=== PATIENT | male | born 1940 | race Caucasian/White ===

== ENCOUNTER → 2017-08-14 13:15 | Outpatient (CLI) | payer MEDICARE, SELFPAY ==
--- NOTE | 2017-08-14 13:19 | XR_ITS ---
XR knee RT 4V HISTORY: ITS.REASON: Pain ORDERING PHYSICIAN: Deng Neri MD PATIENT AGE: 77 years COMPARISON: November 18, 2016 FINDINGS: No fracture or dislocation. No lytic or blastic change. Normal mineralization. Minimal osteophytes at the medial compartment and patellofemoral joint Vascular calcification. IMPRESSION: Minimal osteoarthritic change. No change with no acute finding
--- NOTE | 2017-08-14 15:33 | XR_ITS ---
XR hip RT 2-3V w/pelvis HISTORY: ITS.REASON: Right hip pain ORDERING PHYSICIAN: Deng Neri MD PATIENT AGE: 77 years COMPARISON: 10/26/2015 FINDINGS: Mild osteoarthritic changes of the right hip are once again noted. Mild osteoarthritis also noted at the left hip. There is however now evidence of cortical irregularity of the femoral head seen on the abduction view with faint subcortical lucency suspicious for avascular necrosis with some cortical collapse. Consider MRI for confirmation. There remains some flattening of the lateral aspect of the femoral head on the right similar to the previous exam which may be seen with femoral acetabular impingement Surgical clips are present at the symphysis pubis. IMPRESSION: 1. 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 Consider confirmation with MRI. 2. Mild osteoarthritis of the both hips
== END ==
PROVIDERS: PCP Family Medicine; Visit Provider Orthopaedic Surgery
DX: M25.561 Pain in right knee (principal); M25.551 Pain in right hip
CPT/HCPCS: 73502; 73564

== ENCOUNTER → 2017-11-15 10:13 | Outpatient (POV) | payer MEDICARE, SELFPAY | PROVIDERS: Family Provider Family Medicine; PCP Family Medicine; Visit Provider Podiatrist | DX: Z00.00 Encounter for general adult medical examination without abnormal findings (principal) ==

== ENCOUNTER → 2017-11-20 08:14 | Outpatient (CLI) | payer MEDICARE, SELFPAY ==
[2017-11-20 10:54] LABS: Albumin Level 3.5 gm/dL (3.4-5.0); Anion Gap 9.5 mEq/L (5-15); Blood Urea Nitrogen 16 mg/dL (7-18); Calcium 8.8 mg/dL (8.5-10.1); Carbon Dioxide 30 mmol/L (21.0-32.0); Chloride 108 mmol/L (98-107); Creatinine,Serum 1.22 mg/dL (0.70-1.30); Estimated Glomerular Filt Rate 58 ml/min (>60); GFR (African American) 70 ML/MIN (>60); Glucose 124 mg/dL (74-106); Phosphorous 3.5 mg/dL (2.4-4.9); Potassium 4.5 mmoL/L (3.5-5.1); Sodium 143 mmol/L (136-145)
== END ==
PROVIDERS: Visit Provider Internal Medicine
DX: N18.3 Chronic kidney disease, stage 3 (moderate) (principal)
CPT/HCPCS: 36415; 80069

== ENCOUNTER → 2017-12-20 13:53 | Outpatient (POV) | payer MEDICARE, SELFPAY | PROVIDERS: Family Provider Family Medicine; PCP Family Medicine; Visit Provider Podiatrist | DX: Z00.00 Encounter for general adult medical examination without abnormal findings (principal) ==

== ENCOUNTER → 2018-06-23 08:25 | Outpatient (CLI) | payer MEDICARE, SELFPAY ==
[2018-06-23 09:50] LABS: Blood Urea Nitrogen 22 mg/dL (7-18); Creatinine,Serum 1.24 mg/dL (0.70-1.30); Estimated Glomerular Filt Rate 57 ml/min (>60); GFR (African American) 69 ML/MIN (>60)
== END ==
PROVIDERS: Visit Provider Family Medicine
DX: G45.9 Transient cerebral ischemic attack, unspecified (principal)
CPT/HCPCS: 36415; 82565; 84520

== ENCOUNTER → 2018-06-25 08:57 | Outpatient (CLI) | payer MEDICARE, SELFPAY ==
--- NOTE | 2018-06-25 | CI_ITS ---
Cerebrovascular Exam Indications: 433.10 Occlusion/stenosis of carotid artery without cerebral infarction. 435.9 Unspecified transient cerebral ischemia. IMPRESSIONS 1. The bilateral vertebral arteries are patent with normal antegrade flow. 2. Study suggests 50-69% stenosis involving the right internal carotid artery. 3. Study suggests 50-69%(upper end of scale)stenosis involving the left internal carotid artery. History: Risk factors: Hypertension. Diabetes mellitus. Carotid duplex study. Complete study and Doppler flow study including spectral analysis, color and anderson scale imaging. Height: Height: 180.3cm. Height: 71in. Weight: Weight: 65.8kg. Weight: 144.7lb. Body mass index: BMI: 20.2kg/m^2. Body surface area: BSA: 1.81m^2. Location: Vascular laboratory. Patient status: Outpatient. Tables: Arterial flow: + +--------+--------+ Location V sys V ed + +--------+--------+ Right CCA - proximal 112cm/s 23.6cm/s + +--------+--------+ Right CCA - distal 130cm/s 25.9cm/s + +--------+--------+ Right ECA 88.7cm/s -------- + +--------+--------+ Right ICA - proximal 144cm/s 40.9cm/s + +--------+--------+ Right ICA - mid 172cm/s 35.8cm/s + +--------+--------+ Right ICA - distal 157cm/s 38.3cm/s + +--------+--------+ Right vertebral 53.3cm/s -------- + +--------+--------+ Left CCA - proximal 94.3cm/s 19.6cm/s + +--------+--------+ Left CCA - distal 92.9cm/s 21.6cm/s + +--------+--------+ Left ECA 119cm/s -------- + +--------+--------+ Left ICA - proximal 216cm/s 68.5cm/s + +--------+--------+ Left ICA - mid 249cm/s 51.5cm/s + +--------+--------+ Left ICA - distal 141cm/s 27.1cm/s + +--------+--------+ Left vertebral 78.6cm/s -------- + +--------+--------+ Velocity ratios: + + + + + + Right, V sys Right, V ed Left, V sys Left, V ed + + + + + + Max ICA/dist CCA 1.32 1.58 2.68 3.17 + + + + + + (Report amended ) Electronically signed by: Juan Trent [id number]
--- NOTE | 2018-06-25 09:33 | CT_ITS ---
CT head/brain wo/w con HISTORY: Left-sided weakness, visual loss ITS.REASON: TIA ORDERING PHYSICIAN: Jared Ramos MD PATIENT AGE: 78 years COMPARISON: 06/17/2018 TECHNIQUE: Axial images obtained without and with contrast enhancement. 100 mL Isovue 300 given IV. Brain and bone windows reviewed. All CT scans at the facility use one or more dose reduction, viz: automated exposure control, ma/kV adjustment per patient size (including targeted exams where dose is matched to indication, i.e. head), or iterative reconstruction technique. FINDINGS: No midline shift, mass effect, intracranial hemorrhage, hydrocephalus, or extra-axial fluid collection is evident. There are mild periventricular ischemic gliotic changes. No enhancing lesions are evident. No of evolving infarctions. No mass effect. No acute intracranial hemorrhage. There is a well-circumscribed lucency in the right parietal bone which has a benign appearance and is similar to an older exam of 08/07/2013. There is severe bilateral ethmoid opacification and moderate to severe mucosal thickening of left maxillary sinus as well as moderate mucosal thickening left frontal sinus. A retention cyst is present in the right sphenoid sinus and there is mucosal thickening of the right maxillary sinus. IMPRESSION: 1. No acute intracranial findings with no significant change. 2. Sinusitis
--- NOTE | 2018-06-25 10:22 | HMH.ITSHM ---
Current Home Medications as stated by this patient Nader Briggs or customer development representative. []AMARYL,OMEPRAZOLE,LEVOTHRYOXINE,SIMVASTATIN,CLOPIDOGREL,B-12,B COMLEX,COQ10,VIT D3,LININOPRIL,ASPIRIN,
== END ==
PROVIDERS: PCP Family Medicine; Visit Provider Family Medicine
DX: G45.8 Other transient cerebral ischemic attacks and related syndromes
CPT/HCPCS: 70470; 93880; Q9967

== ENCOUNTER → 2018-07-21 15:00 | Outpatient (CLI) | payer MEDICARE, SELFPAY ==
--- NOTE | 2018-07-21 15:03 | CT_ITS ---
CT knee RT wo con INDICATION: Right knee pain ITS.REASON: RT KNEE PAIN ORDERING PHYSICIAN: Jared Ramos MD PATIENT AGE: 78 years COMPARISON: 08/14/2017 TECHNIQUE: Axial images are obtained without contrast. Sagittal and coronal reformatted images are reviewed as well. All CT scans at the facility use one or more dose reduction, viz: automated exposure control, ma/kV adjustment per patient size (including targeted exams where dose is matched to indication, i.e. head), or iterative reconstruction technique. FINDINGS: There are mild osteoarthritic changes involving all 3 compartments with slight decrease in the joint space medially and minimal osteophyte formation along the femoral condyles in the medial and lateral aspect of the tibia as well as the tibial spines. Mild osteophyte formation is also present at the posterior superior patella. No fracture or dislocation. No bony destructive process. There is diffuse atherosclerotic vascular calcification. There is a Harkins's cyst present extending into the superior aspect of the gastrocnemius. This cyst measures 4 cm longitudinal 1.2 cm AP and 1.4 cm transverse. This extends along the medial aspect of the calf. IMPRESSION: 1. Mild osteoarthritic changes involving all 3 compartments. 2. 4 cm Harkins cyst. 3. Atherosclerotic disease
== END ==
PROVIDERS: PCP Family Medicine; Visit Provider Family Medicine
DX: M25.561 Pain in right knee (principal)
CPT/HCPCS: 73700

== ENCOUNTER → 2018-08-27 07:43 | Outpatient (CLI) | payer MEDICARE, SELFPAY ==
--- NOTE | 2018-08-27 07:47 | MR_ITS ---
MR knee RT wo con Ordering Physician: Deepthi Martinez Patient Age: 78 years: Male HISTORY: ITS.REASON: RT KNEE PAIN Entire right knee pain 6 days 8 months TECHNIQUE: Multiplanar multisequence imaging performed on 1.5 [facility] COMPARISON :CT right knee June 2017 FINDINGS Medial compartment. Medial Meniscal Tear clearly evident involving the posterior horn extending to the body. Horizontal oblique tear extending to the inferior surface of the meniscus at posterior horn-body junction. Cartilage at the medial meniscus is fairly well maintained with only some mild diffuse thinning most evident at the tibial aspect Lateral compartment Lateral meniscus intact. Cartilage at the lateral compartment appear well maintained. Ligamentous/tendon: .. ACL and PCL are intact. . medial collateral ligament and lateral collateral ligament intact. Patellar tendon intact quadriceps tendon with slight signal variations just superior patella.-Most likely intact but cannot exclude minor edema here Patellofemoral joint. There may be some subtle chondral scuffing at the posterior collagen patella with very minimal.. Scant increased joint most evident at suprapatellar bursa Scant spurring about the margins of patella and patellofemoral joint. . Osseous structures. No bone contusion. There is a fluid-filled structure along the margin medial head gastrocnemius. This measures 6 cm length times up to 12 mm diameter. Suspect may be a Harkins's cyst as it seems to track towards the medial compartment./Posterior joint Dilated vein or other structure also considered but less likely IMPRESSION--------- 1. Medial Meniscal Tear-involving posterior horn & posterior body of medial meniscus . This extends through inferior surface meniscus at body-posterior horn junction 2. Elongated fluid-filled structure overlying the medial head gastrocnemius. Favor Harkins's cyst-like process. (Less likely, & doubt slow flow distended vein.) 3. Minor degenerative changes otherwise. ..Suspect subtle chondral scuffing patellofemoral joint
== END ==
PROVIDERS: PCP Family Medicine; Visit Provider Orthopaedic Surgery
DX: M25.561 Pain in right knee (principal)
CPT/HCPCS: 73721

== ENCOUNTER → 2018-10-13 13:51 | Outpatient (CLI) | payer MEDICARE, SELFPAY ==
[2018-10-13 14:04] LABS: Microscopic, Urine URINE MICROSCOPIC (MICROSCOPIC)
[2018-10-13 14:49] LABS: Basophils % 0.3 % (0.1-2.0); Eosinophils # 0.2 K/mm3 (0.0-0.4); Eosinophils % 2.6 % (0.1-12.0); Hematocrit 35.5 % (42.0-52.0); Hemoglobin 11.7 g/dL (14.1-18.0); Lymphocytes # 1.4 K/mm3 (0.7-4.5); Lymphocytes % 21.5 % (10-50); Mean Corpuscular HGB Conc 33.1 g/dL (31.8-35.4); Mean Corpuscular Hemoglobin 30.9 pg (27.0-31.2); Mean Corpuscular Volume 93.3 fl (80-94); Mean Platelet Volume 7.6 fl (7.4-10.4); Monocytes # 0.6 K/mm3 (0.1-1.0); Monocytes % 9.1 % (1.7-9.3); Neutrophils # 4.4 K/mm3 (1.8-7.8); Neutrophils % 66.6 % (37.0-80.0); Platelet Count 216 K/mm3 (142-424); Red Cell Distribution Width 13.4 % (11.5-17.5); White Blood Count 6.6 K/mm3 (4.8-10.8)
[2018-10-13 15:09] LABS: Appearance,Urine CLEAR (Clear); Bilirubin,Urine Negative (Negative); Blood, Urine Negative (Negative); Color,Urine YELLOW (Yellow); Glucose,Urine (UA) Negative (Negative); Ketones,Urine Negative (Negative); Leukocyte Esterase,Urine Negative (Negative); Nitrate,Urine Negative (Negative); Protein,Urine Negative (Negative); Specific Gravity, Urine <= 1.005 (1.005-1.030); Urobilinogen,Urine 0.2 EU/dl (0.2)
[2018-10-13 15:22] LABS: Bacteria,Urine Trace /lpf; Mucus,Urine 1+ /lpf; Squamous Epithelial Cell,Urine Occasional #/hpf (0-5); WBC,Urine Occasional #/hpf (0-3)
[2018-10-13 15:24] LABS: Creatinine,Urine Random 36 mg/dL (20-320); Total Protein,Urine Random 18.5 mg/dL (0.0-11.9)
[2018-10-13 17:34] LABS: Albumin Level 3.7 gm/dL (3.4-5.0); Anion Gap 14.8 mEq/L (5-15); Blood Urea Nitrogen 23 mg/dL (7-18); Calcium 8.5 mg/dL (8.5-10.1); Carbon Dioxide 27 mmol/L (21.0-32.0); Chloride 107 mmol/L (98-107); Creatinine,Serum 1.32 mg/dL (0.70-1.30); Estimated Glomerular Filt Rate 53 ml/min (>60); GFR (African American) 64 ML/MIN (>60); Glucose 64 mg/dL (74-106); Phosphorous 3.1 mg/dL (2.4-4.9); Potassium 4.8 mmoL/L (3.5-5.1); Sodium 144 mmol/L (136-145)
== END ==
PROVIDERS: Visit Provider Internal Medicine
DX: N18.3 Chronic kidney disease, stage 3 (moderate) (principal)
CPT/HCPCS: 36415; 80069; 81001; 82570; 82776; 84155; 85025

== ENCOUNTER → 2019-04-13 08:29 | Outpatient (CLI) | payer MEDICARE, SELFPAY ==
[2019-04-13 08:37] LABS: Microscopic, Urine URINE MICROSCOPIC (MICROSCOPIC)
[2019-04-13 09:09] LABS: Basophils % 0.4 % (0.1-2.0); Eosinophils # 0.2 K/mm3 (0.0-0.4); Eosinophils % 2.7 % (0.1-12.0); Hemoglobin 11.6 g/dL (14.1-18.0); Lymphocytes # 1.8 K/mm3 (0.7-4.5); Lymphocytes % 23.4 % (10-50); Mean Corpuscular HGB Conc 31.2 g/dL (31.8-35.4); Mean Corpuscular Hemoglobin 28.9 pg (27.0-31.2); Mean Corpuscular Volume 92.8 fl (80-94); Mean Platelet Volume 8.2 fl (7.4-10.4); Monocytes # 0.5 K/mm3 (0.1-1.0); Monocytes % 6.9 % (1.7-9.3); Neutrophils # 5.1 K/mm3 (1.8-7.8); Neutrophils % 66.5 % (37.0-80.0); Platelet Count 215 K/mm3 (142-424); Red Blood Count 3.99 M/mm3 (4.60-6.20); Red Cell Distribution Width 14.5 % (11.5-17.5); White Blood Count 7.7 K/mm3 (4.8-10.8)
[2019-04-13 10:09] LABS: Albumin Level 3.4 gm/dL (3.4-5.0); Blood Urea Nitrogen 16 mg/dL (7-18); Calcium 8.7 mg/dL (8.5-10.1); Carbon Dioxide 29 mmol/L (21.0-32.0); Chloride 111 mmol/L (98-107); Creatinine,Serum 1.16 mg/dL (0.70-1.30); Estimated Glomerular Filt Rate 61 ml/min (>60); GFR (African American) 74 ML/MIN (>60); Glucose 120 mg/dL (74-106); Phosphorous 2.7 mg/dL (2.4-4.9); Sodium 147 mmol/L (136-145)
[2019-04-13 11:46] LABS: Appearance,Urine CLEAR (Clear); Blood, Urine Negative (Negative); Color,Urine YELLOW (Yellow); Glucose,Urine (UA) Negative (Negative); Ketones,Urine Negative (Negative); Leukocyte Esterase,Urine Negative (Negative); Nitrate,Urine Negative (Negative); Protein,Urine 2+ (Negative); Specific Gravity, Urine >= 1.030 (1.005-1.030); Urobilinogen,Urine 0.2 EU/dl (0.2)
[2019-04-13 11:59] LABS: Bacteria,Urine Trace /lpf; Hyaline Casts,Urine Occasional #/lpf (0); Mucus,Urine 1+ /lpf
[2019-04-13 19:49] LABS: Creatinine,Urine Random 299 mg/dL (20-320); Total Protein,Urine Random 175.5 mg/dL (0.0-11.9)
[2019-04-13 21:21] LABS: PH,Urine 5.5 (5.0-8.5)
[2019-04-13 21:33] LABS: Bilirubin,Urine Negative (Negative)
[2019-04-14 15:01] LABS: Vitamin D 25 Hydroxy 47.3 ng/mL (30.0-100.0)
[2019-04-14 15:19] LABS: Calcium, Ionized 5.3 mg/dL (4.5-5.6)
[2019-04-15 10:20] LABS: Parathyroid Hormone Intact 27 pg/mL (15-65)
== END ==
PROVIDERS: Visit Provider Internal Medicine
DX: N18.3 Chronic kidney disease, stage 3 (moderate) (principal)
CPT/HCPCS: 36415; 80069; 81001; 82330; 82570; 82652; 83970; 84155; 85025

== ENCOUNTER 2019-04-29 15:51 | Observation (INO) ==
[2019-04-29 17:11] LABS: Basophils % 0.4 % (0.1-2.0); Eosinophils # 0.1 K/mm3 (0.0-0.4); Eosinophils % 1.8 % (0.1-12.0); Hematocrit 39.5 % (42.0-52.0); Lymphocytes # 1.3 K/mm3 (0.7-4.5); Lymphocytes % 19.1 % (10-50); Mean Corpuscular HGB Conc 30.4 g/dL (31.8-35.4); Mean Corpuscular Volume 93.3 fl (80-94); Mean Platelet Volume 7.9 fl (7.4-10.4); Monocytes # 0.5 K/mm3 (0.1-1.0); Monocytes % 6.9 % (1.7-9.3); Neutrophils # 4.8 K/mm3 (1.8-7.8); Neutrophils % 71.9 % (37.0-80.0); Platelet Count 197 K/mm3 (142-424); Red Blood Count 4.23 M/mm3 (4.60-6.20); Red Cell Distribution Width 14.6 % (11.5-17.5); White Blood Count 6.7 K/mm3 (4.8-10.8)
[2019-04-29 17:24] LABS: Alanine Aminotransferase 26 U/L (12-78); Albumin Level 3.7 gm/dL (3.4-5.0); Alkaline Phosphatase 93 U/L (46-116); Anion Gap 12.9 mEq/L (5-15); Aspartate Amino Transferase 31 U/L (15-37); Bilirubin,Total 0.4 mg/dL (0.2-1.0); Blood Urea Nitrogen 24 mg/dL (7-18); Calcium 8.6 mg/dL (8.5-10.1); Carbon Dioxide 29 mmol/L (21.0-32.0); Chloride 105 mmol/L (98-107); Globulin 3.8 gm/dl (1.3-3.2); Glucose 96 mg/dL (74-106); Sodium 143 mmol/L (136-145); Total Protein,Serum 7.5 gm/dL (6.4-8.2)
--- NOTE | 2019-04-29 17:25 | Emergency Department Note ---
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, Occlusion of common femoral artery Altered mental status Qualifiers: Altered mental status type: unspecified Qualified Code(s): R41.82 - Altered mental status, unspecified Hypertension Qualifiers: Hypertension type: essential hypertension Qualified Code(s): I10 - Essential (primary) hypertension Disposition: Admitted As Inpatient Condition on Discharge: Fair - Critical Care Critical Care Time: Yes (30) Attestation: On 04/29/19, the high probability of a clinically significant, sudden or life threatening deterioration of the following system(s) required my full and direct attention, intervention and personal management. The time I documented below is in addition to time spent performing reported procedures but includes the following listed in this critical care notation. Total Critical Care Time: 30 Vital system(s) involved:: Circulatory Failure, Central Nervous System, Metabolic Failure My critical care processes included: Assessment & monitoring of V/S, Initial and Re-exams, Data Review/Interpretation, Coordinating Care, Medication Orders and management, Documentation Medical Decision Making - Jovani Inquiry Pt receiving controlled substance: No Vital Signs: 04/29/19 16:07 04/29/19 17:26 04/29/19 19:38 Temperature 98.4 F Temperature Source Oral Pulse Rate Pulse Rate [Right Radial] 74 77 70 Respiratory Rate 18 16 Blood Pressure Blood Pressure [Right Arm] 215/117 H 204/83 H 158/84 H Blood Pressure Mean [Right Arm] 149 123 108 Blood Pressure Source Blood Pressure Source [Right Arm] Automatic Cuff Manual Cuff/ Doppler Blood Pressure Position Blood Pressure Position [Right Arm] Sitting Sitting 02 Sat by Pulse Oximetry 97 97 95 Oxygen Delivery Method Room Air Room Air Room Air 04/29/19 21:49 Temperature 98.0 F Temperature Source Temporal Artery Scan Pulse Rate 65 Pulse Rate [Right Radial] Respiratory Rate 19 Blood Pressure 154/70 H Blood Pressure [Right Arm] Blood Pressure Mean [Right Arm] Blood Pressure Source Automatic Cuff Blood Pressure Source [Right Arm] Blood Pressure Position Sitting Blood Pressure Position [Right Arm] 02 Sat by Pulse Oximetry Oxygen Delivery Method Room Air - Lab Data Lab results reviewed: Yes: I reviewed the patient's lab results. Lab Results 04/29/19 16:35: POC Glucose 92 04/29/19 16:50: WBC 6.7, RBC 4.23 L, Hgb 12.0 L, Hct 39.5 L, MCV 93.3, MCH 28.4, MCHC 30.4 L, RDW 14.6, Plt Count 197, MPV 7.9, Neut % (Auto) 71.9, Lymph % (Auto) 19.1, Craig % (Auto) 6.9, Eos % (Auto) 1.8, Baso % (Auto) 0.4, Neut # (Auto) 4.8, Lymph # (Auto) 1.3, Craig # (Auto) 0.5, Eos # (Auto) 0.1, Baso # (Auto) 0.0 04/29/19 16:50: Sodium 143, Potassium 3.9, Chloride 105, Carbon Dioxide 29, Anion Gap 12.9, BUN 24 H, Creatinine 1.55 H, Estimated Creat Clear 39, Estimated GFR 44 L, Est GFR ( Amer) 53 L, Glucose 96 D, Calcium 8.6, Total Bilirubin 0.4, AST 31 D, ALT 26, Alkaline Phosphatase 93, Troponin I < 0.02, Total Protein 7.5, Albumin 3.7, Globulin 3.8 H, Albumin/Globulin Ratio 1.0 L 04/29/19 16:50: Lactate 1.2 04/29/19 19:23: Troponin I < 0.02 Result diagrams: 04/29/19 16:50 04/29/19 16:50 Orders (Tests/Meds): ED MEDICATIONS Generic Name Dose Route Start Last Admin Trade Name Freq PRN Reason Stop Dose Admin Acetaminophen 650 mg 04/29/19 21:21 Acetaminophen 325mg Tab PO 05/29/19 21:20 Q4HP PRN As Needed for Fever or Pain Aspirin 81 mg 04/29/19 21:21 04/29/19 22:59 Aspirin 81mg Enteric Coated Tablet PO 05/29/19 21:20 Not Given DAILY BINA Atorvastatin Calcium 20 mg 04/29/19 21:21 04/29/19 22:48 Lipitor 20mg Tablet PO 05/29/19 21:20 20 mg DAILY BINA Administration Clopidogrel Bisulfate 75 mg 04/29/19 21:21 04/29/19 22:47 Plavix 75mg Tablet PO 05/29/19 21:20 75 mg ONCE BINA Administration Clopidogrel Bisulfate 75 mg 04/29/19 23:00 04/29/19 22:59 Plavix 75mg Tablet PO 05/29/19 22:59 75 mg HS BINA Administration Glimepiride 2 mg 04/30/19 09:00 Amaryl 2mg Tablet PO 05/30/19 08:59 DAILY BINA Lisinopril 20 mg 04/29/19 21:21 04/29/19 22:47 Zestril 5mg Tablet PO 05/29/19 21:20 20 mg BID BINA Administration Metoprolol Tartrate 25 mg 04/29/19 21:21 04/29/19 22:48 Lopressor 25mg Tablet PO 05/29/19 21:20 25 mg BID BINA Administration Non-Formulary Medication 2,000 unit 04/29/19 21:21 Cholecalciferol (Vitamin D3) [Vitamin D3] PO 05/29/19 21:20 ONCE BINA Non-Formulary Medication 1 mg 04/29/19 21:21 04/29/19 22:59 Krill Oil PO 05/29/19 21:20 Not Given DAILY BINA Non-Formulary Medication 88 mcg 04/29/19 21:21 Levothyroxine Sodium [Tirosint] PO 05/29/19 21:20 ONCE BINA Non-Formulary Medication 40 mg 04/29/19 21:21 Omeprazole [Omeprazole 40mg Capsule] PO 05/29/19 21:20 ONCE BINA Non-Formulary Medication 200 mg 04/29/19 21:21 Ubidecarenone [Co Q-10] PO 05/29/19 21:20 ONCE BINA Non-Formulary Medication 0 mcg 04/29/19 21:00 04/29/19 22:59 Mecobalamin [B-12] SL 05/29/19 20:59 Not Given HS BINA Ondansetron HCl 4 mg 04/29/19 21:21 Zofran 4mg/2ml Vial IV 05/29/19 21:20 Q8HP PRN Nausea Discontinued Medications Generic Name Dose Route Start Last Admin Trade Name Freq PRN Reason Stop Dose Admin Acetaminophen 1,000 mg 04/29/19 17:57 04/29/19 17:59 Tylenol 500mg Tablet PO 04/29/19 17:58 1,000 mg ONCE ONE Administration Clonidine HCl 0.1 mg 04/29/19 17:27 04/29/19 17:59 Clonidine 0.1mg Tablet PO 04/29/19 17:28 0.1 mg ONCE ONE Administration Ioversol 75 ml 04/29/19 18:32 04/29/19 18:33 Rad-Optiray 350 100ml Vial IV 04/29/19 18:33 75 ml ONCE ONE Administration Protocol Sodium Chloride 10 ml 04/29/19 18:32 04/29/19 18:33 Rad-Saline Flush 10ml Syringe IV 04/29/19 18:33 10 ml ONCE ONE Administration ORDERS Category Date Time Status CT abdomen pelvis w con Stat Cat Scan 04/29/19 17:25 Taken Basic Metabolic Panel AMLAB Lab 04/30/19 06:00 Ordered Complete Blood Count Auto Diff AMLAB Lab 04/30/19 06:00 Ordered Troponin I Q6H Lab 04/30/19 05:51 Ordered Blood Culture Stat Micro 04/29/19 17:42 Received - CT Data CT Scan: Head Time Received: 17:[address] Reviewed: Yes: I have reviewed the patient's CT results, I have viewed the radiologist's interpretation Findings Narrative: FINDINGS: No midline shift, mass effect, intracranial hemorrhage, hydrocephalus, or extra-axial fluid collection is evident. There is generalized atrophy with hypoattenuation of the periventricular white matter consistent with microangiopathic changes. The calvarium has an unremarkable appearance. No mastoid effusion. Retention cyst is present in the right aspect of the sphenoid sinus. No sinus air-fluid level. IMPRESSION: No acute intracranial finding Dictated by: Juan Trent MD 04/29/2019 16:55 Electronically signed by Juan Trent MD in [place] 04/29/2019 16:55 CT of the abdomen pelvis reports CT of the abdomen pelvis reports extensive narrowing/occlusion due to atherosclerotic changes of bilateral common femoral artery. - Physician Consults Physician Consulted: Dr. Louis Time: 20:00 Reason -: Admission Comment/Response: Discussed with Dr. Louis regarding the patient and plan to get the patient admitted to the floor. Additional Consult: Dr. Sam Time: 20:15 Reason -: Pt condition Comment/Response: Discussed with Dr. Sam, the reduction plant supervisor, regarding the patient CT scan finding of the bilateral common femoral artery occlusion and he was agreeable to get the pt admited to the hospitalist service so that he can consult and follow-up on the patient. - Reevaluation(s) Time: 19:30 Reevaluation #1: Patient was improving in the emergency department. His blood pressure was gradually getting better. He still seems to be slightly confused but he was more listening and less restless. I discussed the CT scan finding and the lab findings with the patient and the daughter. Plan to do a CT of the abdomen pelvis to review any other causes of hypertension. Altered Mental Status HPI - General Chief Complaint: Altered Mental Status Stated Complaint: BP,MIJARES,Confussed Time Seen by Provider: 04/29/19 17:00 Mode of Arrival: Ambulatory Source of Information: Relative Limitations: No Limitations Description of Symptoms (Recalled from ER Triage Doc. by RN): PT BROUGHT IN BY DAUGHTER WITH C/O MIJARES, ELEVATED BP AND INCREASED CONFUSION SINCE THEIR ED VISIT LAST NIGHT. - History of Present Illness HPI narrative: 78-year-old male was brought in by the daughter for having altered mental status with confusion and elevated blood pressure at home. According to the daughter the patient has not been acting right for the last 2 to 3 days. His blood pressure has also been significantly high for the same. Of time. He was brought to the emergency department yesterday evening for the high blood pressure and he was discharged home after being managed for the same. He was feeling better after the blood pressure was back to normal. He continued his medications and went to his primary care provider this morning, but since the evening at about 3 PM he started being confused again and his blood pressure was being elevated. The daughter states the patient has been taking his medications regularly. When she called her primary care provider about the elevated blood pressure and the confusion she was informed to bring the patient back to the emergency department so that he could be evaluated further. Patient does not give much history. He denies having any chest pain or shortness of breath. Denies having any nausea or vomiting. Patient seems to be confused and acting erratic at times. MD complaint: altered mental status, confusion Onset (ago): hour(s) Severity: moderate Consistency of symptoms: constant - Related Data Home Medications Medication Instructions Recorded Confirmed clopidogrel 75 mg tablet 75 mg PO DAILY 08/14/17 04/29/19 glimepiride 2 mg tablet 4 mg PO QAM 08/14/17 04/29/19 krill oil 500 mg capsule 1 mg PO DAILY 08/14/17 04/29/19 levothyroxine 88 mcg capsule 88 mcg PO ONCE 08/14/17 04/29/19 mecobalamin (vitamin B12) 1,000 2,000 mcg SUBLINGUAL DAILY 08/14/17 04/29/19 mcg disintegrating tablet,sublingual omeprazole 40 mg capsule,delayed 40 mg PO ONCE 08/14/17 04/29/19 release cholecalciferol (vitamin D3) 50 4,000 unit PO ONCE 10/31/17 04/29/19 mcg (2,000 unit) capsule coenzyme Q10 75 mg capsule 100 mg PO DAILY cap 10/31/17 04/29/19 lisinopril 5 mg tablet 20 mg PO BID 90 Days #90 01/09/18 04/29/19 aspirin 81 mg tablet,delayed 81 mg PO DAILY 07/29/18 04/29/19 release atorvastatin 20 mg tablet 20 mg PO DAILY 12/09/18 04/29/19 lancets 30 gauge See Dose Instructions .ROUTE 02/10/19 04/29/19 .MEDSUPPLY #100 each metoprolol tartrate 25 mg tablet 25 mg PO BID #180 tab 02/10/19 04/29/19 Vitamin B Complex [B Complete] 1 each PO DAILY 04/29/19 04/29/19 Allergies Allergy/AdvReac Type Severity Reaction Status Date / Time NSAIDS (Non-Steroidal Allergy Unknown Kidneys Verified 04/28/19 09:21 Anti-Inflamma [facility] History - Hepatitis A Screen Drug use history?: No High risk sexual behaviors?: No History of sexually transmitted infection?: No Currently employed?: No Childcare worker?: No Do you have indoor plumbing?: Yes Do you have electricity?: Yes Attestation statement:: This patient has been screened for Hepatitis A risk factors. 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 Varicose veins right and left leg, - Social History Smoking Status: Never smoker Alcohol Intake: never Alcohol Intake Frequency:: other Substance Use Type: denies use Occupational Status: retired Housing: house Household Members: family Family Hx:: Hypertension, Cancer ROS Obtained: Yes All systems reviewed & no additional complaints Physical Exam - General General appearance: alert, in no apparent distress, other (Patient looks confused and does not answer questions appropriately. He seems to be acting erratic at times.) - Head Head exam: atraumatic, normocephalic, normal inspection - Eye Eye exam: Present: normal appearance, PERRL, EOMI - ENT ENT exam: Present: normal exam, normal oropharynx, mucous membranes moist, TM's normal bilaterally, normal external ear exam - Neck Neck exam: Present: normal inspection, full ROM, trachea midline - Chest Chest inspection: Present: normal inspection, symmetric chest wall rise. Absent: tenderness - Respiratory Respiratory exam: Present: normal lung sounds bilaterally. Absent: respiratory distress - Cardiovascular Cardiovascular exam: Present: regular rate, normal rhythm, other (Patient's b lood pressure is consistently high in the emergency department.). Absent: JVD - Abdominal Exam Abdominal exam: Present: soft, normal bowel sounds. Absent: distention, tenderness, guarding - Extremities Exam Extremities exam: Present: normal inspection, full ROM, normal capillary refill. Absent: calf tenderness - Back Exam Back exam: Present: normal inspection. Absent: tenderness - Neurological Exam Neurological exam: Present: alert, CN II-XII intact, reflexes normal, other (Patient seems to be confused. Does not answer questions appropriately. He is able to recall past memories but does not recall present short-term memories.) - Psychiatric Psychiatric exam: Present: normal affect, normal mood - Skin Skin exam: Present: warm, dry, intact, normal color
[2019-04-30 06:48] LABS: Basophils % 0.3 % (0.1-2.0); Eosinophils # 0.1 K/mm3 (0.0-0.4); Hematocrit 32.5 % (42.0-52.0); Lymphocytes # 1.2 K/mm3 (0.7-4.5); Monocytes # 0.4 K/mm3 (0.1-1.0); Neutrophils # 2.9 K/mm3 (1.8-7.8); Red Cell Distribution Width 14.6 % (11.5-17.5); White Blood Count 4.6 K/mm3 (4.8-10.8)
[2019-04-30 07:26] LABS: Eosinophils % 2.4 % (0.1-12.0); Lymphocytes % 26.3 % (10-50); Mean Corpuscular HGB Conc 30.9 g/dL (31.8-35.4); Mean Corpuscular Volume 91.7 fl (80-94); Mean Platelet Volume 8.3 fl (7.4-10.4); Monocytes % 8.2 % (1.7-9.3); Neutrophils % 62.9 % (37.0-80.0); Platelet Count 175 K/mm3 (142-424); Red Blood Count 3.54 M/mm3 (4.60-6.20)
[2019-04-30 07:39] LABS: Anion Gap 11.9 mEq/L (5-15); Calcium 8.2 mg/dL (8.5-10.1)
--- NOTE | 2019-04-30 08:19 | History & Physical Report ---
*Admission Date: 04/29/19 *Chief complaint: Confusion and headache *History of present illness: 78-year-old male with history of hypertension, vascular disease with prior carotid artery stenting, diabetes, chronic kidney disease presented to the emergency department with his daughter over rising blood pressure with associated confusion and headache. The patient had been to the ER the previous day (April 28) for elevated blood pressure. He had followed up in the office on April 29 and was given a PRN clonidine as his blood pressure during an office evaluation was relatively normal with a systolic of 140. As the day progressed patient's blood pressure lo and he developed a headache. His daughter then noticed he seemed confused and could not answer questions appropriately. My office was contacted and instructed the daughter to bring the patient back to the emergency department. Patient systolics were as high as 220. Work-up was performed and there was no evidence of acute stroke. Patient's blood pressure was treated and he was admitted for further evaluation and observation. Patient underwent a CT of the abdomen and pelvis which is shown questionable ostial occlusion of 1 of the renal arteries. Daughter is unaware of any prior renal angiogram. His current antihypertensive regimen is metoprolol tartrate 25 mg twice daily and lisinopril 20 mg twice daily. 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 [facility] History I have reviewed the patient's past medical history: Yes Medical History: Reports:: Cancer, Diabetes Mellitus Type 2, Gastroesophageal Reflux Disease(GERD), Hyperlipidemia, Hypertension, Kidney Stones, Transient Ischemic Attacks (TIA) *Have you ever received a pneumonia vaccine?: Yes *Have you received a flu vaccine this season?: Yes Other Medical History: Reports: Arthritis, Hypothyroidism Laterality Cases: Left: Arthroscopy Knee, Arthroscopy Shoulder, Right: Total Hip Replacement Other Surgeries: Yes: Cholecystectomy, Colonoscopy, EGD, Other Amputation: No Fractures: No - *Social History Educational Level: Completed High School Smoking Status: Never smoker Alcohol Intake: never Alcohol Intake Frequency:: other Substance Use Type: denies use *Occupational Status:: retired Housing: house Household Members: family *Travel in the last 8 weeks: None Family Hx:: Hypertension, Cancer Review of Systems - Constitutional Denies anorexia, Denies body ache(s), Denies chills - *Cardiovascular Denies chest pain, Denies chest pain at rest, Denies chest pain with activity - *Respiratory Denies change in phlegm color, Denies chest congestion, Denies cough - *Gastrointestinal Denies abdominal pain - *Neurologic Reports behavioral changes, Reports confusion, Reports unsteadiness Meds Home Medications Medication Instructions Recorded Confirmed Type clopidogrel 75 mg tablet 75 mg PO DAILY 08/14/17 04/29/19 History glimepiride 2 mg tablet 4 mg PO QAM 08/14/17 04/29/19 History krill oil 500 mg capsule 1 mg PO DAILY 08/14/17 04/29/19 History levothyroxine 88 mcg capsule 88 mcg PO ONCE 08/14/17 04/29/19 History mecobalamin (vitamin B12) 1,000 2,000 mcg SUBLINGUAL DAILY 08/14/17 04/29/19 History mcg disintegrating tablet,sublingual omeprazole 40 mg capsule,delayed 40 mg PO ONCE 08/14/17 04/29/19 History release cholecalciferol (vitamin D3) 50 4,000 unit PO ONCE 10/31/17 04/29/19 History mcg (2,000 unit) capsule coenzyme Q10 75 mg capsule 100 mg PO DAILY cap 10/31/17 04/29/19 History lisinopril 5 mg tablet 20 mg PO BID 90 Days #90 01/09/18 04/29/19 History aspirin 81 mg tablet,delayed 81 mg PO DAILY 07/29/18 04/29/19 History release atorvastatin 20 mg tablet 20 mg PO DAILY 12/09/18 04/29/19 History lancets 30 gauge See Dose Instructions .ROUTE 02/10/19 04/29/19 History .MEDSUPPLY #100 each metoprolol tartrate 25 mg tablet 25 mg PO BID #180 tab 02/10/19 04/29/19 History Vitamin B Complex [B Complete] 1 each PO DAILY 04/29/19 04/29/19 History Allergies Allergy/AdvReac Type Severity Reaction Status Date / Time NSAIDS (Non-Steroidal Allergy Unknown Kidneys Verified 04/28/19 09:21 Anti-Inflamma Exam Vital signs and Labs for Last 24 Hours: Temp Pulse Resp BP Pulse Ox 97.5 F L 54 L 18 117/56 L 98 04/30/19 08:00 04/30/19 08:00 04/30/19 08:00 04/30/19 08:00 04/30/19 08:00 Laboratory Results - last 24 hr 04/29/19 16:35: POC Glucose 92 04/29/19 16:50: WBC 6.7, RBC 4.23 L, Hgb 12.0 L, Hct 39.5 L, MCV 93.3, MCH 28.4, MCHC 30.4 L, RDW 14.6, Plt Count 197, MPV 7.9, Neut % (Auto) 71.9, Lymph % (Auto) 19.1, [place] % (Auto) 6.9, Eos % (Auto) 1.8, Baso % (Auto) 0.4, Neut # (Auto) 4.8, Lymph # (Auto) 1.3, [place] # (Auto) 0.5, Eos # (Auto) 0.1, Baso # (Auto) 0.0 04/29/19 16:50: Sodium 143, Potassium 3.9, Chloride 105, Carbon Dioxide 29, Anion Gap 12.9, BUN 24 H, Creatinine 1.55 H, Estimated Creat Clear 39, Estimated GFR 44 L, Est GFR ( Amer) 53 L, Glucose 96 D, Calcium 8.6, Total Bilirubin 0.4, AST 31 D, ALT 26, Alkaline Phosphatase 93, Troponin I < 0.02, Total Protein 7.5, Albumin 3.7, Globulin 3.8 H, Albumin/Globulin Ratio 1.0 L 04/29/19 16:50: Lactate 1.2 04/29/19 19:23: Troponin I < 0.02 04/29/19 22:24: Troponin I < 0.02 04/29/19 23:26: Troponin I < 0.02 04/30/19 03:39: POC Glucose 92 04/30/19 06:20: Troponin I < 0.02 04/30/19 06:20: Sodium 144, Potassium 3.9, Chloride 109 H, Carbon Dioxide 27, Anion Gap 11.9, BUN 22 H, Creatinine 1.21 D, Estimated Creat Clear 50, Estimated GFR 58 L, Est GFR ( Amer) 71 D, Glucose 94, Calcium 8.2 L 04/30/19 06:32: WBC 4.6 L D, RBC 3.54 L, Hct 32.5 L, MCV 91.7, MCH 28.3, MCHC 30.9 L, RDW 14.6, Plt Count 175, MPV 8.3, Neut % (Auto) 62.9, Lymph % (Auto) 26.3, [place] % (Auto) 8.2, Eos % (Auto) 2.4, Baso % (Auto) 0.3, Neut # (Auto) 2.9, Lymph # (Auto) 1.2, [place] # (Auto) 0.4, Eos # (Auto) 0.1, Baso # (Auto) 0.0 I & O for Last 24 hours: Intake & Output 04/27/19 04/28/19 04/29/19 04/30/19 11:59 11:59 11:59 11:59 Intake Total 1000 / 1000 Balance 1000 / 1000 Weight 148 lb 15.991 oz Narrative: Patient is awake and alert. There is no neurologic deficit. Oropharynx is moist. Neck has a right carotid bruit. Lungs are clear. Heart has a regular rate and rhythm. Abdomen is soft and nontender. Extremities are warm to the touch and he has no pedal edema. Motor and sensory function are intact. Patient is oriented to person place and time Assessment and Plan (1) Hypertensive emergency Current visit: Yes Status: Acute Category: Medical Code(s): I16.1 - Hypertensive emergency (2) Chronic kidney disease Current visit: Yes Status: Acute Category: Medical Code(s): N18.9 - Chronic kidney disease, unspecified (3) Hypertensive encephalopathy Current visit: Yes Status: Acute Category: Medical Code(s): I67.4 - Hypertensive encephalopathy - Assessment and plan all Dx Assessment and Plan for all problems:: This morning patient's blood pressure is well controlled. He will be given his home medications. A CT angiogram of the abdomen to evaluate the renal arteries has been ordered rule out renal artery stenosis
--- NOTE | 2019-04-30 09:57 | Pharmacy Consult Notes ---
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 (Acute) Occlusion of common femoral artery (Acute) Hypertensive emergency (Acute) Chronic kidney disease (Acute) - VTE Risk Labs: VTE Related Lab Results Hgb 10.0 g/dL (14.1-18.0) L D 04/30/19 06:32 Hct 32.5 % (42.0-52.0) L 04/30/19 06:32 Plt Count 175 K/mm3 (142-424) 04/30/19 06:32 BUN 22 mg/dL (7-18) H 04/30/19 06:20 Creatinine 1.21 mg/dL (0.70-1.30) D 04/30/19 06:20 Estimated Creat Clear 50 mL/min (50-200) 04/30/19 06:20 Was VTE Risk Assessment Performed: Yes VTE Score: 3 VTE Risk Level: Low Risk - Prophylaxis VTE Prophylaxis Ordered?: Yes Types of VTE Prophylaxis: TEDS Knee High Location of Applied Device: Bilateral Lower Extremeties - VTE Diagnosis Confirmed Treatment or plan recommended: Continue Current Treatment
--- NOTE | 2019-04-30 15:09 | Consult Report ---
History of Present Illness Consult date: 04/30/19 Requesting physician: Waldo Weiner Chief complaint: headache and high BP Additional Medical History:: 1. HTN 2. Carotid artery stenosis status post left carotid endarterectomy 3. Hyperlipidemia 4. Diabetes 5. History of thyroid cancer status post radiation 6. TIA History of present illness: This is a 78-year-old white gentleman who presented to the emergency department with complaints of hypertension and headache. The patient states that his blood pressure has been high for a few days. He initially presented to the emergency department here at [facility] on April 28. He was having some confusion, headache and elevated blood pressures. He was treated in the emergency department and his blood pressure did improve. He was sent home and the next day he went to his primary care provider's office and was treated with as needed clonidine for his high blood pressure at that time. His blood pressure did improve to 140 systolic and the patient was sent home. As the day progressed his blood pressure began to rise again and his headache got worse. The patient was getting confused because of his headache and could not answer questions appropriately so his daughter contacted his primary care providers office and she was instructed to bring him back to the emergency department. The patient's blood pressure has been as high as 220 systolic. He did have a CAT scan of his brain which showed no evidence of a stroke. The patient denies any chest pain or pressure. He denies any shortness of breath or edema. He denies any fever, chills, nausea, vomiting, diarrhea, PND or orthopnea. During my evaluation he is alert and oriented x3 and he is able to answer all of my questions appropriately. He denies any history of KS or coronary artery disease. He does report a history of carotid artery stenosis and he is status post left carotid endarterectomy. 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 During my examination the patient is headache free and his blood pressure is on the high side, but improved. The patient denies any leg pain or claudication. [facility] History I have reviewed the patient's past medical history: Yes Medical History: Reports:: Cancer, Diabetes Mellitus Type 2, Gastroesophageal Reflux Disease(GERD), Hyperlipidemia, Hypertension, Kidney Stones, Transient Ischemic Attacks (TIA) *Have you ever received a pneumonia vaccine?: Yes *Have you received a flu vaccine this season?: Yes Other Medical History: Reports: Arthritis, Hypothyroidism Laterality Cases: Left: Arthroscopy Knee, Arthroscopy Shoulder, Right: Total Hip Replacement Other Surgeries: Yes: Cholecystectomy, Colonoscopy, EGD, Other Amputation: No Fractures: No - *Social History Educational Level: Completed High School Smoking Status: Never smoker Alcohol Intake: never Alcohol Intake Frequency:: other Substance Use Type: denies use *Occupational Status:: retired Housing: house Household Members: family *Travel in the last 8 weeks: None Family Hx:: Hypertension, Cancer Meds Home Medications Medication Instructions Recorded Confirmed Type clopidogrel 75 mg tablet 75 mg PO HS 08/14/17 04/30/19 History glimepiride 2 mg tablet 4 mg PO DAILY 08/14/17 04/30/19 History krill oil 500 mg capsule 1 cap PO DAILY 08/14/17 04/30/19 History levothyroxine 88 mcg capsule 88 mcg PO DAILY 08/14/17 04/30/19 History mecobalamin (vitamin B12) 1,000 1,000 mcg SUBLINGUAL DAILY 08/14/17 04/30/19 History mcg disintegrating tablet,sublingual omeprazole 40 mg capsule,delayed 40 mg PO HS 08/14/17 04/30/19 History release cholecalciferol (vitamin D3) 50 4,000 unit PO DAILY 10/31/17 04/30/19 History mcg (2,000 unit) capsule lisinopril 5 mg tablet 20 mg PO BID 90 Days #90 01/09/18 04/29/19 History aspirin 81 mg tablet,delayed 81 mg PO DAILY 07/29/18 04/29/19 History release atorvastatin 20 mg tablet 20 mg PO HS 12/09/18 04/30/19 History metoprolol tartrate 25 mg tablet 25 mg PO BID #180 tab 02/10/19 04/29/19 History Vitamin B Complex [B Complete] 1 each PO DAILY 04/29/19 04/29/19 History Fexofenadine HCl 180 mg PO DAILYP PRN 04/30/19 04/30/19 History cloNIDine HCL [cloNIDine 0.1mg 0.1 mg PO DAILY 04/30/19 04/30/19 History Tablet] Allergies Allergy/AdvReac Type Severity Reaction Status Date / Time NSAIDS (Non-Steroidal Allergy Unknown Kidneys Verified 04/28/19 09:21 Anti-Inflamma Review of Systems - Review of Systems Review of systems:: pertinent systems reviewed and negative unless documented below - *Neurologic Reports behavioral changes, Reports confusion, Reports unsteadiness, Reports headache(s) Exam Vital signs and Labs for Last 24 Hours: Temp Pulse Resp BP Pulse Ox 97.9 F 51 L 18 168/80 H 99 04/30/19 11:18 04/30/19 11:18 04/30/19 11:18 04/30/19 11:18 04/30/19 11:18 Laboratory Results - last 24 hr 04/29/19 16:35: POC Glucose 92 04/29/19 16:50: WBC 6.7, RBC 4.23 L, Hgb 12.0 L, Hct 39.5 L, MCV 93.3, MCH 28.4, MCHC 30.4 L, RDW 14.6, Plt Count 197, MPV 7.9, Neut % (Auto) 71.9, Lymph % (Auto) 19.1, [place] % (Auto) 6.9, Eos % (Auto) 1.8, Baso % (Auto) 0.4, Neut # (Auto) 4.8, Lymph # (Auto) 1.3, [place] # (Auto) 0.5, Eos # (Auto) 0.1, Baso # (Auto) 0.0 04/29/19 16:50: Sodium 143, Potassium 3.9, Chloride 105, Carbon Dioxide 29, Anion Gap 12.9, BUN 24 H, Creatinine 1.55 H, Estimated Creat Clear 39, Estimated GFR 44 L, Est GFR ( Amer) 53 L, Glucose 96 D, Calcium 8.6, Total Bilirubin 0.4, AST 31 D, ALT 26, Alkaline Phosphatase 93, Troponin I < 0.02, Total Protein 7.5, Albumin 3.7, Globulin 3.8 H, Albumin/Globulin Ratio 1.0 L 04/29/19 16:50: Lactate 1.2 04/29/19 19:23: Troponin I < 0.02 04/29/19 22:24: Troponin I < 0.02 04/29/19 23:26: Troponin I < 0.02 04/30/19 03:39: POC Glucose 92 04/30/19 06:20: Troponin I < 0.02 04/30/19 06:20: Sodium 144, Potassium 3.9, Chloride 109 H, Carbon Dioxide 27, Anion Gap 11.9, BUN 22 H, Creatinine 1.21 D, Estimated Creat Clear 50, Estimate d GFR 58 L, Est GFR ( Amer) 71 D, Glucose 94, Calcium 8.2 L 04/30/19 06:32: WBC 4.6 L D, RBC 3.54 L, Hgb 10.0 L D, Hct 32.5 L, MCV 91.7, MCH 28.3, MCHC 30.9 L, RDW 14.6, Plt Count 175, MPV 8.3, Neut % (Auto) 62.9, Lymph % (Auto) 26.3, [place] % (Auto) 8.2, Eos % (Auto) 2.4, Baso % (Auto) 0.3, Neut # (Auto) 2.9, Lymph # (Auto) 1.2, [place] # (Auto) 0.4, Eos # (Auto) 0.1, Baso # (Auto) 0.0 I & O for Last 24 hours: Intake & Output 04/27/19 04/28/19 04/29/19 04/30/19 23:59 23:59 23:59 23:59 Intake Total 1000 / 1000 0 / 0 Balance 1000 / 1000 0 / 0 Weight 149 lb 148 lb 15.991 oz Narrative: Telemetry strip is sinus rhythm with a rate of 68. - Constitutional no acute distress, average body habitus - *Routine HEENT Exam Head: Present: normocephalic, atraumatic Eye: Present: EOMI, PERRL ENT: Present: mucous membranes moist - *Routine Neck Exam Present: supple, full ROM, normal carotid upstroke. Absent: JVD, carotid bruit, lymphadenopathy - *Routine Respiratory Exam Present: CTA bilaterally - *Routine Cardiovascular Exam Present: RRR, Normal S1, Normal S2. Absent: murmur, gallop - *Routine Abdominal Exam Present: soft, normoactive bowel sounds. Absent: tenderness, distended - *Routine Extremities Exam Present: full ROM, pulses intact, normal capillary refill. Absent: cyanosis, clubbing, edema - *Routine Skin Exam Present: intact, warm. Absent: erythema, rash - *Routine Neurological Exam Present: alert, oriented X3, CN II-XII intact. Absent: sensory deficit, motor deficit - Routine Psychiatric Exam Present: normal affect, normal thought process - Detailed Eye Exam Eyelids: Left normal inspection Assessment and Plan (1) Right renal artery stenosis Current visit: Yes Status: Acute Category: Medical Code(s): I70.1 - Atherosclerosis of renal artery (2) Iliac artery stenosis, right Current visit: Yes Status: Acute Category: Medical Code(s): I77.1 - Stricture of artery (3) Hypertensive emergency Current visit: Yes Status: Acute Category: Medical Code(s): I16.1 - Hypertensive emergency (4) Chronic kidney disease Current visit: Yes Status: Acute Category: Medical Code(s): N18.9 - Chronic kidney disease, unspecified (5) Hypertensive encephalopathy Current visit: Yes Status: Acute Category: Medical Code(s): I67.4 - Hypertensive encephalopathy (6) Carotid artery stenosis Current visit: Yes Status: Chronic Category: Medical Code(s): I65.29 - Occlusion and stenosis of unspecified carotid artery (7) Head ache Current visit: No Status: Acute Qualifiers: Headache type: unspecified Headache chronicity pattern: acute headache Intractability: not intractable Qualified Code(s): R51 - Headache Category: Medical Code(s): R51 - Headache (8) Altered mental status Current visit: Yes Status: Resolved Qualifiers: Altered mental status type: unspecified Qualified Code(s): R41.82 - Altered mental status, unspecified Category: Medical Code(s): R41.82 - Altered mental status, unspecified - Assessment and plan all Dx Assessment and Plan for all problems:: Plan: 1. The patient was admitted to the hospital secondary to hypertensive encephalopathy, hypertensive emergency and right renal artery stenosis. The patient has been having high blood pressure and a headache since around April 28. The patient states that when his blood pressure is elevated he gets a severe headache. His daughter reports that during these episodes he does have confusion and is unable to answer any questions. His systolic blood pressure has been as high as 220 mmHg. His blood pressure is better but still on the high side. He had a CAT scan of his abdomen that shows a right renal artery occlusion. We will set the patient up for a renal angiogram in the morning due to the right renal artery stenosis. 2. The patient has been educated on the risks and benefits of proceeding with renal angiogram. The patient is verbalized understanding and is agreeable in proceeding with the procedure. 3. The patient will be n.p.o. after midnight in preparation for the renal angiogram. 4. The patient will get IV fluids and premedications prior to the renal angiogram. 5. His blood pressure is on the high side but improved. Will make further medication changes once his renal angiogram is completed. 6. His LDL goal is less than 100. 7. Patient does have a history of carotid artery stenosis and is status post left carotid endarterectomy. He sees a doctor at [place] for this but he does not recall the doctor's name. 8. The patient denies any chest pain or pressure. He denies any shortness of breath. He has ruled out for an [place]. 9. Further recommendations will be made pending the patient's response to treatment and the results of his renal angiogram tomorrow. Thank you for the opportunity to help participate in the care of this patient.
[2019-05-01 06:56] LABS: Calcium 7.9 mg/dL (8.5-10.1)
--- NOTE | 2019-05-01 07:24 | Progress Note ---
Internal Medicine - PN: Subj *Date: 05/01/19 *Time: 07:23 Interval history: Patient has no problems this morning. He denies significant headache. Review of his vitals show systolics in the 160s and 170s since yesterday afternoon. Patient is scheduled for cath based renal angiogram with possible stenting today for bilateral renal artery stenosis seen on CT angiogram Exam Vital signs and Labs for Last 24 Hours: Temp Pulse Resp BP Pulse Ox 98.0 F 54 L 18 175/68 H 96 05/01/19 04:00 05/01/19 04:00 05/01/19 04:00 05/01/19 04:00 05/01/19 04:00 Laboratory Results - last 24 hr 04/30/19 06:20: Sodium 144, Potassium 3.9, Chloride 109 H, Carbon Dioxide 27, Anion Gap 11.9, BUN 22 H, Creatinine 1.21 D, Estimated Creat Clear 50, Estimated GFR 58 L, Est GFR ( Amer) 71 D, Glucose 94, Calcium 8.2 L 04/30/19 06:32: WBC 4.6 L D, RBC 3.54 L, Hgb 10.0 L D, Hct 32.5 L, MCV 91.7, MCH 28.3, MCHC 30.9 L, RDW 14.6, Plt Count 175, MPV 8.3, Neut % (Auto) 62.9, Lymph % (Auto) 26.3, [place] % (Auto) 8.2, Eos % (Auto) 2.4, Baso % (Auto) 0.3, Neut # (Auto) 2.9, Lymph # (Auto) 1.2, [place] # (Auto) 0.4, Eos # (Auto) 0.1, Baso # (Auto) 0.0 04/30/19 16:06: POC Glucose 114 H 04/30/19 20:04: POC Glucose 102 05/01/19 03:41: POC Glucose 152 H 05/01/19 06:25: Sodium 143, Potassium 4.0, Chloride 110 H, Carbon Dioxide 27, Anion Gap 10.0, BUN 19 H, Creatinine 1.12, Estimated Creat Clear 54, Estimated GFR 64, Est GFR ( Amer) 77, Glucose 123 H, Calcium 7.9 L I & O for Last 24 hours: Intake & Output 04/28/19 04/29/19 04/30/19 05/01/19 11:59 11:59 11:59 11:59 Intake Total 999 / 999 2325 / 2325 Balance 1000 / 999 2325 / 2325 Weight 148 lb 15.991 oz 148 lb 15.991 oz Narrative: Patient is up and walking about the room. He is just finished taking a shower. Lungs are clear. Heart has a regular rate and rhythm. Extremities have no edema Assessment and Plan (1) Bilateral renal artery stenosis Current visit: Yes Status: Acute Category: Medical Code(s): I70.1 - Athero sclerosis of renal artery (2) Iliac artery stenosis, right Current visit: Yes Status: Acute Category: Medical Code(s): I77.1 - Stricture of artery (3) Hypertensive emergency Current visit: Yes Status: Acute Category: Medical Code(s): I16.1 - Hypertensive emergency (4) Chronic kidney disease Current visit: Yes Status: Acute Category: Medical Code(s): N18.9 - Chronic kidney disease, unspecified (5) Hypertensive encephalopathy Current visit: Yes Status: Acute Category: Medical Code(s): I67.4 - Hypertensive encephalopathy (6) Carotid artery stenosis Current visit: Yes Status: Chronic Category: Medical Code(s): I65.29 - Occlusion and stenosis of unspecified carotid artery (7) Head ache Current visit: No Status: Acute Qualifiers: Headache type: unspecified Headache chronicity pattern: acute headache Intractability: not intractable Qualified Code(s): R51 - Headache Category: Medical Code(s): R51 - Headache (8) Altered mental status Current visit: Yes Status: Resolved Qualifiers: Altered mental status type: unspecified Qualified Code(s): R41.82 - Altered mental status, unspecified Category: Medical Code(s): R41.82 - Altered mental status, unspecified - Assessment and plan all Dx Assessment and Plan for all problems:: Patient will undergo renal angiogram in the [facility] with possible stenting. Further medical decision making to occur after procedure
--- NOTE | 2019-05-01 09:03 | Progress Note ---
Subjective Date: 05/01/19 Time: 09:00 Principal diagnosis: HTN encephalopathy Interval history: 78-year-old white male ambulating in room in no acute distress. Denies any chest pain, pressure or tightness. Daughter is in the room and relates no further episodes of confusion overnight. Questions regarding the procedure answered. Patient is agreeable to proceed. Exam Vital signs and Labs for Last 24 Hours: Temp Pulse Resp BP Pulse Ox 97.9 F 59 L 19 150/59 H 98 05/01/19 08:00 05/01/19 08:00 05/01/19 08:00 05/01/19 08:21 05/01/19 08:00 Laboratory Results - last 24 hr 04/30/19 16:06: POC Glucose 114 H 04/30/19 20:04: POC Glucose 102 05/01/19 03:41: POC Glucose 152 H 05/01/19 06:25: Sodium 143, Potassium 4.0, Chloride 110 H, Carbon Dioxide 27, Anion Gap 10.0, BUN 19 H, Creatinine 1.12, Estimated Creat Clear 54, Estimated GFR 64, Est GFR ( Amer) 77, Glucose 123 H, Calcium 7.9 L I & O for Last 24 hours: Intake & Output 04/28/19 04/29/19 04/30/19 05/01/19 11:59 11:59 11:59 11:59 Intake Total 1000 / 1000 2325 / 2325 Balance 1000 / 1000 2325 / 2325 Weight 148 lb 15.991 oz 148 lb 15.991 oz - *Routine Respiratory Exam Present: CTA bilaterally. Absent: accessory muscle use, rales, rhonchi, wheezes - *Routine Cardiovascular Exam Present: RRR. Absent: murmur, gallop, rubs - *Routine Abdominal Exam Present: soft. Absent: tenderness, distended, guarding - *Routine Extremities Exam Absent: edema, calf tenderness - *Routine Neurological Exam Present: alert, oriented X3, moving all extremities Progress Note: A&P (1) Bilateral renal artery stenosis Status: Acute Current Visit: Yes (2) Iliac artery stenosis, right Status: Acute Current Visit: Yes (3) Hypertensive emergency Status: Acute Current Visit: Yes (4) Chronic kidney disease Status: Acute Current Visit: Yes (5) Hypertensive encephalopathy Status: Acute Current Visit: Yes (6) Carotid artery stenosis Status: Chronic Current Visit: Yes (7) Head ache Status: Acute Current Visit: No (8) Altered mental status Status: Resolved Current Visit: Yes Assessment and Plan for All Diagnoses:: 1. Hypertensive emergency with encephalopathy. Improved with with medical therapy. 2. Bilateral renal artery stenosis with plans for renal angiogram with or without stenting today. 3. Recent history of left carotid stenting 4. Further recommendations pending above results. 5. Consider observing patient overnight due to history of significant blood pressure swings after interventional procedures in the past.
--- OUTSIDE RECORDS SUMMARY | 2019-05-01 10:51 | External Medical Summary | Continuity of Care Document ---
:1940 Author Organization [facility] Address [address] [place] [address] Phone Care Team Providers Name Role Phone Ahsan Attending Provider Kushal Ramos Primary Care Provider Kassandra Attending Provider Husam Attending Provider Rashid Louis Attending Provider Allergies, Adverse Reactions, Alerts Allergen Type Severity Reaction Last Updated Verified Status NSAIDS Allergy Unknown Kidneys Yes Active (Non-Steroida l Anti-Inflamma Medications Medication Status Dose Units Route Sig Qty Days Start End Instruct ions Date Date Atorvastatin Active 20 MG Oral At November bedtime , nightly 2018 8:04am Metoprolol Active 25 MG Oral Twice a 180 January 8:12am Glimepiride Active 4 MG Oral Daily August 14, 2017 3:52pm Omeprazole Active 40 MG Oral At July bedtime ly 2017 3:52pm Levothyroxine Active 88 MCG Oral Daily July 3:52pm Clopidogrel Active 75 MG Oral At July Bisulf bedtime ly 2017 3:53pm Krill Oil Active 1 CAP Oral Daily August 14, 2017 3:53pm Mecobalamin Active 1000 MCG Sublingua Daily July 3:54pm Cholecalciferol Active 4000 UNIT Oral Daily October 31 (Vitamin D3) 2017 8:26am Lisinopril Active 20 MG Oral Twice a December 8:08am Aspirin Active 81 MG Oral Daily July 29, 2018 8:49am Vitamin B Active 1 EACH Oral Daily April 10:13pm Clonidine Hcl Active 0.1 MG Oral Daily April 30, 2019 12:04pm Fexofenadine Active 180 MG Oral Daily April needed 12:04pm Problems Active Problems Medical Problem Onset Date Status Nail dystrophy Active Carotid artery stenosis Active Hypertensive emergency Active Bilateral renal artery stenosis Active TIA (transient ischemic attack) Active Hypertensive encephalopathy Active Head ache Active Keratosis Active Chronic kidney disease Active Onychocryptosis Active Right renal artery stenosis Active 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, right Active Hypertension Active Inactive/Resolved Problems Medical Problem Onset Date Status Altered mental status Resolved Procedures Procedure Date Performed Status CT head/brain wo con April 29, 2019 completed XR chest 2V April 29, 2019 completed ECG initial Besson April 29, [address] abdomen pelvis w con April 29, [address] angio abdomen April 30, 2019 completed Blood Culture April 29, 2019 active Cardiac Cath (Not Applicable) May 01, 2019 10:45am act dirk CT head/brain wo con April 28, [address] sinus wo con April 28, 2019 completed XR hip RT 2-3V w/pelvis April 28, 2019 completed Relevant Diagnostic Tests and/or Laboratory Data Laboratory Results Test Date/Time Result Interpretation Reference Result Comment Performing Range Site White Blood March 7.7 K/mm3 4.8-10.8 [facility], [address] [place] [address] E Count 2018 Rickie [place] [address] 8:34am White Blood Lionel 7.6 K/mm3 4.8-10.8 [facility], [address] [place] [address] 36 E Count 2018 Rick[place] 06098 9:14pm White Blood Lionel 4.6 K/mm3 4.8-10.8 Delta: 6.7 on [facility], [address] [place] [address] 36 E Count [id number]/29/[id number] Maureen GAS[place] 54242 6:32am Red Blood November 3.99 M/mm3 4.60-6.20 [facility], [address] [place] [address] 36 E Count 2018 Rick[place] 90148 8:34am Red Blood Lionel 4.08 M/mm3 4.60-6.20 [facility], [address] [place] [address] E Count 2018 Rick[place] 94371 9:14pm Red Blood Lionel 3.54 M/mm3 4.60-6.20 [facility], [address] [place] [address] 36 E Count 2018 Rick[place] 88124 6:32am Hemoglobin March 11.6 g/dL 14.1-18.0 [facility], [address] [place] [address] 36 E 2018 Rick[place] 82414 8:34am Hemoglobin April 11.5 g/dL 14.1-18.0 [facility], [address] [place] [address] 36 E 2018 [place] 49649 9:14pm Hemoglobin Lionel 10.0 g/dL 14.1-18.0 Delta: 12.0 on [facility], [address] [place] [address] 36 E [id number]/29/19-1649 Maureen GASCA 80777 6:32am Hematocrit March 37.0 % 42.0-52.0 [facility], [address] [place] [address] 36 E 2018 Rickie G[place] 14532 8:34am Hematocrit April 36.8 % 42.0-52.0 [facility], [address] [place] [address] 36 E 2018 Rickie [place] 86931 9:14pm Hematocrit Lionel 32.5 % 42.0-52.0 [facility], [address] [place] [address] 36 E 2018 Rick[place] 10486 6:32am Mean November 92.8 fl 80-94 [facility], [address] [place] [address] E Corpuscular 2018 Thu GAS[place] 45938 Volume 8:34am Mean April 90.2 fl 80-94 [facility], [address] [place] [address] E Corpuscular 2018 Dustin GAS[place] 69613 Volume 9:14pm Mean April 91.7 fl 80- [facility], [address] [place] [address] E Corpuscular 2018 Dustin GAS[place] 32799 Volume 6:32am Mean March 28.9 pg 27.0-31.2 [facility], [address] [place] [address] E Corpuscular 2018 Thu GASCA 07237 Hemoglobin 8:34am Mean April 28.3 pg 27.0-31.2 [facility], [address] [place] [address] E Corpuscular 2018 Dustin GAS[place] 98033 Hemoglobin 9:14pm Mean April 28.3 pg 27.0-31.2 [facility], [address] [place] [address] E Corpuscular 2018 Dustin GAS[place] 46082 Hemoglobin 6:32am Mean March 31.2 g/dL 31.8-35.4 [facility], [address] [place] [address] E Corpuscular 2018 Thu GAS[place] 51653 Hemoglobin 8:34am Concent Mean April 31.4 g/dL 31.8-35.4 [facility], [address] [place] [address] E Corpuscular 2018 Dustin GAS[place] 21784 Hemoglobin 9:14pm Concent Mean April 30.9 g/dL 31.8-35.4 [facility], [address] [place] [address] E Corpuscular 2018 Dustin GAS[place] 40151 Hemoglobin 6:32am Concent Red Cell March 14.5 % 11.5-17.5 [facility], [address] [place] [address] E Distribution 2018 Maureen GASCA 50781 Width 8:34am Red Cell April 14.6 % 11.5-17.5 [facility], [address] [place] [address] E Distribution 2018 Thu GASCA 03240 Width 9:14pm Red Cell Lionel 14.6 % 11.5-17.5 [facility], [address] [place] [address] 36 E Distribution 2018 Thu Burroughs31 Width 6:32am Platelet November 215 K/mm3 142-424 [facility], [address] [place] [address] 36 E Count 2018 Rickie Burroughs31 8:34am Platelet Lionel 194 K/mm3 142-424 [facility], [address] [place] [address] 36 E Count 2018 Rickie Burroughs31 9:14pm Platelet Lionel 175 K/mm3 142-424 [facility], [address] [place] [address] 36 E Count 2018 Rickie Burroughs31 6:32am Mean Platelet March 8.2 fl 7.4-10.4 [facility], [address] [place] [address] E Volume 2018 Rickie Burroughs31 8:34am Mean Platelet Lionel 8.4 fl 7.4-10.4 [facility], [address] [place] [address] E Volume 2018 Rickie Burroughs31 9:14pm Mean Platelet Lionel 8.3 fl 7.4-10.4 [facility], [address] [place] [address] 36 E Volume 2018 Rickie Burroughs31 6:32am Neutrophils November 66.5 % 37.0-80.0 [place] [address] E (%) (Auto) 2018 Dustin Burroughs31 8:34am Neutrophils Lionel 78.0 % 37.0-80.[address] 36 E (%) (Auto) 2018 Rickie Burroughs31 9:14pm Neutrophils Lionel 62.9 % 37.0-80.[address] 36 E (%) (Auto) 2018 Rickie Burroughs31 6:32am Lymphocytes November 23.4 % 10-50 [place] [address] E (%) (Auto) 2018 Dustin Burroughs31 8:34am Lymphocytes Lionel 14.4 % [address] [place] [address] E (%) (Auto) 2018 Rickie GAS[place] 61503 9:14pm Lymphocytes Lionel 26.3 % 10-50 [facility], [address] [place] [address] 36 E (%) (Auto) 2018 Rickie [place] 54060 6:32am Monocytes (%) March 6.9 % 1.7-9.3 [facility], [address] [place] [address] E (Auto) 2018 Rickie GAS[place] 31200 8:34am Monocytes (%) April 6.6 % 1.7-9.3 [facility], [address] [place] [address] E (Auto) 2018 Rickie Burroughs31 9:14pm Monocytes (%) April 8.2 % 1.7-9.3 [facility], [address] [place] [address] E (Auto) 2018 Rickie Burroughs31 6:32am Eosinophils November 2.7 % 0.1-12.0 [place] [address] E (%) (Auto) 2018 Dustin Burroughs31 8:34am Eosinophils Lionel 0.7 % 0.1-12.0 [place] [address] E (%) (Auto) 2018 Rickie GAS[place] 06574 9:14pm Eosinophils Lionel 2.4 % 0.1-12.0 [place] [address] E (%) (Auto) 2018 Rickie Burroughs31 6:32am Basophils (%) March 0.4 % 0.1-2.0 [place] [address] E (Auto) 2018 Rickie Burroughs31 8:34am Basophils (%) Lionel 0.2 % 0.1-2.0 [place] [address] E (Auto) 2018 Rickie Burroughs31 9:14pm Basophils (%) Lionel 0.3 % 0.1-2.0 [facility], [address] [place] [address] E (Auto) 2018 Rickie G[place] 90070 6:32am Neutrophils # March 5.1 K/mm3 1.8-7.8 [place] [address] E (Auto) 2018 Rickie GAS[place] 17022 8:34am Neutrophils # April 5.9 K/mm3 1.8-7.8 [place] on [facility], [address] [place] [address] 36 E (Auto) 2018 [place] [address] 9:14pm Neutrophils # Lionel 2.9 K/mm3 1.8-7.8 [place] on [facility], [address] [place] [address] 36 E (Auto) 2018 [place] [address] 6:32am Lymphocytes # November 1.8 K/mm3 0.7-4.5 [place] on [facility], [address] [place] [address] 36 E (Auto) 2018 [place] [address] 8:34am Lymphocytes # Lionel 1.1 K/mm3 0.7-4.5 [place] on [facility], [address] [place] [address] 36 E (Auto) 2018 [place] [address] 9:14pm Lymphocytes # Lionel 1.2 K/mm3 0.7-4.5 [place] on [facility], [address] [place] [address] E (Auto) 2018 [place] [address] 6:32am Monocytes # November 0.5 K/mm3 0.1-1.0 [facility], [address] [place] [address] 36 E (Auto) 2018 [place] [address] 8:34am Monocytes # Lionel 0.5 K/mm3 0.1-1.0 [facility], [address] [place] [address] 36 E (Auto) 2018 [place] [address] 9:14pm Monocytes # Lionel 0.4 K/mm3 0.1-1.0 [facility], [address] [place] [address] 36 E (Auto) 2018 Rickie [place] 74242 6:32am Eosinophils # November 0.2 K/mm3 0.0-0.4 [place] on [facility], [address] [place] [address] 36 E (Auto) 2018 [place] [address] 8:34am Eosinophils # Lionel 0.1 K/mm3 0.0-0.4 [place] on [facility], [address] [place] [address] 36 E (Auto) 2018 [place] [address] 9:14pm Eosinophils # Lionel 0.1 K/mm3 0.0-0.4 [facility], [address] [place] [address] 36 E (Auto) 2018 Rickie GAS[place] 17564 6:32am Basophils # November 0.0 K/mm3 0-0.2 [facility], [address] [place] [address] 36 E (Auto) 2018 Rickie [place] 56909 8:34am Basophils # Lionel 0.0 K/mm3 0-0.2 [facility], [address] [place] [address] 36 E (Auto) 2018 Rickie [place] 76464 9:14pm Basophils # Lionel 0.0 K/mm3 0-0.2 [facility], [address] [place] [address] 36 E (Auto) 2018 Rickie G[place] 41093 6:32am Erythrocyte Lionel 43 mm/hr 0-20 [facility], [address] [place] [address] 36 E Sedimentation 2018 Maureen GAS[place] 94580 Rate 9:14pm Urine Color November Yellow Yellow [facility], [address] [place] [address] 36 E 2018 Rickie [place] 38296 8:34am Urine Color Lionel Yellow Yellow [facility], [address] [place] [address] 36 E 2018 Rickie [place] 71566 10:47pm Urine November Clear Clear [facility], [address] [place] [address] 36 E Appearance 2018 Dustin GAS[place] 05437 8:34am Urine Lionel Clear Clear [facility], [address] [place] [address] 36 E Appearance 2018 Rickie GAS[place] 19965 10:47pm Urine pH November 5.5 5.0-8.5 [facility], [address] [place] [address] 36 E 2018 Rickie [place] 95454 8:34am Urine pH Lionel 6.0 5.0-8.5 [facility], [address] [place] [address] 36 E 2018 Rickie [place] 26989 10:47pm Urine November >= 1.030 1.005-1.03 [facility], [address] [place] [address] 36 E Specific 2018 0 Rickie G[place] 92809 [place] 8:34am Urine Lionel >= 1.030 1.005-1.03 [facility], [address] [place] [address] 36 E Specific 2018 0 Rickie G[place] 22564 [place] 10:47pm Urine Protein November 2+ Negative [facility], [address] [place] [address] 36 E 2018 Rickie [place] 40088 8:34am Urine Protein Lionel 3+ Negative [facility], [address] [place] [address] 36 E 2018 Rickie [place] 53891 10:47pm Urine Glucose November Negative Negative [facility], [address] [place] [address] 36 E (UA) 2018 Rickie [place] 06103 8:34am Urine Glucose Lionel Negative Negative [facility], [address] [place] [address] 36 E (UA) 2018 Rickie G[place] 30006 10:47pm Urine Ketones November Negative Negative [facility], [address] [place] [address] 36 E 2018 Rickie G[place] 71009 8:34am Urine Ketones Lionel Negative Negative [facility], [address] [place] [address] 36 E 2018 Rickie [place] 65211 10:47pm Urine Blood November Negative Negative [facility], [address] [place] [address] 36 E 2018 Rickie [place] 12173 8:34am Urine Blood Lionel Trace-i Negative [facility], [address] [place] [address] 36 E 2018 Rickie Burroughs31 10:47pm Urine Nitrate November Negative Negative [facility], [address] [place] [address] 36 E 2018 Rickie [place] 28218 8:34am Urine Nitrate Lionel Negative Negative [facility], [address] [place] [address] 36 E 2018 Rickie Burroughs31 10:47pm Urine November Negative Negative CONFIRM [facility], [address] [place] [address] 36 E Bilirubin 2018 BILIRUBIN Rickie GAS[place] 96298 8:34am RESULT WITH ICTOTEST:NEG Urine Lionel Negative Negative [facility], [address] [place] [address] 36 E Bilirubin 2018 Rickie [place] 44829 10:47pm Urine November 0.2 EU/dl [facility], [address] [place] [address] 36 E Urobilinogen 2018 Maureen GAS[place] 15932 8:34am Urine Lionel 0.2 EU/dl [facility], [address] [place] [address] 36 E Urobilinogen 2018 Thu GASCA 05465 10:47pm Urine November Negative Negative [facility], [address] [place] [address] 36 E Leukocyte 2018 Rickie GAS[place] 37667 Esterase 8:34am Urine Lionel Negative Negative [facility], [address] [place] [address] 36 E Leukocyte 2018 Rickie G[place] 48575 Esterase 10:47pm Urine RBC November 5-10 #/hpf [facility], [address] [place] [address] 36 E 2018 [place] [address] 8:34am Urine WBC March 3-5 #/hpf [facility], [address] [place] [address] 36 E 2018 [place] [address] 8:34am Urine WBC Lionel Occasional [facility], [address] [place] [address] 36 E 2018 #/[place] [address] 10:47pm Urine November 3-5 #/hpf [facility], [address] [place] [address] 36 E Squamous 2018 [place] [address] Epithelial 8:34am Cells Urine Lionel Occasional [facility], [address] [place] [address] E Squamous 2018 #/[place] [address] Epithelial 10:47pm Cells Urine November Trace /lpf NONE [facility], [address] [place] [address] E Bacteria 2018 [place] [address] 8:34am Urine Lionel Trace /lpf NONE [facility], [address] [place] [address] E Bacteria 2018 [place] [address] 10:47pm Urine Hyaline November Occasional [facility], [address] [place] [address] E Casts 2018 #/[place] [address] 8:34am Urine Hyaline Lionel Occasional [facility], [address] [place] [address] E Casts 2018 #/[place] [address] 10:47pm Urine Mucus November 1+ /lpf None [facility], [address] [place] [address] 36 E 2018 [place] [address] 8:34am Urine November 299 mg/dL 20-320 [facility], [address] [place] [address] 36 E Creatinine 2018 Dustin GAS[place] 56774 8:34am Urine Total November 175.5 mg/dL 0.0-11.9 [facility], [address] [place] [address] 36 E Protein 2018 [place] [address] 8:34am Troponin I April < 0.02 0.00-0.06 *ALERT* High [facility], [address] [place] [address] 36 E 2018 ng/ml levels of Rickie GASCA 85186 6:20am Biotin can falsely depress Troponin results.Many dietary supplements promoted for hair,skin, and nail benefits contain biotin levels up to 650 times the recommended daily intake of biotin. In additon to dietary supplements, Biotin is occasionally prescribed for medical conditions. Sodium Level March 147 mmol/L 136-145 [facility], [address] [place] [address] E 2018 Rickie GAS[place] 12411 8:34am Sodium Level Lionel 141 mmol/L 136-145 [facility], [address] [place] [address] E 2018 Rickie GAS[place] 99625 9:14pm Sodium Level Lionel 143 mmol/L 136-145 [facility], [address] [place] [address] E 2018 [place] [address] 6:25am Potassium March 4.0 mmoL/L 3.5-5.1 [facility], [address] [place] [address] E Level 2018 [place] [address] 8:34am Potassium Lionel 3.7 mmoL/L 3.5-5.1 [facility], [address] [place] [address] E Level 2018 [place] [address] 9:14pm Potassium Lionel 4.0 mmoL/L 3.5-5.1 [facility], [address] [place] [address] E Level 2018 [place] [address] 6:25am Chloride March 111 mmol/L 98-107 [facility], [address] [place] [address] E Level 2018 [place] 08268 8:34am Chloride April 104 mmol/L 98-107 [facility], [address] [place] [address] E Level 2018 [place] [address] 9:14pm Chloride April 110 mmol/L 98-[address] [place] [address], [address] [place] [address] E Level 2018 [place] 29104 6:25am Carbon March 29 mmol/L 21.0-32.0 [facility], [address] [place] [address] E Dioxide Level 2018 Elanaglen russellna [place] [address] 8:34am Carbon Lionel 27 mmol/L 21.0-32.0 [facility], [address] [place] [address] E Dioxide Level 2018 Elanajanette GASCA 93679 9:14pm Carbon Lionel 27 mmol/L 21.0-32.0 [facility], [address] [place] [address] E Dioxide Level 2018 Maureen perez [place] [address] 6:25am Anion Gap March 11.0 mEq/L 10-08 [facility], [address] [place] [address] 36 E 2018 [place] [address] 8:34am Anion Gap April 13.7 mEq/L 10-08 [facility], [address] [place] [address] 36 E 2018 [place] [address] 9:14pm Anion Gap April 10.0 mEq/L 10-08 [facility], [address] [place] [address] 36 E 2018 [place] [address] 6:25am Blood Urea March 16 mg/dL 12-11 [facility], [address] [place] [address] 36 E Nitrogen 2018 [place] [address] 8:34am Blood Urea April 23 mg/dL 12-11 [facility], [address] [place] [address] 36 E Nitrogen 2018 [place] [address] 9:14pm Blood Urea April 19 mg/dL 12-11 [facility], [address] [place] [address] 36 E Nitrogen 2018 [place] [address] 6:25am Creatinine March 1.16 mg/dL 0.70-1.30 [facility], [address] [place] [address] 36 E 2018 [place] [address] 8:34am Creatinine April 1.63 mg/dL 0.70-1.30 [facility], [address] [place] [address] 36 E 2018 [place] [address] 9:14pm Creatinine April 1.12 mg/dL 0.70-1.30 [facility], [address] [place] [address] 36 E 2018 [place] [address] 6:25am Estimated April 36 mL/min 0-300 [facility], [address] [place] [address] 36 E Creatinine 2018 [place] [address] Clearance 9:14pm Estimated Lionel 54 mL/min 0-300 [facility], [address] [place] [address] 36 E Creatinine 2018 [place] [address] Clearance 6:25am Estimated GFR March 74 ML/MIN >59 [facility], [address] [place] [address] 36 E ( 2018 [place] [address] Macanese) 8:34am Estimated GFR April 50 ML/MIN >59 [facility], [address] [place] [address] 36 E ( 2018 [place] [address] Macanese) 9:14pm Estimated GFR April 77 ML/MIN >59 [facility], [address] E ( 2018 [place] [address] Macanese) 6:25am Estimat March 61 ml/min >59 [facility], [address] [place] [address] 36 E Glomerular 2018 Dustin GAS[place] 82714 Filtration 8:34am Rate Estimat April 41 ml/min >59 [facility], [address] [place] [address] 36 E Glomerular 2018 Rickie GAS[place] 30923 Filtration 9:14pm Rate Estimat April 64 ml/min >59 [facility], [address] [place] [address] 36 E Glomerular 2018 Rickie G[place] 50464 Filtration 6:25am Rate Glucose Level March 120 mg/dL 74-106 [facility], [address] [place] [address] 36 E 2018 Rickie [place] 97688 8:34am Glucose Level Lionel 212 mg/dL 74-106 [facility], [address] [place] [address] 36 E 2018 Rickie [place] 59249 9:14pm Glucose Level Lionel 123 mg/dL 74-106 [facility], [address] [place] [address] 36 E 2018 Rick[place] 66006 6:25am Bedside Lionel 152 70-110 Point-of-C a Glucose 2018 re (RALS) 3:41am Lactate April 1.2 mmol/L 0.4-2.0 [facility], [address] [place] [address] 36 E 2018 Rick[place] 58468 4:50pm Calcium Level March 8.7 mg/dL 8.5-10.1 [facility], [address] [place] [address] 36 E 2018 Rickie G[place] 30238 8:34am Calcium Level Lionel 8.5 mg/dL 8.5-10.1 [facility], [address] [place] [address] 36 E 2018 Rickie [place] 10930 9:14pm Calcium Level Lionel 7.9 mg/dL 8.5-10.1 [facility], [address] [place] [address] 36 E 2018 Rickie [place] 16572 6:25am Phosphorus November 2.7 mg/dL 2.4-4.9 [facility], [address] [place] [address] 36 E Level 2018 Rickie GAS[place] 16458 8:34am Total Lionel 0.3 mg/dL 0.2-1.0 [facility], [address] [place] [address] 36 E Bilirubin 2018 Rickie G[place] 07919 9:14pm Total Lionel 0.4 mg/dL 0.2-1.0 [facility], [address] [place] [address] 36 E Bilirubin 2018 [place] [address] 4:50pm Aspartate April 23 U/L [facility], [address] [place] [address] 36 E Amino Transf 2018 [place] [address]697 (AST/SGOT) 9:14pm Aspartate April 31 U/L Delta: 23 on [facility], [address] [place] [address] E Amino Transf [id number]/28/19-2113 Elana stanley GAS[place] 68528 (AST/SGOT) 4:50pm Alanine April 24 U/L [facility], [address] [place] [address] E Aminotransfer 2018 Elanajanette chris [place] [address] ase 9:14pm (ALT/SGPT) Alanine April 26 U/L [facility], [address] [place] [address] E Aminotransfer 2018 Elanajanette GASCA 15708 ase 4:50pm (ALT/SGPT) C-Reactive Lionel 0.3 mg/dL 0.0-0.9 [facility], [address] [place] [address] 36 E Protein 2018 [place] [address] 9:14pm Total Protein Lionel 6.9 gm/dL 6.4-8.2 [facility], [address] [place] [address] 36 E 2018 [place] [address] 9:14pm Total Protein Lionel 7.5 gm/dL 6.4-8.2 [facility], [address] [place] [address] 36 E 2018 [place] [address] 4:50pm Albumin November 3.4 gm/dL 3.4-5.0 [facility], [address] [place] [address] 36 E 2018 [place] [address] 8:34am Albumin Lionel 3.4 gm/dL 3.4-5.0 [facility], [address] [place] [address] 36 E 2018 [place] [address] 9:14pm Albumin Lionel 3.7 gm/dL 3.4-5.0 [facility], [address] [place] [address] 36 E 2018 Rickie Sinha 4:50pm Globulin Lionel 3.5 gm/dl 1.3-3.2 [facility], [address] [place] [address] 36 E 2018 Rickie Sinha 9:14pm Globulin Lionel 3.8 gm/dl 1.3-3.2 [facility], [address] [place] [address] 36 E 2018 Rickie Sinha 4:50pm Albumin/Globu Lionel 1.0 1.1-1.8 [facility], [address] [place] [address] 36 E tacho Ratio 2018 Rickie Sinha 9:14pm Albumin/Globu Lionel 1.0 1.1-1.8 [facility], [address] [place] [address] 36 E tacho Ratio 2018 Rickie Sinha 4:50pm Alkaline Lionel 89 U/L 46-116 [facility], [address] [place] [address] 36 E Phosphatase 2018 Dustin Sinha 9:14pm Alkaline Lionel 93 U/L 46-116 [facility], [address] [place] [address] 36 E Phosphatase 2018 Dustin Sinha 4:50pm Ionized November 5.3 mg/dL [facility] Calcium 2018 Acct# 8:34am [id number] Parathyroid March 27 pg/mL Performed at: [facility] orp Hormone 2018 CB - [facility] Acct# (Intact) 8:34am [id number] [place], [place] [id number] Director: Sreedhar Cortez PhD, Phone: [phone] 25-Hydroxy November 47.3 ng/mL Vitamin D [facility] Vitamin D 2018 deficiency has Acct # Total 8:34am been defined by [id number] the [facility] and an Endocrine Society practice guideline as alevel of serum 25-OH vitamin D less than 20 ng/mL (1,2).The Endocrine Society went on to further define vitamin Dinsufficiency as a level between 21 and 29 ng/mL (2).1. IOM (Gladys of Medicine). 2010. Dietary reference intakes for calcium and D. [place]: The National Academies Press.2. Vini MF, Hipolito PERRY, Alma anderson MIJARES, et al. Evaluation, treatment, and prevention of vitamin D deficiency: an Endocrine Society clinical practice guideline. JCEM. 2010; 96(7):1911-30.P erformed at: [facility] [place] [id number] [place], [place] [id number] Director: Sreedhar Cortze PhD, Phone: [phone] Diagnostic Imaging Reports Report Dictated Date/Time Dictated By Status Radiology Report April 28, 2019 Juan Trent MD completed 9:47pm [place] [address] [address] XRay R eport Sig alba Patient: Nader Briggs MR#: [id number] : 1940 Acct:[id number] Age/Sex: 78 / M ADM Date: 9 Loc: ER Attending Dr: Ordering Physician: Wilfred Louis MD Date of Service: 04/28/19 Procedure(s): XR hip RT 2-3V w/pelvis Accession Number(s): [id number] cc: Juan Trent MD; Jared Ramos MD~ PROCEDURE: XR HIP RT 2-3V W/PELVIS CLINICAL INDICATION: Pain after fall COMPARISON: HIPCMRT XR hip RT 2-3V w/p jo-ann from 08/14/2017 FINDINGS: There has been a prior total right hip prosthesis. There is good alignment of the prosthesis. No acute fracture or dislocation is evident. Osteoarthritic changes are pr esent of the left hip and there are surgical clips at the symphys is pubis region. There is vascular calcification. IMPRESSION: Prior total hip prosthesis on the right with no acute finding Dictated by: Juan Trent MD 04/29/2019 04:55 Electronically signed by Juan Trent in [place] 04/29/2019 04:55 Radiology Report April 28, 2019 Juan Trent MD completed 9:32pm [address] [place] [address] [address] Scan Report Sig alba Patient: Nader Briggs MR#: [id number] : 1940 Acct:[id number] Age/Sex: 78 / M ADM Date: 9 Loc: ER Attending Dr: Ordering Physician: Wilfred Louis MD Date of Service: 04/28/19 Procedure(s): CT sinus wo con Accession Number(s): [id number] cc: Juan Trent MD; Wilfred Louis MD; Jared Ramos MD~ PROCEDURE: CT SINUS WO CON CLINICAL HISTORY: Frontal H/A Posttraumatic pain and pressure in fron destin area COMPARISON: No exams were available fo r comparison TECHNIQUE: Axial images obtained with sagittal and coronal reformats. All CT scans at the facility use one or more d ose reduction, viz: automated exposure control, ma/kV adjustment per patient size (including targeted exams where dose is matched to indication, i.e. head), or iterative reconstruction technique. FINDINGS: Motion artifact degrades fine detail an d could obscure a nondisplaced fracture. No displaced fractures are e vident. No sinus air-fluid level. Lobular soft tissue density not ed in the right sphenoid sinus anteriorly consistent with a retention cyst at 12 mm. Mild mucosal thickening of the ethmoid sinuses. The re is a small faint opacity lateral to the lateral orbital wall wit h an additional small subcutaneous opacity in the frontal sca lp area. These could be due to areas of calcification or foreign palmira dy. Mild soft tissue swelling is present in the right supraorbital re gion. Streak artifact is present from dental hardware. Osteoart hritic changes are present in the TMJs right greater than left. Dege nerative changes also noted in the cervical spine. IMPRESSION: 1. Motion artifact degrades fine detail and could obscure nondisplaced fracture. 2. No displaced fractures apparent. 3. Other nonacute findings as described above Dictated by: Juan Trent MD 04/29/2019 05:39 Electronically signed by Juan Trent in [place] 04/29/2019 05:39 Radiology Report April 28, 2019 Juan Trent MD completed 9:28pm [facility] [address] [place] [facility] [address] [place] [address] [place] Scan Report Sig alba Patient: Nader Briggs MR#: [id number] : 1940 Acct:[id number] Age/Sex: 78 / M ADM Date: 9 Loc: ER Attending Dr: Ordering Physician: Wilfred Louis MD Date of Service: 04/28/19 Procedure(s): CT head/brain wo con Accession Number(s): [id number] cc: Juan Trent MD; Wilfred Louis MD; Jared Ramos MD~ PROCEDURE: CT HEAD/BRAIN WO CON CLINICAL INDICATION: Frontal H/A Posttraumatic pain and swelling, blunt trauma with contusion or hematoma the COMPARISON: HEADWW CT head/brain wo/w con from 06/25/2018 TECHNIQUE: Axial images obtained. All CT scans at the facility use one or more dose reduction, viz: automa kp exposure control, ma/kV adjustment per patient size (including targeted exams where dose is matched to indication, i.e. head), or i terative reconstruction technique. FINDINGS: No midline shift, mass effect, intracra nial hemorrhage, hydrocephalus, or extra-axial fluid col lection is evident. There is generalized atrophy with hypoattenuatio n of the periventricular white matter consistent with microangiopathic changes. The calvarium has an unremarkable appearance. No mastoid eff usion. Lobular soft tissue density is present in the right sphenoi d sinus consistent with retention cyst at 13 mm. Scalp soft ti ssue swelling is present in the right supraorbital area. IMPRESSION: No acute intracranial finding Dictated by: Juan Trent MD 04/29/2019 05:42 Electronically signed by Juan Trent in [place] 04/29/2019 05:42 Radiology Report April 29, 2019 Juan Trent MD completed 4:13pm [facility] [address] [place] [facility] [address] [place] [address] [address] Scan Report Sig alba Patient: Nader Briggs MR#: [id number] : 1940 Acct:[id number] Age/Sex: 78 / M ADM Date: 9 Loc: ER Attending Dr: Ordering Physician: Tai Garrison MD Date of Service: 04/29/19 Procedure(s): CT head/brain wo con Accession Number(s): [id number] cc: Juan Trent MD; Tai Garrison MD; Jared Lacey MD~ PROCEDURE: CT HEAD/BRAIN WO CON CLINICAL INDICATION: R/O STROKE Frontal headache, fall with injury and pain COMPARISON: CT HEAD/BRAIN WO CON from 04/28/2019 TECHNIQUE: Axial images obtained. All CT scans at the facility use one or more dose reduction, viz: automa kp exposure control, ma/kV adjustment per patient size (including targeted exams where dose is matched to indication, i.e. head), or i terative reconstruction technique. FINDINGS: No midline shift, mass effect, intracra nial hemorrhage, hydrocephalus, or extra-axial fluid col lection is evident. There is generalized atrophy with hypoattenuatio n of the periventricular white matter consistent with microangiopathic changes. The calvarium has an unremarkable appearance. No mastoid eff usion. Retention cyst is present in the right aspect of the sphe noid sinus. No sinus air-fluid level. IMPRESSION: No acute intracranial finding Dictated by: Juan Trent MD 04/29/2019 16:55 Electronically signed by Juan Trent in [place] 04/29/2019 16:55 Radiology Report April 29, 2019 Juan Trent MD completed 4:28pm [place] [id number] [facility] [address] [place] [address] XRay R eport Sig alba Patient: Nader Briggs MR#: [id number] : 1940 Acct:[id number] Age/Sex: 78 / M ADM Date: 9 Loc: ER Attending Dr: Ordering Physician: Tai Garrison MD Date of Service: 04/29/19 Procedure(s): XR chest 2V Accession Number(s): [id number] cc: Juan Trent MD; Jared Ramos MD~ PROCEDURE: XR CHEST 2V CLINICAL HISTORY: R/O STROKE Posttraumatic pain with headache, confu pedrito COMPARISON: CXR CHEST(2 VIEWS-NOT PORT ABLE) from 08/08/2013 CXR CHEST(2 VIEWS-NOT PORTABLE) from 09/12/2015 CXR1VP XR chest portable from 9 FINDINGS: The cardiomediastinal silhouette and pu lmonary vascularity are within normal limits. Chronic changes are present. Nodular d ensity is noted in both lower lung zones and may be due to nipple sha dows. There is minimal fibrotic change in the left lung base. No lobar consolidation or collapse. There are degenerative penaloza es of the thoracic spine. No acute bony abnormalities. IMPRESSION: No acute findings. Dictated by: Juan Trent MD 04/29/2019 17:10 Electronically signed by Juan Trent in [place] 04/29/2019 17:10 Radiology Report April 29, 2019 Juan Trent MD completed 6:27pm [facility] [address] [place] [facility] [address] [place] [address] [place] Scan Report Sig alba Patient: Nader Briggs MR#: [id number] : 1940 Acct:[id number] Age/Sex: 78 / M ADM Date: 9 Loc: 2ND 218SD-[address]: Waldo Weiner MD Ordering Physician: Tai Garrison MD Date of Service: 04/29/19 Procedure(s): CT abdomen pelvis w con Accession Number(s): [id number] cc: Juan Trent MD; Tai Garrison MD; Jared Lacey MD~ PROCEDURE: CT ABDOMEN PELVIS W CON CLINICAL INDICATION: hypertension unco ntrolled Abdominal pain, generalized, COMPARISON: No exams were available fo r comparison TECHNIQUE: IV Contrast: 75ML OPTIRAY 3 50 Oral Contrast Axial images obtained with sagittal and coronal reformats. All CT scans at the facility use one or more d ose reduction, viz: automated exposure control, ma/kV adjustment per patient size (including targeted exams where dose is matched to indication, i.e. head), or iterative reconstruction technique. FINDINGS: LOWER THORAX: Calcified granulomas pres ent in the right lung base. There are mild atelectatic changes or f ibrosis in the lung bases. ABDOMEN & PELVIS: Coronary artery calci fications are noted. There is mild thickening of the pericardium sugg esting small pericardial effusion measuring up to 13 mm. Post cholecystectomy. There is mild di stention of the stomach with fluid. The spleen, adrenal glands, and pancreas have an unremarkable appearance. Atheromatous changes with calcification noted involving the aortoiliac vessels with severe calc ific plaque at the femoral arteries. There is calcific plaque at the ostium of the renal arteries. CT angiogram may provide fur ther evaluation in this patient with hypertension. No renal ma ss. No renal stones or perinephric fluid collection. No urete ral calculi. The no intestinal obstruction or free a ir. There is a reservoir or/balloon in the lower anterior pelvis with tube leading to the urethral area and right hemiscrotum. Prior total hip prosthesis on the right . Mild osteoarthritic changes of the left hip. Severe degenerative d isc disease L5-S1. There is some sclerosis of the left femoral head . Cannot exclude the possibility of avascular necrosis of th e left hip. MRI may be of further value. There is some minimal f lattening of the left femoral head. IMPRESSION: 1. No acute finding. 2. Small pericardial effusion. 3. Possible developing avascular necros is of left femoral head 4. Other nonacute findings as described above Dictated by: Juan Trent MD 04/30/2019 05:50 Electronically signed by Juan Trent in [place] 04/30/2019 05:50 Radiology Report April 30, 2019 Juan Trent MD completed 9:47am [facility] [address] [place] [facility] [address] [address] [address] Scan Report Sig alba Patient: Nader Briggs MR#: [id number] : 1940 Acct:[id number] Age/Sex: 78 / M ADM Date: 9 Loc: 2ND 218SD-[address]: Waldo Weiner MD Ordering Physician: Waldo Weiner MD Date of Service: 04/30/19 Procedure(s): CT angio abdomen Accession Number(s): [id number] cc: Juan Trent MD; Waldo Weiner MD; Jared Landrum MD~ Procedure: CT ANGIO ABDOMEN CLINICAL HISTORY: r/o renal artery antionette nosis, hypertensive emergency COMPARISON: No exams were available fo r comparison TECHNIQUE: IV Contrast: 100ml Optiray 350 Axial images obtained with sagittal and coronal reformats. All CT scans at the facility use one or more d ose reduction, viz: automated exposure control, ma/kV adjustment per patient size (including targeted exams where dose is matched to indication, i.e. head), or iterative reconstruction technique. FINDINGS: Angiographic findings: Atheromatous tita nges are present involving the aorta its branches iliac vessels and fe moral arteries. There is mild ectasia of the lower abdominal aorta at 2 cm. No stenosis evident. Mild stenosis of the ostium of the deanna ac artery of 25 percent. Superior mesenteric artery is widely pa tent with some minimal plaque calcific plaque at its ostium There is a single artery to the right k idney with mild calcific plaque at the ostium but no significant stenosis. There is mild soft and calcific plaque at the ostium of the left renal artery. This is causing approxim ately 60 percent stenosis of the main left renal artery. There is a small flap at this area contributing to the stenosis. The dist al aspect of the renal arteries have an unremarkable appearanc e. No renal artery aneurysm is evident. Moderate amount of calcific plaque invo lves the iliac arteries. There is the 60 percent stenosis involv ing the ostium of the right iliac artery from calcific plaque. There are coronary artery calcification s. IMPRESSION: 1. Moderate atheromatous changes involv e the aorta, iliac arteries, and aortic branches. 2. Soft and calcified plaque at the ost ium of the left renal artery with a small flap resulting in what is felt to be at least a 60 percent stenosis of the proximal aspect of the left renal artery. 3. 60 percent stenosis of the ostium of the right common iliac artery with segmental areas of narrowing invol ving the common and external iliac artery diffusely. Dictated by: Juan Trent MD 04/30/2019 10:11 Electronically signed by Juan Trent in [place] 04/30/2019 10:11 Advance Directives Advance Directive Response Recorded Date/Time Living Will Yes April 29, 2019 1 0:25pm Does the patient have an No February 10, 2019 2:13pm advanced directive on file? 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 renal artery stenosis Carotid artery stenosis Altered mental status Encounters Encounter Location(s) Arrival/Admit Date Discharge/Depart Date Provider(s) Departed [facility] Physician February 10, February 10, 2019 Mars Foreman Physician/[facility] 2018 7:57am 9:32am D[facility] Visit Registered [facility] Physician April 13, [facility] 2018 8:29am Departed [facility] Physician April 28, 2019 April 28, 2019 Cary Foreman , Physician/[facility] 9:09am 10:18am D[facility] Visit Departed [facility] Physician April 28, 2019 April 28, 2019 nu ll Emergency Group-Emergency 7:47pm 11:46pm Room Admitted [facility] Physician April 29, 2019 Waldo Weiner , Inpatient Group-Second 10:03pm MD Floor Registered [facility] Physician May 01, 2019 Wilfred Mike Inpatient Group- 10:35am MD Heriberto Recent Diagnosis Onset Date 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 Bilateral renal artery stenosis Chronic kidney disease Hypertension Hypertensive emergency Hypertensive encephalopathy Iliac artery stenosis, right Occlusion of common femoral artery Right renal artery stenosis Carotid artery stenosis Altered mental status Assessments See care plan goals Functional Status Observation Response Date Recorded Oral Care Ability Independent April 29, 2019 1 1:28pm Bathing Ability Independent April 29, 2019 1 1:28pm Eating (Feeding) Ability Independent April 29 019 11:28pm Toileting Ability Independent April 29, 2019 1 1:28pm Ambulation Ability Independent April 29, 2019 1 1:28pm Functional status ambulatory May 01, 2019 1 0:26am Functional status ambulatory February 10, 2019 2:13pm Oral Care Ability Independent February 10, 2019 2:13pm Bathing Ability Independent February 10, 2019 2:13pm Eating (Feeding) Ability Independent February 10, 2019 2:13pm Toileting Ability Independent February 10, 2019 2:13pm Ambulation Ability Independent February 10, 2019 2:13pm Goals Acute Goals Nursing Diagnosis: Knowledge Deficit D isease/Condition Goal(s): Education of di sease process Instruction(s): Follow provider p jennifer/instructions (See attached discharge education) Follow/up with primary care provider as instructed in discharge packet Ambulatory Goals Patient verbalizes understanding of dise ase process. Patient to follow plan of care. Education provided. Immunizations Immunization Event Date Not Given Dose Stogie Packer Lot Vac cine Reason Number Number Informatio n Statement (VIS) Deta il Fluzone January High-Dose 65YR+ 2015 Mental Status Observation Response Date Recorded Comprehension Ability No Impairment April 30, 2019 5:09pm Able to Read Yes April 29, 2019 1 1:28pm Able to Write Yes April 29, 2019 1 1:28pm Oral Expression Ability No Impairment April 29 11:28pm Medical Equipment No Medical Equipment Information available Insurance Providers Guarantor Nader Briggs Address [address] [facility] [address] Contact Info. Home Phone: Payer Policy Id Coverage Id Subscriber's Subscriber Effective Expi ration Name Id Date Date CRISTOPHER [id number] Nader [id number] Healthcare [employer] Options Medicare [id number] Nader [id number] April Briggs 2004 Self Pay Self N/A Plan of Treatment Follow up as ordered by primary care provider The patient was encouraged to apply lotion frequently to the affected areas. Patient states that he has had this for years and this does not itch or cause any acute pain. DM EDUCATION: A comprehensive diabetic foot examination was performed today. We discussed the systemic risks of diabetes and the importance of proper glucose control. We discussed the dangers of neuropathy or excessive pain. Patient was given a risk stratification of 2 and is recommend to follow up every 3 months. We discussed areas of high pressure on the patients foot as well as the risks and offloading solutions. We reviewed the proper foot care instructions such as: checking feet on a daily basis, keeping good hygiene, drying well between all toes, using lotion on dry skin, and wearing some form of foot protection at all times. We also discussed what to look for in areas of inflammation, ``hot spots, and ulcer formation. We did review patients current medications and discussed the importance of taking all medications as prescribed. We also discussed use of appropriate therapeutic footwear, inserts, and orthotics. Diabetic shoes are necessary in order to prevent rubbing and irritation on the deformities. This in return will help prevent ulceration formation, amputation, and infection. The patient currently is wearing diabetic shoes as well as powerstep orthotics inserts. Plan 1. Nails were debrided xs 10 utilizing manual debridement with a nail nipper. 2. A Dremel was then used to take down the thickness of all toenails. 3. Patient tolerated the procedure well. 4. Recommend the use of gunjan board to file nails down and keep thinner. 5. Follow up in 3 months or as needed. 6. Patient should call me sooner if any questions or concerns arise. Future Tests Future scheduled test information is unavailable Pending Tests Pending diagnostic test information is unavailable Future Visits Future appointment information is unavailable Referrals to Other Providers Reason for Referral Start Provider Provider Contact Provider Address Referral Date Information Admission to [facility] May [address] [place] [address] Future Procedures Future procedure information is unavailable Future Medications Future medication information is unavailable Patient Instructions How to Take Care of Your Feet If You Hav e Diabetes Oral Leukoplakia Seborrheic Keratosis Actinic Keratosis How to Take Care of Your Feet If You Hav e Diabetes Transient Ischemic Attack Delirium Essential Hypertension DI for Transient Ischemic Attack DI for High Blood Pressure Social History Assigned Sex Male Vital Signs Vital Reading Result Reference Range Collection Date/ Time Height 180.34 cm February 10, 2019 8:11am Weight 65.43 kg February 10, 2019 8:11am Heart Rate 75 /min 60-90 February 10, 2019 8:11am Respiratory rate 16 /min -February 10, 2019 8:11am Oxygen saturation by 99 % 95-100 January 252018 Pulse oximetry 8:11am BP Systolic 152 mm[Hg] 110-140 February 10, 2019 8:11am BP Diastolic 78 mm[Hg] 60-90 February 10, 2019 8:11am BMI (Body Mass Index) 20.1 kg/m2 February 10, 2019 8:11am Height 180.34 cm April 28 9:20am Weight 65.77 kg April 28 9:20am BP Systolic 203 mm[Hg] 110-140 April 28 9:20am BP Diastolic 92 mm[Hg] 60-April 28 9:20am BMI (Body Mass Index) 20.2 kg/m2 April 282018 9:20am Height 180.34 cm April 28 8:54pm Weight 65.77 kg April 28 8:54pm Body Temperature 98.4 [degF] 97.6-99.6 April 28, 2 019 11:45pm Heart Rate 70 /min -April 28 11:45pm Respiratory rate 20 /min 05-19April 28, 2 019 11:45pm Oxygen saturation by 97 % 95-100 April Pulse oximetry 8:54pm BP Systolic 155 mm[Hg] 110-140 April 28 11:45pm BP Diastolic 86 mm[Hg] 60-90 April 28 11:45pm BMI (Body Mass Index) 20.2 kg/m2 April 282018 8:54pm Height 180.34 cm May 01, 5:00am Weight 67.58 kg May 01, 5:00am Body Temperature 97.9 [degF] 97.6-99.6 May 01, 2 019 8:00am Heart Rate 50 /min 60-90 May 01, 8:00am Respiratory rate 19 /min 12-May 01, 2 019 8:00am Oxygen saturation by 98 % 95-100 April Pulse oximetry 8:00am BP Systolic 150 mm[Hg] 110-140 May 01, 8:21am BP Diastolic 59 mm[Hg] 60-90 May 01, 8:21am BMI (Body Mass Index) 20.7 kg/m2 May 012018 5:00am
--- NOTE | 2019-05-01 16:39 | Electrocardiograph Report ---
APPROVED REPORT Exam: Resting ECG HR:75 bpm ECG Measurements Heart Rate 75 AXES AL P 81 QRSd 74 QRS 50 QT 374 T69 QTc 417 <Conclusion> Atrial flutter Abnormal ECG Electronically signed by : Waldo Ramirez, 05/01/2019 16:39:27
--- NOTE | 2019-05-02 08:19 | Progress Note ---
Internal Medicine - PN: Subj *Date: 05/02/19 *Time: 08:17 Interval history: Patient reports no problems overnight. Nursing staff reports patient became more lucid. I still have to remind him today that there were no "blockages" found in his renal arteries during his procedure yesterday. Blood pressures have been variable with systolics as low as 120 but as high as 180. He denies any further episodes of headache. Exam Vital signs and Labs for Last 24 Hours: Temp Pulse Resp BP Pulse Ox 97.5 F L 65 16 181/73 H 97 05/02/19 04:00 05/02/19 04:00 05/02/19 04:00 05/02/19 04:00 05/02/19 04:00 Laboratory Results - last 24 hr 05/01/19 16:35: POC Glucose 97 05/02/19 07:07: POC Glucose 125 H I & O for Last 24 hours: Intake & Output 04/29/19 04/30/19 05/01/19 05/02/19 11:59 11:59 11:59 11:59 Intake Total 1000 / 1000 2325 / 2325 2583 / 2583 Balance 1000 / 1000 2325 / 2325 2583 / 2583 Weight 148 lb 15.991 oz 148 lb 15.991 oz 146 lb 6 oz Microbiology Reports for the Last 24 Hours: Microbiology 04/29/19 17:42 Blood Blood Culture - Preliminary NO GROWTH AFTER 48 HOURS 04/29/19 17:42 Blood Blood Culture - Preliminary NO GROWTH AFTER 48 HOURS Narrative: Patient is awake and alert. Lungs are clear. Heart has a regular rate and rhythm. Assessment and Plan (1) Bilateral renal artery stenosis Current visit: Yes Status: Ruled-out Category: Medical Code(s): I70.1 - Atherosclerosis of renal artery (2) Iliac artery stenosis, right Current visit: Yes Status: Acute Category: Medical Code(s): I77.1 - S tricture of artery (3) Hypertensive emergency Current visit: Yes Status: Acute Category: Medical Code(s): I16.1 - Hypertensive emergency (4) Chronic kidney disease Current visit: Yes Status: Acute Category: Medical Code(s): N18.9 - Chronic kidney disease, unspecified (5) Hypertensive encephalopathy Current visit: Yes Status: Acute Category: Medical Code(s): I67.4 - Hypertensive encephalopathy (6) Carotid artery stenosis Current visit: Yes Status: Chronic Category: Medical Code(s): I65.29 - Occlusion and stenosis of unspecified carotid artery (7) Head ache Current visit: No Status: Acute Qualifiers: Headache type: unspecified Headache chronicity pattern: acute headache Intractability: not intractable Qualified Code(s): R51 - Headache Category: Medical Code(s): R51 - Headache (8) Altered mental status Current visit: Yes Status: Resolved Qualifiers: Altered mental status type: unspecified Qualified Code(s): R41.82 - Altered mental status, unspecified Category: Medical Code(s): R41.82 - Altered mental status, unspecified - Assessment and plan all Dx Assessment and Plan for all problems:: Patient will will ambulate this morning and we will monitor his blood pressure after he receives his morning meds. He is possible discharge this afternoon
--- NOTE | 2019-05-02 08:23 | Discharge Summary ---
General - General Admission date:: 04/29/19 Discharge date: 05/02/19 HPI HPI: 78-year-old male with history of hypertension, vascular disease with prior carotid artery stenting, diabetes, chronic kidney disease presented to the emergency department with his daughter over rising blood pressure with associated confusion and headache. The patient had been to the ER the previous day (April 28) for elevated blood pressure. He had followed up in the office on April 29 and was given a PRN clonidine as his blood pressure during an office evaluation was relatively normal with a systolic of 140. As the day progressed patient's blood pressure lo and he developed a headache. His daughter then noticed he seemed confused and could not answer questions appropriately. My office was contacted and instructed the daughter to bring the patient back to the emergency department. Patient systolics were as high as 220. Work-up was performed and there was no evidence of acute stroke. Patient's blood pressure was treated and he was admitted for further evaluation and observation. Patient underwent a CT of the abdomen and pelvis which is shown questionable ostial occlusion of 1 of the renal arteries. Daughter is unaware of any prior renal angiogram. His current antihypertensive regimen is metoprolol tartrate 25 mg twice daily and lisinopril 20 mg twice daily. 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 Cardiology service was consulted for renal angiogram. On May 01 patient underwent renal angiogram which revealed less significant stenosis than originally believed. Patient did not require any renal artery stents. Adjustments were made to antihypertensive including the addition of hydrochlorothiazide 25 mg daily and switching metoprolol to carvedilol. Patient was monitored overnight. After the procedure he did exhibit some confusion but this improved and was not felt to be attributed to hypertension. On the morning of May 02 patient was ambulating without difficulty. There were no signs of mental status changes. Blood pressure continued to be above goal. As patient was asymptomatic he was discharged home. He will follow-up in my office on May 05 at 9 AM Objective Vital signs: Temp Pulse Resp BP Pulse Ox 97.5 F L 65 16 181/73 H 97 05/02/19 04:00 05/02/19 04:00 05/02/19 04:00 05/02/19 04:00 05/02/19 04:00 Results Labs on day of discharge: Labs from last 24 hours 05/02/19 05/01/19 07:07 16:35 POC Glucose 125 H 97 Preliminary micro results at discharge 04/29/19 17:42 Blood Culture - Preliminary Blood NO GROWTH AFTER 48 HOURS 04/29/19 17:42 Blood Culture - Preliminary Blood NO GROWTH AFTER 48 HOURS DS: Diagnosis - Discharge Diagnosis (1) Hypertensive emergency Status: Acute (2) Bilateral renal artery stenosis Status: Ruled-out (3) Iliac artery stenosis, right Status: Acute (4) Chronic kidney disease Status: Acute (5) Hypertensive encephalopathy Status: Acute (6) Carotid artery stenosis Status: Chronic (7) Head ache Status: Acute (8) Altered mental status Status: Resolved Discharge Plan - Patient Discharge Instructions ACTIVITY: Continue current activity DIET: continue same diet Patient Instructions: Transient Ischemic Attack, Delirium, Essential Hypertension, DI for Transient Ischemic Attack, DI for High Blood Pressure - Follow up Plan Follow up with: Waldo Weiner MD [Staff Physician] - 05/05/19 9:00 am Disposition: Home, Self-Assisted Medications: Home Medications Medication Instructions Recorded Confirmed Type clopidogrel 75 mg tablet 75 mg PO HS 08/14/17 04/30/19 History glimepiride 2 mg tablet 4 mg PO DAILY 08/14/17 04/30/19 History krill oil 500 mg capsule 1 cap PO DAILY 08/14/17 04/30/19 History levothyroxine 88 mcg capsule 88 mcg PO DAILY 08/14/17 04/30/19 History mecobalamin (vitamin B12) 1,000 1,000 mcg SUBLINGUAL DAILY 08/14/17 04/30/19 History mcg disintegrating tablet,sublingual omeprazole 40 mg capsule,delayed 40 mg PO HS 08/14/17 04/30/19 History release cholecalciferol (vitamin D3) 50 4,000 unit PO DAILY 10/31/17 04/30/19 History mcg (2,000 unit) capsule lisinopril 5 mg tablet 20 mg PO BID 90 Days #90 01/09/18 04/29/19 History aspirin 81 mg tablet,delayed 81 mg PO DAILY 07/29/18 04/29/19 History release atorvastatin 20 mg tablet 20 mg PO HS 12/09/18 04/30/19 History metoprolol tartrate 25 mg tablet 25 mg PO BID #180 tab 02/10/19 04/29/19 History Vitamin B Complex [B Complete] 1 each PO DAILY 04/29/19 04/29/19 History Fexofenadine HCl 180 mg PO DAILYP PRN 04/30/19 04/30/19 History cloNIDine HCL [cloNIDine 0.1mg 0.1 mg PO DAILY 04/30/19 04/30/19 History Tablet] carvediloL [Coreg 25mg Tablet] 25 mg PO BID #60 tab 05/02/19 Rx hydroCHLOROthiazide [HCTZ 25mg 25 mg PO DAILY #30 tab 05/02/19 Rx tab] Prescriptions/Medication Reconciliation: New hydroCHLOROthiazide [HCTZ 25mg tab] 25 mg PO DAILY #30 tab carvediloL [Coreg 25mg Tablet] 25 mg PO BID #60 tab Continued glimepiride 2 mg tablet 4 mg PO DAILY omeprazole 40 mg capsule,delayed release 40 mg PO HS levothyroxine 88 mcg capsule 88 mcg PO DAILY clopidogrel 75 mg tablet 75 mg PO HS mecobalamin (vitamin B12) 1,000 mcg disintegrating tablet,sublingual 1,000 mc g SUBLINGUAL DAILY cholecalciferol (vitamin D3) 50 mcg (2,000 unit) capsule 4,000 unit PO DAILY aspirin 81 mg tablet,delayed release 81 mg PO DAILY krill oil 500 mg capsule 1 cap PO DAILY lisinopril 5 mg tablet 20 mg PO BID 90 Days #90 atorvastatin 20 mg tablet 20 mg PO HS Vitamin B Complex [B Complete] 1 each PO DAILY Fexofenadine HCl 180 mg PO DAILYP PRN PRN Reason: ALLERGIES Discontinued metoprolol tartrate 25 mg tablet 25 mg PO BID #180 tab cloNIDine HCL [cloNIDine 0.1mg Tablet] 0.1 mg PO DAILY - Problem Reconciliation Problems Reviewed?: Yes
== END 2019-05-02 12:40 | disposition home or self-care (01) ==
LOC: ER 15:51 → 2ND 20:57 → INTOOBSV 22:03
PROVIDERS: ADMIT Emergency Medicine; ATTEND Family Medicine
CPT/HCPCS: 36252; 36415; 70450; 70486; 71020; 71046; 73502; 74175; 74177; 80048; 80053; 81001; 82962; 83605; 84484; 85025; 85651; 86140; 87040; 93005; 96365; 96375; 99152; 99284; C1725; C1769; G0378; J2405; Q9967

== ENCOUNTER → 2019-05-11 11:22 | Outpatient (CLI) | payer MEDICARE, SELFPAY ==
[2019-05-11 12:53] LABS: Anion Gap 14.6 mEq/L (5-15); Blood Urea Nitrogen 25 mg/dL (7-18); Calcium 8.7 mg/dL (8.5-10.1); Carbon Dioxide 27 mmol/L (21.0-32.0); Chloride 108 mmol/L (98-107); Creatinine,Serum 1.42 mg/dL (0.70-1.30); Estimated Glomerular Filt Rate 48 ml/min (>60); GFR (African American) 58 ML/MIN (>60); Glucose 79 mg/dL (74-106); Potassium 4.6 mmoL/L (3.5-5.1); Sodium 145 mmol/L (136-145)
== END ==
PROVIDERS: Visit Provider Physician Assistant
DX: I10 Essential (primary) hypertension (principal)
CPT/HCPCS: 36415; 80048

== ENCOUNTER → 2019-06-10 08:52 | Outpatient (CLI) | payer MEDICARE, SELFPAY ==
--- NOTE | 2019-06-10 08:57 | US_ITS ---
APPROVED REPORT Exam Type: Ankle to Brachial Index Technology Solutions Architect: RT Donovan(R) Indications Claudication: Bilaterally Risk Factors Hyperlipidemia TIA/CVA History Diabetes Pressures/Indices Right Indices Left Indices Brachial 174.00 mmHg Brachial 161.00 mmHg Low Thigh 171.00 mmHg 0.98 Low Thigh 171.00 mmHg 0.98 Calf 168.00 mmHg 0.97 Calf 0.00 mmHg 0.00 Ankle(PT) 186.00 mmHg 1.07 Ankle(PT) 178.00 mmHg 1.02 Ankle(DP) 234.00 mmHg 1.34 Ankle(DP) 214.00 mmHg 1.23 Digit 100.00 mmHg 0.57 Digit 109.00 mmHg 0.63 Findings RT DIONE=1.1 LT DIONE=1.0 RT TBI=0.6 LT TBI=0.6 Diminished pulses on right Abnormal waveform on distal right Conclusion Normal DIONE's bilaterally Diminished pulses on right Abnormal waveform on distal right Electronically signed by : Juan Trent MD 06/10/2019 10:02:23
== END ==
PROVIDERS: PCP Family Medicine; Visit Provider Family Medicine
DX: I74.5 Embolism and thrombosis of iliac artery (principal); I73.9 Peripheral vascular disease, unspecified
CPT/HCPCS: 93923

== ENCOUNTER → 2019-10-12 10:09 | Outpatient (CLI) | payer MEDICARE, SELFPAY ==
[2019-10-12 11:03] LABS: Basophils % 0.3 % (0.1-2.0); Eosinophils # 0.2 K/mm3 (0.0-0.4); Eosinophils % 3.2 % (0.1-12.0); Hematocrit 33.8 % (42.0-52.0); Hemoglobin 10.7 g/dL (14.1-18.0); Lymphocytes # 1.3 K/mm3 (0.7-4.5); Lymphocytes % 21.4 % (10-50); Mean Corpuscular HGB Conc 31.8 g/dL (31.8-35.4); Mean Corpuscular Hemoglobin 29.9 pg (27.0-31.2); Mean Corpuscular Volume 93.9 fl (80-94); Mean Platelet Volume 8.5 fl (7.4-10.4); Monocytes # 0.4 K/mm3 (0.1-1.0); Monocytes % 6.7 % (1.7-9.3); Neutrophils % 68.3 % (37.0-80.0); Platelet Count 194 K/mm3 (142-424); Red Cell Distribution Width 13.6 % (11.5-17.5); White Blood Count 5.9 K/mm3 (4.8-10.8)
[2019-10-12 11:11] LABS: Creatinine,Urine Random 158 mg/dL (Not Estab.)
[2019-10-12 11:29] LABS: Chloride 109 mmol/L (98-107); Sodium 139 mmol/L (136-145)
[2019-10-12 11:30] LABS: Albumin Level 4.2 g/dl (3.5-5.0); Potassium 5.1 mmoL/L (3.5-5.1)
[2019-10-12 11:32] LABS: Blood Urea Nitrogen 29 mg/dl (9-20); Estimated Glomerular Filt Rate 35 ml/min (>60); GFR (African American) 42 ML/MIN (>60)
[2019-10-12 11:33] LABS: Anion Gap 10.1 mEq/L (5-15); Calcium 9.2 mg/dl (8.4-10.2); Carbon Dioxide 25 mmol/L (22.0-30.0); Glucose 166 mg/dl (74-100); Phosphorous 3.6 mg/dl (2.5-4.5)
== END ==
PROVIDERS: Visit Provider Internal Medicine
DX: N18.3 Chronic kidney disease, stage 3 (moderate) (principal); D63.1 Anemia in chronic kidney disease
CPT/HCPCS: 36415; 80069; 82570; 84155; 85025

== ENCOUNTER → 2019-12-22 12:37 | Outpatient (CLI) | payer MEDICARE, SELFPAY ==
[2019-12-22 12:43] LABS: Microscopic, Urine URINE MICROSCOPIC (MICROSCOPIC)
[2019-12-22 13:22] LABS: Appearance,Urine CLEAR (Clear); Bilirubin,Urine Negative (Negative); Blood, Urine Negative (Negative); Color,Urine YELLOW (Yellow); Glucose,Urine (UA) Negative (Negative); Ketones,Urine Negative (Negative); Leukocyte Esterase,Urine Negative (Negative); Nitrate,Urine Negative (Negative); PH,Urine 5.5 (5.0-8.5); Protein,Urine 1+ (Negative); Specific Gravity, Urine 1.025 (1.005-1.030); Urobilinogen,Urine 0.2 EU/dl (0.2)
[2019-12-22 13:36] LABS: Squamous Epithelial Cell,Urine Occasional #/hpf (0-5); WBC,Urine Occasional #/hpf (0-3)
[2019-12-22 14:04] LABS: Creatinine,Urine Random 339 mg/dL (Not Estab.)
[2019-12-22 14:41] LABS: Anion Gap 14.5 mEq/L (5-15); Blood Urea Nitrogen 31 mg/dl (9-20); Calcium 9.3 mg/dl (8.4-10.2); Carbon Dioxide 24 mmol/L (22.0-30.0); Chloride 112 mmol/L (98-107); Estimated Glomerular Filt Rate 35 ml/min (>60); GFR (African American) 42 ML/MIN (>60); Glucose 131 mg/dl (74-100); Phosphorous 4.2 mg/dl (2.5-4.5); Potassium 5.5 mmoL/L (3.5-5.1); Sodium 145 mmol/L (136-145)
== END ==
PROVIDERS: Visit Provider Internal Medicine
DX: N18.9 Chronic kidney disease, unspecified (principal); R80.9 Proteinuria, unspecified
CPT/HCPCS: 36415; 80069; 81001; 82570; 84155

== ENCOUNTER → 2020-04-13 08:58 | Outpatient (CLI) | payer MEDICARE, SELFPAY ==
--- NOTE | 2020-04-13 | CA_ITS ---
APPROVED REPORT Applique Sewer: BOUCHRA Laterality: Bilateral Risk Factors Hypertension: Hyperlipidemia Doppler Spectral Velocity Analysis ECA (R) 73.20/5.30 cm/s ECA (L) 98.80/9.40 cm/s dICA (R) 86.50/18.80 cm/s dICA (L) 111.70/23.50 cm/s Ute (R) 102.50/25.60 cm/s Ute (L) 107.00/27.00 cm/s pICA (R) 157.40/41.80 cm/s pICA (L) 108.20/23.50 cm/s dCCA (R) 195.00/32.00 cm/s dCCA (L) 104.50/19.70 cm/s pCCA (R) 67.90/13.40 cm/s pCCA (L) 83.10/17.10 cm/s Vert (R) 45.40/11.10 cm/s Vert (L) 88.20/20.00 cm/s ICA/CCA 0.81 ICA/CCA 1.07 Findings Duplex evaluation demonstrates stenosis of the right proximal internal carotid artery in the range of 50-69% with PSV =140 cm/sec, EDV <100 cm/sec, and IC/CC Ratio <4.0. Duplex evaluation demonstrates stenosis of the left proximal internal carotid artery <20% with PSV <140 cm/sec, EDV <100 cm/sec, and IC/CC Ratio <4.0. Patient has a stent noted in the left ICA and ECA. Conclusion Duplex evaluation demonstrates stenosis of the right proximal internal carotid artery in the range of 50-69% with PSV =140 cm/sec, EDV <100 cm/sec, and IC/CC Ratio <4.0. Duplex evaluation demonstrates stenosis of the left proximal internal carotid artery <20% with PSV <140 cm/sec, EDV <100 cm/sec, and IC/CC Ratio <4.0. Patient has a stent noted in the left ICA and ECA. Electronically signed by : Juan Trent MD 04/14/2020 17:26:26
== END ==
PROVIDERS: PCP Family Medicine; Visit Provider Family Medicine
DX: I65.21 Occlusion and stenosis of right carotid artery (principal)
CPT/HCPCS: 93880

== ENCOUNTER → 2020-06-14 09:16 | Outpatient (CLI) | payer MEDICARE, SELFPAY ==
--- NOTE | 2020-06-14 09:19 | US_ITS ---
PROCEDURE: US KIDNEY CLINICAL INDICATION: CHRONIC KIDNEY DISESE, STAGE III Chronic renal disease COMPARISON: No exams were available for comparison FINDINGS: The right kidney is [id number]. No hydronephrosis, or renal mass or perinephric fluid collection is evident. The left kidney is [id number]. No hydronephrosis, or renal mass or perinephric fluid collection is evident. There is bilateral renal cortical thinning with some increased echogenicity of the renal cortex. IMPRESSION: Bilateral renal cortical thinning. No hydronephrosis. Dictated by: Juan Trent MD 06/14/2020 15:25 Juan Trent MD in [facility] 06/14/2020 15:25
[2020-06-14 09:54] LABS: Microscopic, Urine URINE MICROSCOPIC (MICROSCOPIC)
[2020-06-14 10:25] LABS: Basophils % 0.5 % (0.1-2.0); Eosinophils # 0.2 K/mm3 (0.0-0.4); Eosinophils % 2.1 % (0.1-12.0); Hematocrit 42.3 % (42.0-52.0); Hemoglobin 13.9 g/dL (14.1-18.0); Lymphocytes # 1.5 K/mm3 (0.7-4.5); Mean Corpuscular Hemoglobin 31.9 pg (27.0-31.2); Mean Corpuscular Volume 96.7 fl (80-94); Mean Platelet Volume 8.4 fl (7.4-10.4); Monocytes # 0.7 K/mm3 (0.1-1.0); Monocytes % 8.5 % (1.7-9.3); Neutrophils # 5.7 K/mm3 (1.8-7.8); Neutrophils % 69.9 % (37.0-80.0); Platelet Count 214 K/mm3 (142-424); Red Blood Count 4.37 M/mm3 (4.60-6.20); White Blood Count 8.1 K/mm3 (4.8-10.8)
[2020-06-14 10:34] LABS: Appearance,Urine CLEAR (Clear); Bilirubin,Urine Negative (Negative); Blood, Urine Negative (Negative); Color,Urine YELLOW (Yellow); Glucose,Urine (UA) Negative (Negative); Ketones,Urine Negative (Negative); Leukocyte Esterase,Urine Negative (Negative); Nitrate,Urine Negative (Negative); Protein,Urine 2+ (Negative); Urobilinogen,Urine 0.2 EU/dl (0.2)
[2020-06-14 10:52] LABS: Creatinine,Urine Random 78 mg/dL (Not Estab.)
[2020-06-14 11:06] LABS: Squamous Epithelial Cell,Urine Occasional #/hpf (0-5); WBC,Urine Occasional #/hpf (0-3)
[2020-06-14 11:09] LABS: Intact Parathyroid Hormone 60.4 pg/mL (7.5-53.5)
[2020-06-14 11:11] LABS: Chloride 108 mmol/L (98-107)
[2020-06-14 11:12] LABS: Albumin Level 4.8 g/dl (3.5-5.0); Potassium 4.6 mmoL/L (3.5-5.1); Sodium 143 mmol/L (136-145)
[2020-06-14 11:14] LABS: 25-OH Vitamin D, Total 43.4 ng/mL (30-100); Blood Urea Nitrogen 23 mg/dl (9-20); Estimated Glomerular Filt Rate 39 ml/min (>60); GFR (African American) 47 ML/MIN (>60)
[2020-06-14 11:15] LABS: Anion Gap 13.6 mEq/L (5-15); Calcium 9.8 mg/dl (8.4-10.2); Carbon Dioxide 26 mmol/L (22.0-30.0); Glucose 101 mg/dl (74-100); Phosphorous 4.1 mg/dl (2.5-4.5)
[2020-06-15 17:01] LABS: Calcium, Ionized 4.9 mg/dL (4.5-5.6)
== END ==
PROVIDERS: PCP Family Medicine; Visit Provider Internal Medicine
DX: N18.30 Chronic kidney disease, stage 3 unspecified (principal)
CPT/HCPCS: 36415; 76770; 80069; 81001; 82306; 82330; 82570; 83970; 84155; 85025

== ENCOUNTER → 2020-08-15 07:59 | Outpatient (CLI) | payer MEDICARE, SELFPAY ==
[2020-08-15 08:08] LABS: Microscopic, Urine URINE MICROSCOPIC (MICROSCOPIC)
[2020-08-15 08:32] LABS: Basophils % 0.5 % (0.1-2.0); Eosinophils # 0.2 K/mm3 (0.0-0.4); Eosinophils % 2.7 % (0.1-12.0); Hematocrit 39.3 % (42.0-52.0); Hemoglobin 12.5 g/dL (14.1-18.0); Lymphocytes # 1.6 K/mm3 (0.7-4.5); Lymphocytes % 17.9 % (10-50); Mean Corpuscular HGB Conc 31.7 g/dL (31.8-35.4); Mean Corpuscular Hemoglobin 30.9 pg (27.0-31.2); Mean Corpuscular Volume 97.4 fl (80-94); Mean Platelet Volume 7.6 fl (7.4-10.4); Monocytes # 0.7 K/mm3 (0.1-1.0); Monocytes % 7.3 % (1.7-9.3); Neutrophils # 6.4 K/mm3 (1.8-7.8); Neutrophils % 71.6 % (37.0-80.0); Platelet Count 257 K/mm3 (142-424); Red Blood Count 4.04 M/mm3 (4.60-6.20); Red Cell Distribution Width 13.9 % (11.5-17.5); White Blood Count 8.9 K/mm3 (4.8-10.8)
[2020-08-15 08:46] LABS: Appearance,Urine CLEAR (Clear); Bilirubin,Urine Negative (Negative); Blood, Urine Negative (Negative); Color,Urine YELLOW (Yellow); Glucose,Urine (UA) Negative (Negative); Ketones,Urine Negative (Negative); Leukocyte Esterase,Urine Negative (Negative); Nitrate,Urine Negative (Negative); PH,Urine 5.5 (5.0-8.5); Protein,Urine 1+ (Negative); Specific Gravity, Urine 1.025 (1.005-1.030); Urobilinogen,Urine 0.2 EU/dl (0.2)
[2020-08-15 09:14] LABS: Creatinine,Urine Random 82 mg/dL (Not Estab.); Microalbumin/Creatinine Ratio 535.4
[2020-08-15 09:32] LABS: Albumin Level 4.6 g/dl (3.5-5.0); Anion Gap 14.7 mEq/L (5-15); Blood Urea Nitrogen 36 mg/dl (9-20); Calcium 9.4 mg/dl (8.4-10.2); Carbon Dioxide 22 mmol/L (22.0-30.0); Chloride 111 mmol/L (98-107); Estimated Glomerular Filt Rate 34 ml/min (>60); GFR (African American) 42 ML/MIN (>60); Glucose 110 mg/dl (74-100); Phosphorous 4.2 mg/dl (2.5-4.5); Potassium 4.7 mmoL/L (3.5-5.1); Sodium 143 mmol/L (136-145); Uric Acid 8.7 mg/dl (3.5-8.5)
[2020-08-15 09:43] LABS: Intact Parathyroid Hormone 86.4 pg/mL (7.5-53.5)
[2020-08-15 09:49] LABS: 25-OH Vitamin D, Total 44.5 ng/mL (30-100)
== END ==
PROVIDERS: Visit Provider Internal Medicine
DX: R80.9 Proteinuria, unspecified (principal); Z79.84 Long term (current) use of oral hypoglycemic drugs; E11.22 Type 2 diabetes mellitus with diabetic chronic kidney disease; N18.30 Chronic kidney disease, stage 3 unspecified
CPT/HCPCS: 36415; 80069; 81001; 82043; 82306; 82330; 82570; 83970; 84155; 84550; 85025

== ENCOUNTER → 2020-09-09 10:42 | Outpatient (CLI) | payer MEDICARE, SELFPAY ==
--- NOTE | 2020-09-09 10:47 | XR_ITS ---
PROCEDURE: XR FOOT LT MIN 3V CLINICAL INDICATION: LT FOOT PAIN, POSSIBLE PLANTER FASCITES COMPARISON: No exams were available for comparison FINDINGS: No fracture or dislocation. No lytic or blastic change. There is normal mineralization. The joint spaces are well-preserved. No significant degenerative/arthritic changes. No erosive changes evident. Other findings:Vascular calcification is noted. There is a small calcaneal spur without erosion. Small Achilles enthesophyte is present. IMPRESSION: No acute findings. Dictated by: Juan Trent MD 09/09/2020 11:59 Juan Trent MD in [facility] 09/09/2020 11:59
== END ==
PROVIDERS: PCP Family Medicine; Visit Provider Family Medicine
DX: M79.672 Pain in left foot (principal)
CPT/HCPCS: 73630

== ENCOUNTER → 2020-11-22 10:17 | Outpatient (CLI) | payer MEDICARE, SELFPAY ==
[2020-11-22 10:32] LABS: Microscopic, Urine URINE MICROSCOPIC (MICROSCOPIC)
[2020-11-22 10:58] LABS: Basophils # 0.1 K/mm3 (0-0.2); Basophils % 0.6 % (0.1-2.0); Eosinophils # 0.2 K/mm3 (0.0-0.4); Eosinophils % 3.2 % (0.1-12.0); Hematocrit 35.4 % (42.0-52.0); Hemoglobin 11.7 g/dL (14.1-18.0); Lymphocytes # 1.4 K/mm3 (0.7-4.5); Lymphocytes % 18.6 % (10-50); Mean Corpuscular Hemoglobin 31.9 pg (27.0-31.2); Mean Corpuscular Volume 96.7 fl (80-94); Mean Platelet Volume 8.2 fl (7.4-10.4); Monocytes # 0.6 K/mm3 (0.1-1.0); Monocytes % 7.9 % (1.7-9.3); Neutrophils # 5.4 K/mm3 (1.8-7.8); Neutrophils % 69.8 % (37.0-80.0); Platelet Count 208 K/mm3 (142-424); Red Blood Count 3.66 M/mm3 (4.60-6.20); Red Cell Distribution Width 15.3 % (11.5-17.5); White Blood Count 7.7 K/mm3 (4.8-10.8)
[2020-11-22 11:15] LABS: Appearance,Urine CLEAR (Clear); Bilirubin,Urine Negative (Negative); Blood, Urine Negative (Negative); Color,Urine YELLOW (Yellow); Glucose,Urine (UA) Negative (Negative); Ketones,Urine TRACE (Negative); Leukocyte Esterase,Urine Negative (Negative); Nitrate,Urine Negative (Negative); PH,Urine 5.5 (5.0-8.5); Protein,Urine 2+ (Negative); Specific Gravity, Urine 1.025 (1.005-1.030); Urobilinogen,Urine 0.2 EU/dl (0.2)
[2020-11-22 11:21] LABS: Creatinine,Urine Random 340 mg/dL (Not Estab.)
[2020-11-22 12:07] LABS: Albumin Level 4.4 g/dl (3.5-5.0); Anion Gap 16.5 mEq/L (5-15); Blood Urea Nitrogen 25 mg/dl (9-20); Calcium 9.5 mg/dl (8.4-10.2); Carbon Dioxide 26 mmol/L (22.0-30.0); Chloride 109 mmol/L (98-107); Estimated Glomerular Filt Rate 29 ml/min (>60); GFR (African American) 35 ML/MIN (>60); Glucose 102 mg/dl (74-100); Potassium 5.5 mmoL/L (3.5-5.1); Sodium 146 mmol/L (136-145); Uric Acid 4.2 mg/dl (3.5-8.5)
[2020-11-22 12:19] LABS: Intact Parathyroid Hormone 74.8 pg/mL (7.5-53.5)
[2020-11-22 12:24] LABS: 25-OH Vitamin D, Total 67.7 ng/mL (30-100)
[2020-11-23 15:25] LABS: Calcium, Ionized 5.3 mg/dL (4.5-5.6)
== END ==
PROVIDERS: Visit Provider Internal Medicine
DX: N18.30 Chronic kidney disease, stage 3 unspecified (principal)
CPT/HCPCS: 36415; 80069; 81001; 82306; 82330; 82570; 83970; 84155; 84550; 85025

== ENCOUNTER → 2020-12-07 08:51 | Outpatient (CLI) | payer MEDICARE, SELFPAY ==
[2020-12-07 08:57] LABS: Microscopic, Urine URINE MICROSCOPIC (MICROSCOPIC)
[2020-12-07 09:16] LABS: Appearance,Urine CLEAR (Clear); Bilirubin,Urine Negative (Negative); Blood, Urine Negative (Negative); Color,Urine YELLOW (Yellow); Glucose,Urine (UA) Negative (Negative); Ketones,Urine Negative (Negative); Leukocyte Esterase,Urine Negative (Negative); Nitrate,Urine Negative (Negative); Protein,Urine TRACE (Negative); Specific Gravity, Urine 1.015 (1.005-1.030); Urobilinogen,Urine 0.2 EU/dl (0.2)
[2020-12-07 09:18] LABS: Hematocrit 33.7 % (42.0-52.0); Hemoglobin 11.1 g/dL (14.1-18.0); Mean Corpuscular HGB Conc 32.9 g/dL (31.8-35.4); Mean Corpuscular Volume 97.2 fl (80-94); Platelet Count 189 K/mm3 (142-424); Red Blood Count 3.46 M/mm3 (4.60-6.20); Red Cell Distribution Width 15.3 % (11.5-17.5); White Blood Count 7.6 K/mm3 (4.8-10.8)
[2020-12-07 09:36] LABS: Albumin Level 4.6 g/dl (3.5-5.0); Anion Gap 15.6 mEq/L (5-15); Blood Urea Nitrogen 33 mg/dl (9-20); Calcium 9.2 mg/dl (8.4-10.2); Carbon Dioxide 22 mmol/L (22.0-30.0); Chloride 112 mmol/L (98-107); Estimated Glomerular Filt Rate 37 ml/min (>60); GFR (African American) 44 ML/MIN (>60); Glucose 95 mg/dl (74-100); Magnesium 1.3 mg/dl (1.6-2.3); Phosphorous 4.1 mg/dl (2.5-4.5); Potassium 5.6 mmoL/L (3.5-5.1); Sodium 144 mmol/L (136-145)
[2020-12-07 09:54] LABS: 25-OH Vitamin D, Total 73.1 ng/mL (30-100)
[2020-12-07 15:21] LABS: Creatinine,Urine Random 69 mg/dL (Not Estab.)
[2020-12-08 12:40] LABS: Calcium, Ionized 5.3 mg/dL (4.5-5.6)
[2020-12-09 23:42] LABS: Tandem-R Ostase 11.6 ug/L (7.6-24.4)
== END ==
PROVIDERS: Visit Provider Internal Medicine
DX: N18.30 Chronic kidney disease, stage 3 unspecified (principal); E11.9 Type 2 diabetes mellitus without complications; E78.5 Hyperlipidemia, unspecified; I10 Essential (primary) hypertension; Z79.84 Long term (current) use of oral hypoglycemic drugs
CPT/HCPCS: 36415; 80069; 81001; 82306; 82330; 82570; 83735; 83970; 84080; 84155; 85014; 85018; 85048; 85049

== ENCOUNTER → 2021-02-27 08:00 | Outpatient (CLI) | payer MEDICARE, SELFPAY ==
[2021-02-27 08:07] LABS: Microscopic, Urine URINE MICROSCOPIC (MICROSCOPIC)
[2021-02-27 08:39] LABS: Hematocrit 37.4 % (42.0-52.0); Hemoglobin 11.7 g/dL (14.1-18.0); Mean Corpuscular HGB Conc 31.3 g/dL (31.8-35.4); Mean Corpuscular Hemoglobin 32.3 pg (27.0-31.2); Mean Corpuscular Volume 103.3 fl (80-94); Platelet Count 213 K/mm3 (142-424); Red Blood Count 3.62 M/mm3 (4.60-6.20); Red Cell Distribution Width 14.4 % (11.5-17.5); White Blood Count 6.5 K/mm3 (4.8-10.8)
[2021-02-27 09:39] LABS: Appearance,Urine CLEAR (Clear); Bilirubin,Urine Negative (Negative); Blood, Urine Negative (Negative); Color,Urine YELLOW (Yellow); Glucose,Urine (UA) Negative (Negative); Ketones,Urine Negative (Negative); Leukocyte Esterase,Urine Negative (Negative); Nitrate,Urine Negative (Negative); Protein,Urine Negative (Negative); Specific Gravity, Urine <= 1.005 (1.005-1.030); Urobilinogen,Urine 0.2 EU/dl (0.2)
[2021-02-27 09:41] LABS: 25-OH Vitamin D, Total 69.9 ng/mL (30-100)
[2021-02-27 09:45] LABS: Creatinine,Urine Random 58 mg/dL (Not Estab.)
[2021-02-27 10:07] LABS: Squamous Epithelial Cell,Urine Occasional #/hpf (0-5)
[2021-02-27 15:07] LABS: Albumin Level 4.4 g/dl (3.5-5.0); Anion Gap 11.9 mEq/L (5-15); Blood Urea Nitrogen 27 mg/dl (9-20); Calcium 9.4 mg/dl (8.4-10.2); Carbon Dioxide 24 mmol/L (22.0-30.0); Chloride 110 mmol/L (98-107); Estimated Glomerular Filt Rate 34 ml/min (>60); GFR (African American) 42 ML/MIN (>60); Glucose 112 mg/dl (74-100); Magnesium 1.3 mg/dl (1.6-2.3); Phosphorous 3.5 mg/dl (2.5-4.5); Potassium 4.9 mmoL/L (3.5-5.1); Sodium 141 mmol/L (136-145)
[2021-02-28 18:35] LABS: Calcium, Ionized 5.2 mg/dL (4.5-5.6)
[2021-03-02 11:22] LABS: Tandem-R Ostase 12.5 ug/L (7.6-24.4)
== END ==
PROVIDERS: Visit Provider Internal Medicine
DX: N18.32 Chronic kidney disease, stage 3b (principal)
CPT/HCPCS: 80069; 81001; 82306; 82330; 82570; 83735; 83970; 84080; 84155; 85014; 85018; 85048; 85049

== ENCOUNTER → 2021-06-28 07:36 | Outpatient (CLI) | payer MEDICARE, SELFPAY ==
[2021-06-28 07:50] LABS: Microscopic, Urine URINE MICROSCOPIC (MICROSCOPIC)
[2021-06-28 08:10] LABS: Appearance,Urine CLEAR (Clear); Bilirubin,Urine Negative (Negative); Blood, Urine TRACE-I (Negative); Color,Urine YELLOW (Yellow); Glucose,Urine (UA) Negative (Negative); Ketones,Urine Negative (Negative); Leukocyte Esterase,Urine Negative (Negative); Nitrate,Urine Negative (Negative); Protein,Urine 2+ (Negative); Specific Gravity, Urine 1.025 (1.005-1.030); Urobilinogen,Urine 0.2 EU/dl (0.2)
[2021-06-28 08:27] LABS: Bacteria,Urine Trace /lpf; Hematocrit 38.4 % (42.0-52.0); Hemoglobin 11.9 g/dL (14.1-18.0); Mean Corpuscular Hemoglobin 32.2 pg (27.0-31.2); Platelet Count 210 K/mm3 (142-424); Red Blood Count 3.69 M/mm3 (4.60-6.20); Red Cell Distribution Width 14.8 % (11.5-17.5); White Blood Count 6.4 K/mm3 (4.8-10.8)
[2021-06-28 08:28] LABS: RBC,Urine Occasional #/hpf (0-3); Squamous Epithelial Cell,Urine Occasional #/hpf (0-5)
[2021-06-28 08:31] LABS: Creatinine,Urine Random 91 mg/dL (Not Estab.)
[2021-06-28 11:25] LABS: Albumin Level 4.2 g/dl (3.5-5.0); Anion Gap 10.6 mEq/L (5-15); Blood Urea Nitrogen 23 mg/dl (9-20); Calcium 9.7 mg/dl (8.4-10.2); Carbon Dioxide 27 mmol/L (22.0-30.0); Chloride 107 mmol/L (98-107); Estimated Glomerular Filt Rate 45 ml/min (>60); GFR (African American) 55 ML/MIN (>60); Glucose 104 mg/dl (74-100); Phosphorous 3.7 mg/dl (2.5-4.5); Potassium 4.6 mmoL/L (3.5-5.1); Sodium 140 mmol/L (136-145); Uric Acid 4.9 mg/dl (3.5-8.5)
[2021-06-28 11:41] LABS: 25-OH Vitamin D, Total 47.1 ng/mL (30-100)
== END ==
PROVIDERS: PCP Family Medicine; Visit Provider Internal Medicine
DX: N18.32 Chronic kidney disease, stage 3b (principal)
CPT/HCPCS: 36415; 80069; 81001; 82306; 82570; 84155; 84550; 85014; 85018; 85048; 85049

== ENCOUNTER → 2021-11-28 07:22 | Outpatient (CLI) | payer MEDICARE, SELFPAY ==
[2021-11-28 08:13] LABS: Hematocrit 32.4 % (42.0-52.0); Mean Corpuscular HGB Conc 33.9 g/dL (31.8-35.4); Mean Corpuscular Hemoglobin 33.2 pg (27.0-31.2); Mean Corpuscular Volume 97.8 fl (80-94); Platelet Count 177 K/mm3 (142-424); Red Blood Count 3.32 M/mm3 (4.60-6.20); Red Cell Distribution Width 15.3 % (11.5-17.5); White Blood Count 6.7 K/mm3 (4.8-10.8)
[2021-11-28 08:53] LABS: Albumin Level 3.8 g/dl (3.5-5.0); Blood Urea Nitrogen 44 mg/dl (9-20); Calcium 9.1 mg/dl (8.4-10.2); Carbon Dioxide 20 mmol/L (22.0-30.0); Chloride 114 mmol/L (98-107); Estimated Glomerular Filt Rate 32 ml/min (>60); GFR (African American) 39 ML/MIN (>60); Glucose 94 mg/dl (74-100); Phosphorous 4.3 mg/dl (2.5-4.5); Sodium 142 mmol/L (136-145)
[2021-11-28 09:04] LABS: Intact Parathyroid Hormone 65.9 pg/mL (7.5-53.5)
[2021-11-28 12:16] LABS: Microscopic, Urine URINE MICROSCOPIC (MICROSCOPIC)
[2021-11-28 12:30] LABS: Appearance,Urine CLEAR (Clear); Bilirubin,Urine Negative (Negative); Blood, Urine Negative (Negative); Color,Urine YELLOW (Yellow); Glucose,Urine (UA) Negative (Negative); Ketones,Urine Negative (Negative); Leukocyte Esterase,Urine Negative (Negative); Nitrate,Urine Negative (Negative); Protein,Urine 1+ (Negative); Urobilinogen,Urine 0.2 EU/dl (0.2)
[2021-11-28 12:54] LABS: Creatinine,Urine Random 91 mg/dL (Not Estab.)
[2021-11-28 12:58] LABS: Bacteria,Urine Trace /lpf; RBC,Urine Occasional #/hpf (0-3); Squamous Epithelial Cell,Urine Occasional #/hpf (0-5)
[2021-12-07 23:07] LABS: 1,25 Dihydroxy Vitamin D 22 pg/mL (.); 1,25-Dihydroxy, Vitamin D-2 <10 pg/mL (.); 1,25-Dihydroxy, Vitamin D-3 22 pg/mL (.)
== END ==
PROVIDERS: PCP Family Medicine; Visit Provider Internal Medicine
DX: R80.1 Persistent proteinuria, unspecified (principal)
CPT/HCPCS: 36415; 80069; 81001; 82570; 82652; 83970; 84155; 85014; 85018; 85048; 85049

== ENCOUNTER → 2022-01-25 07:13 | Outpatient (CLI) | payer MEDICARE, SELFPAY ==
[2022-01-25 07:24] LABS: Microscopic, Urine URINE MICROSCOPIC (MICROSCOPIC)
[2022-01-25 08:08] LABS: Hematocrit 34.4 % (42.0-52.0); Hemoglobin 10.2 g/dL (14.1-18.0); Mean Corpuscular HGB Conc 29.8 g/dL (31.8-35.4); Mean Corpuscular Volume 110.7 fl (80-94); Platelet Count 194 K/mm3 (142-424); Red Blood Count 3.11 M/mm3 (4.60-6.20); Red Cell Distribution Width 15.8 % (11.5-17.5); White Blood Count 5.1 K/mm3 (4.8-10.8)
[2022-01-25 08:10] LABS: Appearance,Urine CLEAR (Clear); Bilirubin,Urine Negative (Negative); Blood, Urine Negative (Negative); Color,Urine YELLOW (Yellow); Glucose,Urine (UA) Negative (Negative); Ketones,Urine Negative (Negative); Leukocyte Esterase,Urine Negative (Negative); Nitrate,Urine Negative (Negative); Protein,Urine 1+ (Negative); Specific Gravity, Urine <= 1.005 (1.005-1.030); Urobilinogen,Urine 0.2 EU/dl (0.2)
[2022-01-25 08:17] LABS: Creatinine,Urine Random 49 mg/dL (Not Estab.)
[2022-01-25 08:22] LABS: Bacteria,Urine Trace /lpf; Squamous Epithelial Cell,Urine Occasional #/hpf (0-5)
[2022-01-25 09:14] LABS: Albumin Level 4.1 g/dl (3.5-5.0); Anion Gap 12.3 mEq/L (5-15); Blood Urea Nitrogen 37 mg/dl (9-20); Calcium 9.1 mg/dl (8.4-10.2); Carbon Dioxide 23 mmol/L (22.0-30.0); Chloride 112 mmol/L (98-107); Estimated Glomerular Filt Rate 32 ml/min (>60); GFR (African American) 39 ML/MIN (>60); Glucose 116 mg/dl (74-100); Potassium 5.3 mmoL/L (3.5-5.1); Sodium 142 mmol/L (136-145); Uric Acid 3.6 mg/dl (3.5-8.5)
[2022-01-25 09:27] LABS: Intact Parathyroid Hormone 78.5 pg/mL (7.5-53.5)
[2022-01-25 09:33] LABS: 25-OH Vitamin D, Total 73.5 ng/mL (30-100)
== END ==
PROVIDERS: PCP Family Medicine; Visit Provider Internal Medicine
DX: N18.30 Chronic kidney disease, stage 3 unspecified (principal)
CPT/HCPCS: 36415; 80069; 81001; 82306; 82565; 82570; 83970; 84155; 84550; 85014; 85018; 85048; 85049

== ENCOUNTER 2022-03-03 05:41 | Emergency (ER) | payer MEDICARE, SELFPAY ==
--- NOTE | 2022-03-03 05:50 | HMH.EDGENADL ---
Discharge Plan Disposition Patient Disposition: Home, Self-Care Condition: Fair Chief Complaint: PAIN Prescriptions Prescriptions: No Action atorvastatin 20 mg tablet 20 mg PO HS lisinopril 20 mg tablet 20 mg PO glimepiride 2 mg tablet 4 mg PO DAILY omeprazole 40 mg capsule,delayed release(DR/EC) 40 mg PO HS clopidogrel 75 mg tablet 75 mg PO HS krill oil 500 mg capsule 1 cap PO DAILY mecobalamin (vitamin B12) 1,000 mcg tablet,disintegrating 1,000 mcg SUBLINGUAL DAILY cholecalciferol (vitamin D3) 2,000 unit capsule 4,000 unit PO DAILY aspirin [Adult Low Dose Aspirin] 81 mg tablet,delayed release (DR/EC) 81 mg PO DAILY allopurinol 300 mg tablet 300 mg PO chlorthalidone 25 mg tablet 25 mg PO levothyroxine 88 mcg tablet 88 mcg PO DAILY trospium 60 mg capsule,extended release 24hr 60 mg PO DAILY amlodipine 5 mg tablet 5 mg PO DAILY Qty: 90 2RF Rx Instructions: take one tablet by mouth once daily vitamin B complex 1 EACH tablet 1 each PO DAILY carvedilol 25 MG tablet 25 mg PO BID Qty: 60 0RF hydrochlorothiazide 25 MG tablet 25 mg PO DAILY Qty: 30 0RF Referrals Follow up/Referrals: Jared Ramos MD [Primary Care Provider] - See instructions Activity Restrictions/Add. Instructions Additional Instructions/Restrictions: Please continue supportive care at home including tylenol, ibuprofen and lidocaine patches. Follow up with your primary care doctor. If your condition worsens or additional concerns arise, specifically if you develop a fever, if you develop swelling, redness and increasing warmth in your joint, return promptly to the emergency department for reassessment. Clinical Impressions Clinical Impression: Acute pain of right shoulder, Chronic hip pain Instructions Patient Instructions: DI for Chronic Pain -- Adult Discharge ED Provider: Judith Rosa General Adult HPI General Chief complaint: PAIN Stated complaint: Right shoulder pain,no injury Time Seen by Provider: 03/03/22 05:50 Mode of Arrival: Ambulatory Source of Information: Patient and Relative Limitations: No Limitations History of Present Illness HPI narrative: Patient is a 81-year-old male with a history of type 2 diabetes, hypertension, hyperlipidemia, thyroid disease, stage IV kidney disease presenting for chief complaint of right shoulder pain for 1 day. Patient states pain is aggravated with movement of his arm and with palpation. Denies any fever, chest pain, shortness of breath, hemoptysis, productive cough, abdominal pain, nausea, vomiting, diaphoresis, changes in GI/. Patient has not noted any skin changes or swelling of the right shoulder. Patient is also complaining of right buttocks pain. No fall or trauma. Related Data Home Medications Medication Instructions Recorded Confirmed clopidogrel 75 mg tablet 75 mg PO HS ANTIPLATELET 08/14/17 01/25/22 glimepiride 2 mg tablet 4 mg PO DAILY Diabetes 08/14/17 01/25/22 krill oil 500 mg capsule 1 cap PO DAILY Supplement 08/14/17 01/25/22 mecobalamin (vitamin B12) 1,000 1,000 mcg sublingual DAILY 08/14/17 01/25/22 mcg disintegrating Supplement tablet,sublingual omeprazole 40 mg capsule,delayed 40 mg PO HS GERD 08/14/17 01/25/22 release cholecalciferol (vitamin D3) 50 4,000 unit PO DAILY Supplement 10/31/17 01/25/22 mcg (2,000 unit) capsule aspirin 81 mg tablet,delayed 81 mg PO DAILY CAD 07/29/18 01/25/22 release (Adult Low Dose Aspirin) atorvastatin 20 mg tablet 20 mg PO HS Cholesterol 12/09/18 01/25/22 vitamin B complex 1 each PO DAILY Supplement 04/29/19 01/25/22 lisinopril 20 mg tablet 20 mg PO 10/07/19 01/25/22 allopurinol 300 mg tablet 300 mg PO 08/09/21 01/25/22 chlorthalidone 25 mg tablet 25 mg PO 08/09/21 01/25/22 levothyroxine 88 mcg tablet 88 mcg PO DAILY 01/25/22 01/25/22 trospium 60 mg capsule,extended 60 mg PO DAILY 01/25/22 01/25/22
[2022-03-03 05:53] VITALS: BP 124/68; PULSE 72; RESP 16; TEMP 36.6; O2SAT 97; BMI 21.6
--- NOTE | 2022-03-03 05:57 | ECG_ITS ---
APPROVED REPORT Exam: Resting ECG HR:68 bpm ECG Measurements Heart Rate 68 AXES NE 199 P 71 QRSd 91 QRS 14 QT 356 T 73 QTc 373 Conclusion SINUS RHYTHM NORMAL ECG UNCONFIRMED REPORT Electronically signed by : Waldo Ramirez MD 03/03/2022 17:38:14
--- NOTE | 2022-03-03 06:19 | XR_ITS ---
PROCEDURE INFORMATION: Exam: XR Right Shoulder Exam date and time: 03/03/2022 6:26 AM Age: 81 years old Clinical indication: Pain; Shoulder; Right; Additional info: Right shoulder pain TECHNIQUE: Imaging protocol: Radiologic exam of the Right shoulder. Views: 2 or more views. COMPARISON: None FINDINGS: Bones/joints: Degenerative change. Anatomic alignment. Lungs: Interstitial prominence and chronic granulomatous disease. Soft tissues: Unremarkable soft tissues. IMPRESSION: Degenerative change.
[2022-03-03 06:45] LABS: Basophils % 0.3 % (0.1-2.0); Eosinophils # 0.1 K/mm3 (0.0-0.4); Eosinophils % 1.7 % (0.1-12.0); Hematocrit 34.2 % (42.0-52.0); Hemoglobin 10.8 g/dL (14.1-18.0); Lymphocytes # 1.2 K/mm3 (0.7-4.5); Lymphocytes % 15.2 % (10-50); Mean Corpuscular HGB Conc 31.6 g/dL (31.8-35.4); Mean Corpuscular Hemoglobin 33.5 pg (27.0-31.2); Mean Platelet Volume 8.5 fl (7.4-10.4); Monocytes # 0.8 K/mm3 (0.1-1.0); Monocytes % 9.8 % (1.7-9.3); Neutrophils # 5.7 K/mm3 (1.8-7.8); Platelet Count 198 K/mm3 (142-424); Red Blood Count 3.22 M/mm3 (4.60-6.20); White Blood Count 7.8 K/mm3 (4.8-10.8)
[2022-03-03 06:46] LABS: Chloride 111 mmol/L (98-107); Sodium 142 mmol/L (136-145)
[2022-03-03 06:48] LABS: Alanine Aminotransferase 19 U/L (12-78); Aspartate Amino Transferase 32 U/L (17-59); Blood Urea Nitrogen 36 mg/dl (9-20); Creatinine Clearance Estimated 33 mL/min (50-200); Estimated Glomerular Filt Rate 37 ml/min (>60); GFR (African American) 44 ML/MIN (>60)
[2022-03-03 06:49] LABS: Albumin Level 4.4 g/dl (3.5-5.0); Albumin/Globulin Ratio 1.7 (1.1-1.8); Alkaline Phosphatase 79 U/L (38-126); Bilirubin,Total < 0.1 mg/dl (0.2-1.3); Calcium 8.8 mg/dl (8.4-10.2); Carbon Dioxide 21 mmol/L (22.0-30.0); Globulin 2.6 g/dL (1.3-3.2); Glucose 139 mg/dl (74-100)
[2022-03-03 06:54] LABS: C-Reactive Protein 18.1 mg/L (0-4)
[2022-03-03 07:02] VITALS: BP 125/68; PULSE 64; O2SAT 99
[2022-03-03 07:28] LABS: Troponin I < 0.01 ng/ml (0.00-0.034)
[2022-03-03 07:30] VITALS: BP 162/135; PULSE 59; O2SAT 98
[2022-03-03 07:35] LABS: Erythrocyte Sedimentation Rate 65 mm/hr (0-20)
--- NOTE | 2022-03-03 07:38 | PC.NURSE ---
ED MD AT BEDSIDE TO REEVALUATE PT
--- NOTE | 2022-03-03 07:43 | XR_ITS ---
PROCEDURE INFORMATION: Exam: XR Right Hip Exam date and time: 03/03/2022 7:59 AM Age: 81 years old Clinical indication: Hip pain; Right hip; Prior surgery; Surgery date: 6+ months; Surgery type: Total hip replacement 2018; Additional info: Right posterior hip pain TECHNIQUE: Imaging protocol: Radiologic exam of the Right hip. Views: 2 or 3 views hip with pelvis when performed. COMPARISON: CT ABDOMEN PELVIS W CON 04/29/2019 6:24 PM FINDINGS: Bones/joints: Osteopenia and degenerative change. Anatomic alignment of right hip arthroplasty. If an occult fracture is of clinical concern, CT correlation can be performed. Soft tissues: Unremarkable. Gastrointestinal tract: Nonspecific bowel dilatation. Organs: Status post prostatectomy. Vasculature: Vascular calcification. IMPRESSION: 1. Osteopenia and degenerative change. 2. Anatomic alignment of right hip arthroplasty. 3. Additional findings as described above.
--- NOTE | 2022-03-03 07:43 | XR_ITS ---
PROCEDURE INFORMATION: Exam: XR Chest Exam date and time: 03/03/2022 8:01 AM Age: 81 years old Clinical indication: Chest wall pain; Additional info: Right apex, anterior chest pain TECHNIQUE: Imaging protocol: Radiologic exam of the chest. Views: 1 view. COMPARISON: CR XR CHEST 2V 04/29/2019 4:19 PM FINDINGS: Lungs: Hypoinflation with interstitial prominence and chronic granulomatous disease. Pleural spaces: No significant pleural effusion. Heart/Mediastinum: No cardiomegaly. Bones/joints: Osteopenia, degenerative change, and ligamentous calcification. Left rotator cuff repair. IMPRESSION: Hypoinflation with interstitial prominence and chronic granulomatous disease.
--- NOTE | 2022-03-03 08:14 | PC.NURSE ---
pt gone to rad
--- NOTE | 2022-03-03 08:19 | PC.NURSE ---
pt back from rad
--- NOTE | 2022-03-03 08:20 | PC.NURSE ---
PT RETURNED FROM XR
[2022-03-03 08:23] VITALS: BP 115/84; RESP 14; O2SAT 96
[2022-03-03 08:30] VITALS: BP 196/84; O2SAT 94
[2022-03-03 09:21] VITALS: BP 165/73; PULSE 65; RESP 18; TEMP 36.7; O2SAT 96
== END 2022-03-03 09:25 | disposition home or self-care (01) ==
PROVIDERS: Emergency Provider Emergency Medicine; PCP Family Medicine
DX: M25.511 Pain in right shoulder (principal); M25.551 Pain in right hip; I12.9 Hypertensive chronic kidney disease with stage 1 through stage 4 chronic kidney disease, or unspecified chronic kidney disease; N18.4 Chronic kidney disease, stage 4 (severe); K21.9 Gastro-esophageal reflux disease without esophagitis; E78.5 Hyperlipidemia, unspecified; E11.9 Type 2 diabetes mellitus without complications; G89.29 Other chronic pain; Z79.82 Long term (current) use of aspirin; Z79.899 Other long term (current) drug therapy; Z88.6 Allergy status to analgesic agent; Z96.641 Presence of right artificial hip joint; Z86.73 Personal history of transient ischemic attack (TIA), and cerebral infarction without residual deficits; Z82.49 Family history of ischemic heart disease and other diseases of the circulatory system; Z80.9 Family history of malignant neoplasm, unspecified
CPT/HCPCS: 71045; 73030; 73502; 80053; 84484; 85025; 85651; 86140; 93005; 99284

== ENCOUNTER → 2022-04-09 07:32 | Outpatient (CLI) | payer MEDICARE, SELFPAY ==
[2022-04-09 09:44] LABS: Hematocrit 35.9 % (42.0-52.0); Hemoglobin 10.8 g/dL (14.1-18.0); Mean Corpuscular HGB Conc 30.1 g/dL (31.8-35.4); Mean Corpuscular Hemoglobin 31.3 pg (27.0-31.2); Platelet Count 271 K/mm3 (142-424); Red Blood Count 3.45 M/mm3 (4.60-6.20); Red Cell Distribution Width 14.7 % (11.5-17.5); White Blood Count 5.8 K/mm3 (4.8-10.8)
[2022-04-09 09:48] LABS: Microscopic, Urine URINE MICROSCOPIC (MICROSCOPIC)
[2022-04-09 09:57] LABS: Appearance,Urine CLEAR (Clear); Bilirubin,Urine Negative (Negative); Blood, Urine Negative (Negative); Color,Urine YELLOW (Yellow); Glucose,Urine (UA) Negative (Negative); Ketones,Urine Negative (Negative); Leukocyte Esterase,Urine Negative (Negative); Nitrate,Urine Negative (Negative); Protein,Urine 1+ (Negative); Specific Gravity, Urine 1.015 (1.005-1.030); Urobilinogen,Urine 0.2 EU/dl (0.2)
[2022-04-09 10:07] LABS: Creatinine,Urine Random 76 mg/dL (Not Estab.)
[2022-04-09 10:11] LABS: Bacteria,Urine Trace /lpf
[2022-04-09 10:41] LABS: Albumin Level 4.3 g/dl (3.5-5.0); Anion Gap 17.6 mEq/L (5-15); Blood Urea Nitrogen 23 mg/dl (9-20); Calcium 8.6 mg/dl (8.4-10.2); Carbon Dioxide 27 mmol/L (22.0-30.0); Chloride 103 mmol/L (98-107); Estimated Glomerular Filt Rate 37 ml/min (>60); GFR (African American) 44 ML/MIN (>60); Glucose 157 mg/dl (74-100); Phosphorous 3.8 mg/dl (2.5-4.5); Potassium 4.6 mmoL/L (3.5-5.1); Sodium 143 mmol/L (136-145)
[2022-04-09 10:50] LABS: Intact Parathyroid Hormone 186.3 pg/mL (7.5-53.5)
[2022-04-09 10:54] LABS: 25-OH Vitamin D, Total 50.2 ng/mL (30-100)
== END ==
PROVIDERS: PCP Family Medicine; Visit Provider Internal Medicine
DX: N18.30 Chronic kidney disease, stage 3 unspecified (principal)
CPT/HCPCS: 36415; 80069; 81001; 82306; 82570; 83970; 84155; 85014; 85018; 85048; 85049

== ENCOUNTER → 2022-05-18 11:44 | Outpatient (CLI) | payer MEDICARE, SELFPAY | PROVIDERS: PCP Student in an Organized Health Care Education/Training Program; Visit Provider Student in an Organized Health Care Education/Training Program | DX: R05.9 Cough, unspecified (principal); U07.1 COVID-19 | CPT/HCPCS: C9803; U0003; U0005 ==

== ENCOUNTER → 2022-07-09 07:13 | Outpatient (CLI) | payer MEDICARE, SELFPAY ==
[2022-07-09 09:41] LABS: Blood Urea Nitrogen 31 mg/dl (9-20); Calcium 8.6 mg/dl (8.4-10.2); Carbon Dioxide 27 mmol/L (22.0-30.0); Chloride 110 mmol/L (98-107); Estimated Glomerular Filt Rate 34 ml/min (>60); GFR (African American) 41 ML/MIN (>60); Glucose 151 mg/dl (74-100); Sodium 142 mmol/L (136-145)
[2022-07-09 09:43] LABS: Anion Gap 9.3 mEq/L (5-15); Potassium 4.3 mmoL/L (3.5-5.1)
== END ==
PROVIDERS: PCP Family Medicine; Visit Provider Internal Medicine
DX: E87.5 Hyperkalemia (principal)
CPT/HCPCS: 36415; 80048

== ENCOUNTER → 2022-09-18 09:29 | Outpatient (POV) | payer MEDICARE, SELFPAY | PROVIDERS: Visit Provider Dermatology | DX: Z00.00 Encounter for general adult medical examination without abnormal findings (principal) ==

== ENCOUNTER 2022-09-23 12:43 | Emergency (ER) | payer MEDICARE, SELFPAY ==
[2022-09-23] VITALS (10 sets, daily range): BP systolic 123–217; BP diastolic 57–88; PULSE 66–74; RESP 16–20; TEMP 36.5–36.6; O2SAT 93–98; BMI 21.6
[2022-09-23 13:05] LABS: Coronavirus 19, PCR Not Detected (NotDetected); Influenza A, PCR Not Detected (NotDetected); Influenza B, PCR Not Detected (NotDetected)
--- NOTE | 2022-09-23 13:13 | XR_ITS ---
PROCEDURE INFORMATION: Exam: XR Chest Exam date and time: 09/23/2022 1:34 PM Age: 82 years old Clinical indication: Fever and other: Nausea TECHNIQUE: Imaging protocol: Radiologic exam of the chest. Views: 1 view. COMPARISON: CR XR CHEST PORTABLE 03/03/2022 8:01 AM FINDINGS: Lungs: No evidence of pneumonia or interstitial edema. Pleural spaces: Unremarkable. No pleural effusion. No pneumothorax. Heart/Mediastinum: Unremarkable. No cardiomegaly. Bones/joints: Unremarkable. Intraperitoneal space: No subdiaphragmatic free air IMPRESSION: No evidence of pneumonia or interstitial edema. .
--- NOTE | 2022-09-23 13:16 | HMH.EDGENADL ---
Discharge Plan Disposition Chief Complaint: Upper Respiratory Infection Prescriptions Prescriptions: No Action atorvastatin 20 mg tablet 20 mg PO HS lisinopril 20 mg tablet 20 mg PO glimepiride 2 mg tablet 4 mg PO DAILY omeprazole 40 mg capsule,delayed release(DR/EC) 40 mg PO HS clopidogrel 75 mg tablet 75 mg PO HS krill oil 500 mg capsule 1 cap PO DAILY mecobalamin (vitamin B12) 1,000 mcg tablet,disintegrating 1,000 mcg SUBLINGUAL DAILY cholecalciferol (vitamin D3) 2,000 unit capsule 4,000 unit PO DAILY aspirin [Adult Low Dose Aspirin] 81 mg tablet,delayed release (DR/EC) 81 mg PO DAILY allopurinol 300 mg tablet 300 mg PO chlorthalidone 25 mg tablet 25 mg PO levothyroxine 88 mcg tablet 88 mcg PO DAILY trospium 60 mg capsule,extended release 24hr 60 mg PO DAILY benzonatate 100 mg capsule 100 mg PO BID PRN (Reason: cough) Qty: 20 0RF methylprednisolone 4 mg tablets,dose pack See Rx Instructions PO PER PKG DIR Qty: 21 0RF Rx Instructions: PO PER PKG DIR amlodipine 5 mg tablet 5 mg PO DAILY Qty: 90 2RF Rx Instructions: take one tablet by mouth once daily vitamin B complex 1 EACH tablet 1 each PO DAILY carvedilol 25 MG tablet 25 mg PO BID Qty: 60 0RF hydrochlorothiazide 25 MG tablet 25 mg PO DAILY Qty: 30 0RF Referrals Follow up/Referrals: Jared Ramos MD [Primary Care Provider] - See instructions Discharge ED Provider: Ulises Broderick General Adult HPI General Chief complaint: Upper Respiratory Infection Stated complaint: Chills, abd pain Time Seen by Provider: 09/23/22 13:08 Mode of Arrival: Ambulatory Source of Information: Patient Limitations: No Limitations Description of Symptoms (Recalled from ER Triage Doc. by RN): pt to ed c/o body aches and generalized abd pain. pt states he started chilling on and has been in bed since. pt unable to localize pain in abd. pt denies urinary symptoms. History of Present Illness HPI narrative: Patient presents with chills and vague abdominal discomfort that started either or Saturday. He describes symptoms as mild to moderate. He does not confirm fever. He had nausea but denies vomiting he denies coughing or sore throat or sinus pain or drainage. Related Data Home Medications Medication Instructions Recorded Confirmed clopidogrel 75 mg tablet 75 mg PO HS ANTIPLATELET 08/14/17 08/01/22 glimepiride 2 mg tablet 4 mg PO DAILY Diabetes 08/14/17 08/01/22 krill oil 500 mg capsule 1 cap PO DAILY Supplement 08/14/17 08/01/22 mecobalamin (vitamin B12) 1,000 1,000 mcg sublingual DAILY 08/14/17 08/01/22 mcg disintegrating Supplement tablet,sublingual omeprazole 40 mg capsule,delayed 40 mg PO HS GERD 08/14/17 08/01/22 release cholecalciferol (vitamin D3) 50 4,000 unit PO DAILY Supplement 10/31/17 08/01/22 mcg (2,000 unit) capsule aspirin 81 mg tablet,delayed 81 mg PO DAILY CAD 07/29/18 08/01/22 release (Adult Low Dose Aspirin) atorvastatin 20 mg tablet 20 mg PO HS Cholesterol 12/09/18 08/01/22 vitamin B complex 1 each PO DAILY Supplement 04/29/19 08/01/22 lisinopril 20 mg tablet 20 mg PO 10/07/19 08/01/22 allopurinol 300 mg tablet 300 mg PO 08/09/21 08/01/22 chlorthalidone 25 mg tablet 25 mg PO 08/09/21 08/01/22 levothyroxine 88 mcg tablet 88 mcg PO DAILY 01/25/22 08/01/22 trospium 60 mg capsule,extended 60 mg PO DAILY 01/25/22 08/01/22 release 24 hr Previous Rx's Medication Instructions Recorded carvedilol 25 mg tablet 25 mg PO BID #60 tabs 05/02/19 hydrochlorothiazide 25 mg tablet 25 mg PO DAILY #30 tabs 05/02/19 amlodipine 5 mg tablet 5 mg PO DAILY #90 tabs 08/24/19 benzonatate 100 mg capsule 100 mg PO BID PRN cough #20 caps 05/18/22 methylprednisolone 4 mg tablets in See Rx Instructions PO PER PKG DIR 05/18/22 a dose pack #21 tabs Allergies Allergy/AdvReac Type Severity Reaction Status Date /
[2022-09-23 13:23] LABS: Basophils % 0.2 % (0.1-2.0); Eosinophils % 0.3 % (0.1-12.0); Hematocrit 35.4 % (42.0-52.0); Hemoglobin 11.8 g/dL (14.1-18.0); Lymphocytes % 23.1 % (10-50); Mean Corpuscular HGB Conc 33.3 g/dL (31.8-35.4); Mean Corpuscular Hemoglobin 32.1 pg (27.0-31.2); Mean Corpuscular Volume 96.5 fl (80-94); Mean Platelet Volume 8.5 fl (7.4-10.4); Monocytes # 0.6 K/mm3 (0.1-1.0); Monocytes % 14.4 % (1.7-9.3); Neutrophils # 2.7 K/mm3 (1.8-7.8); Platelet Count 153 K/mm3 (142-424); Red Blood Count 3.66 M/mm3 (4.60-6.20); Red Cell Distribution Width 15.3 % (11.5-17.5); White Blood Count 4.3 K/mm3 (4.8-10.8)
[2022-09-23 13:26] LABS: Chloride 99 mmol/L (98-107); Sodium 136 mmol/L (136-145)
[2022-09-23 13:28] LABS: Amylase 81 U/L (30-110); Blood Urea Nitrogen 33 mg/dl (9-20); Creatinine Clearance Estimated 23 mL/min (50-200); Estimated Glomerular Filt Rate 25 ml/min (>60); GFR (African American) 30 ML/MIN (>60)
[2022-09-23 13:29] LABS: Alanine Aminotransferase 35 U/L (12-78); Albumin Level 3.6 g/dl (3.5-5.0); Albumin/Globulin Ratio 1.4 (1.1-1.8); Alkaline Phosphatase 74 U/L (38-126); Anion Gap 8.9 mEq/L (5-15); Aspartate Amino Transferase 53 U/L (17-59); Bilirubin,Total 0.5 mg/dl (0.2-1.3); Calcium 7.9 mg/dl (8.4-10.2); Carbon Dioxide 31 mmol/L (22.0-30.0); Globulin 2.5 g/dL (1.3-3.2); Glucose 143 mg/dl (74-100); Lipase 207 U/L (23-300); Total Protein,Serum 6.1 g/dl (6.3-8.2)
[2022-09-23 13:34] LABS: Potassium 2.9 mmoL/L (3.5-5.1)
--- NOTE | 2022-09-23 13:38 | CT_ITS ---
PROCEDURE INFORMATION: Exam: CT Abdomen And Pelvis Without Contrast Exam date and time: 09/23/2022 1:49 PM Age: 82 years old Clinical indication: Fever; Additional info: Abd pain, nausea, fever TECHNIQUE: Imaging protocol: Computed tomography of the abdomen and pelvis without contrast. Radiation optimization: All CT scans at this facility use at least one of these dose optimization techniques: automated exposure control; mA and/or kV adjustment per patient size (includes targeted exams where dose is matched to clinical indication); or iterative reconstruction. REPORTING DATA: Count of CT and Cardiac NM exams in prior 12 months: This patient has received 0 known CTs and 0 known cardiac nuclear medicine studies in the 12 months prior to the current study. COMPARISON: CT ABDOMEN PELVIS W CON 04/29/2019 6:24 PM FINDINGS: Limitations: The absence of intravenous contrast limits the assessment of vascular structures, lesions and lymphadenopathy. Lungs: Right pulmonary granuloma noted.Bibasilar subsegmental atelectasis noted. Heart: Trace pericardial effusion noted. Liver: Scattered granulomas notedNo focal hepatic lesions within the limits of noncontrast examination. Gallbladder and bile ducts: There has been a cholecystectomy. No biliary ductal dilation. Pancreas: No peripancreatic fluid stranding. No main pancreatic ductal dilation. Spleen: Multiple splenic granulomas. No splenomegaly. Adrenal glands: The adrenal glands are normal. Kidneys and ureters: No nephrolithiasis or hydroureteronephrosis on either side. Stomach and bowel: No bowel wall thickening or distention. Scattered colonic diverticula without acute inflammatory change. Appendix: A normal appendix is not well visualized. However, no evidence of inflammatory changes in the right lower quadrant to suggest acute appendicitis. Intraperitoneal space: There is no evidence of free intraperitoneal or pelvic fluid. Vasculature: Hyperattenuating material in the coronary tree likely a combination of vascular stents and atherosclerosis. The aorta demonstrates moderate atherosclerotic calcification. Lymph nodes: No evidence of retroperitoneal or mesenteric lymphadenopathy. Urinary bladder: Unremarkable as visualized. Artificial urethral sphincter is noted with a reservoir in the lower pelvis. Reproductive: Status post prostatectomy. Bones/joints: Status post right hip arthroplasty. Multilevel degenerative changes of the included spine. No acute osseous abnormality. Healed left femoral neck fracture. Soft tissues: Unremarkable. IMPRESSION: No acute abnormality or infectious source in the abdomen or pelvis
--- NOTE | 2022-09-23 13:45 | PC.NURSE ---
pt to xray
--- NOTE | 2022-09-23 14:21 | PC.NURSE ---
pt assisted to restroom
[2022-09-23 14:31] LABS: Microscopic, Urine URINE MICROSCOPIC (MICROSCOPIC)
[2022-09-23 14:35] LABS: Appearance,Urine CLEAR (Clear); Bilirubin,Urine Negative (Negative); Blood, Urine 1+ (Negative); Color,Urine YELLOW (Yellow); Glucose,Urine (UA) Negative (Negative); Ketones,Urine Negative (Negative); Leukocyte Esterase,Urine Negative (Negative); Nitrate,Urine Negative (Negative); PH,Urine 6.5 (5.0-8.5); Protein,Urine 2+ (Negative); Urobilinogen,Urine 0.2 EU/dl (0.2)
[2022-09-23 14:49] LABS: RBC,Urine Occasional #/hpf (0-3)
[2022-09-23 15:40] LABS: Lactic Acid 0.7 mmol/L (0.7-2.1)
--- NOTE | 2022-09-23 15:53 | ECG_ITS ---
APPROVED REPORT Exam: Resting ECG HR:69 bpm ECG Measurements Heart Rate 69 AXES VA 185 P 72 QRSd 94 QRS -29 QT 417 T 54 QTc 437 Conclusion SINUS RHYTHM BORDERLINE LEFT AXIS DEVIATION [QRS AXIS < -20] BORDERLINE ECG UNCONFIRMED REPORT Electronically signed by : Waldo Ramirez MD 09/24/2022 20:15:49
--- NOTE | 2022-09-23 16:11 | HMH.EDGENADL ---
Discharge Plan Disposition Patient Disposition: Home, Self-Care Condition: Good Prescriptions Prescriptions: No Action atorvastatin 20 mg tablet 20 mg PO HS lisinopril 20 mg tablet 20 mg PO glimepiride 2 mg tablet 4 mg PO DAILY omeprazole 40 mg capsule,delayed release(DR/EC) 40 mg PO HS clopidogrel 75 mg tablet 75 mg PO HS krill oil 500 mg capsule 1 cap PO DAILY mecobalamin (vitamin B12) 1,000 mcg tablet,disintegrating 1,000 mcg SUBLINGUAL DAILY cholecalciferol (vitamin D3) 2,000 unit capsule 4,000 unit PO DAILY aspirin [Adult Low Dose Aspirin] 81 mg tablet,delayed release (DR/EC) 81 mg PO DAILY allopurinol 300 mg tablet 300 mg PO chlorthalidone 25 mg tablet 25 mg PO levothyroxine 88 mcg tablet 88 mcg PO DAILY trospium 60 mg capsule,extended release 24hr 60 mg PO DAILY benzonatate 100 mg capsule 100 mg PO BID PRN (Reason: cough) Qty: 20 0RF methylprednisolone 4 mg tablets,dose pack See Rx Instructions PO PER PKG DIR Qty: 21 0RF Rx Instructions: PO PER PKG DIR amlodipine 5 mg tablet 5 mg PO DAILY Qty: 90 2RF Rx Instructions: take one tablet by mouth once daily vitamin B complex 1 EACH tablet 1 each PO DAILY carvedilol 25 MG tablet 25 mg PO BID Qty: 60 0RF hydrochlorothiazide 25 MG tablet 25 mg PO DAILY Qty: 30 0RF Referrals Follow up/Referrals: Jared Ramos MD [Primary Care Provider] - See instructions Activity Restrictions/Add. Instructions Additional Instructions/Restrictions: Have your serum potassium level rechecked no later than Saturday of this week. In meantime drink plenty of fluids. Return for worsening weakness chills or other concerns. Withhold Lokelma until potassium levels rechecked and discussed with your primary care provider. Clinical Impressions Clinical Impression: Chronic kidney disease Discharge ED Provider: Ulises Broderick Adult [facility] General Chief complaint: Upper Respiratory Infection Stated complaint: Chills, abd pain Time Seen by Provider: 09/23/22 13:08 Mode of Arrival: Ambulatory Source of Information: Patient Limitations: No Limitations Description of Symptoms (Recalled from ER Triage Doc. by RN): pt to ed c/o body aches and generalized abd pain. pt states he started chilling on and has been in bed since. pt unable to localize pain in abd. pt denies urinary symptoms. History of Present Illness HPI narrative: Patient presents with nausea as well as chills and some vague abdominal discomfort for the last 2 days. Been no vomiting. There is no exacerbating or alleviating factors. He denies documented fever Related Data Home Medications Medication Instructions Recorded Confirmed clopidogrel 75 mg tablet 75 mg PO HS ANTIPLATELET 08/14/17 08/01/22 glimepiride 2 mg tablet 4 mg PO DAILY Diabetes 08/14/17 08/01/22 krill oil 500 mg capsule 1 cap PO DAILY Supplement 08/14/17 08/01/22 mecobalamin (vitamin B12) 1,000 1,000 mcg sublingual DAILY 08/14/17 08/01/22 mcg disintegrating Supplement tablet,sublingual omeprazole 40 mg capsule,delayed 40 mg PO HS GERD 08/14/17 08/01/22 release cholecalciferol (vitamin D3) 50 4,000 unit PO DAILY Supplement 10/31/17 08/01/22 mcg (2,000 unit) capsule aspirin 81 mg tablet,delayed 81 mg PO DAILY CAD 07/29/18 08/01/22 release (Adult Low Dose Aspirin) atorvastatin 20 mg tablet 20 mg PO HS Cholesterol 12/09/18 08/01/22 vitamin B complex 1 each PO DAILY Supplement 04/29/19 08/01/22 lisinopril 20 mg tablet 20 mg PO 10/07/19 08/01/22 allopurinol 300 mg tablet 300 mg PO 08/09/21 08/01/22 chlorthalidone 25 mg tablet 25 mg PO 08/09/21 08/01/22 levothyroxine 88 mcg tablet 88 mcg PO DAILY 01/25/22 08/01/22 trospium 60 mg capsule,extended 60 mg PO DAILY 01/25/22 08/01/22 release 24 hr Previous Rx's Medication Instructions Recorded carvedilol 25 mg tablet 25 mg PO BID #60 tabs 12/
== END 2022-09-23 16:27 | disposition home or self-care (01) ==
PROVIDERS: Emergency Provider Emergency Medicine; PCP Family Medicine
DX: R10.9 Unspecified abdominal pain (principal); I12.9 Hypertensive chronic kidney disease with stage 1 through stage 4 chronic kidney disease, or unspecified chronic kidney disease; N18.9 Chronic kidney disease, unspecified
CPT/HCPCS: 71045; 74176; 80053; 81001; 82150; 83605; 83690; 85025; 87040; 93005; 96360; 96361; 99285; C9803; U0003; U0005

== ENCOUNTER 2022-09-29 18:04 | Emergency (ER) | payer MEDICARE, SELFPAY ==
[2022-09-29 18:13] VITALS: BP 174/89; PULSE 72; RESP 18; TEMP 36.8; O2SAT 95; BMI 21.2
--- NOTE | 2022-09-29 18:17 | XR_ITS ---
PROCEDURE INFORMATION: Exam: XR Lumbosacral Spine Exam date and time: 09/29/2022 6:15 PM Age: 82 years old Clinical indication: Low back pain TECHNIQUE: Imaging protocol: Radiologic exam of the lumbosacral spine. Views: 2 or 3 views. COMPARISON: CT ABDOMEN PELVIS WO CON 23/09/2022 13:49 FINDINGS: Bones/joints: Status post total right hip arthroplasty. The hardware appears intact. Advanced degenerative changes of the intervertebral disc at L5-S1. Soft tissues: Unremarkable. Intraperitoneal space: Right upper quadrant surgical clips. Vasculature: Vascular calcifications. IMPRESSION: No acute findings.
[2022-09-29 18:35] VITALS: BP 174/89; PULSE 72; RESP 18; TEMP 36.8; O2SAT 95; BMI 21.2
--- NOTE | 2022-09-29 19:17 | EXP.UTC ---
Discharge Plan Disposition Patient Disposition: Home, Self-Care Condition: Good Prescriptions Prescriptions: No Action atorvastatin 20 mg tablet 20 mg PO HS lisinopril 20 mg tablet 20 mg PO glimepiride 2 mg tablet 4 mg PO DAILY omeprazole 40 mg capsule,delayed release(DR/EC) 40 mg PO HS clopidogrel 75 mg tablet 75 mg PO HS krill oil 500 mg capsule 1 cap PO DAILY mecobalamin (vitamin B12) 1,000 mcg tablet,disintegrating 1,000 mcg SUBLINGUAL DAILY cholecalciferol (vitamin D3) 2,000 unit capsule 4,000 unit PO DAILY aspirin [Adult Low Dose Aspirin] 81 mg tablet,delayed release (DR/EC) 81 mg PO DAILY allopurinol 300 mg tablet 300 mg PO chlorthalidone 25 mg tablet 25 mg PO levothyroxine 88 mcg tablet 88 mcg PO DAILY trospium 60 mg capsule,extended release 24hr 60 mg PO DAILY benzonatate 100 mg capsule 100 mg PO BID PRN (Reason: cough) Qty: 20 0RF methylprednisolone 4 mg tablets,dose pack See Rx Instructions PO PER PKG DIR Qty: 21 0RF Rx Instructions: PO PER PKG DIR amlodipine 5 mg tablet 5 mg PO DAILY Qty: 90 2RF Rx Instructions: take one tablet by mouth once daily vitamin B complex 1 EACH tablet 1 each PO DAILY carvedilol 25 MG tablet 25 mg PO BID Qty: 60 0RF hydrochlorothiazide 25 MG tablet 25 mg PO DAILY Qty: 30 0RF Referrals Follow up/Referrals: Jared Ramos MD [Primary Care Provider] - See instructions Activity Restrictions/Add. Instructions Additional Instructions/Restrictions: Follow up with Dr. Moody next week. Clinical Impressions Clinical Impression: Low back pain Qualifiers: Chronicity: acute Back pain laterality: unspecified Sciatica presence: with sciatica Sciatica laterality: sciatica of right side Qualified Code(s): M54.41 - Lumbago with sciatica, right side Instructions Patient Instructions: DI for Low Back Pain, DI for Chronic Pain -- Adult Discharge ED Provider: Brooke Childress [facility] General Stated complaint: Back Pain; Mode of Arrival: Ambulatory Source of Information: Patient Limitations: No Limitations Time Seen by Provider: 09/29/22 19:16 Description of Symptoms (Recalled from Triage Doc. by RN): PATIENT C/O LEFT LUMBAR PAIN THAT STARTED TODAY APPROX 1600. REPORTS A HISTORY OF KIDNEY FAILURE HEENT Symptoms (Recalled from RN notes): No Resp Symptoms (Recalled from RN notes): No Skin Symptoms (Recalled from RN notes): No MS Symptoms (Recalled from RN notes): Yes Functional Status (Recalled from RN notes): WNL History of Present Illness Provider Complaint: Pt states that he bent down to pull up his pants and developed a catch in his back. He reports that he can barely walk at times due to the pain. He states that he doesn't take anything for pain as he has bad kidneys. Pt states that he put Voltaren gel on his back. Related Data Home Medications Medication Instructions Recorded Confirmed clopidogrel 75 mg tablet 75 mg PO HS ANTIPLATELET 08/14/17 08/01/22 glimepiride 2 mg tablet 4 mg PO DAILY Diabetes 08/14/17 08/01/22 krill oil 500 mg capsule 1 cap PO DAILY Supplement 08/14/17 08/01/22 mecobalamin (vitamin B12) 1,000 1,000 mcg sublingual DAILY 08/14/17 08/01/22 mcg disintegrating Supplement tablet,sublingual omeprazole 40 mg capsule,delayed 40 mg PO HS GERD 08/14/17 08/01/22 release cholecalciferol (vitamin D3) 50 4,000 unit PO DAILY Supplement 10/31/17 08/01/22 mcg (2,000 unit) capsule aspirin 81 mg tablet,delayed 81 mg PO DAILY CAD 07/29/18 08/01/22 release (Adult Low Dose Aspirin) atorvastatin 20 mg tablet 20 mg PO HS Cholesterol 12/09/18 08/01/22 vitamin B complex 1 each PO DAILY Supplement 04/29/19 08/01/22 lisinopril 20 mg tablet 20 mg PO 10/07/19 08/01/22 allopurinol 300 mg tablet 300 mg PO 08/09/21 08/01/22 chlorthalidone 25 mg tablet 25 mg PO 08/09/21 08/01/22 levothyroxine 88 mcg tablet 88 mcg PO DAILY
[2022-09-29 19:57] VITALS: BP 174/89; PULSE 72; RESP 18; TEMP 36.8; O2SAT 95
== END 2022-09-29 20:00 | disposition home or self-care (01) ==
PROVIDERS: Emergency Provider Nurse Practitioner Family; PCP Family Medicine
DX: M54.41 Lumbago with sciatica, right side (principal); K21.9 Gastro-esophageal reflux disease without esophagitis; I10 Essential (primary) hypertension; E78.5 Hyperlipidemia, unspecified; E03.9 Hypothyroidism, unspecified; E11.9 Type 2 diabetes mellitus without complications; Z79.84 Long term (current) use of oral hypoglycemic drugs
CPT/HCPCS: 72100; 99204; 99212; G0463

== ENCOUNTER → 2022-10-02 06:50 | Outpatient (CLI) | payer MEDICARE, SELFPAY ==
[2022-10-02 07:08] LABS: Microscopic, Urine URINE MICROSCOPIC (MICROSCOPIC)
[2022-10-02 07:41] LABS: Hematocrit 36.3 % (42.0-52.0); Hemoglobin 11.6 g/dL (14.1-18.0); Mean Corpuscular HGB Conc 31.9 g/dL (31.8-35.4); Mean Corpuscular Hemoglobin 31.7 pg (27.0-31.2); Mean Corpuscular Volume 99.3 fl (80-94); Platelet Count 260 K/mm3 (142-424); Red Blood Count 3.66 M/mm3 (4.60-6.20); Red Cell Distribution Width 15.2 % (11.5-17.5); White Blood Count 8.1 K/mm3 (4.8-10.8)
[2022-10-02 07:58] LABS: Anion Gap 17.4 mEq/L (5-15); Blood Urea Nitrogen 34 mg/dl (9-20); Calcium 8.4 mg/dl (8.4-10.2); Carbon Dioxide 27 mmol/L (22.0-30.0); Chloride 100 mmol/L (98-107); Estimated Glomerular Filt Rate 26 ml/min (>60); GFR (African American) 32 ML/MIN (>60); Glucose 142 mg/dl (74-100); Phosphorous 3.7 mg/dl (2.5-4.5); Potassium 4.4 mmoL/L (3.5-5.1); Sodium 140 mmol/L (136-145); Uric Acid 6.5 mg/dl (3.5-8.5)
[2022-10-02 08:08] LABS: Intact Parathyroid Hormone 172.6 pg/mL (7.5-53.5)
[2022-10-02 08:13] LABS: 25-OH Vitamin D, Total 38.1 ng/mL (30-100)
[2022-10-02 08:44] LABS: Appearance,Urine CLEAR (Clear); Bilirubin,Urine Negative (Negative); Blood, Urine Negative (Negative); Color,Urine YELLOW (Yellow); Glucose,Urine (UA) Negative (Negative); Ketones,Urine Negative (Negative); Leukocyte Esterase,Urine Negative (Negative); Nitrate,Urine Negative (Negative); Protein,Urine 3+ (Negative); Urobilinogen,Urine 0.2 EU/dl (0.2)
[2022-10-02 09:07] LABS: WBC,Urine Occasional #/hpf (0-3)
[2022-10-02 09:09] LABS: Creatinine,Urine Random 114 mg/dL (Not Estab.)
== END ==
PROVIDERS: PCP Family Medicine; Visit Provider Internal Medicine
DX: N18.31 Chronic kidney disease, stage 3a (principal); E87.5 Hyperkalemia
CPT/HCPCS: 36415; 80048; 80069; 81001; 82306; 82570; 83970; 84155; 84550; 85014; 85018; 85048; 85049

== ENCOUNTER 2022-11-15 11:00 | Outpatient (RCR) | payer MEDICARE, SELFPAY | END 2022-11-15 11:05 | disposition home or self-care (01) | LOC: PT 11:00 | PROVIDERS: PCP Family Medicine; Visit Provider Nurse Practitioner Family | DX: M25.551 Pain in right hip (principal) | CPT/HCPCS: 97010; 97014; 97110; 97140; 97163; G0283 ==

== ENCOUNTER → 2022-11-23 07:07 | Outpatient (CLI) | payer MEDICARE, SELFPAY ==
[2022-11-23 07:40] LABS: Chloride 113 mmol/L (98-107)
[2022-11-23 07:41] LABS: Sodium 141 mmol/L (136-145)
[2022-11-23 07:43] LABS: Blood Urea Nitrogen 43 mg/dl (9-20); Carbon Dioxide 19 mmol/L (22.0-30.0); Estimated Glomerular Filt Rate 29 ml/min (>60); GFR (African American) 35 ML/MIN (>60)
[2022-11-23 07:44] LABS: Calcium 8.9 mg/dl (8.4-10.2); Glucose 96 mg/dl (74-100); Phosphorous 3.8 mg/dl (2.5-4.5)
[2022-11-23 07:58] LABS: Anion Gap 14.8 mEq/L (5-15); Potassium 5.8 mmoL/L (3.5-5.1)
== END ==
PROVIDERS: PCP Family Medicine; Visit Provider Physician Assistant
DX: E87.5 Hyperkalemia (principal); N18.30 Chronic kidney disease, stage 3 unspecified
CPT/HCPCS: 36415; 80069

== ENCOUNTER 2022-12-04 21:03 | Observation (INO) | payer MEDICARE, SELFPAY ==
[2022-12-04 21:05] VITALS: BP 107/49; PULSE 76; RESP 19; TEMP 36.7; O2SAT 98; BMI 20.3
[2022-12-04 21:20] VITALS: BMI 20.3
[2022-12-04 21:24] LABS: Microscopic, Urine URINE MICROSCOPIC (MICROSCOPIC)
[2022-12-04 21:26] LABS: Appearance,Urine SL CLOUDY (Clear); Blood, Urine 1+ (Negative); Color,Urine YELLOW (Yellow); Glucose,Urine (UA) Negative (Negative); Ketones,Urine TRACE (Negative); Leukocyte Esterase,Urine 1+ (Negative); Nitrate,Urine Negative (Negative); PH,Urine 5.5 (5.0-8.5); Protein,Urine 3+ (Negative); Specific Gravity, Urine >= 1.030 (1.005-1.030); Urobilinogen,Urine 0.2 EU/dl (0.2)
[2022-12-04 21:28] LABS: Bilirubin,Urine 1+ (Negative)
[2022-12-04 21:30] VITALS: BP 107/49; PULSE 66; RESP 18; O2SAT 95
--- NOTE | 2022-12-04 21:35 | HMH.EDGENADL ---
Discharge Plan Disposition Patient Disposition: Admitted As Inpatient Clinical Impressions Clinical Impression: Kidney function abnormal Discharge ED Provider: Chan Daugherty General Adult HPI General Chief complaint: Urogenital-Male Stated complaint: can't urinate, burning sensation Time Seen by Provider: 12/04/22 21:35 History of Present Illness HPI narrative: The patient presents the emergency department with urgency and frequency this evening. The patient reports that 1 week ago he had similar symptoms with dysuria. Patient denies fever MD complaint: urgency and frequency Onset (ago): week(s) (1 week) Radiation: non-radiation Associated symptoms: negative fever/chills or nausea/vomiting Related Data Home Medications Medication Instructions Recorded Confirmed clopidogrel 75 mg tablet 75 mg PO HS ANTIPLATELET 08/14/17 12/04/22 glimepiride 2 mg tablet 4 mg PO DAILY Diabetes 08/14/17 12/04/22 krill oil 500 mg capsule 1 cap PO DAILY Supplement 08/14/17 12/04/22 mecobalamin (vitamin B12) 1,000 1,000 mcg sublingual DAILY 08/14/17 12/04/22 mcg disintegrating Supplement tablet,sublingual omeprazole 40 mg capsule,delayed 40 mg PO HS GERD 08/14/17 12/04/22 release cholecalciferol (vitamin D3) 50 4,000 unit PO DAILY Supplement 10/31/17 12/04/22 mcg (2,000 unit) capsule aspirin 81 mg tablet,delayed 81 mg PO DAILY CAD 07/29/18 12/04/22 release (Adult Low Dose Aspirin) atorvastatin 20 mg tablet 20 mg PO HS Cholesterol 12/09/18 12/04/22 vitamin B complex 1 each PO DAILY Supplement 04/29/19 12/04/22 lisinopril 20 mg tablet 20 mg PO DAILY High Blood Pressure 10/07/19 12/04/22 allopurinol 300 mg tablet 300 mg PO DAILY gout 08/09/21 12/04/22 chlorthalidone 25 mg tablet 25 mg PO DAILY high blood 08/09/21 12/04/22 pressure/diuretic levothyroxine 88 mcg tablet 88 mcg PO DAILY thyroid 01/25/22 12/04/22 amlodipine 5 mg tablet 5 mg PO DAILY High Blood Pressure 12/04/22 12/04/22 carvedilol 25 mg tablet 25 mg PO BID High Blood Pressure 12/04/22 12/04/22 oxybutynin chloride 5 mg tablet 5 mg PO BID overactive bladder 12/04/22 12/04/22 Allergies Allergy/AdvReac Type Severity Reaction Status Date / Time NSAIDS (Non-Steroidal Allergy Unknown Kidneys Verified 11/07/22 08:51 Anti-Inflamma [facility] Disclaimer: The information contained in this section may have been updated after the patient was seen, as this information can be updated by other users. Medical History (Updated 12/04/22 @ 23:25 by GRETCHEN Lee) Cancer Chronic kidney disease GERD (gastroesophageal reflux disease) HLD (hyperlipidemia) Hypertension Kidney stone Renal disease TIA (transient ischemic attack) Type 2 diabetes mellitus Surgical History History of cholecystectomy History of total right hip replacement Family History Other Cancer Hypertension Social History Smoking Status: Never smoker alcohol intake: never substance use type: denies use current occupational status: retired Travel in the last 8 weeks: None household members: family housing: house ROS Obtained: Yes Systems reviewed as appropriate & no additional complaints except as documented Genitourinary Male Genitourinary: Reports nocturia, Reports urinary frequency and Reports urinary urgency Physical Exam General General appearance: alert and in no apparent distress Eye Eye exam: Present normal appearance and EOMI ENT ENT exam: Present normal exam Respiratory Respiratory exam: Present normal lung sounds bilaterally Cardiovascular Cardiovascular exam: Present regular rate and normal rhythm Abdominal Exam Abdominal exam: Present soft; Absent tenderness Extremities Exam Extremities exam: Present normal inspection Neurological Exam Neurological exam: Present alert and oriented X3 Psychiatric
[2022-12-04 21:54] LABS: Bacteria,Urine Trace /lpf; RBC,Urine Occasional #/hpf (0-3); Squamous Epithelial Cell,Urine Occasional #/hpf (0-5); WBC,Urine 20-50 #/hpf (0-3)
--- NOTE | 2022-12-04 21:54 | PC.NURSE ---
Rounded on patient, no concerns at this time.
[2022-12-04 22:01] VITALS: BP 152/65
[2022-12-04 22:04] VITALS: BP 170/60; PULSE 68; RESP 20; O2SAT 95
[2022-12-04 22:17] LABS: Basophils % 0.2 % (0.1-2.0); Eosinophils # 0.2 K/mm3 (0.0-0.4); Hematocrit 31.4 % (42.0-52.0); Hemoglobin 9.6 g/dL (14.1-18.0); Lymphocytes # 1.3 K/mm3 (0.7-4.5); Lymphocytes % 20.7 % (10-50); Mean Corpuscular HGB Conc 30.7 g/dL (31.8-35.4); Mean Corpuscular Hemoglobin 31.1 pg (27.0-31.2); Mean Corpuscular Volume 101.5 fl (80-94); Monocytes # 0.4 K/mm3 (0.1-1.0); Monocytes % 7.3 % (1.7-9.3); Neutrophils # 4.1 K/mm3 (1.8-7.8); Neutrophils % 68.7 % (37.0-80.0); Platelet Count 212 K/mm3 (142-424); Red Blood Count 3.09 M/mm3 (4.60-6.20)
[2022-12-04 22:21] LABS: Alanine Aminotransferase 22 U/L (12-78); Albumin Level 3.9 g/dl (3.5-5.0); Albumin/Globulin Ratio 1.7 (1.1-1.8); Alkaline Phosphatase 79 U/L (38-126); Anion Gap 13.9 mEq/L (5-15); Aspartate Amino Transferase 30 U/L (17-59); Bilirubin,Total 0.2 mg/dl (0.2-1.3); Blood Urea Nitrogen 41 mg/dl (9-20); Calcium 8.3 mg/dl (8.4-10.2); Carbon Dioxide 19 mmol/L (22.0-30.0); Chloride 112 mmol/L (98-107); Creatinine Clearance Estimated 18 mL/min (50-200); Estimated Glomerular Filt Rate 20 ml/min (>60); GFR (African American) 24 ML/MIN (>60); Globulin 2.3 g/dL (1.3-3.2); Glucose 188 mg/dl (74-100); Potassium 4.9 mmoL/L (3.5-5.1); Sodium 140 mmol/L (136-145); Total Protein,Serum 6.2 g/dl (6.3-8.2)
[2022-12-04 22:30] VITALS: BP 165/64; PULSE 72; RESP 18; O2SAT 96
--- NOTE | 2022-12-04 22:45 | PC.NURSE ---
Hospitalist in room with patient at this time.
[2022-12-04 22:48] LABS: Coronavirus 19, PCR Not Detected (NotDetected); Influenza A, PCR Not Detected (NotDetected); Influenza B, PCR Not Detected (NotDetected)
--- NOTE | 2022-12-04 22:53 | PC.NURSE ---
household refrigerator mechanic notified for bed assignment
--- NOTE | 2022-12-04 22:54 | PC.NURSE ---
Registration notified of admission. Pt assigned to room 212 for UTI to the Hospitalist. OBS
[2022-12-04 23:06] VITALS: BP 183/80; PULSE 75; RESP 17; TEMP 36.7; O2SAT 98
--- NOTE | 2022-12-04 23:12 | EXP.HP ---
History of Present Illness *Admission Date: 12/04/22 *Reason for visit:: UTI *History of present illness: 82 year old male that presents to ED for c/o dysuria for one week. PMHX of CKD, CAD, HTN, HLD, hypothyroidism, DM, and GERD. He only c/o dysuria. Denies fever, nausea, vomiting, diarrhea and abd pain. He presents to the ED with his daughter who is POA. The workup in the ED reveals WBC of 6, creatinine of 3, and UA positive for WBC. The ED physician called the hospitalist team for admission. The patient was given 1 g IV Rocephin in the ED. He will be admitted for further medical management. UA culture is pending. Will repeat BMP in the morning and hold medications related to causing a kidney injury. [facility] Disclaimer: The information contained in this section may have been updated after the patient was seen, as this information can be updated by other users. Medical History (Updated 12/04/22 @ 23:25 by GRETCHEN Lee) Cancer Chronic kidney disease GERD (gastroesophageal reflux disease) HLD (hyperlipidemia) Hypertension Kidney stone Renal disease TIA (transient ischemic attack) Type 2 diabetes mellitus Surgical History History of cholecystectomy History of total right hip replacement Family History Other Cancer Hypertension Social History Smoking Status: Never smoker alcohol intake: never substance use type: denies use current occupational status: retired Travel in the last 8 weeks: None household members: family housing: house Review of Systems Review of Systems Review of systems:: pertinent systems reviewed and negative unless documented below Constitutional Constitutional: Reports system reviewed and no additional complaints, except as documented Eyes Eyes: Reports system reviewed and no additional complaints, except as documented ENT Ears, Nose, Mouth, and Throat: Reports system reviewed and no additional complaints, except as documented *Cardiovascular Cardiovascular: Reports system reviewed and no additional complaints, except as documented *Respiratory Respiratory: Reports system reviewed and no additional complaints, except as documented *Gastrointestinal Gastrointestinal: Reports system reviewed and no additional complaints, except as documented *Genitourinary Genitourinary: Reports as per HPI, Reports difficulty urinating, Reports dysuria and Reports genital pain *Musculoskeletal Musculoskeletal: Reports system reviewed and no additional complaints, except as documented Integumentary/Breasts Skin/Breast: Reports system reviewed and no additional complaints, except as documented *Neurologic Neurologic: Reports system reviewed and no additional complaints, except as documented Meds Home Medications and Allergies Home Medications Medication Instructions Recorded Confirmed Type clopidogrel 75 mg tablet 75 mg PO HS ANTIPLATELET 08/14/17 12/04/22 History glimepiride 2 mg tablet 4 mg PO DAILY Diabetes 08/14/17 12/04/22 History krill oil 500 mg capsule 1 cap PO DAILY Supplement 08/14/17 12/04/22 History mecobalamin (vitamin B12) 1,000 1,000 mcg sublingual DAILY 08/14/17 12/04/22 History mcg disintegrating Supplement tablet,sublingual omeprazole 40 mg capsule,delayed 40 mg PO HS GERD 08/14/17 12/04/22 History release cholecalciferol (vitamin D3) 50 4,000 unit PO DAILY Supplement 10/31/17 12/04/22 History mcg (2,000 unit) capsule aspirin 81 mg tablet,delayed 81 mg PO DAILY CAD 07/29/18 12/04/22 History release (Adult Low Dose Aspirin) atorvastatin 20 mg tablet 20 mg PO HS Cholesterol 12/09/18 12/04/22 History vitamin B complex 1 each PO DAILY Supplement 04/29/19 12/04/22 History lisinopril 20 mg tablet 20 mg PO DAILY High Blood Pressure 10/07/19 12/04/22 History allopurinol 300 mg tablet 300 mg PO DAILY gout
--- NOTE | 2022-12-04 23:18 | PC.NURSE ---
called report to Luis DEMARCO on med-surg
[2022-12-04 23:27] LABS: Hemoglobin A1C 6.5 % (4.0-6.0)
--- NOTE | 2022-12-04 23:35 | PC.NURSE ---
Pt. arrived to floor by wheelchair at 23:30.
[2022-12-04 23:43] LABS: Thyroid Stimulating Hormone 1.27 uIU/mL (0.465-4.68)
[2022-12-05] VITALS: BP 177/79; PULSE 68; RESP 16; TEMP 36.6; O2SAT 98; BMI 20.4
[2022-12-05 04:00] VITALS: BP 150/72; PULSE 82; RESP 16; TEMP 36.6; O2SAT 98; BMI 20.3
[2022-12-05 05:42] LABS: POC Glucose,Bedside 77 (70-110)
[2022-12-05 05:57] LABS: Basophils % 0.4 % (0.1-2.0); Eosinophils # 0.2 K/mm3 (0.0-0.4); Eosinophils % 3.2 % (0.1-12.0); Hematocrit 32.3 % (42.0-52.0); Hemoglobin 9.9 g/dL (14.1-18.0); Lymphocytes # 1.5 K/mm3 (0.7-4.5); Lymphocytes % 26.4 % (10-50); Mean Corpuscular HGB Conc 30.8 g/dL (31.8-35.4); Mean Corpuscular Volume 100.7 fl (80-94); Monocytes # 0.6 K/mm3 (0.1-1.0); Monocytes % 9.9 % (1.7-9.3); Neutrophils # 3.4 K/mm3 (1.8-7.8); Neutrophils % 60.1 % (37.0-80.0); Platelet Count 184 K/mm3 (142-424); Red Blood Count 3.21 M/mm3 (4.60-6.20); White Blood Count 5.6 K/mm3 (4.8-10.8)
[2022-12-05 06:04] LABS: Chloride 114 mmol/L (98-107)
[2022-12-05 06:05] LABS: Potassium 4.4 mmoL/L (3.5-5.1); Sodium 145 mmol/L (136-145)
[2022-12-05 06:07] LABS: Alanine Aminotransferase 18 U/L (12-78); Alkaline Phosphatase 67 U/L (38-126); Anion Gap 12.4 mEq/L (5-15); Aspartate Amino Transferase 27 U/L (17-59); Bilirubin,Total < 0.1 mg/dl (0.2-1.3); Blood Urea Nitrogen 40 mg/dl (9-20); Carbon Dioxide 23 mmol/L (22.0-30.0); Creatinine Clearance Estimated 22 mL/min (50-200); Estimated Glomerular Filt Rate 25 ml/min (>60); GFR (African American) 30 ML/MIN (>60)
[2022-12-05 06:08] LABS: Albumin Level 3.6 g/dl (3.5-5.0); Albumin/Globulin Ratio 1.5 (1.1-1.8); Calcium 8.3 mg/dl (8.4-10.2); Chol/HDL Ratio 3.5 (1-3.5); Cholesterol 136 mg/dl (140-200); Globulin 2.4 g/dL (1.3-3.2); Glucose 66 mg/dl (74-100); HDL Cholesterol 39 mg/dl (40-60); Magnesium 1.5 mg/dl (1.6-2.3); Triglycerides 137 mg/dl (30-150); VLDL Cholesterol 27 mg/dL (0-40)
[2022-12-05 07:43] VITALS: BP 162/78; PULSE 72; RESP 18; TEMP 36.6; O2SAT 98
--- NOTE | 2022-12-05 09:37 | P.CONPHA_ITS ---
Pharmacy Intervention Comments: Patients home medications reviewed and verified with patient and patient's daughter/wound care specialist. -Timi Shepard, Pharm Student
--- NOTE | 2022-12-05 09:37 | HMH.PHAINT1 ---
Pharmacy Intervention Comments: Patients home medications reviewed and verified with patient and patient's daughter/healthcare sales representative. -Timi Shepard, Pharm Student
[2022-12-05 11:21] LABS: POC Glucose,Bedside 124 (70-110)
--- NOTE | 2022-12-05 12:31 | EXP.DC.SUM ---
General Admission date:: 12/04/22 Discharge date: 12/05/22 HPI HPI HPI: 82 year old male that presents to ED for c/o dysuria for one week. PMHX of CKD, CAD, HTN, HLD, hypothyroidism, DM, and GERD. He only c/o dysuria. Denies fever, nausea, vomiting, diarrhea and abd pain. He presents to the ED with his daughter who is POA. The workup in the ED reveals WBC of 6, creatinine of 3, and UA positive for WBC. The ED physician called the hospitalist team for admission. The patient was given 1 g IV Rocephin in the ED. He will be admitted for further medical management. UA culture is pending. Will repeat BMP in the morning and hold medications related to causing a kidney injury. Hospital Course Hospital Course Hospital Course: The patient was treated with Rocephin and fluids. The day after admission the patient stated that his dysuria had resolved. His kidney function also improved with creatinine level decreasing from 3 to 2.4. baseline creatinine has been 1.8 to 2.5. His lisinopril was held during the hospital course but was resumed at discharge. He will f/u with pcp in 1 week and at that time need a bmp to check kidney function. He will be discharged with 5 days of ciprofloxacin. Exam Data for Last 24 hours Vital signs and Labs for Last 24 Hours: Temp Pulse Resp BP Pulse Ox O2 Del Method 97.9 F 72 18 162/78 H 98 Room Air 12/05/22 07:43 12/05/22 07:43 12/05/22 07:43 12/05/22 07:43 12/05/22 07:43 12/05/22 10:52 Laboratory Results - last 24 hr 12/04/22 21:10: Urine Color Yellow, Urine Appearance Sl cloudy, Urine pH 5.5, Ur Specific [place] >= 1.030, Urine Protein 3+, Urine Glucose (UA) Negative, Urine Ketones Trace, Urine Blood 1+, Urine Nitrate Negative, Urine Bilirubin 1+ A, Urine Urobilinogen 0.2, Ur Leukocyte Esterase 1+ A, Urine RBC Occasional, Urine WBC 20-50, Ur Squamous Epith Cells Occasional, Urine Bacteria Trace 12/04/22 22:04: WBC 6.0, RBC 3.09 L, Hgb 9.6 L, Hct 31.4 L, MCV 101.5 H, MCH 31.1, MCHC 30.7 L, RDW 16.0, Plt Count 212, MPV 8.0, Neut % (Auto) 68.7, Lymph % (Auto) 20.7, [place]gg % (Auto) 7.3, Eos % (Auto) 3.0, Baso % (Auto) 0.2, Neut # (Auto) 4.1, Lymph # (Auto) 1.3, [place]gg # (Auto) 0.4, Eos # (Auto) 0.2, Baso # (Auto) 0.0, Sodium 140, Potassium 4.9, Chloride 112 H, Carbon Dioxide 19 L, Anion Gap 13.9, BUN 41 H, Creatinine 3.00 H, Estimated Creat Clear 18, Estimated GFR 20 L, Est GFR ( Amer) 24 L, Glucose 188 H, Hemoglobin A1c 6.5 H, Calcium 8.3 L, Total Bilirubin 0.2, AST 30, ALT 22, Alkaline Phosphatase 79, Total Protein 6.2 L, Albumin 3.9, Globulin 2.3, Albumin/Globulin Ratio 1.7, TSH 1.27 12/04/22 22:43: SARS-CoV-2 (PCR) Not detected, Influenza A Untype (PCR) Not detected, Influenza Type B (PCR) Not detected 12/05/22 05:25: WBC 5.6, RBC 3.21 L, Hgb 9.9 L, Hct 32.3 L, MCV 100.7 H, MCH 31.0, MCHC 30.8 L, RDW 16.0, Plt Count 184, MPV 8.0, Neut % (Auto) 60.1, Lymph % (Auto) 26.4, [place]gg % (Auto) 9.9 H, Eos % (Auto) 3.2, Baso % (Auto) 0.4, Neut # (Auto) 3.4, Lymph # (Auto) 1.5, Gregg # (Auto) 0.6, Eos # (Auto) 0.2, Baso # (Auto) 0.0, Sodium 145, Potassium 4.4, Chloride 114 H, Carbon Dioxide 23, Anion Gap 12.4, BUN 40 H, Creatinine 2.50 H, Estimated Creat Clear 22, Estimated GFR 25 L, Est GFR ( Amer) 30 L D, Glucose 66 L D, Calcium 8.3 L, Magnesium 1.5 L, Total Bilirubin < 0.1 L, AST 27, ALT 18, Alkaline Phosphatase 67, Total Protein 6.0 L, Albumin 3.6, Globulin 2.4, Albumin/Globulin Ratio 1.5, Triglycerides 137, Cholesterol 136 L, LDL Cholesterol Direct 52.80 L, VLDL Cholesterol 27, HDL Cholesterol 39 L, Cholesterol/HDL Ratio 3.5 12/05/22 05:28: POC Glucose 77 12/05/22 11:13: POC Glucose 124 H I & O for Last 24 hours: Intake & Output 12/02/22 12/03/22 12/04/22 12/05/22 23:59 23:59 23:59 23:59 Intake Total 50 / 50 580 / 580 Output Total 125 / 125 Balance 50 / 50 455 / 455 Weight 66.224 kg 65.862 kg Constitutional Constitutional: no acute distress *Routine HEENT Exam Head: Present normocephalic Ey
--- NOTE | 2022-12-05 12:39 | HMH.PHAINT1 ---
Pharmacy Intervention Comments: Patient's discharge medication discussed with patient and patients daughter/patient registration representative: - Ciprofloxacin (Antibiotic, take until completion, take with food to avoid upset stomach) Patient had no further questions at this time. -Timi Shepard, Pharm Student
--- NOTE | 2022-12-06 13:30 | CARE MANAGER ---
Contacted patient related to hospital discharge. He states he picked up his antibiotic and denies questions. He has appt. with Dr. Ramos next Saturday. DAV Marion
== END 2022-12-05 13:17 | disposition home or self-care (01) ==
LOC: ER 21:08 → 2ND 23:00
PROVIDERS: Nurse Practitioner Critical Care Medicine; Admitting Provider Internal Medicine; Emergency Provider Emergency Medicine; PCP Family Medicine; Visit Provider Internal Medicine
DX: N39.0 Urinary tract infection, site not specified (principal); N18.9 Chronic kidney disease, unspecified; E11.22 Type 2 diabetes mellitus with diabetic chronic kidney disease; I12.9 Hypertensive chronic kidney disease with stage 1 through stage 4 chronic kidney disease, or unspecified chronic kidney disease; I25.10 Atherosclerotic heart disease of native coronary artery without angina pectoris; E78.5 Hyperlipidemia, unspecified; E03.9 Hypothyroidism, unspecified; K21.9 Gastro-esophageal reflux disease without esophagitis; N17.9 Acute kidney failure, unspecified; Z79.899 Other long term (current) drug therapy; Z79.02 Long term (current) use of antithrombotics/antiplatelets; Z79.84 Long term (current) use of oral hypoglycemic drugs
CPT/HCPCS: G0378; 80053; 80061; 81001; 82962; 83036; 83735; 84443; 85025; 87086; 87088; 87186; 87636; 99285; J0696; J3475

== ENCOUNTER → 2022-12-10 06:56 | Outpatient (CLI) | payer MEDICARE, SELFPAY ==
[2022-12-10 08:11] LABS: Albumin Level 4.2 g/dl (3.5-5.0); Anion Gap 13.5 mEq/L (5-15); Blood Urea Nitrogen 43 mg/dl (9-20); Calcium 8.7 mg/dl (8.4-10.2); Carbon Dioxide 23 mmol/L (22.0-30.0); Chloride 102 mmol/L (98-107); Estimated Glomerular Filt Rate 29 ml/min (>60); GFR (African American) 35 ML/MIN (>60); Glucose 126 mg/dl (74-100); Phosphorous 3.8 mg/dl (2.5-4.5); Potassium 4.5 mmoL/L (3.5-5.1); Sodium 134 mmol/L (136-145)
== END ==
PROVIDERS: PCP Family Medicine; Visit Provider Internal Medicine
DX: N18.4 Chronic kidney disease, stage 4 (severe) (principal); E87.5 Hyperkalemia; R79.89 Other specified abnormal findings of blood chemistry
CPT/HCPCS: 36415; 80048; 80069

== ENCOUNTER → 2023-02-21 10:12 | Outpatient (CLI) | payer MEDICARE, SELFPAY ==
[2023-02-21 11:15] LABS: Albumin Level 4.5 g/dl (3.5-5.0); Anion Gap 15.1 mEq/L (5-15); Blood Urea Nitrogen 29 mg/dl (9-20); Calcium 8.7 mg/dl (8.4-10.2); Carbon Dioxide 25 mmol/L (22.0-30.0); Chloride 109 mmol/L (98-107); Estimated Glomerular Filt Rate 31 ml/min (>60); GFR (African American) 37 ML/MIN (>60); Glucose 131 mg/dl (74-100); Phosphorous 4.1 mg/dl (2.5-4.5); Potassium 4.1 mmoL/L (3.5-5.1); Sodium 145 mmol/L (136-145)
== END ==
PROVIDERS: PCP Family Medicine; Visit Provider Physician Assistant
DX: E87.5 Hyperkalemia (principal); N18.4 Chronic kidney disease, stage 4 (severe)
CPT/HCPCS: 36415; 80069

== ENCOUNTER → 2023-03-27 06:47 | Outpatient (CLI) | payer MEDICARE, SELFPAY ==
[2023-03-27 07:19] LABS: Microscopic, Urine URINE MICROSCOPIC (MICROSCOPIC)
[2023-03-27 07:37] LABS: Basophils % 0.3 % (0.1-2.0); Eosinophils # 0.2 K/mm3 (0.0-0.4); Eosinophils % 2.5 % (0.1-12.0); Hematocrit 35.9 % (42.0-52.0); Hemoglobin 11.8 g/dL (14.1-18.0); Lymphocytes # 1.2 K/mm3 (0.7-4.5); Lymphocytes % 19.2 % (10-50); Mean Corpuscular HGB Conc 32.8 g/dL (31.8-35.4); Mean Corpuscular Hemoglobin 34.4 pg (27.0-31.2); Mean Corpuscular Volume 104.7 fl (80-94); Mean Platelet Volume 8.5 fl (7.4-10.4); Monocytes # 0.5 K/mm3 (0.1-1.0); Monocytes % 7.8 % (1.7-9.3); Neutrophils # 4.4 K/mm3 (1.8-7.8); Neutrophils % 70.3 % (37.0-80.0); Platelet Count 198 K/mm3 (142-424); Red Blood Count 3.43 M/mm3 (4.60-6.20); Red Cell Distribution Width 14.2 % (11.5-17.5); White Blood Count 6.2 K/mm3 (4.8-10.8)
[2023-03-27 07:38] LABS: Appearance,Urine CLEAR (Clear); Blood, Urine Negative (Negative); Color,Urine YELLOW (Yellow); Glucose,Urine (UA) Negative (Negative); Ketones,Urine Negative (Negative); Leukocyte Esterase,Urine Negative (Negative); Nitrate,Urine Negative (Negative); PH,Urine 5.5 (5.0-8.5); Protein,Urine 3+ (Negative); Specific Gravity, Urine >= 1.030 (1.005-1.030); Urobilinogen,Urine 0.2 EU/dl (0.2)
[2023-03-27 08:51] LABS: Bilirubin,Urine 1+ (Negative)
[2023-03-27 09:04] LABS: Albumin Level 4.2 g/dl (3.5-5.0); Anion Gap 13.5 mEq/L (5-15); Blood Urea Nitrogen 28 mg/dl (9-20); Calcium 8.6 mg/dl (8.4-10.2); Carbon Dioxide 25 mmol/L (22.0-30.0); Chloride 104 mmol/L (98-107); Estimated Glomerular Filt Rate 34 ml/min (>60); GFR (African American) 41 ML/MIN (>60); Glucose 143 mg/dl (74-100); Phosphorous 3.9 mg/dl (2.5-4.5); Potassium 3.5 mmoL/L (3.5-5.1); Sodium 139 mmol/L (136-145); Uric Acid 6.5 mg/dl (3.5-8.5)
[2023-03-27 09:14] LABS: Intact Parathyroid Hormone 145.3 pg/mL (7.5-53.5)
[2023-03-27 09:42] LABS: Bacteria,Urine Trace /lpf; Squamous Epithelial Cell,Urine Occasional #/hpf (0-5); WBC,Urine Occasional #/hpf (0-3)
[2023-03-27 14:11] LABS: Creatinine,Urine Random 267 mg/dL (Not Estab.)
== END ==
PROVIDERS: PCP Family Medicine; Visit Provider Physician Assistant
DX: N18.31 Chronic kidney disease, stage 3a (principal); E55.9 Vitamin D deficiency, unspecified; Z68.20 Body mass index [BMI] 20.0-20.9, adult; E66.9 Obesity, unspecified
CPT/HCPCS: 36415; 80048; 80069; 81001; 82306; 82570; 83970; 84155; 84550; 85025

== ENCOUNTER 2023-07-08 06:39 | Outpatient (CLI) | payer MEDICARE, SELFPAY ==
[2023-07-08 08:26] LABS: Chloride 105 mmol/L (98-107); Potassium 3.6 mmoL/L (3.5-5.1); Sodium 141 mmol/L (136-145)
[2023-07-08 08:27] LABS: Albumin Level 3.8 g/dl (3.5-5.0)
[2023-07-08 08:29] LABS: Anion Gap 11.6 mEq/L (5-15); Blood Urea Nitrogen 38 mg/dl (9-20); Carbon Dioxide 28 mmol/L (22.0-30.0); Estimated Glomerular Filt Rate 26 ml/min (>60); GFR (African American) 32 ML/MIN (>60); Phosphorous 4.5 mg/dl (2.5-4.5)
[2023-07-08 08:30] LABS: Calcium 7.5 mg/dl (8.4-10.2); Glucose 129 mg/dl (74-100)
== END 2023-07-08 23:59 ==
LOC: LAB 06:41
PROVIDERS: PCP Family Medicine; Visit Provider Physician Assistant
DX: E87.5 Hyperkalemia (principal); N18.4 Chronic kidney disease, stage 4 (severe)
CPT/HCPCS: 36415; 80069

== ENCOUNTER 2023-09-09 12:08 | Outpatient (CLI) | payer MEDICARE, SELFPAY | END 2023-09-09 23:59 | LOC: LAB.DROPOF 09-10 12:09 | PROVIDERS: PCP Nurse Practitioner; Visit Provider Nurse Practitioner | DX: M79.675 Pain in left toe(s); L60.0 Ingrowing nail; B96.89 Other specified bacterial agents as the cause of diseases classified elsewhere | CPT/HCPCS: 87070; 87205 ==

== ENCOUNTER 2023-10-28 15:22 | Outpatient (CLI) | payer MEDICARE, SELFPAY ==
[2023-10-28 15:29] LABS: Microscopic, Urine URINE MICROSCOPIC (MICROSCOPIC)
[2023-10-28 17:03] LABS: Hematocrit 30.9 % (42.0-52.0); Hemoglobin 9.8 g/dL (14.1-18.0); Mean Corpuscular HGB Conc 31.7 g/dL (31.8-35.4); Mean Corpuscular Hemoglobin 33.9 pg (27.0-31.2); Mean Corpuscular Volume 106.9 fl (80-94); Platelet Count 271 K/mm3 (142-424); Red Cell Distribution Width 15.3 % (11.5-17.5); White Blood Count 7.6 K/mm3 (4.8-10.8)
[2023-10-28 17:43] LABS: Albumin Level 4.1 g/dl (3.5-5.0); Anion Gap 16.2 mEq/L (5-15); Blood Urea Nitrogen 43 mg/dl (9-20); Calcium 8.2 mg/dl (8.4-10.2); Carbon Dioxide 20 mmol/L (22.0-30.0); Chloride 110 mmol/L (98-107); Estimated Glomerular Filt Rate 21 ml/min (>60); GFR (African American) 25 ML/MIN (>60); Glucose 71 mg/dl (74-100); Phosphorous 5.5 mg/dl (2.5-4.5); Potassium 4.2 mmoL/L (3.5-5.1); Sodium 142 mmol/L (136-145)
[2023-10-28 18:29] LABS: Creatinine,Urine Random 91 mg/dL (Not Estab.)
[2023-10-28 18:33] LABS: Appearance,Urine CLEAR (Clear); Bilirubin,Urine Negative (Negative); Blood, Urine Negative (Negative); Color,Urine YELLOW (Yellow); Glucose,Urine (UA) Negative (Negative); Ketones,Urine Negative (Negative); Leukocyte Esterase,Urine Negative (Negative); Nitrate,Urine Negative (Negative); Protein,Urine 3+ (Negative); Specific Gravity, Urine 1.025 (1.005-1.030); Urobilinogen,Urine 0.2 EU/dl (0.2)
[2023-10-28 19:00] LABS: RBC,Urine Occasional #/hpf (0-3)
== END 2023-10-28 23:59 | disposition home or self-care (01) ==
LOC: LAB 15:23
PROVIDERS: PCP Family Medicine; Visit Provider Internal Medicine Nephrology
DX: N17.9 Acute kidney failure, unspecified (principal)
CPT/HCPCS: 36415; 80069; 81001; 82570; 84156; 85014; 85018; 85048; 85049

== ENCOUNTER 2023-12-02 06:41 | Outpatient (CLI) | payer MEDICARE, SELFPAY ==
[2023-12-03 11:14] LABS: Complement C3 126 mg/dL (82-167)
[2023-12-03 16:23] LABS: Immunoglobulin A, Qn 113 mg/dL (61-437); Immunoglobulin G, Qn 754 mg/dL (603-1613); Immunoglobulin M, Qn 65 mg/dL (15-143)
[2023-12-04 15:12] LABS: Antinuclear Antibodies, IFA Negative (.)
[2023-12-07 09:11] LABS: Miscellaneous Test SCANNED IMAGE
[2024-01-13 11:07] LABS: Albumin 3.6
[2024-01-13 11:08] LABS: Alpha-1-Globulin 0.2; Alpha-2-Globulin 0.8
[2024-01-13 11:09] LABS: Gamma Globulin 0.7
[2024-01-13 11:10] LABS: Free Lambda Lt Chains 39.3; PDF SCANNED IMAGE
== END 2023-12-02 23:59 | disposition home or self-care (01) ==
LOC: LAB 06:42
PROVIDERS: PCP Family Medicine; Visit Provider Internal Medicine Nephrology
DX: R80.9 Proteinuria, unspecified (principal)
CPT/HCPCS: 36415; 82784; 83883; 84155; 84165; 86038; 86161; 86334

== ENCOUNTER 2024-03-03 06:25 | Outpatient (CLI) | payer MEDICARE, SELFPAY ==
[2024-03-03 07:00] LABS: Microscopic, Urine URINE MICROSCOPIC (MICROSCOPIC)
[2024-03-03 07:25] LABS: Hematocrit 31.9 % (42.0-52.0); Hemoglobin 10.1 g/dL (14.1-18.0); Mean Corpuscular HGB Conc 31.6 g/dL (31.8-35.4); Mean Corpuscular Hemoglobin 32.5 pg (27.0-31.2); Mean Corpuscular Volume 103.1 fl (80-94); Platelet Count 150 K/mm3 (142-424); Red Cell Distribution Width 13.5 % (11.5-17.5); White Blood Count 6.8 K/mm3 (4.8-10.8)
[2024-03-03 08:22] LABS: Chloride 109 mmol/L (98-107)
[2024-03-03 08:23] LABS: Albumin Level 3.7 g/dl (3.5-5.0); Sodium 138 mmol/L (136-145)
[2024-03-03 08:25] LABS: Blood Urea Nitrogen 40 mg/dl (9-20); Estimated Glomerular Filt Rate 24 ml/min (>60); GFR (African American) 29 ML/MIN (>60)
[2024-03-03 08:26] LABS: Calcium 6.9 mg/dl (8.4-10.2); Carbon Dioxide 19 mmol/L (22.0-30.0); Glucose 106 mg/dl (74-100); Iron 60 ug/dL (49-181); Phosphorous 4.5 mg/dl (2.5-4.5)
[2024-03-03 08:35] LABS: Total Iron Binding Capacity 221 ug/dL (261-462)
[2024-03-03 08:38] LABS: Appearance,Urine CLEAR (Clear); Bilirubin,Urine Negative (Negative); Blood, Urine 1+ (Negative); Color,Urine YELLOW (Yellow); Glucose,Urine (UA) Negative (Negative); Ketones,Urine Negative (Negative); Leukocyte Esterase,Urine Negative (Negative); Nitrate,Urine Negative (Negative); Protein,Urine 2+ (Negative); Specific Gravity, Urine 1.015 (1.005-1.030); Urobilinogen,Urine 0.2 EU/dl (0.2)
[2024-03-03 08:54] LABS: Creatinine,Urine Random 35 mg/dL (Not Estab.)
[2024-03-03 08:59] LABS: WBC,Urine Occasional #/hpf (0-3)
[2024-03-03 09:01] LABS: Ferritin 173 ng/ml (17.9-464)
[2024-03-03 09:21] LABS: Intact Parathyroid Hormone 187.7 pg/mL (7.5-53.5)
== END 2024-03-03 23:59 | disposition home or self-care (01) ==
LOC: LAB 06:28
PROVIDERS: PCP Family Medicine; Visit Provider Physician Assistant
DX: N18.4 Chronic kidney disease, stage 4 (severe) (principal); I77.9 Disorder of arteries and arterioles, unspecified
CPT/HCPCS: 36415; 80069; 81001; 82306; 82570; 82728; 83540; 83550; 83970; 84156; 85027

== ENCOUNTER 2024-06-18 12:05 | Outpatient (CLI) | payer MEDICARE, SELFPAY ==
[2024-06-18 12:18] LABS: Microscopic, Urine URINE MICROSCOPIC (MICROSCOPIC)
[2024-06-18 12:49] LABS: Hematocrit 26.4 % (42.0-52.0); Hemoglobin 8.3 g/dL (14.1-18.0); Mean Corpuscular HGB Conc 31.4 g/dL (31.8-35.4); Mean Corpuscular Hemoglobin 30.4 pg (27.0-31.2); Mean Corpuscular Volume 96.7 fl (80-94); Platelet Count 220 K/mm3 (142-424); Red Blood Count 2.73 M/mm3 (4.60-6.20); Red Cell Distribution Width 15.9 % (11.5-17.5); White Blood Count 7.5 K/mm3 (4.8-10.8)
[2024-06-18 13:01] LABS: Albumin Level 3.3 g/dl (3.5-5.0); Anion Gap 17.8 mEq/L (5-15); Blood Urea Nitrogen 71 mg/dl (9-20); Calcium 6.6 mg/dl (8.4-10.2); Carbon Dioxide 16 mmol/L (22.0-30.0); Chloride 110 mmol/L (98-107); Estimated Glomerular Filt Rate 13 ml/min (>60); GFR (African American) 15 ML/MIN (>60); Glucose 146 mg/dl (74-100); Phosphorous 7.8 mg/dl (2.5-4.5); Potassium 4.8 mmoL/L (3.5-5.1); Sodium 139 mmol/L (136-145)
[2024-06-18 13:35] LABS: Appearance,Urine CLEAR (Clear); Bilirubin,Urine Negative (Negative); Blood, Urine 1+ (Negative); Color,Urine YELLOW (Yellow); Glucose,Urine (UA) Negative (Negative); Ketones,Urine Negative (Negative); Leukocyte Esterase,Urine Negative (Negative); Nitrate,Urine Negative (Negative); PH,Urine 5.5 (5.0-8.5); Protein,Urine 3+ (Negative); Specific Gravity, Urine >= 1.030 (1.005-1.030); Urobilinogen,Urine 0.2 EU/dl (0.2)
[2024-06-18 14:01] LABS: Amorphous Sediment,Urine Trace /lpf; Bacteria,Urine Trace /lpf; Fine Granular Casts,Urine Occasional #/lpf (0); Squamous Epithelial Cell,Urine Occasional #/hpf (0-5); WBC,Urine Occasional #/hpf (0-3)
[2024-06-18 14:09] LABS: Creatinine,Urine Random 132 mg/dL (Not Estab.)
== END 2024-06-18 23:59 | disposition home or self-care (01) ==
LOC: LAB 12:07
PROVIDERS: PCP Family Medicine; Visit Provider Physician Assistant
DX: N18.4 Chronic kidney disease, stage 4 (severe) (principal); I10 Essential (primary) hypertension; E11.9 Type 2 diabetes mellitus without complications; L57.0 Actinic keratosis
CPT/HCPCS: 36415; 80069; 81001; 82570; 84156; 85027

== ENCOUNTER 2024-11-24 17:49 | Emergency (ER) | payer MEDICARE, SELFPAY ==
--- OUTSIDE RECORDS SUMMARY | 2024-09-25 11:00 | XMS_ITS | Encounter Summary ---
Author Organization [facility] Address [address] [place] [address] Care Team Providers Care Freight Sales Broker Name Role Phone Oz Ramos MD Primary Care Provider [phone] John Joseph MD Unavailable [phone] Cheyenne Mitchell APRN, DNP Unavailable [phone] Encounter Details Date Type Department Care Team (Late st Contact Info) Description 09/25/2024 11:00 AM EDT Pre-Admission Testing [facility] Pre-op Clinic [address] [place] [address] Anesthesia Record Procedure Summary Procedure Name Responsible Anesthesiologist Anesthesia Start Time Anesthesia Stop Time SUSPENSION MICROLARYNGOSCOPY WITH LYSIS OF WEB, FLEXIBLE ESOPHAGOSCOPY WITH BALLOON DILATION (Bilateral) Casie Baker MD 10/07/24 1334 10/07/24 1437 Events Date Time Event Comment 10/07/2024 1245 1334 An Start The patient was reevaluated immediately before sedation and remains eligible for anesthesia plan. 1334 In Room 1334 An Start Data 1340 An Induction The patient was reevaluated immediately before moderate or deep sedation use and before anesthesia induction. 1357 An Intubation 1358 Anesthesia Ready 1359 Proc Start 1423 Proc Fin 1430 An Extubation 1433 an stop data 1433 Out of Room 1437 Handoff to Receiving I compl eted my handoff to the receiving clinician during which we: 1. Identified the patient 2. Identified the responsible provider 3. Reviewed the pertinent medical history 4. Discussed the surgical course 5. Reviewed intra-op anesthesia management and issues during anesthesia 6. Set expectations for post-procedure period 7. Allowed opportunity for questions and acknowledgement of understanding. 1437 An Stop Meds * Agents No agents on file. * Blood No blood administrations on file. Lines, Drains, and Airways Type Details Placement Removal Wound 09/11/24; 1156; N; Y es; Surgical; Open Surg; Arm; Left, Upper 09/11/24 1156 by May Rizo RN Wound 10/07/24; 1428; N; Y es; Surgical; (dilation); Inner 10/07/24 1428 by Leilani Shipman Peripheral IV Placement Date: 09/24 09/18; Placement Time: 1242; Catheter Size: 22 G; Orientation: Posterior, Right; Location: Hand; Site Prep: Chlorhexidine ; Local Anesth: None; Technique: Anatomical landmarks; Insertion Attempts: 1; Patient Tolerance: Tolerated well; Removal Date: 10/07/24; Removal Time: 1454 10/07/24 1242 by Jolene Terry RN 10/07/24 1454 by Ester Mcwilliams RN ETT Placement Date: 09/24 09/18; Placement Time: 1357 (created via procedure documentation); Mask Ventilation: 2 (2 handed mask + oral airway); Technique: Video laryngoscopy; Type: ETT - single; Single Lumen Tube Size: 6 mm; Cuffed: Yes; Laryngoscope: (LoPro S3); Location: Oral; Grade View: Grade IIb; Placement Verification: Auscultation, Capnometry; Airway Comments: Difficult intubation due to very limited neck mobility in setting of prior neck radiation. Grade 2b view with VL LoPro S3. Very anterior chords. Difficulty passing Bougie due to anterior nature of cords. Ultimately able to pass Bougie and 6.0 IMPACT HAMMER OPERATOR tube passed over. Dentition in preoperative condition. ; Placed by: Resident ; Removal Date: 10/07/24; Removal Time: 1430 10/07/24 1357 by Leo Marinelli 10/07/24 1430 by Leo Marinelli documented in this encounter Social History Tobacco Use Types Packs/Day Years Used Date Smoking Tobacco: Never Smokeless Tobacco: Never Alcohol Use Standard Drinks/Week Comments Never 0 (1 standard drink = 0.6 oz pur e alcohol) Humiliation, Afraid, Rape, and Kick questionnair e Answer Date Recorded Within the last year, have y ou been afraid of your partner or ex-partner? No 06/19/2024 Within the last year, have y ou been humiliated or emotionally abused in other ways by your partner or ex-partner? No Within the last year, have y ou been kicked, hit, slapped, or otherwise physically hurt by your partner or ex-partner? No 06/19/2024 Within the last year, have y ou been raped or forced to have any kind of sexual activity by your partner or ex-partner? No 06/19/2024 PHQ-2 Answer Date Recorded Patient Health Questionnaire-2 Score 0 08/26/2024 Hunger Vital Sign Answer Date Recorded Within the past 12 months, y ou worried that your food would run out before you got the money to buy more. Never true 06/19/19 25 Within the past 12 months, t he food you bought just didn't last and you didn't have money to get more. Never true 06/19/2024 PRAPARE - Transportation Answer Date Re corded In the past 12 months, has l ack of transportation kept you from medical appointments or from getting medications? No 05/28 In the past 12 months, has l ack of transportation kept you from meetings, work, or from getting things needed for daily living? No 06/19/2024 PHQ-9 Answer Date Recorded Patient Health Questionnaire-9 Score 0 08/26/2024 Housing Stability Vital Sign Answer Heath e Recorded In the last 12 months, was t here a time when you were not able to pay the mortgage or rent on time? No 06/19/2024 In the past 12 months, how m any times have you moved where you were living? 1 06/19/2024 At any time in the past 12 m [facility], were you homeless or living in a [facility] (including now)? No 06/19/2024 CAGE ASSESSMENT Answer Date Recorded Cage unable to access Not on file 06/18/2024 Cage max number of drinks Not on file 2024 Cage Beverages a week Not on file 06/18/2024 Have you ever felt you should CUT down on your d rinking? 0 06/18/2024 Have you been ANNOYED by people criticizing your drinking? 0 06/18/2024 Have you felt GUILTY about your drinking? 0 06/18/2024 Have you had a drink first t jeff in the morning (EYE-PHLEBOTOMY DIRECTOR) to steady your nerves or to get rid of a hangover? 0 06/18/2024 CAGE Questionnaire Score 0 025 Utilities Answer Date Recorded In the past 12 months has th e [employer], gas, oil, or water company threatened to shut off services in your home? No 06/19/2024 PHQ-2A Answer Date Recorded Patient Health Questionnaire-2 Score 0 10/10/2022 Sex and Gender Information Value Date Recorded Sex Assigned at Male 06/26/2024 2:30 PM EST Legal Sex Male 8:08 PM EDT Gender Identity Not on file Sexual Orientation Not on file documented as of this encounter Plan of Treatment Upcoming Encounters Date Type Department Care Team (Late st Contact Info) Description 11/26/2024 10:00 AM EDT Office Visit [facility] Comprehensive Vascular Clinic [address] [place] [address] Carolee Gr MD [address] [facility] [address] [place] [address] 05/03/2025 8:00 AM EST Appointment [facility] Ultrasound [address] [place] [phone] 2025 1:00 PM EST Office Visit [facility] Otolaryngology [address] [place] [address] Rudy Andersen MD [address] [place] [id number] 05/13/2025 8:10 AM EST Office Visit [facility] Urology [address] [place] [address] MitchellCheyenne APRN, DNP [address] [place] [address] documented as of this encounter Visit Diagnoses Not on filedocumented in this encounter Additional Health Concerns Assessment Noted Time PHQ-9 Depression Total Score: 0 08/27/19 25 12:37 PM EDT A fall risk assessment has been complete d for the patient 08/26/2024 12:38 PM EDT A Body Mass Index follow-up plan has been documented for the patient 09/25/2024 6:16 AM EDT documented as of this encounter Care Teams Freight Sales Broker Relationship Specialty Start Date End Date Oz Ramos MD [address] [place] [address] [address] [place] [address] PCP - General 10/07/20 John Joseph MD [address] [place] [address] Consulting Physician Urology 02/04/23 Cheyenne Mitchell APRN, DEVI [address] [place] [phone] Nurse Practitioner Urology 05/13/24 documented as of this encounter
--- OUTSIDE RECORDS SUMMARY | 2024-10-07 11:21 | XMS_ITS | Encounter Summary ---
Author Organization [facility] Address [address] [place] [address] Care Team Providers Care Waiter/Waitress Third Class Name Role Phone Oz Ramos MD Primary Care Provider [phone] John Joseph MD Unavailable [phone] Cheyenne Mitchell APRN, [facility] Unavailable [phone] Reason for Visit * Auth/Cert (Routine) Specialty Diagnoses / Procedures Referred By Titi t Referred To Contact Diagnoses Dysphagia, unspecified type Dysphagia, unspecified type [R13.10] Procedures ID LARYNGOSCOPY,DIRCT,OP SCOP,EXC TUMR ID LARYNGOSCOPY,DIRECT,SCOPE,INJ CORDS ID ESOPHAGOSCOPY FLEX BALLOON DILAT <30 MM DIAM ID DEXAMETHASONE SODIUM PHOS SUSPENSION MICROLARYNGOSCOPY WITH LYSIS OF WEB, INJECTION DECARDON 10mg/ml 1 ml TO PHARYNX/ESOPHAGEAL STRICTURE, FLEXIBLE ESOPHAGOSCOPY WITH BALLOON DILATION . Rudy Andersen MD [address] [facility] [address] [place] [address] Phone: tel: fax: [facility] [address] [place] [address] Phone: tel: Referral ID Status Reason Start Date Expiration Date Visits Re quested Visits Authorized [id number] 1 1 Encounter Details Date Type Department Care Team (Latest Contact Info) Description 10/07/2024 11:21 AM EDT - 10/07/2024 1:10 PM EDT Hospital Encounter [facility] [address] [place] [address] Rudy Andersen MD [address] [place] [id number] Dysphagia, unspecified type Discharge Disposition: Home or Self Care Social History Tobacco Use Types Packs/Day Years [...] any time in the past 12 m [facility], were you homeless or living in a jail (including now)? No 06/19/2024 CAGE ASSESSMENT Answer [...] drink first t jeff in the morning (EYE-SCRAP CHARGER) to steady your nerves or to get rid of a hangover? 0 06/18/2024 CAGE Questionnaire Score 0 025 Utilities Answer Date Recorded In the past 12 months has th e Tattva, gas, oil, or water Workstir threatened to shut off services in your home? No 06/19/2024 PHQ-2A Answer Date Recorded Patient Health Questionnaire-2 Score 0 10/10/2022 Sex and Gender Information Value Date Recorded Sex Assigned at Male 06/26/2024 2:30 PM EST Legal Sex Male 8:08 PM EDT Gender Identity Not on file Sexual Orientation Not on file documented as of this encounter Last Filed Vital Signs Vital Sign Reading Time Taken Comments Blood Pressure 87/75 10/07/2024 2:55 PM EDT Pulse 63 10/07/2024 2:55 PM EDT Temperature 36.6 C (97.9 F) 10/07/2024 2:50 PM EDT Respiratory Rate 10 10/07/2024 2:55 PM EDT Oxygen Saturation 94% 10/07/2024 2:55 PM EDT Inhaled Oxygen Concentration - - Weight 58.4 kg (128 lb 12 oz) 10/07/2024 11:59 A M EDT Height 180.3 cm (5' 11 ) 10/07/2024 11:59 AM EDT Body Mass Index 17.96 10/07/2024 11:59 AM EDT documented in this encounter Functional Status * Calculated C-SSRS Risk Score (Lifetime/Recent) Answer Date of Assessment Author No Risk Indicated 10/07/2024 12:39 PM EDT Day, Jared Salmeron RN * Question Answer Date of Assessment Author 1. Wish to be (Past 1 Month) No 025 12:39 PM EDT Day, Jolene Salmeron RN 2. Non-Specific Active Suici ceasar Thoughts (Past 1 Month) No 10/07/2024 12:39 PM EDT Day, Jolene Salmeron RN 6. Suicidal Behavior (Lifetime) No 12:39 PM EDT Day, Jolene Salmeron RN documented as of this encounter Discharge Instructions * Discharge Instructions* Alla Osborne MD - 10/07/2024 2:29 PM EDT Images from the original note were not included. Post-Anesthesia and Postoperative Instructions () In order to have a fast and comfortable recovery at home, please follow these instructions. A responsible adult must be present for you to be discharged. Do not drive, drink alcohol or make important decisions for 24 hours after surgery. You may feel like resting more than normal after surgery. Start slowly and be more active each day. Start slowly with liquids like 7-up, tea, apple juice or broth. Eat more as your stomach allows. Ifyou feel sick to your stomach, go back to drinking liquids. You may feel some discomfort after surgery. Take the medicine as directed by your caregiver. If your medicine makes you drowsy, do not drink alcohol, drive or operate heavy equipment for at least 24 hours after use. If you are taking antibiotics, take them until they are all gone even if you feel well. Cover your wound or bandage when showering, unless your doctor tells you differently. A small amount of drainage on your bandage is normal. Do not remove your bandage unless your doctortells you to. Please keep track of information about the medicines you take. Follow these tips to manage your medicines. Keep a list of all your medicines. Update the list when you start or stop taking a medicine. Write down changes in how you should take them. Carry your medicine list with you at all times. It will be needed if you have a health emergency . Give the list to your family doctor. Take the list to all your doctor visits. Call your doctor if you have any of the following Temperature higher than 101.5??F Chest pain or difficulty breathing Stomach sickness or throwing up that does not go away You cannot urinate by bedtime Pain is not helped by your medicine. Bandage becomes soaked with blood - Don't remove the bandage, reinforce only Swelling, redness, pain or pus from incision Questions or concerns about your surgery. In the event of an emergency, please go to the closest Emergency Room or call the Emergency Department at [phone]. Smoking and its health risks Smoking is the most preventable cause of illness and in the [place]. Cigarettes are filled with poison that goes into the lungs as you inhale. About 440,000 people every year from illnesses caused by smoking. People who smoke earlier than those who do not smoke. Heart and blood vessel disease, lung disease and ulcers are just some of the health problems that may be caused by smoking. Smoking also slows bone and wound healing and may slow your recovery from surgery. For help quitting smoking, call the National Cancer Maurice's Quitline toll free at or ask your doctor for help. Weight Management Weighing too much is not good for your health. Being overweight increases your risk of health conditions such as heart problems, high blood pressure, type 2 diabetes, and certain types of cancer. Being overweight can also increase your risk for osteoarthritis (qa-mxd-vq-mby-YPLW-xuo) (joint disease), sleep apnea (abnormal breathing at night) or other respiratory (breathing) problems. Being overweight may also cause a person to feel sad or be treated differently by others. The best way to lose weight is to eat fewer calories and get regular exercise. Eating more caloriesthan you need will cause you to gain weight. Try to cut down your calories by 500 calories per day.For example, cut down on one soda (about 150 calories), a small bag of regular potato chips (about 150 calories) and one chocolate bar (about 250 calories). For most people, this change will result in a slow weight loss of about one pound a week. Exercise (for example, walk, swim, or bicycle) for at least 30 minutes on most days of the week. You will be more likely to keep weight off if you make lifelong lifestyle changes. Aim for a slow, steady weight loss. Losing even a small amount of weight can lower your risk of health problems. Ask your dietitian, director fundraising or doctor about a weight loss goal that is right for you. Safe Use of Controlled Substances Taking a medicine may be an important part of your treatment. Your body should heal faster if you take medicine safely. Some medicines are called Controlled Substances. This means their use is controlled by law. Some of these can harm you if you do not take them safely. What can I do to make sure I take my medicine safely? Follow the instructions we give you for how to take your medicine. We will give you an instruction sheet for each of your medicines. Ask your doctor or nurse if you do not get these instructions. Some medicines make you sleepy or cloud your thinking. Do not drive, use heavy machines or do dangerous activities while taking these medicines. Read the label on the bottle each time you take your medicine. Do not take your medicine with alcohol or other sedatives. Do not take medicine after the expiration date. It is against the law to sell your medicine or share it with others. Do not drive while using your medicine. How should I store my medicine? Store it in a safe place. This will keep others from taking your medicine and help you keep track of it. Store controlled substances in a cabinet or container that you can lock. Keep it in a place that is cool, dry and out of direct sunlight. Do not leave it in the car. Do not store in a refrigerator or freezer, unless your doctor tells you to. Call your doctor right away if your medicine is lost or stolen. How should I dispose of medicine that is or no longer needed? You may have medicine left over that you do not need or should not take. You must dispose of it theright way to protect yourself and others. You can ask your local pharmacist how to dispose of them.You can also visit these Web sites to learn more about disposal of controlled substances: Drug Enforcement Agency (TARUN): http://www.deadiversion.usdoj.gov/drug_disposal/takeback/index.htm National Association of Drug Diversion Investigators (NADDI): http://rxdrugdropbox.org/ [place] Office of Drug Control Policy: http://odcp.ok.gov/Prescription+Drug+Drop+Box+Sites.htm Are there concerns about or ? Before you take a medicine, tell your doctor if you are or plan to get . This could harm your baby. Tell your doctor if you breastfeed. Medicine in breast milk may be bad for your child. What if I have low or impaired vision? If you have vision problems, take extra care with your medicine. Wear your glasses when you take your medicine. Do not take medicine in the dark. What are the signs of overdose? Some controlled substances may cause breathing problems if you take more than your doctor recommends. This may lead to serious health problems or even . You and your caregivers should watch for the following signs of overdose. Slurred speech, confusion or stumbling Feeling dizzy or faint Acting drowsy or groggy Unusual snoring, gasping or snorting during sleep Hard to wake up or keep awake What should I or my caregiver do if I overdose? You or your caregiver should call 911 if you have any of these problems: Cannot wake up Cannot talk after waking up Shortness of breath, slow or light breathing, or breathing has stopped Heartbeat is slow or stopped Gurgling noise comes from the mouth or throat Body is limp or seems lifeless Face is pale or clammy Fingernails or lips look blue or purple What is a RAMBO report? RAMBO is a system that tracks prescriptions of controlled substances in [place]. The RAMBO report tells your doctor if you have been prescribed controlled substances in the past. Doctors must get a RAMBO report before prescribing controlled substances. What can I do if the information in my RAMBO report is wrong? You or your doctor may contact the dispenser who reported the information to [employer]. If the dispenser agrees that the information should be changed, he or she can fix the RAMBO report. However, the dispenser may certify that the report is correct. If that is the case, you or your doctor may then call the [place] Drug Enforcement and Professional Practices Branch at .This will start an investigation of the error. Tips for Quitting Tobacco ([place]) Tobacco and secondhand smoke can cause health problems such as cancer or heart and lung disease. They also make it harder for you to get better after an illness or surgery. Tobacco and tobacco smoke have more than 4000 chemicals. They can hurt you and those near you. Know your ???triggers?? Triggers are danger situations where you have a strong urge to use tobacco. If you know them, you can deal with them. Avoid places where you will see people use tobacco. This is very important when you first start to quit. Plus, secondhand smoke is bad for you. Change habits that give you the urge to use tobacco. If you smoked in the car, drink water instead.If you used tobacco after meals, try taking walks. Stress, anger or sadness can cause you to crave tobacco. Fight the urge by thinking of things that make you relaxed or happy - like your favorite song. The urge will often pass in a few minutes. How to cope with nicotine withdrawal Nicotine in tobacco is very addictive. Nicotine withdrawal can put you in a bad mood and cause you to crave tobacco. This can last for weeks after you quit. There are medicines that can ease these feelings. We can help our patients fight the urge to use tobacco. While you are here, your doctor can get you medicines, nicotine patches or gum. Talk to your doctor about which one is best for you. Let us help you quit You do not have to spend a lot of money to get help. You may even find help for free. Support groups: Your local health department may offer these. 's resources to help you quit: http://www.[facility]/TobaccoFree/ - Click on the Quit Here! tab. A telephone quit line: (5-230-VBGBHCR) Web sites: www.smokefree.gov, www.becomeanex.org, www.[employer] Tobacco Treatment Counselors: Call 312-636-7062. Medicare and Medicaid pay for this. employees, retirees, and their spouses or sponsored dependents can get free nicotine replacementtherapy and coaching. Visit www.[facility]/HR/Wellness/consults.html. [facility]: Free pamphlets on quitting tobacco, secondhand smoke and other health topics. Tell your doctor or nurse if you are want to know more. We can help! You can quit! It is hard to quit tobacco. Most people try to quit a few times before they stay quit for good. It will be easier to quit if you can relax and stay calm in times of stress. Quitting tobacco saves youmoney and your health! - Diet: You may resume your regular home diet - Activity: Move around as you are able - Medications: Take tylenol and ibuprofen every 6 hours for pain Future Appointments Date Time Provider Department Center 10/12/2024 12:30 PM US 3 [facility] 10/22/2024 9:00 AM [facility] 10/22/2024 10:40 AM Carolee Gr [facility] 10/30/2024 10:50 AM Essence Nayak PA [facility] 11/19/2024 10:30 AM Rudy Andersen [facility] 05/03/2025 8:00 AM US 1 US[facility] 05/13/2025 8:10 AM Cheyenne Mitchell, ELIZABETH, [facility] Floor, [address] [address] Call [phone] for questions regarding appointment times documented in this encounter Medications at Time of Discharge aspirin 81 MG EC tablet Take 1 tablet by mouth daily. atorvastatin (Lipitor) 20 MG tablet Take 1 tablet by mouth nightly. 02/27/2021 B complex-vitamin C-folic acid (Nephro-Jose J) 0.8 MG tablet Take 1 tablet by mouth daily. 90 tablet 3 08/11/2024 6 calcitriol (Rocaltrol) 0.25 MCG capsule Take 1 capsule (0.25 mcg) by mouth daily. 90 capsule 3 08/11/2024 calcium acetate (Phoslo) 667 MG capsule Take 1 capsule (667 mg) by mouth in the morning and 1 capsule (667 mg) at noon and 1 capsule (667 mg) in the evening. Take with meals. 180 capsule 1 08/11/2024 carvedilol (Coreg) 25 MG tablet Take 1 tablet by mouth 2 times a day. 02/27/2021 clopidogrel (Plavix) 75 MG tablet Take 1 tablet by mouth nightly. 02/08/2021 ferrous sulfate 324 (65 Fe) MG EC tablet Take 2 tablets by mouth daily with breakfast. Do not crush, chew, or split. ipratropium (Atrovent) 0.06 % nasal spray Administer 2 sprays into each nostril 3 times a day as needed. 08/13/2023 levothyroxine (Synthroid, Levoxyl) 100 MCG tablet Take 1 tablet by mouth daily before breakfast. 01/14/2024 NIFEdipine CC (Adalat CC) 60 MG 24 hr tablet Take 1 tablet (60 mg) by mouth daily before breakfast. Do not crush, chew, or split. 30 tablet 08/13/2024 omeprazole (PriLOSEC) [address] capsule Take 1 capsule by mouth nightly. 02/08/2021 valsartan (Diovan) 160 MG tablet Take 1 tablet (160 mg) by mouth 1 (one) time each day. 30 tablet 06/25/2024 NIFEdipine CC (Adalat CC) 60 MG 24 hr tablet Take 1 tablet by mouth daily before breakfast. Do not crush, chew, or split. 90 tablet 09/08/2024 documented as of this encounter Miscellaneous Notes * Op Note - Alla Osborne MD - 10/07/2024 1:10 PM EDT Operative Note Date: 10/07/24 Location: [facility] OR Name: Phillip Briggs, : 1940, Diagnoses: Pre-op Diagnosis Dysphagia, unspecified type Post-op Diagnosis Dysphagia, unspecified type Procedure(s): Suspension microlaryngoscopy Flexible Esophagoscopy with biopsy and balloon dilation Attending Surgeon(s): * Rudy Andersen - Primary * Alla Osborne - Assisting Roller Operator(s): Alla Osborne MD Anesthesia: General ASA: III Blood Administration: Blood Product Administration History Date Volume Status Transfuse RBC 06/21/2024 300 mL Completed 06/21/24 1232 Transfuse RBC 05/31/2024 300 mL Completed 05/31/24 0727 Estimated Blood Loss: Minimal Drains: * None in log * Specimen: 1 Larynx Tissue Rudy Andersen MD 10/07/24 8836 No Description: post crycoid mucosa Findings: Old pill found in the posterior hypopharynx and removed Narrowing at the post cricoid region with edematous appearing tissue, which was biopsied. Balloon dilation in this area to 20 mm. There was also food bolus seen at the proximal esophagus just past the introitus No other concerning lesions or abnormal mucosa in the mid and distal esophagus Indications: Phillip Briggs is an 84 y.o. male who is having surgery for Dysphagia, unspecified type. Narrative: After informed consent was obtained that patient was transported to the operating room and placed in the supine position on the operating room table. The patient was intubated and turned 90 degrees away from the anesthesia team. The patient was prepped and draped in the standard fashion for laryngoscopy. A wet Raytec was placed and a Dedo laryngoscope was inserted into the post- cricoid space. The laryngoscope was placed into suspension and the transnasal esophagoscope was carefully advanced through the laryngoscope and into the cervical esophagus. It was carefully advanced along the length of the esophagus and into the stomach. It was slowly retracted and the esophagus was visualized in its entirety. Pertinent operative findings are listed above. A food bolus was encountered in the proximal esophagus and suctioned out. A biopsy was taken of the edematous post cricoid mucosa using cupped biopsy forceps and passed off. The 18-20 CRE balloon was advanced through the laryngoscope and into the esophagus at the level of the stenosis. The balloon was inflated to 20 mm and held in place for approximately 1 minute. It wasthen deflated and removed from the esophagus. Afrin soaked pledgets were used to obtain hemostasis. At this time the transnasal esophagoscope was removed, the patient was taken out of suspension, andthe laryngoscope and mouth guard were removed. The patient was turned back to the anesthesia care team, extubated without difficulty, and transferred to the post-operative care unit in stable condition. Complications: None; patient tolerated the procedure well. Submitted by: Alla Osborne MD - 10/07/2024 Cosigned by Rudy Andersen MD at 10/09/2024 6:50 AM EDT Associated attestation - Rudy Andersen MD - 10/09/2024 6:50 AM EDT I was present and scrubbed for the entire case and agree with the above description of the entire procedure. * H&P - Alla Osborne MD - 10/07/2024 9:09 AM EDT Nader Briggs was seen in pre-operative holding. H&P from 09/24/24 as shown below was reviewed. Consent obtained. Proceed to OR today for suspension microlaryngoscopy with lysis of web, steroid injection, flexible esophagoscopy with balloon dilation. I had the pleasure of seeing your patient today in clinic. Nader Briggs is a 84 y.o. male that presents with problems with his swallowing. 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 He has gradually worsened with his swallowing, but really worsened over the past year. He was referred by Dr. Dobbins to GI for treatment of his swallowing, but they encountered only an upper esophageal/pharyngeal stricture at only 14cm from the teeth and referred to me today. He has been worsening with his food and will primarily do softs and liquids. He has been slowly losing weight and currently 131 pounds today. Denies ever smoking. He is currently on dialysis as well for ESRD. Has been having a weakervoice, but no acute change. Visit Vitals BP (!) 105/31 Pulse 63 Ht 1.803 m (5' 11 ) Wt 59.4 kg (131 lb) BMI 18.27 kg/m?? Smoking Status Never BSA 1.72 m?? [Allergies] [Allergies] Allergen Reactions Nsaids Unknown - Patient states they do not know rxn details and Nausea Renal Active Ambulatory Problems Diagnosis Date Noted CORY (acute kidney injury) ([facility]) 05/28/2024 Kidney lesion, tunica-biloxi, left 06/24/2024 ESRD (end stage renal disease) ([facility]) 08/13/2024 Resolved Ambulatory Problems Diagnosis Date Noted No Resolved Ambulatory Problems Past Medical History: Diagnosis Date Anemia Cancer of neck ([facility]) Carotid artery occlusion 2019 Chronic kidney disease Conversions - Other Diabetes mellitus (CMS/HCC) 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 Social history as noted above entire 14 point ROS was negative with the exception of those listed in the HPI General: patient is awake, nontoxic appearing, and in no acute distress. Skin: No overtly ulcerated, cellulitic, or indurated lesions of the head or neck. Head: Normocephalic and atraumatic. Sinuses are nontender to palpation. Ears: The pinnas are well formed. External auditory canals are nonstenotic without cerumen impaction bilaterally. Tympanic membranes are intact bilaterally without evidence of effusion or active infection appreciated. Eyes: Extraocular muscles are intact. The sclera and conjunctiva are normal. Pupils are equal and reactive to light without evidence of afferent pupillary defect. No ptosis is appreciated. Nose: The nasal dorsum is without scar or deformity. No mucopurulence or polyps are appreciated. The nasal airways are patent bilaterally. Oral cavity: No mucosal masses or lesions are appreciated. Floor of mouth is soft and the tongue has full range of motion. There is appropriate incisor opening without trismus. There are no fasciculations of the tongue. Oropharynx: No mucosal masses or lesions are appreciated. Base of tongue is soft and the palate elevates symmetrically without draping. The uvula is midline. Neck: The neck is soft and supple. No crepitus, masses, or lymphadenopathy are appreciated. The trachea is in midline. Circulatory: regular rate and rhythm, pulses 2+ bilaterally Pulmonary: no wheezing, no stridor Neuro: CN II-XII intact, gait normal PROCEDURE NOTE: Transnasal Fiberoptic Laryngoscopy with Stroboscopy (09632) PREOPERATIVE DIAGNOSIS: _Dysphonia POSTOPERATIVE DIAGNOSIS: _Same as above PROCEDURE: Informed consent was obtained and all questions regarding the procedure were answered. Under topical anesthesia (2% Lidocaine and Ephedrine), the flexible laryngoscope was introduced and the findings noted. Stroboscopy was performed at various intensities and pitch levels. Following this, the procedure was terminated. The patient tolerated the procedure well without apparent complications and was returned to ambulatory status to be followed as an outpatient. FINDINGS: The nasopharynx, oropharynx and hypopharynx were normal in appearance without suspicious masses or lesions. There is full mobility of bilateral true vocal folds without evidence of lesions or masses.Mucosal wave propagation was symmetric and full at all pitches and intensities. The subglottis is widely patent. There is no evidence of muscle tension dysphonia or glottic gap. There is mild poolingof secretions. No pharyngeal stricture identified above the pyriforms. Modified Barium swallow from last year shows impaired biomechanics of pharyngeal mechanism as well as impaired passing of the bolus over the UES with a small CP muscle identified. Pooling in the pyriforms as well as the vallecula. 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 Will set up for a trip to the operating room for SML with lysis of web and steroid injection to it, followed by esophageal balloon dilation to improve his swallowing. May benefit from a MBS to ascertain what he can do to improve his swallowing technique due to his history of radiation treatment 27 years ago. Cosigned by Rudy Andersen MD at 10/08/2024 8:08 AM EDT Associated attestation - Rudy Andersen MD - 10/08/2024 8:08 AM EDT I saw and evaluated the patient with the resident/fellow. I discussed the case with the resident/fellow and agree with the findings and plan as documented. * Preprocedure Instructions - Sandra Glaser APRN - 09/25/2024 10:34 AM EDT Home Medication Instructions Current Medications Medication Instructions aspirin 81 MG EC tablet Take morning of surgery atorvastatin (Lipitor) 20 MG tablet Take night before surgery B complex-vitamin C-folic acid (Nephro-Jose J) 0.8 MG tablet Hold day of surgery calcitriol (Rocaltrol) 0.25 MCG capsule Hold day of surgery calcium acetate (Phoslo) 667 MG capsule Hold day of surgery carvedilol (Coreg) 25 MG tablet Take morning of surgery clopidogrel (Plavix) 75 MG tablet Take morning of surgery per Dr Steinberg ferrous sulfate 324 (65 Fe) MG EC tablet Hold day of surgery levothyroxine (Synthroid, Levoxyl) 100 MCG tablet Take morning of surgery NIFEdipine CC (Adalat CC) 60 MG 24 hr tablet Take morning of surgery omeprazole (PriLOSEC) [address] capsule Take morning of surgery valsartan (Diovan) 160 MG tablet Hold day of surgery General Preoperative Instructions You will be called the business day before surgery with your arrival time No food after midnight the night before surgery. You can drink clear liquids up to 2 hours prior to arrival unless instructed by your surgeon otherwise. Please do not try to get all your hydration in 2 hours prior to arrival. Start the day before surgery drinking more than you usually would. After midnight, you can have clear liquids only (water,apple juice, Gatorade) up to 2 hours prior to arrival. No coffee or tea. No alcohol or smoking prior to surgery Arrive on time to avoid delays Parking/Registration procedure explained You MUST have a responsible adult available for transport to and from hospital Visitation policy for the day of surgery reviewed Bring insurance card, photo ID, along with power of automotive machinist apprentice, guardianship or advanced directives if applicable Do not bring money, jewelry or other valuables Hibiclens bathing instructions reviewed if applicable Notify surgeon of fever, illness, any changes or if you decide not to have surgery Diabetes Instructions (If applicable) Take diabetes medication as instructed You may have up to 4 ounces of apple juice 2 hours prior to arrival for surgery for low glucose * PAT Phone Note - Sandra Glaser APRN - 09/25/2024 9:54 AM EDT HPI Nader Briggs is a 84 y.o. male who presents with Pre-op Diagnosis * Dysphagia, unspecified type [R13.10] now scheduled for SUSPENSION MICROLARYNGOSCOPY WITH LYSIS OFWEB, INJECTION DECARDON 10mg/ml 1 ml TO PHARYNX/ESOPHAGEAL STRICTURE, FLEXIBLE ESOPHAGOSCOPY WITH BALLOON DILATION (Bilateral)with Rudy Andersen MD on 10/07/2024 At [facility]. Pre-op F/U evaluation- pleaseso comprehensive pre-op evaluation completed on 08/14/24. The patient denies any changes to his health history since their last surgery. Tolerated anesthesiawithout issues. Denies any recent URI. HD Q T-Th-Sa via chest PORT. Is prescribed 81 mg ASA & Plavix 2/2 hx TIA x 2 s/p carotid stent. Medications reviewed. Questions addressed. Most recent G.A 08/21/24: Successful airway: ETT Cuffed: yes Successful intubation technique: video laryngoscopy Adjuncts used in placement: intubating stylet Endotracheal tube insertion site: oral Blade: Siena Blade size: #3 ETT size (mm): 7.0 Cormack-Lehane Classification: grade IIa - partial view of glottis Placement verified by: chest auscultation and capnometry Measured from: lips ETT to lips (cm): 22 Additional Comments Hx neck radiation limited mouth opening. Grade III view with MAC 3, cricoid pressure did not improve view. Easy mask. Bilateral chest rise, Bilateral breath sounds, Negative epigastric sounds, and Positive ETCo2. Atraumatic no change to dentition. Medical History[1] Family History[2] Social History[3] SURGICAL HISTORY: Surgical History[4] Allergies[5] MEDICATIONS: No current facility-administered medications for this encounter. Current Outpatient Medications: aspirin, Take 1 tablet by mouth daily. atorvastatin, Take 1 tablet by mouth nightly. B complex-vitamin C-folic acid, Take 1 tablet by mouth daily. calcitriol, Take 1 capsule (0.25 mcg) by mouth daily. calcium acetate, Take 1 capsule (667 mg) by mouth in the morning and 1 capsule (667 mg) at noon and1 capsule (667 mg) in the evening. Take with meals. carvedilol, Take 1 tablet by mouth 2 (two) times a day. clopidogrel, Take 1 tablet by mouth nightly. ferrous sulfate, Take 2 tablets by mouth daily with breakfast. Do not crush, chew, or split. ipratropium, Administer 2 sprays into each nostril as needed in the morning and 2 sprays as needed at noon and 2 sprays as needed in the evening. levothyroxine, Take 1 tablet by mouth daily before breakfast. NIFEdipine CC, Take 1 tablet (60 mg) by mouth 1 (one) time each day. Do not crush, chew, or split. NIFEdipine CC, Take 1 tablet (60 mg) by mouth daily before breakfast. Do not crush, chew, or split.(Patient not taking: Reported on 08/13/2024) NIFEdipine CC, Take 1 tablet by mouth daily before breakfast. Do not crush, chew, or split. omeprazole, Take 1 capsule by mouth nightly. sodium zirconium cyclosilicate, Take 10 g by mouth every other day. Take on non dialysis days. valsartan, Take 1 tablet (160 mg) by mouth 1 (one) time each day. 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 artery occlusion 2018 Chronic kidney disease dialysis catheter right chest Conversions - Other Nephrolithiasis Diabetes mellitus (CMS/HCC) Disease of thyroid gland Hx of shelter use of blood thinners 2013 Hyperlipidemia Hypertension Kidney stone TIA (transient ischemic attack) 2013 [2] Family History Problem Relation Name Age of Onset Hypertension Mother Berna Benign Essential Hypertension Mother Berna Arthritis Father Nader Anesthesia problems Neg Hx Malig Hyperthermia Neg Hx [3] Social History Tobacco Use Smoking status: Never Smokeless tobacco: Never Vaping Use Vaping status: Never Used Substance Use Topics Alcohol use: Never Drug use: Never [4] Past Surgical History: Procedure Laterality Date APPENDECTOMY CAROTID ARTERY ANGIOPLASTY N/A Carotid artery angioplasty and stenting from [facility] CAROTID ENDARTERECTOMY 209 CAROTID STENT 2019 CHOLECYSTECTOMY NECK SURGERY N/A Neck Surgery from [facility] PROSTATE SURGERY N/A Prostate Surgery from [facility] TOTAL HIP ARTHROPLASTY N/A Hip Replacement from [facility] [5] Allergies Allergen Reactions Nsaids Unknown - Patient states they do not know rxn details and Nausea Renal documented in this encounter Plan of Treatment Upcoming Encounters Date Type Department Care Team (Late st Contact Info) Description 11/26/2024 10:00 AM EDT Office Visit [facility] [address] [facility] 5th Floor [address] [place] [address] Carolee Gr MD [address] [place] [address] 05/03/2025 8:00 AM EST Appointment [facility] Ultrasound [address] [place] [address] 2025 1:00 PM EST Office Visit [facility] Ot[facility] [address], [address] [place] [address] Rudy Andersen MD [address] [place] [address] 05/13/2025 8:10 AM EST Office Visit [facility] Urology [address] [place] [address] Cheyenne Mitchell, SHOE REPAIR SUPERVISOR, DNP [address] [place] [address] documented as of this encounter Procedures Procedure Name Priority Date/Time Associated Diagnosis Comments POCT GLUCOSE METER UNSOLICITED RESULTS Routine 10/07/2024 2:39 PM EDT SURGICAL PATHOLOGY EXAM Routine 10/07/2024 2:23 PM EDT Dysphagia, unspecified type LARYNGOSCOPY 10/07/2024 1:24 PM EDT Dysphagia, unspecified type DILATION, ESOPHAGUS 10/07/2024 1 :24 PM EDT Dysphagia, unspecified type BLOOD GAS PANEL, VENOUS STAT 10/07/2024 12:49 PM EDT POCT GLUCOSE METER UNSOLICITED RESULTS Routine 10/07/2024 12:33 PM EDT documented in this encounter Results * (ABNORMAL) POCT glucose meter (10/07/2024 2:39 PM EDT) POCT Glucose 111(H) 74 - 99 mg/dL 10/07/2024 2:40 PM EDT [facility] Comment:Accuracy of a glucos e result obtained from a capillary whole blood specimen relies upon adequate, non-compromised capillary blood flow. If the capillary glucose result is not consistent with the patient's clinical signs and symptoms, glucose testing should be repeated with either an arterial or venous sample on the glucometer or sent to the main labortory for testing. Comment 10/07/2024 2:40 PM EDT [facility] Asp Net Programmer ID Ester Mcwilliams 10/07/2024 2:40 PM EDT [facility] Device ID [id number] 10/07/2024 2:40 PM EDT [facility] Specimen Type POC Capillary 10/07/2024 2:40 PM EDT [facility] Blood Capillary blood specimen / Unknown 10/07/2024 2:39 PM EDT 10/07/2024 2:40 PM EDT us Rudy Andersen MD LAB POINT OF CARE TE ST DOCKED DEVICE UNSOLICITED RESULTS Final Result Performing Organization Address City/State/[facility] Co de Phone Number [facility] [address] [place] [address] * Surgical Pathology Exam (10/07/2024 2:23 PM EDT) Pathologist [facility] Case Report Surgical Pathology Case: [id number] Authorizing Provider: Rudy Andersen MD Collected: 10/07/2024 1423 Ordering Location: [facility] Received: 10/07/2024 1625 Surgery Pathologist: Katina Funez MD Specimen: Larynx, post crycoid mucosa 10/09/2024 2:56 PM EDT [facility] Final Diagnosis A. POST CRYCOID MUCOSA, BIOPSY: - BENIGN SQUAMOUS EPITHELIUM WITH SUBEPITHELIAL EDEMA AND MILD CHRONIC INFLAMMATION 10/09/2024 2:56 PM EDT [facility] at 1456 EDT Clinical Information Dysphagia, unspecified type [R13.10] 10/09/2024 2:56 PM EDT [facility] Gross Description A. POST CRYCOID MUCOSA Received in formalin labeled p ost cricoid mucosa , is 1 pink-chapman soft tissue fragment measuring 0.7 cm in greatest dimension. Entirely submitted in cassette A1. Cold Time: <1m Michelle Neri 10/09/2024 2:56 PM EDT [facility] Note: A resident was involved in the service. I attest I examined the relevant preparations for the specimens and confirmed the diagnosis or interpretation. 10/09/2024 2:56 PM EDT [facility] Tissue Laryngeal structure / Unknown 10/07/2024 2:23 PM EDT 10/07/2024 4:25 PM EDT Comment:Pre-op diagnosis: Dysphagia, unspecified type [R13.10] us Rudy Andersen MD LAB PATHOLOGY ORDERABLES Final R esult [facility] [address] [place] [address] * (ABNORMAL) Blood gas, venous (10/07/2024 12:49 PM EDT) pH, Venous 7.35 7.32 - 7.43 LAB HEMATOLOGY METHOD 10/07/2024 12:57 PM EDT [facility] pCO2, Venous 60(HH) 40 - 55 mmHg LAB HEMATOLOGY METHOD 10/07/2024 12:57 PM EDT [facility] pO2, Venous 22(L) 25 - 40 mmHg LAB HEMATOLOGY METHOD 10/07/2024 12:57 PM EDT [facility] SO2, Measured, Venous 27(L) 65 - 80 % LAB HEMATOLOGY METHOD 10/07/2024 12:57 PM EDT [facility] Base Excess, Venous 6.0(H) -2.0 - 3.0 mmol/L LAB HEMATOLOGY METHOD 10/07/2024 12:57 PM EDT [facility] Bicarbonate, Calculated, Venous 33(H) 22 - 26 mmol/L LAB HEMATOLOGY METHOD 10/07/2024 12:57 PM EDT [facility] Hematocrit, Whole Blood 29.3(L) 40.0 - 51.0 % LAB HEMATOLOGY METHOD 10/07/2024 12:57 PM EDT [facility] Sodium, Whole Blood 145 136 - 145 mmol/L LAB HEMATOLOGY METHOD 10/07/2024 12:57 PM EDT [facility] Potassium, Whole Blood 4.4 3.6 - 4.9 mmol/L LAB HEMATOLOGY METHOD 10/07/2024 12:57 PM EDT [facility] Chloride, Whole Blood 103 97 - 107 mmol/L LAB HEMATOLOGY METHOD 10/07/2024 12:57 PM EDT [facility] Glucose, Whole Blood 117(H) 74 - 99 mg/dL LAB HEMATOLOGY METHOD 10/07/2024 12:57 PM EDT [facility] Lactate, Venous, Whole Blood 0.7 0.5 - 2.2 mmol/L LAB HEMATOLOGY METHOD 10/07/2024 12:57 PM EDT [facility] Ionized Calcium, Whole Blood 4.6 4.6 - 5.1 mg/dL LAB HEMATOLOGY METHOD 10/07/2024 12:57 PM EDT [facility] Blood Venous blood specimen / Unknown Venipuncture / Unknown 10/07/2024 12:49 PM EDT 10/07/2024 12:55 PM EDT us Casie Baker MD LAB BLOOD ORDERABLES Final Re sult [facility] [address] [place] [address] * (ABNORMAL) POCT glucose meter (10/07/2024 12:33 PM EDT) POCT Glucose 106(H) 74 - 99 mg/dL 10/07/2024 12:35 PM EDT [facility] Comment:Accuracy of a glucos e result obtained from a capillary whole blood specimen relies upon adequate, non-compromised capillary blood flow. If the capillary glucose result is not consistent with the patient's clinical signs and symptoms, glucose testing should be repeated with either an arterial or venous sample on the glucometer or sent to the main labortory for testing. Comment 10/07/2024 12:35 PM EDT [facility] Asp Net Programmer ID Mara, Jolene 10/07/2024 12:35 PM EDT [facility] Device ID [id number] 10/07/2024 12:35 PM EDT [facility] Specimen Type POC Capillary 10/07/2024 12:35 PM EDT [facility] Blood Capillary blood specimen / Unknown 10/07/2024 12:33 PM EDT 10/07/2024 12:35 PM EDT us Rudy Andersen MD LAB POINT OF CARE TE ST DOCKED DEVICE UNSOLICITED RESULTS Final Result Performing Organization Address City/State/[facility] Co de Phone Number [facility] [address] [place] [phone] documented in this encounter Visit Diagnoses Diagnosis Dysphagia, unspecified type documented in this encounter Administered Medications Inactive Administered Medications - up to 3 most recent administrations Medication Order MAR Action Action Date Dose Rate Site acetaminophen (Tylenol) tablet 1,000 mg 1,000 mg, Oral, Once as needed, 1 dose, Starting on Sat10/07/24 at 1428, Until Sat10/07/24 at 1720, Routine, Recovery (Phase I only), pain score of >1 out of 10 fentaNYL (Sublimaze) injection 25 mcg 25 mcg, Intravenous, Every 5 min PRN, 2 doses, Starting on Sat10/07/24 at 1428, Until Sat10/07/24 at 1720, Routine, Recovery (Phase I only), pain score of 3-4 out of 10 fentaNYL (Sublimaze) injection 50 mcg 50 mcg, Intravenous, Every 5 min PRN, 2 doses, Starting on Sat10/07/24 at 1428, Until Sat10/07/24 at 1720, Routine, Recovery (Phase I only), pain score of 5-8 out of 10 ipratropium-albuterol (Duo-Neb) 0.5-2.5 mg/3 mL nebulizer solution 3 mL 3 mL, Nebulization, Once as needed, 1 dose, Starting on Sat10/07/24 at 1428, Until Sat10/07/24 at 1720, Routine, Recovery (Phase I only), shortness of breath naloxone (Narcan) injection 0.4 mg 0.4 mg, Intravenous, As needed, Starting on Sat10/07/24 at 1428, Until Sat10/07/24 at 1720, Routine, Recovery (Phase I only), respiratory depression sodium chloride 0.9 % infusion 20 mL/hr, Intravenous, Continuous, Starting on Sat10/07/24 at 1300, Until Sat10/07/24 at 1720, Routine documented in this encounter Active and Recently Administered Medications Times are shown in EDT. Continuous Medication Order 10/05/2024 10/06/2024 10/07/2024 sodium chloride 0.9 % infusion 20 mL/hr, Intravenous, Continuous, Starting on Sat10/07/24 at 1300, Until Sat10/07/24 at 1720, Routine 1300 (Canceled Entry - Provider: Automatic Discharge Provider - Comment: Automatically canceled at discontinue of medication order) PRN Medication Order 10/05/2024 10/06/2024 10/07/2024 acetaminophen (Tylenol) tablet 1,000 mg 1,000 mg, Oral, Once as needed, 1 dose, Starting on Sat10/07/24 at 1428, Until Sat10/07/24 at 1720, Routine, Recovery (Phase I only), pain score of >1 out of 10 fentaNYL (Sublimaze) injection 25 mcg 25 mcg, Intravenous, Every 5 min PRN, 2 doses, Starting on Sat10/07/24 at 1428, Until Sat10/07/24 at 1720, Routine, Recovery (Phase I only), pain score of 3-4 out of 10 fentaNYL (Sublimaze) injection 50 mcg 50 mcg, Intravenous, Every 5 min PRN, 2 doses, Starting on Sat10/07/24 at 1428, Until Sat10/07/24 at 1720, Routine, Recovery (Phase I only), pain score of 5-8 out of 10 ipratropium-albuterol (Duo-Neb) 0.5-2.5 mg/3 mL nebulizer solution 3 mL 3 mL, Nebulization, Once as needed, 1 dose, Starting on Sat10/07/24 at 1428, Until Sat10/07/24 at 1720, Routine, Recovery (Phase I only), shortness of breath naloxone (Narcan) injection 0.4 mg 0.4 mg, Intravenous, As needed, Starting on Sat10/07/24 at 1428, Until Sat10/07/24 at 1720, Routine, Recovery (Phase I only), respiratory depression oxymetazoline (Afrin) 0.05 % nasal spray (CANCELED) As needed, Starting on Sat10/07/24 at 1342, Until 10/07/24 at 1434, Routine, Intraprocedure 1342 (Given - Provid er: Rudy Andersen MD - Comment: soaked pledgets) documented in this encounter Additional Health Concerns Assessment Noted Time PHQ-9 Depression Total Score: 0 08/27/19 12:37 PM EDT A fall risk assessment has been complete d for the patient 08/26/2024 12:38 PM EDT A Body Mass Index follow-up plan has been documented for the patient 09/25/2024 6:16 AM EDT documented as of this encounter Care Teams Waiter/Waitress Third Class Relationship Specialty Start Date End Date Oz Ramos MD [address] [place] [address] [address] [place] [address] PCP - General 10/07/20 John Joseph MD [address] [place] [address] Consulting Physician Urology 02/04/23 Cheyenne Mitchell, ELIZABETH, DNP [address] [place] [address] Nurse Practitioner Urology 05/13/24 documented as of this encounter
--- OUTSIDE RECORDS SUMMARY | 2024-10-07 13:15 | XMS_ITS | Encounter Summary ---
Author Organization [facility] Address [address] [place] [address] Care Team Providers Care Quality Assurance Lab Technician Name Role Phone Oz Ramos MD Primary Care Provider [phone] John Joseph MD Unavailable [phone] Cheyenne Mitchell APRN, [facility] Unavailable [phone] Reason for Visit * Auth/Cert (Routine) Specialty Diagnoses / Procedures Referred By Titi chinchilla Referred To Contact Diagnoses Dysphagia, unspecified type Dysphagia, unspecified type [R13.10] Procedures SC LARYNGOSCOPY,DIRCT,OP SCOP,EXC TUMR SC LARYNGOSCOPY,DIRECT,SCOPE,INJ CORDS SC ESOPHAGOSCOPY FLEX BALLOON DILAT <30 MM DIAM SC DEXAMETHASONE SODIUM PHOS SUSPENSION MICROLARYNGOSCOPY WITH LYSIS OF WEB, INJECTION DECARDON 10mg/ml 1 ml TO PHARYNX/ESOPHAGEAL STRICTURE, FLEXIBLE ESOPHAGOSCOPY WITH BALLOON DILATION . Rudy Andersen MD [address] [facility] [address] [place] [address] Phone: tel: fax: [facility] [address] [place] [address] Phone: tel: Referral ID Status Reason Start Date Expiration Date Visits Re quested Visits Authorized [id number] 1 1 Encounter Details Date Type Department Care Team (Late st Contact Info) Description 10/07/2024 1:15 PM EDT - 10/07/2024 2:15 PM EDT Surgery [facility] [address] [place] [address] Rudy Andersen MD [address] [place] [phone] SUSPENSION MICROLARYNGOSCOPY WITH LYSIS OF WEB, FLEXIBLE ESOPHAGOSCOPY WITH BALLOON DILATION Surgery Details Date/Time Status Location OR Service Patient Class Case Class Case Type Trauma Case? 10/07/2024 1:15 PM Posted [facility] OR [address] Outpatient Surgery E-Electiv e Panel 1 Procedure LRB Anes Op Region Wound Class Comments SUSPENSION MICROLARYNGOSCOPY WITH LYSIS OF WEB, FLEXIBLE ESOPHAGOSCOPY WITH BALLOON DILATION Bilateral General . Bilateral Surgeon Surgeon Role Service Panel Rudy Andersen MD Primary ENT 1 Alla Osborne MD Assisting 1 documented in this encounter Social History Tobacco [...] any time in the past 12 m [facility], were you homeless or living in a senior care (including now)? No 06/19/2024 CAGE ASSESSMENT Answer [...] drink first t jeff in the morning (EYE-FINISHER WALLBOARD AND PLASTERBOARD) to steady your nerves or to get rid of a hangover? 0 06/18/2024 CAGE Questionnaire Score 0 025 Utilities Answer Date Recorded In the past 12 months has th e electric, gas, oil, or water company threatened to [...] Sign Reading Time Taken Comments Blood Pressure 216/62 10/07/2024 1:00 PM EDT Pulse 60 10/07/2024 11:59 AM EDT Temperature 36.7 C (98.1 F) 10/07/2024 11:59 AM EDT Respiratory Rate 20 10/07/2024 11:59 AM EDT Oxygen Saturation 96% 10/07/2024 11:59 AM EDT Inhaled Oxygen Concentration - - Weight [...] Room or call the Emergency Department at [phone]. Smoking and its health risks Smoking is [...] help quitting smoking, call the National Cancer [place]'s Quitline toll free at or ask your doctor for help. Weight Management Weighing too much is not good for your health. Being overweight increases your risk of health conditions such as heart problems, high blood pressure, type 2 diabetes, and certain types of cancer. Being overweight can also increase your risk for osteoarthritis (tb-gdp-ni-lsl-FDJV-xgg) (joint disease), sleep apnea (abnormal breathing at [...] risk of health problems. Ask your dietitian, spike driver or doctor about a weight loss goal [...] Association of Drug Diversion Investigators (NADDI): http://rxdrugdropbox.org/ [place] Office of Drug Control Policy: http://odcp.ky.gov/Prescription+Drug+Drop+Box+Sites.htm Are there concerns about or ? Before [...] look blue or purple What is a [facility] report? RAMBO is a system that tracks prescriptions of controlled substances in [place]. The [facility] report tells your doctor if you have been prescribed controlled substances in the past. Doctors must get a RAMBO report before prescribing controlled substances. What can I do if the information in my RAMBO report is wrong? You or your doctor may contact the dispenser who reported the information to [employer]. If the dispenser agrees that the information should be changed, he or she can fix the RAMBO report. However, the dispenser may certify that the report is correct. If that is the case, you or your doctor may then call the [place] Drug Enforcement and Professional Practices Branch at [...] Your local health department may offer these. [place]'s resources to help you quit: http://www.[facility]/TobaccoFree/ - Click on the Quit Here! tab. A telephone quit line: (9-604-OWBKAYR) Web sites: www.smokefree.gov, www.becomeanex.org, www.Liquid Light.[facility] Tobacco Treatment Counselors: Call 543-699-5450. Medicare and Medicaid pay for this. employees, retirees, and their spouses or sponsored dependents can get free nicotine replacementtherapy and coaching. Visit www.[facility]/HR/Wellness/consults.html. Pacheco [facility]olliday [facility]: Free pamphlets on [...] Time Provider Department Center 10/12/2024 12:30 PM GS US 3 USGSGSH [facility] 10/22/2024 9:00 AM [facility] 3 [facility] 10/22/2024 10:40 AM Carolee Gr MD [facility] 10/30/2024 10:50 AM Essence Nayak PA [facility] 11/19/2024 10:30 AM Rudy Andersen MD [facility] 05/03/2025 8:00 AM GS US 1 USGSGSH GSH 05/13/2025 8:10 AM Cheyenne Mitchell APRN, [facility] Third Floor, [place] [address] [address] Call [phone] for questions regarding appointment times documented in this encounter Medications at Time of Discharge aspirin 81 MG EC tablet Take 1 tablet by mouth daily. atorvastatin (Lipitor) 20 MG tablet Take 1 tablet by mouth nightly. 02/27/2021 B complex-vitamin C-folic acid (Nephro-Jose J) 0.8 MG tablet Take 1 tablet by mouth daily. 90 tablet 3 08/11/2024 calcitriol (Rocaltrol) 0.25 MCG capsule Take 1 capsule (0.25 mcg) by mouth daily. 90 capsule 3 08/11/2024 6 calcium acetate (Phoslo) 667 MG capsule Take 1 capsule (667 mg) by mouth in the morning and 1 capsule (667 mg) at noon and 1 capsule (667 mg) in the evening. Take with meals. 180 capsule 1 08/11/2024 5 carvedilol (Coreg) 25 MG tablet Take 1 [...] crush, chew, or split. 90 tablet 09/08/2024 5 documented as of this encounter Miscellaneous Notes * Op Note - Alla Osborne MD - 10/07/2024 1:10 PM EDT Operative Note Date: 10/07/24 Location: [facility] OR Name: Phillip Briggs, : 1940, Diagnoses: Pre-op Diagnosis Dysphagia, unspecified type Post-op Diagnosis Dysphagia, unspecified type Procedure(s): Suspension microlaryngoscopy Flexible Esophagoscopy with biopsy and balloon dilation Attending Surgeon(s): * Rudy Andersen - Primary * Alla Osborne - Assisting Oriental Medicine Practitioner(s): Alla Osborne MD Anesthesia: General ASA: III Blood Administration: Blood Product Administration History Date Volume Status Transfuse RBC 06/21/2024 300 mL Completed 06/21/24 1232 Transfuse RBC 05/31/2024 300 mL Completed 05/31/24 0727 Estimated Blood Loss: Minimal Drains: * None in log * Specimen: 1 Larynx Tissue Rudy Andersen MD 10/07/24 1423 No Description: post crycoid mucosa Findings: Old [...] well for ESRD. Has been having a weaker voice, but no acute change. Visit Vitals BP (!) 105/31 Pulse 63 Ht 1.803 m (5' 11 ) Wt 59.4 kg (131 lb) BMI 18.27 kg/m?? Smoking Status Never BSA 1.72 m?? [Allergies] [Allergies] Allergen Reactions Nsaids Unknown - Patient states they do not know rxn details and Nausea Renal Active Ambulatory Problems Diagnosis Date Noted [facility] [place] 05/28/2024 Kidney lesion, [place], left 06/24/2024 ESRD (end stage renal disease) [place] 08/13/2024 Resolved Ambulatory Problems Diagnosis Date Noted No Resolved Ambulatory Problems Past Medical History: Diagnosis Date Anemia Cancer of neck ([facility] Carotid artery occlusion 2018 Chronic kidney disease Conversions - Other Diabetes mellitus ([facility]) Hx of fci use of blood thinners 2013 Hyperlipidemia Hypertension [...] PROCEDURE NOTE: Transnasal Fiberoptic Laryngoscopy with Stroboscopy (80979) PREOPERATIVE DIAGNOSIS: _Dysphonia POSTOPERATIVE DIAGNOSIS: _Same as [...] card, photo ID, along with power of compliance attorney, guardianship or advanced directives if applicable Do [...] (Bilateral)with Rudy Andersen MD on 10/07/2024 At [facility]. 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 Hyperlipidemia Hypertension [...] N/A Carotid artery angioplasty and stenting from [facility] CAROTID ENDARTERECTOMY 209 CAROTID STENT 2018 CHOLECYSTECTOMY NECK SURGERY N/A Neck Surgery from [facility] PROSTATE SURGERY N/A Prostate Surgery from [facility] TOTAL HIP ARTHROPLASTY N/A Hip Replacement from [facility] [5] Allergies Allergen Reactions Nsaids Unknown - Patient states they do not know rxn details and Nausea Renal documented in this encounter Plan of Treatment Upcoming Encounters Date Type Department Care Team (Late st Contact Info) Description 11/26/2024 10:00 AM EDT Office Visit [facility] [address] Floor [address] [place] [address] Carolee Gr MD [address] [place] [phone] 05/03/2025 8:00 AM EST Appointment [facility] Ultrasound [address] [place] [phone] 2025 1:00 PM EST Office Visit [facility] Otolaryngology [address]rd [place] [address] Rudy Andersen MD [address] [place] [address] 05/13/2025 8:10 AM EST Office Visit [facility] Urology [address] [place] [address] Cheyenne Mitchell APRN, DNP [address] [place] [phone] documented as of this encounter Procedures Procedure [...] - 99 mg/dL 10/07/2024 2:40 PM EDT [facility] Comment:Accuracy of [...] for testing. Comment 10/07/2024 2:40 PM EDT [facility] Baseball Winder ID Ester Mcwilliams 10/07/2024 2:40 PM EDT [facility] Device ID [id number] 10/07/2024 2:40 PM EDT [facility] Specimen Type POC Capillary 10/07/2024 2:40 PM EDT [facility] Blood Capillary blood specimen / Unknown 10/07/2024 2:39 PM EDT 10/07/2024 2:40 PM EDT Rudy Andersen MD LAB POINT OF CARE TE ST DOCKED DEVICE UNSOLICITED RESULTS Final Result [facility] [address] [place] [address] * Surgical Pathology Exam (10/07/2024 2:23 PM EDT) Case Report Surgical Pathology Case: [id number] Authorizing Provider: Rudy Andersen MD Collected: 10/07/2024 1423 Ordering Location: [facility] Received: 10/07/2024 1625 Surgery Pathologist: Katina Funez MD Specimen: Larynx, post crycoid mucosa 10/09/2024 2:56 PM EDT [facility] Final Diagnosis A. POST CRYCOID MUCOSA, BIOPSY: - BENIGN SQUAMOUS EPITHELIUM WITH SUBEPITHELIAL EDEMA AND MILD CHRONIC INFLAMMATION 10/09/2024 2:56 PM EDT [facility] at 1456 EDT Clinical Information Dysphagia, unspecified type [R13.10] 10/09/2024 2:56 PM EDT [facility] Gross Description A. POST CRYCOID MUCOSA Received in formalin labeled p ost cricoid mucosa , is 1 pink-chapman soft tissue fragment measuring 0.7 cm in greatest dimension. Entirely submitted in cassette A1. Cold Time: <1m Michelle B Petterafa 10/09/2024 2:56 PM EDT [facility] Note: A resident was involved in the service. I attest I examined the relevant preparations for the specimens and confirmed the diagnosis or interpretation. 10/09/2024 2:56 PM EDT [facility] Tissue Laryngeal structure / Unknown 10/07/2024 2:23 PM EDT 10/07/2024 4:25 PM EDT Comment:Pre-op diagnosis: Dysphagia, unspecified type [R13.10] us Rudy Andersen MD LAB PATHOLOGY ORDERABLES Final R esult [facility] [address] [place] [address] * (ABNORMAL) Blood gas, venous (10/07/2024 12:49 PM EDT) pH, Venous 7.35 7.32 - 7.43 LAB HEMATOLOGY METHOD 10/07/2024 12:57 PM EDT [facility] pCO2, Venous 60(HH) 40 - 55 mmHg LAB HEMATOLOGY METHOD 10/07/2024 12:57 PM EDT [facility] pO2, Venous 22(L) 25 - 40 mmHg LAB HEMATOLOGY METHOD 10/07/2024 12:57 PM EDT [facility] SO2, Measured, Venous 27(L) 65 - 80 % LAB HEMATOLOGY METHOD 10/07/2024 12:57 PM EDT [facility] Base Excess, Venous 6.0(H) -2.0 - 3.0 mmol/L LAB HEMATOLOGY METHOD 10/07/2024 12:57 PM EDT [facility] Bicarbonate, Calculated, Venous 33(H) 22 - 26 mmol/L LAB HEMATOLOGY METHOD 10/07/2024 12:57 PM EDT [facility] Hematocrit, Whole Blood 29.3(L) 40.0 - 51.0 % LAB HEMATOLOGY METHOD 10/07/2024 12:57 PM EDT [facility] Sodium, Whole Blood 145 136 - 145 mmol/L LAB HEMATOLOGY METHOD 10/07/2024 12:57 PM EDT [facility] Potassium, Whole Blood 4.4 3.6 - 4.9 mmol/L LAB HEMATOLOGY METHOD 10/07/2024 12:57 PM EDT [facility] Chloride, Whole Blood 103 97 - 107 mmol/L LAB HEMATOLOGY METHOD 10/07/2024 12:57 PM EDT [facility] Glucose, Whole Blood 117(H) 74 - 99 mg/dL LAB HEMATOLOGY METHOD 10/07/2024 12:57 PM EDT [facility] Lactate, Venous, Whole Blood 0.7 0.5 - 2.2 mmol/L LAB HEMATOLOGY METHOD 10/07/2024 12:57 PM EDT [facility] Ionized Calcium, Whole Blood 4.6 4.6 - 5.1 mg/dL LAB HEMATOLOGY METHOD 10/07/2024 12:57 PM EDT [facility] Blood Venous blood specimen / Unknown Venipuncture / Unknown 10/07/2024 12:49 PM EDT 10/07/2024 12:55 PM EDT us Casie Baker MD LAB BLOOD ORDERABLES Final Re sult [facility] [address] [place] [address] * (ABNORMAL) POCT glucose meter (10/07/2024 12:33 PM EDT) POCT Glucose 106(H) 74 - 99 mg/dL 10/07/2024 12:35 PM EDT [facility] Comment:Accuracy of a [...] for testing. Comment 10/07/2024 12:35 PM EDT [facility] Baseball Winder ID Jolene Terry 10/07/2024 12:35 PM EDT [facility] Device ID [id number] 10/07/2024 12:35 PM EDT [facility] Specimen Type POC Capillary 10/07/2024 12:35 PM EDT [facility] Blood Capillary blood specimen / Unknown 10/07/2024 12:33 PM EDT 10/07/2024 12:35 PM EDT Rudy Andersen MD LAB POINT OF CARE TE ST DOCKED DEVICE UNSOLICITED RESULTS Final Result Performing Organization Address City/State/[facility] Co de Phone Number [facility] [address] [place] [address] documented in this encounter Visit Diagnoses Diagnosis Dysphagia, unspecified type Dysphagia, unspecified type documented in this encounter [...] depression oxymetazoline (Afrin) 0.05 % nasal spray As needed, Starting on Sat10/07/24 at 1342, Until Sat10/07/24 at 1434, Routine, Intraprocedure Given 10/07/2024 1:42 PM EDT 15 mL Other sodium chloride 0.9 % infusion 20 mL/hr, [...] needed, Starting on Sat10/07/24 at 1342, Until Sat10/07/24 at 1434, Routine, Intraprocedure 1342 (Given - [...] documented as of this encounter Care Teams Quality Assurance Lab Technician Relationship Specialty Start Date End Date Oz Ramos MD [address] [place] [address] [address] [place] [address] PCP - General 10/07/20 John Joseph MD [address] [place] [address] Consulting Physician Urology 02/04/23 Cheyenne Mitchell, ADULT PROTECTIVE CASEWORKER, DNP [address] [place] [phone] Nurse Practitioner Urology 05/13/24 documented as of this encounter
--- OUTSIDE RECORDS SUMMARY | 2024-10-07 13:34 | XMS_ITS | Encounter Summary ---
Author Organization [facility] Address [address] [place] [address] Care Team Providers Care Cork Insulator Helper Name Role Phone zO Ramos MD Primary Care Provider [phone] John Joseph MD Unavailable [phone] Cheyenne Mitchell APRN, [facility] Unavailable [phone] Reason for Visit * Auth/Cert (Routine) Specialty Diagnoses / Procedures Referred By Titi chinchilla Referred To Contact Diagnoses Dysphagia, unspecified type Dysphagia, unspecified type [R13.10] Procedures AL LARYNGOSCOPY,DIRCT,OP SCOP,EXC TUMR AL LARYNGOSCOPY,DIRECT,SCOPE,INJ CORDS AL ESOPHAGOSCOPY FLEX BALLOON DILAT <30 MM DIAM AL DEXAMETHASONE SODIUM PHOS SUSPENSION MICROLARYNGOSCOPY WITH LYSIS OF WEB, INJECTION DECARDON 10mg/ml 1 ml TO PHARYNX/ESOPHAGEAL STRICTURE, FLEXIBLE ESOPHAGOSCOPY WITH BALLOON DILATION . Rudy Andersen MD [address] [facility] [address] [place] [address] Phone: tel: fax: [facility] [address] [place] [address] Phone: tel: Referral ID Status Reason Start Date Expiration Date Visits Re quested Visits Authorized [id number] 1 1 Encounter Details Date Type Department Care Team (Late st Contact Info) Description 10/07/2024 1:34 PM EDT Anesthesia Event [facility] [address] [place] [address] Casie Baker MD [address] [place] [id number] Leo Marinelli [address] [place] [id number] Anesthesia Record Procedure Summary Procedure Name Responsible [...] acknowledgement of understanding. 1437 An Stop Meds Name Total ondansetron (Zofran) injection 2 mg/mL 4 mg dexamethasone (Decadron) injection 4 mg/ mL 8 mg fentaNYL (Sublimaze) injection 50 mcg/mL 50 mcg lidocaine PF (Xylocaine-MPF) 2% 60 mg propofol (Diprivan) injection 10 mg/mL 8 0 mg rocuronium (ZeMuron) injection 10 mg/mL 30 mg sugammadex (Bridion) injection 100 mg/mL 100 mg ampicillin-sulbactam 3 (2-1) g 3 g ePHEDrine injection prefilled syringe 5 mg/mL 7.5 mg lactated Ringer's infusion 400 mL * Agents No agents on file. * [...] Ultimately able to pass Bougie and 6.0 PARCEL POST TRUCK DRIVER tube passed over. Dentition in preoperative condition. [...] 0 08/26/2024 Housing Stability Vital Sign Answer Hetah e Recorded In the last 12 months, was t here a time when you were not able to pay the mortgage or rent on time? No 06/19/2024 In the past 12 months, how m any times have you moved where you were living? 1 06/19/2024 At any time in the past 12 m [facility], were you homeless or living in a alf (including now)? No 06/19/2024 CAGE ASSESSMENT Answer [...] drink first t jeff in the morning (EYE-MATERIALS MGMT TECH) to steady your nerves or to get [...] on file documented as of this encounter Functional Status * Calculated C-SSRS [...] (Lifetime) No 12:39 PM EDT Day, Jolene Salmeorn RN documented as of this encounter Miscellaneous Notes * Anesthesia Postprocedure Evaluation - eLo Marinelli DO - 10/07/2024 2:37 PM EDT Patient: Phillip Briggs Anesthesia Type: general Vitals Value Taken Time BP 164/77 10/07/24 14:35 Temp Normothermic 10/07/24 14:37 Pulse 64 10/07/24 14:36 Resp 12 10/07/24 14:37 SpO2 100 % 10/07/24 14:36 Vitals shown include unfiled device data. Anesthesia Post Evaluation Patient location during evaluation: PACU Level of consciousness: awake and responsive to physical stimuli Pain management: adequate (pain score 0-3) Airway patency: natural airway Cardiovascular status: acceptable and hemodynamically stable Respiratory status: acceptable, spontaneous ventilation, unassisted, nonlabored ventilation and face mask Hydration status: acceptable Nausea/Vomiting: No No notable events documented. Cosigned by Casie Baker MD at 10/08/2024 6:50 AM EDT Associated attestation - Casie Baker MD - 10/08/2024 6:50 AM EDT I agree with the findings and care plan documented in the postprocedure evaluation note. * Anesthesia Procedure Notes - Leo Marinelli DO - 10/07/2024 2:02 PM EDT Associated Order(s): Airway Airway Date/Time: 10/07/2024 1:57 PM Reason: elective Difficult airway General Information and Staff Patient location during procedure: OR Anesthesiologist: Casie Baker MD Resident: Leo Marinelli DO Performed: Resident Patient Condition Indications for airway management: anesthesia Patient position: sniffing Final Airway Details Final airway type: endotracheal airway Successful airway: ETT and PARCEL POST TRUCK DRIVER Cuffed: yes Successful intubation technique: video laryngoscopy Adjuncts used in placement: intubating stylet and Bougie Endotracheal tube insertion site: oral Blade type: LoPro S3. ETT size (mm): 6.0 Cormack-Lehane Classification: grade IIb - view of arytenoids or posterior of glottis only Placement verified by: chest auscultation and capnometry Measured from: lips ETT to lips (cm): 23 Additional Comments Difficult intubation due to very limited neck mobility in setting of prior neck radiation. Grade 2bview with VL LoPro S3. Very anterior chords. Difficulty passing Bougie due to anterior nature of cords. Ultimately able to pass Bougie and 6.0 PARCEL POST TRUCK DRIVER tube passed over. Dentition in preoperative condition. Cosigned by Casie Baker MD at 10/07/2024 2:12 PM EDT Associated attestation - Casie Baker MD - 10/07/2024 2:12 PM EDT I was present during all critical and dwyer portions of the procedure(s) and immediately available [facility] services the entire duration. See resident note for details. * Anesthesia Preprocedure Evaluation - Casie Baker MD - 10/07/2024 12:42 PM EDT Images from the original note were not included. Patient: Phillip Briggs Procedure Information Date/Time: 10/07/24 1315 Procedures: SUSPENSION MICROLARYNGOSCOPY WITH LYSIS OF WEB, INJECTION DECARDON 10mg/ml 1 ml TO PHARYNX/ESOPHAGEAL STRICTURE, FLEXIBLE ESOPHAGOSCOPY WITH BALLOON DILATION (Bilateral) . (Bilateral) Location: [facility] Surgeons: Rudy Andersen MD Relevant Problems /Renal (+) CORY (acute kidney injury) (CMS/HCC) (+) ESRD (end stage renal disease) (CMS/HCC) (+) Kidney lesion, [place], left ROS Anesthesia: history of previous anesthesia. Does not have a history of anesthetic complications. Cardiovascular: hypertension: is poorly controlled. Respiratory: Negative respiratory ROS. HEENT: hearing loss. HEENT additional comments: Wears hearing aids. Neurological: TIA. Neuro additional comments: TIA in 2013 and 2018, no permanent changes. Has left carotid stent. Gastrointestinal: Negative GI ROS.malnourished and weight loss. Genitourinary: dialysis: last treatment was < 1 week ago. chronic renal disease: ESRD Endocrine/Metabolic: diabetes mellitus. 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 Additional Equipment Requests documented in this encounter Plan of Treatment Upcoming Encounters Date Type Department Care Team (Late st Contact Info) Description 11/26/2024 10:00 AM EDT Office Visit [facility] [address] [place] [address] Carolee Gr MD [address] [place] [address] 05/03/2025 8:00 AM EST Appointment [facility] Ultrasound [address] [place] [address] 2025 1:00 PM EST Office Visit [facility] Otolaryngology [address] [place] [address] Rudy Andersen MD [address] [place] [address] 05/13/2025 8:10 AM EST Office Visit [facility] Urology [address] [place] [address] Cheyenne Mitchell P, FOOD SAFETY DIRECTOR, DNP [address] [place] [address] documented as of this encounter Procedures Procedure Name Priority Date/Time Associated Diagnosis Comments PB ANESTHESIA PLACEHOLDER Routine 10/07/2024 1:57 PM EDT AL AN ELECTIVE ENDOTRACHEAL AIRWAY Routine 10/07/2024 1:57 PM EDT documented in this encounter Results * AL AN ELECTIVE ENDOTRACHEAL AIRWAY, PB ANESTHESIA PLACEHOLDER (10/07/2024 1:57 PM EDT) Narrative Casie Baker MD - 10/07/2024 1:57 PM EDT Casie Baker MD 10/07/2024 2:12 PM Airway Date/Time: 10/07/2024 1:57 PM Reason: elective Difficult airway General Information and Staff Patient location during procedure: OR Anesthesiologist: Casie Baker MD Resident: Leo Marinelli DO Performed: Resident Patient Condition Indications for airway management: anesthesia Patient position: sniffing Final Airway Details Final airway type: endotracheal airway Successful airway: ETT and PARCEL POST TRUCK DRIVER Cuffed: yes Successful intubation technique: video laryngoscopy Adjuncts used in placement: intubating stylet and Bougie Endotracheal tube insertion site: oral Blade type: LoPro S3. ETT size (mm): 6.0 Cormack-Lehane Classification: grade IIb - view of arytenoids or posterior of glottis only Placement verified by: chest auscultation and capnometry Measured from: lips ETT to lips (cm): 23 Additional Comments Difficult intubation due to very limited neck mobility in setting of prior neck radiation. Grade 2b view with VL LoPro S3. Very anterior chords. Difficulty passing Bougie due to anterior nature of cords. Ultimately able to pass Bougie and 6.0 PARCEL POST TRUCK DRIVER tube passed over. Dentition in preoperative condition. us Casie Baker MD ANESTHESIA ORDERABLES Final R esult documented in this encounter Visit Diagnoses Not on filedocumented in this encounter Administered Medications Inactive Administered Medications - up to 3 most recent administrations Medication Order MAR Action Action Date Dose Rate Site ampicillin-sulbactam (Unasyn) injection Intravenous, As needed, Starting on Sat10/07/24 at 1409, Until Sat10/07/24 at 1437, Routine, Anesthesia Intraprocedure Given 10/07/2024 2:00 PM EDT 3 g dexamethasone (Decadron) injection Intravenous, As needed, Starting on Sat10/07/24 at 1402, Until Sat10/07/24 at 1437, Routine, Anesthesia Intraprocedure Given 10/07/2024 2:02 PM EDT 8 mg ePHEDrine Sulfate (Akovaz) injection Intravenous, As needed, Starting on Sat10/07/24 at 1412, Until Sat10/07/24 at 1437, Routine, Anesthesia Intraprocedure Given 10/07/2024 2:12 PM EDT 7.5 mg fentaNYL (Sublimaze) injection Intravenous, As needed, Starting on Sat10/07/24 at 1338, Until Sat10/07/24 at 1437, Routine, Anesthesia Intraprocedure Given 10/07/2024 1:38 PM EDT 50 mcg lactated Ringer's infusion Intravenous, Continuous PRN, Starting on Sat10/07/24 at 1325, Until Sat10/07/24 at 1437, Routine New Bag 10/07/2024 1:25 PM EDT lidocaine PF (Xylocaine) 2 % injection Intravenous, As needed, Starting on Sat10/07/24 at 1338, Until Sat10/07/24 at 1437, Routine, Anesthesia Intraprocedure Given 10/07/2024 1:38 PM EDT 60 mg ondansetron (Zofran) injection Intravenous, As needed, Starting on Sat10/07/24 at 1402, Until Sat10/07/24 at 1437, Routine, Anesthesia Intraprocedure Given 10/07/2024 2:02 PM EDT 4 mg propofol (Diprivan) injection Intravenous, As needed, Starting on Sat10/07/24 at 1340, Until Sat10/07/24 at 1437, Routine, Anesthesia Intraprocedure Given 10/07/2024 1:40 PM EDT 80 mg rocuronium (ZeMuron) injection Intravenous, As needed, Starting on Sat10/07/24 at 1342, Until Sat10/07/24 at 1437, Routine, Anesthesia Intraprocedure Given 10/07/2024 1:42 PM EDT 30 mg sugammadex (Bridion) 100 MG/ML injection Intravenous, As needed, Starting on Sat10/07/24 at 1420, Until Sat10/07/24 at 1437, Routine, Anesthesia Intraprocedure Given 10/07/2024 2:20 PM EDT 100 mg documented in this encounter Additional Health Concerns Assessment Noted Time PHQ-9 Depression Total Score: 0 08/27/19 12:37 PM EDT A fall risk assessment has been complete d for the patient 08/26/2024 12:38 PM EDT A Body Mass Index follow-up plan has been documented for the patient 09/25/2024 6:16 AM EDT documented as of this encounter Care Teams Cork Insulator Helper Relationship Specialty Start Date End Date Oz Ramos MD [address] [place] [address] #1 #1 ELO Damian [id number] PCP - General 10/07/20 John Joseph MD [address] [place] [address] Consulting Physician Urology 02/04/23 Cheyenne Mitchell APRN, DNP [address] [place] [address] Nurse Practitioner Urology 05/13/24 documented as of this encounter
--- OUTSIDE RECORDS SUMMARY | 2024-10-12 11:59 | XMS_ITS | Encounter Summary ---
Author Organization [facility] Address [address] [place] [address] Care Team Providers Care Battery Hand Name Role Phone Oz Ramos MD Primary Care Provider [phone] John Joseph MD Unavailable [phone] Cheyenne Mitchell APRN, DEVI Unavailable [phone] Reason for Referral * Imaging (Routine) - Closed Specialty Diagnoses / Procedures Referred By Contac t Referred To Contact Radiology Diagnoses Left renal mass Procedures US Renal Complete Ruben Ramsay MD [address] [address] Phone: tel: fax: Referral ID Status Reason Start Date Expiration Date Visits Re quested Visits Authorized [id number] Closed 08/26/2024 02/25/2026 1 1 Reason for Visit * Imaging (Routine) - Closed Specialty Diagnoses / Procedures Referred By Contac t Referred To Contact Radiology Diagnoses Left renal mass Procedures US Renal Complete Ruben Ramsay MD [address] [address] Phone: tel: fax: Referral ID Status Reason Start Date Expiration Date Visits Re quested Visits Authorized [id number] Closed 08/26/2024 02/25/2026 1 1 Encounter Details Date Type Department Care Team (Latest Contact Info) Description 10/12/2024 11:59 AM EDT - 10/12/2024 11:59 PM EDT Hospital Encounter [facility] Ultrasound [address] [place] [address] Left renal mass Discharge Disposition: Home or Self Care Social [...] any time in the past 12 m [facility], were you homeless or living in a retirement (including now)? No 06/19/2024 CAGE ASSESSMENT Answer [...] drink first t jeff in the morning (EYE-BILINGUAL OPERATOR) to steady your nerves or to get rid of a hangover? 0 06/18/2024 CAGE Questionnaire Score 0 025 Utilities Answer Date Recorded In the past 12 months has th e [employer], [employer], oil, or water [employer] threatened to shut off services in your home? No 06/19/2024 PHQ-2A Answer Date Recorded Patient Health Questionnaire-2 Score 0 10/10/2022 Sex and Gender Information Value Date Recorded Sex Assigned at Male 06/26/2024 2:30 PM EST Legal Sex Male 8:08 PM EDT Gender Identity Not on file Sexual Orientation Not on file documented as of this encounter Medications at Time of Discharge [...] Take 1 capsule by mouth nightly. 02/08/2021 PreviDent 5000 Booster Plus 1.1 % paste APPLY A THIN RIBBON TO THE TOOTHBRUSH AND BRUSH THOROUGHLY ONCE DAILY 10/12/2024 valsartan (Diovan) 160 MG tablet Take 1 tablet (160 mg) by mouth 1 (one) time each day. 30 tablet 06/25/2024 NIFEdipine CC (Adalat CC) 60 MG 24 hr tablet Take 1 tablet by mouth daily before breakfast. Do not crush, chew, or split. 90 tablet 09/08/2024 5 documented as of this encounter Plan of Treatment Upcoming Encounters Date Type Department Care Team (Late st Contact Info) Description 11/26/2024 10:00 AM EDT Office Visit [facility] [address] [facility] [address] [place] [address] Carolee Gr MD [address] [facility] [address] [place] [address] 05/03/2025 8:00 AM EST Appointment [facility] Ultrasound [address] [place] [address] 2025 1:00 PM EST Office Visit [facility] Otolaryngology [address] [place] [address] Rudy Andersen MD [address] [place] [address] 05/13/2025 8:10 AM EST Office Visit [facility] Urology [address] [place] [address] Cheyenne Mitchell, ELIZABETH, DEVI [address] [place] [address] documented as of this encounter Procedures Procedure Name Priority Date/Time Associated Diagnosis Comments US RENAL COMPLETE Routine 10/12/2024 12: 37 PM EDT Left renal mass documented in this encounter Results * US Renal Complete (10/12/2024 12:37 PM EDT) Anatomical Region Laterality Modality Kidney Ultrasound Impressions 10/12/2024 1:47 PM EDT Multiple bilateral simple renal cysts. Previously described soft tissue lesions arising from the bilateral superior poles are not well evaluated on this study. Recommend MR abdomen with and without IV contrast for further evaluation. CRITICAL RESULT: No. COMMUNICATION: Per this written report. Drafted by Xochilt Ly DO on 10/12/2024 1:28 PM Final report signed by Xochilt Ly DO on 10/12/2024 1:47 PM Narrative 10/12/2024 1:47 PM EDT CLINICAL INDICATION: left renal mass TECHNIQUE: Multiplanar static and cine anderson scale ultrasound images of the kidneys and urinary bladder were obtained, accompanied by selective color Doppler ultrasound images. COMPARISON: CT abdomen/pelvis without contrast 05/28/2024 FINDINGS: Right Kidney: Normal in size and echogenicity. Length 9.1 cm. No hydronephrosis or obvious calculi. There is a simple cyst within the superior pole measuring 1.0 cm. Left Kidney: Normal in size and echogenicity. Length 9.3 cm. No hydronephrosis or obvious calculi. There are multiple simple cysts, the largest measuring 2.4 cm. Urinary bladder: Nondistended. Procedure Note Xochilt Ly DO - 10/12/2024 CLINICAL INDICATION: left renal mass TECHNIQUE: Multiplanar static and cine anderson scale ultrasound images of the kidneysand urinary bladder were obtained, accompanied by selective color Dopplerultrasound images. COMPARISON: CT abdomen/pelvis without contrast 05/28/2024 FINDINGS: Right Kidney: Normal in size and echogenicity. Length 9.1 cm. Nohydronephrosis or obvious calculi. There is a simple cyst within thesuperior pole measuring 1.0 cm. Left Kidney: Normal in size and echogenicity. Length 9.3 cm. Nohydronephrosis or obvious calculi. There are multiple simple cysts, thelargest measuring 2.4 cm. Urinary bladder: Nondistended. IMPRESSION: Multiple bilateral simple renal cysts. Previously described soft tissue lesions arising from the bilateralsuperior poles are not well evaluated on this study. Recommend MR abdomenwith and without IV contrast for further evaluation. CRITICAL RESULT: No. COMMUNICATION: Per this written report. Drafted by Xochilt Ly DO on 10/12/2024 1:28 PM Final report signed by Xochilt Ly DO on 10/12/2024 1:47 PM us Ruben Ramsay MD IMG US PROCEDURES Final Result documented in this encounter Visit Diagnoses Diagnosis Left renal mass Unspecified disorder of kidney and ureter documented in this encounter Additional Health Concerns Assessment Noted Time PHQ-9 Depression Total Score: 0 08/27/19 25 12:37 PM EDT A fall risk assessment has been complete d for the patient 08/26/2024 12:38 PM EDT A Body Mass Index follow-up plan has been documented for the patient 09/25/2024 6:16 AM EDT documented as of this encounter Care Teams Battery Hand Relationship Specialty Start Date End Date Oz Ramos MD [address] [place] [address] #1 #1 E[place] Damian [id number] PCP - General 10/07/20 John Joseph MD [address] [place] [address] Consulting Physician Urology 02/04/23 Cheyenne Mitchell APRN, DNP [address] [place] [address] Nurse Practitioner Urology 05/13/24 documented as of this encounter
--- OUTSIDE RECORDS SUMMARY | 2024-10-22 08:34 | XMS_ITS | Encounter Summary ---
Author Organization [facility] Address [address] [place] [address] Care Team Providers Care Pole Cutter Name Role Phone Oz Ramos MD Primary Care Provider [phone] John Joseph MD Unavailable [phone] Cheyenne Mitchell APRN, DNP Unavailable [phone] Reason for Referral * Imaging (Routine) - Closed Specialty Diagnoses / Procedures Referred By Contac t Referred To Contact Cardiology Diagnoses ESRD (end stage renal disease) ([facility]) Procedures VAS US Hemodialysis Access Left Carolee Gr MD [address] [address] Phone: tel: fax: Referral ID Status Reason Start Date Expiration Date V isits Requested Visits Authorized [id number] Closed Perform Procedure 09/11/2024 03/13/2026 1 1 Reason for Visit * Imaging (Routine) - Closed Specialty Diagnoses / Procedures Referred By Contac t Referred To Contact Cardiology Diagnoses ESRD (end stage renal disease) ([facility]) Procedures VAS US Hemodialysis Access Left Carolee Gr MD [address] [address] Phone: tel: fax: Referral ID Status Reason Start Date Expiration Date V isits Requested Visits Authorized [id number] Closed Perform Procedure 09/11/2024 03/13/2026 1 1 Encounter Details Date Type Department Care Team (Latest Contact Info) Description 10/22/2024 8:34 AM EDT - 10/22/2024 11:59 PM EDT [facility] [address] [facility] 5th Floor [address], [address] [place] [address] ESRD (end stage renal disease) ([facility]) Discharge Disposition: Home or Self Care Social [...] Date Recorded Patient Health Questionnaire-2 Score 0 10/30/2024 Hunger Vital Sign Answer Date Recorded Within [...] Answer Date Recorded Patient Health Questionnaire-9 Score 4 10/30/2024 Housing Stability Vital Sign Answer Heath e Recorded In the last 12 months, was t here a time when you were not able to pay the mortgage or rent on time? No 06/19/2024 In the past 12 months, how m any times have you moved where you were living? 1 06/19/2024 At any time in the past 12 m [facility], were you homeless or living in a [facility] (including now)? No 06/19/2024 CAGE ASSESSMENT Answer [...] drink first t jeff in the morning (EYE-VIDEO SURVEILLANCE TECHNICIAN) to steady your nerves or to get [...] this encounter Medications at Time of Discharge acetaminophen (Tylenol) 160 MG/5ML liquid Take 20.3 mL by mouth every 4 hours as needed for moderate pain. 120 mL 2 10/22/2024 aspirin 81 MG EC tablet Take 1 [...] Description 11/26/2024 10:00 AM EDT Office Visit [facility] [address] [place] [phone] Carolee Gr MD [address] [place] [address] 05/03/2025 8:00 AM EST Appointment [facility] Ultrasound [address] [place] [address] 2025 1:00 PM EST [facility] [address], [address] [place] [address] Rudy Andersen MD [address] [place] [address] 05/13/2025 8:10 AM EST Office Visit [facility] Urology [address], [address] [place] [address] Cheyenne Mitchell, ELIZABETH, DNP [address] [place] [address] documented as of this encounter Procedures Procedure Name Priority Date/Time Associated Diagnosis Comments VAS US HEMODIALYSIS ACCESS DUPLEX Routine 10/22/2024 9:42 AM EDT ESRD (end stage renal disease) ([facility]) documented in this encounter Results * VAS US Hemodialysis Access Left (10/22/2024 9:42 AM EDT) Anatomical Region Laterality Modality Vascular Ultrasound Impressions 10/23/2024 4:30 PM EDT patient Brachiobasilic AVF. Hemodynamically significant stenosis is identified at the anastomosis. Volume flows are within normal limits. Avascular hypoechoic structure is noted at the distal humerus adjacent to anastomosis measuring 1.35 cm x 0.72 cm. COMMUNICATION: Per this written report. Preliminary report signed by Kelly Gilbert on 10/22/2024 3:10 PM By electronically signing this report, I, the attending physician, attest that I have personally reviewed the images/data for the above examination(s) and I agree with the final edited report. Drafted by Kelly Gilbert on 10/22/2024 10:00 AM Final report signed by Salma Dc MD on 10/23/2024 4:30 PM Narrative 10/23/2024 4:30 PM EDT CLINICAL INDICATION: post op Brachiobasilic AVF placed on 09/11/2024 TECHNIQUE: Non-invasive, real time duplex exam of the hemodialysis access with Doppler ultrasonic waveform and spectral analysis was performed. COMPARISON: none FINDINGS: Hemodialysis access duplex demonstrates the following: Avascular hypoechoic structure is noted at the distal humerus adjacent to anastomosis measuring 1.35 cm x 0.72 cm. Type of AV Fistula: Left arm brachiobasilic AVF Flow Volumes: Arterial: 2cm above anastomosis: 727 cc/min Venous: 2 cm above anasto: Unable to obtain due to turbulence. Mid upper arm: 830 cc/min Flow Velocities: Radial A (distal): 74 cm/s Ulnar A (distal): 34 cm/s Brachial Artery: Distal: 147 cm/s At anastomosis: 157 cm/s 2 cm above anastomosis: 149 Basilic Vein: At anastomosis: 775/372 cm/s velocity ratio: 5.2 2cm above anastomosis: 470 cm/s Distal arm: 351 cm/s branch noted measuring 0.40 cm x 0.41 cm Mid arm: 115 cm/s Prox arm: 47 cm/s At confluence: 59 cm/s Axillary Vein: At confluence: 50 cm/s Procedure Note Salma Dc MD - 10/23/2024 CLINICAL INDICATION: post op Brachiobasilic AVF placed on 09/11/2024 TECHNIQUE: Non-invasive, real time duplex exam of the hemodialysis access withDoppler ultrasonic waveform and spectral analysis was performed. COMPARISON: none FINDINGS: Hemodialysis access duplex demonstrates the following: Avascular hypoechoic structure is noted at the distal humerus adjacent toanastomosis measuring 1.35 cm x 0.72 cm. Type of AV Fistula: Left arm brachiobasilic AVF Flow Volumes: Arterial: 2cm above anastomosis: 727 cc/min Venous: 2 cm above anasto: Unable to obtain due to turbulence. Mid upper arm: 830 cc/min Flow Velocities: Radial A (distal): 74 cm/s Ulnar A (distal): 34 cm/s Brachial Artery: Distal: 147 cm/s At anastomosis: 157 cm/s 2 cm above anastomosis: 149 Basilic Vein: At anastomosis: 775/372 cm/s velocity ratio: 5.2 2cm above anastomosis: 470 cm/s Distal arm: 351 cm/s branch noted measuring 0.40 cm x 0.41 cm Mid arm: 115 cm/s Prox arm: 47 cm/s At confluence: 59 cm/s Axillary Vein: At confluence: 50 cm/s IMPRESSION: patient Brachiobasilic AVF. Hemodynamically significant stenosis isidentified at the anastomosis. Volume flows are within normal limits.Avascular hypoechoic structure is noted at the distal humerus adjacent toanastomosis measuring 1.35 cm x 0.72 cm. COMMUNICATION: Per this written report. Preliminary report signed by Kelly Gilbert on 10/22/2024 3:10 PM By electronically signing this report, I, the attending physician, attestthat I have personally reviewed the images/data for the aboveexamination(s) and I agree with the final edited report. Drafted by Kelly Gilbert on 10/22/2024 10:00 AM Final report signed by Salma Dc MD on 10/23/2024 4:30 PM Carolee Gr MD CV VASCULAR PROCEDURES Final Re sult documented in this encounter Visit Diagnoses Diagnosis ESRD (end stage renal disease) ([facility]) End stage renal disease documented in this encounter Additional Health Concerns Assessment Noted Time PHQ-9 Depression Total Score: 0 08/27/19 25 12:37 PM EDT A fall risk assessment has been complete d for the patient 10/22/2024 10:29 AM EDT A Body Mass Index follow-up plan has been documented for the patient 10/22/2024 11:03 AM EDT documented as of this encounter Care Teams Pole Cutter Relationship Specialty Start Date End Date Oz Ramos MD [address] [place] [address] [address]1 [address] [place] [address] PCP - General 10/07/20 John Joseph MD [address] [place] [address] Consulting Physician Urology 02/04/23 Cheyenne Mitchell APRN, DNP [address] [facility] [place] [address] Nurse Practitioner Urology 05/13/24 documented as of this encounter
--- OUTSIDE RECORDS SUMMARY | 2024-10-22 10:40 | XMS_ITS | Encounter Summary ---
Author Organization [facility] Address [address] [place] [address] Care Team Providers Care Petal Cutter Name Role Phone Oz Ramos MD Primary Care Provider [phone] John Joseph MD Unavailable [phone] Cheyenne Mitchell APRN [facility] Unavailable [phone] Reason for Visit * Reason Comments ESRD (end stage renal disease) * Consultation (Routine) - Closed Specialty Diagnoses / Procedures Referred By Contact Referred To Contact Vascular Surgery / Comprehensive Vascular Clinic Diagnoses ESRD (end stage renal disease) ([facility]) Carolee Gr MD [address] [facility] [address] [place] [address] Phone: tel:[phone] fax:[phone] [facility] [address] [place] [address] Phone: tel: fax: Referral ID Status Reason Start Date Expiration Date V isits Requested Visits Authorized [id number] Closed Specialty Services Required 09/11/2024 03/13/2026 1 1 Encounter Details Date Type Department Care Team (Latest Contact Info) Description 10/22/2024 10:40 AM EDT Office Visit [facility] [address] [place] [address] Carolee Gr MD [address] [place] [address] ESRD (end stage renal disease) ([facility]) Social History Tobacco Use Types Packs/Day Years Used Date Smoking Tobacco: Never Smokeless Tobacco: Never Tobacco Cessation:Counseling Given: Not Answered Alcohol Use Standard Drinks/Week Comments Never 0 [...] time in the past 12 m [facility], were you homeless or living in a snf (including now)? No 06/19/2024 CAGE ASSESSMENT Answer [...] drink first t jeff in the morning (EYE-WORM PICKER) to steady your nerves or to get rid of a hangover? 0 06/18/2024 CAGE Questionnaire Score 0 025 Utilities Answer Date Recorded In the past 12 months has [employer], gas, oil, or water company threatened to [...] Sign Reading Time Taken Comments Blood Pressure 118/56 10/22/2024 10:22 AM EDT RN notified Pulse 61 10/22/2024 10:22 AM EDT Temperature 36.1 C (97 F) 10/22/2024 10:22 AM EDT Respiratory Rate - - Oxygen Saturation 98% 10/22/2024 10:22 AM EDT Inhaled Oxygen Concentration - - Weight 57.6 kg (127 lb) 10/22/2024 10:22 AM EDT Height 180.3 cm (5' 11 ) 10/22/2024 10:22 AM EDT Body Mass Index 17.71 10/22/2024 10:22 AM EDT documented in this encounter Miscellaneous Notes * Progress Notes - Carolee Gr MD - 10/22/2024 10:40 AM EDT Dear Oz Ramos MD, HPI Mr. Briggs is an 84yoM with PMH of DM, HTN, CAD, TIA s/p left carotid stent, and ESRD on HD via right internal jugular TDC s/p left brachiobasilic AVF creation on 09/11/2024. Duplex with adequate flow in the fistula and nearby cyst versus lymphocele. Appears superficial enough for access. Will allow access and after successful will remove TDC. Vascular Surgery History: (Date - Procedure - Hospital - Doctor) 09/11/2024 - Left brachiobasilic AVF creation - Simón I personally and independently reviewed and interpreted the Vascular Lab Images from today's visit which showed: Duplex with adequate flow in the fistula and nearby cyst versus lymphocele. Superficial enough for access. His chronic comorbid conditions that impact our treatment planning include: I reviewed the following co-morbidities which are stable and controlled: Patient Active Problem List Diagnosis Date Noted ESRD (end stage renal disease) ([facility]) 08/13/2024 Kidney lesion, [place], left 06/24/2024 CORY (acute kidney injury) ([facility]) 05/28/2024 The following portions of the chart were reviewed this encounter and updated as appropriate: Tobacco Allergies Meds Problems Med Hx Surg Hx Fam Hx Subjective Review of Systems All other systems reviewed and are negative. Objective Physical Exam Constitutional: well developed, well nourished, and in no acute distress Eye: equal, round, and reactive Ears, Nose, Throat: normal atraumatic, no neck masses Respiratory: Normal expansion. Clear to auscultation. No rales, rhonchi, or wheezing. Cardiac: Heart sounds are normal. Regular rate and rhythm without murmur, gallop or rub. Abdomen: Soft, non-tender, normal bowel sounds; no bruits, organomegaly or masses. Musculoskeletal: normal strength, tone, and muscle mass, no deformities Psychiatric: oriented to time, place and person, mood and affect are within normal limits Neurologic: normal sensation and reflexes and motor intact Skin: [place], warm, well perfused Extremities: LUE with well-healed AVF and palpable thrill and palpable radial pulse Assessment/Plan In Summary: Nader Briggs is a 84 y.o. year old male who we saw today in clinic. I discussed the test interpretations and management with associated orders of the following medical conditions of: Problem List Items Addressed This Visit Genitourinary ESRD (end stage renal disease) ([facility]) We will see him back for: Follow up in 1 month (on 11/22/2024). The patient was counseled on the importance of: - strict diabetic glucose control - blood pressure monitoring - proper nutrition, exercise and maintaining a healthy weight. 84yoM with ESRD on HD s/p AVF creation. - Patient may use AVF for access, after 3 successful accesses contact the office to remove TDC - RX for liquid tylenol for pain as patient has issues with spitting up pills documented in this encounter Plan of Treatment Upcoming Encounters Date Type Department Care Team (Late st Contact Info) Description 11/26/2024 10:00 AM EDT Office Visit [facility] [address] [facility] 5th Floor [address] [place] [address] Carolee Gr MD [address] [place] [address] 05/03/2025 8:00 AM EST Appointment [facility] Ultrasound [address] [place] [address] 2025 1:00 PM EST Office Visit [facility] Otolaryngology [address] [place] [address] Rudy Andersen MD [address] [place] [address] 05/13/2025 8:10 AM EST Office Visit [facility] Urology [address] [facility] [address] [facility] [place] [address] Cheyenne Mitchell, SALES TRAINING REPRESENTATIVE, DNP [address] [facility] [address] [place] [address] documented as of this encounter Visit Diagnoses Diagnosis ESRD (end stage renal disease) ([facility]) End stage renal disease documented [...] documented as of this encounter Care Teams Petal Cutter Relationship Specialty Start Date End Date Oz Ramos MD [address] [place] [address] [address] [place] [address] PCP - General 10/07/20 John Joseph MD [address] [place] [address] Consulting Physician Urology 02/04/23 Cheyenne Mitchell, SALES TRAINING REPRESENTATIVE, DNP [address] [place] [address] Nurse Practitioner Urology 05/13/24 documented as of this encounter
--- OUTSIDE RECORDS SUMMARY | 2024-10-30 10:50 | XMS_ITS | Encounter Summary ---
Author Organization [facility] Address [address] [place] [address] Care Team Providers Care Loader Demolder Name Role Phone Oz Ramos MD Primary Care Provider [phone] John Joseph MD Unavailable [phone] Cheyenne Mitchell APRN, DNP Unavailable [phone] Reason for Visit * Reason Comments Dysphagia, unspecified * Consultation (Routine) - Closed Specialty Diagnoses / Procedures Referred By Titi chinchilla Referred To Contact Gastroenterology Diagnoses Dysphagia Ben Dobbins MD [address] [facility] [address] [place] [address] Phone: tel: fax: Referral ID Status Reason Start Date Expiration Date V isits Requested Visits Authorized [id number] Closed Specialty Services Required 08/05/2024 02/04/2026 1 1 Encounter Details Date Type Department Care Team (Late st Contact Info) Description 10/30/2024 10:50 AM EDT Office Visit [place] [facility] [address] [place] [address] Essence Nayak PA [address] [facility] [address] [place] [address] Pharyngeal dysphagia (Primary Dx) Social [...] any time in the past 12 m [facility], were you homeless or living in [...] drink first t jeff in the 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 0 06/18/2024 CAGE Questionnaire Score 0 025 Utilities Answer Date Recorded In the past 12 months has [employer], gas, oil, or water [employer] threatened to shut off services in your [...] extrinsic stricture (traversable).Repositioning of the jaw by BUILDING ATTENDANT allowed for passage of the diagnostic gastroscope [...] stricture (traversable). Repositioning of the jaw by BUILDING ATTENDANT allowed for passage of the diagnostic gastroscope [...] Description 11/26/2024 10:00 AM EDT Office Visit [facility] [address] [facility] [address] Floor [address] [place] [address] Carolee Gr MD [address] [facility] [address] [place] [address] 05/03/2025 8:00 AM EST Appointment [facility] Ultrasound [address] [place] [address] 2025 1:00 PM EST Office Visit [facility] Otolaryngology [address] [place] [address] Rudy Andersen MD [address] [facility] [address] [place] [phone] 05/13/2025 8:10 AM EST Office Visit [facility] Urology [address] [place] [address] Cheyenne Mitchell, CUSTOMER CARE ASSISTANT, DNP [address] [place] [address] documented as of this encounter Visit Diagnoses Diagnosis Pharyngeal dysphagia- Primary Dysphagia, pharyngeal phase documented in this encounter Additional Health Concerns Assessment Noted Time PHQ-9 Depression Total Score: 4 10/31/19 25 10:22 AM EDT A fall risk assessment has been complete d for the patient 10/30/2024 10:23 AM EDT A Body Mass Index follow-up plan has been documented for the patient 10/30/2024 11:00 AM EDT documented as of this encounter Care Teams Loader Demolder Relationship Specialty Start Date End Date Oz Ramos MD [address] [place] [address] [address] [place] [address] PCP - General 10/07/20 John Joseph MD [address] [place] [address] Consulting Physician Urology 02/04/23 Cheyenne Mitchell, ELIZABETH, DNP [address] [place] [address] Nurse Practitioner Urology 05/13/24 documented as of this encounter
--- OUTSIDE RECORDS SUMMARY | 2024-11-06 15:14 | XMS_ITS | Encounter Summary ---
Author Organization [facility] Address [address] [id number] Care Team Providers Care Rn Supplemental Name Role Phone Oz Ramos MD Primary Care Provider [phone] John Joseph MD Unavailable [phone] Cheyenne Mitchell APRN [facility] Unavailable [phone] Reason for Referral * Imaging (Routine) - Closed Specialty Diagnoses / Procedures Referred By Contac t Referred To Contact Radiology Diagnoses Dysphagia, unspecified type Procedures [place] Modified Barium Swallow Yadiel Thornton MD [address] [address] Phone: tel: fax: Referral ID Status Reason Start Date Expiration Date V isits Requested Visits Authorized [id number] Closed Perform Procedure 10/13/2024 04/14/2026 1 1 Reason for Visit * Imaging (Routine) - Closed Specialty Diagnoses / Procedures Referred By Contac t Referred To Contact Radiology Diagnoses Dysphagia, unspecified type Procedures FL Modified Barium Swallow Yadiel Thornton MD [address] [address] Phone: tel: fax: Referral ID Status Reason Start Date Expiration Date V isits Requested Visits Authorized [id number] Closed Perform Procedure 10/13/2024 04/14/2026 1 1 Encounter Details Date Type Department Care Team (Latest Contact Info) Description 11/06/2024 3:14 PM EDT - 11/06/2024 11:59 PM EDT Hospital Encounter [facility] Radiology [address] [place] [address] Socorro Cameron MS CCC-APPEALS REFEREE Dysphagia, oropharyngeal (Primary Dx); Dysphagia, unspecified type Discharge Disposition: Home or [...] any time in the past 12 m [facility], were you homeless or living in [...] drink first t jeff in the morning (EYE-BLOOD TYPER) to steady your nerves or to get rid of a hangover? 0 06/18/2024 CAGE Questionnaire Score 0 025 Utilities Answer Date Recorded In the past 12 months has th [email or web address], gas, oil, or water [employer] threatened to shut off services in your [...] encounter Miscellaneous Notes * Progress Notes - Socorro Cameron, MS [facility] - 11/06/2024 3:30 PM EDT [facility] Modified Barium Swallow Study Referring Physician: Dr. Yadiel Thornton Diagnosis: R13.12 Date: 11/06/2024 Pertinent Medical History: Nader Briggs is a 84 y.o. 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 He was hospitalized from 05/28/2024 to 06/04/2024 as well as from 06/18/2024 to 06/24/2024 due to Cr of 4.52. 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 Repeat EGD in July of 2024 revealed, mild extrinsic stricture just above the EUS, transversable with repositioning of the jaw, otherwise esophagus, stomach and duodenumnormal. ENT was then consulted. He underwent a suspension microlaryngoscopy and flexible esophagoscopy with biopsy and balloon dilation on 10/07/2024. Results of Previous Dysphagia Evaluations: [facility] inpatient on 06/01/2024: moderate pharyngeal dysphagia. During the pharyngeal phase, the patient demonstrated impairments affecting multiple aspects ofswallow efficiency. Swallow initiation was delayed, with residue observed in the pyriform sinuses an d laryngeal vestibule. Laryngeal elevation and anterior hyoid excursion were both partial, contributing to reduced airway protection. Epiglottic inversion was incomplete, and vestibule closure was not fully achieved, further increasing the risk of penetration. The pharyngeal stripping wave was diminished, and pharyngeal contraction was noted to be partial. Base of tongue retraction was incomplete, resulting in significant pharyngeal residue, particularly in the base of tongue, valleculae, lateral channels, posterior pharyngeal wall, and pyriform sinuses. Upper esophageal sphincter (UES) opening was partially distended. With regard to airway protection, the patient demonstrated penetration across all thin liquid trials (spoon, cup, and straw), as well as with nectar-thick liquids. Increased pharyngeal residue was noted with nectar- thick liquids when compared to thin liquids. Pudding and cracker trials were tolerated without penetration or aspiration; however, both resulted in pharyngeal residue. The cracker required a thin liquid wash to aid in clearance and swallow initiation. Giventhese findings, the patient chooses to continue with oral diet. The patient is recommended to follow an IDDSI Level 7 - Easy to Chew and IDDSI Level 0 - Thin diet. To optimize safety and efficiency, he should alternate bites and sips and take small bites and sips with each intake. Continued monitoring and compensatory strategies should be implemented to reduce aspiration risk and promote adequateclearance of pharyngeal residue. SUBJECTIVE Current Functional Status: Nader Briggs is currently consuming most regular solid consistencies and thin liquids. He reports he is able to take his medications better since the dilation. He states he continues to cough and choke with foods and liquids daily. He states his swallowing function worsens with his dentures in. He reports he is losing weight and not eating as much as he used to. He also endorses dysgeusia. He denies recent pneumonias. Functional Oral Intake Scale (FOIS) Level 5 = Total oral diet with multiple consistencies, but requiring special preparation or compensations OBJECTIVE Behavioral Characteristics: Alert, Cooperative Dentition: Edentulous Cranial Nerve Examination: Trigeminal (V): Jaw posture at rest: closed Jaw Range of Motion: adequate Jaw Deviation on Opening: None Facial (VII): Facial symmetry at rest: symmetrical Facial symmetry during movement: symmetrical Labial symmetry at rest: Symmetrical Labial ROM-Retraction:adequate Labial ROM-Protrusion: adequate Glossopharyngeal (IX): Palatal symmetry at rest:reduced bilateral Hypoglossal (XII): Lingual symmetry at rest: Symmetrical Lingual ROM: reduced Modified Barium Swallow Study Trialed Consistencies: Varibar Thin Liquid: 5-mL x2, 10-mL Varibar [place]-thick Liquid: 5-mL Puddin-mL via spoon Positioning during study: Seated and Standing Planes Viewed: Lateral and AP Oral Phase: Patient formed a good lip seal around the cup and spoon. Good lingual control of the bolus and prompt oral transit times were observed. Trace oral residue was noted across all consistencies. Pharyngeal Phase: Initiation of the pharyngeal swallow occurred at the level of the valleculae. Theepiglottis did not fully retroflex and reduced tongue base retraction, hyolaryngeal excursion, pharyngeal stripping wave, pharyngeal contraction pressures, and extent and duration of pharyngoesophageal segment opening were noted which resulted in diffuse pharyngeal residue across all consistencies.The entire nectar thick liquid and pudding bolus remained in the valleculae after the initial swallow. Patient required multiple swallows to clear the majority of the nectar thick liquid residue. Multiple swallows did not clear the pudding residue, but a liquid wash cleared the majority of the pudding residue. Penetration of thin and nectar thick liquids occurred during the swallow due to incomplete laryngeal vestibule closure and after the swallow when residue spilled into the laryngeal vestibule. Inconsistent penetration to the level of the true vocal folds occurred with thin and nectar thick liquids. Patient coughed in response to penetration to the level of the true vocal folds which cleared the majority of the material from the laryngeal vestibule. A left head turn and chin tuck did not improve swallow safety or efficiency, but instead resulted in aspiration. Patient coughed in response to aspiration, but the cough did not clear all of the material from the airway. Esophageal Clearance in Upright Position: 2-Esophageal retention with retrograde flow below the pharynoesophageal segment; Per radiologist note, Limited evaluation of the thoracic esophagus shows some esophageal stasis. There is limited visualization of the distal thoracic esophagus, there may be narrowing of the distal thoracic esophagus. Barium does enter the stomach. Modified Barium Swallow Impairment Oral Impairment Lip Closure 0-no labial escape Hold Position and Tongue Control 0-Cohesive bolus between tongue to palatal seal Bolus Preparation and Mastication Not assessed Bolus Transport and Lingual Motion 0-Brisk tongue motion Oral Residue 1-Trace residue lining oral structures Location Tongue Initiation of Pharyngeal Swallow 1-Bolus head in valleculae Pharyngeal Impairment Soft Palate elevation 0-No bolus between soft palate Laryngeal elevation 1-Partial superior movement of thyroid cartilage/partial approximation of arytenoids to the epiglottic petiole Anterior hyolaryngeal elevation 1-Partial anterior movement Epiglottic Inversion 1-Partial inversion Laryngeal vestibular closure 1-Incomplete, narrow column of air/contrast in laryngeal vestibule Pharyngeal stripping wave 1-Present, diminished Pharyngeal contraction in anterior-posterior view 3-Bilateral bulging Pharyngoesophageal segment opening 1-Partial distension/partial duration, partial obstruction of flow Tongue base retraction 3-Wide column of contrast or air between tongue base and posterior pharyngeal wall Pharyngeal Residue 4-Minimal to no pharyngeal clearance Location Diffuse (>3 areas) Esophageal Impairment Esophageal Impairment 2-Esophageal retention with retrograde flow below the pharynoesophageal segment Penetration/Aspiration Scale Thin liquid 7- Enters airway, below the vocal folds, not ejected [place]-thick liquid 4- Enters airway, contacts the folds and ejected Pudding consistency 1 - Does not enter the airway ASSESSMENT Nader Briggs presents with moderate oropharyngeal dysphagia. The epiglottis did not fully retroflex and reduced tongue base retraction, hyolaryngeal excursion, pharyngeal stripping wave, pharyngeal contraction pressures, and extent and duration of pharyngoesophageal segment opening were notedwhich resulted in diffuse pharyngeal residue across all consistencies. Penetration of thin and nectar thick liquids occurred during the swallow due to incomplete laryngeal vestibule closure and afterthe swallow when residue spilled into the laryngeal vestibule. Inconsistent penetration to the level of the true vocal folds occurred with thin and nectar thick liquids. Patient coughed in response to penetration to the level of the true vocal folds which cleared the majority of the material from the laryngeal vestibule. A left head turn and chin tuck did not improve swallow safety or efficiency,but instead resulted in aspiration. PLAN/RECOMMENDATIONS Recommended Diet: IDDSI Level 6 Soft and Bite-Sized Consistencies or IDDSI Level 4 Pureed Consistencies with IDDSI Level 0 Thin Liquid (small sips with a cough and multiple swallows) since patient does not have any other means of nutrition and does not have a history of recurrent aspiration pneumonia. Recommended Strategies: Perform oral care prior to and after oral intake. Monitor closely for symptoms of aspiration sequelae such as fever, malaise, shortness of breath, and chest congestion. Alternate liquids and solids.(Patient is currently restricted to only consuming 32 ounces of liquids each day. APPEALS REFEREE reached out to casting machine service operator to ensure patient is receiving adequate nutrition while requiring a liquid wash after each bite.) Recommendation for Referral to Additional Providers: Follow-up with referring provider. PATIENT/CAREGIVER EDUCATION PROVIDED The family was provided education regarding the results of this study. They verbalized understanding. The family was provided education regarding the risks versus benefits of an oral diet. APPEALS REFEREE discussed risks of aspiration such as possible development of aspiration pneumonia. APPEALS REFEREE also discussed ways to mitigate the risk, including maintaining good oral hygiene and remaining physically active. . documented in this encounter Plan of Treatment Upcoming Encounters Date Type Department Care Team (Late st Contact Info) Description 11/26/2024 10:00 AM EDT Office Visit [facility] [address] Floor [address] [place] [address] Carolee Gr MD [address] [place] [address] 05/03/2025 8:00 AM EST Appointment [facility] Ultrasound [address] [place] [address] 2025 1:00 PM EST Office Visit [facility] Otolaryngology [address] [place] [address] Yadiel Thornton MD [address] [place] [address] 05/13/2025 8:10 AM EST Office Visit [facility] Urology [address] [place] [address] Cheyenne Mitchell, PERSONAL BANKER, DNP [address] [place] [address] documented as of this encounter Procedures Procedure Name Priority Date/Time Associated Diagnosis Comments FL MODIFIED BARIUM SWALLOW Routine 11/06/2024 4:03 PM EDT Dysphagia, unspecified type documented in this encounter Results * FL Modified Barium Swallow (11/06/2024 4:03 PM EDT) Anatomical Region Laterality Modality Esophagus, stomach and duodenum Digital Radiography Impressions 11/06/2024 4:53 PM EDT Laryngeal penetration of thin barium, and aspiration of thin barium with head turn maneuver. There is limited visualization of the distal thoracic esophagus, there may be narrowing of the distal thoracic esophagus. Please see separate note by Speech therapy team for dietary recommendations. CRITICAL RESULT: No. COMMUNICATION: These findings were discussed via secure chat with YADIEL THORNTON and Socorro Cameron on 11/06/2024 4:52 PM by Bob Nathan MD. By electronically signing this report, I, the attending physician, attest that I have personally reviewed the images/data for the above examination(s) and agree with the final edited report. Drafted by Santos Benavides MD on 11/06/2024 4:31 PM Final report signed by Bob Nathan MD on 11/06/2024 4:53 PM Narrative 11/06/2024 4:53 PM EDT CLINICAL INDICATION: dysphagia TECHNIQUE: Modified barium swallow was performed utilizing video fluoroscopy in conjunction with the Speech Pathology team. The patient ingested barium media of varying consistencies. Fluoroscopy Time: 2.9 minutes. COMPARISON: [facility], 06/01/2024. Chest CT 05/28/2024. FINDINGS: Swallowing: Penetration with thin barium irrespective of the mode of administration. Aspiration of thin barium with left head turn maneuver. No penetration or aspiration with nectar, pudding, cracker. There is significant pharyngeal residue with all of the attempted consistencies. Other: Tunneled right sided central venous catheter is noted. Limited evaluation of the thoracic esophagus shows some esophageal stasis. There is limited visualization of the distal thoracic esophagus, there may be narrowing of the distal thoracic esophagus. Barium does enter the stomach. Procedure Note Bob Nathan MD - 11/06/2024 CLINICAL INDICATION: dysphagia TECHNIQUE: Modified barium swallow was performed utilizing video fluoroscopy inconjunction with the Speech Pathology team. The patient ingested bariummedia of varying consistencies. Fluoroscopy Time: 2.9 minutes. COMPARISON: [facility], 06/01/2024. Chest CT 05/28/2024. FINDINGS: Swallowing: Penetration with thin barium irrespective of the mode ofadministration. Aspiration of thin barium with left head turn maneuver. Nopenetration or aspiration with nectar, pudding, cracker. There issignificant pharyngeal residue with all of the attempted consistencies. Other: Tunneled right sided central venous catheter is noted. Limitedevaluation of the thoracic esophagus shows some esophageal stasis. Thereis limited visualization of the distal thoracic esophagus, there may benarrowing of the distal thoracic esophagus. Barium does enter thestomach. IMPRESSION: Laryngeal penetration of thin barium, and aspiration of thin barium withhead turn maneuver. There is limited visualization of the distal thoracic esophagus, there maybe narrowing of the distal thoracic esophagus. Please see separate note by Speech therapy team for dietaryrecommendations. CRITICAL RESULT: No. COMMUNICATION: These findings were discussed via secure chat with YADIEL THORNTON and Gris on 11/06/2024 4:52 PM by Bob Nathan MD. By electronically signing this report, I, the attending physician, attestthat I have personally reviewed the images/data for the aboveexamination(s) and agree with the final edited report. Drafted by Santos Benavides MD on 11/06/2024 4:31 PM Final report signed by Bob Nathan MD on 11/06/2024 4:53 PM us Yadiel Thornton MD IMG FLUOROSCOPY PROCEDURES Final Result documented in this encounter Visit Diagnoses Diagnosis Dysphagia, oropharyngeal- Primary Dysphagia, oropharyngeal phase Dysphagia, unspecified type documented in this encounter Administered Medications Inactive Administered Medications - up to 3 most recent administrations Medication Order MAR Action Action Date Dose Rate Site barium sulfate (Varibar [place]) 40 % suspension 120 mL 120 mL, Oral, Once in imaging, 1 dose, Starting on Sat11/06/24 at 1600, Until Sat11/06/24 at 1603, Routine, Imaging Protocol Orders Given 11/06/2024 4:03 PM EDT 120 mL barium sulfate (Varibar Pudding) 40 % oral paste 15 mL 15 mL, Oral, Once in imaging, 1 dose, Starting on Sat11/06/24 at 1600, Until Sat11/06/24 at 1603, Routine, Imaging Protocol Orders Given 11/06/2024 4:03 PM EDT 15 mL barium sulfate (Varibar THIN Liquid) 40 % suspension 120 mL 120 mL, Oral, Once in imaging, 1 dose, Starting on Sat11/06/24 at 1600, Until Sat11/06/24 at 1603, Routine, Imaging Protocol Orders Given 11/06/2024 4:03 PM EDT 120 mL documented in this encounter Additional Health Concerns Assessment Noted Time PHQ-9 Depression Total Score: 4 10/31/19 10:22 AM EDT A fall risk assessment has been complete d for the patient 10/30/2024 10:23 AM EDT A Body Mass Index follow-up plan has been documented for the patient 10/30/2024 11:00 AM EDT documented as of this encounter Care Teams Rn Supplemental Relationship Specialty Start Date End Date Oz Ramos MD [address] [place] [address] #1 #1 ELO Damian [address] PCP - General 10/07/20 John Joseph MD [address] [place] [address] Consulting Physician Urology 02/04/23 Cheyenne Mitchell, ELIZABETH, DNP [address] [place] [address] Nurse Practitioner Urology 05/13/24 documented as of this encounter
--- OUTSIDE RECORDS SUMMARY | 2024-11-19 10:30 | XMS_ITS | Encounter Summary ---
Author Organization Healthcare Address [address] [place] [address] Care Team Providers Care Patternmaker Helper Name Role Phone Oz Ramos MD Primary Care Provider [phone] John Joseph MD Unavailable [phone] Cheyenne Mitchell APRN, DNP Unavailable [phone] Reason for Visit * Reason Comments Post-op Encounter Details Date Type Department Care Team (Late st Contact Info) Description 11/19/2024 10:30 AM EDT [facility] Visit [facility] [address] [place] [address] Rudy Andersen MD [address] [place] [address] Social History Tobacco Use Types Packs/Day Years [...] time in the past 12 m [facility], were you homeless or living in a [place] [facility] [place] facility (including now)? No 06/19/2024 CAGE ASSESSMENT Answer [...] drink first t jeff in the morning (EYE-FRAME CHANGER) to steady your nerves or to get rid of a hangover? 0 06/18/2024 CAGE Questionnaire Score 0 025 Utilities Answer Date Recorded In the past 12 months has e electric, gas, oil, or water company [...] Index - - documented in this encounter Plan of Treatment Upcoming Encounters Date Type Department Care Team (Late st Contact Info) Description 11/26/2024 10:00 AM EDT Office Visit [facility] [address] [place] [address] Carolee Gr MD [address] [place] [address] 05/03/2025 8:00 AM EST Appointment [facility] Ultrasound [address] [place] [address] 2025 1:00 PM EST Office Visit [facility] Otolaryngology [address] [place] [address] Rudy Andersen MD [address] [place] [address] 05/13/2025 8:10 AM EST Office Visit [facility] Urology [address] [place] [address] Cheyenne Mitchell, HEEL MOLDER, DNP [address] [place] [address] documented as of this encounter [...] documented as of this encounter Care Teams Patternmaker Helper Relationship Specialty Start Date End Date Oz Ramos MD [address] [place] [address] [address] [place] [address] PCP - General 10/07/20 John Joseph MD [address] [place] [address] Consulting Physician Urology 02/04/23 Cheyenne Mitchell, ELIZABETH, DNP [address] [place] [address] Nurse Practitioner Urology 05/13/24 documented as of this encounter
[2024-11-24] VITALS (19 sets, daily range): BP systolic 196–219; BP diastolic 62–108; PULSE 63–77; RESP 13–22; TEMP 37; O2SAT 93–98; BMI 17.8
--- OUTSIDE RECORDS SUMMARY | 2024-11-24 18:02 | XMS_ITS | Encounter Summary ---
Author Organization [employer] ([place], [place], [place], [place]) Address [address] [place] [address] Care Team Providers Care Drawer In Dobby Loom Name Role Phone Unavailable Primary Care Provider Unavailabl e Encounter Details Date Type Department Care Team (Late st Contact Info) Description 01/06/2019 Transcribed Document [facility] Radiology [address] [place] [address] Urszula Mccullough MD [facility] [place] [address] Social History Tobacco Use Types Packs/Day Years Used Date Smoking Tobacco: Never Assessed Sex and Gender Information Value Date Recorded Sex Assigned at Male 11/21/2021 1:59 PM CDT Legal Sex Male 1:59 PM CDT Gender Identity Male 11/21/2021 1:59 PM CDT Sexual Orientation Not on file documented as of this encounter Miscellaneous Notes * Cerner Conversion Note - Urszula Mccullough MD - 01/06/2019 10:06 PM EDT Patient: NADER TOLENTINO Age: 78 Years Sex: Male : 1940 Primary Care Provider PHY, UNKNOWN History of Present Illness hip pain Vital Signs Oxygen Settings (Last) Oxygen Therapy Mode: Room air (12/17/18 13:10:00) Physical Exam DJD hip Assessment/Plan [place] Unilateral primary osteoarthritis, right hip, Unilateral primary osteoarthritis, right hip Orders: Admit to Inpatient VTE Prophylaxis - Medical No VTE Prophylaxis Orders. Problem List/Past Medical History Ongoing Arthritis At risk for sleep apnea Barretts esophagus Cancer//left side of neck Carotid artery disease Carotid stent occlusion Cataract//extraction Diabetes mellitus type II Disorder of prostate//cancer GERD - Gastro-esophageal reflux disease Hard of hearing Hyperlipidemia Hypertension Kidney disease///stage 3 Renal calculus Right hip pain Right knee pain Thyroid disease TIA (transient ischemic attack) 2013 and 05/2018 Urinary //artifical urinary sphincter Urinary catheter complication////DO NOT CATH///URINARY Historical No qualifying data Procedure/Surgical History DILATION OF L COM CAROTID WITH INTRALUM DEV, OPEN APPROACH (11/28/2018), colonoscopy (06/2016), EGD (2016), EGD (2012), colonoscopy///EGD (2010), varicose veins right leg (04/2010), varicose vein left leg (2009), artifical urinary sphincter (2007), tumorv exc. left side of neck//cancer (1997), cataract removal, GALLBLADDER, kidney stone removal, kidney stones, left carotid stent, left knee/torn meniscus, left shoulder///torn rotator, prostatectomy. Home Medications (13) Active aspirin 81 mg, Oral, Daily atorvastatin 20 mg, Oral, At Bedtime clopidogrel 75 mg oral tablet 75 mg = 1 Tab, Oral, At Bedtime elppa CoQ10 50 mg oral capsule 100 mg = 2 Cap, Oral, Daily glimepiride 2 mg oral tablet 4 mg = 2 Tab, Oral, With Breakfast levothyroxine 88 mcg (0.088 mg) oral tablet 88 mcg = 1 Tab, Oral, Daily lisinopril 5 mg, Oral, BID metoprolol tartrate 25 mg, Oral, BID omeprazole 40 mg oral delayed release capsule 40 mg = 1 Cap, Oral, PC Dinner Triple Strength Red Krill Oil 350 mg, Oral, Daily Vitamin B Complex oral capsule 1 Cap, Oral, Daily Vitamin B12 1000 mcg oral tablet 2,000 mcg = 2 Tab, Oral, Daily Vitamin D3 4,000 Units, Daily Allergies NSAIDs (Kidney disease) Social History Alcohol Alcohol Use History No. Home/Environment Lives with Alone. Home equipment: Glucose monitoring. Substance Abuse Drug Use Hx: No. Use in Last 12 Months: No. Tobacco Never (less than 100 in lifetime) Smoking Status. Never Smokeless Tobacco Status. Additional Documentation Code Status No Code Status Order on Record documented in this encounter Plan of Treatment Not on file documented as of this encounter Visit Diagnoses Not on filedocumented in this encounter
--- OUTSIDE RECORDS SUMMARY | 2024-11-24 18:02 | XMS_ITS | Encounter Summary ---
Author Organization [employer] ([place], [place], [place], [place]) Address [address] [place] [address] Care Team Providers Care Catalytic Converter Operator Name Role Phone Unavailable Primary Care Provider Unavailabl e Encounter Details Date Type Department Care Team (Late st Contact Info) Description 12/03/2018 Transcribed Document [facility] [place] [address] ProviderBrianne MD [address], [place] [id number] Social History Tobacco Use Types Packs/Day Years Used Date Smoking Tobacco: Never Assessed Sex and Gender Information Value Date Recorded Sex Assigned at Male 11/21/2021 1:59 PM CDT Legal Sex Male 1:59 PM CDT Gender Identity Male 11/21/2021 1:59 PM CDT Sexual Orientation Not on file documented as of this encounter Miscellaneous Notes * Cerner Conversion Note - Brianne Kim MD - 12/03/2018 1:52 PM CDT Final Discharge Planning Entered On: 12/03/2018 13:53 EDT Performed On: 12/03/2018 13:52 EDT by NARA HEBERT, RN-Weed Controller Final Discharge Planning Follow Up Appointment Scheduled : No Is Patient High/Moderate Readmission Risk? : Yes High Readmission Risk - Home, no Home Health : Revisit patient/caregiver again after home health, if successful designate choice of home health and notifiy liason Patient/Family Notified of Plan : Yes Patient/Family Notified : patient and daughter Is Patient Ready for Discharge? : Yes Physician Notified Patient is Ready for Discharge? : Yes Discharge To Care Management : Home/Residential/[facility] or Self Care - NARA HEBERT RN-Weed Controller - 12/03/2018 13:53 EDT Discharge Arrangements : Patient Post-Acute Information Patient Name: NADER TOLENTINO [facility]: [id number] Gender: Male : [birth year] Age: 78 Years No Post-Acute Placement(s) Listed No Post-Acute Service(s) Listed No [place] Referral(s) Listed Transportation Needs : Car Discharge Transportation Arrangement Cmt : daughter NARA HEBERT, RN-Weed Controller - 12/03/2018 13:52 EDT Final Narrative Note Final Narrative Note : Pt to discharge to home with his daughter. Pt and daughter both refuse home health at this time and deny any discharge needs. Pt's daughter to transport. NARA HEBERT, RN-Weed Controller - 12/03/2018 13:53 EDT documented in this encounter Plan of Treatment Not on file documented as of this encounter Visit Diagnoses Not on filedocumented in this encounter
--- OUTSIDE RECORDS SUMMARY | 2024-11-24 18:02 | XMS_ITS | Encounter Summary ---
Author Organization [employer] ([place], [place], [place], [place]) Address [address] [place] [address] Care Team Providers Care Tape Folding Machine Operator Name Role Phone Unavailable Primary Care Provider Unavailabl e Encounter Details Date Type Department Care Team (Late st Contact Info) Description 12/03/2018 Transcribed Document [facility] [place] [facility] [place] [address] ProviderBrianne MD [address], [place] [id number] Social History Tobacco Use Types Packs/Day Years Used Date Smoking Tobacco: Never Assessed Sex and Gender Information Value Date Recorded Sex Assigned at Male 11/21/2021 1:59 PM CDT Legal Sex Male 1:59 PM CDT Gender Identity Male 11/21/2021 1:59 PM CDT Sexual Orientation Not on file documented as of this encounter Miscellaneous Notes * Cerner Conversion Note - Brianne Kim MD - 12/03/2018 2:05 PM CDT Nursing Discharge Summary Entered On: 12/03/2018 14:06 EDT Performed On: 12/03/2018 14:05 EDT by Zuleyka Smith RN Discharge Documentation Patient Disposition, General : Discharge Discharge To : Home with ambulatory/outpatient follow-up Mode Of Departure, General Discharge : Wheelchair Accompanied By, Discharge : Care provider IV Discontinued : Yes Personal Belongings With Patient : Yes Discharge Instructions Reviewed With, Opportunity For Questions Given : Patient, Daughter Patient Education Completed : Yes Teaching Method : Explanation, Printed materials Teaching Evaluation : Verbalizes understanding Zuleyka Smith RN - 12/03/2018 14:05 EDT documented in this encounter Plan of Treatment Not on file documented as of this encounter Visit Diagnoses Not on filedocumented in this encounter
--- OUTSIDE RECORDS SUMMARY | 2024-11-24 18:02 | XMS_ITS | Encounter Summary ---
Author Organization [employer] ([place], [place], [place], [place]) Address [address] [place] [address] Care Team Providers Care Tire Center Supervisor Name Role Phone Unavailable Primary Care Provider Unavailabl e Encounter Details Date Type Department Care Team (Late st Contact Info) Description 12/03/2018 Transcribed Document [facility] [address] [place] [address] Max Estrada MD [address] [place], [place] [id number] Social History Tobacco Use Types Packs/Day Years Used Date Smoking Tobacco: Never Assessed Sex and Gender Information Value Date Recorded Sex Assigned at Male 11/21/2021 1:59 PM CDT Legal Sex Male 1:59 PM CDT Gender Identity Male 11/21/2021 1:59 PM CDT Sexual Orientation Not on file documented as of this encounter Miscellaneous Notes * Cerner Conversion Note - Max Esrtada MD - 12/03/2018 1:49 PM EDT DATE OF ADMISSION: 11/30/2018 DATE OF DISCHARGE: december 03, 2018 CONSULTS: Include: 1. Dr. Abundio Doss, Neurology. 2. Dr. Max Fofana, Cardiology. 3. Zoila Gomez, Vascular Surgery. 4. Dr. Husam Pop, Vascular Surgery. REGULAR NEUROLOGIST: Dr. Karolina Moscoso. PRIMARY CARE DOCTOR: Dr. Jared Ramos. ADMISSION DIAGNOSES: 1. Acute metabolic encephalopathy. 2. Left carotid artery stenosis status post recent stent. 3. Hypertension and labile hypotension. 4. Acute on chronic stage 3 kidney disease. 5. Diabetes mellitus. 6. Hypothyroidism, on Synthroid. 7. FULL CODE. DISCHARGE DIAGNOSES: 1. Likely acute metabolic encephalopathy secondary to hypoperfusion from hypotension, reaction to multiple blood pressure medications as well as acute renal failure on chronic kidney disease. 2. Left carotid artery stenosis status post recent stent. 3. Hypertension and labile hypotension. 4. Acute on chronic stage 3 kidney disease. 5. Diabetes mellitus. 6. Hypothyroidism, on Synthroid. 7. FULL CODE. HISTORY OF PRESENT ILLNESS: The patient is a 78-year-old white male with history of neck cancer status post radiation, left carotid artery stenosis status post stent placement on November 28, history of TIAs. After discharge, family noted that he was having issues with blood pressure, very low blood pressure in the 90s. He had confusion associated with low blood pressure. Also, had some numbness in his upper extremity at that time. Denies any focal weakness. Denies difficulty swallowing. In the ER, his blood pressure is actually elevated. CTA of the head and neck were unremarkable, oriented x3. HOSPITAL COURSE: Patient was admitted with acute metabolic encephalopathy on November 30. Recent carotid stent placement for carotid stenosis. Neurology was consulted as well as Vascular Surgery. Apparently, Vascular Surgery had discharged him earlier that same day. Labile hypertension and hypotension. Acute kidney injury. Creatinine 1.71, improved to 1.3 couple of days later. His primary care doctor is Dr. Jared Ramos. He does not have a varnish maker. We went ahead and consulted Dr. Fofana's in [facility]. Dr. Estrada changed his Coreg to q.6 h. at a lower dose to try to minimize big fluctuations and Cardiology then changed the Coreg to metoprolol 25 twice a day. Also, decreased his lisinopril for acute renal failure from 30 once a day to 5 twice a day. Patient's symptoms improved. His blood pressure also leveled off. Dr. Doss, Neurology, saw the patient on December 01 and December 02. He thinks that the symptoms are most likely transient encephalopathy and apraxia that TIA related to low blood pressure. I told the patient not to drive until released by an outpatient neurologist. Agrees with continued antiplatelets and try to avoid hypotension if possible. PHYSICAL EXAMINATION: Performed on December 03 shows: VITAL SIGNS: Temperature 98, heart rate of 57, blood pressure 155/69, 94% on room air. GENERAL: In no acute distress. Alert and oriented x3. Afebrile. CHEST: Clear to auscultation bilaterally. No wheezes, rales, or rhonchi. CARDIOVASCULAR: Regular rate and rhythm. S1, S2. No murmurs, rubs, or gallops. GI: Soft, nontender, nondistended. Positive bowel sounds. EXTREMITIES: No cyanosis, clubbing, or edema. Pulses 2+. DISCHARGE CONDITION: Stable. DISPOSITION: Home with family. ACTIVITY: No strenuous activity. No driving until cleared by outpatient neurologist. DIET: Healthy heart diet. FOLLOWUP INSTRUCTIONS: Follow up with primary care provider in one week. Follow up with outpatient neurologist in two to four weeks. DISCHARGE MEDICATIONS: Include: 1. Omeprazole 40 mg daily. 2. Coenzyme Q 30 mg 2 caps p.o. daily. 3. Aspirin 81 daily. 4. Atorvastatin 20 q.h.s. 5. Vitamin D3, 2000 units p.o. daily. 6. Plavix 75 daily. 7. Vitamin B12, 1000 mcg p.o. daily. 8. Glimepiride 2 mg 2 tablets with breakfast. 9. Synthroid 88 mcg daily. 10. Lisinopril 5 mg b.i.d. 11. Metoprolol tartrate 25 p.o. b.i.d. 12. Vitamin B complex p.o. daily. 13. Neihart-3 1000 mg p.o. daily. 14. MiraLAX 17 g p.o. daily. TIME SPENT: 35 minutes spent on the followup and discharge of this pleasant gentleman, greater than 50% time spent on counseling and coordination. Max Estrada M.D. Dict: 12/03/2018 12:49:28 Trans: 12/03/2018 14:22:58 CC1: Max Estrada M.D. CC2: Karolina Moscoso MD CC3: Dr. Jared Ramos CC4: Ashvin Irby MD CC5: Husam Pop MD CC6: Abundio Doss M.D. documented in this encounter Plan of Treatment Not on file documented as of this encounter Visit Diagnoses Not on filedocumented in this encounter
--- OUTSIDE RECORDS SUMMARY | 2024-11-24 18:02 | XMS_ITS | Continuity of Care Document ---
Author Organization [facility] DAVIS Rodriguez HARRISON Address [address] [place] [address] Care Team Providers Care Security Manager Name Role Phone JOHANNY NORTH Referring Provider [phone] JOHANNY NORTH Primary Care Provider [phone] DALIA BARBER Passenger Solicitor Assessment No assessment recorded. Plan of Treatment Reminders Order Date Submit Date Provider Last Modified By Organization Details Last Modified Time Details Appointments FOLLOW UP [facility] 2025 08:10A M DALIA BARBER PA-C Not available Not available Not available Lab None recorded . Referral None recorded . Procedures None recorded . Surgeries None recorded . Imaging None recorded . Medication Orders None recorded . Patient TargetsNo targets recorded. Patient InstructionsNo instructions recorded. Reason for Referral None Reported. Problems Name Problem SNOMED Code Status Onset Date Resolution Date Notes Provider Name and Address Organization Details Recorded Time Hyperlipi demia 93963259 Active 2015 From Automated Load;Provi mayra: Karolina Moscoso;Stat us: Active Not Available [facility] 6 04:13:14 Squamous cell carcinoma of skin 074601350 Active 2014 From Automated Load;Provi mayra: Rachael Dobbins atus: Active [facility] 9 13:57:55 Impacted cerumen 77732048 Active 2014 From Automated Load;Provi mayra: Rachael Dobbins atus: Active Karen Cope [facility] 9 13:57:55 Sensorine ural hearing loss 01002401 Active 2014 Provider: Ben Dobbins; atus: Active ELO Palacios [facility] 9 13:57:55 Sensorine ural hearing loss of bilateral ears 845872126 Active 2014 From Automated Load;Provi mayra: Ben Dobbins; atus: Active ELO Palacios [facility] 9 13:57:55 Cerebrova scular disease 98168000 Active 2015 From Automated Load;Provi mayra: Karolina Moscoso;Stat us: Active ELO Palacios [facility] 9 13:57:55 Hypertens dirk disorder 01468971 Active 2015 From Automated Load;Provi mayra: Karolina Moscoso;Stat us: Active Not Available [facility] 6 04:13:14 Disorder of nervous system due to type 2 diabetes mellitus 886853714 Active 2015 From Automated Load;Provi mayra: Karolina Moscoso;Stat us: Active ELO Palacios [facility] 9 13:57:55 Problem Notes None recorded. Procedures Surgical History Date Name Laterality Status Provider Name and Address Organization Details Recorded Time 11/24/19 25 DAK - Cryo AK active Massiel [facility] 11/23/2024 08:46:30 11/24/19 25 Blade Biopsy w/ ED&C active Massiel Staley [facility] 11/23/2024 08:57:03 11/24/19 25 Blade Biopsy active Massiel [facility] 11/23/2024 08:51:34 11/24/19 25 Destruction BN Lesions active Massiel Staley [facility] 11/23/2024 08:43:36 09/11/19 25 DAK - Cryo AK completed Diana Mitchell [facility] 09/10/2024 11:24:31 09/11/19 25 Blade Biopsy completed Diana Mitchell [facility] 09/10/2024 11:23:13 07/21/19 25 Cerumen removal - Instruments, Bilateral completed Brittany Vance [facility] 07/21/2024 13:51:54 08/13/19 24 Cerumen removal - Instruments, Bilateral completed Brittany Womackjeffrey [facility] 08/13/2023 09:35:39 07/31/19 23 Cerumen removal - Instruments, Bilateral completed Daria Dawson [facility] 07/30/2022 09:04:39 12/26/19 22 Smell Inventory Test completed Claudette Flores [facility] 12/25/2021 10:52:08 11/01/19 22 Cerumen removal - Instruments, Bilateral completed Claudette Flores [facility] 10/31/2021 12:32:26 07/19/19 21 Tympanogram completed AGUSTÍN PALOMINO AUD [address] [place], [address], [facility] 07/19/2020 08:43:47 07/19/19 21 Audiogram completed AGUSTÍN PALOMINO AUD [address] [place], [address], [facility] 07/19/2020 08:43:45 07/19/19 21 Cerumen removal - Instruments, Bilateral completed Nora Oviedo [facility] 07/19/2020 09:23:47 10/16/19 20 Injection Joint/Bursa, Major completed JULIO RUSHING MD [address] [place], [address], [facility] 10/16/2019 11:40:23 02/19/20 19 Destruction Premalignant Lesion(s) completed Tiana Mcdowell [facility] 02/18/2019 08:35:39 02/19/20 19 Destruction BN Lesions completed Tiana Mcdowell [facility] 02/18/2019 08:35:20 01/08/20 19 Total hip arthroplasty completed Don Fox [facility] 03/03/2019 14:20:33 08/21/19 19 Destruction MN Lesion; trunk, arm, leg completed Willis Deutsch [facility] 08/20/2018 09:02:32 08/21/19 19 Destruction Premalignant Lesion(s) completed Willis Deutsch [facility] 08/20/2018 08:43:32 08/01/19 19 Tympanogram completed DAY MCDOWELL, AUD [address] [place], [address], [facility] 07/31/2018 09:42:26 08/01/19 19 Audiogram completed DAY MCDOWELL, AUD [address] [place], [address], [facility] 07/31/2018 09:42:25 08/01/19 19 [facility] 07/31/2018 10:08:27 08/01/19 19 Tympanometry completed [facility] 07/31/2018 10:08:21 08/01/19 19 Cerumen removal - Instruments, Bilateral completed [facility] 07/31/2018 09:14:28 02/20/20 18 Destruction Premalignant Lesion(s) completed [facility] 02/19/2018 09:05:40 02/20/20 18 Destruction BN Lesions completed [facility] 02/19/2018 09:05:51 08/15/19 18 Destruction MN Lesion; face, ear, eyelid, nose, lip completed [facility] 08/14/2017 10:38:16 08/15/19 18 Destruction Premalignant Lesion(s) completed [facility] 08/14/2017 10:24:05 06/25/19 18 Cerumen removal - Instruments, Bilateral completed [facility] 06/25/2017 10:30:05 12/27/19 17 Destruction Premalignant [facility](s[facility]2016 08:21:05 06/27/19 17 Biopsy Skin [facility] 06/27/2016 09:26:47 06/27/19 17 Destruction Premalignant Lesion(s) [facility] 06/27/2016 09:27:14 Fragmenting of kidney stone completed Sun Mcarthur [facility] 09/19/2016 08:15:44 Tonsillectomy completed Sun Mcarthur [facility] 09/19/2016 08:15:47 Prostatectomy (turp) completed [facility] 09/19/2016 08:16:00 Shoulder Surgery completed [facility] 09/19/2016 08:16:09 Knee Surgery completed [facility] 09/19/2016 08:16:16 Other completed [facility] 09/19/2016 08:16:22 Imaging Results None recorded. Procedure Notes None recorded. Medical Equipment None Reported. Allergies No known drug allergies Medications Name Sig Start Date Stop Date Status Note LastModified by Organization Details LastModified Time Miralax 17 gram oral powder packet Take 1 packet every day by oral route. 07/28 completed Not Available Not Available Not Available carvedilo l 25 mg tablet Take 1 tablet twice a day by oral route. active Not Available Not Available No t Available atorvasta tin 20 mg tablet Take 1 tablet every day by oral route. active Not Available Not Available No t Available lisinopri l 20 mg tablet Take 1 tablet every day by oral route. 07/21 completed Not Available Not Available Not Available clopidogr el 75 mg tablet TAKE 1 TABLET BY MOUTH DAILY 2017 active Not Available Not Available Not Avai lable amlodipin e 5 mg tablet Take 1 tablet every day by oral route. 10/15 completed Not Available Not Available Not Available omeprazol e 40 mg capsule,d elayed release Take 1 capsule every day by oral route. active Not Available Not Available No t Available aspirin 81 mg tablet,de layed release Take 1 tablet every day by oral route. active Not Available Not Available No t Available simvastat in 40 mg tablet Every night at bedtime 12/26 completed Frequenc y: qhs;Medi cation Descript ion: simvasta tin; Dosage:1 ; Route:or al; refills: 0 Not Available Not Available Not Available glimepiri de 2 mg tablet 2 am Every morning 07/21 completed Frequenc y: qam;Medi cation Descript ion: glimepir pa; Dosage:2 ; Route:or al; refills: 0 Not Available Not Available Not Available levothyro xine 88 mcg tablet Daily 07/21 completed Frequenc y: daily;Me dication Descript ion: levothyr oxine; Dosage:1 ; Route:or al; refills: 0 Not Available Not Available Not Available omeprazol e 20 mg capsule,d elayed release Daily 07/14 completed Frequenc y: daily;Me dication Descript ion: omeprazo le; Dosage:2 ; Route:or al; refills: 0 Not Available Not Available Not Available lisinopri l 5 mg tablet TAKE 1 TABLET BY MOUTH EVERY MORNING 07/14 completed 2 qd Not Available Not Available Not Available hydrochlo rothiazid e 25 mg tablet Take 1 tablet every day by oral route. 10/15 completed Not Available Not Available Not Available ipratropi um bromide 42 mcg (0.06 %) nasal spray [place] 2 sprays 3 times a day by intranas al route. 2023 active Not Available Not Available Not Avai lable Percocet 5 mg-325 mg tablet Take 1 tablet every 4 hours by oral route as needed. 07/28 completed Not Available Not Available Not Available Tums 200 mg (as calcium carbonate 500 mg) chewable tablet At Onset 05/31 completed Frequenc y: at onset;Al t Frequenc y: prn;Medi cation Descript ion: calcium carbonat e; Route:or al; refills: 0; Quantity :3 tablet, chewable Not Available Not Available Not Available Tylenol Extra Strength 500 mg tablet 09/19 completed Medicati on Descript ion: acetamin ophen; Route:or al; refills: 0 Not Available Not Available Not Available Coreg 12.5 mg tablet 1/2 tab in AM and 1 tab at HS 10/16 completed Not Available Not Available Not Available Vitamin D3 25 mcg (1,000 unit) capsule Take 2 capsules every day by oral route. active Not Available Not Available No t Available trospium 20 mg tablet Take 1 tablet twice a day by oral route. 07/30 completed Not Available Not Available Not Available gabapenti n 300 mg tablet 09/19 completed Medicati on Descript ion: gabapent in; Route:or al; refills: 0 Not Available Not Available Not Available Vitamin B-12 1000mcg 2 tabs daily active Frequenc y: daily;Me dication Descript ion: cyanocob alamin; Dosage:1 ; Route:or al; refills: 0 Not Available Not Available Not Available valsartan active Not Available Not Elva ilable Not Available ferrous sulfate active Not Available Not Available Not Available iron active Not Available Not Availa ble Not Available amlodipin e 5mg 07/21 completed Not Available Not Available Not Available calcitrio l active Not Available Not Available Not Available Phenergan 05/31 completed Alt Frequenc y: prn;Medi cation Descript ion: prometha zine; refills: 0 Not Available Not Available Not Available coenzyme Q10 active Not Available Not Available Not Available nifedipin e active Not Available Not Available Not Available fluticaso ne propionat e 07/19 completed Not Available Not Available Not Available metoprolo l succinate 25mg BID 07/28 completed Not Available Not Available Not Available Debra-Jose J active Not Available Not Elva ilable Not Available Vitamin B-Complex Daily active Frequenc y: daily;Me dication Descript ion: multivit jalloh; Dosage:1 ; Route:or al; refills: 0 Not Available Not Available Not Available levothyro xine 100 mcg capsule Take 1 capsule every day by oral route. active Not Available Not Available No t Available Vimovo 07/30 completed Not Available Not Available Not Available Suprep Bowel Prep Kit 17.5 gram-3.13 gram-1.6 gram oral solution as directed 09/19 completed Not Available Not Available Not Available krill oil 350mg daily active Not Available Not Available No t Available Myrbetriq 25 mg tablet,ex tended release Take 1 tablet every day by oral route. active Not Available Not Available No t Available calcium acetate active Not Available Not Available Not Available Vitals Date Recorded Body temperature Systolic blood pressure Diastolic blood pressure Provider Name and Address Organization Details Last Updated DateTime 11/04/2024 96.9 [degF] 153 mm[Hg] 67 mm[Hg] Lani Davila [facility] 11/04/2024 14:19:50 Date Recorded Body height Body temperature Systolic blood pressure Diastolic blood pressure Provider Name and Address Organization Details Last Updated DateTime 11/04/2024 180.34 cm 96.5 [degF] 116 mm[Hg] 59 mm[Hg] Amy Dickey [facility] 10:02:58 Social History Question Answer Notes LastModified by Organizat ion Details LastModified Time Tobacco Smoking Status Never Smoker [facility] 05/31/2016 08:25:52 How Much Tobacco Do You Chew? None [email or web address] Information not available 02/18/2019 Live Alone Or With Others? Alone Information not available 09/19/2016 Marital Status [email or web address] Informat ion not available 09/19/2016 What Was The Date Of Your Most Recent Tobacco Screening? 09/10/2024 [email or web address] Information not available 09/10/2024 Sex: Male Functional Status Question Answer Note LastModified by Organizat ion Details LastModified Time What is your level of alcohol consumption? None Information not available 09/19/2016 Do you or have you ever used smokeless tobacco? 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 Never used electronic cigarettes [email or web address] Information not available 02/18/2019 Mental Status None recorded. Family History Relationship Description Onset Age of this Age Resolved Age Notes LastModified by Organization Details LastModified Time Mother History of hypertension [email or web address] Not available 09/2016 08:25:48 Mother Alzheimer's disease [email or web address] Not available 08:15:14 Medical History Condition Response Kidney Stones N Hyperthyroidism Y Heart Arrhythmia N Emphysema N Esophagus/swallowing troubles Y Glaucoma N Depression N Hypothyroidism N Lung Disease N Anesthesia Complications N Anxiety Disorder N Arthritis Y Hearing Loss Y Acid Reflux (GERD) Y Cancer Y Stroke Y Melanoma N Hoarseness N Alcohol Overuse/Alcohol Abuse N High Cholesterol Y Skin Cancer N Snoring problems N Liver Disease N Headaches N Kidney Disease Y Allergies/Hayfever N Heart Problems N Mental handicap N Ear or Hearing Problems Y Gallbladder Disease N Migraines N Thyroid Problems Y Goiter N Anemia N Immune System Disorder N Chest Pain N Stomach trouble N Ulcers N Heart Attack ([place]) N Diabetes Y Rheumatic Fever N Bleeding Disorder N Tuberculosis N AIDS/HIV N Hyperlipidemia N Asthma N Epilepsy/Seizures N Basal Cell Carcinoma Y Sleep Disorder N Hepatitis N Heart Disease Y Hypertension Y Past Encounters Encounter ID Performer Location Encounter Start Date Encounter Closed Date Diagnosis/Indication Diagnosis SNOMED-CT Code Diagnosis ICD10 Code Diagnosis Note [id number] JULIETH MYERS MD [place] [address] [place] [address] 11/04/2024 09:31:21 11/06/2024 11:13:29 Health Concerns Section Related Observation LastModified by Organization Detai ls LastModified Time None Recorded Concern Status LastModified by Organization Details LastModified Time None Recorded Payers Encounter Date Sequence Insurance Name Policy Number Policy Giron Covered Member ID Giron Member ID Guarantor Name 11/04/2024 1 [place] Nader Briggs [id number] Nader Briggs 11/04/2024 2 [employer] (MEDICARE SUPPLEMENT) Nader Briggs [id number] Nader Briggs Notes Date Note Type Note Provider Name and Address Organization Details Recorded Time 11/04/2024 text/html PREOP CHECKLIST1 . Pacemaker or Defibrillator? NO2. Artificial heart valve or joints? YES3. Pt currently on antibiotic? NO - Notes:4. History of bleeding, infection or complications with other surgeries?NO5. Med history, medications and allergies reviewed? YES6. Has pt taken Immunosuppressive meds (imuran, cyclosporine,mycopheno late, chemo etc.?, or steroids in last 2 weeks? NO7. Prearranged Closure? NO - Notes:8. Have a ride home? YES - Notes: Not Available [facility] 11/05/2024 15:44:46
--- OUTSIDE RECORDS SUMMARY | 2024-11-24 18:02 | XMS_ITS | Encounter Summary ---
Author Organization [employer] ([place], [place], [place], [place]) Address [address] [place] [address] Care Team Providers Care Pocket Secretary Assembler Name Role Phone Unavailable Primary Care Provider Unavailabl e Encounter Details Date Type Department Care Team (Late st Contact Info) Description 12/03/2018 Transcribed Document [facility] [place] Family Medicine [address] [place] [address] ProviderBrianne MD [address], [place] [id number] Social History Tobacco Use Types Packs/Day Years Used Date Smoking Tobacco: Never Assessed Sex and Gender Information Value Date Recorded Sex Assigned at Male 11/21/2021 1:59 PM CDT Legal Sex Male 1:59 PM CDT Gender Identity Male 11/21/2021 1:59 PM CDT Sexual Orientation Not on file documented as of this encounter Miscellaneous Notes * Cerner Conversion Note - Brianne ProviderMD - 12/03/2018 8:33 AM CDT NIH Stroke Scale *Q Entered On: 12/03/2018 8:41 EDT Performed On: 12/03/2018 8:33 EDT by Zuleyka Smith RN NIH Stroke Scale *Q NIH Level of Consciousness (1A) : Alert NIH LOC Questions (1B) : Answers both questions correctly NIH LOC Commands (1C) : Performs both tasks correctly NIH Best Gaze (2) : Normal NIH Visual (3) : No visual loss NIH Facial Palsy (4) : Normal symmetrical movements NIH Motor Arm, Left (5A) : No drift NIH Motor Arm, Right (5B) : No drift NIH Motor Leg, Left (6A) : No drift NIH Motor Leg, Right (6B) : No drift NIH Limb Ataxia (7) : Absent NIH Sensory (8) : Normal NIH Best Language (9) : No aphasia NIH Dysarthria (10) : Normal Extinction and Inattention (11) : No abnormality NIH Scale Score : 0 Zuleyka Smith RN - 12/03/2018 8:33 EDT Electronically signed by Victor Manuel Alcala Conversion Business Operations Specialist Cerner at 09/13/2022 4:28 PM CDT documented in this encounter Plan of Treatment Not on file documented as of this encounter Visit Diagnoses Not on filedocumented in this encounter
--- OUTSIDE RECORDS SUMMARY | 2024-11-24 18:02 | XMS_ITS | Encounter Summary ---
Author Organization [employer] ([place], [place], [place], [place]) Address [address] [place] [address] Care Team Providers Care Mirror Inspector Name Role Phone Unavailable Primary Care Provider Unavailabl e Encounter Details Date Type Department Care Team (Late st Contact Info) Description 12/03/2018 Transcribed Document [facility] [place] [facility] [place] [address] ProviderBrianne MD [address] [place] [id number] Social History Tobacco Use Types Packs/Day Years [...] Kim MD - 12/03/2018 1:52 PM CDT On Going Discharge Planning Entered On: 12/03/2018 13:52 EDT Performed On: 12/03/2018 13:52 EDT by NARA HEBERT, RN-Rodent Control WorkerDoor Cutter Progress Note Discharge Arrangements : Patient Post-Acute Information Patient Name: NADER TOLENTINO Gender: Male : 44 Age: 78 Years No Post-Acute Placement(s) Listed No Post-Acute Service(s) Listed No [place] Referral(s) Listed Barriers to Discharge Identified : None identified Barriers to Discharge Unresolved : All resolved Designation of Choice Signed : No Patient Offered Choice/Affiliations Explained : No Were Referrals Sent to Post Acute Providers : No Does the Patient have a Floor to SNF Benefit? : Yes Is the Patient Meeting Medical Necessity : No Did you Document Avoidable Days? : No Physician Agreeable to Move Forward with D/C Plan? : Yes Did you Attend Multidisciplinary Rounds? : No NARA HEBERT, RN-Rodent Control Worker - 12/03/2018 13:52 EDT Electronically signed by Cari [facility] Conversion Pit Laborer Cerner at 09/13/2022 4:29 PM CDT documented in this encounter Plan of Treatment Not on file documented as of this encounter Visit Diagnoses Not on filedocumented in this encounter
--- OUTSIDE RECORDS SUMMARY | 2024-11-24 18:02 | XMS_ITS | Encounter Summary ---
Author Organization [employer] ([place], [place], [place], [place]) Address [address] [place] [address] Care Team Providers Care Phone Specialist Name Role Phone Unavailable Primary Care Provider Unavailabl e Encounter Details Date Type Department Care Team (Late st Contact Info) Description 12/03/2018 Transcribed Document [facility] [place] [facility] [place] [address] ProviderBrianne MD [address] [place], [place] [phone] Social History Tobacco Use Types Packs/Day Years Used Date Smoking Tobacco: Never Assessed Sex and Gender Information Value Date Recorded Sex Assigned at Male 11/21/2021 1:59 PM CDT Legal Sex Male 1:59 PM CDT Gender Identity Male 11/21/2021 1:59 PM CDT Sexual Orientation Not on file documented as of this encounter Miscellaneous Notes * Cerner Conversion Note - Brianne Kim MD - 12/03/2018 2:23 PM CDT Patient Education Materials Follows: Hypertension Hypertension, commonly called high blood pressure, is when the force of blood pumping through the arteries is too strong. The arteries are the blood vessels that carry blood from the heart throughout the body. Hypertension forces the heart to work harder to pump blood and may cause arteries to become narrow or stiff. Having untreated or uncontrolled hypertension can cause heart attacks, strokes, kidney disease, and other problems. A blood pressure reading consists of a higher number over a lower number. Ideally, your blood pressure should be below 120/80. The first ( top ) number is called the systolic pressure. It is a measure of the pressure in your arteries as your heart beats. The second ( bottom ) number is called the diastolic pressure. It is a measure of the pressure in your arteries as the heart relaxes. What are the causes? The cause of this condition is not known. What increases the risk? Some risk factors for high blood pressure are under your control. Others are not. Factors you can change ??? Smoking. ??? Having type 2 diabetes mellitus, high cholesterol, or both. ??? Not getting enough exercise or physical activity. ??? Being overweight. ??? Having too much fat, sugar, calories, or salt (sodium) in your diet. ??? Drinking too much alcohol. Factors that are difficult or impossible to change ??? Having chronic kidney disease. ??? Having a family history of high blood pressure. ??? Age. Risk increases with age. ??? Race. You may be at higher risk if you are -N[place]alese. ??? Gender. Men are at higher risk than women before age 45. After age 65, women are at higher risk than men. ??? Having obstructive sleep apnea. ??? Stress. What are the signs or symptoms? Extremely high blood pressure (hypertensive crisis) may cause: ??? Headache. ??? Anxiety. ??? Shortness of breath. ??? Nosebleed. ??? Nausea and vomiting. ??? Severe chest pain. ??? Jerky movements you cannot control (seizures). How is this diagnosed? This condition is diagnosed by measuring your blood pressure while you are seated, with your arm resting on a surface. The cuff of the blood pressure monitor will be placed directly against the skin of your upper arm at the level of your heart. It should be measured at least twice using the same arm. Certain conditions can cause a difference in blood pressure between your right and left arms. Certain factors can cause blood pressure readings to be lower or higher than normal (elevated) for a short period of time: ??? When your blood pressure is higher when you are in a health care provider's office than when you are at home, this is called white coat hypertension. Most people with this condition do not need medicines. ??? When your blood pressure is higher at home than when you are in a health care provider's office, this is called masked hypertension. Most people with this condition may need medicines to control blood pressure. If you have a high blood pressure reading during one visit or you have normal blood pressure with other risk factors: ??? You may be asked to return on a different day to have your blood pressure checked again. ??? You may be asked to monitor your blood pressure at home for 1 week or longer. If you are diagnosed with hypertension, you may have other blood or imaging tests to help your health care provider understand your overall risk for other conditions. How is this treated? This condition is treated by making healthy lifestyle changes, such as eating healthy foods, exercising more, and reducing your alcohol intake. Your health care provider may prescribe medicine if lifestyle changes are not enough to get your blood pressure under control, and if: ??? Your systolic blood pressure is above 130. ??? Your diastolic blood pressure is above 80. Your personal target blood pressure may vary depending on your medical conditions, your age, and other factors. Follow these instructions at home: Eating and drinking ??? Eat a diet that is high in fiber and potassium, and low in sodium, added sugar, and fat. An example eating plan is called the DASH (Dietary Approaches to Stop Hypertension) diet. To eat this way: ? Eat plenty of fresh fruits and vegetables. Try to fill half of your plate at each meal with fruits and vegetables. ? Eat whole grains, such as whole wheat pasta, brown rice, or whole grain bread. Fill about one quarter of your plate with whole grains. ? Eat or drink low-fat dairy products, such as skim milk or low-fat yogurt. ? Avoid fatty cuts of meat, processed or cured meats, and poultry with skin. Fill about one quarter of your plate with lean proteins, such as fish, chicken without skin, beans, eggs, and tofu. ? Avoid premade and processed foods. These tend to be higher in sodium, added sugar, and fat. ??? Reduce your daily sodium intake. Most people with hypertension should eat less than 1,500 mg of sodium a day. ??? Limit alcohol intake to no more than 1 drink a day for non women and 2 drinks a day for men. One drink equals 12 oz of beer, 5 oz of wine, or 1? oz of hard liquor. Lifestyle ??? Work with your health care provider to maintain a healthy body weight or to lose weight. Ask what an ideal weight is for you. ??? Get at least 30 minutes of exercise that causes your heart to beat faster (aerobic exercise) most days of the week. Activities may include walking, swimming, or biking. ??? Include exercise to strengthen your muscles (resistance exercise), such as pilates or lifting weights, as part of your weekly exercise routine. Try to do these types of exercises for 30 minutes at least 3 days a week. ??? Do not use any products that contain nicotine or tobacco, such as cigarettes and e-cigarettes. If you need help quitting, ask your health care provider. ??? Monitor your blood pressure at home as told by your health care provider. ??? Keep all follow-up visits as told by your health care provider. This is important. Medicines ??? Take vkdo-fms-wqygptj and prescription medicines only as told by your health care provider. Follow directions carefully. Blood pressure medicines must be taken as prescribed. ??? Do not skip doses of blood pressure medicine. Doing this puts you at risk for problems and can make the medicine less effective. ??? Ask your health care provider about side effects or reactions to medicines that you should watch for. Contact a health care provider if: ??? You think you are having a reaction to a medicine you are taking. ??? You have headaches that keep coming back (recurring). ??? You feel dizzy. ??? You have swelling in your ankles. ??? You have trouble with your vision. Get help right away if: ??? You develop a severe headache or confusion. ??? You have unusual weakness or numbness. ??? You feel faint. ??? You have severe pain in your chest or abdomen. ??? You vomit repeatedly. ??? You have trouble breathing. Summary ??? Hypertension is when the force of blood pumping through your arteries is too strong. If this condition is not controlled, it may put you at risk for serious complications. ??? Your personal target blood pressure may vary depending on your medical conditions, your age, and other factors. For most people, a normal blood pressure is less than 120/80. ??? Hypertension is treated with lifestyle changes, medicines, or a combination of both. Lifestyle changes include weight loss, eating a healthy, low-sodium diet, exercising more, and limiting alcohol. This information is not intended to replace advice given to you by your health care provider. Make sure you discuss any questions you have with your health care provider. Document Released: 05/13/2006 Document Revised: 04/10/2017 Document Reviewed: 04/10/2017 [id number] Interactive Patient Education ? 2019 [id number] Mental and Behavioral Health Confusion Confusion is the inability to think with your usual speed or clarity. Confusion may come on quickly or slowly over time. How quickly the confusion comes on depends on the cause. Confusion can be due to any number of causes. What are the causes? Concussion, head injury, or head trauma. ??? Seizures. ??? Stroke. ??? Fever. ??? Brain tumor. ??? Age related decreased brain function (dementia). ??? Heightened emotional states like rage or terror. ??? Mental illness in which the person loses the ability to determine what is real and what is not (hallucinations). ??? Infections such as a urinary tract infection (UTI). ??? Toxic effects from alcohol, drugs, or prescription medicines. ??? Dehydration and an imbalance of salts in the body (electrolytes). ??? Lack of sleep. ??? Low blood sugar (diabetes). ??? Low levels of oxygen from conditions such as chronic lung disorders. ??? Drug interactions or other medicine side effects. ??? Nutritional deficiencies, especially niacin, thiamine, vitamin C, or vitamin B. ??? Sudden drop in body temperature (hypothermia). ??? Change in routine, such as when traveling or hospitalized. What are the signs or symptoms? People often describe their thinking as cloudy or unclear when they are confused. Confusion can also include feeling disoriented. That means you are unaware of where or who you are. You may also not know what the date or time is. If confused, you may also have difficulty paying attention, remembering, and making decisions. Some people also act aggressively when they are confused. How is this diagnosed? The medical evaluation of confusion may include: ??? Blood and urine tests. ??? X-rays. ??? Brain and nervous system tests. ??? Analyzing your brain waves (electroencephalogram or EEG). ??? Magnetic resonance imaging (MRI) of your head. ??? Computed tomography (CT) scan of your head. ??? Mental status tests in which your health care provider may ask many questions. Some of these questions may seem silly or strange, but they are a very important test to help diagnose and treat confusion. How is this treated? An admission to the hospital may not be needed, but a person with confusion should not be left alone. Stay with a family member or friend until the confusion clears. Avoid alcohol, pain relievers, or sedative drugs until you have fully recovered. Do not drive until directed by your health care provider. Follow these instructions at home: What family and friends can do: ??? To find out if someone is confused, ask the person to state his or her name, age, and the date. If the person is unsure or answers incorrectly, he or she is confused. ??? Always introduce yourself, no matter how well the person knows you. ??? Often remind the person of his or her location. ??? Place a calendar and clock near the confused person. ??? Help the person with his or her medicines. You may want to use a pill box, an alarm as a reminder, or give the person each dose as prescribed. ??? Talk about current events and plans for the day. ??? Try to keep the environment calm, quiet, and peaceful. ??? Make sure the person keeps follow-up visits with his or her health care provider. How is this prevented? Ways to prevent confusion: ??? Avoid alcohol. ??? Eat a balanced diet. ??? Get enough sleep. ??? Take medicine only as directed by your health care provider. ??? Do not become isolated. Spend time with other people and make plans for your days. ??? Keep careful watch on your blood sugar levels if you are diabetic. Get help right away if: ??? You develop severe headaches, repeated vomiting, seizures, blackouts, or slurred speech. ??? There is increasing confusion, weakness, numbness, restlessness, or personality changes. ??? You develop a loss of balance, have marked dizziness, feel uncoordinated, or fall. ??? You have delusions, hallucinations, or develop severe anxiety. ??? Your family members think you need to be rechecked. This information is not intended to replace advice given to you by your health care provider. Make sure you discuss any questions you have with your health care provider. Document Released: 06/20/2005 Document Revised: 11/30/2016 Document Reviewed: 06/18/2014 [employer] Interactive Patient Education ? 2019 [employer] Neurology Stroke Prevention Some medical conditions and behaviors are associated with a higher chance of having a stroke. You can help prevent a stroke by making nutrition, lifestyle, and other changes, including managing any medical conditions you may have. What nutrition changes can be made? Eat healthy foods. You can do this by: ? Choosing foods high in fiber, such as fresh fruits and vegetables and whole grains. ? Eating at least 5 or more servings of fruits and vegetables a day. Try to fill half of your plate at each meal with fruits and vegetables. ? Choosing lean protein foods, such as lean cuts of meat, poultry without skin, fish, tofu, beans, and nuts. ? Eating low-fat dairy products. ? Avoiding foods that are high in salt (sodium). This can help lower blood pressure. ? Avoiding foods that have saturated fat, trans fat, and cholesterol. This can help prevent high cholesterol. ? Avoiding processed and premade foods. ??? Follow your health care provider's specific guidelines for losing weight, controlling high blood pressure (hypertension), lowering high cholesterol, and managing diabetes. These may include: ? Reducing your daily calorie intake. ? Limiting your daily sodium intake to 1,500 milligrams (mg). ? Using only healthy fats for cooking, such as olive oil, canola oil, or sunflower oil. ? Counting your daily carbohydrate intake. What lifestyle changes can be made? Maintain a healthy weight. Talk to your health care provider about your ideal weight. ??? Get at least 30 minutes of moderate physical activity at least 5 days a week. Moderate activity includes brisk walking, biking, and swimming. ??? Do not use any products that contain nicotine or tobacco, such as cigarettes and e-cigarettes. If you need help quitting, ask your health care provider. It may also be helpful to avoid exposure to secondhand smoke. ??? Limit alcohol intake to no more than 1 drink a day for non women and 2 drinks a day for men. One drink equals 12 oz of beer, 5 oz of wine, or 1? oz of hard liquor. ??? Stop any illegal drug use. ??? Avoid taking control pills. Talk to your health care provider about the risks of taking control pills if: ? You are over 35 years old. ? You smoke. ? You get migraines. ? You have ever had a blood clot. What other changes can be made? Manage your cholesterol levels. ? Eating a healthy diet is important for preventing high cholesterol. If cholesterol cannot be managed through diet alone, you may also need to take medicines. ? Take any prescribed medicines to control your cholesterol as told by your health care provider. ??? Manage your diabetes. ? Eating a healthy diet and exercising regularly are important parts of managing your blood sugar. If your blood sugar cannot be managed through diet and exercise, you may need to take medicines. ? Take any prescribed medicines to control your diabetes as told by your health care provider. ??? Control your hypertension. ? To reduce your risk of stroke, try to keep your blood pressure below 130/80. ? Eating a healthy diet and exercising regularly are an important part of controlling your blood pressure. If your blood pressure cannot be managed through diet and exercise, you may need to take medicines. ? Take any prescribed medicines to control hypertension as told by your health care provider. ? Ask your health care provider if you should monitor your blood pressure at home. ? Have your blood pressure checked every year, even if your blood pressure is normal. Blood pressure increases with age and some medical conditions. ??? Get evaluated for sleep disorders (sleep apnea). Talk to your health care provider about getting a sleep evaluation if you snore a lot or have excessive sleepiness. ??? Take mcvj-kxg-ofypquh and prescription medicines only as told by your health care provider. Aspirin or blood thinners (antiplatelets or anticoagulants) may be recommended to reduce your risk of forming blood clots that can lead to stroke. ??? Make sure that any other medical conditions you have, such as atrial fibrillation or atherosclerosis, are managed. What are the warning signs of a stroke? The warning signs of a stroke can be easily remembered as BEFAST. ??? B is for balance. Signs include: ? Dizziness. ? Loss of balance or coordination. ? Sudden trouble walking. ??? E is for eyes. Signs include: ? A sudden change in vision. ? Trouble seeing. ??? F is for face. Signs include: ? Sudden weakness or numbness of the face. ? The face or eyelid drooping to one side. ??? A is for arms. Signs include: ? Sudden weakness or numbness of the arm, usually on one side of the body. ??? S is for speech. Signs include: ? Trouble speaking (aphasia). ? Trouble understanding. ??? T is for time. ? These symptoms may represent a serious problem that is an emergency. Do not wait to see if the symptoms will go away. Get medical help right away. Call your local emergency services (911 in the [place] Do not drive yourself to the hospital. ??? Other signs of stroke may include: ? A sudden, severe headache with no known cause. ? Nausea or vomiting. ? Seizure. Where to find more information For more information, visit: ??? [place] Stroke Association: www.strokeassociation.org ??? National Stroke Association: www.stroke.org Summary ??? You can prevent a stroke by eating healthy, exercising, not smoking, limiting alcohol intake, and managing any medical conditions you may have. ??? Do not use any products that contain nicotine or tobacco, such as cigarettes and e-cigarettes. If you need help quitting, ask your health care provider. It may also be helpful to avoid exposure to secondhand smoke. ??? Remember BEFAST for warning signs of stroke. Get help right away if you or a loved one has any of these signs. This information is not intended to replace advice given to you by your health care provider. Make sure you discuss any questions you have with your health care provider. Document Released: 06/20/2005 Document Revised: 06/18/2017 Document Reviewed: 06/18/2017 [employer] Interactive Patient Education ? 2019 [id number] Electronically signed by Victor Manuel Alcala Conversion Media Production Manager Alpesh at 09/13/2022 4:32 PM CDT documented in this encounter Plan of Treatment Not on file documented as of this encounter Visit Diagnoses Not on filedocumented in this encounter
--- OUTSIDE RECORDS SUMMARY | 2024-11-24 18:02 | XMS_ITS | Encounter Summary ---
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 Role Phone Unavailable Primary Care Provider Unavailabl e Encounter Details Date Type Department Care Team (Late st Contact Info) Description 12/02/2018 Transcribed Document [facility] [address] [place] [address] Max Feliz MD [address] [place], [place] [id number] Social History Tobacco Use Types Packs/Day Years Used Date Smoking Tobacco: Never Assessed Sex and Gender Information Value Date Recorded Sex Assigned at Male 11/21/2021 1:59 PM CDT Legal Sex Male 1:59 PM CDT Gender Identity Male 11/21/2021 1:59 PM CDT Sexual Orientation Not on file documented as of this encounter Miscellaneous Notes * Cerner Conversion Note - Max Feliz MD - 12/02/2018 8:52 AM EDT Patient: NADER TOLENTINO Age: 78 years Sex: Male : 1940 Associated Diagnoses: None Author: MAX FELIZ MD Subjective Chief complaint. december 01. no fever or chills. no chest pain or palpitaions. daughter at bedside states dc yesterday by vascular surtgery, she had new bp cuff and sbp 90 and he was acting unusual, Saturday, December 02, 2018. No fevers or chills. No nausea vomiting. Symptoms seem to be improving. Her diarrhea constipation no dysuria hematuria. Review of Systems Constitutional: No fever, No chills. Respiratory: No shortness of breath, No cough. Gastrointestinal: No nausea, No vomiting. Genitourinary: No dysuria. Neurologic: Alert and oriented X4, No confusion. Psychiatric: No anxiety, No depression. Health Status Allergies: Allergic Reactions (Selected) Severity Not Documented NSAIDs- Kidney disease., Allergies (1) Active Reaction NSAIDs Kidney disease Problem list: Medical Arthritis / SNOMED CT 9492159 / Confirmed At risk for sleep apnea / IMO 56721701 / Confirmed Barretts esophagus / SNOMED CT 044960389 / Confirmed Carotid artery disease / SNOMED CT 9054743668 / Confirmed Cataract//extraction / SNOMED CT 587128199 / Confirmed Urinary catheter complication////DO NOT CATH///URINARY / SNOMED CT 5190335851 / Confirmed ARTIFICAL SPHINCTER Diabetes mellitus type II / SNOMED CT 09171954 / Confirmed Disorder of prostate//cancer / SNOMED CT 28027074 / Confirmed Urinary //artifical urinary sphincter / SNOMED CT 503470110 / Confirmed GERD - Gastro-esophageal reflux disease / SNOMED CT 8762616006 / Confirmed Hard of hearing / SNOMED CT 658768080 / Confirmed Right hip pain / SNOMED CT 57847481 / Confirmed Hyperlipidemia / SNOMED CT 01459945 / Confirmed Hypertension / SNOMED CT 52788199 / Confirmed Kidney disease///stage 3 / SNOMED CT 590211707 / Confirmed Right knee pain / SNOMED CT 97412791 / Confirmed Cancer//left side of neck / SNOMED CT 7136955229 / Confirmed Renal calculus / SNOMED CT 483382526 / Confirmed Thyroid disease / SNOMED CT 712711031 / Confirmed TIA (transient ischemic attack) 2013 and 05/2018 / SNOMED CT 263862368 / Confirmed, Active Problems (21) Arthritis At risk for sleep apnea Barretts [...] urinary sphincter Urinary catheter complication////DO NOT CATH///URINARY Current medications: (Selected) Inpatient Medications Ordered DuoNeb 0.5 mg-2.5 mg/3 mL inhalation solution: 3 mL, Nebulized Inhalation, RT_Q6H, PRN: Shortness of Breath Fish Oil: 1,000 mg, Oral, Daily Lipitor: 20 mg, Oral, At Bedtime Milk of Magnesia 8% oral suspension: 30 mL, Oral, Daily, PRN: Constipation MiraLax: 17 Gram, Oral, Daily, PRN: Constipation Nephrocaps: 1 Tab, Oral, Daily Sodium Chloride 0.9% intravenous solution 1,000 mL: 100 mL/Hr, IntraVENous Tylenol: 650 mg, Oral, Q4H, PRN: Pain (Mild 1-3) Vitamin B12: 1,000 mcg, Oral, Daily Vitamin D3: 2,000 Units, Oral, Daily Zofran: 4 mg, IV Push, Q4H, PRN: Nausea aspirin: 81 mg, Oral, Daily clopidogrel: 75 mg, Oral, At Bedtime glimepiride: 4 mg, Oral, With Breakfast heparin: 5,000 Units, SubCutaneous, Q8H hydrALAZINE: 10 mg, IV Push, Q6H, PRN: Other (See Comment) insulin lispro sliding scale: Scale A:, SubCutaneous, AC and at Bedtime levothyroxine: 88 mcg, Oral, Daily lisinopril: 5 mg, Oral, BID metoprolol tartrate: 25 mg, Oral, BID pantoprazole: 40 mg, Oral, Daily Documented Medications Documented Triple Strength Red Krill Oil 1000 mg oral capsule: 1 Cap, Oral, Daily, 0 Refill(s) Vitamin B Complex oral capsule: 1 Cap, Oral, Daily, 0 Refill(s) Vitamin B12 1000 mcg oral tablet: 1 Tab, Oral, Daily, 90 Tab, 0 Refill(s) Vitamin D3 2000 units oral tablet: 1 Tab, Oral, Daily, 0 Refill(s) aspirin 81 mg oral tablet: 1 Tab, Oral, At Bedtime, 30 Tab, 0 Refill(s) carvedilol 25 mg oral tablet: 0.5 Tab, Oral, BID, 60 Tab, 0 Refill(s) clonidine 0.1 mg oral tablet: 1 Tab, Oral, BID, 0 Refill(s) clopidogrel 75 mg oral tablet: 1 Tab, Oral, At Bedtime, 0 Refill(s) elppa CoQ10 50 mg oral capsule: 2 Cap, Oral, Daily, 0 Refill(s) glimepiride 2 mg oral tablet: 2 Tab, Oral, With Breakfast, 0 Refill(s) levothyroxine 88 mcg (0.088 mg) oral tablet: 1 Tab, Oral, Daily, 60 Tab, 0 Refill(s) lisinopril 20 mg oral tablet: 1 Tab, Oral, Daily, 0 Refill(s) omeprazole 40 mg oral delayed release capsule: 1 Cap, Oral, PC Dinner, 0 Refill(s) simvastatin 40 mg oral tablet: 1 Tab, Oral, At Bedtime, 30 Tab, 0 Refill(s), Home Medications (14) Active aspirin 81 mg oral tablet 81 mg = 1 Tab, Oral, At Bedtime carvedilol 25 mg oral tablet 12.5 mg = 0.5 Tab, Oral, BID clonidine 0.1 mg oral tablet 0.1 mg = 1 Tab, Oral, BID clopidogrel 75 mg oral tablet 75 mg = 1 Tab, Oral, At Bedtime elppa CoQ10 50 mg oral capsule 100 mg = 2 Cap, Oral, Daily glimepiride 2 mg oral tablet 4 mg = 2 Tab, Oral, With Breakfast levothyroxine 88 mcg (0.088 mg) oral tablet 88 mcg = 1 Tab, Oral, Daily lisinopril 20 mg oral tablet 20 mg = 1 Tab, Oral, Daily omeprazole 40 mg oral delayed release capsule 40 mg = 1 Cap, Oral, PC Dinner simvastatin 40 mg oral tablet 40 mg = 1 Tab, Oral, At Bedtime Triple Strength Red Krill Oil 1000 mg oral capsule 1,000 mg = 1 Cap, Oral, Daily Vitamin B Complex oral capsule 1 Cap, Oral, Daily Vitamin B12 1000 mcg oral tablet 1,000 mcg = 1 Tab, Oral, Daily Vitamin D3 2000 units oral tablet 2,000 Int Units = 1 Tab, Oral, Daily , Medications (21) Active Scheduled: (14) aspirin EC 81 mg tab 81 mg 1 Tab, Oral, Daily atorvastatin 20 mg tab 20 mg 1 Tab, Oral, At Bedtime cholecalciferol 1,000 unit tab 2,000 Units 2 Tab, Oral, Daily clopidogrel 75 mg tab 75 mg 1 Tab, Oral, At Bedtime cyanocobalamin 1,000 mcg tab 1,000 mcg 1 Tab, Oral, Daily glimepiride 4 mg tab 4 mg 1 Tab, Oral, With Breakfast heparin 5,000 units/1 mL inj 5,000 Units 1 mL, SubCutaneous, Q8H insulin lispro 1 unit/0.01 mL inj Scale A:, SubCutaneous, AC and at Bedtime levothyroxine 88 mcg (0.88 mg) tab 88 mcg 1 Tab, Oral, Daily lisinopril 5 mg tab 5 mg 1 Tab, Oral, BID metoprolol tartrate 25 mg tab 25 mg 1 Tab, Oral, BID multivitamin Vitamin B complex tab 1 Tab, Oral, Daily omega-3 fish oil 1,000 mg cap 1,000 mg 1 Cap, Oral, Daily pantoprazole EC 40 mg tab 40 mg 1 Tab, Oral, Daily Continuous: (1) NaCl 0.9% 1,000 mL 1,000 mL, IntraVENous, 100 mL/Hr PRN: (6) acetaminophen 325 mg tab 650 mg 2 Tab, Oral, Q4H albuterol-ipratropium inh 3 mL 3 mL, Nebulized Inhalation, RT_Q6H hydrALAZINE 20 mg/1 mL inj 10 mg 0.5 mL, IV Push, Q6H magnesium hydroxide 8% liq 30 mL 30 mL, Oral, Daily ondansetron 4 mg/2 mL inj 4 mg 2 mL, IV Push, Q4H polyethylene glycol 3350 pwd 17 g pkt 17 Gram 1 Packet, Oral, Daily Objective VS/Measurements Vitals Signs (last 24 hrs) Last Charted Minimum Maximum Temp 98.1 (DEC 02 11:00) 98 (DEC 01 18:30) 98.3 (DEC 01 15:15) Apical HR L 59 (DEC 02 08:11) L 59 (DEC 02 08:11) L 59 (DEC 02 08:11) Mon HR 52 (DEC 02 11:00) 52 (DEC 02 11:00) 64 (DEC 01 15:15) SBP H 149 (DEC 02 11:00) 93 (DEC 01 18:00) H 178 (DEC 01 16:00) DBP 63 (DEC 02 11:00) L 46 (DEC 02 04:21) 77 (DEC 01 16:00) MAP 118 (DEC 02 11:00) 62 (DEC 02 06:00) 137 (DEC 01 16:) SpO2 95 (DEC 02:00) 95 (DEC 02:00) 96 (DEC 01:15) Physical Examination VS/Measurements Vitals Signs (last 24 hrs) Last Charted Minimum Maximum Temp 98.1 (DEC 02:00) 98 (DEC 01 18:30) 98.3 (DEC 01:15) Apical HR L 59 (DEC 02:11) L 59 (DEC 02:11) L 59 (DEC 02:) Mon HR 52 (DEC 02:00) 52 (DEC 02:00) 64 (DEC 01:15) SBP H 149 (DEC 02:) 93 (DEC 01 18:00) H 178 (DEC 01:) DBP 63 (DEC 02:) L 46 (DEC 02 04:21) 77 (DEC 01:) MAP 118 (DEC 02:00) 62 (DEC 02 06:00) 137 (DEC 01 16:00) SpO2 95 (DEC 02 11:00) 95 (DEC 02 11:00) 96 (DEC 01:15) General: Alert and oriented, No acute distress. Eye: Pupils are equal, round and reactive to light, Extraocular movements are intact. HENT: Normocephalic, Normal hearing. Neck: Supple, No jugular venous distention. Respiratory: Lungs are clear to auscultation, Breath sounds are equal. Cardiovascular: Normal rate, Regular rhythm. Gastrointestinal: Soft, Non-tender, Normal bowel sounds. Genitourinary: No costovertebral angle tenderness. Lymphatics: No lymphadenopathy neck, axilla, groin. Musculoskeletal: Normal range of motion, Normal strength. Integumentary: Dry, Intact. Neurologic: Alert, Oriented. Psychiatric: Cooperative, Appropriate mood & affect. Review / Management Results review: Labs (Last four charted values) WBC 6.4 (DEC 02) 6.0 (DEC 01) 8.9 (NOV 30) HB L 11.5 (DEC 02) L 11.8 (DEC 01) L 11.8 (NOV 30) HCT L 34.5 (DEC 02) L 35.2 (DEC 01) L 35.3 (NOV 30) Plt L 146 (DEC 02) L 143 (DEC 01) L 162 (NOV 30) Na 144 (DEC 02) 145 (DEC 01) 141 (NOV 30) K 4.2 (DEC 02) 4.1 (DEC 01) 4.5 (NOV 30) Cl H 114 (DEC 02) H 115 (DEC 01) 111 (NOV 30) CO2 26 (DEC 02) 25 (DEC 01) 25 (NOV 30) BUN H 24 (DEC 02) H 24 (DEC 01) H 32 (NOV 30) Cr 1.30 (DEC 02) 1.20 (DEC 01) H 1.70 (NOV 30) Glu R H 125 (DEC 02) 102 (DEC 01) 75 (NOV 30) Ca 8.9 (DEC 02) 8.7 (DEC 01) 9.3 (NOV 30) Lactic 0.5 (NOV 30) PT 11.0 (NOV 30) INR 1.0 (NOV 30) AST 13 (DEC 02) 15 (NOV 30) ALT 17 (DEC 02) 19 (NOV 30) ALK P 68 (DEC 02) 73 (NOV 30) T Bili 0.6 (DEC 02) 0.5 (NOV 30) PTN L 6.3 (DEC 02) 6.8 (NOV 30) ALB L 3.3 (DEC 02) 3.8 (NOV 30) Troponin <0.015 (NOV 30) . Impression and Plan Encephalopathy, with altered mental status CTA head and neck unremarkable Currently patient at and oriented x3 An acute etiology. much better 0n 7-8 Order orthostatic vitals Order ammonia, TSH Neurology consult -Left carotid artery stenosis, status post recent stent Continue with platelet [facility] surgery- consult. dc 7-7 by [facility] surfgery -Hypertension, labile and hypotension Hold oral hypoglycemic agent at admission Ordered orthostatic vitals -coreg 6 q 6 hr changed to metoprolol 25 mg twice a day on December 02 -lisinopril 5 bid -clonidine 0.1 bid at home. will try to get away from clonidine because rebound htn so stopped it. -alisha onStage III kidney disease Monitor kidney function Avoid toxic medications Gentle IV hydration. creat 1.7 to 1.2 to 1.3 -Diabetes mellitus Hold oral hypoglycemic agent Insulin signs scale Monitor blood sugar -Hypothyroidism Continue with levothyroxine Check TSH CODE STATUS patient is full code DVT prophylaxis heparin december 01. 35 mins spent on follow plaseant patient. very labile htn and hypotension. symptoms with low bp at home sbp 90 per daughter. change to coreg 6 q 6 hours so we can taper titrate. started lisinorpl 5 bid. Sunday, December 02, 2018. 25 minutes spent on the follow-up of this pleasant gentleman symptoms seem to be improved. Blood pressure seems to be stabilizing however cardiology is changed Coreg to metoprolol first dose this morning. White blood cell count is 6, creatinine is increased slightly from 1.2-1.3. Plan to watch the patient today make sure that his blood pressure remains stable to try to minimize chance of bouncing back hospitalized he did 2 days ago. [employer] system used. Computer program makes numerous spelling grammar mistakes. If you have any questions or concerns do not hesitate call Dr. Max Holbrook at cell phone number [phone]. documented in this encounter Plan of Treatment Not on file documented as of this encounter Visit Diagnoses Not on filedocumented in this encounter
--- OUTSIDE RECORDS SUMMARY | 2024-11-24 18:02 | XMS_ITS | Encounter Summary ---
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 Name Role Phone Unavailable Primary Care Provider Unavailabl e Encounter Details Date Type Department Care Team (Late st Contact Info) Description 12/03/2018 Transcribed Document [facility] Family Medicine [address] [place] [address] ProviderBrianne MD [address] [place], [place] [id number] Social History Tobacco Use Types Packs/Day Years Used Date Smoking Tobacco: Never Assessed Sex and Gender Information Value Date Recorded Sex Assigned at Male 11/21/2021 1:59 PM CDT Legal Sex Male 1:59 PM CDT Gender Identity Male 11/21/2021 1:59 PM CDT Sexual Orientation Not on file documented as of this encounter Miscellaneous Notes * Cerner Conversion Note - Brianne ProviderMD - 12/03/2018 4:10 PM CDT PINA/IMM Entered On: 12/03/2018 16:10 EDT Performed On: 12/03/2018 16:10 EDT by ALFREDO REINOSO RN PINA/LOY Important Medicare Message Reviewed With : Patient Important Medicare Message Reviewed D/T : 12/03/2018 9:40 EDT ALFREDO REINOSO RN - 12/03/2018 16:10 EDT Electronically signed by Victor Manuel Alcala Conversion Career Development Facilitator Alpesh at 09/13/2022 4:32 PM CDT documented in this encounter Plan of Treatment Not on file documented as of this encounter Visit Diagnoses Not on filedocumented in this encounter
--- OUTSIDE RECORDS SUMMARY | 2024-11-24 18:02 | XMS_ITS | Encounter Summary ---
Author Organization [employer] ([place], [place], [place], [place]) Address [address] [place] [address] Care Team Providers Care Maintenance Chief Name Role Phone Unavailable Primary Care Provider Unavailabl e Encounter Details Date Type Department Care Team (Late st Contact Info) Description 12/01/2018 Transcribed Document [facility] Cardiology [address] [phone] Jose A Ascencio MD [address] [facility] [address] [place] [address] Social History Tobacco Use Types Packs/Day Years Used Date Smoking Tobacco: Never Assessed Sex and Gender Information Value Date Recorded Sex Assigned at Male 11/21/2021 1:59 PM CDT Legal Sex Male 1:59 PM CDT Gender Identity Male 11/21/2021 1:59 PM CDT Sexual Orientation Not on file documented as of this encounter Miscellaneous Notes * Cerner Conversion Note - Jose A Ascencio MD - 12/01/2018 9:58 PM EDT Patient: NADER TOLENTINO Age: 78 years Sex: Male : 1940 Associated Diagnoses: None Author: AIDAN DIEGO, PAC-CAT Basic Information PCP: Chief Complaint HTN History of Present Illness 78 years old male patient past medical history of HTN, HLD, DM, prior neck cancer (status post radiation), left carotid artery stenosis (status post stent on Tuesday 11/28) history of TIA brought to the ER by family after patient appeared confused with difficult speech and some numbness in upper ext. Denies difficulty swallowing. Blood pressure was difficult to control for 2 months prior to procedure. home dose of coreg had been titrated to 25mg twice daily and clonidine added at night. Pt's family states coreg was decreased back to 12.5mg twice daily post procedure. BP was difficult to control in hospital. Family states when he BP would drop at home he would be very confused. BP changes nonpositional. Symptoms resolved when BP was normal but then would go high. He denies any current defects. BP currently is 138/82. Review of Systems Constitutional: Negative except as documented in history of present illness. Eye: Negative except as documented in history of present illness. Ear/Nose/Mouth/Throat: Negative except as documented in history of present illness. Respiratory: Negative except as documented in history of present illness. Cardiovascular: Negative except as documented in history of present illness. Gastrointestinal: Negative except as documented in history of present illness. Genitourinary: Negative except as documented in history of present illness. Hematology/Lymphatics: Negative except as documented in history of present illness. Endocrine: Negative except as documented in history of present illness. Immunologic: Negative except as documented in history of present illness. Musculoskeletal: Negative except as documented in history of present illness. Integumentary: Negative except as documented in history of present illness. Neurologic: Negative except as documented in history of present illness. Psychiatric: Negative except as documented in history of present illness. Health Status Allergies (1) Active Reaction NSAIDs Kidney disease Home Medications (14) Active aspirin 81 mg [...] Int Units = 1 Tab, Oral, Daily Allergies: Allergic Reactions (Selected) Severity Not Documented NSAIDs- Kidney disease. Current medications: (Selected) Inpatient Medications Ordered DuoNeb [...] PRN: Nausea aspirin: 81 mg, Oral, Daily carvedilol: 6.25 mg, Oral, Q6H clopidogrel: 75 mg, Oral, At Bedtime glimepiride: 4 mg, Oral, With Breakfast heparin: 5,000 Units, SubCutaneous, Q8H hydrALAZINE: 10 mg, IV Push, Q6H, PRN: Other (See Comment) insulin lispro sliding scale: Scale A:, SubCutaneous, AC and at Bedtime levothyroxine: 88 mcg, Oral, Daily lisinopril: 5 mg, Oral, BID pantoprazole: 40 mg, Oral, Daily Problem list: All Problems Arthritis / SNOMED CT 7490960 / Confirmed At risk for sleep apnea / IMO 05779553 / Confirmed Barretts esophagus / SNOMED CT 837746806 / Confirmed Carotid artery disease / SNOMED CT 0197734093 / Confirmed Carotid stent occlusion / SNOMED CT 328755281 / Confirmed Cataract//extraction / SNOMED CT 188336279 / Confirmed Urinary catheter complication////DO NOT CATH///URINARY / SNOMED CT 5579221079 / Confirmed ARTIFICAL SPHINCTER Diabetes mellitus type II / SNOMED CT 73916724 / Confirmed Disorder of prostate//cancer / SNOMED CT 41009155 / Confirmed Urinary //artifical urinary sphincter / SNOMED CT 354155357 / Confirmed GERD - Gastro-esophageal reflux disease / SNOMED CT 1370772294 / Confirmed Hard of hearing / SNOMED CT 030278117 / Confirmed Right hip pain / SNOMED CT 60554532 / Confirmed Hyperlipidemia / SNOMED CT 32317155 / Confirmed Hypertension / SNOMED CT 33085529 / Confirmed Kidney disease///stage 3 / SNOMED CT 260155811 / Confirmed Right knee pain / SNOMED CT 78882262 / Confirmed Cancer//left side of neck / SNOMED CT 8633664154 / Confirmed Renal calculus / SNOMED CT 182130853 / Confirmed Thyroid disease / SNOMED CT 692069421 / Confirmed TIA (transient ischemic attack) 2013 and 05/2018 / SNOMED CT 640224663 / Confirmed, Active Problems (21) Arthritis At [...] urinary sphincter Urinary catheter complication////DO NOT CATH///URINARY Histories No education data available. Social & Psychosocial Habits Alcohol 11/12/2018 Alcohol Use History, Social Habits No Home/Environment 11/12/2018 Lives with: Alone Home equipment: Glucose monitoring Substance Abuse 11/12/2018 Recreational Drug Use History No Recreational Drug Use Last 12 Months No Tobacco 11/12/2018 Smoking Status Never (less than 100 in l Smokeless Tobacco Status Never Past Medical History: No active or resolved past medical history items have been selected or recorded. Family History: No family history items have been selected or recorded., no significant family history Procedure history: EGD in 2017 at 77 Years. colonoscopy in the month of 06/2016 at 76 Years. EGD in 2012 at 73 Years. colonoscopy///EGD in 2010 at 71 Years. varicose veins right leg in the month of 04/2010 at 70 Years. varicose vein left leg in 2009 at 70 Years. artifical urinary sphincter in 2007 at 68 Years. tumorv exc. left side of neck//cancer in 1997 at 58 Years. GALLBLADDER. kidney stones. left knee/torn meniscus. left shoulder///torn rotator. prostatectomy. kidney stone removal. cataract removal. Physical Examination VS/Measurements Vital Signs/Vital Measures 12/01/2018 19:00 EDT Systolic Blood Pressure 139 mmHg Diastolic Blood Pressure 62 mmHg Mean Arterial Pressure (MAP)-BMDI 108 12/01/2018 18:30 EDT Temperature, Fahrenheit 98 Deg F Heart Rate Monitored 64 bpm , Vitals Signs (last 24 hrs) Last Charted Minimum Maximum Temp 98 (DEC 01 18:30) 97.5 (DEC 01 02:00) 99.0 (DEC 01 06:37) Apical HR 85 (NOV 30 22:43) 72 (NOV 30 21:38) 85 (NOV 30 22:43) Mon HR 61 (DEC 01 19:00) 57 (DEC 01 11:00) 72 (NOV 30 21:38) Resp Rate 16 (DEC 01 06:37) 14 (DEC 01 02:00) H 34 (NOV 30 21:38) SBP 139 (DEC 01 19:00) 93 (DEC 01 18:00) H 199 (NOV 30 22:43) DBP 62 (DEC 01 19:00) L 44 (DEC 01 01:00) H 92 (NOV 30 21:00) MAP 108 (DEC 01 19:00) 60 (DEC 01 01:00) 147 (NOV 30 21:00) SpO2 96 (DEC 01 15:15) 96 (NOV 30 21:00) 97 (NOV 30 21:38) General: Alert and oriented, No acute distress. HENT: Oral mucosa is moist. Neck: Supple, No jugular venous distention. Respiratory: Lungs are clear to auscultation, Respirations are non-labored, Breath sounds are equal. Cardiovascular: Normal rate, Regular rhythm, No murmur, Normal peripheral perfusion, No edema. Gastrointestinal: Soft, Normal bowel sounds. Genitourinary: No costovertebral angle tenderness. Musculoskeletal: Normal range of motion. Integumentary: Warm, Dry. Neurologic: Alert, Oriented. Psychiatric: Cooperative, Appropriate mood & affect. Review / Management DEC 01 07:22 145 H 115 H 24 / 102 4.1 25 1.20 \ DEC 01 07:22 \ L 11.8 / 6.0 L 143 / L 35.2 \ Cardiac Markers (Current Encounter/Past 24 Hours) No Cardiac Marker Results Found (Past 24 Hours) Blood Gases (Current Encounter/Past 24 Hours) No Blood Gas Results Found (Past 24 Hours) Radiology Results (Last 48 hours) [id number] -- 11/30/2018 19:19 CR Chest 1 Vw Portable (11/30/2018 16:48) Result: PORTABLE CHEST 11/30/2018 4:38 PM HISTORY: Altered mental status.COMPARISON: None.FINDINGS: There is ectasia of the aorta with calcified plaqueidentified. The heart is normal in size. The mediastinum isunremarkable. There is evidence of old calcified granulomatous disease.The lungs are clear. There is no pneumothorax. The osseous structures are unremarkable. IMPRESSION: No acute cardiopulmonary process.Images reviewed, interpreted, and dictated by Dr. Phillip Orozco.Transcribed by Javed Rodriguez PA-C, R.T. (N), C N M T.I have personally viewed, interpreted and dictated the examination. Ihave read and agree with the above final transcribed report. CTA Head (11/30/2018 18:22) Result: CT NECK ANGIO, WITHOUT AND WITH CONTRASTHISTORY: Altered mental status. Recent left carotid stent placement.TECHNIQUE: Thin-section axial CT with IV contrast supplemented withmultiplanar reconstruction. This study was performed with techniques tokeep radiation doses as low as reasonably achievable, (ALARA).Individualized dose reduction techniques using automated exposurecontrol or adjustment of mA and/or kV according to the patient size wereemployed.COMPARISON: CTA of the neck of 11/12FINDINGS:Aortic arch: Unremarkable except for atherosclerotic calcification.Right carotid: Ulcerative plaque is seen at multiple levels in thecommon carotid artery, but there is no CCA stenosis. There issignificant atherosclerotic calcification at the carotid bifurcation,but there is no ICA stenosis according to NASCET criteria.Left carotid: Ulcerative plaque is seen at several levels of the CCA. Astent extends from the distal CCA into the proximal ICA. The stent ispatent. The remainder of the ICA is unremarkable.Vertebrals: There is a dominant left vertebral artery. Vertebralarteries are otherwise unremarkable.IMPRESSION: Ulcerated plaque in the common carotid arteriesbilaterally, but no significant stenosis. There is patency of the stentin the left ICA.CTA HEADHISTORY: As aboveTECHNIQUE: Thin-section axial CT with contrast with multiplanarreconstruction. This study was performed with techniques to keepradiation doses as low as reasonably achievable, (ALARA). Individualizeddose reduction techniques using automated exposure control or adjustmentof mA and/or kV according to the patient size were employed.FINDINGS: The intracranial portions of the internal carotid arteriesare normal as are the anterior and middle cerebral arteries. Theintracranial vertebral arteries, the basilar artery and their majorbranches are also within normal limits.IMPRESSION: Unremarkable. CTA Neck (11/30/2018 18:22) Result: CT NECK ANGIO, WITHOUT AND WITH CONTRASTHISTORY: Altered mental status. Recent left carotid stent placement.TECHNIQUE: Thin-section axial CT with IV contrast supplemented withmultiplanar reconstruction. This study was performed with techniques tokeep radiation doses as low as reasonably achievable, (ALARA).Individualized dose reduction techniques using automated exposurecontrol or adjustment of mA and/or kV according to the patient size wereemployed.COMPARISON: CTA of the neck of 11/12FINDINGS:Aortic arch: Unremarkable except for atherosclerotic calcification.Right carotid: Ulcerative plaque is seen at multiple levels in thecommon carotid artery, but there is no CCA stenosis. There issignificant atherosclerotic calcification at the carotid bifurcation,but there is no ICA stenosis according to NASCET criteria.Left carotid: Ulcerative plaque is seen at several levels of the CCA. Astent extends from the distal CCA into the proximal ICA. The stent ispatent. The remainder of the ICA is unremarkable.Vertebrals: There is a dominant left vertebral artery. Vertebralarteries are otherwise unremarkable.IMPRESSION: Ulcerated plaque in the common carotid arteriesbilaterally, but no significant stenosis. There is patency of the stentin the left ICA.CTA HEADHISTORY: As aboveTECHNIQUE: Thin-section axial CT with contrast with multiplanarreconstruction. This study was performed with techniques to keepradiation doses as low as reasonably achievable, (ALARA). Individualizeddose reduction techniques using automated exposure control or adjustmentof mA and/or kV according to the patient size were employed.FINDINGS: The intracranial portions of the internal carotid arteriesare normal as are the anterior and middle cerebral arteries. Theintracranial vertebral arteries, the basilar artery and their majorbranches are also within normal limits.IMPRESSION: Unremarkable. Results review: Labs (Last four charted values) WBC 6.0 (DEC 01) 8.9 (NOV 30) HB L 11.8 (DEC 01) L 11.8 (NOV 30) HCT L 35.2 (DEC 01) L 35.3 (NOV 30) Plt L 143 (DEC 01) L 162 (NOV 30) Na 145 (DEC 01) 141 (NOV 30) K 4.1 (DEC 01) 4.5 (NOV 30) Cl H 115 (DEC 01) 111 (NOV 30) CO2 25 (DEC 01) 25 (NOV 30) BUN H 24 (DEC 01) H 32 (NOV 30) Cr 1.20 (DEC 01) H 1.70 (NOV 30) Glu R 102 (DEC 01) 75 (NOV 30) Ca 8.7 (DEC 01) 9.3 (NOV 30) Lactic 0.5 (NOV 30) PT 11.0 (NOV 30) INR 1.0 (NOV 30) AST 15 (NOV 30) ALT 19 (NOV 30) ALK P 73 (NOV 30) T Bili 0.5 (NOV 30) PTN 6.8 (NOV 30) ALB 3.8 (NOV 30) Troponin <0.015 (NOV 30) . Impression and Plan IMPRESSION: *Labile HTN *Carotid stenosis -s/p stenting 11/28/18 *TIA *DM PLAN; Recommend switching Coreg to Metoprolol for less alpha affects. Holding criteria given. Discontinue clonidine. Will consider adding Amlodipine if BP increases. Agree with IV Hydralazine as needed until BP is better controlled. ECHO to asess EF. Orthostatic BP ordered. Futher recommendations pending response. documented in this encounter Plan of Treatment Not on file documented as of this encounter Visit Diagnoses Not on filedocumented in this encounter
--- OUTSIDE RECORDS SUMMARY | 2024-11-24 18:02 | XMS_ITS | Encounter Summary ---
Author Organization [employer] ([place], [place], [place], [place]) Address [address] [place] [address] Care Team Providers Care Couture Dressmaker Name Role Phone Unavailable Primary Care Provider Unavailabl e Encounter Details Date Type Department Care Team (Late st Contact Info) Description 12/01/2018 Transcribed Document [facility] [place] [facility] [address] [place] [address] ProviderBrianne MD [address] [place] [id number] Social History Tobacco Use Types Packs/Day Years Used Date Smoking Tobacco: Never Assessed Sex and Gender Information Value Date Recorded Sex Assigned at Male 11/21/2021 1:59 PM CDT Legal Sex Male 1:59 PM CDT Gender Identity Male 11/21/2021 1:59 PM CDT Sexual Orientation Not on file documented as of this encounter Miscellaneous Notes * Cerner Conversion Note - Brianne ProviderMD - 12/01/2018 2:17 PM CDT Evaluation, Physical Therapy Entered On: 12/01/2018 14:47 EDT Performed On: 12/01/2018 10:36 EDT by CORKY BELTRE, PT General Information, PT Visit Type, PT : Initial evaluation Patient Orders : Order Date Order Ordering 11/30/2018 19:20 PT Evaluation and Treatment Ordered By: ROBERTO BROCK MD 12/01/2018 14:17 PT Evaluation and Treatment Ordered By: RIVAS COBURN MD-KALINA Active Diagnoses : 11/30/2018 00:00 Altered mental status 11/30/2018 00:00 Disorientation, unspecified 11/30/2018 00:00 Other disorder of circulatory system Therapy Diagnosis, PT : assessment for skilled PTx -- no needs noted at eval Onset of Problem, PT : 11/30/2018 EDT Admission Date : 11/30/2018 19:19 Co-treated by, PT : Occupational Therapist Personal Devices : Personal Devices No Devices Recorded Assistive Devices : Assistive Devices No Devices Recorded General Information Comment, PT : 78 yo male adm to [facility] 11/30 for Flucuating BP and Acute Contusion Pt was discharged home 11/30 at 1300 from [facility] PMHx significant for Neck CA, OA, Carotid Artery Disease with STENT 11/28/2018, DM, HLD, CKD(III), TIA CORKY BELTRE, PT - 12/01/2018 14:30 EDT General Status Patient Received Status : Supine in bed, Other: daughter present Treatment Start Time : 12/01/2018 10:16 EDT Patient Left Status : Up in restroom, RN/PCT informed, Family/Visitors at bedside, Communication board completed, All needs met and within reach RN/PCT Informed Comment : yes per DAV Lemon Treatment End Time : 12/01/2018 10:36 EDT Treatment Time : 20 Minute(s) Actual Treatment Time : 20 Minute(s) CORKY BELTRE, PT - 12/01/2018 14:30 EDT History and Environment Living Situation, Therapy : Home Patient Lives With : Alone Persons Assisting Patient at Home : Alone Professional Skilled Services : None Persons Providing Information : Patient Home Equipment Therapy, PT : Cane, Crutches Cane : Cane, single point Crutches : Crutches, axillary Home Setup : One story Bedroom Location : Main level Bathroom #1 Location : Main level Bathroom #1 Features : Toilet, Tub/Shower Stairs : No Ramp : No CORKY BELTRE, PT - 12/01/2018 14:30 EDT Prior Level of Function PT GRID Prior LOF Ambulation, Household : Independent Prior LOF Ambulation, Community : Independent Prior LOF Bed Mobility : Independent Prior LOF Toileting : Independent Prior LOF Transfer : Independent CORKY BELTRE PT - 12/01/2018 14:30 EDT Intervention Summary Heart Rate/Pulse Pre-intervention : 63 bpm BP Systolic Pre-intervention : 142 mmHg BP Diastolic Pre-intervention : 69 mmHg Heart Rate/Pulse Post-intervention : 61 bpm BP Systolic Post-intervention : 179 mmHg BP Diastolic Post-intervention : 82 mmHg Therapist Assessment Post-intervention : after amb approx 300 ft CORKY BELTRE, PT - 12/01/2018 14:30 EDT Upper Extremity Right UE Active ROM : WFL Right UE Strength : WFL Left UE Active ROM : WFL Left UE Strength : WFL CORKY BELTRE, PT - 12/01/2018 14:30 EDT Lower Extremity RLE Active ROM : WFL Right LE Strength : [facility] LLE Active ROM : WFL Left LE Strength : WF CORKY BELTRE, PT - 12/01/2018 14:30 EDT Functional Mobility Mobility Grid Bed Roll Left : Rehab Complete independence Bed Scooting : Rehab Complete independence Supine to Sit : Rehab Complete independence Sit to Stand : Rehab Complete independence Stand to Sit : Rehab Complete independence CORKY BELTRE, PT - 12/01/2018 14:30 EDT Gait Training/Assessment, PT Weight Bearing Status : Full Gait Assistance Level : Independent, complete Walking Distance : pprox 300 ft Ambulatory Devices : Gait belt Gait Deviations : Yes Right Lower Gait Deviation : Trendelenburg Gait Training Comment : per daughter pt is in process of getting medical clearance for R [facility] for DJD CORKY BELTRE, PT - 12/01/2018 14:30 EDT Cognition Assessment, PT Orientation : Oriented x 4 Safety/Judgment Comment : good Follows Basic Command Assessment : yes Attention Assessment : Present CORKY BELTRE, PT - 12/01/2018 14:30 EDT Edu Topics Physical Therapy Education Grid Balance Training : Returns demonstration Bed Mobility Training : Returns demonstration Gait Training : Returns demonstration Role of Physical Therapy : Verbalizes understanding Safety : Returns demonstration Therapeutic Exercises : Verbalizes understanding Transfer Training : Returns demonstration CORKY BELTRE, PT - 12/01/2018 14:30 EDT Indication Assesessment, PT Physical Therapy Indicated : No Physical Therapy Not Indicated : Independent, complete, No skilled services ind. Potential Barriers To Therapy : None evident Rehabilitation Potential : At prior level of function CORKY BELTRE, PT - 12/01/2018 14:30 EDT Plan of Care, PT PT Tx Plan/Goals Established w Patient : No Reason Tx/Plan Not Established W/ Pt PT : pt independent at this time CORKY BELTRE, PT - 12/01/2018 14:30 EDT Treatment Note Subjective Comment : agreed to PTx/OTx evals Patient's Response to Treatment : good Assessment : no skilled needs identified at this time pt completely independent at this time Plan for Treatment : EVAL ONLY CORKY BELTRE, PT - 12/01/2018 14:30 EDT Pain Assessment Pain Scaled Used : 0-10 Pain scale Pain Score Pre-Intervention : 0 CORKY BELTRE PT - 12/01/2018 14:30 EDT Image 1 - Images currently included in the form version of this document have not been included in the text rendition version of the form. Anticipated Discharge Needs, OT/PT Anticipated Discharge to : Home, with family care Recommend Continued Therapy at Discharge : No CORKY BELTRE, PT - 12/01/2018 14:[address] [facility] PT Charges PT Eval Low Complexity : 1 CORKY BELTRE, PT - 12/01/2018 14:30 EDT documented in this encounter Plan of Treatment Not on file documented as of this encounter Visit Diagnoses Not on filedocumented in this encounter
--- OUTSIDE RECORDS SUMMARY | 2024-11-24 18:02 | XMS_ITS | Encounter Summary ---
Author Organization [facility] ([place], [place], [place], [place]) Address [address] [place] [address] Care Team Providers Care Mains And Service Supervisor Name Role Phone Unavailable Primary Care Provider Unavailabl e Encounter Details Date Type Department Care Team (Late st Contact Info) Description 12/03/2018 Transcribed Document [facility] [place] [facility] [place] [address] ProviderBrianne MD [address] [place] [address] Social History Tobacco Use Types Packs/Day Years Used Date Smoking Tobacco: Never Assessed Sex and Gender Information Value Date Recorded Sex Assigned at Male 11/21/2021 1:59 PM CDT Legal Sex Male 1:59 PM CDT Gender Identity Male 11/21/2021 1:59 PM CDT Sexual Orientation Not on file documented as of this encounter Miscellaneous Notes * Cerner Conversion Note - Brianne Kim MD - 12/03/2018 3:13 PM CDT [facility] [place] [address] NADER TOLENTINO :1940 Visit Time:12/02/2018 Your Visit Summary Your Care Team Admitting Physician - ROBERTO BROCK MD Attending Physician - ROBERTO BROCK MD Primary Care Physician - LORRAINE, AIDEE Referring Physician - ADILSON WELLS MD Your Diagnosis Acute metabolic encephalopathy Altered mental status Confusion Fluctuating blood pressure Discharge Vitals Temperature 36.7 ??C Heart Rate (Monitored) 56 Blood Pressure 155/69 What to do next Instructions From Your Care Team STOP the following medications: STOP Coreg (Carvedilol) STOP Clonidine STOP Simvastatin (Zocor) STOP Lisinopril 20 mg tablets --- See new dose below Discharge Activity: no driving until cleared by neurologist, Discharge Activity: Other (use Special Instructions) Diet: Discharge Diet: Heart healthy diet Follow-Up Appointments Follow Up with [facility]UE [facility] When Within 2 weeks Where: [address] [place] [address]- [phone] Business (1) Follow Up with GALEN THAKUR When Within 2 to 4 weeks Comments Patient should call for a follow up with his outpatient neurologist. Where: [address] [facility] [place] [address]- Business (1) Follow Up with [facility] When Within 2 to 3 days Where: [address] [place] [address]- Business (1) [facility] with [facility] When Only if needed Comments Patient's family states [facility] is his Primary Care Provider. Please contact the [facility] at if you need assistance scheduling a Specialist or Primary Care Provider in the future. Medications What How Much When Instructions Next Dose atorvastatin (atorvastatin 20 mg oral tablet) 1 Tablet(s) Oral At Bedtime * Stop Simvastatin * Printed Prescription metoprolol (Metoprolol Tartrate 25 mg oral tablet) 1 Tablet(s) Oral Two Times A Day * Stop Coreg (carvedilol) * Printed Prescription polyethylene glycol 3350 (MiraLax oral powder for reconstitution) 17 Gram(s) Oral Every Day Duration: 14 Day(s) Printed Prescription aspirin (aspirin 81 mg oral delayed release tablet) 1 Tablet(s) Oral Every Day Printed Prescription lisinopril (lisinopril 5 mg oral tablet) 1 Tablet(s) Oral Two Times A Day * New Dose * Printed Prescription cholecalciferol (Vitamin D3 2000 units oral tablet) 1 Tablet(s) Oral Every Day clopidogrel (clopidogrel 75 mg oral tablet) 1 Tablet(s) Oral At Bedtime cyanocobalamin (Vitamin B12 1000 mcg oral tablet) 1 Tablet(s) Oral Every Day glimepiride (glimepiride 2 mg oral tablet) 2 Tablet(s) Oral With Breakfast levothyroxine (levothyroxine 88 mcg (0.088 mg) oral tablet) 1 Tablet(s) Oral Every Day multivitamin (Vitamin B Complex oral capsule) 1 Capsule(s) Oral Every Day omega-3 polyunsaturated fatty acids (Triple Strength Red Krill Oil 1000 mg oral capsule) 1 Capsule(s) Oral Every Day omeprazole (omeprazole 40 mg oral delayed release capsule) 1 Capsule(s) Oral After Dinner ubiquinone (elppa CoQ10 50 mg oral capsule) 2 Capsule(s) Oral Every Day Take your medications faithfully. Do NOT skip medication. Do NOT stop taking medications without the direction of a physician. Carry a list of your medications with you at all times, and take this medication list with you to your first follow up visit. Report any side effects. Avoid herbal remedies unless discussed with your physician. As part of your treatment plan, your physician may have prescribed a limited course of a controlled substance. This medication may be given to help people with moderate or severe pain or for other medical conditions, but there are risks involved with treatment. Common side effects may include nausea, constipation, drowsiness, sweating, itching, dry mouth, and rash. More serious side effects may include cognitive and motor impairment, like problems with thinking, concentrating, alertness, and movement (e.g. slowed reflexes), and driving and operating heavy machinery can be dangerous. It is important for you to talk to your physician if you have these side effects or questions. These controlled substances can produce physical dependence and be habit-forming if taken for an extended period of time, which means that the body has gotten used to them and may experience withdrawal symptoms if they are abruptly stopped. Withdrawal symptoms can include runny nose, sweating, goose bumps, diarrhea, abdominal cramping, rapid heartbeat, difficulty sleeping, and nervousness. Please dispose of unused and medications per your retail pharmacy guidance. Allergies NSAIDs (Kidney disease) Immunizations This Visit No Immunizations Found Stroke/TIA Instructions Individualized Stroke Risk Factors Individualized Stroke Risk Factors *Q: Diabetes, Heart disease, Hypertension/High blood pressure, Peripheral vascular disease Stroke/TIA Signs/Symptoms to Report Immediately: Sudden onset difficulty speaking, Sudden onset difficulty understanding speech, Sudden onset change in vision, Sudden onset weakness particulary on one side of the body, Sudden onset numbness/tingling, Sudden severe headache, Sudden dizziness or trouble with gait, Call : EMS activation is crucial Mutually Agreed Upon Goals My LDL Level: My LDL Level: Education Materials Confusion Confusion is the inability to think [...] 06/20/2005 Document Revised: 11/30/2016 Document Reviewed: 06/18/2014 [employer] Interactive Patient Education ?? 2019 [employer]. Hypertension Hypertension, commonly called high blood pressure, [...] be at higher risk if you are -Malaysian. ??? Gender. Men are at higher risk [...] of beer, 5 oz of wine, or 1?? oz of hard liquor. Lifestyle ??? Work [...] provider. This is important. Medicines ??? Take lbgs-cuj-rxxynpg and prescription medicines only as told by [...] 05/13/2006 Document Revised: 04/10/2017 Document Reviewed: 04/10/2017 [employer] Interactive Patient Education ?? 2019 [employer]. Stroke Prevention Some medical conditions and behaviors [...] of beer, 5 oz of wine, or 1?? oz of hard liquor. ??? Stop any [...] lot or have excessive sleepiness. ??? Take hsfy-svc-onbxhrh and prescription medicines only as told by [...] more information For more information, visit: ??? [place] Stroke Association: www.strokeassociation.org ??? National Stroke Association: [...] 06/20/2005 Document Revised: 06/18/2017 Document Reviewed: 06/18/2017 [employer] Interactive Patient Education ?? 2019 [employer] metoprolol (oral/injection) (me TOE pro lol) Kapspargo Sprinkle, Lopressor, Metoprolol Succinate ER, Metoprolol Tartrate, Toprol-XL What is the most important information I should know about metoprolol? You should not use this medicine if you have a serious heart problem (heart block, sick sinus syndrome, slow heart rate), severe circulation problems, severe heart failure, or a history of slow heart beats that caused fainting. What is metoprolol? Metoprolol is a beta-christian that affects the heart and circulation (blood flow through arteries and veins). Metoprolol is used to treat angina (chest pain) and hypertension (high blood pressure). It is also used to lower your risk of or needing to be hospitalized for heart failure. Metoprolol injection is used during the early phase of a heart attack to lower the risk of . Metoprolol may also be used for other purposes not listed in this medication guide. What should I discuss with my healthcare provider before taking metoprolol? You should not use this medicine if you are allergic to metoprolol, or other beta-blockers (atenolol, carvedilol, labetalol, nadolol, nebivolol, propranolol, sotalol, and others), or if you have: ? a serious heart problem such as heart block, sick sinus syndrome, or slow heart rate; ?? severe circulation problems; ?? severe heart failure (that required you to be in the hospital); or ?? a history of slow heart beats that have caused you to faint. Tell your doctor if you have ever had: ? asthma, chronic obstructive pulmonary disease (COPD), sleep apnea, or other breathing disorder; ?? diabetes (taking metoprolol may make it harder for you to tell when you have low blood sugar); ?? liver disease; ?? congestive heart failure; ?? problems with circulation (such as Raynaud's syndrome); ?? a thyroid disorder; or ?? pheochromocytoma (tumor of the adrenal gland). Do not give this medicine to a child without medical advice. Tell your doctor if you are or plan to become . It is not known whether metoprolol will harm an unborn baby. However, having high blood pressure during may cause complications such as diabetes or eclampsia (dangerously high blood pressure that can lead to medical problems in both mother and baby). The benefit of treating hypertension may outweigh any risks to the baby. Ask a doctor before using this medicine if you are breast-feeding. Metoprolol can pass into breast milk and may cause dry skin, dry mouth, diarrhea, constipation, or slow heartbeats in your baby. How should I take metoprolol? Follow all directions on your prescription label and read all medication guides or instruction sheets. Your doctor may occasionally change your dose. Use the medicine exactly as directed. Metoprolol should be taken with a meal or just after a meal. Take the medicine at the same time each day. Swallow the capsule whole and do not crush, chew, break, or open it. A Toprol XL tablet can be divided in half if your doctor has told you to do so. Swallow the half-tablet whole, without chewing or crushing. Measure liquid medicine carefully. Use the dosing syringe provided, or use a medicine dose-measuring device (not a kitchen spoon). You will need frequent medical tests, and your blood pressure will need to be checked often. If you need surgery, tell the surgeon ahead of time that you are using metoprolol. You should not stop using metoprolol suddenly. Stopping suddenly may make your condition worse. If you have high blood pressure, keep using this medicine even if you feel well. High blood pressure often has no symptoms. You may need to use metoprolol for the rest of your life. Store at room temperature away from moisture and heat. Metoprolol injection is given as an infusion into a vein. A healthcare provider will give you this injection in a medical setting where your heart and blood pressure can be monitored. Metoprolol injections are given for only a short time before switching you to the oral form of this medicine. What happens if I miss a dose? Skip the missed dose and use your next dose at the regular time. Do not use two doses at one time. What happens if I overdose? Seek emergency medical attention or call the Poison Help line at . What should I avoid while taking metoprolol? Avoid driving or hazardous activity until you know how this medicine will affect you. Your reactions could be impaired. Drinking alcohol can increase certain side effects of metoprolol. What are the possible side effects of metoprolol? Get emergency medical help if you have signs of an allergic reaction: hives; difficulty breathing; swelling of your face, lips, tongue, or throat. Call your doctor at once if you have: ? very slow heartbeats; ?? a light-headed feeling, like you might pass out; ?? shortness of breath (even with mild exertion), swelling, rapid weight gain; or ?? cold feeling in your hands and feet. Common side effects may include: ? dizziness, tired feeling; ?? depression, confusion, memory problems; ?? nightmares, trouble sleeping; ?? diarrhea; or ?? mild itching or rash. This is not a complete list of side effects and others may occur. Call your doctor for medical advice about side effects. You may report side effects to FDA at 8-071-HBU-0465. What other drugs will affect metoprolol? Tell your doctor about all your current medicines. Many drugs can affect metoprolol, especially: ? any other heart or blood pressure medications; ?? epinephrine (Epi-Pen); ?? an antidepressant; ?? an ergot medicine--dihydroergotamine, ergonovine, ergotamine, methylergonovine; or ?? an MAO inhibitor--isocarboxazid, linezolid, phenelzine, rasagiline, selegiline, tranylcypromine. This list is not complete and many other drugs may affect metoprolol. This includes prescription and gnsl-hhp-jxrucvs medicines, vitamins, and herbal products. Not all possible drug interactions are listed here. Where can I get more information? Your pharmacist can provide more information about metoprolol. Remember, keep this and all other medicines out of the reach of children, never share your medicines with others, and use this medication only for the indication prescribed. Every effort has been made to ensure that the information provided by [employer] is accurate, up-to-date, and complete, but no guarantee is made to that effect. Drug information contained herein may be time sensitive. [employer] information has been compiled for use by healthcare practitioners and consumers in the [place] and therefore [employer] does not warrant that uses outside of the [place] are appropriate, unless specifically indicated otherwise. [employer]'s drug information does not endorse drugs, diagnose patients or recommend therapy. [employer]'s drug information is an informational resource designed to assist licensed healthcare practitioners in caring for their patients and/or to serve consumers viewing this service as a supplement to, and not a substitute for, the expertise, skill, knowledge and judgment of healthcare practitioners. The absence of a warning for a given drug or drug combination in no way should be construed to indicate that the drug or drug combination is safe, effective or appropriate for any given patient. [facility] does not assume any responsibility for any aspect of healthcare administered with the aid of information [facility] provides. The information contained herein is not intended to cover all possible uses, directions, precautions, warnings, drug interactions, allergic reactions, or adverse effects. If you have questions about the drugs you are taking, check with your doctor, nurse or pharmacist. Copyright 8359-9713 [facility] [employer]. Version: 17.03. Revision Date: 10/22/2018.aspirin (oral) ( pir in) Arthritis Pain, Aspir 81, Aspir-Low, Zoey Childrens Aspirin, Durlaza, Ecotrin, Ecpirin, Fasprin, Halfprin, Miniprin What is the most important information I should know about aspirin? You should not use aspirin if you have a bleeding disorder such as hemophilia, a recent history of stomach or intestinal bleeding, or if you are allergic to an NSAID (non-steroidal anti-inflammatory drug). Aspirin can cause Leah's syndrome, a serious and sometimes fatal condition in children. What is aspirin? Aspirin is a salicylate (us-LUW-ww-ate). It works by reducing substances in the body that cause pain, fever, and inflammation. Aspirin is used to treat pain, and reduce fever or inflammation. Aspirin is sometimes used to treat or prevent heart attacks, strokes, and chest pain (angina). Aspirin should be used for cardiovascular conditions only under the supervision of a doctor. Aspirin may also be used for purposes not listed in this medication guide. What should I discuss with my healthcare provider before taking aspirin? Do not give this medicine to a child or teenager with a fever, flu symptoms, or chicken pox. Aspirin can cause Leah's syndrome, a serious and sometimes fatal condition in children. You should not use aspirin if you are allergic to it, or if you have: ? a recent history of stomach or intestinal bleeding; ?? a bleeding disorder such as hemophilia; or ?? if you have ever had an asthma attack or severe allergic reaction after taking aspirin or an NSAID (non-steroidal anti-inflammatory drug). Tell your doctor if you have ever had: ? asthma or seasonal allergies; ?? stomach ulcers; ?? liver disease; ?? kidney disease; ?? a bleeding or blood clotting disorder; ?? gout; or ?? heart disease, high blood pressure, or congestive heart failure. Taking aspirin during late may cause bleeding in the mother or the baby during delivery. Tell your doctor if you are or plan to become . You should not breast-feed while using this medicine. How should I take aspirin? Use exactly as directed on the label, or as prescribed by your doctor. Take with food if aspirin upsets your stomach. Do not crush, chew, break, or open an enteric-coated or delayed-release pill. Swallow it whole. The chewable tablet form of aspirin must be chewed before swallowing. If you use the orally disintegrating tablet or the dispersible tablet, follow all dosing instructions provided with your medicine. If you need surgery, tell your surgeon you currently use this medicine. You may need to stop for a short time. Do not take this medicine if you smell a strong vinegar odor in the aspirin bottle. The medicine may no longer be effective. Store at room temperature away from moisture and heat. What happens if I miss a dose? Since aspirin is used when needed, you may not be on a dosing schedule. Skip any missed dose if it's almost time for your next dose. Do not use two doses at one time. What happens if I overdose? Seek emergency medical attention or call the Poison Help line at . Overdose symptoms may include temporary hearing loss, seizure (convulsions), or coma. What should I avoid while taking aspirin? Avoid alcohol. Heavy drinking can increase your risk of stomach bleeding. If you are taking aspirin to prevent heart attack or stroke, avoid also taking ibuprofen (Advil, Motrin). Ibuprofen may make aspirin less effective. If you must use both medications, take the ibuprofen at least 8 hours before or 30 minutes after you take the aspirin (non-enteric coated form). Ask a doctor or pharmacist before using other medicines for pain, fever, swelling, or cold/flu symptoms. They may contain ingredients similar to aspirin (such as magnesium salicylate, ibuprofen, ketoprofen, or naproxen). What are the possible side effects of aspirin? Get emergency medical help if you have signs of an allergic reaction: hives; difficult breathing; swelling of your face, lips, tongue, or throat. Stop using aspirin and call your doctor at once if you have: ? ringing in your ears, confusion, hallucinations, rapid breathing, seizure (convulsions); ?? severe nausea, vomiting, or stomach pain; ?? bloody or tarry stools, coughing up blood or vomit that looks like coffee grounds; ?? fever lasting longer than 3 days; or ?? swelling, or pain lasting longer than 10 days. Common side effects may include: ? upset stomach, heartburn; ?? drowsiness; or ?? mild headache. This is not a complete list of side effects and others may occur. Call your doctor for medical advice about side effects. You may report side effects to FDA at 9-003-UHC-9800. What other drugs will affect aspirin? Ask your doctor before using aspirin if you take an antidepressant. Taking certain antidepressants with aspirin may cause you to bruise or bleed easily. Ask a doctor or pharmacist before using aspirin with any other medications, especially: ? a blood thinner (warfarin, Coumadin, Jantoven), or other medication used to prevent blood clots; or ?? other salicylates such as Nuprin Backache Caplet, Kaopectate, KneeRelief, Pamprin Cramp Formula, Pepto-Bismol, Tricosal, Trilisate, and others. This list is not complete. Other drugs may affect aspirin, including prescription and jmca-pry-otohvup medicines, vitamins, and herbal products. Not all possible drug interactions are listed here. Where can I get more information? Your pharmacist can provide more information about aspirin. Remember, keep this and all other medicines out of the reach of children, never share your medicines with others, and use this medication only for the indication prescribed. Every effort has been made to ensure that the information provided by [employer] is accurate, up-to-date, and complete, but no guarantee is made to that effect. Drug information contained herein may be time sensitive. [employer] information has been compiled for use by healthcare practitioners and consumers in the [place] and therefore [employer] does not warrant that uses outside of the [place] are appropriate, unless specifically indicated otherwise. [employer] drug information does not endorse drugs, diagnose patients or recommend therapy. [employer] drug information is an informational resource designed to assist licensed healthcare practitioners in caring for their patients and/or to serve consumers viewing this service as a supplement to, and not a substitute for, the expertise, skill, knowledge and judgment of healthcare practitioners. The absence of a warning for a given drug or drug combination in no way should be construed to indicate that the drug or drug combination is safe, effective or appropriate for any given patient. [employer] does not assume any responsibility for any aspect of healthcare administered with the aid of information [employer] provides. The information contained herein is not intended to cover all possible uses, directions, precautions, warnings, drug interactions, allergic reactions, or adverse effects. If you have questions about the drugs you are taking, check with your doctor, nurse or pharmacist. Copyright 4895-6593 [employer]. Version: 15.. Revision Date: 08/26/2017.polyethylene glycol 3350 (arabella ee ETH il een GLYE kol) ClearLax, GaviLAX, Gialax, GlycoLax, MiraLax, [id number], [employer] ClearLax What is the most important information I should know about polyethylene glycol 3350? You should not use this medicine if you have a bowel obstruction or intestinal blockage. If you have any of these conditions, you could have dangerous or life-threatening side effects from polyethylene glycol 3350. Do not use polyethylene glycol 3350 more than once per day. Call your doctor if you are still constipated or irregular after using this medication for 7 days in a row. What is polyethylene glycol 3350? Polyethylene glycol 3350 is a laxative solution that increases the amount of water in the intestinal tract to stimulate bowel movements. Polyethylene glycol 3350 is used as a laxative to treat occasional constipation or irregular bowel movements. Polyethylene glycol 3350 may also be used for purposes not listed in this medication guide. What should I discuss with my healthcare provider before taking polyethylene glycol 3350? You should not use this medicine if you are allergic to polyethylene glycol, or if you have a bowel obstruction or intestinal blockage. If you have any of these conditions, you could have dangerous or life-threatening side effects from polyethylene glycol 3350. People with eating disorders (such as anorexia or bulimia) should not use this medication without the advice of a doctor. To make sure this medicine is safe for you, tell your doctor if you have: ? nausea, vomiting, or severe stomach pain; ?? ulcerative colitis; ?? irritable bowel syndrome; ?? kidney disease; or ?? if you have had a sudden change in bowel habits that has lasted 2 weeks or longer. FDA category C. It is not known whether polyethylene glycol 3350 will harm an unborn baby. Tell your doctor if you are or plan to become while using this medication. It is not known whether polyethylene glycol 3350 passes into breast milk or if it could harm a nursing baby. Tell your doctor if you are breast-feeding a baby. How should I take polyethylene glycol 3350? Follow all directions on your prescription label. Do not use this medicine in larger or smaller amounts or for longer than recommended. To use the powder form of this medicine, measure your dose with the medicine cap on the bottle. This cap should contain dose jimenez on the inside of it. Pour the powder into 4 to 8 ounces of a cold or hot beverage such as water, juice, soda, coffee, or tea. Stir this mixture and drink it right away. Do not save for later use. Polyethylene glycol 3350 should produce a bowel movement within 1 to 3 days of using the medication. Polyethylene glycol 3350 normally causes loose or even watery stools. Do not use polyethylene glycol 3350 more than once per day. Call your doctor if you are still constipated or irregular after using this medication for 7 days in a row. Store at room temperature away from moisture and heat. What happens if I miss a dose? Take the missed dose as soon as you remember. Skip the missed dose if it is almost time for your next scheduled dose. Do not take extra medicine to make up the missed dose. What happens if I overdose? Seek emergency medical attention or call the Poison Help line at . What should I avoid while taking polyethylene glycol 3350? Follow your doctor's instructions about any restrictions on food, beverages, or activity. What are the possible side effects of polyethylene glycol 3350? Get emergency medical help if you have signs of an allergic reaction: hives; difficult breathing; swelling of your face, lips, tongue, or throat. Stop taking this medicine and call your doctor at once if you have: ? severe or bloody diarrhea; ?? rectal bleeding; ?? blood in your stools; or ?? severe and worsening stomach pain. Common side effects may include: ? bloating, gas, upset stomach; ?? dizziness; or ?? increased sweating. This is not a complete list of side effects and others may occur. Call your doctor for medical advice about side effects. You may report side effects to FDA at 7-297-BQZ-1703. What other drugs will affect polyethylene glycol 3350? Other drugs may interact with polyethylene glycol 3350, including prescription and oebm-geg-udrrrcl medicines, vitamins, and herbal products. Tell each of your health care providers about all medicines you use now and any medicine you start or stop using. Where can I get more information? Your pharmacist can provide more information about polyethylene glycol 3350. Remember, keep this and all other medicines out of the reach of children, never share your medicines with others, and use this medication only for the indication prescribed. Every effort has been made to ensure that the information provided by [employer] is accurate, up-to-date, and complete, but no guarantee is made to that effect. Drug information contained herein may be time sensitive. [employer] information has been compiled for use by healthcare practitioners and consumers in the [place] and therefore [employer] does not warrant that uses outside of the [place] are appropriate, unless specifically indicated otherwise. [employer]'s drug information does not endorse drugs, diagnose patients or recommend therapy. [employer] drug information is an informational resource designed to assist licensed healthcare practitioners in caring for their patients and/or to serve consumers viewing this service as a supplement to, and not a substitute for, the expertise, skill, knowledge and judgment of healthcare practitioners. The absence of a warning for a given drug or drug combination in no way should be construed to indicate that the drug or drug combination is safe, effective or appropriate for any given patient. [employer] does not assume any responsibility for any aspect of healthcare administered with the aid of information [employer] provides. The information contained herein is not intended to cover all possible uses, directions, precautions, warnings, drug interactions, allergic reactions, or adverse effects. If you have questions about the drugs you are taking, check with your doctor, nurse or pharmacist. Copyright 3220-2911 [employer]. Version: 2.04. Revision Date: 08/29/2016.atorvastatin (a TOR va sta tin) Lipitor What is the most important information I should know about atorvastatin? You should not take atorvastatin if you are or breast-feeding, or if you have liver disease. Stop taking this medication and tell your doctor right away if you become . Tell your doctor about all your current medicines and any you start or stop using. Many drugs can interact, and some drugs should not be used together. Atorvastatin can cause the breakdown of muscle tissue, which can lead to kidney failure. Call your doctor right away if you have unexplained muscle pain, tenderness, or weakness especially if you also have fever, unusual tiredness, or dark urine. What is atorvastatin? Atorvastatin is in a group of drugs called HMG CoA reductase inhibitors, or 'statins.' Atorvastatin reduces levels of 'bad' cholesterol (low-density lipoprotein, or LDL) and triglycerides in the blood, while increasing levels of 'good' cholesterol (high-density lipoprotein, or HDL). Atorvastatin is used to treat high cholesterol, and to lower the risk of stroke, heart attack, or other heart complications in people with type 2 diabetes, coronary heart disease, or other risk factors. Atorvastatin is used in adults and children who are at least 10 years old. Atorvastatin may also be used for purposes not listed in this medication guide. What should I discuss with my healthcare provider before taking atorvastatin? You should not use atorvastatin if you are allergic to it, or if you have: ? liver disease; or ?? if you are or breast-feeding. This medicine can harm an unborn baby or cause defects. Do not use if you are . Stop taking atorvastatin and tell your doctor right away if you become Use effective control to prevent while you are taking this medicine. Do not breast-feed while you are taking atorvastatin. Tell your doctor if you have ever had: ? liver problems; ?? muscle pain or weakness; ?? kidney disease; ?? diabetes; ?? a thyroid disorder; or ?? if you drink more than 2 alcoholic beverages daily. Atorvastatin can cause the breakdown of muscle tissue, which can lead to kidney failure. This happens more often in women, in older adults, or people who have kidney disease or poorly controlled hypothyroidism (underactive thyroid). Atorvastatin is not approved for use by anyone younger than 10 years old. How should I take atorvastatin? Follow all directions on your prescription label and read all medication guides or instruction sheets. Your doctor may occasionally change your dose. Use the medicine exactly as directed. Take the medicine at the same time each day, with or without food. Do not break an atorvastatin tablet before taking it. You may need to stop using atorvastatin for a short time if you have: ? uncontrolled seizures; ?? an electrolyte imbalance (such as high or low potassium levels in your blood); ?? severely low blood pressure; ?? a severe infection or illness; or ?? surgery or a medical emergency. It may take up to 2 weeks before your cholesterol levels improve, and you may need frequent blood tests. Even if you have no symptoms, tests can help your doctor determine if this medicine is effective. Atorvastatin is only part of a complete treatment program that may also include diet, exercise, and weight control. Follow your doctor's instructions very closely. Store at room temperature away from moisture, heat, and light. What happens if I miss a dose? Use the medicine as soon as you can, but skip the missed dose if you are more than 12 hours late for the dose. Do not use two doses at one time. What happens if I overdose? Seek emergency medical attention or call the Poison Help line at . What should I avoid while taking atorvastatin? Avoid eating foods high in fat or cholesterol, or atorvastatin will not be as effective. Avoid drinking alcohol. It can raise triglyceride levels and may increase your risk of liver damage. Grapefruit may interact with atorvastatin and lead to unwanted side effects. Avoid drinking more than 1 liter of grapefruit juice while taking atorvastatin. What are the possible side effects of atorvastatin? Get emergency medical help if you have signs of an allergic reaction: hives; difficulty breathing; swelling of your face, lips, tongue, or throat. In rare cases, atorvastatin can cause a condition that results in the breakdown of skeletal muscle tissue, leading to kidney failure. Call your doctor right away if you have unexplained muscle pain, tenderness, or weakness especially if you also have fever, unusual tiredness, and dark colored urine. Also call your doctor at once if you have: ? pain or burning when you urinate; ?? liver problems--upper stomach pain, weakness, tired feeling, loss of appetite, dark urine, jaundice (yellowing of the skin or eyes); or ?? kidney problems--little or no urinating, swelling in your feet or ankles, feeling tired or short of breath. Common side effects may include: ? joint pain; ?? stuffy nose, sore throat; ?? diarrhea; or ?? pain in your arms or legs. This is not a complete list of side effects and others may occur. Call your doctor for medical advice about side effects. You may report side effects to FDA at 2-513-TOW-7665. What other drugs will affect atorvastatin? Certain other drugs can increase your risk of serious muscle problems, and it is very important that your doctor knows if you are using any of them. Tell your doctor about all your current medicines and any you start or stop using, especially: ? antibiotic or antifungal medicine; ?? control pills; ?? other cholesterol-lowering medication; ?? heart medication; or ?? medicine to treat HIV or AIDS. This list is not complete. Other drugs may affect atorvastatin, including prescription and oqrh-nms-xxbrtvx medicines, vitamins, and herbal products. Not all possible drug interactions are listed here. Where can I get more information? Your pharmacist can provide more information about atorvastatin. Remember, keep this and all other medicines out of the reach of children, never share your medicines with others, and use this medication only for the indication prescribed. Every effort has been made to ensure that the information provided by [employer]') is accurate, up-to-date, and complete, but no guarantee is made to that effect. Drug information contained herein may be time sensitive. [employer] information has been compiled for use by healthcare practitioners and consumers in the [place] and therefore [employer] does not warrant that uses outside of the [place] are appropriate, unless specifically indicated otherwise. [employer] drug information does not endorse drugs, diagnose patients or recommend therapy. [employer] drug information is an informational resource designed to assist licensed healthcare practitioners in caring for their patients and/or to serve consumers viewing this service as a supplement to, and not a substitute for, the expertise, skill, knowledge and judgment of healthcare practitioners. The absence of a warning for a given drug or drug combination in no way should be construed to indicate that the drug or drug combination is safe, effective or appropriate for any given patient. [facility] does not assume any responsibility for any aspect of healthcare administered with the aid of information [facility] provides. The information contained herein is not intended to cover all possible uses, directions, precautions, warnings, drug interactions, allergic reactions, or adverse effects. If you have questions about the drugs you are taking, check with your doctor, nurse or pharmacist. Copyright 7365-2226 [facility] [employer]. Version: .. Revision Date: 01/09/2018.lisinopril (lyse [place] pril) Prinivil, Qbrelis, Zestril What is the most important information I should know about lisinopril? Do not use if you are , and tell your doctor right away if you become . If you have diabetes, do not use lisinopril together with any medication that contains aliskiren (a blood pressure medicine). Do not take lisinopril within 36 hours before or after taking medicine that contains sacubitril (such as Entresto). What is lisinopril? Lisinopril is an LEROY inhibitor that is used to treat high blood pressure (hypertension) in adults and children who are at least 6 years old. Lisinopril is also used to treat congestive heart failure in adults, or to improve survival after a heart attack. Lisinopril may also be used for purposes not listed in this medication guide. What should I discuss with my healthcare provider before taking lisinopril? You should not use lisinopril if you are allergic to it, or if you: ? have a history of angioedema; ?? recently took a heart medicine called sacubitril; or ?? are allergic to any other LEROY inhibitor, such as benazepril, captopril, enalapril, fosinopril, moexipril, perindopril, quinapril, ramipril, or trandolapril. Do not take lisinopril within 36 hours before or after taking medicine that contains sacubitril (such as Entresto). If you have diabetes, do not use lisinopril together with any medication that contains aliskiren (a blood pressure medicine). You may also need to avoid taking lisinopril with aliskiren if you have kidney disease. You should not use lisinopril if you have hereditary angioedema. Tell your doctor if you have ever had: ? kidney disease (or if you are on dialysis); ?? liver disease; or ?? high levels of potassium in your blood. Do not use if you are , and tell your doctor right away if you become . Lisinopril can cause injury or to the unborn baby if you take the medicine during your second or third trimester. You should not breast-feed while using this medicine. How should I take lisinopril? Follow all directions on your prescription label and read all medication guides or instruction sheets. Your doctor may occasionally change your dose. Use the medicine exactly as directed. Drink plenty of water each day while you are taking this medicine. Lisinopril can be taken with or without food. Measure liquid medicine carefully. Use the dosing syringe provided, or use a medicine dose-measuring device (not a kitchen spoon). Your blood pressure will need to be checked often. Your kidney function and electrolytes may also need to be checked. Call your doctor if you are sick with vomiting or diarrhea, or if you are sweating more than usual. You can easily become dehydrated while taking lisinopril. This can lead to very low blood pressure, a serious electrolyte imbalance, or kidney failure. If you need surgery, tell the surgeon ahead of time that you are using lisinopril. If you have high blood pressure, keep using this medicine even if you feel well. High blood pressure often has no symptoms. You may need to use blood pressure medicine for the rest of your life. Store at room temperature away from moisture and heat. Do not freeze the oral liquid. What happens if I miss a dose? Take the medicine as soon as you can, but skip the missed dose if it is almost time for your next dose. Do not take two doses at one time. What happens if I overdose? Seek emergency medical attention or call the Poison Help line at . What should I avoid while taking lisinopril? Drinking alcohol can further lower your blood pressure and may increase certain side effects of lisinopril. Avoid becoming overheated or dehydrated during exercise, in hot weather, or by not drinking enough fluids. Lisinopril can decrease sweating and you may be more prone to heat stroke. Do not use potassium supplements or salt substitutes, unless your doctor has told you to. Avoid getting up too fast from a sitting or lying position, or you may feel dizzy. What are the possible side effects of lisinopril? Get emergency medical help if you have signs of an allergic reaction: hives; severe stomach pain; difficulty breathing; swelling of your face, lips, tongue, or throat. You may be more likely to have an allergic reaction if you are -Malaysian. Call your doctor at once if you have: ? a light-headed feeling, like you might pass out; ?? little or no urination; ?? fever, sore throat; ?? high potassium--nausea, weakness, tingly feeling, chest pain, irregular heartbeats, loss of movement; ?? kidney problems--little or no urination, swelling in your feet or ankles, feeling tired or short of breath; or ?? liver problems--nausea, upper stomach pain, itching, tired feeling, loss of appetite, dark urine, josafat-colored stools, jaundice (yellowing of the skin or eyes). Common side effects may include: ? headache, dizziness; ?? cough; or ?? chest pain. This is not a complete list of side effects and others may occur. Call your doctor for medical advice about side effects. You may report side effects to FDA at 6-134-EYN-7968. What other drugs will affect lisinopril? Tell your doctor about all your other medicines, especially: ? a diuretic or 'water pill'; ?? lithium; ?? gold injections to treat arthritis; ?? insulin or oral diabetes medicine; ?? a potassium supplement; ?? medicine to prevent organ transplant rejection--everolimus, sirolimus, tacrolimus, temsirolimus; or ?? NSAIDs (nonsteroidal anti-inflammatory drugs)--aspirin, ibuprofen (Advil, Motrin), naproxen (Aleve), celecoxib, diclofenac, indomethacin, meloxicam, and others. This list is not complete. Other drugs may affect lisinopril, including prescription and tcgw-cuh-wcmiyyo medicines, vitamins, and herbal products. Not all possible drug interactions are listed here. Where can I get more information? documented in this encounter Plan of Treatment Not on file documented as of this encounter Visit Diagnoses Not on filedocumented in this encounter
--- OUTSIDE RECORDS SUMMARY | 2024-11-24 18:02 | XMS_ITS | Encounter Summary ---
Author Organization [employer] ([place], [place], [place], [place]) Address [address] [place] [address] Care Team Providers Care Canal Equipment Mechanic Name Role Phone Unavailable Primary Care Provider Unavailabl e Encounter Details Date Type Department Care Team (Late st Contact Info) Description 12/01/2018 Transcribed Document [facility] [place] Family Medicine [facility] [place] [address] ProviderBrianne MD [facility] [place] [id number] Social History Tobacco Use Types Packs/Day Years Used Date Smoking Tobacco: Never Assessed Sex and Gender Information Value Date Recorded Sex Assigned at Male 11/21/2021 1:59 PM CDT Legal Sex Male 1:59 PM CDT Gender Identity Male 11/21/2021 1:59 PM CDT Sexual Orientation Not on file documented as of this encounter Miscellaneous Notes * [employer]ner Conversion Note - Brianne Kim MD - 12/01/2018 2:25 AM CDT ED Discharge Entered On: 12/01/2018 2:26 EDT Performed On: 12/01/2018 2:25 EDT by Mary Rachel Rn Discharge Process Patient Disposition : Admit/Observe Personal Belongings With Patient : Yes Patient Education Completed : Yes Teaching Evaluation : Verbalizes understanding IV Discontinued : No Nursing Documentation Completed : Yes Mary Rachel Rn - 12/01/2018 2:25 EDT Admission, ED Nurse Report Accepted By : Poppy DEMARCO 5A Nurse Report Acceptance Time : 12/01/2018 9:30 EDT `Nurse Report (Hand Off) : Called Accompanied By, Discharge : Daughter Fluids/Drips Continued on Admission : No Provider Notified Time : 11/30/2018 22:00 EDT Mode Of Departure : Stretcher Mary Rachel Rn - 12/01/2018 2:25 EDT documented in this encounter Plan of Treatment Not on file documented as of this encounter Visit Diagnoses Not on filedocumented in this encounter
--- OUTSIDE RECORDS SUMMARY | 2024-11-24 18:02 | XMS_ITS | Encounter Summary ---
Author Organization [employer] ([place], [place], [place], [place]) Address [address] [place] [address] Care Team Providers Care Manager Speech Name Role Phone Unavailable Primary Care Provider Unavailabl e Encounter Details Date Type Department Care Team (Late st Contact Info) Description 12/03/2018 Transcribed Document [facility] [place] [facility] [place] [address] ProviderBrianne MD [address], [place] [id number] Social History Tobacco Use Types Packs/Day Years Used Date Smoking Tobacco: Never Assessed Sex and Gender Information Value Date Recorded Sex Assigned at Male 11/21/2021 1:59 PM CDT Legal Sex Male 1:59 PM CDT Gender Identity Male 11/21/2021 1:59 PM CDT Sexual Orientation Not on file documented as of this encounter Miscellaneous Notes * Cerner Conversion Note - Brianne Kim MD - 12/03/2018 2:04 PM CDT Stroke/Warfarin Instructions Entered On: 12/03/2018 14:05 EDT Performed On: 12/03/2018 14:04 EDT by Zuleyka Smith RN Stroke/Warfarin Instructions Stroke/TIA Discharge Ins : Open Warfarin Discharge Ins : N/A Zuleyka Smith RN - 12/03/2018 14:04 EDT Stroke/TIA Discharge Instructions Individualized Stroke Risk Factors *Q : Diabetes, Heart disease, Hypertension/High blood pressure, Peripheral vascular disease Stroke Education Handouts Given *Q : Yes Zuleyka Smith RN - 12/03/2018 14:04 EDT Stroke Education Materials Given-Grid Activation of EMS *Q : Verbalizes understanding Follow-up Care After Discharge *Q : Verbalizes understanding Medications prescribed at DC *Q : Verbalizes understanding Risk Factors for Stroke *Q : Verbalizes understanding Warning S&S of Stroke *Q : Verbalizes understanding Zuleyka Smith RN - 12/03/2018 14:04 EDT Stroke/TIA Signs/Symptoms to Report Immediately : Sudden onset difficulty speaking, Sudden onset difficulty understanding speech, Sudden onset change in vision, Sudden onset weakness particulary on one side of the body, Sudden onset numbness/tingling, Sudden severe headache, Sudden dizziness or trouble with gait, Call 01-25-1: EMS activation is crucial My LDL Level: : LDL Level Cholesterol LDL Calculation: 69.8 mg/dL (12/02/18 05:59:00) Zuleyka Smith RN - 12/03/2018 14:04 EDT Electronically signed by Victor Manuel Alcala Conversion Mechanical Equipment Sales Engineer Cerner at 09/13/2022 4:22 PM CDT documented in this encounter Plan of Treatment Not on file documented as of this encounter Visit Diagnoses Not on filedocumented in this encounter
--- OUTSIDE RECORDS SUMMARY | 2024-11-24 18:02 | XMS_ITS | Encounter Summary ---
Author Organization [employer] ([place], [place], [place], [place]) Address [address] [place] [address] Care Team Providers Care Occupational Therapist Rehab Manager Name Role Phone Unavailable Primary Care Provider Unavailabl e Encounter Details Date Type Department Care Team (Late st Contact Info) Description 12/02/2018 Transcribed Document [facility] [place] [facility] [place] [address] ProviderBrianne MD [address], [place] [id number] Social History Tobacco Use Types Packs/Day Years Used Date Smoking Tobacco: Never Assessed Sex and Gender Information Value Date Recorded Sex Assigned at Male 11/21/2021 1:59 PM CDT Legal Sex Male 1:59 PM CDT Gender Identity Male 11/21/2021 1:59 PM CDT Sexual Orientation Not on file documented as of this encounter Miscellaneous Notes * Cerner Conversion Note - Historical ProviderMD - 12/02/2018 11:50 AM CDT UM Authorization Entered On: 12/02/2018 11:50 EDT Performed On: 12/02/2018 11:50 EDT by ROLLY LAY Rn-Utilization Review Primary Insurance Authorization Authorization and Policy Numbers : Insurance 1 Health Plan: MEDICARE Policy Number: [id number] Authorization Number: Insurance 2 Health Plan: AARP N Policy Number: [id number] Authorization Number: Insurance Primary Name : MEDICARE Authorized Service Begin Date-Primary : 11/30/2018 EDT Historical Authorization Comments-Primary : No Authorization Comments Found ROLLY LAY Rn-Utilization Review - 12/02/2018 11:50 EDT Electronically signed by Victor Manuel Alcala Conversion Clinical Account Specialist Cerner at 09/13/2022 4:27 PM CDT documented in this encounter Plan of Treatment Not on file documented as of this encounter Visit Diagnoses Not on filedocumented in this encounter
--- OUTSIDE RECORDS SUMMARY | 2024-11-24 18:02 | XMS_ITS | Encounter Summary ---
Author Organization [employer] ([place], [place], [place], [place]) Address [address] [place] [address] Care Team Providers Care Sonogram Technician Name Role Phone Unavailable Primary Care Provider Unavailabl e Encounter Details Date Type Department Care Team (Late st Contact Info) Description 12/02/2018 Transcribed Document [facility] [place] Family Medicine [address] [place] [address] ProviderBrianne MD [address] [place] [address] Social History Tobacco Use Types [...] Conversion Note - Brianne Kim MD - 12/02/2018 4:27 PM CDT Patient: NADER TOLENTINO Age: 78 Years Sex: Male : 1940 Subjective Daughter is in the room and tells me that patient has not had any more episodes of confusion or apraxia. Review of Systems Cardiac - patient denies any chest pain. Objective Vitals & Measurements T: 36.7 ??C HR: 57 BP: 184/82 BP: 121/75(Sitting) BP: 130/71(Standing) BP: 128/49(Supine) SpO2: 95% Physical Exam Speech - fluent EOMI Alert and oriented to person, place and date. TESTS Cranial MRI - normal Cholesterol - 148 LDL - 69 Assessment/Plan Nader Tolentino is a 78-year-old male with multiple stroke risk factors including transient ischemic attacks in the past, diabetes, hypertension and who is four days status post a left carotid artery stent placement for carotid artery stenosis in the setting of a previous history of left neck radiation. The patient was discharged from our hospital on November 30 three days after undergoing a left carotid stent placement, but was readmitted the same evening when his family noticed that he was confused and sounds as if he was having some apraxia at home. It sounds as if he was hypotensive at home. I suspect the most likely cause of his transient encephalopathy and apraxia is a TIA related to low blood pressure. RECOMMENDATIONS: I am also going to recommend the followin. I agree with subcu heparin for DVT prevention. 2. At discharge, he should follow up with his outpatient neurologist and be instructed not to drive until released by a physician. 3. Use the stroke order sets. 4. I agree with antiplatelet agents. 5. Heart monitor and if this showed atrial fibrillation, to consider anticoagulating the patient. 6. Try to avoid hypotension if possible. Medications Inpatient aspirin, 81 mg= 1 Tab, Oral, Daily clopidogrel, 75 mg= 1 Tab, Oral, At Bedtime DuoNeb 0.5 mg-2.5 mg/3 mL inhalation solution, 3 mL, Nebulized Inhalation , RT_Q6H, PRN Fish Oil, 1000 mg= 1 Cap, Oral, Daily glimepiride, 4 mg= 1 Tab, Oral, With Breakfast heparin, 5000 Units= 1 mL, SubCutaneous, Q8H hydrALAZINE, 10 mg= 0.5 mL, IV Push, Q6H, PRN insulin lispro sliding scale, Scale A:, SubCutaneous, AC and at Bedtime levothyroxine, 88 mcg= 1 Tab, Oral, Daily Lipitor, 20 mg= 1 Tab, Oral, At Bedtime lisinopril, 5 mg= 1 Tab, Oral, BID metoprolol tartrate, 25 mg= 1 Tab, Oral, BID Milk of Magnesia 8% oral suspension, 30 mL, Oral, Daily, PRN MiraLax, 17 Gram= 1 Packet, Oral, Daily, PRN Nephrocaps, 1 Tab, Oral, Daily pantoprazole, 40 mg= 1 Tab, Oral, Daily Sodium Chloride 0.9% intravenous solution 1,000 mL, 1000 mL, IntraVENous Tylenol, 650 mg= 2 Tab, Oral, Q4H, PRN Vitamin B12, 1000 mcg= 1 Tab, Oral, Daily Vitamin D3, 2000 Units= 2 Tab, Oral, Daily Zofran, 4 mg= 2 mL, IV Push, Q4H, PRN documented in this encounter Plan of Treatment Not on file documented as of this encounter Visit Diagnoses Not on filedocumented in this encounter
--- OUTSIDE RECORDS SUMMARY | 2024-11-24 18:02 | XMS_ITS | Encounter Summary ---
Author Organization [employer] ([place], [place], [place], [place]) Address [address] [place] [address] Care Team Providers Care Lime Hide Inspector Name Role Phone Unavailable Primary Care Provider Unavailabl e Encounter Details Date Type Department Care Team (Late st Contact Info) Description 12/02/2018 Transcribed Document [facility] [place] [facility] [place] [address] ProviderBrianne MD [address], [place] [id number] Social History Tobacco Use Types Packs/Day Years Used Date Smoking Tobacco: Never Assessed Sex and Gender Information Value Date Recorded Sex Assigned at Male 11/21/2021 1:59 PM CDT Legal Sex Male 1:59 PM CDT Gender Identity Male 11/21/2021 1:59 PM CDT Sexual Orientation Not on file documented as of this encounter Miscellaneous Notes * Cerner Conversion Note - Brianne Kim MD - 12/02/2018 12:36 PM CDT Post Visit Phone Call Entered On: 12/02/2018 12:37 EDT Performed On: 12/02/2018 12:36 EDT by AIDAN RAO RN Post Visit Phone Call Emergency Room Visit Since DC : Yes Reason for Emergency Room Visit : altered mental status ?TIA Date of Emergency Room Visit : 12/01/18, admitted to [facility] AIDAN RAO RN - 12/02/2018 12:36 EDT Electronically signed by Cari [facility] Conversion Risk Control Analyst [employer]ner at 09/14/2022 12:16 PM CDT documented in this encounter Plan of Treatment Not on file documented as of this encounter Visit Diagnoses Not on filedocumented in this encounter
--- OUTSIDE RECORDS SUMMARY | 2024-11-24 18:02 | XMS_ITS | Encounter Summary ---
Author Organization [employer] ([place], [place], [place], [place]) Address [address] [place] [address] Care Team Providers Care Special Education Associate Name Role Phone Unavailable Primary Care Provider Unavailabl e Encounter Details Date Type Department Care Team (Late st Contact Info) Description 12/02/2018 Transcribed Document [facility] Cardiology [address] [place], [place] [id number] [place] [address] [place] [address] [address] [place] [address] Social History Tobacco Use Types Packs/Day Years Used Date Smoking Tobacco: Never Assessed Sex and Gender Information Value Date Recorded Sex Assigned at Male 11/21/2021 1:59 PM CDT Legal Sex Male 1:59 PM CDT Gender Identity Male 11/21/2021 1:59 PM CDT Sexual Orientation Not on file documented as of this encounter Miscellaneous Notes * Cerner Conversion Note - Max Shah MD - 12/02/2018 7:00 AM EDT Patient: NADER TOLENTINO Age: 78 years Sex: Male : 1940 Associated Diagnoses: None Author: MAX SHAH MD-CAR BASIC: Cardiology: None Subjective up walking in room, no chest pain Health Status Current medications: (Selected) Inpatient Medications Ordered DuoNeb [...] mg, Oral, BID pantoprazole: 40 mg, Oral, Daily, Home Medications (14) Active aspirin 81 mg [...] Int Units = 1 Tab, Oral, Daily Problem list: Active Problems (21) Arthritis At risk for [...] urinary sphincter Urinary catheter complication////DO NOT CATH///URINARY Objective VS/Measurements Vitals Signs (last 24 hrs) Last Charted Minimum Maximum Temp 98 (DEC 01 18:30) 98 (DEC 01 18:30) 99.0 (DEC 01 06:37) Mon HR 56 (DEC 02 04:21) 56 (DEC 02 04:21) 64 (DEC 01 15:15) Resp Rate 16 (DEC 01 06:37) 16 (DEC 01 06:37) 16 (DEC 01 06:37) SBP 122 (DEC 02 04:21) 93 (DEC 01 18:00) H 179 (DEC 01 10:45) DBP L 46 (DEC 02 04:21) L 46 (DEC 02 04:21) 82 (DEC 01 10:45) MAP 81 (DEC 02 04:21) 66 (DEC 02 01:00) 137 (DEC 01 16:00) SpO2 96 (DEC 01 15:15) 96 (DEC 01 11:15) 96 (DEC 01 11:15) General: Alert and oriented, No acute distress. Eye: Pupils are equal, round and reactive to light, Normal conjunctiva. HENT: Normocephalic. Neck: Supple, No carotid bruit, No jugular venous distention. Respiratory: Lungs are clear to auscultation, Respirations are non-labored, Breath sounds are equal, Symmetrical chest wall expansion. Cardiovascular: Normal rate, Regular rhythm, No murmur, Good pulses equal in all extremities. Gastrointestinal: Soft, Non-distended, Normal bowel sounds. Musculoskeletal: Normal range of motion, Normal strength. Integumentary: Warm, Dry, [place]. Neurologic: Alert, Oriented. Psychiatric: Cooperative, Appropriate mood & affect. Results Review Telemetry Admission Weight Todays Weight DEC 01 07:22 145 H 115 H 24 / 102 4.1 25 1.20 \ DEC 01 07:22 \ L 11.8 / 6.0 L 143 / L 35.2 \ Cardiac Markers (Current Encounter/Past 24 Hours) No Cardiac Marker Results Found (Past 24 Hours) Radiology Results (Last 48 hours) [id number] -- 11/30/2018 19:19 CR Chest 1 Vw [...] majorbranches are also within normal limits.IMPRESSION: Unremarkable. TTE 12/02/18 Impression: Normal sized left ventricle. Normal left ventricular wall thickness. Visually estimated ejection fraction 55% +/- 5%. Normal left ventricular systolic function with normal systolic strain pattern. Normal left ventricular diastolic function. No hemodynamically significant valvular heart disease. No masses or thrombi are seen. Impression and Plan IMPRESSION: Labile HTN- no prior cardiac w/u LVEF 55%, normal diastolic fx, valves ok Carotid stenosis- s/p Left carotid stent with distal embolic filter 11/28/18 - Dr. Surekha WILLIS HLD DM PLAN; 12/02/18 Current CV rx appropriate, BP better controlled Add low dose Amlodipine if needed for sustained hypertension Follow up with his PCP closely after dc for further HTN management Will sign off today 12/01/18 Recommend switching Coreg to Metoprolol for less [...]
--- OUTSIDE RECORDS SUMMARY | 2024-11-24 18:02 | XMS_ITS | Encounter Summary ---
Author Organization [employer] ([place], [place], [place], [place]) Address [address] [place] [address] Care Team Providers Care Spiral Weaver Name Role Phone Unavailable Primary Care Provider Unavailabl e Encounter Details Date Type Department Care Team (Late st Contact Info) Description 12/02/2018 Transcribed Document [facility] [place] [facility] [place] [address] ProviderBrianne MD [address], [place] [id number] Social History Tobacco Use Types Packs/Day Years Used Date Smoking Tobacco: Never Assessed Sex and Gender Information Value Date Recorded Sex Assigned at Male 11/21/2021 1:59 PM CDT Legal Sex Male 1:59 PM CDT Gender Identity Male 11/21/2021 1:59 PM CDT Sexual Orientation Not on file documented as of this encounter Miscellaneous Notes * Cerner Conversion Note - Historical ProviderMD - 12/02/2018 9:40 AM CDT Attempt to Treat, OT Entered On: 12/02/2018 9:41 EDT Performed On: 12/02/2018 9:40 EDT by MORGAN ROSENBAUM OTR/Jaron Attempt to Treat Inability to Treat Comment : Evaluated already 12/01/2018, not new Notification : RN-MORGAN Chilel OTR/Jaron - 12/02/2018 9:41 EDT Unable to Treat Due To : Other: on tx list, evaled yesterday MORGAN ROSENBAUM OTR/Jaron - 12/02/2018 9:40 EDT documented in this encounter Plan of Treatment Not on file documented as of this encounter Visit Diagnoses Not on filedocumented in this encounter
--- OUTSIDE RECORDS SUMMARY | 2024-11-24 18:02 | XMS_ITS | Encounter Summary ---
Author Organization [employer] ([place], [place], [place], [place]) Address [address] [place] [address] Care Team Providers Care Healthcare Translator Name Role Phone Unavailable Primary Care Provider Unavailabl e Encounter Details Date Type Department Care Team (Late st Contact Info) Description 12/02/2018 Transcribed Document [facility] [place] [facility] [address] ProviderBrianne MD [facility] [address], [place] [id number] Social History Tobacco Use Types Packs/Day Years Used Date Smoking Tobacco: Never Assessed Sex and Gender Information Value Date Recorded Sex Assigned at Male 11/21/2021 1:59 PM CDT Legal Sex Male 1:59 PM CDT Gender Identity Male 11/21/2021 1:59 PM CDT Sexual Orientation Not on file documented as of this encounter Miscellaneous Notes * Cerner Conversion Note - Brianne Kim MD - 12/02/2018 4:00 PM CDT Initial Discharge Planning Entered On: 12/02/2018 16:02 EDT Performed On: 12/02/2018 16:00 EDT by NARA HEBERT, RN-Central Sterile Supply Technician Initial Assessment I Previously Documented Living Environment : No qualifying data available. Living Situation : Home Patient Lives With : Alone Emergency Contact #1 : Julissa Chester Emergency Contact #1 Phone Number : [phone] Emergency Contact #1 Relationship : daughter Enter Doctors Name : Jared Ramos Does Patient have PCP Listed? : Yes Legal Guardian : Yes Is Guardianship Needed : Yes NARA HEBERT, RN-Central Sterile Supply Technician - 12/02/2018 16:00 EDT Initial Assessment II Sensory and Motor Deficits : None Current Home Treatments and Equipment : Cane, Crutches Does the Patient have a Floor to SNF Benefit? : Yes NARA HEBERT, RN-Central Sterile Supply Technician - 12/02/2018 16:00 EDT Discharge Needs I Anticipated Discharge Date : 12/03/2018 EDT Anticipated Discharge To, CM : Home independently Current Home Treatment/Equipment : Current Home Treatment/Equipment No qualifying data available. Post Acute/Home Treatments : None NARA HEBERT, RN-Central Sterile Supply Technician - 12/02/2018 16:00 EDT Discharge Needs II Professional Skilled Services : Professional Skilled Services No qualifying data available. Needs Assistance with Transportation : No Discharge Options Discussed with Patient : DME, Home Health NARA HEBERT, RN-Central Sterile Supply Technician - 12/02/2018 16:00 EDT Narrative Note Narrative Note : Pt off the floor. Met with pt's daughter. Discussed home health at discharge. Pt's daughter refuses at this time. Pt's daughter denies any discharge needs. NARA HEBERT, RN-Central Sterile Supply Technician - 12/02/2018 16:00 EDT Electronically signed by Victor Manuel Alcala Conversion Chalk Extruding Machine Operator Cerner at 09/13/2022 4:25 PM CDT documented in this encounter Plan of Treatment Not on file documented as of this encounter Visit Diagnoses Not on filedocumented in this encounter
--- OUTSIDE RECORDS SUMMARY | 2024-11-24 18:02 | XMS_ITS | Encounter Summary ---
Author Organization [employer] ([place], [place], [place], [place]) Address [address] [place] [address] Care Team Providers Care Broach Operator Name Role Phone Unavailable Primary Care Provider Unavailabl e Encounter Details Date Type Department Care Team (Late st Contact Info) Description 12/02/2018 Transcribed Document [facility] [place] [facility] [place] [address] ProviderBrianne MD [address], [place] [phone] Social History Tobacco Use Types Packs/Day Years Used Date Smoking Tobacco: Never Assessed Sex and Gender Information Value Date Recorded Sex Assigned at Male 11/21/2021 1:59 PM CDT Legal Sex Male 1:59 PM CDT Gender Identity Male 11/21/2021 1:59 PM CDT Sexual Orientation Not on file documented as of this encounter Miscellaneous Notes * Cerner Conversion Note - Brianne ProviderMD - 12/02/2018 8:26 AM CDT NIH Stroke Scale *Q Entered On: 12/02/2018 8:30 EDT Performed On: 12/02/2018 8:26 EDT by Zuleyka Smith RN NIH Stroke [...] Score : 0 Zuleyka Smith RN - 12/02/2018 8:26 EDT Electronically signed by Victor Manuel Alclaa Conversion Managed Care Specialist [employer] at 09/13/2022 4:40 PM CDT documented in this encounter Plan of Treatment Not on file documented as of this encounter Visit Diagnoses Not on filedocumented in this encounter
--- OUTSIDE RECORDS SUMMARY | 2024-11-24 18:03 | XMS_ITS ---
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 Ordering Clinician Indication Dosage Frequency Signature (SIG) Comments Components Mircera 11-19 11:29: 07 Yes [id number] Number of Repeats Allowed: Frequency: SONJA dosing, every two weeks ONS [facility] 11-10 13:24: 36 Yes [id number] Number of Repeats Allowed: Frequency: Every Dialysis Treatment Venofer 11-05 12:46: 05 Yes [id number] Number of Repeats Allowed: Frequency: One time a weekDosesO rdered: Maintenanc e Dose 50 Milligram Route: Intravenou s Normal Saline Solution 0.9% NaCl 10-24 11:33: 28 Yes [id number] Number of Repeats Allowed: Frequency: As needed clonidine hydrochlori de 09-30 17:19: 38 Yes [id number] Number of Repeats Allowed: Frequency: Every 4 hours as needed Normal Saline Solution 0.9% NaCl 06-24 20:35: 21 Yes [id number] Number of Repeats Allowed: Frequency: Post-dialy sisDosesOr dered: Arterial Lumen 10 mL Route: Intracathe terDosesOr dered: Venous Lumen 10 mL Route: Intracathe ter Normal Saline Solution 0.9% NaCl 06-24 20:35: 04 Yes [id number] Number of Repeats Allowed: Frequency: Pre-dialys isDosesOrd ered: Arterial Lumen 10 mL Route: Intracathe terDosesOr dered: Venous Lumen 10 mL Route: Intracathe ter acetaminoph en 06-24 20:27: 01 Yes [id number] Number of Repeats Allowed: Frequency: Every 4 hours as needed Oxygen 06-24 20:26: 38 Yes [id number] Number of Repeats Allowed: Frequency: As needed Problems This patient has no known problems. Procedures Procedure Date / Time Performed Performing Clinician Kathryn ce Details AV Fistula 2024-09-11 04:00:00 Access Site Upper Arm (Left) Access Use Start Date 2024-11-03 00:00:0 0 Central Venous Catheter (CVC)2024-06-02 05:00:00 Access Site Subclavian (Right) Access Use Start Date 2024-06-25 00:00:0 0 DIALYSIS TREATMENT INFORMATION Conventional Hemodialysis Date Type Treatment Start Date Treatment End Date Pre-Treatment Vitals Post-Treatment Vitals Weight Gain BFR DFR Actual UF Dialysis Access November 24, 2024 In-Ce nter Hemod ialys is Treat ment 2024-11-24 T09:47:00. 000Z 2024-11-24 T13:22:33. 000Z BP Sitting (Pre-Dialysis) 85/37 mmHg BP Sitting (Post-D ialysis ) 143/ 66 mmHg BP Standing (Pre-Dialysis) 82/47 mmHg BP Standing (P ost-Dialysis) 131/67 mmHg Sitting Heart Rate Pre-Dialysis 54 BPM Sitting Heart Rate Post-Dialysis 60 BPM Standing Heart Rate Pre-Dialysis 54 BPM Standing Heart Rate Post-Dialysis 60 BPM Temperature Pre-Dialysis 97.8 degF Temperature Post -Dialysis 97.9 degF November 21, 2024 In-Center Hemodialysis Treatment 2059-73-45Q13:44:45.000Z 5832-74-97O56:14:30.000Z BP Sitting (Pre-Dialysis) 123/57 mmHg BP Sitting (Post-Dialysis) 171/91 mmHg Concurrent Access: falseCentral Venous Catheter (CVC) Subclavian (Right) ArterialAV Fistula Upper Arm (Left) Venous Sitting Heart Rate Pre-Dialysis 60 BPM BP Standing (Post-Dialysis) 131/92 mmHg Temperature Pre-Dialysis 97.9 degF Sitting Heart Ra te Post-Dialysis 60 BPM Standing Heart Rate Post-Erika lysis 62 BPM Temperature Post-Dialysis 98 .3 degF November 17, 2024 In-Center Hemodialysis Treatment [id number]:50:51.000Z 7957-01-34B86:22:36.000Z BP Sitting (Pre-Dialysis) 91/40 mmHg BP Sitting (Post-Dialysis) 109/52 mmHg Concurrent Access: trueAV Fistula Upper Arm (Left) ArterialCentral Venous Catheter (CVC) Subclavian (Right) Venous Sitting Heart Rate Pre-Dialysis 60 BPM BP Standing (Post-Dialysis) 158/60 mmHg Temperature Pre-Dialysis 97.5 degF Sitting Heart Ra te Post-Dialysis 60 BPM Standing Heart Rate Post-Erika lysis 60 BPM Temperature Post-Dialysis 97 .9 degF November 14, 2024 In-Center Hemodialysis Treatment 2435-86-59H93:55:56.000Z 2814-10-19H35:29:01.000Z BP Sitting (Pre-Dialysis) 125/54 mmHg BP Sitting (Post-Dialysis) 123/64 mmHg Concurrent Access: falseCentral Venous Catheter (CVC) Subclavian (Right) ArterialAV Fistula Upper Arm (Left) Venous Sitting Heart Rate Pre-Dialysis 60 BPM BP Standi ng (Post-Dialysis) 110/46 mmHg Temperature Pre-Dialysis 98 degF Sitting Heart Ra te Post-Dialysis 70 BPM Standing Heart Rate Post-Erika lysis 64 BPM Temperature Post-Dialysis 98 degF November 10, 2024 In-Center Hemodialysis Treatment [id number]:45:56.000Z 6471-51-40P17:26:51.000Z BP Sitting (Pre-Dialysis) 110/47 mmHg BP Sitting (Post-Dialysis) 142/60 mmHg Concurrent Access: falseCentral Venous Catheter (CVC) Subclavian (Right) ArterialAV Fistula Upper Arm (Left) Venous BP Standing (Pre-Dialysis) 110/50 mmHg BP Standing (P ost-Dialysis) 142/66 mmHg Sitting Heart Rate Pre-Dialysis 55 BPM Sitting Heart Rate Post-Dialysis 60 BPM Standing Heart Rate Pre-Dialysis 60 BPM Standing Heart Rate Post-Dialysis 64 BPM Temperature Pre-Dialysis 97.6 degF Temperature Post -Dialysis 97 degF November 07, 2024 In-Center Hemodialysis Treatment 0856-06-19T88:03:13.000Z 1541-80-91F21:41:14.000Z BP Sitting (Pre-Dialysis) 128/60 mmHg BP Sitting (Post-Dialysis) 104/49 mmHg Concurrent Access: trueAV Fistula Upper Arm (Left) ArterialCentral Venous Catheter (CVC) Subclavian (Right) Venous Sitting Heart Rate Pre-Dialysis 60 BPM Sitting H eart Rate Post-Dialysis 60 BPM Temperature Pre-Dialysis 97.3 degF Temperature Post -Dialysis 97.3 degF November 03, 2024 In-Center Hemodialysis Treatment 0028-51-39N80:54:40.000Z 4008-91-16T79:40:57.000Z BP Sitting (Pre-Dialysis) 105/73 mmHg BP Sitting (Post-Dialysis) 124/58 mmHg Concurrent Access: trueAV Fistula Upper Arm (Left) ArterialCentral Venous Catheter (CVC) Subclavian (Right) Venous BP Standing (Pre-Dialysis) 125/59 mmHg Sitti ng Heart Rate Post-Dialysis 60 BPM Sitting Heart Rate Pre-Dialysis 62 BPM Temperatu re Post-Dialysis 97.9 degF Standing Heart Rate Pre-Dialysis 55 BPM Temperature Pre-Dialysis 97.9 degF October 31, 2024 In-Center Hemodialysis Treatment 9527-04-99D04:44:56.000Z 7924-71-67Q52:13:22.000Z BP Sitting (Pre-Dialysis) 105/54 mmHg BP Sitting (Post-Dialysis) 126/54 mmHg Concurrent Access: falseCentral Venous Catheter (CVC) Subclavian (Right) ArterialAV Fistula Upper Arm (Left) Venous BP Standing (Pre-Dialysis) 121/57 mmHg BP Standing (P ost-Dialysis) 136/58 mmHg Sitting Heart Rate Pre-Dialysis 60 BPM Sitting Heart Rate Post-Dialysis 60 BPM Standing Heart Rate Pre-Dialysis 60 BPM Standing Heart Rate Post-Dialysis 60 BPM Temperature Pre-Dialysis 97.5 degF Temperature Post -Dialysis 97.6 degF October 27, 2024 In-Center Hemodialysis Treatment 3370-80-33T06:42:20.000Z 1201-32-33T73:11:20.000Z BP Sitting (Pre-Dialysis) 121/49 mmHg BP Sitting (Post-Dialysis) 108/53 mmHg Concurrent Access: falseCentral Venous Catheter (CVC) Subclavian (Right) ArterialAV Fistula Upper Arm (Left) Venous Sitting Heart Rate Pre-Dialysis 60 BPM BP Standing (Post-Dialysis) 102/55 mmHg Temperature Pre-Dialysis 98.1 degF Sitting Heart Ra te Post-Dialysis 60 BPM Standing Heart Rate Post-Erika lysis 60 BPM Temperature Post-Dialysis 98 .1 degF October 24, 2024 In-Center Hemodialysis Treatment 1935-24-57C41:55:18.000Z 4120-49-60A51:28:39.000Z BP Sitting (Pre-Dialysis) 98/51 mmHg BP Sitting (Post-Dialysis) 131/52 mmHg Concurrent Access: falseCentral Venous Catheter (CVC) Subclavian (Right) ArterialAV Fistula Upper Arm (Left) Venous Sitting Heart Rate Pre-Dialysis 60 BPM BP Standing (Post-Dialysis) 101/42 mmHg Temperature Pre-Dialysis 98.2 degF Sitting Heart Ra te Post-Dialysis 60 BPM Standing Heart Rate Post-Erika lysis 60 BPM Temperature Post-Dialysis 98 .4 degF October 20, 2024 In-Center Hemodialysis Treatment 5008-72-37B19:53:00.000Z 3139-78-60B65:28:27.000Z BP Sitting (Pre-Dialysis) 102/51 mmHg BP Sitting (Post-Dialysis) 119/56 mmHg Concurrent Access: falseCentral Venous Catheter (CVC) Subclavian (Right) ArterialAV Fistula Upper Arm (Left) Venous BP Standing (Pre-Dialysis) 106/45 mmHg BP Standing (P ost-Dialysis) 100/50 mmHg Sitting Heart Rate Pre-Dialysis 53 BPM Sitting Heart Rate Post-Dialysis 60 BPM Standing Heart Rate Pre-Dialysis 53 BPM Standing Heart Rate Post-Dialysis 60 BPM Temperature Pre-Dialysis 97.5 degF Temperature Post -Dialysis 97.3 degF October 17, 2024 In-Center Hemodialysis Treatment 6318-91-11T24:43:22.000Z 1178-34-05S86:21:58.000Z BP Sitting (Pre-Dialysis) 95/50 mmHg BP Sitting (Post-Dialysis) 140/56 mmHg Concurrent Access: falseCentral Venous Catheter (CVC) Subclavian (Right) ArterialAV Fistula Upper Arm (Left) Venous BP Standing (Pre-Dialysis) 96/47 mmHg BP Standing (P ost-Dialysis) 118/42 mmHg Sitting Heart Rate Pre-Dialysis 54 BPM Sitting Heart Rate Post-Dialysis 60 BPM Standing Heart Rate Pre-Dialysis 60 BPM Standing Heart Rate Post-Dialysis 80 BPM Temperature Pre-Dialysis 97.5 degF Temperature Post -Dialysis 97.9 degF October 13, 2024 In-Center Hemodialysis Treatment 5956-67-16R77:49:00.000Z 2501-69-82T25:25:32.000Z BP Sitting (Pre-Dialysis) 103/53 mmHg BP Sitting (Post-Dialysis) 112/54 mmHg Concurrent Access: falseCentral Venous Catheter (CVC) Subclavian (Right) ArterialAV Fistula Upper Arm (Left) Venous BP Standing (Pre-Dialysis) 104/53 mmHg Sitti ng Heart Rate Post-Dialysis 60 BPM Sitting Heart Rate Pre-Dialysis 60 BPM Temperatu re Post-Dialysis 97.3 degF Standing Heart Rate Pre-Dialysis 60 BPM Temperature Pre-Dialysis 97.3 degF October 10, 2024 In-Center Hemodialysis Treatment 5110-28-55N05:56:59.000Z 8901-61-32P13:34:05.000Z BP Sitting (Pre-Dialysis) 154/72 mmHg BP Sitting (Post-Dialysis) 137/63 mmHg Concurrent Access: falseCentral Venous Catheter (CVC) Subclavian (Right) ArterialAV Fistula Upper Arm (Left) Venous Sitting Heart Rate Pre-Dialysis 60 BPM BP Standing (Post-Dialysis) 128/57 mmHg Temperature Pre-Dialysis 97.9 degF Sitting Heart Ra te Post-Dialysis 66 BPM Standing Heart Rate Post-Erika lysis 71 BPM Temperature Post-Dialysis 97 .7 degF October 06, 2024 In-Center Hemodialysis Treatment 8146-26-44I78:53:00.000Z 5922-35-81I86:27:06.000Z BP Sitting (Pre-Dialysis) 135/64 mmHg BP Sitting (Post-Dialysis) 115/52 mmHg Concurrent Access: falseCentral Venous Catheter (CVC) Subclavian (Right) ArterialAV Fistula Upper Arm (Left) Venous BP Standing (Pre-Dialysis) 137/95 mmHg BP Standing (P ost-Dialysis) 106/53 mmHg Sitting Heart Rate Pre-Dialysis 66 BPM Sitting Heart Rate Post-Dialysis 60 BPM Standing Heart Rate Pre-Dialysis 67 BPM Standing Heart Rate Post-Dialysis 60 BPM Temperature Pre-Dialysis 97.6 degF Temperature Post -Dialysis 97.6 degF October 03, 2024 In-Center Hemodialysis Treatment 7142-61-05W28:46:39.000Z 8837-83-02T54:17:04.000Z BP Sitting (Pre-Dialysis) 96/69 mmHg BP Sitting (Post-Dialysis) 122/65 mmHg Concurrent Access: falseCentral Venous Catheter (CVC) Subclavian (Right) ArterialAV Fistula Upper Arm (Left) Venous BP Standing (Pre-Dialysis) 100/60 mmHg BP Standing (P ost-Dialysis) 113/49 mmHg Sitting Heart Rate Pre-Dialysis 60 BPM Sitting Heart Rate Post-Dialysis 60 BPM Standing Heart Rate Pre-Dialysis 60 BPM Standing Heart Rate Post-Dialysis 56 BPM Temperature Pre-Dialysis 97.6 degF Temperature Post -Dialysis 97.5 degF September 29, 2024 In-Center Hemodialysis Treatment 4000-15-32B71:45:53.000Z 3987-51-35Z28:21:46.000Z BP Sitting (Pre-Dialysis) 101/51 mmHg BP Sitting (Post-Dialysis) 115/55 mmHg Concurrent Access: falseCentral Venous Catheter (CVC) Subclavian (Right) ArterialAV Fistula Upper Arm (Left) Venous BP Standing (Pre-Dialysis) 104/49 mmHg BP Standing (P ost-Dialysis) 102/53 mmHg Sitting Heart Rate Pre-Dialysis 60 BPM Sitting Heart Rate Post-Dialysis 60 BPM Standing Heart Rate Pre-Dialysis 60 BPM Standing Heart Rate Post-Dialysis 61 BPM Temperature Pre-Dialysis 97.4 degF Temperature Post -Dialysis 97.3 degF September 26, 2024 In-Center Hemodialysis Treatment 8705-58-57P69:43:59.000Z 0861-49-63Z60:18:30.000Z BP Sitting (Pre-Dialysis) 95/43 mmHg BP Sitting (Post-Dialysis) 97/51 mmHg Concurrent Access: falseCentral Venous Catheter (CVC) Subclavian (Right) ArterialAV Fistula Upper Arm (Left) Venous Sitting Heart Rate Pre-Dialysis 60 BPM BP Standing (Post-Dialysis) 123/57 mmHg Temperature Pre-Dialysis 97.8 degF Sitting Heart Ra te Post-Dialysis 66 BPM Standing Heart Rate Post-Erika lysis 60 BPM Temperature Post-Dialysis 97 .5 degF September 24, 2024 In-Center Hemodialysis Treatment 8918-63-04Y81:57:15.000Z 7827-66-59A83:34:31.000Z BP Sitting (Pre-Dialysis) 100/45 mmHg BP Sitting (Post-Dialysis) 119/54 mmHg Concurrent Access: falseCentral Venous Catheter (CVC) Subclavian (Right) ArterialAV Fistula Upper Arm (Left) Venous BP Standing (Pre-Dialysis) 94/45 mmHg BP Standing (P ost-Dialysis) 102/49 mmHg Sitting Heart Rate Pre-Dialysis 60 BPM Sitting Heart Rate Post-Dialysis 60 BPM Standing Heart Rate Pre-Dialysis 61 BPM Standing Heart Rate Post-Dialysis 60 BPM Temperature Pre-Dialysis 97.6 degF Temperature Post -Dialysis 97.3 degF September 22, 2024 In-Center Hemodialysis Treatment 4750-01-98L23:43:30.000Z 8582-29-61Q62:22:16.000Z BP Sitting (Pre-Dialysis) 94/40 mmHg BP Sitting (Post-Dialysis) 133/56 mmHg Concurrent Access: falseCentral Venous Catheter (CVC) Subclavian (Right) ArterialAV Fistula Upper Arm (Left) Venous BP Standing (Pre-Dialysis) 98/42 mmHg BP Standing (P ost-Dialysis) 108/54 mmHg Sitting Heart Rate Pre-Dialysis 60 BPM Sitting Heart Rate Post-Dialysis 67 BPM Standing Heart Rate Pre-Dialysis 60 BPM Standing Heart Rate Post-Dialysis 69 BPM Temperature Pre-Dialysis 98.3 degF Temperature Post -Dialysis 97.3 degF September 19, 2024 In-Center Hemodialysis Treatment 2898-65-01J23:53:08.000Z 1794-15-59V47:22:53.000Z BP Sitting (Pre-Dialysis) 100/56 mmHg BP Sitting (Post-Dialysis) 104/66 mmHg Concurrent Access: falseCentral Venous Catheter (CVC) Subclavian (Right) ArterialAV Fistula Upper Arm (Left) Venous BP Standing (Pre-Dialysis) 159/57 mmHg BP Standing (P ost-Dialysis) 102/51 mmHg Sitting Heart Rate Pre-Dialysis 61 BPM Sitting Heart Rate Post-Dialysis 62 BPM Standing Heart Rate Pre-Dialysis 60 BPM Standing Heart Rate Post-Dialysis 68 BPM Temperature Pre-Dialysis 97.3 degF Temperature Post -Dialysis 97.3 degF September 17, 2024 In-Center Hemodialysis Treatment 3259-06-47Y48:41:00.000Z 5942-89-81T70:11:53.000Z BP Sitting (Pre-Dialysis) 101/48 mmHg BP Sitting (Post-Dialysis) 122/54 mmHg Concurrent Access: falseCentral Venous Catheter (CVC) Subclavian (Right) ArterialAV Fistula Upper Arm (Left) Venous BP Standing (Pre-Dialysis) 125/72 mmHg BP Standing (P ost-Dialysis) 122/90 mmHg Sitting Heart Rate Pre-Dialysis 72 BPM Sitting Heart Rate Post-Dialysis 60 BPM Standing Heart Rate Pre-Dialysis 74 BPM Standing Heart Rate Post-Dialysis 68 BPM Temperature Pre-Dialysis 98.3 degF Temperature Post -Dialysis 97.3 degF September 15, 2024 In-Center Hemodialysis Treatment 1856-22-09D08:11:37.000Z 8203-09-29L22:31:32.000Z BP Sitting (Pre-Dialysis) 91/47 mmHg BP Sitting (Post-Dialysis) 106/50 mmHg Concurrent Access: falseCentral Venous Catheter (CVC) Subclavian (Right) Arterial BP Standing (Pre-Dialysis) 90/41 mmHg BP Standing (P ost-Dialysis) 100/44 mmHg Sitting Heart Rate Pre-Dialysis 69 BPM Sitting Heart Rate Post-Dialysis 72 BPM Standing Heart Rate Pre-Dialysis 69 BPM Standing Heart Rate Post-Dialysis 70 BPM Temperature Pre-Dialysis 97.6 degF Temperature Post -Dialysis 97.9 degF September 12, 2024 In-Center Hemodialysis Treatment 3891-14-26Z23:53:42.000Z 2821-70-91B60:28:28.000Z BP Sitting (Pre-Dialysis) 121/55 mmHg BP Sitting (Post-Dialysis) 148/76 mmHg Concurrent Access: falseCentral Venous Catheter (CVC) Subclavian (Right) Arterial Sitting Heart Rate Pre-Dialysis 68 BPM BP Standing (Post-Dialysis) 147/64 mmHg Temperature Pre-Dialysis 97.9 degF Sitting Heart Ra te Post-Dialysis 67 BPM Standing Heart Rate Post-Erika lysis 67 BPM Temperature Post-Dialysis 97 .8 degF September 10, 2024 In-Center Hemodialysis Treatment 1573-12-41F71:50:06.000Z 8984-07-11S53:19:31.000Z BP Sitting (Pre-Dialysis) 154/76 mmHg BP Sitting (Post-Dialysis) 154/80 mmHg Concurrent Access: falseCentral Venous Catheter (CVC) Subclavian (Right) Arterial BP Standing (Pre-Dialysis) 158/70 mmHg BP Standing (P ost-Dialysis) 134/58 mmHg Sitting Heart Rate Pre-Dialysis 64 BPM Sitting Heart Rate Post-Dialysis 70 BPM Standing Heart Rate Pre-Dialysis 70 BPM Standing Heart Rate Post-Dialysis 68 BPM Temperature Pre-Dialysis 98 degF Temperature Post -Dialysis 98 degF September 08, 2024 In-Center Hemodialysis Treatment 7416-72-92Y87:45:00.000Z 8216-45-61O21:19:21.000Z BP Sitting (Pre-Dialysis) 99/48 mmHg BP Sitting (Post-Dialysis) 138/66 mmHg Concurrent Access: falseCentral Venous Catheter (CVC) Subclavian (Right) Arterial BP Standing (Pre-Dialysis) 97/48 mmHg Sitti ng Heart Rate Post-Dialysis 60 BPM Sitting Heart Rate Pre-Dialysis 60 BPM Temperatu re Post-Dialysis 97.8 degF Standing Heart Rate Pre-Dialysis 60 BPM Temperature Pre-Dialysis 98.1 degF September 05, 2024 In-Center Hemodialysis Treatment 0108-27-22N17:44:53.000Z 5890-02-12N48:31:53.000Z BP Sitting (Pre-Dialysis) 111/52 mmHg Concurrent Access: falseCentral Venous Catheter (CVC) Subclavian (Right) Arterial BP Standing (Pre-Dialysis) 109/55 mmHg Sitting Heart Rate Pre-Dialysis 60 BPM Standing Heart Rate Pre-Dialysis 62 BPM Temperature Pre-Dialysis 97.5 degF September 03, 2024 In-Center Hemodialysis Treatment 3576-71-84I33:52:17.000Z 5388-81-70G95:31:17.000Z BP Sitting (Pre-Dialysis) 118/53 mmHg BP Sitting (Post-Dialysis) 118/50 mmHg Concurrent Access: falseCentral Venous Catheter (CVC) Subclavian (Right) Arterial BP Standing (Pre-Dialysis) 125/59 mmHg BP Standing (P ost-Dialysis) 104/54 mmHg Sitting Heart Rate Pre-Dialysis 60 BPM Sitting Heart Rate Post-Dialysis 66 BPM Standing Heart Rate Pre-Dialysis 60 BPM Standing Heart Rate Post-Dialysis 98 BPM Temperature Pre-Dialysis 97.4 degF Temperature Post -Dialysis 97.9 degF September 01, 2024 In-Center Hemodialysis Treatment 6116-71-87B27:59:50.000Z 1382-00-73B32:33:22.000Z BP Sitting (Pre-Dialysis) 101/43 mmHg BP Sitting (Post-Dialysis) 119/59 mmHg Concurrent Access: falseCentral Venous Catheter (CVC) Subclavian (Right) Arterial BP Standing (Pre-Dialysis) 105/49 mmHg Sitti ng Heart Rate Post-Dialysis 62 BPM Sitting Heart Rate Pre-Dialysis 60 BPM Temperatu re Post-Dialysis 97.6 degF Standing Heart Rate Pre-Dialysis 60 BPM Temperature Pre-Dialysis 97.8 degF August 29, 2024 In-Center Hemodialysis Treatment 2400-09-95I95:51:27.000Z 8230-92-19X87:21:28.000Z BP Sitting (Pre-Dialysis) 105/58 mmHg BP Sitting (Post-Dialysis) 144/71 mmHg Concurrent Access: falseCentral Venous Catheter (CVC) Subclavian (Right) Arterial Sitting Heart Rate Pre-Dialysis 60 BPM BP Standi ng (Post-Dialysis) 120/67 mmHg Temperature Pre-Dialysis 98 degF Sitting Heart Ra te Post-Dialysis 60 BPM Standing Heart Rate Post-Erika lysis 66 BPM Temperature Post-Dialysis 97 .9 degF August 27, 2024 In-Center Hemodialysis Treatment 2241-89-68U11:48:07.000Z 5566-94-40D00:23:48.000Z BP Sitting (Pre-Dialysis) 188/90 mmHg BP Sitting (Post-Dialysis) 182/87 mmHg Concurrent Access: falseCentral Venous Catheter (CVC) Subclavian (Right) Arterial Sitting Heart Rate Pre-Dialysis 60 BPM BP Standing (Post-Dialysis) 155/77 mmHg Temperature Pre-Dialysis 98.5 degF Sitting Heart Ra te Post-Dialysis 60 BPM Standing Heart Rate Post-Erika lysis 62 BPM Temperature Post-Dialysis 98 .1 degF August 25, 2024 In-Center Hemodialysis Treatment 1634-83-92V89:55:05.000Z 2746-17-75T15:27:09.000Z BP Sitting (Pre-Dialysis) 97/44 mmHg BP Sitting (Post-Dialysis) 137/65 mmHg Concurrent Access: falseCentral Venous Catheter (CVC) Subclavian (Right) Arterial BP Standing (Pre-Dialysis) 122/97 mmHg BP Standing (P ost-Dialysis) 100/54 mmHg Sitting Heart Rate Pre-Dialysis 60 BPM Sitting Heart Rate Post-Dialysis 60 BPM Standing Heart Rate Pre-Dialysis 60 BPM Standing Heart Rate Post-Dialysis 68 BPM Temperature Pre-Dialysis 97.3 degF Temperature Post -Dialysis 97.6 degF August 22, 2024 In-Center Hemodialysis Treatment 6548-15-25H55:55:00.000Z 8553-11-55Y63:26:36.000Z BP Sitting (Pre-Dialysis) 99/51 mmHg BP Sitting (Post-Dialysis) 125/80 mmHg Concurrent Access: falseCentral Venous Catheter (CVC) Subclavian (Right) Arterial Sitting Heart Rate Pre-Dialysis 60 BPM Sitting H eart Rate Post-Dialysis 82 BPM Temperature Pre-Dialysis 98 degF Temperature Post -Dialysis 98.1 degF August 20, 2024 In-Center Hemodialysis Treatment 8786-92-45Q07:43:00.000Z 8369-11-45P19:20:55.000Z BP Sitting (Pre-Dialysis) 103/50 mmHg BP Sitting (Post-Dialysis) 132/55 mmHg Concurrent Access: falseCentral Venous Catheter (CVC) Subclavian (Right) Arterial BP Standing (Pre-Dialysis) 102/44 mmHg BP Standing (P ost-Dialysis) 120/52 mmHg Sitting Heart Rate Pre-Dialysis 65 BPM Sitting Heart Rate Post-Dialysis 62 BPM Standing Heart Rate Pre-Dialysis 67 BPM Standing Heart Rate Post-Dialysis 68 BPM Temperature Pre-Dialysis 97.9 degF Temperature Post -Dialysis 97.7 degF August 18, 2024 In-Center Hemodialysis Treatment 8288-45-76K77:55:30.000Z 4135-21-81A11:29:44.000Z BP Sitting (Pre-Dialysis) 101/52 mmHg BP Sitting (Post-Dialysis) 157/66 mmHg Concurrent Access: falseCentral Venous Catheter (CVC) Subclavian (Right) Arterial BP Standing (Pre-Dialysis) 106/50 mmHg BP Standing (P ost-Dialysis) 128/56 mmHg Sitting Heart Rate Pre-Dialysis 60 BPM Sitting Heart Rate Post-Dialysis 69 BPM Standing Heart Rate Pre-Dialysis 60 BPM Standing Heart Rate Post-Dialysis 72 BPM Temperature Pre-Dialysis 97.1 degF Temperature Post -Dialysis 97.9 degF August 15, 2024 In-Center Hemodialysis Treatment 1246-47-54B25:59:05.000Z 0043-98-31L52:35:20.000Z BP Sitting (Pre-Dialysis) 99/57 mmHg BP Sitting (Post-Dialysis) 145/52 mmHg Concurrent Access: falseCentral Venous Catheter (CVC) Subclavian (Right) Arterial Sitting Heart Rate Pre-Dialysis 67 BPM BP Standi ng (Post-Dialysis) 130/48 mmHg Temperature Pre-Dialysis 98 degF Sitting Heart Ra te Post-Dialysis 65 BPM Standing Heart Rate Post-Erika lysis 69 BPM Temperature Post-Dialysis 98 degF August 13, 2024 In-Center Hemodialysis Treatment 5055-71-80H36:48:00.000Z 8728-89-87Y03:22:08.000Z BP Sitting (Pre-Dialysis) 109/49 mmHg BP Sitting (Post-Dialysis) 137/63 mmHg Concurrent Access: falseCentral Venous Catheter (CVC) Subclavian (Right) Arterial BP Standing (Pre-Dialysis) 111/54 mmHg BP Standing (P ost-Dialysis) 128/96 mmHg Sitting Heart Rate Pre-Dialysis 60 BPM Sitting Heart Rate Post-Dialysis 62 BPM Standing Heart Rate Pre-Dialysis 66 BPM Standing Heart Rate Post-Dialysis 68 BPM Temperature Pre-Dialysis 98.3 degF Temperature Post -Dialysis 98.3 degF August 11, 2024 In-Center Hemodialysis Treatment 1786-01-07S34:03:14.000Z 6051-07-92M95:33:40.000Z BP Sitting (Pre-Dialysis) 196/100 mmHg BP Sitting (Post-Dialysis) 209/92 mmHg Concurrent Access: falseCentral Venous Catheter (CVC) Subclavian (Right) Arterial BP Standing (Pre-Dialysis) 192/94 mmHg BP Standing (P ost-Dialysis) 182/55 mmHg Sitting Heart Rate Pre-Dialysis 65 BPM Sitting Heart Rate Post-Dialysis 66 BPM Standing Heart Rate Pre-Dialysis 62 BPM Standing Heart Rate Post-Dialysis 72 BPM Temperature Pre-Dialysis 97.6 degF Temperature Post -Dialysis 98.1 degF August 08, 2024 In-Center Hemodialysis Treatment 1316-41-43V64:53:19.000Z 8939-68-67H39:22:49.000Z BP Sitting (Pre-Dialysis) 90/41 mmHg BP Sitting (Post-Dialysis) 116/57 mmHg Concurrent Access: falseCentral Venous Catheter (CVC) Subclavian (Right) Arterial Sitting Heart Rate Pre-Dialysis 60 BPM BP Standi ng (Post-Dialysis) 121/53 mmHg Temperature Pre-Dialysis 98 degF Sitting Heart Ra te Post-Dialysis 60 BPM Standing Heart Rate Post-Erika lysis 65 BPM Temperature Post-Dialysis 98 .5 degF August 06, 2024 In-Center Hemodialysis Treatment 0303-89-48Q35:49:38.000Z 9686-43-11J64:31:01.000Z BP Sitting (Pre-Dialysis) 97/42 mmHg BP Sitting (Post-Dialysis) 140/52 mmHg Concurrent Access: falseCentral Venous Catheter (CVC) Subclavian (Right) Arterial BP Standing (Pre-Dialysis) 100/44 mmHg BP Standing (P ost-Dialysis) 116/57 mmHg Sitting Heart Rate Pre-Dialysis 69 BPM Sitting Heart Rate Post-Dialysis 68 BPM Standing Heart Rate Pre-Dialysis 67 BPM Standing Heart Rate Post-Dialysis 73 BPM Temperature Pre-Dialysis 98.1 degF Temperature Post -Dialysis 97.6 degF August 04, 2024 In-Center Hemodialysis Treatment [id number]:56.000Z [id number]:28:01.000Z BP Sitting (Pre-Dialysis) 108/54 mmHg BP Sitting (Post-Dialysis) 108/47 mmHg Concurrent Access: falseCentral Venous Catheter (CVC) Subclavian (Right) Arterial BP Standing (Pre-Dialysis) 115/56 mmHg BP Standing (P ost-Dialysis) 103/51 mmHg Sitting Heart Rate Pre-Dialysis 60 BPM Sitting Heart Rate Post-Dialysis 60 BPM Standing Heart Rate Pre-Dialysis 60 BPM Standing Heart Rate Post-Dialysis 60 BPM Temperature Pre-Dialysis 97.9 degF Temperature Post -Dialysis 97.6 degF August 01, 2024 In-Center Hemodialysis Treatment [id number]:53.000Z [id number]:23.000Z BP Sitting (Pre-Dialysis) 113/52 mmHg BP Sitting (Post-Dialysis) 121/93 mmHg Concurrent Access: falseCentral Venous Catheter (CVC) Subclavian (Right) Arterial Sitting Heart Rate Pre-Dialysis 60 BPM BP Standing (Post-Dialysis) 112/81 mmHg Temperature Pre-Dialysis 97.5 degF Sitting Heart Ra te Post-Dialysis 65 BPM Standing Heart Rate Post-Erika lysis 67 BPM Temperature Post-Dialysis 97 .3 degF July 30, 2024 In-Center Hemodialysis Treatment [id number]:52:50.000Z [id number]:22:11.000Z BP Sitting (Pre-Dialysis) 122/57 mmHg BP Sitting (Post-Dialysis) 141/67 mmHg Concurrent Access: falseCentral Venous Catheter (CVC) Subclavian (Right) Arterial BP Standing (Pre-Dialysis) 116/55 mmHg BP Standing (P ost-Dialysis) 129/77 mmHg Sitting Heart Rate Pre-Dialysis 60 BPM Sitting Heart Rate Post-Dialysis 61 BPM Standing Heart Rate Pre-Dialysis 60 BPM Standing Heart Rate Post-Dialysis 67 BPM Temperature Pre-Dialysis 97.6 degF Temperature Post -Dialysis 97.3 degF July 28, 2024 In-Center Hemodialysis Treatment [id number]:48:00.000Z [id number]:21:54.000Z BP Sitting (Pre-Dialysis) 112/58 mmHg BP Sitting (Post-Dialysis) 154/69 mmHg Concurrent Access: falseCentral Venous Catheter (CVC) Subclavian (Right) Arterial BP Standing (Pre-Dialysis) 105/47 mmHg BP Standing (P ost-Dialysis) 146/50 mmHg Sitting Heart Rate Pre-Dialysis 60 BPM Sitting Heart Rate Post-Dialysis 68 BPM Standing Heart Rate Pre-Dialysis 65 BPM Standing Heart Rate Post-Dialysis 73 BPM Temperature Pre-Dialysis 97.6 degF Temperature Post -Dialysis 98.6 degF July 25, 2024 In-Center Hemodialysis Treatment [id number]:49:30.000Z [id number]:26:10.000Z BP Sitting (Pre-Dialysis) 177/76 mmHg BP Sitting (Post-Dialysis) 102/53 mmHg Concurrent Access: falseCentral Venous Catheter (CVC) Subclavian (Right) Arterial BP Standing (Pre-Dialysis) 174/82 mmHg Sitti ng Heart Rate Post-Dialysis 60 BPM Sitting Heart Rate Pre-Dialysis 62 BPM Temperatu re Post-Dialysis 97.5 degF Standing Heart Rate Pre-Dialysis 65 BPM Temperature Pre-Dialysis 97.5 degF July 23, 2024 In-Center Hemodialysis Treatment [id number]:57:55.000Z [id number]:31:10.000Z BP Sitting (Pre-Dialysis) 92/63 mmHg BP Sitting (Post-Dialysis) 115/90 mmHg Concurrent Access: falseCentral Venous Catheter (CVC) Subclavian (Right) Arterial BP Standing (Pre-Dialysis) 110/79 mmHg BP Standing (P ost-Dialysis) 119/70 mmHg Sitting Heart Rate Pre-Dialysis 60 BPM Sitting Heart Rate Post-Dialysis 65 BPM Standing Heart Rate Pre-Dialysis 60 BPM Standing Heart Rate Post-Dialysis 68 BPM Temperature Pre-Dialysis 97.9 degF Temperature Post -Dialysis 98.2 degF July 21, 2024 In-Center Hemodialysis Treatment [id number]:46:00.000Z [id number]:27:57.000Z BP Sitting (Pre-Dialysis) 99/42 mmHg BP Sitting (Post-Dialysis) 113/53 mmHg Concurrent Access: falseCentral Venous Catheter (CVC) Subclavian (Right) Arterial BP Standing (Pre-Dialysis) 93/40 mmHg BP Standing (P ost-Dialysis) 118/82 mmHg Sitting Heart Rate Pre-Dialysis 62 BPM Sitting Heart Rate Post-Dialysis 66 BPM Standing Heart Rate Pre-Dialysis 67 BPM Standing Heart Rate Post-Dialysis 73 BPM Temperature Pre-Dialysis 97.6 degF Temperature Post -Dialysis 97.9 degF July 18, 2024 In-Center Hemodialysis Treatment [id number]:09:11.000Z [id number]:42:04.000Z BP Sitting (Pre-Dialysis) 92/42 mmHg BP Sitting (Post-Dialysis) 105/53 mmHg Concurrent Access: falseCentral Venous Catheter (CVC) Subclavian (Right) Arterial BP Standing (Pre-Dialysis) 136/95 mmHg BP Standing (P ost-Dialysis) 115/51 mmHg Sitting Heart Rate Pre-Dialysis 60 BPM Sitting Heart Rate Post-Dialysis 55 BPM Standing Heart Rate Pre-Dialysis 70 BPM Standing Heart Rate Post-Dialysis 60 BPM Temperature Pre-Dialysis 97.3 degF Temperature Post -Dialysis 97.9 degF July 16, 2024 In-Center Hemodialysis Treatment [id number]:57:00.000Z [id number]:40:04.000Z BP Sitting (Pre-Dialysis) 101/51 mmHg BP Sitting (Post-Dialysis) 138/62 mmHg Concurrent Access: falseCentral Venous Catheter (CVC) Subclavian (Right) Arterial BP Standing (Pre-Dialysis) 102/51 mmHg BP Standing (P ost-Dialysis) 130/64 mmHg Sitting Heart Rate Pre-Dialysis 60 BPM Sitting Heart Rate Post-Dialysis 60 BPM Standing Heart Rate Pre-Dialysis 60 BPM Standing Heart Rate Post-Dialysis 61 BPM Temperature Pre-Dialysis 97.3 degF Temperature Post -Dialysis 98.2 degF July 14, 2024 In-Center Hemodialysis Treatment [id number]:57:25.000Z [id number]:28:26.000Z BP Sitting (Pre-Dialysis) 101/50 mmHg BP Sitting (Post-Dialysis) 139/60 mmHg Concurrent Access: falseCentral Venous Catheter (CVC) Subclavian (Right) Arterial BP Standing (Pre-Dialysis) 102/51 mmHg Sitti ng Heart Rate Post-Dialysis 68 BPM Sitting Heart Rate Pre-Dialysis 65 BPM Temperatu re Post-Dialysis 98.4 degF Standing Heart Rate Pre-Dialysis 60 BPM Temperature Pre-Dialysis 97.6 degF July 11, 2024 In-Center Hemodialysis Treatment [id number]:51:00.000Z [id number]:25:30.000Z BP Sitting (Pre-Dialysis) 110/51 mmHg BP Sitting (Post-Dialysis) 125/50 mmHg Concurrent Access: falseCentral Venous Catheter (CVC) Subclavian (Right) Arterial Sitting Heart Rate Pre-Dialysis 62 BPM BP Standi ng (Post-Dialysis) 109/74 mmHg Temperature Pre-Dialysis 98 degF Sitting Heart Ra te Post-Dialysis 62 BPM Standing Heart Rate Post-Erika lysis 72 BPM Temperature Post-Dialysis 97 .6 degF July 09, 2024 In-Center Hemodialysis Treatment [id number]:00:30.000Z [id number]:28:10.000Z BP Sitting (Pre-Dialysis) 96/45 mmHg BP Sitting (Post-Dialysis) 117/50 mmHg Concurrent Access: falseCentral Venous Catheter (CVC) Subclavian (Right) Arterial BP Standing (Pre-Dialysis) 93/48 mmHg BP Standing (P ost-Dialysis) 108/66 mmHg Sitting Heart Rate Pre-Dialysis 65 BPM Sitting Heart Rate Post-Dialysis 66 BPM Standing Heart Rate Pre-Dialysis 60 BPM Standing Heart Rate Post-Dialysis 66 BPM Temperature Pre-Dialysis 98 degF Temperature Post -Dialysis 97.4 degF July 07, 2024 In-Center Hemodialysis Treatment [id number]:02:33.000Z [id number]:43:58.000Z BP Sitting (Pre-Dialysis) 124/54 mmHg BP Sitting (Post-Dialysis) 119/78 mmHg Concurrent Access: falseCentral Venous Catheter (CVC) Subclavian (Right) Arterial Sitting Heart Rate Pre-Dialysis 61 BPM BP Standi ng (Post-Dialysis) 100/60 mmHg Temperature Pre-Dialysis 98 degF Sitting Heart Ra te Post-Dialysis 62 BPM Standing Heart Rate Post-Erika lysis 60 BPM July 04, 2024 In-Center Hemodialysis Treatment [id number]:09:34.000Z [id number]:44:04.000Z BP Sitting (Pre-Dialysis) 97/49 mmHg BP Sitting (Post-Dialysis) 145/69 mmHg Concurrent Access: falseCentral Venous Catheter (CVC) Subclavian (Right) Arterial Sitting Heart Rate Pre-Dialysis 62 BPM Sitting H eart Rate Post-Dialysis 67 BPM Temperature Pre-Dialysis 97.5 degF Temperature Post -Dialysis 97.3 degF July 02, 2024 In-Center Hemodialysis Treatment [id number]:06:29.000Z [id number]:43:25.000Z BP Sitting (Pre-Dialysis) 98/55 mmHg BP Sitting (Post-Dialysis) 133/58 mmHg Concurrent Access: falseCentral Venous Catheter (CVC) Subclavian (Right) Arterial BP Standing (Pre-Dialysis) 97/48 mmHg BP Standing (P ost-Dialysis) 143/56 mmHg Sitting Heart Rate Pre-Dialysis 62 BPM Sitting Heart Rate Post-Dialysis 72 BPM Standing Heart Rate Pre-Dialysis 65 BPM Standing Heart Rate Post-Dialysis 80 BPM Temperature Pre-Dialysis 97.3 degF Temperature Post -Dialysis 97.6 degF June 30, 2024 In-Center Hemodialysis Treatment [id number]:02:00.000Z [id number]:37:28.000Z BP Sitting (Pre-Dialysis) 231/98 mmHg BP Sitting (Post-Dialysis) 178/66 mmHg Concurrent Access: falseCentral Venous Catheter (CVC) Subclavian (Right) Arterial BP Standing (Pre-Dialysis) 227/98 mmHg BP Standing (P ost-Dialysis) 171/91 mmHg Sitting Heart Rate Pre-Dialysis 72 BPM Sitting Heart Rate Post-Dialysis 60 BPM Standing Heart Rate Pre-Dialysis 70 BPM Standing Heart Rate Post-Dialysis 73 BPM Temperature Pre-Dialysis 98 degF Temperature Post -Dialysis 97.3 degF June 27, 2024 In-Center Hemodialysis Treatment [id number]:57:32.000Z [id number]:28:42.000Z BP Sitting (Pre-Dialysis) 185/109 mmHg BP Sitting (Post-Dialysis) 210/87 mmHg Concurrent Access: falseCentral Venous Catheter (CVC) Subclavian (Right) Arterial BP Standing (Pre-Dialysis) 219/94 mmHg BP Standing (P ost-Dialysis) 197/79 mmHg Sitting Heart Rate Pre-Dialysis 74 BPM Sitting Heart Rate Post-Dialysis 70 BPM Standing Heart Rate Pre-Dialysis 69 BPM Standing Heart Rate Post-Dialysis 80 BPM Temperature Pre-Dialysis 97.9 degF Temperature Post -Dialysis 97.5 degF June 25, 2024 In-Center Hemodialysis Treatment [id number]:27:27.000Z [id number]:06:43.000Z BP Sitting (Pre-Dialysis) 188/85 mmHg BP Sitting (Post-Dialysis) 178/89 mmHg Concurrent Access: falseCentral Venous Catheter (CVC) Subclavian (Right) Arterial BP Standing (Pre-Dialysis) 145/75 mmHg BP Standing (P ost-Dialysis) 133/74 mmHg Sitting Heart Rate Pre-Dialysis 73 BPM Sitting Heart Rate Post-Dialysis 71 BPM Standing Heart Rate Pre-Dialysis 77 BPM Standing Heart Rate Post-Dialysis 80 BPM Temperature Pre-Dialysis 98 degF Temperature Post -Dialysis 97.9 degF DIALYSIS ORDER Dialysis Procedure Orders Type of Dialysis Procedure Order Order Date/Time Observations In-Center Hemodialysis Treatment October Target Weight 58.5 kg Dialysate Flow Rate 500 mL/min Blood Flow Rate 350 mL/min Treatment Time 210 min(total) Max UF Rate 13 mL/kg/hr Base Sodium Dialysate Base Sodium 138 mE q/L dialysate_temp 37 C BiCarb Dialysate BiCarbonate 35 meq/L Access Concurrent No Arterial Access Central Venous Flavia ter (CVC) (Subclavian (Right)) Venous Access Central Venous Flavia ter (CVC) (Subclavian (Right)) Dialyzer [employer] Optiflux F 160NR 1025 [email or web address] Dialysate Bath Potassium Potassium 2 mEq /L Dialysate Bath Calcium Calcium 2.5 mEq/L Results Adequacy Description Draw Date Result/Unit Status Ref Range Result Comments PATIENT AGE 2024-11-03 17:07:07 84 Years F WEIGHT - PRE DAY 1 2024-11-03 17:07:07 59.3 kg F nPCR 2024-11-03 17:07:07 0.61 G/KG/D F DIALYZER FLOW-QD 2024-11-03 17:07:07 500 mL/min F Dialyzer GINNA 2024-11-03 17:07:07 1025 Calc F VM (KT/V MEAN VOL) 2024-11-03 17:07:07 32.1 F stdKT/V Total 2024-11-03 17:07:07 N/A F LENGTH OF DIALYSIS 2024-11-03 17:07:07 205 min F spKt/V 2024-11-03 17:07:07 1.45 F AMPUTATE FACTOR 2024-11-03 17:07:07 0 F Std Renal KT/V 2024-11-03 17:07:07 N/A F eKt/V 2024-11-03 17:07:07 1.23 F WEIGHT (KG) 2024-11-03 17:07:07 59 kg F TOTAL HOURS/WEEK DIALYSIS 2024-11-03 17:07:07 6 hrs F VT (KT/V TX VOL) 2024-11-03 17:07:07 33.1 L F PRESCRIBED DAYS/WEEK 2024-11-03 17:07:07 2 Day/Wk F BLOOD FLOW-QWB 2024-11-03 17:07:07 327 F WEIGHT - POST DAY 1 2024-11-03 17:07:07 58.6 kg F BSA EDDIE 2024-11-03 17:07:07 1.67 sq m F URR% 2024-11-03 17:07:07 74 % F Residual kt/v 2024-11-03 17:07:07 F CURRENT KRU 2024-11-03 17:07:07 F KT/V PRESCRIBED 2024-11-03 17:07:07 1.8 F Total Kt/V 2024-11-03 17:07:07 1.45 F stdKt/V (DIAL) 2024-11-03 17:07:07 N/A F TBW (Sullivan) 2024-11-03 17:07:07 32.35 Liters F HEIGHT IN INCHES 2024-11-03 17:07:07 66 Inches F Urea nitrogen [Mass/volume] in Serum or Plasma --post dialysis 2024-11-03 17:03:20 13 mg/dL F 9.0-23.0 Urea nitrogen [Mass/volume] in Serum or Plasma 2024-11-03 16:34:25 50 mg/dL F 9.0-23.0 PATIENT AGE 2024-10-29 03:37:30 84 Years F nPCR 2024-10-29 03:37:30 0.29 G/KG/D F VM (KT/V MEAN VOL) 2024-10-29 03:37:30 31.8 F eKt/V 2024-10-29 03:37:30 0.48 F HEIGHT IN INCHES 2024-10-29 03:37:30 66 Inches F VT (KT/V TX VOL) 2024-10-29 03:37:30 95.7 L F LENGTH OF DIALYSIS 2024-10-29 03:37:30 207 min F URR% 2024-10-29 03:37:30 39 % F spKt/V 2024-10-29 03:37:30 0.52 F AMPUTATE FACTOR 2024-10-29 03:37:30 0 F BSA EDDIE 2024-10-29 03:37:30 1.67 sq m F PRESCRIBED DAYS/WEEK 2024-10-29 03:37:30 2 Day/Wk F TOTAL HOURS/WEEK DIALYSIS 2024-10-29 03:37:30 6 hrs F Std Renal KT/V 2024-10-29 03:37:30 N/A F DIALYZER FLOW-QD 2024-10-29 03:37:30 502 mL/min F TBW (Sullivan) 2024-10-29 03:37:30 32.48 Liters F KT/V PRESCRIBED 2024-10-29 03:37:30 1.82 F WEIGHT - PRE DAY 1 2024-10-29 03:37:30 58.8 kg F stdKT/V Total 2024-10-29 03:37:30 N/A F BLOOD FLOW-QWB 2024-10-29 03:37:30 350 F CURRENT KRU 2024-10-29 03:37:30 F stdKt/V (DIAL) 2024-10-29 03:37:30 N/A F Residual kt/v 2024-10-29 03:37:30 F Dialyzer GINNA 2024-10-29 03:37:30 1025 Calc F WEIGHT (KG) 2024-10-29 03:37:30 59 kg F WEIGHT - POST DAY 1 2024-10-29 03:37:30 59 kg F Total Kt/V 2024-10-29 03:37:30 0.52 F Urea nitrogen [Mass/volume] in Serum or Plasma 2024-10-29 03:35:18 23 mg/dL F 9.0-23.0 Urea nitrogen [Mass/volume] in Serum or Plasma --post dialysis 2024-10-28 18:14:15 14 mg/dL F 9.0-23.0 BUN/CREAT 2024-09-30 20:15:16 6.7 Calc F 6.9-32.9 Urea nitrogen [Mass/volume] in Serum or Plasma 2024-09-30 20:14:27 43 mg/dL F 9.0-23.0 Creatinine [Mass/volume] in Serum or Plasma 2024-09-30 20:14:27 6.38 mg/dL F 0.7-1.3 Dialyzer GINNA 2024-09-26 02:57:22 1025 Calc F WEIGHT - PRE DAY 1 2024-09-26 02:57:22 59 kg F stdKT/V Total 2024-09-26 02:57:22 N/A F nPCR 2024-09-26 02:57:22 0.73 G/KG/D F CURRENT KRU 2024-09-26 02:57:22 F stdKt/V (DIAL) 2024-09-26 02:57:22 N/A F TOTAL HOURS/WEEK DIALYSIS 2024-09-26 02:57:22 10 hrs F KT/V PRESCRIBED 2024-09-26 02:57:22 1.84 F VM (KT/V MEAN VOL) 2024-09-26 02:57:22 31.8 F URR% 2024-09-26 02:57:22 76 % F eKt/V 2024-09-26 02:57:22 1.35 F BSA EDDIE 2024-09-26 02:57:22 1.68 sq m F Total Kt/V 2024-09-26 02:57:22 1.59 F Residual kt/v 2024-09-26 02:57:22 F AMPUTATE FACTOR 2024-09-26 02:57:22 0 F DIALYZER FLOW-QD 2024-09-26 02:57:22 505 mL/min F VT (KT/V TX VOL) 2024-09-26 02:57:22 31.7 L F Std Renal KT/V 2024-09-26 02:57:22 N/A F PRESCRIBED DAYS/WEEK 2024-09-26 02:57:22 3 Day/Wk F HEIGHT IN INCHES 2024-09-26 02:57:22 66 Inches F BLOOD FLOW-QWB 2024-09-26 02:57:22 342 F TBW (Sullivan) 2024-09-26 02:57:22 32.45 Liters F LENGTH OF DIALYSIS 2024-09-26 02:57:22 211 min F WEIGHT (KG) 2024-09-26 02:57:22 60 kg F WEIGHT - POST DAY 1 2024-09-26 02:57:22 58.9 kg F PATIENT AGE 2024-09-26 02:57:22 84 Years F spKt/V 2024-09-26 02:57:22 1.59 F Urea nitrogen [Mass/volume] in Serum or Plasma --post dialysis 2024-09-26 02:15:17 8 mg/dL F 9.0-23.0 BUN/CREAT 2024-09-25 22:38:27 6 Calc F 6.9-32.9 Creatinine [Mass/volume] in Serum or Plasma 2024-09-25 22:37:18 5.69 mg/dL F 0.7-1.3 Urea nitrogen [Mass/volume] in Serum or Plasma 2024-09-25 22:37:18 34 mg/dL F 9.0-23.0 PRESCRIBED DAYS/WEEK 2024-09-05 01:17:40 3 Day/Wk F PATIENT AGE 2024-09-05 01:17:40 84 Years F URR% 2024-09-05 01:17:40 75 % F WEIGHT - PRE DAY 1 2024-09-05 01:17:40 61.5 kg F WEIGHT - POST DAY 1 2024-09-05 01:17:40 60.9 kg F VT (KT/V TX VOL) 2024-09-05 01:17:40 32.3 L F HEIGHT IN INCHES 2024-09-05 01:17:40 66 Inches F stdKT/V Total 2024-09-05 01:17:40 N/A F LENGTH OF DIALYSIS 2024-09-05 01:17:40 215 min F TBW ([place]) 2024-09-05 01:17:40 33.12 Liters F CURRENT KRU 2024-09-05 01:17:40 F BLOOD FLOW-QWB 2024-09-05 01:17:40 327 F spKt/V 2024-09-05 01:17:40 1.55 F BSA EDDIE 2024-09-05 01:17:40 1.69 sq m F KT/V PRESCRIBED 2024-09-05 01:17:40 1.85 F nPCR 2024-09-05 01:17:40 0.9 G/KG/D F stdKt/V (DIAL) 2024-09-05 01:17:40 N/A F eKt/V 2024-09-05 01:17:40 1.32 F Total Kt/V 2024-09-05 01:17:40 1.55 F DIALYZER FLOW-QD 2024-09-05 01:17:40 501 mL/min F Dialyzer GINNA 2024-09-05 01:17:40 1025 Calc F TOTAL HOURS/WEEK DIALYSIS 2024-09-05 01:17:40 10 hrs F WEIGHT (KG) 2024-09-05 01:17:40 61 kg F Residual kt/v 2024-09-05 01:17:40 F VM (KT/V MEAN VOL) 2024-09-05 01:17:40 31.8 F Std Renal KT/V 2024-09-05 01:17:40 N/A F AMPUTATE FACTOR 2024-09-05 01:17:40 0 F Urea nitrogen [Mass/volume] in Serum or Plasma 2024-09-05 01:16:18 44 mg/dL F 9.0-23.0 Urea nitrogen [Mass/volume] in Serum or Plasma --post dialysis 2024-09-04 23:26:24 11 mg/dL F 9.0-23.0 UREA CLR UR/BSA 2024-09-02 21:17:33 1.2 mL/min F 64.0-99.0 CRE CLR UR/BSA 2024-09-02 21:17:33 2 mL/min F 85.0-125.0 Creatinine [Mass/volume] in Urine 2024-09-02 21:16:26 60.24 mg/dL F Urea nitrogen [Mass/volume] in Urine 2024-09-02 21:16:26 279 mg/dL F BUN/CREAT 2024-09-02 17:04:21 8.3 Calc F 6.9-32.9 Creatinine [Mass/volume] in Serum or Plasma 2024-09-02 17:03:20 6.52 mg/dL F 0.7-1.3 Urea nitrogen [Mass/volume] in Serum or Plasma 2024-09-02 17:03:20 54 mg/dL F 9.0-23.0 BSA EDDIE 2024-09-02 16:38:29 1.78 sq m F URR% 2024-09-02 08:23:13 F Canceled - Specimen not received 5 days past draw date,Unable to Calculate. Urea nitrogen [Mass/volume] in Serum or Plasma --post dialysis 2024-09-02 07:26:19 F Canceled - Specimen not received 5 days past draw date Urea nitrogen [Mass/volume] in Serum or Plasma 2024-09-02 07:26:19 F Canceled - Specimen not received 5 days past draw date HEIGHT IN INCHES 2024-09-01 18:21:32 71 Inches F COLLECTION TIME FOR URINE 2024-09-01 18:21:32 1440 min F BODY WEIGHT (LBS) 2024-09-01 18:21:32 134.3 lbs F TOTAL VOLUME-24 HR URINE 2024-09-01 18:21:32 350 mL F AMPUTATE FACTOR 2024-09-01 18:21:28 0 F PATIENT AGE 2024-08-27 17:38:48 84 Years F AMPUTATE FACTOR 2024-08-27 17:38:48 0 F WEIGHT (KG) 2024-08-27 17:38:48 63 kg F HEIGHT IN INCHES 2024-08-27 17:38:48 71 Inches F VT (KT/V TX VOL) 2024-08-05 13:47:15 31.4 L F WEIGHT (KG) 2024-08-05 13:47:15 64 kg F DIALYZER FLOW-QD 2024-08-05 13:47:15 506 mL/min F nPCR 2024-08-05 13:47:15 1.01 G/KG/D F HEIGHT IN INCHES 2024-08-05 13:47:15 66 Inches F spKt/V 2024-08-05 13:47:15 1.6 F VM (KT/V MEAN VOL) 2024-08-05 13:47:15 31.6 F Residual kt/v 2024-08-05 13:47:15 F Dialyzer GINNA 2024-08-05 13:47:15 1025 Calc F TBW ([place]) 2024-08-05 13:47:15 34.23 Liters F Std Renal KT/V 2024-08-05 13:47:15 N/A F WEIGHT - POST DAY 1 2024-08-05 13:47:15 64.2 kg F TOTAL HOURS/WEEK DIALYSIS 2024-08-05 13:47:15 10 hrs F CURRENT KRU 2024-08-05 13:47:15 F stdKT/V Total 2024-08-05 13:47:15 N/A F PRESCRIBED DAYS/WEEK 2024-08-05 13:47:15 3 Day/Wk F KT/V PRESCRIBED 2024-08-05 13:47:15 1.81 F AMPUTATE FACTOR 2024-08-05 13:47:15 0 F PATIENT AGE 2024-08-05 13:47:15 84 Years F Total Kt/V 2024-08-05 13:47:15 1.6 F WEIGHT - PRE DAY 1 2024-08-05 13:47:15 66.8 kg F eKt/V 2024-08-05 13:47:15 1.36 F LENGTH OF DIALYSIS 2024-08-05 13:47:15 216 min F BLOOD FLOW-QWB 2024-08-05 13:47:15 320 F BSA EDDIE 2024-08-05 13:47:15 1.72 sq m F stdKt/V (DIAL) 2024-08-05 13:47:15 N/A F URR% 2024-08-05 13:47:14 74 % F BUN/CREAT 2024-08-05 13:46:10 10.5 Calc F 6.9-32.9 Creatinine [Mass/volume] in Serum or Plasma 2024-08-05 13:45:19 5.89 mg/dL F 0.7-1.3 Urea nitrogen [Mass/volume] in Serum or Plasma 2024-08-05 13:45:19 62 mg/dL F 9.0-23.0 Urea nitrogen [Mass/volume] in Serum or Plasma --post dialysis 2024-08-05 13:37:27 16 mg/dL F 9.0-23.0 AMPUTATE FACTOR 2024-07-08 17:04:14 0 F KT/V PRESCRIBED 2024-07-08 17:04:14 1.78 F VT (KT/V TX VOL) 2024-07-08 17:04:14 31.7 L F WEIGHT (KG) 2024-07-08 17:04:14 63 kg F WEIGHT - PRE DAY 1 2024-07-08 17:04:14 65.3 kg F Std Renal KT/V 2024-07-08 17:04:14 N/A F BSA EDDIE 2024-07-08 17:04:14 1.71 sq m F Residual kt/v 2024-07-08 17:04:14 F nPCR 2024-07-08 17:04:14 0.64 G/KG/D F Dialyzer GINNA 2024-07-08 17:04:14 1025 Calc F Total Kt/V 2024-07-08 17:04:14 1.61 F HEIGHT IN INCHES 2024-07-08 17:04:14 66 Inches F stdKT/V Total 2024-07-08 17:04:14 N/A F eKt/V 2024-07-08 17:04:14 1.36 F CURRENT KRU 2024-07-08 17:04:14 F URR% 2024-07-08 17:04:14 74 % F WEIGHT - POST DAY 1 2024-07-08 17:04:14 62.6 kg F PRESCRIBED DAYS/WEEK 2024-07-08 17:04:14 3 Day/Wk F PATIENT AGE 2024-07-08 17:04:14 84 Years F spKt/V 2024-07-08 17:04:14 1.61 F BLOOD FLOW-QWB 2024-07-08 17:04:14 350 F TOTAL HOURS/WEEK DIALYSIS 2024-07-08 17:04:14 10 hrs F VM (KT/V MEAN VOL) 2024-07-08 17:04:14 31.7 F TBW (Sullivan) 2024-07-08 17:04:14 33.69 Liters F DIALYZER FLOW-QD 2024-07-08 17:04:14 488 mL/min F LENGTH OF DIALYSIS 2024-07-08 17:04:14 211 min F stdKt/V (DIAL) 2024-07-08 17:04:14 N/A F Urea nitrogen [Mass/volume] in Serum or Plasma --post dialysis 2024-07-08 17:02:20 9 mg/dL F 9.0-23.0 CRE CLR UR/BSA 2024-07-08 16:44:18 6 mL/min F 85.0-125.0 Creatinine [Mass/volume] in Urine 2024-07-08 16:43:18 24.3 mg/dL F BUN/CREAT 2024-07-08 14:00:17 7 Calc F 6.9-32.9 Creatinine [Mass/volume] in Serum or Plasma 2024-07-08 13:59:17 5.01 mg/dL F 0.7-1.3 Urea nitrogen [Mass/volume] in Serum or Plasma 2024-07-08 13:59:17 35 mg/dL F 9.0-23.0 TOTAL VOLUME-24 HR URINE 2024-07-07 18:47:58 1400 mL F COLLECTION TIME FOR URINE 2024-07-07 18:47:58 1440 min F BODY WEIGHT (LBS) 2024-07-07 18:47:58 62.6 lbs F AMPUTATE FACTOR 2024-07-07 18:47:53 0 F BLOOD FLOW-QWB 2024-06-26 14:23:54 309 F PRESCRIBED DAYS/WEEK 2024-06-26 14:23:54 3 Day/Wk F BSA EDDIE 2024-06-26 14:23:54 F Unable to calculate: Post BUN lab result is unknown DIALYZER FLOW-QD 2024-06-26 14:23:54 504 mL/min F spKt/V 2024-06-26 14:23:54 F Unable to calculate: Post BUN lab result is unknown WEIGHT - POST DAY 1 2024-06-26 14:23:54 63.5 kg F WEIGHT - PRE DAY 1 2024-06-26 14:23:54 65.2 kg F nPCR 2024-06-26 14:23:54 F Unable to calculate: Post BUN lab result is unknown TBW ([facility]) 2024-06-26 14:23:54 F Unable to calculate: Post BUN lab result is unknown Dialyzer GINNA 2024-06-26 14:23:54 1025 Calc F VT (KT/V TX VOL) 2024-06-26 14:23:54 F Unable to calculate: Post BUN lab result is unknown HEIGHT IN INCHES 2024-06-26 14:23:54 66 Inches F PATIENT AGE 2024-06-26 14:23:54 84 Years F URR% 2024-06-26 14:23:54 F Unable to calculate: Post BUN lab result is unknown LENGTH OF DIALYSIS 2024-06-26 14:23:54 211 min F Total Kt/V 2024-06-26 14:23:54 F Unable to calculate: Post BUN lab result is unknown TOTAL HOURS/WEEK DIALYSIS 2024-06-26 14:23:54 3 hrs F AMPUTATE FACTOR 2024-06-26 14:23:54 0 F VM (KT/V MEAN VOL) 2024-06-26 14:23:54 F Unable to calculate: Post BUN lab result is unknown stdKT/V Total 2024-06-26 14:23:54 F Unable to calculate: Post BUN lab result is unknown stdKt/V (DIAL) 2024-06-26 14:23:54 F Unable to calculate: Post BUN lab result is unknown eKt/V 2024-06-26 14:23:54 F Unable to calculate: Post BUN lab result is unknown Residual kt/v 2024-06-26 14:23:54 F Unable to calculate: Post BUN lab result is unknown Std Renal KT/V 2024-06-26 14:23:54 F Unable to calculate: Post BUN lab result is unknown WEIGHT (KG) 2024-06-26 14:23:54 63 kg F CURRENT KRU 2024-06-26 14:23:54 F Unable to calculate: Post BUN lab result is unknown KT/V PRESCRIBED 2024-06-26 14:23:54 F Unable to calculate: Post BUN lab result is unknown BUN/CREAT 2024-06-26 14:23:04 11.8 Calc F 6.9-32.9 Creatinine [Mass/volume] in Serum or Plasma 2024-06-26 14:22:15 3.9 mg/dL F 0.7-1.3 Urea nitrogen [Mass/volume] in Serum or Plasma 2024-06-26 14:22:15 46 mg/dL F 9.0-23.0 TOTAL HOURS/WEEK DIALYSIS Dialyzer GINNA BLOOD FLOW-QWB LENGTH OF DIALYSIS PRESCRIBED DAYS/WEEK WEIGHT - PRE DAY 1 WEIGHT - POST DAY 1 DIALYZER FLOW-QD Std Renal KT/V TBW ([facility]) spKt/V Total Kt/V CURRENT KRU VM (KT/V MEAN VOL) nPCR eKt/V Residual kt/v KT/V PRESCRIBED BSA EDDIE stdKT/V Total VT (KT/V TX VOL) stdKt/V (DIAL) Anemia Description Draw Date Result/Unit Status Ref Range Result Comments HCT CALC [id number] 2024-11-19 03:34:58 23.4 % F 42.0-52.0 Hemoglobin [Mass/volume] in Blood 2024-11-19 03:34:16 7.8 g/dL F 14.0-18.0 HCT CALC [id number] 2024-11-05 06:56:09 30.6 % F 42.0-52.0 Hemoglobin [Mass/volume] in Blood 2024-11-05 06:55:15 10.2 g/dL F 14.0-18.0 IRON SATURATION 2024-11-04 04:57:28 22 % F 21.0-49.0 TIBC 2024-11-04 04:57:28 160 ug/dL F 250.0-425.0 Iron [Mass/volume] in Serum or Plasma 2024-11-04 04:35:32 35 ug/dL F 65.0-175.0 Iron binding capacity.unsaturated [Mass/volume] in Serum or Plasma 2024-11-04 04:35:32 125 ug/dL F 75.0-360.0 Ferritin [Mass/volume] in Serum or Plasma 2024-10-28 21:20:22 706 ng/mL F 22.0-322.0 HCT CALC HGBX3 2024-10-22 05:02:08 29.7 % F 42.0-52.0 Hemoglobin [Mass/volume] in Blood 2024-10-22 05:01:13 9.9 g/dL F 14.0-18.0 HCT CALC HGBX3 2024-10-07 15:34:31 28.2 % F 42.0-52.0 Hemoglobin [Mass/volume] in Blood 2024-10-07 15:33:19 9.4 g/dL F 14.0-18.0 IRON SATURATION 2024-09-26 06:17:20 6 % F 21.0-49.0 TIBC 2024-09-26 06:17:20 163 ug/dL F 250.0-425.0 Iron [Mass/volume] in Serum or Plasma 2024-09-26 06:11:17 10 ug/dL F 65.0-175.0 Iron binding capacity.unsaturated [Mass/volume] in Serum or Plasma 2024-09-26 06:11:17 153 ug/dL F 75.0-360.0 HCT CALC HGBX3 2024-09-26 00:55:03 26.7 % F 42.0-52.0 Hemoglobin [Mass/volume] in Blood 2024-09-26 00:54:04 8.9 g/dL F 14.0-18.0 Ferritin [Mass/volume] in Serum or Plasma 2024-09-25 22:11:11 F CANCELED - TEST CANCELED HCT CALC HGBX3 2024-08-05 23:23:04 21.9 % F 42.0-52.0 Hemoglobin [Mass/volume] in Blood 2024-08-05 23:22:23 7.3 g/dL F 14.0-18.0 IRON SATURATION 2024-07-09 09:14:20 20 % F 21.0-49.0 TIBC 2024-07-09 09:14:20 228 ug/dL F 250.0-425.0 Iron [Mass/volume] in Serum or Plasma 2024-07-09 07:01:56 46 ug/dL F 65.0-175.0 Iron binding capacity.unsaturated [Mass/volume] in Serum or Plasma 2024-07-09 07:01:56 182 ug/dL F 75.0-360.0 Ferritin [Mass/volume] in Serum or Plasma 2024-07-09 01:39:29 274 ng/mL F 22.0-322.0 HCT CALC HGBX3 2024-07-08 23:39:20 22.8 % F 42.0-52.0 Hemoglobin [Mass/volume] in Blood 2024-07-08 23:38:22 7.6 g/dL F 14.0-18.0 Iron [Mass/volume] in Serum or Plasma TIBC Iron binding capacity.unsaturated [Mass/volume] in Serum or Plasma IRON SATURATION Ferritin [Mass/volume] in Serum or Plasma Comorbidities Description Draw Date Result/Unit Status Ref Range Result Comments Hemoglobin A1c/Hemoglobin.total in Blood 2024-10-14 13:28:15 5.9 %A1c F 0.0-5.6 Hemoglobin A1c/Hemoglobin.total in Blood 2024-06-26 15:12:14 6.2 %A1c F 0.0-5.6 FluidBP Description Draw Date Result/Unit Status Ref Range Result Comments Sodium [Moles/volume] in Serum or Plasma 2024-11-05 03:51:02 143 mEq/L F 132.0-146.0 Sodium [Moles/volume] in Serum or Plasma 2024-09-30 23:37:50 148 mEq/L F 132.0-146.0 Sodium [Moles/volume] in Serum or Plasma 2024-09-26 06:11:17 143 mEq/L F 132.0-146.0 Sodium [Moles/volume] in Serum or Plasma 2024-09-03 00:46:17 145 mEq/L F 132.0-146.0 Sodium [Moles/volume] in Serum or Plasma 2024-08-06 07:03:42 139 mEq/L F 132.0-146.0 Sodium [Moles/volume] in Serum or Plasma 2024-07-09 07:01:53 144 mEq/L F 132.0-146.0 Sodium [Moles/volume] in Serum or Plasma 2024-06-27 00:44:53 140 mEq/L F 132.0-146.0 General Description Draw Date Result/Unit Status Ref Range Result Comments Chloride [Moles/volume] in Serum or Plasma 2024-09-30 23:37:50 109 mEq/L F 99.0-109.0 Chloride [Moles/volume] in Serum or Plasma 2024-09-26 06:11:17 106 mEq/L F 99.0-109.0 Chloride [Moles/volume] in Serum or Plasma 2024-09-03 00:46:17 107 mEq/L F 99.0-109.0 Chloride [Moles/volume] in Serum or Plasma 2024-08-06 07:03:42 103 mEq/L F 99.0-109.0 Chloride [Moles/volume] in Serum or Plasma 2024-07-09 07:01:53 104 mEq/L F 99.0-109.0 Chloride [Moles/volume] in Serum or Plasma 2024-06-27 00:44:53 103 mEq/L F 99.0-109.0 Aluminum [Mass/volume] in Serum or Plasma 2024-06-26 17:06:23 10 ug/L F 0.0-9.0 Alanine aminotransferase [Enzymatic activity/volume] in Serum or Plasma 2024-06-26 14:22:15 18 U/L F 10.0-49.0 MineralBone Disorder Description Draw Date Result/Unit Status Ref Range Result Comments Parathyrin.intact [Mass/volume] in Serum or Plasma 2024-11-18 18:20:12 40 pg/mL F 18.0-80.0 Parathyrin.intact [Mass/volume] in Serum or Plasma 2024-11-05 06:33:21 81 pg/mL F 18.0-80.0 CA CORRECTED 2024-11-05 04:02:14 8.5 mg/dL F CA/PHOS PRODUCT 2024-11-05 03:59:58 50.6 Calc F 21.0-53.0 CA*PO4 CORRCTD 2024-11-05 03:59:58 54.1 Calc F 21.0-53.0 Calcium [Mass/volume] in Serum or Plasma 2024-11-05 03:51:02 7.9 mg/dL F 8.7-10.4 Phosphate [Mass/volume] in Serum or Plasma 2024-11-05 02:35:20 6.4 mg/dL F 2.4-5.1 CA CORRECTED 2024-09-26 06:19:22 8.5 mg/dL F CA/PHOS PRODUCT 2024-09-26 06:17:20 45.8 Calc F 21.0-53.0 CA*PO4 CORRCTD 2024-09-26 06:17:20 49.1 Calc F 21.0-53.0 Phosphate [Mass/volume] in Serum or Plasma 2024-09-26 06:11:17 5.8 mg/dL F 2.4-5.1 Calcium [Mass/volume] in Serum or Plasma 2024-09-26 06:11:17 7.9 mg/dL F 8.7-10.4 Parathyrin.intact [Mass/volume] in Serum or Plasma 2024-09-25 22:11:11 F CANCELED - TEST CANCELED CA CORRECTED 2024-09-03 00:59:55 8.3 mg/dL F Calcium [Mass/volume] in Serum or Plasma 2024-09-03 00:46:17 8 mg/dL F 8.7-10.4 CA CORRECTED 2024-08-06 07:09:22 7.8 mg/dL F CA*PO4 CORRCTD 2024-08-06 07:06:55 57.9 Calc F 21.0-53.0 CA/PHOS PRODUCT 2024-08-06 07:06:55 55.5 Calc F 21.0-53.0 Phosphate [Mass/volume] in Serum or Plasma 2024-08-06 07:03:42 7.4 mg/dL F 2.4-5.1 Calcium [Mass/volume] in Serum or Plasma 2024-08-06 07:03:42 7.5 mg/dL F 8.7-10.4 25-Hydroxyvitamin D3+25-Hydroxyvitamin D2 [Mass/volume] in Serum or Plasma 2024-08-06 00:42:14 32.9 ng/mL F Parathyrin.intact [Mass/volume] in Serum or Plasma 2024-08-05 17:20:23 263 pg/mL F 18.0-80.0 CA CORRECTED 2024-07-09 09:16:52 7.7 mg/dL F CA/PHOS PRODUCT 2024-07-09 09:14:20 48.2 Calc F 21.0-53.0 CA*PO4 CORRCTD 2024-07-09 09:14:20 50.8 Calc F 21.0-53.0 Phosphate [Mass/volume] in Serum or Plasma 2024-07-09 07:01:53 6.6 mg/dL F 2.4-5.1 Calcium [Mass/volume] in Serum or Plasma 2024-07-09 07:01:53 7.3 mg/dL F 8.7-10.4 Parathyrin.intact [Mass/volume] in Serum or Plasma 2024-07-08 18:02:12 284 pg/mL F 18.0-80.0 25-Hydroxyvitamin D3+25-Hydroxyvitamin D2 [Mass/volume] in Serum or Plasma 2024-06-27 05:50:15 23.7 ng/mL F CA CORRECTED Phosphate [Mass/volume] in Serum or Plasma Calcium [Mass/volume] in Serum or Plasma CA*PO4 CORRCTD CA/PHOS PRODUCT Parathyrin.intact [Mass/volume] in Serum or Plasma Nutrition Description Draw Date Result/Unit Status Ref Range Result Comments Potassium [Moles/volume] in Serum or Plasma 2024-11-19 04:08:25 4.7 mEq/L F 3.5-5.5 Potassium [Moles/volume] in Serum or Plasma 2024-11-05 03:51:02 4.8 mEq/L F 3.5-5.5 Albumin [Mass/volume] in Serum or Plasma by Bromocresol green (BCG) dye binding method 2024-11-05 02:35:20 3.3 g/dL F 3.4-4.8 Potassium [Moles/volume] in Serum or Plasma 2024-09-30 23:37:50 4.6 mEq/L F 3.5-5.5 Bicarbonate [Moles/volume] in Serum or Plasma 2024-09-30 20:14:27 28 mEq/L F 20.0-31.0 Potassium [Moles/volume] in Serum or Plasma 2024-09-26 06:11:17 4.3 mEq/L F 3.5-5.5 Bicarbonate [Moles/volume] in Serum or Plasma 2024-09-25 22:37:18 25 mEq/L F 20.0-31.0 Albumin [Mass/volume] in Serum or Plasma by Bromocresol green (BCG) dye binding method 2024-09-25 22:37:18 3.3 g/dL F 3.4-4.8 Potassium [Moles/volume] in Serum or Plasma 2024-09-03 00:46:17 4.1 mEq/L F 3.5-5.5 Bicarbonate [Moles/volume] in Serum or Plasma 2024-09-02 17:03:20 26 mEq/L F 20.0-31.0 Potassium [Moles/volume] in Serum or Plasma 2024-08-06 07:03:42 4.5 mEq/L F 3.5-5.5 Bicarbonate [Moles/volume] in Serum or Plasma 2024-08-05 13:45:19 23 mEq/L F 20.0-31.0 Albumin [Mass/volume] in Serum or Plasma by Bromocresol green (BCG) dye binding method 2024-08-05 13:45:19 3.6 g/dL F 3.4-4.8 Potassium [Moles/volume] in Serum or Plasma 2024-07-09 07:01:53 3.1 mEq/L F 3.5-5.5 Bicarbonate [Moles/volume] in Serum or Plasma 2024-07-08 13:59:17 26 mEq/L F 20.0-31.0 Albumin [Mass/volume] in Serum or Plasma by Bromocresol green (BCG) dye binding method 2024-07-08 13:59:17 3.5 g/dL F 3.4-4.8 Folate [Mass/volume] in Serum or Plasma 2024-06-27 05:50:18 11 ng/mL F 5.5-16.0 Cobalamin (Vitamin B12) [Mass/volume] in Serum or Plasma 2024-06-27 05:50:16 694 pg/mL F 211.0-911.0 Potassium [Moles/volume] in Serum or Plasma 2024-06-27 00:44:53 4.8 mEq/L F 3.5-5.5 VLDL-CHOL(CALC) 2024-06-26 14:23:04 26 mg/dL F 0.0-29.0 LDL-CHOLESTEROL 2024-06-26 14:23:04 88 mg/dL F 0.0-99.0 CHOL/HDL RATIO 2024-06-26 14:23:04 2.5 Calc F 3.3-5.0 Cholesterol [Mass/volume] in Serum or Plasma 2024-06-26 14:22:15 189 mg/dL F 0.0-199.0 Protein [Mass/volume] in Serum or Plasma 2024-06-26 14:22:15 129 mg/dL F 0.0-149.0 Bicarbonate [Moles/volume] in Serum or Plasma 2024-06-26 14:22:15 27 mEq/L F 20.0-31.0 Albumin [Mass/volume] in Serum or Plasma by Bromocresol green (BCG) dye binding method 2024-06-26 14:22:15 3.6 g/dL F 3.4-4.8 Cholesterol in HDL [Mass/volume] in Serum or Plasma 2024-06-26 14:22:15 75 mg/dL F 40.0-60.0 Encounters No encounter information to report Immunizations Ordered Immunization Name Filled Immunization Name Date Status Comments Refusal Reason Hep B, adult 2024-10-03 10:12:27 Hep B, adult 2024-08-04 10:52:02 TST-PPD intradermal 2024-07-09 12:16:08 Hep B, adult 2024-07-07 11:49:11 TST-PPD intradermal 2024-06-25 12:05:48 Influenza Vaccination 2024-01-21 04:00:00 Pneumococcal conjugate PCV20, polysaccharide [id number] conjugate, adjuvant, PF 2024-01-07 04:00:00 Influenza Vaccination 2023-03-26 04:00:00 Pneumococcal Vaccination 2022-02-14 04:00:00 Covid-19 Vaccination 2021-09-06 04:00:00 Covid-19 Vaccination 2021-02-01 04:00:00 Covid-19 Vaccination 2020-08-03 05:00:00 Covid-19 Vaccination 2020-07-06 05:00:00 pneumococcal polysaccharide PPV23 2014-03-02 04:00:00 Tetanus Vaccination 2012-01-16 04:00:00 Plan of Treatment Planned Activity Provider Planned Date Details Commen ts Future Scheduled Test [facility] 2025-05-27 05:00:00 Aluminum [Mass/volume] in Serum or Plasma [code = 5574-9] Diagnostic Test Pending [facility] 2024-11-19 05:40:[address] [code = 2265] Diagnostic Test Pending [facility] 2024-11-19 05:40:14 Reticulocytes/100 erythrocytes in Blood by Automated count [code = 93009-4] Diagnostic Test Pending [facility] 2024-10-25 04:00:00 Sodium [Moles/volume] in Serum or Plasma [code = 2951-2] Diagnostic Test Pending [facility] 2024-10-25 04:00:00 Potassium [Moles/volume] in Serum or Plasma [code = 2823-3] Future Scheduled Test [facility] 2025-05-27 05:00:00 Cobalamin (Vitamin B12) [Mass/volume] in Serum or Plasma [code = 2132-9] Diagnostic Test Pending [facility] 2024-10-01 05:45:59 Hemoglobin [Mass/volume] in Blood [code = 718-7] Future Scheduled Test [facility] 2025-05-27 05:00:00 25-Hydroxyvitamin D3+25-Hydroxyvitamin D2 [Mass/volume] in Serum or Plasma [code = 23804-1] Diagnostic Test Pending [facility] 2024-10-25 04:00:00 Albumin [Mass/volume] in Serum or Plasma by Bromocresol green (BCG) dye binding method [code = 41690-1] Future Scheduled Test [facility] 2024-12-25 04:00:00 Ferritin [Mass/volume] in Serum or Plasma [code = 2276-4] Future Scheduled Test [facility] 2025-05-27 05:00:00 Folate [Mass/volume] in Serum or Plasma [code = 2284-8] Future Scheduled Test [facility] 2025-05-27 05:00:00 Alanine aminotransferase [Enzymatic activity/volume] in Serum or Plasma [code = 1742-6] Diagnostic Test Pending [facility] 2024-10-25 04:00:00 Parathyrin.intact [Mass/volume] in Serum or Plasma [code = 2731-8] Diagnostic Test Pending [facility] 2024-06-24 20:31:12 Hemoglobin A1c/Hemoglobin.total in Blood [code = 4548-4] Diagnostic Test Pending [facility] 2024-11-17 17:21:31 In-Center Hemodialysis Treatment [code = RSH003] Diet Order [facility] July 21, 2024 Diet Calorie 30 kcal/kg Fluid Value 1200 mL/d Phosphorus Value 1000 mg/d Potassium Value 2000 mg/d Protein Value 1.4 gm/kg Sodium Value 2000 mg/d Calculated Weight 65 kg dietary_diet_modification Carb Controlle d;
--- OUTSIDE RECORDS SUMMARY | 2024-11-24 18:03 | XMS_ITS | Encounter Summary ---
Author Organization [facility] ([place], [place], [place], [place]) Address [address] [place] [address] Care Team Providers Care Security Guard Supervisor Name Role Phone Unavailable Primary Care Provider Unavailabl e Encounter Details Date Type Department Care Team (Late st Contact Info) Description 12/17/2018 Transcribed Document [facility] [place] [facility] [place] [facility] [place] [address] ProviderBrianne MD [address] [place] [address] Social History Tobacco Use Types Packs/Day Years Used Date Smoking Tobacco: Never Assessed Sex and Gender Information Value Date Recorded Sex Assigned at Male 11/21/2021 1:59 PM CDT Legal Sex Male 1:59 PM CDT Gender Identity Male 11/21/2021 1:59 PM CDT Sexual Orientation Not on file documented as of this encounter Miscellaneous Notes * Cerner Conversion Note - Brianne ProviderMD - 12/17/2018 1:10 PM CDT PAT Adult Entered On: 12/17/2018 13:15 EDT Performed On: 12/17/2018 13:10 EDT by GUSTABO PITTMAN RN Vital Measurements Temperature Source : Temporal artery scanning Temperature, Fahrenheit : 97.7 Deg F Clinical Temperature, C : 36.5 Deg C Peripheral Pulse Rate : 63 bpm Respiratory Rate : 16 Breaths/Min Blood Pressure Location : Arm, right upper Blood Pressure Source : Non-Invasive BP Device Systolic Blood Pressure : 176 mmHg (HI) Diastolic Blood Pressure : 77 mmHg Oxygen Saturation : 100 % Oxygen Therapy Mode : Room air GUSTABO PITTMAN RN - 12/17/2018 13:10 EDT Pain Assessment Pain Scale Goal : 4 GUSTABO PITTMAN RN - 12/17/2018 13:10 EDT Height and Weight, Clinical Dosing Height Source : Measured Height Entry Format : [place] Height, Feet : 0 ft(Converted to: 0 cm, 0 Inch) Height, Inches : 71 Inch(Converted to: 5 ft 11 Inch, 180.34 cm) Clinical Height : 180.34 cm Weight Source : Standing scale Weight Entry Format : [place] Clinical Dosing Weight : 67.64 kg Weight, Pounds : 148.8 lb Body Surface Area (BSA) : 1.86 m2 Body Mass Index : 20.8 kg/m2 [place] Body Weight : 74 kg GUSTABO PITTMAN RN - 12/17/2018 13:10 EDT Health Histories Smoking Status : Never (less than 100 in lifetime; none in last 30 days) Smokeless Tobacco Status : Never GUSTABO PITTMAN RN - 12/17/2018 13:24 EDT Social History (As Of: 12/17/2018 13:34:04 EDT) Tobacco: Never (less than 100 in lifetime) Smoking Status. Never Smokeless Tobacco Status. (Last Updated: 11/12/2018 08:40:37 EDT by JAX MENDEZ RN) Alcohol: Alcohol Use History No. (Last Updated: 11/12/2018 08:40:43 EDT by JAX MENDEZ RN) Substance Abuse: Drug Use Hx: No. Use in Last 12 Months: No. (Last Updated: 11/12/2018 08:40:51 EDT by JAX MENDEZ RN) Home/Environment: Lives with Alone. Home equipment: Glucose monitoring. (Last Updated: 11/12/2018 08:41:45 EDT by JAX MENDEZ RN) Infectious Disease History Fever/Chills Last 48 Hours : No Whit Lamb RN - 01/07/2019 6:21 EDT Infectious Disease History : Chicken pox/Shingles, Influenza, Measles, Mumps Isolation Needed : Standard Travel To Regions with Travel Advisories : No Travel Outside [place] Within Last 30 Days : No Contact With Traveler to Advisory Region : No Tuberculosis Symptoms : None GUSTABO PITTMAN RN - 12/17/2018 13:24 EDT Anesthesia/Transfusion History Family History of Anesthesia Reaction : No prior transfusion(s) Transfusion History : Prior anesthesia without reaction Family History of Anesthesia Reaction : None GUSTABO PITTMAN RN - 12/17/2018 13:24 EDT Functional Assessment Functional ADL Evaluation Index EBN Bathing : Independent (2) Dressing : Independent (2) Toileting : Independent (2) Transferring Bed or Chair : Independent (2) Continence : Independent (2) Feeding : Independent (2) GUSTABO PITTMAN RN - 12/17/2018 13:41 EDT ADL Index Score : 12 GUSTABO PITTMAN RN - 12/17/2018 13:41 EDT Advance Directive Patient has Advance Directive *Q : Yes, Advance Directive not with the patient Family/Rep Contact Information : Julissa Diaz, daughter, cell Advance Directive Type : Living will Copy Advance Directive Verified/on Chart : Yes GUSTABO PITTMAN RN - 12/17/2018 13:41 EDT Spiritual/Cultural Needs Any Spiritual/Cultural Needs or Requests : No GUSTABO PITTMAN RN - 12/17/2018 13:41 EDT Psychosocial History Do You Have a History of the Following? : Patient denies history Currently in Unsafe Situation : No Tried to Harm Yourself in the Past? : No Thoughts of Harming/Killing Yourself : No GUSTABO PITTMAN RN - 12/17/2018 13:41 EDT Teaching/Learning Assessment Individuals Taught : Patient, Family member Readiness to Learn : Cooperative Readiness to Learn : Explanation, Printed materials GUSTABO PITTMAN RN - 12/17/2018 13:41 EDT Education Topics, Periop Preadmission Perioperative Education Grid Arrival Time/Place : Verbalizes understanding CHG Preoperative Bathing/Cloths : Verbalizes understanding Falls : Verbalizes understanding IV's : Verbalizes understanding NPO Status/Directions : Verbalizes understanding Pain Management : Verbalizes understanding Postoperative Care Preparations : Verbalizes understanding Preprocedure Preparations : Verbalizes understanding Preprocedure Tests/Labs : Verbalizes understanding Remove Body Piercings : Verbalizes understanding Responsible Adult : Verbalizes understanding Take/Hold Medications Pre-Procedure : Verbalizes understanding GUSTABO PITTMAN RN - 12/17/2018 13:24 EDT Responsible Adult Contact Information : Julissa Diaz, daughter, cell GUSTABO PITTMAN RN - 12/17/2018 13:24 EDT General Info Arrived From : Home Mode of Arrival on Unit : Ambulatory Legal Guardian : Daughter Legal Guardian : Yes Support Person/Patient Searchlight Operator : Yes Support Person/Pt Rep Name : deepak Tenorio Contact Password : bruce Support Person/Pt Rep Contact Information : [phone] cell Want Family/Rep/Phys Notified of Admit : No Emergency Contact #1 : Julissa Diaz Emergency Contact #1 cell Emergency Contact #1 Relationship : daughter Emergency Contact #2 : none Emergency Contact #2 Phone Number : none Emergency Contact #2 Relationship : none Information Obtained From : Patient Primary Language : Kuwaiti Preferred Communication Mode : Verbal Communication Barrier : None Objects to Sharing Info w Family : No GUSTABO PITTMAN RN - 12/17/2018 13:41 EDT Desmond Scale Desmond Sensory Perception : Slightly limited (Comment: hard of hearing, reading glasses [GUSTABO PITTMAN RN - 12/17/2018 13:41 EDT] ) Desmond Moisture : Occasionally moist Desmond Activity : Walks occasionally Desmond Mobility : Slightly limited Desmond Nutrition : Adequate Desmond Friction and Shear : Potential problem Desmond Score : 17 GUSTABO PITTMAN RN - 12/17/2018 13:41 EDT Sleep Apnea Risk Assmt Hx of Obstructive Sleep Apnea Diagnosis : No Snore Loudly : Yes Tired, Fatigued, or Sleepy During Day : No Observed Stopping Breathing During Sleep : No Have/Are Being Treated for Hypertension : Yes BMI Greater Than 35 kg/m2 : No Age over 50 Years Old : Yes Neck Circumference Greater Than 40 cm : No Gender Male : Yes STOP-BANG Sleep Apnea Risk Level Score : 4 GUSTABO PITTMAN RN - 12/17/2018 13:41 EDT Electronically signed by Victor Manuel Alcala Conversion [employer] Grade Reading Teacher Cerner at 09/14/2022 12:15 PM CDT documented in this encounter Plan of Treatment Not on file documented as of this encounter Visit Diagnoses Not on filedocumented in this encounter
--- OUTSIDE RECORDS SUMMARY | 2024-11-24 18:03 | XMS_ITS | Encounter Summary ---
Author Organization [facility] Address [address] [place] [address] Care Team Providers Care Rn Coronary Care Unit Name Role Phone Oz Ramos MD Primary Care Provider [phone] John Joseph MD Unavailable [phone] Cheyenne Mitchell CERTIFIED NURSING ATTENDANT, DNP Unavailable [phone] Nancy Mitchell LPN Unavailable Unavailable Encounter Details Date Type Department Care Team (Late Contact Info) Description 10/16/2020 Abstract [facility] [address], [address] [place] [address] Claus Gibbs MD [address] [place] [address] Social History Tobacco Use Types Packs/Day Years Used Date Smoking Tobacco: Never Sex and Gender Information Value Date Recorded Sex Assigned at Male 06/26/2024 2:30 PM EST Legal Sex Male 8:08 PM EDT Gender Identity Not on file Sexual Orientation Not on file documented as of this encounter Plan of Treatment Upcoming Encounters Date Type Department Care Team (Late Contact Info) Description 11/26/2024 10:00 AM EDT Office Visit [facility] [address] [place] [address] Carolee Gr MD [address] [place] [address] 05/03/2025 8:00 AM EST Appointment [facility] Ultrasound [address] [place] [address] 2025 1:00 PM EST Office Visit [facility] [address], [address]rd [place] [address] Rudy Andersen MD [address] [place] [address] 05/13/2025 8:10 AM EST Office Visit [facility] Urology [address], [address] [place] [address] Cheyenne Mitchell APRN, DNP [address] [facility] [place] [address] documented as of this encounter Visit Diagnoses Not on filedocumented in this encounter Additional Health Concerns Infection Onset Date Last Indicated Resolved Time COVID-19 Rule-Out 05/28/2024 05/28/2024 05/29/2024 12:31 AM EST Respiratory Rule-Out 05/28/2024 05/28/2024 025 1:23 AM EST documented as of this encounter Care Teams Rn Coronary Care Unit Relationship Specialty Start Date End Date Oz Ramos MD [address] [place] [address] [address] [place] [address] PCP - General 10/07/20 John Joseph MD [address] [facility] [address] [place] [address] Consulting Physician Urology 02/04/23 Cheyenne Mitchell APRN, DNP [address] [place] [address] Nurse Practitioner Urology 05/13/24 Nancy Mitchell LPN TCM Nurse 06/25/24 07/24/24 documented as of this encounter
--- OUTSIDE RECORDS SUMMARY | 2024-11-24 18:03 | XMS_ITS | Encounter Summary ---
Author Organization [facility] Address [address] [place] [address] Care Team Providers Care Asset Protection Lead Name Role Phone Oz Ramos MD Primary Care Provider [phone] John Joseph MD Unavailable [phone] Cheyenne Mitchell APRN, DNP Unavailable [phone] Encounter Details Date Type Department Care Team (Late st Contact Info) Description 09/28/2024 Telephone [facility] [address] [place] [address] Rashmi Paige Social History Tobacco Use Types Packs/Day Years [...] any time in the past 12 [facility], were you homeless or living in a fci (including now)? No 06/19/2024 CAGE ASSESSMENT Answer [...] drink first t jeff in the morning (EYE-FILLER BLOCK INSERTER REMOVER) to steady your nerves or to get [...] Description 11/26/2024 10:00 AM EDT Office Visit [facility] [address] [place] [address] Carolee Gr MD [address] [place] [address] 05/03/2025 8:00 AM EST Appointment [facility] Ultrasound [address] [place] [address] 2025 1:00 PM EST Office Visit [facility] Otolaryngology [address], [address] [place] [address] Rudy Andersen MD [address] [place] [address] 05/13/2025 8:10 AM EST Office Visit [facility] Urology [address], [address] [place] [address] Cheyenne Mitchell, CLINICAL ENGINEERING MANAGER, DNP [address] [place] [address] documented as of this encounter [...] documented as of this encounter Care Teams Asset Protection Lead Relationship Specialty Start Date End Date Oz Ramos MD [address] [place] [address] [address]1 [address] [place] [address] PCP - General 10/07/20 John Joseph MD [address] [place] [address] Consulting Physician Urology 02/04/23 Cheyenne Mitchell APRN, DNP [address] [place] [address] Nurse Practitioner Urology 05/13/24 documented as of this encounter
--- OUTSIDE RECORDS SUMMARY | 2024-11-24 18:03 | XMS_ITS | Encounter Summary ---
Author Organization [facility] Address [address] [place] [address] Care Team Providers Care Building Construction Contractor Name Role Phone Oz Ramos MD Primary Care Provider [phone] John Jospeh MD Unavailable [phone] Cheyenne Mitchell APRN, DEVI Unavailable [phone] Encounter Details Date Type Department Care Team (Latest Contact Info) Description 09/25/2024 Travel Social History Tobacco Use Types Packs/Day Years [...] any time in the past 12 m [facility], were you homeless or living in a [...] drink first t jeff in the morning (EYE-DIRECTOR TALENT MANAGEMENT) to steady your nerves or to get [...] Description 11/26/2024 10:00 AM EDT Office Visit [facility] Comprehensive Vascular Clinic [address] [facility] 5th Floor Wing [address], [address] [place] [address] Carolee Gr MD [address] [facility] [address] [place] [address] 05/03/2025 8:00 AM EST Appointment [facility] Ultrasound [address], 2nd [place] [address] 2025 1:00 PM EST Office Visit [facility] Otolaryngology [address], 3rd [place] [address] Rudy Andersen MD [address] [facility] [address] [place] [address] 05/13/2025 8:10 AM EST Office Visit [facility] Urology [address], 2nd [place] [address] Cheyenne Mitchell, BREWING DIRECTOR, DNP [address] [facility] [address] [place] [address] documented as of this encounter [...] documented as of this encounter Care Teams Building Construction Contractor Relationship Specialty Start Date End Date Oz Ramos MD [address] [place] [address] [address] [place] [address] PCP - General 10/07/20 John Joseph MD [address] [place] [address] Consulting Physician Urology 02/04/23 Cheyenne Mitchell, ELIZABETH, DNP [address] [place] [address] Nurse Practitioner Urology 05/13/24 documented as of this encounter
--- OUTSIDE RECORDS SUMMARY | 2024-11-24 18:03 | XMS_ITS | Encounter Summary ---
Author Organization [facility] Address [address] [place] [address] Care Team Providers Care Forensic Chemist Name Role Phone Oz Ramos MD Primary Care Provider [phone] John Joseph MD Unavailable [phone] Cheyenne Mitchell APRN, DEVI Unavailable [phone] Encounter Details Date Type Department Care Team (Latest Contact Info) Description 10/07/2024 Travel Social History Tobacco Use Types Packs/Day [...] were you homeless or living in a half-way (including now)? No 06/19/2024 CAGE ASSESSMENT Answer [...] drink first t jeff in the morning (EYE-ROULETTE DEALER) to steady your nerves or to get [...] Salmeron RN documented as of this encounter Plan of Treatment Upcoming Encounters Date Type Department Care Team (Late st Contact Info) Description 11/26/2024 10:00 AM EDT Office Visit [facility] Clinic [address] [facility] 5th Floor Wing D, [address] [place] [address] Carolee Gr MD [address] [facility] [address] [place] [address] 05/03/2025 8:00 AM EST Appointment [facility] Ultrasound [address], 2nd [place] [address] 2025 1:00 PM EST Office Visit [facility] Otolaryngology [address], 3rd [place] [address] Rudy Andersen MD [address] [place] [address] 05/13/2025 8:10 AM EST Office Visit [facility] Urology [address], 2nd [place] [address] Cheyenne Mitchell, LENGTH CONTROL TESTER, DNP [address] [place] [address] documented as of this encounter [...] documented as of this encounter Care Teams Forensic Chemist Relationship Specialty Start Date End Date Oz Ramos MD [address] [place] [address] [address] [place] [address] PCP - General 10/07/20 John Joseph MD [address] [address] Consulting Physician Urology 02/04/23 Cheyenne Mitchell, ELIZABETH, DNP [address] [facility] [address] [place] [address] Nurse Practitioner Urology 05/13/24 documented as of this encounter
--- OUTSIDE RECORDS SUMMARY | 2024-11-24 18:03 | XMS_ITS | Encounter Summary ---
Author Organization [employer] ([place], [place], [place], [place]) Address [address] [place] [address] Care Team Providers Care Title Insurance Sales Representative Name Role Phone Unavailable Primary Care Provider Unavailabl e Encounter Details Date Type Department Care Team (Late st Contact Info) Description 12/23/2018 Transcribed Document [facility] [place] [facility] [address] ProviderBrianne MD [address], [place] [id number] Social History Tobacco Use Types Packs/Day Years Used Date Smoking Tobacco: Never Assessed Sex and Gender Information Value Date Recorded Sex Assigned at Male 11/21/2021 1:59 PM CDT Legal Sex Male 1:59 PM CDT Gender Identity Male 11/21/2021 1:59 PM CDT Sexual Orientation Not on file documented as of this encounter Miscellaneous Notes * Cerner Conversion Note - Brianne Kim MD - 12/23/2018 12:21 PM CDT Total Joints Assessment Entered On: 12/23/2018 12:22 EDT Performed On: 12/23/2018 12:21 EDT by Tiara Mccallum Rn-Navigator JR. ELIO Hip Survey 1. Going up or down stairs : Extreme 2. Walking on an uneven surface : Severe 3. Rising from sitting : Mild 4. Bending to floor/lemon picker an object : Severe 5. Lying in bed (turning over, maintaining hip position) : Mild 6. Sitting : Moderate ELIO PERAZA Raw Score (ref) : 14 Tiara Mccallum Rn-Milaator - 12/23/2018 12:21 EDT PROMIS Global Health Scale In general, would you say your health is: : Good In general, would you say your quality of life is: : Poor In general, how would you rate your physical health? : Fair In general, how would you rate your mental health, including your mood and your ability to think? : Good In general, how would you rate your satisfaction with your social activities and relationships? : Poor In general, please rate how well you carry out your usual social activities and roles. (This includes activities at home, at work and in your community, and responsibilities as a parent, child, spouse, employee, friend, etc.) : Fair To what extent are you able to carry out your everyday physical activities such as walking, climbing stairs, carrying groceries, or moving a chair? : A little How often have you been bothered by emotional problems such as feeling anxious, depressed or irritable? : Rarely How would you rate your fatigue on average? : Moderate How would you rate your pain on average? : 7 Global Physical Health Score (ref) : 9 Global Mental Health Score (ref) : 9 Tiara Mccallum Rn-Navigator - 12/23/2018 12:21 EDT documented in this encounter Plan of Treatment Not on file documented as of this encounter Visit Diagnoses Not on filedocumented in this encounter
--- OUTSIDE RECORDS SUMMARY | 2024-11-24 18:03 | XMS_ITS | Encounter Summary ---
Author Organization [facility] Address [address] [place] [address] Care Team Providers Care Studio Couch Frame Builder Name Role Phone Oz Ramos MD Primary Care Provider [phone] John Joseph MD Unavailable [phone] Cheyenne Mitchell APRN, DEVI Unavailable [phone] Encounter Details Date Type Department Care Team (Late st Contact Info) Description 09/28/2024 Telephone Vascular Surgery [address] [place] [address] Ariel Gonzalez, RN [facility] Social History Tobacco Use Types Packs/Day Years [...] in the past 12 m [facility], were you homeless or living in a custodial (including now)? No 06/19/2024 CAGE ASSESSMENT Answer [...] drink first t jeff in the morning (EYE-RING ATTACHER) to steady your nerves or to get [...] as of this encounter Miscellaneous Notes * Nursing Note - Ariel Gonzalez RN - 09/28/2024 10:36 AM EDT Spoke to the patient's daughter today and she had emailed pictures of a knot on his arm close to the incision. Dr. Gr said there is no concern. He had a hematoma post-op and we can see him at his previously scheduled appointment. I called the daughter back and left a voicemail. documented in this encounter Plan of Treatment Upcoming Encounters Date Type Department Care Team (Late st Contact Info) Description 11/26/2024 10:00 AM EDT Office Visit [facility] Comprehensive Vascular Clinic [address] [facility] 5th Floor Wing [address], [address] [place] [address] Carolee Gr MD [address] [facility] [address] [place] [address] 05/03/2025 8:00 AM EST Appointment [facility] Ultrasound [address], 2nd [place] [address] 2025 1:00 PM EST Office Visit [facility] Otolaryngology [address], 3rd [place] [address] Ruyd Andersen MD [address] [facility] [address] [place] [address] 05/13/2025 8:10 AM EST Office Visit [facility] Urology [address], 2nd [place] [address] Cheyenne Mitchell, ORACLE TECHNICAL ARCHITECT, DNP [address] [place] [address] documented as of this encounter Visit Diagnoses [...] documented as of this encounter Care Teams Studio Couch Frame Builder Relationship Specialty Start Date End Date Oz Ramos MD [address] [place] [address] [address] [place] [address] PCP - General 10/07/20 John Joseph MD [address] [place] [address] Consulting Physician Urology 02/04/23 Cheyenne Mitchell, ORACLE TECHNICAL ARCHITECT, DNP [address] [place] [address] Nurse Practitioner Urology 05/13/24 documented as of this encounter
--- OUTSIDE RECORDS SUMMARY | 2024-11-24 18:03 | XMS_ITS | Encounter Summary ---
Author Organization [facility] Address [address] [place] [address] Care Team Providers Care Testing And Regulating Chief Name Role Phone Oz Ramos MD Primary Care Provider [phone] John Joseph MD Unavailable [phone] Cheyenne Mitchell APRN, DEVI Unavailable [phone] Encounter Details Date Type Department Care Team (Latest Contact Info) Description 10/09/2024 Travel Social History Tobacco Use Types Packs/Day [...] any time in the past 12 m [facility], were you homeless or living in a [...] drink first t jeff in the morning (EYE-ARCHITECT IN TRAINING) to steady your nerves or to get [...] Description 11/26/2024 10:00 AM EDT Office Visit [facility] Comprehensive Vascular Clinic [address] [facility] 5th Floor Wing D, [address] [place] [address] Carolee Gr MD [address] [facility] [address] [place] [address] 05/03/2025 8:00 AM EST Appointment [facility] Ultrasound [address], 2nd [place] [address] 2025 1:00 PM EST Office Visit [facility] Otolaryngology [address], 3rd [place] [address] Rudy Andersen MD [address] [facility] [address] [place] [address] 05/13/2025 8:10 AM EST Office Visit [facility] Urology [address], 2nd [place] [address] Cheyenne Mitchell, EMERGENCY PLANNING AND RESPONSE MANAGER, DNP [address] [facility] [address] [place] [address] documented as of this encounter [...] documented as of this encounter Care Teams Testing And Regulating Chief Relationship Specialty Start Date End Date Oz Ramos MD [address] [place] [address] [address] [place] [address] PCP - General 10/07/20 John Joseph MD [address] [place] [address] Consulting Physician Urology 02/04/23 Cheyenne Mitchell, ELIZABETH, DNP [address] [place] [address] Nurse Practitioner Urology 05/13/24 documented as of this encounter
--- OUTSIDE RECORDS SUMMARY | 2024-11-24 18:03 | XMS_ITS | Encounter Summary ---
Author Organization [facility] Address [address] [place] [address] Care Team Providers Care Oil Heaterman Name Role Phone Oz Ramos MD Primary Care Provider [phone] John Joseph MD Unavailable [phone] Cheyenne Mitchell PATTERNMAKER GRADER, DNP Unavailable [phone] Nancy Mitchell LPN Unavailable Unavailable Reason for Visit * Reason Comments Med Refill Encounter Details Date Type Department Care Team (Late Contact Info) Description 01/07/2022 Refill Professional [facility] Center Nephrology, Bone & Mineral Metabolism [address] [facility], [address] [place] [address] Claus Gibbs MD [address] [place] [address] Social History Tobacco Use Types Packs/Day Years Used Date Smoking Tobacco: Never Smokeless Tobacco: Never Alcohol Use Standard Drinks/Week Comments Never 0 (1 standard drink = 0.6 oz pur e alcohol) PHQ-2 Answer Date Recorded Patient Health Questionnaire-2 Score 0 09/18/2021 Sex and Gender Information Value Date Recorded Sex Assigned at Male 06/26/2024 2:30 PM EST Legal Sex Male 8:08 PM EDT Gender Identity Not on file Sexual Orientation Not on file documented as of this encounter Plan of Treatment Upcoming Encounters Date Type Department Care Team (Late Contact Info) Description 11/26/2024 10:00 AM EDT Office Visit [facility] Comprehensive Vascular Clinic [address] [facility] 5th Floor [address], [address] [place] [address] Carolee Gr MD [address] [facility] [address] [place] [address] 05/03/2025 8:00 AM EST Appointment [facility] Ultrasound [address], 2nd [place] [address] 2025 1:00 PM EST Office Visit [facility] Otolaryngology [address], 3rd [place] [address] Rudy Andersen MD [address] [facility] [address] [place] [address] 05/13/2025 8:10 AM EST Office Visit [facility] Urology [address], 2nd [place] [address] Cheyenne Mitchell, PATTERNMAKER GRADER, DNP [address] [facility] [address] [place] [address] documented as of this encounter Visit Diagnoses Not on filedocumented in this encounter Additional Health Concerns Infection Onset Date Last Indicated Resolved Time COVID-19 Rule-Out 05/28/2024 05/28/2024 05/29/2024 12:31 AM EST Respiratory Rule-Out 05/28/2024 05/28/2024 025 1:23 AM EST Assessment Noted Time A fall risk assessment has been complete d for the patient 12/06/2021 1:23 PM EDT documented as of this encounter Care Teams Oil Heaterman Relationship Specialty Start Date End Date Oz Ramos MD [address] [place] [address] [address] [place] [address] PCP - General 10/07/20 John Joseph MD [address] [place] [address] Consulting Physician Urology 02/04/23 Cheyenne Mitchell, ELIZABETH, DNP [address] [place] [address] Nurse Practitioner Urology 05/13/24 Nancy Mitchell CHAINSTITCH FELLED SEAM OPERATOR TCM Nurse 06/25/24 07/24/24 documented as of this encounter
--- OUTSIDE RECORDS SUMMARY | 2024-11-24 18:04 | XMS_ITS | Encounter Summary ---
Author Organization [facility] Address [address] [place] [address] Care Team Providers Care C Software Developer Name Role Phone Oz Ramos MD Primary Care Provider [phone] John Joseph MD Unavailable [phone] Cheyenne Mitchell APRN, DEVI Unavailable [phone] Encounter Details Date Type Department Care Team (Latest Contact Info) Description 11/17/2024 Travel Social History Tobacco Use Types Packs/Day [...] any time in the past 12 m [facility], were you homeless or living [...] drink first t jeff in the morning (EYE-ACCOUNTING PROFESSOR) to steady your nerves or to get [...] and Clinic Comprehensive Vascular Clinic [address] [facility] 5th Floor [address], [address] [place] [address] Carolee Gr MD [address] [facility] [address] [place] [address] 05/03/2025 8:00 AM EST Appointment [facility] Ultrasound [address], 2nd [place] [address] 2025 1:00 PM EST Office Visit [facility] Otolaryngology [address], 3rd [place] [address] Rudy Andersen MD [address] [facility] [address] [place] [address] 05/13/2025 8:10 AM EST Office Visit [facility] Urology [address], 2nd [place] [address] Cheyenne Mitchell, LACE ROLLER, DNP [address] [facility] [address] [place] [address] documented as of this encounter [...] documented as of this encounter Care Teams C Software Developer Relationship Specialty Start Date End Date Oz Ramos MD [address] [place] [address] [address] [place] [address] PCP - General 10/07/20 John Joseph MD [address] [place] [address] Consulting Physician Urology 02/04/23 Cheyenne Mitchell, ELIZABETH, DNP [address] [place] [address] Nurse Practitioner Urology 05/13/24 documented as of this encounter
--- OUTSIDE RECORDS SUMMARY | 2024-11-24 18:04 | XMS_ITS | Encounter Summary ---
Author Organization [employer] ([place], [place], [place], [place]) Address [address] [place] [address] Care Team Providers Care Accounts Payable Administrator Name Role Phone Unavailable Primary Care Provider Unavailabl e Encounter Details Date Type Department Care Team (Late st Contact Info) Description 11/29/2018 Transcribed Document [facility] Family Medicine [address] [place] [address] ProviderBrianne MD [address] [place], [place] [id number] Social History Tobacco Use Types Packs/Day Years Used Date Smoking Tobacco: Never Assessed Sex and Gender Information Value Date Recorded Sex Assigned at Male 11/21/2021 1:59 PM CDT Legal Sex Male 1:59 PM CDT Gender Identity Male 11/21/2021 1:59 PM CDT Sexual Orientation Not on file documented as of this encounter Miscellaneous Notes * Cerner Conversion Note - Historical ProviderMD - 11/29/2018 2:00 AM CDT Tax Appraiser Details Entered On: 11/29/2018 1:55 EDT Performed On: 11/29/2018 2:00 EDT by JORGE ALBERTO DURAN RN Order Details Transport Mode Order Detail : Stretcher/Gurney Isolation Precautions Order Detail : Standard Precautions Order Detail : N/A IV Order Detail : 1 Oxygen Order Detail : 0 Nurse Collect Order Detail : 1 Lift/Transfer : Minimal Central Line Order Detail : No Room Service : Appropriate Arterial Line : No JORGE ALBERTO DURAN RN - 11/29/2018 1:55 EDT documented in this encounter Plan of Treatment Not on file documented as of this encounter Visit Diagnoses Not on filedocumented in this encounter
--- OUTSIDE RECORDS SUMMARY | 2024-11-24 18:04 | XMS_ITS | Encounter Summary ---
Author Organization [employer] ([place], [place], [place], [place]) Address [address] [place] [address] Care Team Providers Care Gas Flow Regulator Name Role Phone Unavailable Primary Care Provider Unavailabl e Encounter Details Date Type Department Care Team (Late st Contact Info) Description 11/28/2018 Transcribed Document [facility] Family Medicine [facility] [place] [address] ProviderBrianne MD [address] [place] [id number] Social History Tobacco Use Types Packs/Day Years Used Date Smoking Tobacco: Never Assessed Sex and Gender Information Value Date Recorded Sex Assigned at Male 11/21/2021 1:59 PM CDT Legal Sex Male 1:59 PM CDT Gender Identity Male 11/21/2021 1:59 PM CDT Sexual Orientation Not on file documented as of this encounter Miscellaneous Notes * Cerner Conversion Note - Historical ProviderMD - 11/28/2018 11:59 AM CDT Consult Phone Call Documentation Entered On: 11/28/2018 15:55 EDT Performed On: 11/28/2018 11:59 EDT by Kamila Wynn Warehouse Administrative Assistant-Health Unit Coord Phone Call for Consults Consult Phone Call/Page Attempt : First call Consult, Additional Information : Kamila Wynn Care Asst-Health Unit Coord - 11/28/2018 15:50 EDT documented in this encounter Plan of Treatment Not on file documented as of this encounter Visit Diagnoses Not on filedocumented in this encounter
--- OUTSIDE RECORDS SUMMARY | 2024-11-24 18:04 | XMS_ITS | Encounter Summary ---
Author Organization [facility] Address [address] [place] [address] Care Team Providers Care Legal Collector Name Role Phone Oz Ramos MD Primary Care Provider [phone] John Joseph MD Unavailable [phone] Cheyenne Mitchell APRN, DEVI Unavailable [phone] Encounter Details Date Type Department Care Team (Latest Contact Info) Description 10/12/2024 Travel Social History Tobacco Use Types Packs/Day [...] any time in the past 12 m [facility], were you homeless or living in [...] drink first t jeff in the morning (EYE-SPEED OPERATOR) to steady your nerves or to [...] Description 11/26/2024 10:00 AM EDT Office Visit [facility] Comprehensive Vascular Clinic [address] [facility] 5th Floor [address], [address] [place] [address] Carolee Gr MD [address] [facility] [address] [place] [address] 05/03/2025 8:00 AM EST Appointment [facility] Ultrasound [address], 2nd [place] [address] 2025 1:00 PM EST Office Visit [facility] Otolaryngology [address], 3rd [place] [address] Rudy Andersen MD [address] [facility] [address] [place] [address] 05/13/2025 8:10 AM EST Office Visit [facility] Urology [address], 2nd [place] [address] Cheyenne Mitchell, COMMERCIAL TECHNICIAN, DNP [address] [facility] [address] [place] [address] documented as of this encounter [...] documented as of this encounter Care Teams Legal Collector Relationship Specialty Start Date End Date Oz Ramos MD [address] [place] [address] [address] [place] [address] PCP - General 10/07/20 John Joseph MD [address] [place] [address] Consulting Physician Urology 02/04/23 Cheyenne Mitchell, ELIZABETH, DNP [address] [place] [address] Nurse Practitioner Urology 05/13/24 documented as of this encounter
--- OUTSIDE RECORDS SUMMARY | 2024-11-24 18:04 | XMS_ITS | Encounter Summary ---
Author Organization [employer] ([place], [place], [place], [place]) Address [address] [place] [address] Care Team Providers Care Sandwich Board Carrier Name Role Phone Unavailable Primary Care Provider Unavailabl e Encounter Details Date Type Department Care Team (Late st Contact Info) Description 11/28/2018 Transcribed Document [facility] [address] [place] [id number] Ashvin Irby MD [address] [place] [address] Social History Tobacco Use Types Packs/Day Years Used Date Smoking Tobacco: Never Assessed Sex and Gender Information Value Date Recorded Sex Assigned at Male 11/21/2021 1:59 PM CDT Legal Sex Male 1:59 PM CDT Gender Identity Male 11/21/2021 1:59 PM CDT Sexual Orientation Not on file documented as of this encounter Miscellaneous Notes * Cerner Conversion Note - Ashvin Irby MD - 11/28/2018 3:24 PM EDT Patient: NADER TOLENTINO Age: 78 Years Sex: Male : 1940 Indication for Surgery high grade left carotid stenosis *Preoperative Diagnosis high grade left carotid stenosis *Postoperative Diagnosis same *Surgeon(s) Dr. Irby *Estimated Blood Loss none *Findings xact 6-8X 30 herlinda 6 filter no neurologic changes. Complications none Date of Service No qualifying data available. documented in this encounter Plan of Treatment Not on file documented as of this encounter Visit Diagnoses Not on filedocumented in this encounter
--- OUTSIDE RECORDS SUMMARY | 2024-11-24 18:04 | XMS_ITS | Encounter Summary ---
Author Organization [employer] ([place], [place], [place], [place]) Address [address] [place] [address] Care Team Providers Care Medical Laboratory Specialist Name Role Phone Unavailable Primary Care Provider Unavailabl e Encounter Details Date Type Department Care Team (Late st Contact Info) Description 11/28/2018 Transcribed Document [facility] [place] Family Medicine [facility] [place] [address] ProviderBrianne MD [address] [place] [id number] Social History Tobacco Use Types Packs/Day Years Used Date Smoking Tobacco: Never Assessed Sex and Gender Information Value Date Recorded Sex Assigned at Male 11/21/2021 1:59 PM CDT Legal Sex Male 1:59 PM CDT Gender Identity Male 11/21/2021 1:59 PM CDT Sexual Orientation Not on file documented as of this encounter Miscellaneous Notes * Cerner Conversion Note - Brianne ProviderMD - 11/28/2018 12:34 PM CDT Pre Procedure Adult Entered On: 11/28/2018 12:39 EDT Performed On: 11/28/2018 12:34 EDT by MARICRUZ RODRIGUEZ RN Height and Weight, Clinical Dosing Height Source : Measured Height Entry Format : [place] Height, Feet : 5 ft(Converted to: 152 cm, 60 Inch) Height, Inches : 11 Inch(Converted to: 0 ft 11 Inch, 27.94 cm) Clinical Height : 180.34 cm Weight Source : Standing scale Weight Entry Format : [place] Clinical Dosing Weight : 68.18 kg Weight, Pounds : 150 lb Body Surface Area (BSA) : 1.87 m2 Body Mass Index : 21 kg/m2 [place] Body Weight : 74 kg MARICRUZ RODRIGUEZ RN - 11/28/2018 12:34 EDT Health Histories Smoking Status : Never (less than 100 in lifetime; none in last 30 days) Smokeless Tobacco Status : Never MARICRUZ RODRIGUEZ RN - 11/28/2018 12:34 EDT Social History (As Of: 11/28/2018 12:39:15 EDT) Tobacco: Never (less than 100 in [...] by JAX MENDEZ RN) Infectious Disease History Infectious Disease History : Chicken pox/Shingles, Influenza, Measles, Mumps Fever/Chills Last 48 Hours : No Travel To Regions with Travel Advisories : No Travel Outside [place] Within Last 30 Days : No Contact With Traveler to Advisory Region : No Tuberculosis Symptoms : Bloody Sputum MARICRUZ RODRIGUEZ RN - 11/28/2018 12:34 EDT Anesthesia/Transfusion History Family History of Anesthesia Reaction : No prior transfusion(s) Transfusion History : Prior anesthesia without reaction Family History of Anesthesia Reaction : None MARICRUZ RODRIGUEZ RN - 11/28/2018 12:34 EDT Functional Assessment Living Situation : Home Patient Lives With : Alone Current Home Treatments : Blood glucose monitoring, Other: blood pressure checks MARICRUZ RODRIGUEZ RN - 11/28/2018 12:34 EDT Psychosocial History Do You Have a History of the Following? : Patient denies history Currently in Unsafe Situation : No Tried to Harm Yourself in the Past? : No Thoughts of Harming/Killing Yourself : No MARICRUZ RODRIGUEZ RN - 11/28/2018 12:34 EDT Advance Directive Patient has Advance Directive *Q : Yes, Advance Directive not with the patient Advance Directive Type : Living will Copy Advance Directive Verified/on Chart : No MARICRUZ RODRIGUEZ RN - 11/28/2018 12:34 EDT General Info Want Family/Rep/Phys Notified of Admit : No Emergency Contact #1 : Julissa Emergency Contact #1 Phone Number : jaycob Emergency Contact #1 Relationship : [phone] Emergency Contact #2 : none Emergency Contact #2 Phone Number : none Emergency Contact #2 Relationship : none Primary Language : Citizen [place] Communication Barrier : None MARICRUZ RODRIGUEZ RN - 11/28/2018 12:34 EDT Sleep Apnea Risk Assmt Hx of [...] Sleep Apnea Risk Level Score : 4 MARICRUZ RODRIGUEZ RN - 11/28/2018 12:34 EDT Desmond Scale Desmond Sensory Perception : No impairment Desmond Moisture : Rarely moist Desmond Activity : Walks frequently Desmond Mobility : No limitation Desmond Nutrition : Probably inadequate Desmond Friction and Shear : No apparent problem Desmond Score : 21 MARICRUZ RODRIGUEZ RN - 11/28/2018 12:34 EDT Fall Risk Scales ABCs Fall Injury Risk Identification : Age, Bones, Coagulation ABC Fall Injury Risk : Moderate to high injury risk FLORES Hx Falls Immediate/Within 3 Months : No Flores Secondary Diagnosis : No FLORES Use of Ambulatory Aid : None FLORES IV Therapy or IV Access : Yes Flores Gait/Transferring : Normal, bedrest, immobile Flores Mental Status : Oriented to own ability Flores Fall Risk Score : 20 FLORES Fall Scale Risk Level : 0-24 Low Risk [place] Fall Interventions : Adequate lighting, Assistive devices within reach, Bed in low position, Call device within reach, Fall prevention handout/education per facility policy, Hourly comfort/safety rounds, Non-slip footwear, Personal items within reach, Reinforced to call for assistance before getting out of bed, Room free of clutter/spills, Upper side-rails up, Wheels locked, Wires/Cords secured MARICRUZ RODRIGUEZ RN - 11/28/2018 12:34 EDT Valuables and Belongings Valuables and Belongings : Clothing Clothing : Common streetwear Clothing Disposition : Bedside MARICRUZ RODRIGUEZ RN - 11/28/2018 12:34 EDT Electronically signed by Victor Manuel Alcala Conversion Optical Glass Inspector Cerner at 09/14/2022 12:20 PM CDT documented in this encounter Plan of Treatment Not on file documented as of this encounter Visit Diagnoses Not on filedocumented in this encounter
--- OUTSIDE RECORDS SUMMARY | 2024-11-24 18:04 | XMS_ITS | Encounter Summary ---
Author Organization [facility] Address [address] [id number] Care Team Providers Care Signal Maintainer Name Role Phone Oz Ramos MD Primary Care Provider [phone] John Joseph MD Unavailable [phone] Cheyenne Mitchell APRN, DEVI Unavailable [phone] Encounter Details Date Type Department Care Team (Late st Contact Info) Description 11/11/2024 Telephone [facility] [address] [place] [address] Pascale Everett [address] [address] Social History Tobacco Use Types Packs/Day Years [...] any time in the past 12 m [facility], were you homeless or living in a long term (including now)? 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 Noted ESRD. Attempted to reach pt/daughter via phone; non-urgent voice message left for pt to return call r/t nutrition. Sent written materials r/t IDDSI diet 4 and 6 per TRANSITIONAL STUDIES INSTRUCTOR recommendations. RD avail prn in clinic. Wt Readings from Last 5 Encounters: 10/30/24 59.1 kg (130 lb 4.7 oz) 10/22/24 57.6 kg (127 lb) 10/07/24 58.4 kg (128 lb 12 oz) 09/24/24 59.4 kg (131 lb) 08/26/24 64 kg (141 lb 1.5 oz) Ht Readings from Last 1 Encounters: 10/30/24 1.803 m (5' 11 ) BMI Readings from Last 1 Encounters: 10/30/24 18.17 kg/m?? Current Medications[1] 1415: spoke with daughter and discussed RD avail when time is more convenient as daughter will be taking pt to ED for bloody stool as advised. Will remain avail outpatient prn. [1] Current Outpatient Medications: acetaminophen (Tylenol) 160 MG/5ML liquid, Take 20.3 mL by mouth every 4 hours as needed for moderate pain., Disp: 120 mL, Rfl: 2 aspirin 81 MG EC tablet, Take 1 tablet by mouth daily., Disp: , Rfl: atorvastatin (Lipitor) 20 MG tablet, Take 1 tablet by mouth nightly., Disp: , Rfl: B complex-vitamin C-folic acid (Nephro-Jose J) 0.8 MG tablet, Take 1 tablet by mouth daily., Disp: 90tablet, Rfl: 3 calcitriol (Rocaltrol) 0.25 MCG capsule, Take 1 capsule (0.25 mcg) by mouth daily., Disp: 90 capsule, Rfl: 3 calcium acetate (Phoslo) 667 MG capsule, Take 1 capsule (667 mg) by mouth in the morning and 1 capsule (667 mg) at noon and 1 capsule (667 mg) in the evening. Take with meals., Disp: 180 capsule, Rfl: 1 carvedilol (Coreg) 25 MG tablet, Take 1 tablet by mouth 2 times a day., Disp: , Rfl: clopidogrel (Plavix) 75 MG tablet, Take 1 tablet by mouth nightly., Disp: , Rfl: ferrous sulfate 324 (65 Fe) MG EC tablet, Take 2 tablets by mouth daily with breakfast. Do not crush, chew, or split., Disp: , Rfl: ipratropium (Atrovent) 0.06 % nasal spray, Administer 2 sprays into each nostril 3 times a day as needed., Disp: , Rfl: levothyroxine (Synthroid, Levoxyl) 100 MCG tablet, Take 1 tablet by mouth daily before breakfast., Disp: , Rfl: NIFEdipine CC (Adalat CC) 60 MG 24 hr tablet, Take 1 tablet (60 mg) by mouth daily before breakfast. Do not crush, chew, or split. (Patient not taking: Reported on 10/30/2024), Disp: 30 tablet, Rfl: 0 NIFEdipine CC (Adalat CC) 60 MG 24 hr tablet, TAKE 1 TABLET BY MOUTH DAILY BEFORE BREAKFAST DO NOT CRUSH, CHEW, OR SPIT., Disp: 90 tablet, Rfl: 3 omeprazole (PriLOSEC) [address] capsule, Take 1 capsule by mouth nightly., Disp: , Rfl: PreviDent 5000 Booster Plus 1.1 % paste, APPLY A THIN RIBBON TO THE TOOTHBRUSH AND BRUSH THOROUGHLYONCE DAILY, Disp: , Rfl: valsartan (Diovan) 160 MG tablet, Take 1 tablet (160 mg) by mouth 1 (one) time each day. (Patient taking differently: Take 1 tablet by mouth daily. Held this AM), Disp: 30 tablet, Rfl: 0 documented in this encounter Plan of Treatment Upcoming Encounters Date Type Department Care Team (Late st Contact Info) Description 11/26/2024 10:00 AM EDT Office Visit [facility] [address]th Floor [address] [place] [address] Carolee Gr MD [address] [place] [address] 05/03/2025 8:00 AM EST Appointment [facility] Ultrasound [address] [place] [address] 2025 1:00 PM EST Office Visit [facility] Ot[facility] [address], [address]rd [place] [address] Rudy Andersen MD [address] [facility] [address] [place] [address] 05/13/2025 8:10 AM EST Office Visit [facility] Urology [address] [place] [address] Cheyenne Mitchell P, CONCRETE RUBBER, DNP [address] [place] [address] documented as of this encounter [...] documented as of this encounter Care Teams Signal Maintainer Relationship Specialty Start Date End Date Oz Ramos MD [address] [place] [address] [address]1 [address] [place] [address] PCP - General 10/07/20 John Joseph MD [address] [place] [address] Consulting Physician Urology 02/04/23 Cheyenne Mitchell, CONCRETE RUBBER, DNP [id number] [place] [id number] Nurse Practitioner Urology 05/13/24 documented as of this encounter
--- OUTSIDE RECORDS SUMMARY | 2024-11-24 18:04 | XMS_ITS | Encounter Summary ---
Author Organization [facility] Address [address] [place] [address] Care Team Providers Care Consulting Sales Manager Name Role Phone Oz Ramos MD Primary Care Provider [phone] John Joseph MD Unavailable [phone] Cheyenne Mitchell APRN, DEVI Unavailable [phone] Encounter Details Date Type Department Care Team (Latest Contact Info) Description 11/06/2024 Travel Social History Tobacco Use Types Packs/Day [...] any time in the past 12 m [facility], were you homeless or [...] drink first t jeff in the morning (EYE-EQUIPMENT SERVICE ENGINEER) to steady your nerves or to get [...] Description 11/26/2024 10:00 AM EDT Office Visit [facility] [address] [facility] 5th Floor [address] [place] [address] Carolee Gr MD [address] [facility] [address] [place] [address] 05/03/2025 8:[address] [facility] Ultrasound [address] [place] [address] 2025 1:00 PM EST Office Visit [facility] Otolaryngology [address], [address]rd [place] [address] Rudy Andersen MD [address] [facility] [address] [place] [address] 05/13/2025 8:10 AM EST Office Visit [facility] Urology [address], [address] [place] [address] Cheyenne Mitchell, INDUSTRIAL DIAMOND POLISHER, DNP [address] [place] [address] documented as of this encounter [...] documented as of this encounter Care Teams Consulting Sales Manager Relationship Specialty Start Date End Date Oz Ramos MD [address] [place] [address] [address]1 [address] [place] [address] PCP - General 10/07/20 John Joseph MD [address] [place] [address] Consulting Physician Urology 02/04/23 Cheyenne Mitchell, ELIZABETH, DNP [address] [place] [address] Nurse Practitioner Urology 05/13/24 documented as of this encounter
--- OUTSIDE RECORDS SUMMARY | 2024-11-24 18:04 | XMS_ITS | Encounter Summary ---
Author Organization [employer] ([place], [place], [place], [place]) Address [address] [place] [address] Care Team Providers Care Senior Benefits Manager Name Role Phone Unavailable Primary Care Provider Unavailabl e Encounter Details Date Type Department Care Team (Late st Contact Info) Description 11/28/2018 Transcribed Document [facility] [place] [address] ProviderBrianne MD [facility] [place] [id number] Social History Tobacco Use Types Packs/Day Years Used Date Smoking Tobacco: Never Assessed Sex and Gender Information Value Date Recorded Sex Assigned at Male 11/21/2021 1:59 PM CDT Legal Sex Male 1:59 PM CDT Gender Identity Male 11/21/2021 1:59 PM CDT Sexual Orientation Not on file documented as of this encounter Miscellaneous Notes * Cerner Conversion Note - Brianne ProviderMD - 11/28/2018 11:03 AM CDT Admission History, Adult Entered On: 11/28/2018 14:59 EDT Performed On: 11/28/2018 11:03 EDT by SEBASTIAN HUFF Rn Advance Directive Patient has Advance Directive *Q : Yes, Advance Directive not with the patient Advance Directive Type : Living will Copy Advance Directive Verified/on Chart : No SEBASTIAN HUFF Rn - 11/28/2018 14:58 EDT Anesthesia/Transfusion History Family History of Anesthesia Reaction : No prior transfusion(s) Transfusion History : Prior anesthesia without reaction Family History of Anesthesia Reaction : None SEBASTIAN HUFF Rn - 11/28/2018 14:58 EDT Functional Assessment Living Situation : Home Patient Lives With : Alone FLORES Hx Falls Immediate/Within 3 Months : No Current Home Treatments : Blood glucose monitoring, Other: blood pressure checks SEBASTIAN HUFF Rn - 11/28/2018 14:58 EDT General Info Want Family/Rep/Phys Notified of Admit : No Emergency Contact #1 : Julissa Emergency Contact #1 Phone Number : jaycob Emergency Contact #1 Relationship : [phone] Emergency Contact #2 : none Emergency Contact #2 Phone Number : none Emergency Contact #2 Relationship : none Primary Language : [place] Communication Barrier : None SEBASTIAN HUFF Rn - 11/28/2018 14:58 EDT Fall Risk Scales ABCs Fall Injury Risk Identification : Age, Coagulation ABC Fall Injury Risk : Moderate to high injury risk FLORES Hx Falls Immediate/Within 3 Months : No Flores Secondary Diagnosis : Yes FLORES Use of Ambulatory Aid : Bed rest/Nurse assist FLORES IV Therapy or IV Access : Yes Flores Gait/Transferring : Normal, bedrest, immobile Flores Mental Status : Oriented to own ability Flores Fall Risk Score : 35 FLORES Fall Scale Risk Level : 25-45 Medium Risk [place] Fall Interventions : Adequate lighting, Personal items within reach, Reinforced to call for assistance before getting out of bed SEBASTIAN HUFF Rn - 11/28/2018 14:58 EDT Health Histories Smoking Status : Never (less than 100 in lifetime; none in last 30 days) Smokeless Tobacco Status : Never SEBASTIAN HUFF Rn - 11/28/2018 14:58 EDT Social History (As Of: 11/28/2018 14:59:47 EDT) Tobacco: Never (less than 100 in lifetime) Smoking Status. Never Smokeless Tobacco Status. (Last Updated: 11/12/2018 08:40:37 EDT by JAX MENDEZ, RN) Alcohol: Alcohol Use History No. (Last Updated: 11/12/2018 08:40:43 EDT by AJX MENDEZ, RN) Substance Abuse: Drug Use Hx: No. Use in Last 12 Months: No. (Last Updated: 11/12/2018 08:40:51 EDT by JAX MENDEZ, RN) Home/Environment: Lives with Alone. Home equipment: Glucose monitoring. (Last Updated: 11/12/2018 08:41:45 EDT by JAX MENDEZ, RN) Height and Weight, Clinical Dosing Height Source : Measured Height Entry Format : [place] Height, Feet : 5 ft(Converted to: 152 cm, 60 Inch) Height, Inches : 11 Inch(Converted to: 0 ft 11 Inch, 27.94 cm) Clinical Height : 180.34 cm Weight Source : Standing scale Weight Entry Format : [place] Clinical Dosing Weight : 68.18 kg Weight, Pounds : 150 lb Body Surface Area (BSA) : 1.87 m2 Body Mass Index : 21 kg/m2 [place] Body Weight : 74 kg SEBASTIAN HUFF Rn - 11/28/2018 14:58 EDT Infectious Disease History Infectious Disease History : Chicken pox/Shingles, Influenza, Measles, Mumps Fever/Chills Last 48 Hours : No Travel To Regions with Travel Advisories : No Travel Outside [place] Within Last 30 Days : No Contact With Traveler to Advisory Region : No Tuberculosis Symptoms : Bloody Sputum SEBASTIAN HUFF Rn - 11/28/2018 14:58 EDT Influenza Vaccine Asmt, Adult Previous Vaccines from Immunization Schedule : No qualifying data available. Influenza Immunization, Current Season : Yes SEBASTIAN HUFF Rn - 11/28/2018 14:58 EDT Pneumococcal Vaccine Previous Vaccines from Immunization Schedule : No qualifying data available. Pneumonia Immunization Received : Yes SEBASTIAN HUFF Rn - 11/28/2018 14:58 EDT Nutrition History Eating Poorly Due to Decreased Appetite : No Unplanned Weight Loss in Past 3-6 Months : No Malnutrition Screening Tool Total(mal) : 0 Malnutrition Screening Tool Risk Level : Patient not at risk SEBASTIAN HUFF Rn - 11/28/2018 14:58 EDT Psychosocial History Do You Have a History of the Following? : Patient denies history Currently in Unsafe Situation : No Tried to Harm Yourself in the Past? : No Thoughts of Harming/Killing Yourself : No SEBASTIAN HUFF Rn - 11/28/2018 14:58 EDT Sleep Apnea Risk Assmt Hx of [...] Sleep Apnea Risk Level Score : 4 SEBASTIAN HUFF Rn - 11/28/2018 14:58 EDT Valuables and Belongings Valuables and Belongings : Clothing Clothing : Common streetwear Clothing Disposition : Bedside SEBASTIAN HUFF Rn - 11/28/2018 14:58 EDT Electronically signed by Victor Manuel Alcala Conversion Electrolysis Needle Operator Cerner at 09/14/2022 12:14 PM CDT documented in this encounter Plan of Treatment Not on file documented as of this encounter Visit Diagnoses Not on filedocumented in this encounter
--- OUTSIDE RECORDS SUMMARY | 2024-11-24 18:04 | XMS_ITS | Encounter Summary ---
Author Organization [facility] Address [address] [place] [address] Care Team Providers Care Home Builder Name Role Phone Oz Ramos MD Primary Care Provider [phone] John Joseph MD Unavailable [phone] Cheyenne Mitchell APRN, DEVI Unavailable [phone] Encounter Details Date Type Department Care Team (Latest Contact Info) Description 10/30/2024 Travel Social History Tobacco Use Types Packs/Day [...] any time in the past 12 m [facility], were you homeless or living in a detention (including now)? 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 Question Answer Date of Assessment Author Little interest or pleasure in doing things Not at all 10/30/2024 10:22 AM Tom Connell a Feeling down, depressed, or hopeless Not at all 10/30/2024 10:22 AM Tom Connell a Patient Health Questionnaire -2 Score 0 10/30/2024 10:22 AM AMAURYT Tom Scott a * Question Answer Date of Assessment Author Trouble falling or staying asleep, or sleeping too much Several days 10/30/2024 10:22 AM Tom Connell a Feeling tired or having little energy Not at all 10/30/2024 10:22 AM Tom Connell a Poor appetite or overeating Nearly every day 10:22 AM Tom Connella Feeling bad about yourself - or that you are a failure or have let yourself or your family down Not at all 10/30/2024 10:22 AM Tom Connell a Trouble concentrating on things, such as reading the newspaper or watching television Not at all 10/30/2024 10:22 AM Tom Connell a Moving or speaking so slowly that other people could have noticed? Or the opposite - being so fidgety or restless that you have been moving around a lot more than usual. Not at all 10/30/2024 10:22 AM Tom Connell a Thoughts that you would be better off or hurting yourself in some way Not at all 10/30/2024 10:22 AM Amado Connell Patient Health Questionnaire-9 Score 4 10/30/2024 10:22 AM Rosita Connell iia * If you checked off any problems on this questionnaire so far, Question Answer Date of Assessment Author How difficult have these problems made it for you to do your work, take care of things at home, or get along with other people? Not difficult at all 10/30/2024 10:22 AM Amado Connell ia * How difficult have these problems made it for you to do your work, take care of things at home, or get along with other people? Answer Date of Assessment Author Not difficult at all 10/30/2024 10:22 AM EDT Berna Garcia documented as of this encounter Plan of Treatment Upcoming Encounters Date Type Department Care Team (Late st Contact Info) Description 11/26/2024 10:00 AM EDT Office Visit [facility] [address] [place] [address] Carolee Gr MD [address] [facility] [address] [place] [address] 05/03/2025 8:00 AM EST Appointment [facility] Ultrasound [address] [place] [address] 2025 1:00 PM EST Office Visit [facility] Otolaryngology [address] [place] [address] Rudy Andersen MD [address] [place] [address] 05/13/2025 8:10 AM EST Office Visit [facility] Urology [address] [place] [address] Cheyenne Mitchell, FINANCE OFFICER, DNP [address] [place] [address] documented as of this encounter [...] documented as of this encounter Care Teams Home Builder Relationship Specialty Start Date End Date Oz Ramos MD [address] [place] [address] [address]1 [address] [place] [address] PCP - General 10/07/20 John Joseph MD [address] [facility] [address] [place] [address] Consulting Physician Urology 02/04/23 Cheyenne Mitchell, ELIZABETH, DNP [address] [place] [address] Nurse Practitioner Urology 05/13/24 documented as of this encounter
--- OUTSIDE RECORDS SUMMARY | 2024-11-24 18:04 | XMS_ITS | Encounter Summary ---
Author Organization [employer] ([place], [place], [place], [place]) Address [address] [place] [address] Care Team Providers Care Green Pipefitter Name Role Phone Unavailable Primary Care Provider Unavailabl e Encounter Details Date Type Department Care Team (Late st Contact Info) Description 12/01/2018 Transcribed Document [facility] [place] [facility] [place] [address] ProviderBrianne MD [address] [place], [place] [id number] Social History Tobacco Use Types Packs/Day Years Used Date Smoking Tobacco: Never Assessed Sex and Gender Information Value Date Recorded Sex Assigned at Male 11/21/2021 1:59 PM CDT Legal Sex Male 1:59 PM CDT Gender Identity Male 11/21/2021 1:59 PM CDT Sexual Orientation Not on file documented as of this encounter Miscellaneous Notes * Cerner Conversion Note - Historical ProviderMD - 12/01/2018 10:49 AM CDT UM Authorization Entered On: 12/01/2018 10:49 EDT Performed On: 12/01/2018 10:49 EDT by Krista Sheldon Rn-Utilization Review Primary Insurance Authorization Authorization and Policy Numbers : Insurance 1 Health Plan: MEDICARE Policy Number: [id number] Authorization Number: Insurance 2 Health Plan: AARP N Policy Number: [id number] Authorization Number: Insurance Primary Name : MEDICARE Authorized Service Begin Date-Primary : 11/30/2018 EDT Historical Authorization Comments-Primary : No Authorization Comments Found Krista Sheldon Rn-Utilization Review - 12/01/2018 10:49 EDT Electronically signed by Victor Manuel Alcala Conversion Order Make Up Clerk Cermarian at 09/13/2022 4:37 PM CDT documented in this encounter Plan of Treatment Not on file documented as of this encounter Visit Diagnoses Not on filedocumented in this encounter
--- OUTSIDE RECORDS SUMMARY | 2024-11-24 18:04 | XMS_ITS | Encounter Summary ---
Author Organization [facility] Address [address] 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 [place] [address] 2025 1:00 PM EST Office Visit [facility] Otolaryngology [address], 3rd [place] [address] Rudy Andersen MD [address] [place] [address] 05/13/2025 8:10 AM EST Office Visit [facility] Urology [address], 2nd [place] [address] Cheyenne Mitchell, MEDICAL OPERATIONS SUPERVISOR, DNP [address] [facility] [address] [place] [address] documented as of this encounter [...] documented as of this encounter Care Teams Forming Department End Finder Relationship Specialty Start Date End Date Oz Ramos MD [address] [place] [address] [address] [place] [address] PCP - General 10/07/20 John Joseph MD [address] [place] [address] Consulting Physician Urology 02/04/23 Cheyenne Mitchell, ELIZABETH, DNP [address] [place] [address] Nurse Practitioner Urology 05/13/24 documented as of this encounter
--- OUTSIDE RECORDS SUMMARY | 2024-11-24 18:04 | XMS_ITS | Encounter Summary ---
Author Organization Healthcare Address [address] [place] [address] Care Team Providers Care Etcher Aircraft Name Role Phone Oz Ramos MD Primary Care Provider [phone] John Joseph MD Unavailable [phone] Cheyenne Mitchell APRN, DEVI Unavailable [phone] Encounter Details Date Type Department Care Team (Late st Contact Info) Description 10/12/2024 Results [facility] [address] [place] [address] Ruben Ramsay MD [address] [place] [address] Social History Tobacco Use Types [...] you homeless or living in a senior living (including now)? 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 0 06/18/2024 CAGE Questionnaire Score 0 025 Utilities Answer Date Recorded In the past 12 months has th e [employer], gas, oil, or water company threatened to [...] as of this encounter Miscellaneous Notes * Result Encounter Note - Ruben Ramsay MD - 10/12/2024 2:02 PM EDT Renal ultrasound with bilateral simple renal cysts. No evidence of renal mass. I recommend following with periodic ultrasounds, and if there is ultrasound evidence of a solid renal mass then a CT renal mass protocol will be recommended PLAN: Keep scheduled appt for renal ultrasound and followup visit in April 2025 documented in this encounter Plan of Treatment Upcoming Encounters Date Type Department Care Team (Late st Contact Info) Description 11/26/2024 10:00 AM EDT Office Visit [facility] [address] 5[address] Floor [address] [place] [address] Carolee Gr MD [address] [place] [address] 05/03/2025 8:00 AM EST Appointment [facility] Ultrasound [address] [place] [address] 2025 1:00 PM EST Office Visit [facility] Otolaryngology [address], [address] [place] [address] Rudy Andersen MD [address] [place] [address] 05/13/2025 8:10 AM EST Office Visit [facility] Urology [address], [address] [place] [address] Cheyenne Mitchell APRN, DNP [address] [place] [address] documented as of this encounter [...] documented as of this encounter Care Teams Etcher Aircraft Relationship Specialty Start Date End Date Oz Ramos MD [address] [place] [address] [address] [place] [address] PCP - General 10/07/20 John Joseph MD [address] [place] [address] Consulting Physician Urology 02/04/23 Cheyenne Mitchell APRN, DNP [address] [place] [address] Nurse Practitioner Urology 05/13/24 documented as of this encounter
--- OUTSIDE RECORDS SUMMARY | 2024-11-24 18:04 | XMS_ITS | Encounter Summary ---
Author Organization [employer] ([place], [place], [place], [place]) Address [address] [place] [address] Care Team Providers Care Production Helper Name Role Phone Unavailable Primary Care Provider Unavailabl e Encounter Details Date Type Department Care Team (Late st Contact Info) Description 12/01/2018 Transcribed Document [facility] [place] [facility] [place] [address] ProviderBrianne MD [address] [place] [id number] Social History Tobacco Use Types Packs/Day Years Used Date Smoking Tobacco: Never Assessed Sex and Gender Information Value Date Recorded Sex Assigned at Male 11/21/2021 1:59 PM CDT Legal Sex Male 1:59 PM CDT Gender Identity Male 11/21/2021 1:59 PM CDT Sexual Orientation Not on file documented as of this encounter Miscellaneous Notes * Cerner Conversion Note - Brianne Kim MD - 12/01/2018 2:27 PM CDT DATE OF CONSULTATION: 12/01/2018 REFERRING PHYSICIAN: Danitza Rollins M.D. HISTORY OF PRESENT ILLNESS: Nader Briggs is a 78-year-old white male with multiple stroke risk factors including diabetes, hypertension, previous TIAs and who just three days ago, here at our hospital, underwent a left carotid artery stent placement for a stenotic left carotid artery. The patient was admitted to our hospital yesterday through the emergency room for some confusion and encephalopathy at home. I have been asked to evaluate him for the encephalopathy. The following history is obtained from reviewing the chart as well speaking to the patient and the patient's daughter, both of whom are excellent historians. The patient's daughter tells me that the patient first had a TIA back in 2013 when the patient had a transient episode of confusion and at that time, he was started on Plavix and he remains on Plavix. The patient's daughter tells me that the patient follows up periodically with the outpatient neurologist, Dr. Moscoso at [facility] for his history of TIAs. Also several years ago, the patient was found to have bilateral carotid stenoses and therefore every year, he [facility] carotid ultrasound just to follow up on his carotid artery stenoses. The patient was in his usual state of mixed health when on June 17 of this year, the patient called his daughter, stating that he was having trouble seeing out of one of his eyes and when the daughter went to check on him, she found him confused and having difficulty using objects. She took him to his local emergency room where his symptoms improved, but he was told he had another TIA and he had aspirin added to his Plavix. The patient's daughter tells me, over the last few months, the patient has had to make frequent trips to his primary care physician's office because of hard to control blood pressure. Apparently, at times, his blood pressure will be too high and at other times, will be too low. He has had to have clonidine added to his medical regimen for hard to control high blood pressure. Also this spring, the patient was scheduled to have a hip replacement for arthritis, but when he went for his prescreening exam, his blood pressure was found to be high with a systolic pressure of 208. Additionally, a screening carotid ultrasound earlier this spring showed that his carotid artery stenosis on the left side was getting worse and therefore, his vascular surgeon recommended a CTA of the neck to further evaluate his carotid arteries. This was done on November 12 as an outpatient and the result of this suggested 60% stenosis at the left carotid bulb. The patient has a history of neck cancer on his left side for which he received radiation and therefore, it was felt that he was not a candidate for carotid endarterectomy and therefore, he was admitted to our hospital last week on November 28 to undergo a left carotid stent placement. He underwent this stent placement. The daughter tells me that on November 29, which is a day after his stent placement, she found the patient to be confused and he was having trouble eating as he was having trouble locating his food on the tray and much of the food ended up on his lap. According to the discharge summary, the patient's blood pressure was too high transiently after his procedure and then on November 29, it was transiently too low and he had to have his Coreg dose decreased. The patient was transferred home yesterday on November 30. When the patient got home, the daughter noticed that he was still confused and was having trouble locating a trash can and manipulating a trash can. She also noticed that after he took a shower, he had trouble putting his clothes on and was trying to put his shirt on over his legs. She had to dress him and brought him back here. She says she checked his blood pressure at home yesterday, it was 93/58. She says, here he is back pretty much to normal. He has not had any more confusion. He has walked some with physical therapy. He apparently did eat without difficulty. CURRENT MEDICATIONS: Here in the hospital include: 1. Aspirin. 2. Lipitor. 3. Coreg. 4. Vitamin D. 5. Plavix. 6. Vitamin B12 pills. 7. Glimepiride. 8. Subcu heparin. 9. Sliding scale insulin. 10. Levothyroxine. 11. Lisinopril. 12. Multivitamins. 13. Pantoprazole. 14. Hydralazine p.r.n. ALLERGIES: NSAIDs. MEDICATIONS AT HOME: According to a computerized home medication list may or may not have included: 1. [place]-3. 2. Vitamin B12 pills. 3. Vitamin D. 4. Aspirin. 5. Simvastatin. 6. Levothyroxine. 7. Plavix. 8. Omeprazole. 9. Glimepiride. 10. Coreg. 11. Lisinopril. 12. Clonidine. 13. Vitamin B. 14. Ubiquinone. PAST MEDICAL HISTORY: 1. No smoking. 2. No alcohol use. 3. No illicit drug use. 4. He has had prostate cancer and had prostate surgery for this. 5. In 1997, he had an unknown type of neck cancer that was treated with surgery and radiation, but no chemotherapy. 6. He has had knee surgery. 7. He has had shoulder surgery. 8. He has had cataract surgery. 9. He has had kidney stones. 10. TIAs-see above. 11. Diabetes. 12. Hard to control hypertension. 13. He has arthritis and when things are stable, he is scheduled to have a hip replacement at some point in time. 14. Left carotid artery stent placement three days ago-see above. SOCIAL HISTORY: The patient lives in [place]. He is . He has two children. He does not to drive. He usually walks independently. He is retired. FAMILY HISTORY: His father from complications of rheumatoid arthritis. His mother from complications of cancer. REVIEW OF SYSTEMS: GENERAL: He has not had any fevers. EYES: He denies any visual changes. EARS: He has decreased hearing chronically. CARDIAC: He denies any chest pain. RESPIRATORY: He denies any shortness of breath. GI: He denies any changes in his bowel habits. : He denies any changes in his urinary habits. SKIN: He denies any rashes. MUSCULAR: He denies any muscle aches or pains. NEUROLOGIC: He denies any headaches. PSYCHIATRIC: He denies any depression. ENDOCRINE: He does have diabetes. HEMATOLOGIC: He denies any history of blood transfusions. PHYSICAL EXAMINATION: GENERAL: He is a well-developed male, in no acute distress, resting comfortably in bed. VITAL SIGNS: His blood pressure currently is 171/74, pulse is 57, he is afebrile. HEART: Regular rate and rhythm. LUNGS: Clear. NECK: Supple without any bruits. NEUROLOGIC: An ophthalmologic exam was done and his pupils react equal to light, but I could not see his disc. Motor exam shows 5/5 strength in both arms and legs. His tone in both arms and legs is normal. He is alert and oriented x3. He has good recent and remote recall. His attention span and concentration are normal. Language skills are normal and fund of knowledge is adequate. Cranial nerves 2-12 were intact. Coordination shows intact [id number] and [id number]. Gait was not tested. Reflexes were 0 to 1+. I detected no neglect. LABORATORY DATA: The patient had CTA of his head and neck yesterday in the emergency room that shows ulcerated plaque in the common carotid arteries bilaterally, but no significant stenosis. Note was made that the stent in the left ICA was patent. The patient has had a chest x-ray that was normal. The patient's serologies showed last night in the emergency room, his creatinine was 1.7, but is improved to 1.2 today. His sodium is 145, potassium is 4.1. His white count is 6.0, hematocrit is 35.2, platelet count is 143. TSH is normal at 0.77. The patient is on a heart monitor. ASSESSMENT: Nader Briggs is a 78-year-old male with multiple stroke risk factors including transient ischemic attacks in the past, diabetes, hypertension and who is three days status post a left carotid artery stent placement for carotid artery stenosis in the setting of a previous history of left neck radiation. The patient was discharged from our hospital yesterday morning two days after undergoing a left carotid stent placement, but was readmitted when his family noticed that he was confused and sounds as if he was having some apraxia at home. The differential for his encephalopathy could include one or a combination of the followin. Cerebrovascular disease. 2. Low-flow state. 3. Hypertensive encephalopathy. 4. Manifestations of low blood pressure that his daughter noted at home. 5. Seizures. 6. Migraines. 7. Functional disorder. 8. Hypoglycemia. 9. Cerebral mass lesion. At this time, I do not know the exact etiology of his symptoms and there are multiple potential causes. However, since a transient ischemic attack is in the differential, I am going to recommend that we go ahead and initiate the stroke order sets. RECOMMENDATIONS: I am also going to recommend the followin. I agree with subcu heparin for DVT prevention. 2. MRI of the brain. 3. At discharge, he should follow up with his outpatient neurologist and be instructed not to drive until released by a physician. 4. Use the stroke order sets. 5. A fasting lipid profile. 6. I agree with antiplatelet agents. 7. He should be made n.p.o. until he passes a swallowing study. 8. I would not order an echocardiogram at this time, but one could be ordered if the other tests warrant an echocardiogram. 9. Heart monitor and if this showed atrial fibrillation, to consider anticoagulating the patient. TIME SPENT: Of note, I have spent over 80 minutes on this case today. Over half that time was spent reviewing the chart and counseling the patient. Abundio Doss M.D. Dict: 12/01/2018 14:27:03 Trans: 12/01/2018 20:45:50 CC1: Abundio Doss M.D. documented in this encounter Plan of Treatment Not on file documented as of this encounter Visit Diagnoses Not on filedocumented in this encounter
--- OUTSIDE RECORDS SUMMARY | 2024-11-24 18:04 | XMS_ITS | Data Portability ---
Author Organization [facility] ALEXI Rodriguez LUPTON CLOSED Address [address] [place] [address] Care Team Providers Care Game Design Instructor Name Role Phone JOHANNY RAMOS Referring Provider JOHANNY RAMOS Primary Care Provider DALIA BARBER Neuropsychology Service Director Assessment No assessment recorded. Plan of Treatment Reminders Order Date Submit Date Provider Last Modified By Organization Details Last Modified Time Details Appointments FOLLOW UP DAK 2025 08:10A M DALIA BARBRE PA-C Not available Not available Not available Lab surgical patholog y study 2024 025 [facility], [address] [place] [address], [phone], 09/14/2024 11:44:20 Referral None recorded . Procedures None recorded . Surgeries None recorded . Imaging None recorded . Medication Orders ipratrop ium bromide 42 mcg (0.06 %) nasal spray 2023 024 [id number], [address], [id number], 08/13/2023 09:58:39 Patient TargetsNo targets recorded. Patient Instructions Encounter Date Encounter Id Patient Instructions Last Modified By Organization Details Last Modified Time 08/13/2023 [id number] 1. Bilateral cerumenectomy performed in office today. Full risks, complications, and benefits of non-operative intervention have been thoroughly discussed. Understanding was expressed, informed consent given, and we will proceed with the discussed treatment plan. There were no questions for me at the end of the office visit. 2. Begin new Rx- Ipratropium nasal spray one spray in each nostril TID 3. Recommend pt increase meals to 3 meals per day 4. Continue daily hearing aid amplification 5. Recommend pt F/u with Dermatology for likely basal cell carcinoma 6. F/u in one year [facility] Not available 08/13/2023 09:40:49 07/21/2024 [id number] 1. Bilateral cerumenectomy performed in office today. Full risks, complications, and benefits of non-operative intervention have been thoroughly discussed. Understanding was expressed, informed consent given, and we will proceed with the discussed treatment plan. There were no questions for me at the end of the office visit. 2. Suggest patient administer sweet/olive oil to bilateral ears to help with cerumen impaction. 3.Continue daily hearing aid amplification 4. Reviewed [facility] records to include EGD op note and Barium swallow exam 5. Recommend GI second opinion ,referral made 6. Consider feeding tube as an alternative option 7. Recommend nutritonal drink BID 8. F/u in 1 year [facility] Not available 07/21/2024 14:01:55 Reason for Referral None Reported. Results Created Date Observation Date Name Description Value Unit Range Abnormal Flag Note LastModifiedBy Organization Detail LastModifiedTime 09/11/1909/10/2024 SURGI ZACH surgical SEE BELOW abnormal Katherine topat holog y Repor t NAME: ANNE LANDERS TT PATH: [id number] PROCE DURE DATE: 09/10 SIGNO UT DATE: 09/14 Copy to: Diagn osis: Left poste rior cheek - BASAL CELL CARCI NOMA Comme nt: The deep wali n is invol geneva with tumor . AJCC: T1, Nx, Mx SOURC E OF SPECI MEN: SKIN, L POST CHEEK CLINI ZACH INFOR MATIO N: R/O: SCC. Gross Descr iptio n: The speci men consi sted of a chapman fragm ent which was trise cted and measu red 10 x 9 x 2 mm. All submi tted in one casse tte. Micro scopi c Descr iptio n: Nests and aggre an of immat ure basal oid epith elial cells with perip heral palis ading are prese nt in the dermi s. TERESE CARL MD Sunshine d Out Date: 09/14 11:44 1 Not Available [facility] [address] [place], [address], 09/14/2024 11:44:20 Result Notes None recorded. Problems Name Problem SNOMED Code Status Onset Date Resolution Date Notes Provider Name and Address Organization Details Recorded Time Hyperlipi demia 79343406 Active 2015 From Automated Load;Provi mayra: Karolina Moscoso;Stat us: Active Not Available [facility] 6 04:13:14 Squamous cell carcinoma of skin 261472102 Active 2014 From Automated Load;Provi mayra: Avtar Valenzuela;St atus: Active Karen Anatoliy [facility] 13:57:55 Impacted cerumen 71369715 Active 2014 From Automated Load;Provi mayra: Avtar Valenzuela;St atus: Active Karen Anatoliy [facility] 13:57:55 Sensorine ural hearing loss 13357788 Active 2014 Provider: Avtar Valenzuela;St atus: Active Karen Cope [facility] 13:57:55 Sensorine ural hearing loss of bilateral ears 273031721 Active 2014 From Automated Load;Provi mayra: Avtar Valenzuela;St atus: Active Karen Cope [facility] 13:57:55 Cerebrova scular disease 54358735 Active 2015 From Automated Load;Provi mayra: Karolina Moscoso;Stat us: Active Karen Cope [facility] 13:57:55 Hypertens dirk disorder 30071629 Active 2015 From Automated Load;Provi mayra: Karolina Moscoso;Stat us: Active Not Available [facility] 6 04:13:14 Disorder of nervous system due to type 2 diabetes mellitus 537863634 Active 2015 From Automated Load;Provi mayra: Karolina Moscoso;Stat us: Active Karen nix, [facility] 13:57:55 Problem Notes None recorded. Procedures Surgical History Date Name Laterality Status Provider Name and Address Organization Details Recorded Time 11/24/19 25 DAK - Cryo [place] active Massiel Hamagata [place] - [facility] 11/23/2024 08:46:30 11/24/19 25 Blade Biopsy w/ ED&C active Massiel Josephagata [place] - [facility] 11/23/2024 08:57:03 11/24/19 25 Blade Biopsy active Massiel Hamagata [place] [facility] 11/23/2024 08:51:34 11/24/19 25 Destruction BN Lesions active Massiel Hamagata [facility] 11/23/2024 08:43:36 09/11/19 25 DAK - Cryo AK completed Diana Mitchell [facility] 09/10/2024 11:24:31 09/11/19 25 Blade Biopsy completed Diana Mitchell [facility] 09/10/2024 11:23:13 07/21/19 25 Cerumen removal - Instruments, Bilateral completed Brittany Vance [facility] 07/21/2024 13:51:54 08/13/19 24 Cerumen removal - Instruments, Bilateral completed Brittany Vance [facility] 08/13/2023 09:35:39 07/31/19 23 Cerumen removal - Instruments, Bilateral completed Daria Sci [facility] 07/30/2022 09:04:39 12/26/19 22 Smell Inventory Test completed Claudette Flores [facility] 12/25/2021 10:52:08 11/01/19 22 Cerumen removal - Instruments, Bilateral completed Claudette Flores [facility] 10/31/2021 12:32:26 07/19/19 21 Tympanogram completed AGUSTÍN PALOMINO, AUD [address], [place], [address], [facility] 07/19/2020 08:43:47 07/19/19 21 Audiogram completed AGUSTÍN PALOMINO AUD [address] [place], [address], [facility] 07/19/2020 08:43:45 07/19/19 21 Cerumen removal - Instruments, Bilateral completed Nora Oviedo [facility] 07/19/2020 09:23:47 10/16/19 20 Injection Joint/Bursa, Major completed JULIO RUSHING MD [address] [place], [address], [facility] 10/16/2019 11:40:23 02/19/20 19 Destruction Premalignant Lesion(s) completed Tiana Mcdowell [facility] 02/18/2019 08:35:39 02/19/20 19 Destruction BN Lesions completed Tiana Mcdowell [facility] 02/18/2019 08:35:20 01/08/20 19 Total hip arthroplasty completed Don Fox [facility] 03/03/2019 14:20:33 08/21/19 19 Destruction MN Lesion; trunk, arm, leg completed Willis Deutsch [facility] 08/20/2018 09:02:32 08/21/19 19 Destruction Premalignant Lesion(s) completed Willis Deutsch [facility] 08/20/2018 08:43:32 08/01/19 19 Tympanogram completed DAY MCDOWELL, AUD [address] [place], [address], [facility] 07/31/2018 09:42:26 08/01/19 19 Audiogram completed DAY MCDOWELL AUD [address] [place], [address], [facility] 07/31/2018 09:42:25 08/01/19 19 Audiogram completed Irma Bray [facility] 07/31/2018 10:08:27 08/01/19 19 Tympanometry completed Irma Bray [facility] 07/31/2018 10:08:21 08/01/19 19 Cerumen removal - Instruments, Bilateral completed Irma Bray [facility] 07/31/2018 09:14:28 02/20/20 18 Destruction Premalignant Lesion(s) completed [facility] 02/19/2018 09:05:40 02/20/20 18 Destruction BN Lesions completed [facility] 02/19/2018 09:05:51 08/15/19 18 Destruction MN Lesion; face, ear, eyelid, nose, lip completed [facility] 08/14/2017 10:38:16 08/15/19 18 Destruction Premalignant Lesion(s) completed [facility] 08/14/2017 10:24:05 06/25/19 18 Cerumen removal - Instruments, Bilateral completed Irma Petersson [facility] 06/25/2017 10:30:05 12/27/19 17 Destruction Premalignant Lesion(s) completed [facility] 12/26/2016 08:21:05 06/27/19 17 Biopsy Skin completed [facility] 06/27/2016 09:26:47 06/27/19 17 Destruction Premalignant Lesion(s) completed [facility] 06/27/2016 09:27:14 Fragmenting of kidney stone completed [facility] 09/19/2016 08:15:44 Tonsillectomy completed [facility] 09/19/2016 08:15:47 Prostatectomy (turp) completed [facility] 09/19/2016 08:16:00 Shoulder Surgery completed [facility] 09/19/2016 08:16:09 Knee Surgery completed [facility] 09/19/2016 08:16:16 Other completed [facility] 09/19/2016 08:16:22 Imaging Results None recorded. Procedure [...] bromide 42 mcg (0.06 %) nasal spray [place] 2 sprays 3 times a day by [...] Not Available Not Available No t Available Lisao 07/30 completed Not Available Not Available Not [...] Available Not Available Vitals Date Recorded Body height Body mass index (BMI) Body weight Body temperature Systolic blood pressure Diastolic blood pressure Provider Name and Address Organization Details Last Updated DateTime 5 180.34 cm 20.4 kg/m2 02293.2 g 98.2 [degF] 168 mm[Hg] 69 mm[Hg] Beni Albert [facility] 5 13:21:30 Date Recorded Body height Body mass index (BMI) Body weight Body temperature Heart rate Systolic blood pressure Diastolic blood pressure Provider Name and Address Organization Details Last Updated DateTime 4 180.34 cm 20.3 kg/m2 78560.6 9 g 97.9 [degF] 66 /min 162 mm[Hg] 83 mm[Hg] Za Davila [facility] 4 09:04:32 Date Recorded Body temperature Systolic blood pressure Diastolic blood pressure Provider Name and Address Organization Details Last Updated DateTime 11/04/2024 96.9 [degF] 153 mm[Hg] 67 mm[Hg] Lani Davila [facility] 11/04/2024 14:19:50 Date Recorded Body height Body temperature Systolic blood pressure Diastolic blood pressure Provider Name and Address Organization Details Last Updated DateTime 11/04/2024 180.34 cm 96.5 [degF] 116 mm[Hg] 59 mm[Hg] Amy Dickey [facility] 5 10:02:58 Date Recorded Body height Provider Name an d Address Organization Details Last Updated DateTime 11/23/2024 180.34 cm Sally Bojorquez [facility] 11/23/2024 08:11:20 Social History Question Answer Notes LastModified by Organizat ion Details LastModified Time Tobacco Smoking Status Never Smoker Sonu Cordova boyd [facility] 05/31/2016 08:25:52 How Much Tobacco Do You Chew? None [email or web address] Information not available 02/18/2019 Live Alone Or With Others? Alone Information not available 09/19/2016 Marital Status Informat ion not available 09/19/2016 What Was The Date Of Your Most Recent Tobacco Screening? 09/10/2024 Information not available 09/10/2024 Sex: Male Functional Status Question Answer Note LastModified by Organizat ion Details LastModified Time What is your level of alcohol consumption? None Information not available 09/19/2016 Do you or have you ever used smokeless tobacco? 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 Never used electronic cigarettes [email or web address] Information not available 02/18/2019 Mental Status None recorded. Family History Relationship Description Onset Age of this Age Resolved Age Notes LastModified by Organization Details LastModified Time Mother History of hypertension [email or web address] Not available 09/2016 08:25:48 Mother Alzheimer's disease [email or web address] Not available 08:15:14 Medical History Condition Response Kidney Stones N Hyperthyroidism Y Heart Arrhythmia N Emphysema N Esophagus/swallowing troubles Y Hypothyroidism N Depression N Lung Disease N Glaucoma N Anesthesia Complications N Anxiety Disorder N Hearing Loss Y Arthritis Y Acid Reflux (GERD) Y Cancer Y Stroke Y Melanoma N Hoarseness N Alcohol Overuse/Alcohol Abuse N High Cholesterol Y Skin Cancer N Liver Disease N Snoring problems N Headaches N Kidney Disease Y Allergies/Hayfever N Heart Problems N Mental handicap N Ear or Hearing Problems Y Gallbladder Disease N Migraines N Thyroid Problems Y Goiter N Anemia N Chest Pain N Immune System Disorder N Stomach trouble N Heart Attack (ND) N Ulcers N Diabetes Y Rheumatic Fever N Bleeding Disorder N Tuberculosis N AIDS/HIV N Hyperlipidemia N Asthma N Epilepsy/Seizures N Basal Cell Carcinoma Y Sleep Disorder N Hepatitis N Heart Disease Y Hypertension Y Past Encounters Encounter ID Performer Location Encounter Start Date Encounter Closed Date Diagnosis/Indication Diagnosis SNOMED-CT Code Diagnosis ICD10 Code Diagnosis Note [id number] AVTAR VALENZUELA MD [place] [facility] [address] [place] [address] 05/31/2016 08:22:15 05/31/2016 09:10:47 Squamous cell carcinoma of oropharynx 370611127 C10.9 status post radical tonsillect jordan - no evidence of recurrence Metastatic squamous cell carcinoma 349798581 C79.9 status post left neck dissection - no evidence of recurrence Sensorineu ral hearing loss of bilateral ears 731959913 H90.3 Aquino's esophagus 3029 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 Malignant neoplasm of skin 303697180 C44.90 [id number] PAULINE LUCAS MD SURGERY SCHEDULE [address] [place] [address] 06/13/2016 07:33:21 06/13/2016 07:33:40 [id number] JEAN-PIERRE LOMBARDI APRN [facility] [address] [place] [address] 06/27/2016 08:27:50 06/27/2016 09:33:53 Neoplasm of uncertain behavior of skin 23825600 D48.5 (A)R/O BCC - LEFT LATERAL NECKSHAVE BXSEE PROCEDURE NOTESEE PHOTOCLOSE TO SCAR AND ON RADIATION AREA FROM SQUAMOUS CELL CARCINOMA TREATED [address] DE LEON (B)R/O BCC - LEFT MID CHESTSHAVE BXSEE PROCEDURE NOTE *PHOTOS OBTAINED DISCUSSED POSSIBLE REFERAL FOR MOHS OR A GENERAL SURGEON, DEPENDING ON THE RESULTS FROM PATHOLOGY *JULISSA (PT'S DAUGHTER) IS THE PRIMARY NUMBER LISTED FOR PATIENT; PT HAS SIGNED A PERSION TO COMMUNICAT E AND ALSO GAVE VERBAL PERMISSION TO CALL HER WITH RESULTS. Solar lentiginosis 53312 2006 L81.4 BENIGN APPEARANCE - REASSURED PT Multiple b enign melanocytic nevi 484301430 D22.9 BENIGN APPEARANCE - RETURN TO OFFICE WITH CHANGE Actinic keratosis 220668 007 L57.0 CRYO X 4 Senile hyperkeratosis 39 6854623 L82.1 BENIGN APPEARANCE - REASSURED PT [id number] PAULINE LUCAS MD SURGERY SCHEDULE [address] [place] [address] 07/18/2016 08:44:24 07/18/2016 08:44:57 [id number] KAROLINA MOSCOSO MD NEUROLOGY [facility] [address] [place] [address] 09/19/2016 09:30:45 09/19/2016 10:35:09 Cerebrovascular disease 04569924 I67.9 TIA spring 2013 in setting of HTN, DM and DVT of unexplaine d etiology while on ASA. Non-smoker . - Start CoQ10 200 - 300 mg daily- Start MVI- Continue blood pressure medication s - amlodipine , lisinopril , and Coreg-- Continue aggressive management of HTN. Goal BP <= 120/80 - following with PCP-- He has been intolerant of a higher dose of lisinopril with bid dosing; running high BP in the mornings; Consider changing one of the evening BP meds to a long actiing formula, such as carvedilol to Inderal [place], a long acting blood pressure medication -- counselled on concern for dropping pressure too low at night and fall risk as he gets up to go the bathroom; may be better to tolerate mildly elevated BPs in the morning to avoid SE and hypotensio n at night.- Continue vit D3 2000u - just started- Continue statin, krill oil, B-complex, and B12 daily- Stressed the importance of tight control of sugar and sweets, limit salt in diet, low or unsalted, whole grains, vegetables - RTC 1 yr Essential hypertension 75689089 I10 as above Type 2 yovani betes mellitus 50766830 E11.49 see above Hyperlipidemia 78615478 E78.5 as above [id number] JEAN-PIERRE LOMBARDI APRN [facility] [address] [place] [address] 12/26/2016 08:02:15 12/27/2016 09:07:26 Solar lentiginosis 787359066 L81.4 BENIGN APPEARANCE - REASSURED PT Multiple b enign melanocytic nevi 644615933 D22.9 BENIGN APPEARANCE - RETURN TO OFFICE WITH CHANGE History of malignant basal cell neoplasm of skin 064551808 Z85.828 NO RECURRENCE Multiple skin tags 13347 7009 L91.8 BENIGN APPEARANCE - REASSURED PT Hemangioma 574425689 D18 .00 BENIGN APPEARANCE - REASSURED PT Actinic keratosis 007 L57.0 CRYO X 4 Epidermoid cyst 15224676 6 L72.0 BENIGN APPEARANCE - REASSURED PT- NO RECURRENCE Senile hyperkeratosis 39 1555626 L82.1 BENIGN APPEARANCE - REASSURED PT [id number] AVTAR VALENZUELA MD [place] [facility] [address] [place] [address] 06/25/2017 09:10:27 06/25/2017 10:55:45 Squamous cell carcinoma of oropharynx 418597914 C10.9 status post radical tonsillect jordan 1997- no evidence of recurrence Metastatic squamous cell carcinoma 710957656 C79.9 status post left neck dissection 1997 - no evidence of recurrence Sensorineu ral hearing loss of bilateral ears 341402518 H90.3 Aquino's esophagus 3029 83097 K22.70 Malignant neoplasm of skin 783282513 C44.90 [id number] JEAN-PIERRE LOMBARDI APRN [facility] [address] [place] [address] 08/14/2017 09:22:33 08/20/2017 08:19:40 Solar lentiginosis 962944059 L81.4 BENIGN APPEARANCE - REASSURED PT Senile hyperkeratosis 39 2594470 L82.1 BENIGN APPEARANCE - REASSURED PT Multiple b enign melanocytic nevi 973697238 D22.9 BENIGN APPEARANCE - RETURN TO OFFICE WITH CHANGE History of malignant basal cell neoplasm of skin 526507787 Z85.828 NO EVIDENCE OF RECURRENCE Multiple skin tags 58817 7009 L91.8 BENIGN APPEARANCE - REASSURED PT Hemangioma 304839946 D18 .00 BENIGN APPEARANCE - REASSURED PT Actinic keratosis 007 L57.0 CRYO X 3SEE PROCEDURE NOTE; PATIENT ADVISED WHAT TO EXPECT FROM FREEZING Epidermoid cyst 11040560 6 L72.0 BENIGN APPEARANCE - REASSURED PT- NO RECURRENCE Neoplasm o f uncertain behavior of skin 61234792 D48.5 R/O BCCLEFT LOWER CHINSHAVE BIOPSY/EDC X3GEL FOAM/PRESS URE BANDAGECON SENT SIGNEDSEE PROCEDURE NOTEWOUND CARE INSTRUCTIO NS PROVIDEDFO LLOW UP PER PATH/PRN Basal cell carcinoma of skin 566209985 C44.91 LESION TREATED ABOVE ON CHIN BIOPSY PROVEN [id number] KAROLINA MOSCOSO MD NEUROLOGY [facility] [address] [place] [address] 10/16/2017 10:16:10 10/16/2017 11:57:07 Cerebrovascular disease 82890242 I67.9 TIA spring 2013 in setting of HTN, DM and DVT of unexplaine d etiology while on ASA. Non-smoker . - he is to have carotid dopplers as ordered by PCP; request results sent to my office; he has R carotid bruit- Continue CoQ10, vit D3 2000 iu, B-Complex, B12, krill oil daily- Continue blood pressure medication s - amlodipine and Coreg; off lisinopril due to increasing Cr-- Continue aggressive management of HTN. Goal BP <= 120/80 - following with PCP- continue simvistati n, krill oil, CoQ10- continue Plavix- continue tx of DM; on glimiperid e and pt counseled on importance of avoid sweets- recommend that he use a pill organizer- Stressed the importance of tight control of sugar and sweets, limit salt in diet, low or unsalted, whole grains, vegetables - I counseled pt on common signs and symptoms of stroke/TIA and advised that he call 911 immediatel y if he develops sx30 min office visit with >50% in counseling - RTC 1 yr Essential hypertension 54327805 I10 as above - goal BP < 120/80 -- close to goal and much better controlled on current medication s Type 2 yovani betes mellitus 54079852 E11.49 see above - goal FBG <100 Hyperlipidemia 74599605 E78.5 as above continue simvastati n - goal FLP for diabetic guildeline s; per PCP - continue krill oil and CoQ10 [id number] JEAN-PIERRE LOMBARDI APRN [facility] [address] [place] [address] 02/19/2018 08:39:45 02/19/2018 09:16:14 Actinic keratosis 066996773 L57.0 CRYO X 2SEE PROCEDURE NOTE; PATIENT ADVISED WHAT TO EXPECT FROM FREEZING. Senile hyperkeratosis 39 2765730 L82.1 CRYO X 24 WITH IRRITATED SENSATION SEE PROCEDURE NOTE; PATIENT ADVISED WHAT TO EXPECT FROM FREEZING. OTHERS BENIGN APPEARANCE - REASSURED PT Multiple b enign melanocytic nevi 873168952 D22.9 BENIGN APPEARANCE - RETURN TO OFFICE WITH CHANGE History of malignant basal cell neoplasm of skin 807887869 Z85.828 NO EVIDENCE OF RECURRENCE Multiple skin tags 93126 7009 L91.8 BENIGN APPEARANCE - REASSURED PT Hemangioma 227942604 D18 .00 BENIGN APPEARANCE - REASSURED PT Solar lentiginosis 86523 2007 L81.4 BENIGN APPEARANCE - REASSURED PT Epidermoid cyst 18170185 6 L72.0 BENIGN APPEARANCE - REASSURED PT- NO RECURRENCE Skin sensa tion disturbance 98929864 R20.9 [id number] KAROLINA MOSCOSO MD NEUROLOGY [facility] [address] [place] [address] 07/30/2018 13:31:29 07/30/2018 15:45:06 Cerebrovascular disease 51276710 I67.9 TIA/Stroke spring 2013 in setting of HTN, DM and DVT of unexplaine d etiology while on ASA. Non-smoker .Second TIA June 2018 in setting of 3-4 days without carvedilol and while on Plavix. Carotid dopplers and CT head reviewed. He has 50-69% b/l carotid stenosis. BP remains in hypertensi ve range, often with elevations 170s-200s/ 90s-100s, but most often 150s-160s/ 70s-80s. - I've counseled him on the importance of monitoring his medication s, taking them faithfully and not running out; I've recommende d he use a pill organizer and that he should allow his daughter julissa help prepare the pill packs since she picks up his medication s.- Continue CoQ10, vit D3 2000 iu, B-Complex, B12, krill oil daily- Continue blood pressure medication s - Coreg; had been off lisinopril due to increasing Cr, but now back on and d/c'd amlodipine ; he needs tighter control; I've asked him to discuss increasing lisinopril or adding another antihypert ensive agent with nephrologi st and PCP-- Goal BP <= 120/80- continue simvastati n, krill oil, CoQ10- continue Plavix and ASA (recently added back); h/o bleeding in past while on both; if he has problems with bleeding again, hold ASA and then try to resume it every other day or 3 times per week.- needs improved diet for better control of DM- recommend that he use a pill organizer- Stressed the importance of tight control of sugar and sweets, limit salt in diet, recommend he begin monitoring how much salt he is using; I've recommende d that he use the logs he creats of BP, and fasting blood sugar to guide him as to what he needs to do with his diet, exercise and medication s.- I counseled pt and his daughter Julissa on common signs and symptoms of stroke/TIA and advised that he call 911 immediatel y if he develops sx 40 min office visit with >50% in counseling - RTC 1 yr Essential hypertension 85847380 I10 as above; not well controlled at this time, some changes per nephrologi st and most by PCP see above for concerns regarding elevated BP, not running out of medication s - goal BP < 120/80 - counseled: studies show 1/3 few strokes in prior stroke patients in the normal BP range (<120/80) versus those in the prehyperte nsive range (120-140/8 0-85). Most of his BPs have been in the hypertensi ve range and numerous in the 170s-200s/ 90s-100s. - pt advised to resume monitoring salt in diet and limit per PCP/nephro logist instructio ns Type 2 yovani betes mellitus 28012715 E11.49 - continue tx of DM; on glimiperid e and pt counseled on importance of avoiding sweets, using his logs in conjunctio n with diet to adjust his diet - goal FBG <100 Hyperlipidemia 67922042 E78.5 as above continue simvastati n - goal FLP for diabetic guildeline s; per PCP - continue krill oil and CoQ10 [id number] AVTAR VALENZUELA MD [place] [facility] [address] [place] [address] 07/31/2018 08:24:22 07/31/2018 10:15:16 Squamous cell carcinoma of oropharynx 633945362 C10.9 status post radical tonsillect jordan 1997- no evidence of recurrence Metastatic squamous cell carcinoma 830312719 C79.9 status post left neck dissection 1997 - no evidence of recurrence Sensorineu ral hearing loss of bilateral ears 464827246 H90.3 Aquino's esophagus 3029 70832 K22.70 Malignant neoplasm of skin 231853775 C44.90 Impacted c erumen of bilateral ears [id number] 682226 H61.23 [id number] ELENA ZAYAS [place] [facility] [address] [place] [address] 07/31/2018 09:23:23 07/31/2018 10:09:21 Asymmetrical sensorineural hearing loss 181026062 H90.5 [id number] JEAN-PIERRE LOMBARDI APRN [facility] [address] [place] [address] 08/20/2018 08:14:29 08/21/2018 11:06:19 Actinic keratosis 220675331 L57.0 CRYO X 4SEE PROCEDURE NOTERISKS OF CRYO SURGERY DISCUSSED; POST OP CARE INSTRUCTIO NS PROVIDED. VERBAL CONSENT TO TREAT GIVEN BY PATIENT. Epidermoid cyst 88593733 6 L72.0 BENIGN APPEARANCE - REASSURED PT- NO RECURRENCE Senile hyperkeratosis 39 8615838 L82.1 BENIGN APPEARANCE , PT REASSURED Multiple b enign melanocytic nevi 425937094 D22.9 BENIGN APPEARANCE - RETURN TO OFFICE WITH CHANGE History of malignant basal cell neoplasm of skin 080406267 Z85.828 NO EVIDENCE OF RECURRENCE Multiple skin tags 10187 7009 L91.8 BENIGN APPEARANCE - REASSURED PT Hemangioma 983317320 D18 .00 BENIGN APPEARANCE - REASSURED PT Solar lentiginosis 73609 2007 L81.4 BENIGN APPEARANCE - REASSURED PT Neoplasm o f uncertain behavior of skin 33861070 D48.5 R/O [address] BIOPSY EDC X 3GEL FOAM/PRESS URE BANDAGECON SENT SIGNEDSEE PROCEDURE NOTEWOUND CARE INSTRUCTIO NS PROVIDEDFO LLOW UP PER PATH/PRN Basal cell carcinoma of skin 369731632 C44.91 LESION TREATED ABOVE ON RIGHT SHOULDER BIOPSY PROVEN [id number] JULIO Francisco MD [facility] [address] [place] [address] 10/16/2018 15:17:42 10/16/2018 16:40:27 Knee pain 57903365 M25.561 Osteoarthritis of hip 23 0948327 M16.11 [id number] KAROLINA MOSCOSO MD NEUROLOGY [facility] [address] [place] [address] 12/26/2018 14:44:23 12/26/2018 16:30:59 Cerebrovascular disease 87476758 I67.9 AMS/enceph alopathy/c onfusion during hypotensio n following L carotid stent November 2018. On November 28, 2018, he underwent left carotid stent placement with difficult to control BP, labile hypo/hyper tension in the following days symptomati c of confusion and apraxia. After discharge from vascular surgery on 11/30/18, he was readmitted the same day with confusion and apraxia which resolved with improved BPs and resolution of acute renal failure. Phillip has multiple vascular risk factors including 2 TIAs, labile HTN, hyperlipid emia, diabetes, thyroid disease, DVT and chronic kidney disease. The first TIA occurred in the spring 2013 while on ASA and the second TIA in May 2018 while on Plavix, in setting of 3-4 days without carvedilol . He has been historical ly been lackaristides gao about diet, medication s and his daughter Juilssa has been helping him organize medication s, counseling /checking on his diet, and he has been much better controlled . His exam today is remarkable for mild cognitive impairment and is otherwise non-focal from a vascular point of view. BPs have stabilized with only 1 outlier above and 1 below acceptable range; both asymptomat ic. - Goal BP < 120/80, but avoid hypotensio n. I've counseled Julissa and pt that if his BP drops below 90/50, or frequently above 160/90 they need to contact Dr. Ramos to discuss change in HTN medication ; consider lower dosing of maintenanc e antihypert ensive agent(s) and adding PRNmedicat ion. I've discussed this with both pt and daughter Julissa as PRN dosing may be difficult for pt to manage.- For now, continue blood pressure medication s per Dr. Ramos and keep log, as he is doing.- would recommend increase dosing if BP begins to steadily increase and no hypotensiv e episodes; defer management to PCP - I've recommende d that he eat three meals per day, continue to avoid salt, limit sweets and starches and avoid fried foods, foods high in saturated and trans-fats . Would add Boost or Ensure daily due to poor appetite. - Continue vitamins - these were reviewed with Julissa today.- Continue CoQ10 100 mg, vit D3 2000 iu two daily, B-Complex (with no more than 25 mg of B6), B12 and krill oil daily - Continue statin, krill oil and CoQ10- Continue ASA and Plavix (ASA added back after TIA in 05/2018)-- per previous recommenda tion:if he again has problems with bleeding while on both agents, he is to hold ASA x 3 day, then resume if bleeding has stopped; notify PCP or if significan t bleeding, go to ER/call 911 Commended for use of pill organizer. He is ok to drive. I counseled pt and his daughter Julissa on common signs and symptoms of stroke/TIA and advised that he call 911 immediatel y if he develops sx 1 hour office visit with >50% in counseling - RTC as schedule 07/29/2019 Mild neuro cognitive disorder 620313456 G31.84 mild cognitive impairment in 78 yo man with multiple vascular risk factors (TIA x 2, HTN, HLD, DM, hypoT, DVT, CKD). Suspect this is secondary to vascular disease but cannot exclude neurodegen erative, such as Alzheimer' s pathology. - Julissa counseled to watch for period of confusion, delerium during periods of illness, stess, hypotensio n, hypoglycem ia, infection (UTI), anesthesia (may be prolonged after anesthesia ). - medical management as noted above - advised to engage in stimulatin g mind activities and stay active - he is ok to drive [id number] JULIO Francisco MD SURGERY SCHEDULE [address] [place] [address] 01/09/2019 16:51:14 01/12/2019 14:39:23 [id number] Kushal MOSCOSO PA-C [facility] [address] [place] [address] 01/28/2019 13:32:22 01/28/2019 14:21:37 Postoperative care 578989069 Z48.89 Attempted to temper patient's exuberance for increased activity. Though he has no formal hip precaution s he is already had a fall from moving too quickly without appropriat e thought. Patient should not drive until off all narcotics. Patient family would like him to extend home health as they have no one available to transfer him for 2 more weeks [id number] JEAN-PIERRE LOMBARDI APRN [facility] [address] [place] [address] 02/18/2019 08:11:43 02/18/2019 09:07:43 Actinic keratosis 077310612 L57.0 CRYO x4 RISKS OF CRYO SURGERY DISCUSSED; POST OP CARE INSTRUCTIO NS PROVIDED. VERBAL CONSENT TO TREAT GIVEN BY PATIENT. RECHECK IF PERSISTING AFTER TREATMENT. Epidermoid cyst 21699963 6 L72.0 BENIGN APPEARANCE - REASSURED PT- NO RECURRENCE Senile hyperkeratosis 39 6397422 L82.1 BENIGN APPEARANCE , PT REASSURED Multiple b enign melanocytic nevi 910101441 D22.9 BENIGN APPEARANCE - RETURN TO OFFICE WITH CHANGE History of malignant basal cell neoplasm of skin 354840917 Z85.828 NO EVIDENCE OF RECURRENCE Multiple skin tags 98155 7009 L91.8 BENIGN APPEARANCE - REASSURED PT Hemangioma 055120427 D18 .00 BENIGN APPEARANCE - REASSURED PT Solar lentiginosis 00229 2007 L81.4 BENIGN APPEARANCE - REASSURED PT Inflamed s eborrheic keratosis 017366909 L82.0 CRYO x2 RISKS OF CRYO SURGERY DISCUSSED; POST OP CARE INSTRUCTIO NS PROVIDED. VERBAL CONSENT TO TREAT GIVEN BY PATIENT. RECHECK IF PERSISTING AFTER TREATMENT. [id number] JULIO Francisco MD [facility] [address] [address] 03/03/2019 13:34:57 03/03/2019 14:42:11 History of total hip arthroplasty 4705845226 06 Z96.396 [id number] AVTAR VALENZUELA MD [place] [facility] [address] [place] [address] 07/14/2019 08:43:51 07/14/2019 12:26:07 Squamous cell carcinoma of skin 437646667 C44.92 Squamous c ell carcinoma of oropharynx 959279245 C10.9 - Status post radical tonsillect jordan 1997- no evidence of recurrence Metastatic squamous cell carcinoma 034806873 C79.9 - Status post left neck dissection 1997 - no evidence of recurrence Sensorineu ral hearing loss of bilateral ears 870451794 H90.3 Aquino's esophagus 3029 03867 K22.70 Malignant neoplasm of skin 857429739 C44.90 [id number] KAROLINA MOSCOSO MD [facility]UROLOG[facility] [address] [place] [address] 07/29/2019 08:30:18 07/29/2019 10:39:34 Cerebrovascular disease 27839236 I67.9 AMS/enceph alopathy/c onfusion during hypotensio n following L carotid stent November 2018. On November 28, 2018, he underwent left carotid stent placement with difficult to control BP, labile hypo/hyper tension in the following days symptomati c of confusion and apraxia. After discharge from vascular surgery on 11/30/18, he was readmitted the same day with confusion and apraxia which resolved with improved BPs and resolution of acute renal failure. Phillip has multiple vascular risk factors including 2 TIAs, labile HTN, hyperlipid emia, diabetes, thyroid disease, DVT and chronic kidney disease. The first TIA occurred in the spring 2013 while on ASA and the second TIA in May 2018 while on Plavix, in setting of 3-4 days without carvedilol . He has been historical ly been lackadaisi zach about diet, medication s and his daughter Julissa has been helping him organize medication s, counseling /checking on his diet, and he has been much better controlled . He has had post-surgi zach and procedure confusion and hallucinat ions. - Goal BP < 120/80, but avoid hypotensio n. I've counseled Julissa and pt that if his BP drops below 90/50, or frequently above 160/90 they need to contact Dr. Ramos to discuss change in HTN medication ; consider lower dosing of maintenanc e antihypert ensive agent(s) and adding PRNmedicat ion. I've discussed this with both pt and daughter Julissa as PRN dosing may be difficult for pt to manage.- For now, continue blood pressure medication s per Dr. Ramos and keep log, as he is doing.- would recommend increase dosing if BP begins to steadily increase and no hypotensiv e episodes; defer management to PCP - I've recommende d that he eat three meals per day, continue to avoid salt, avoid sweets and starches and avoid fried foods, foods high in saturated and trans-fats . He is still not eating healthy meals, so recommend that he drink a Boost or Ensure daily due to poor appetite. - Continue vitamins - these were reviewed with Julissa today.- Continue CoQ10 100 mg, vit D3 2000 iu two daily, B-Complex (with no more than 25 mg of B6), B12 and krill oil daily - Continue statin, krill oil and CoQ10- Continue ASA and Plavix (ASA added back after TIA in 05/2018) Commended for use of pill organizer and encouraged Julissa to stay on top of it.Also recommend that Julissa quiz him everyday about headaches, weakness, vision, speech, [place] President and ask him to tell her who she is. Continue to monitor BP.Encoura ge exercise, walking. I counseled pt and his daughter Julissa on common signs and symptoms of stroke/TIA and advised that he call 911 immediatel y if he develops sx. I will see him back in 1 year or sooner PRN 40 min office visit with >50% in counseling Mild neuro cognitive disorder 831002854 G31.84 mild cognitive impairment in 79 yo man with multiple vascular risk factors (TIA x 2, HTN, HLD, DM, hypoT, DVT, CKD). Suspect this is secondary to vascular disease but cannot exclude neurodegen erative, such as Alzheimer' s pathology. This has been stable with intermitte nt period of confusion when he has anesthesia and with BP spikes. He is no longer driving at choice. He no longer owns a car. - Julissa counseled to watch for period of confusion, delerium during periods of illness, stress, hypotensio n, hypoglycem ia, infection (UTI), anesthesia (may be prolonged after anesthesia ). - medical management as noted above - advised to engage in stimulatin g mind activities and stay active - counseled Julissa on potential need at some point for in home care versus placement as he is at high risk of stroke if BP cannot be controlled from spikes, and he at times misses taking medication s. [id number] JULIO Francisco MD [facility] [address] [place] [address] 10/16/2019 08:34:33 10/16/2019 09:25:50 Greater trochanteric pain syndrome 3661917 M70.60 History of total replacement of right hip joint 1497409771 62913 Z96.417 [id number] AVTAR VALENZUELA MD [place] [facility] [address] [place] [address] 07/19/2020 08:14:02 07/19/2020 09:51:25 Squamous cell carcinoma of skin 441332517 C44.92 Squamous c ell carcinoma of oropharynx 929055693 C10.9 - Status post radical tonsillect jordan 1997- no evidence of recurrence Metastatic squamous cell carcinoma 888350943 C79.9 - Status post left neck dissection 1997 - no evidence of recurrence Sensorineu ral hearing loss of bilateral ears 770880508 H90.3 Aquino's esophagus 3029 01335 K22.70 Malignant neoplasm of skin 642784898 C44.90 [id number] ELENA RIOJAS [place] [facility] [address] [place] [address] 07/19/2020 08:43:28 07/19/2020 09:56:00 Sensorineural hearing loss of bilateral ears 268944773 H90.3 [id number] KAROLINA MOSCOSO MD NEUROLOGY [facility] [address] [place] [address] 07/27/2020 08:10:45 07/27/2020 10:00:07 Cerebrovascular disease 65193830 I67.9 AMS/enceph alopathy/c onfusion during hypotensio n following L carotid stent November 2018. On November 28, 2018, he underwent left carotid stent placement with difficult to control BP, labile hypo/hyper tension in the following days symptomati c of confusion and apraxia. After discharge from vascular surgery on 11/30/18, he was readmitted the same day with confusion and apraxia which resolved with improved BPs and resolution of acute renal failure. Phillip has multiple vascular risk factors including 2 TIAs, labile HTN, hyperlipid emia, diabetes, thyroid disease, DVT and chronic kidney disease. The first TIA occurred in the spring 2013 while on ASA and the second TIA in May 2018 while on Plavix, in setting of 3-4 days without carvedilol . He has been historical ly been lackaristides gao about diet, medication s and his daughter Julissa has been helping him organize medication s, counseling /checking on his diet, and he has been much better controlled . He has had post-surgi zach (carotid stent) and procedure confusion and hallucinat ions. Now with loud R carotid bruit, CTA showing <70% occluded and no sx on the L side (per Julissa and pt). - Goal BP < 130/80, prefer < 120/80, but avoid hypotensio n. I've counseled Julissa and pt that if his BP drops below 90/50, or frequently above 160/90 they need to contact Dr. Ramos to discuss change in HTN medication ; consider lower dosing of maintenanc e antihypert ensive agent(s) and adding PRNmedicat ion. I've discussed this with both pt and daughter Julissa as PRN dosing may be difficult for pt to manage.- follow closely with Dr. Ashvin Irby for carotid and recommend CEA or stent if R carotid >70% occluded or symptomati c on L sided sx -- I described these to Julissa and pt.- For now, continue blood pressure medication s per Dr. Ramos and keep log, as he is doing.- I've recommende d that he eat three meals per day, continue to avoid salt, avoid sweets and starches and avoid fried foods, foods high in saturated and trans-fats . He is still not eating healthy meals, so recommend that he drink a Boost or Ensure daily due to poor appetite. - Continue vitamins - these were reviewed with Julissa today.- Continue CoQ10 100 mg, vit D3 2000 iu two daily, B-Complex (with no more than 25 mg of B6), B12 and krill oil daily - Continue statin, krill oil and CoQ10- Continue ASA and Plavix (ASA added back after TIA in 05/2018) Commended for use of pill organizer and encouraged Julissa to stay on top of it.Also recommend that Julissa quiz him everyday about headaches, weakness, vision, speech, [place] President and ask him to tell her who she is. Continue to monitor BP.Encoura ge exercise, walking. I counseled pt and his daughter Julissa on common signs and symptoms of stroke/TIA and advised that he call 911 immediatel y if he develops sx. I will see him back in 1 year or sooner PRN Mild neuro cognitive disorder 813863700 G31.84 mild cognitive impairment in 80 yo man with multiple vascular risk factors (TIA x 2, HTN, HLD, DM, hypoT, DVT, CKD). Suspect this is secondary to vascular disease but cannot exclude neurodegen erative, such as Alzheimer' s pathology. This has been stable with intermitte nt period of confusion when he has anesthesia and with BP spikes. He is no longer driving at choice. He no longer owns a car. - Julissa counseled to watch for period of confusion, delerium during periods of illness, stress, hypotensio n, hypoglycem ia, infection (UTI), anesthesia (may be prolonged after anesthesia ). - medical management as noted above - advised to engage in stimulatin g mind activities and stay active - recommend he get hearing aids -- use it or lose it and that applies to cognitive function -- faster cognitive decline if doesn't have verbal input. - previously counseled Julissa on potential need at some point for in home care versus placement as he is at high risk of stroke if BP cannot be controlled from spikes, and he at times misses taking medication s. [id number] C FREDERICK MOSCOSO PA-C [facility] [address] [place] [address] 10/11/2020 11:05:41 10/11/2020 12:26:51 Greater trochanteric pain syndrome 1784849 M70.60 Patient was educated on use of a single pole cane in the contralate ral hand. Deep ice massage over the trochanter ic bursa. Oral versus topical NSAID applicatio n. And lastly practicing perfect technique for gluteus medius and iliotibial band stretching and strengthen ing. We briefly touched on the risk of repeated corticoste roid injections in the trochanter ic bursa and potential for damage to the associated tendons [id number] BARBER PHELAN PA-C [facility] [address] [address] 12/13/2020 09:39:57 12/13/2020 10:23:13 Greater trochanteric pain syndrome 4700739 M70.60 patient did not find relief with physical therapy as ordered at last visit. Patient does have it appreciate d leg length discrepanc y with the obvious Trendelenb urg gait. We will see if we can offset his leg length discrepanc y with a heel insert today. Would recommend continuing exercises. If his pain does continue, we need to focus on his low back or possible nerve entrapment . Hip prosthesis is well fixed without evidence of complicati on. [id number] MD ELO [facility] [address] [place] [address] 10/31/2021 11:06:58 10/31/2021 12:40:10 Squamous cell carcinoma of skin 504795306 C44.92 Squamous c ell carcinoma of oropharynx 529697424 C10.9 - Status post radical tonsillect jordan 1997- no evidence of recurrence Metastatic squamous cell carcinoma 506427347 C79.9 - Status post left neck dissection 1997 - no evidence of recurrence Sensorineu ral hearing loss of bilateral ears 648987210 H90.3 Aquino's esophagus 3029 87748 K22.70 Malignant neoplasm of skin 596616020 C44.90 [id number] MD ELO ODOM [facility] [address] [place] [address] 12/25/2021 09:15:55 12/25/2021 10:55:34 Squamous cell carcinoma of oropharynx 331879448 C10.9 - Status post radical tonsillect jordan 1997- no evidence of recurrence Metastatic squamous cell carcinoma 079656041 C79.9 - Status post left neck dissection 1997 - no evidence of recurrence Sensorineu ral hearing loss of bilateral ears 263830776 H90.3 Has ordered hearing aids Taste sense altered 0868 15505 R43.2 Likely from dysosmia Sense of s kraig impaired 14563361 R43.9 Identifies 22 of 40 itemsCorre ctly on smell test [id number] MD ELO ODOM ENT [facility] [address] [place] [address] 07/30/2022 08:24:56 07/30/2022 11:05:23 Sense of smell impaired 34700041 R43.9 Identifies 22 of 40 itemsCorre ctly on smell test Taste sense altered 2718 84173 R43.2 Likely from dysosmia Squamous c ell carcinoma of oropharynx 996099125 C10.9 - Status post radical tonsillect jordan 1997- no evidence of recurrence Metastatic squamous cell carcinoma 867241115 C79.9 - Status post left neck dissection 1997 - no evidence of recurrence Sensorineu ral hearing loss of bilateral ears 851623509 H90.3 Has ordered hearing aids Finding of hearing aid 264110628 Z97.4 bilaterall y through [facility] Basal cell carcinoma of skin 835864383 C44.91 Impacted c erumen of bilateral ears 2089840705 130862 H61.23 [id number] AVTAR VALENZUELA MD [place] [facility] [address] [place] [address] 08/13/2023 08:38:40 08/13/2023 10:52:51 Sense of smell impaired 32568394 R43.9 Identifies 22 of 40 itemsCorre ctly on smell test Taste sense altered 2718 71616 R43.2 Likely from dysosmia Squamous c ell carcinoma of oropharynx 191738608 C10.9 - Status post radical tonsillect jordan 1997- no evidence of recurrence 08/12/24- SUNIL Metastatic squamous cell carcinoma 991336094 C79.9 - Status post left neck dissection 1997 - no evidence of recurrence 08/13/23- SUNIL Basal cell carcinoma of skin 393226766 C44.91 08/13/23- recent removals on the pt's back. 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 Arm and neck appear to be active07/21- left side of face. x1 removal with recurrence present today Squamous c ell carcinoma of oropharynx 348244166 C10.9 - Status post radical tonsillect jordan 1997- no evidence of recurrence 08/12/24- NE07/21/24 - SUNIL Metastatic squamous cell carcinoma 901898677 C79.9 - Status post left neck dissection 1997 - no evidence of recurrence 08/13/23- SUNIL Sensorineu ral hearing loss of bilateral ears 094156112 H90.3 Has ordered hearing aids Finding of hearing aid 812838157 Z97.4 bilaterall y through [facility] Chronic ki dney disease stage 4 836125531 N18.4 Dysphagia 64040410 R13.1 0 07/21/24- with esophageal stenosis and dysphagia Stricture of esophagus 70024814 K22.2 Consider dilatation by GI Clearing t hroat - hawking 924345862 R05.9 [id number] DALIA BARBER PA-C [address] [place] [address] 09/10/2024 10:25:23 09/10/2024 12:32:04 Neoplasm of uncertain behavior of skin 79962172 D48.5 The etiology of lesion(s) discussed. x1 Biopsy recommende d and completed today.1) 0.9cm firm, pink, hyperkerat otic plaque- L posterior cheek r/o SCCHealing process and wound care discussed. Will call pt with results or post to portal if benign. Actinic keratosis 673576 007 L57.0 The nature of the diagnosis was explained. Pre-cancer ous.x1 Treated with LN2. Healing process discussed. Pt to call with any concerns or if lesion(s) persist. Seborrheic keratosis [id number] L82.1 The nature of the diagnosis was explained. Appears clinically benign. Reassuranc e given.Cont inue to monitor area and call with concerns/c hanges. [id number] JULIETH MYERS MD [place] [address] 8 11/04/2024 09:31:21 11/06/2024 11:13:29 [id number] DALIA BARBER PA-C [address] [address] 11/23/2024 08:05:13 11/23/2024 09:03:23 Multiple benign melanocytic nevi [id number] D22.5 L81.4 D18.01 L82.1 Benign appearing lesions.Re assurance given.Sun protection discussed. Look for physical christian sunscreens with at least SPF 30 containing zinc oxide or titanium dioxide as active ingredient .Recommend monthly self examinatio ns and yearly full skin examinatio n with a dermatolog y provider.P atient instructed to call with any concerns or changing lesions. History of malignant neoplasm of skin [id number] Z85.828 The scar is clear with no evidence of recurrence .Cont to monitor for any changes. Neoplasm o f uncertain behavior of skin [id number] D48.5 The etiology of lesion(s) discussed. Biopsy recommende d.Will call pt with results or post to portal if benign. Superior R Shoulder: R/o: ISK vs SCC.Superi or L Shoulder: R/o ISK vs SCC. ED&C Done. Actinic keratosis L57.0 The nature of the diagnosis was explained. Pre-cancer ous.x [address] Healing process discussed. Pt to call with any concerns or if lesion(s) persist. Inflamed s eborrheic keratosis [id number] L82.0 R52 Benign appearing lesions.Si nce bothersome and painful, will treat with LN2.Lesion s treated today may persist.F/ u if treated lesions persist. Health Concerns Section Related Observation LastModified by Organization Detai ls LastModified Time None Recorded Concern Status LastModified by Organization Details LastModified Time None Recorded Advance Directives Directive None Recorded Payers Insurance Date Sequence Insurance Name Policy Number Policy Giron Covered Member ID Giron Member ID Guarantor Name 10/31/2021 2 AARP PLAN F Nader Briggs [id number] Nader Briggs 11/01/2024 1 MED[place]ARE[place] Nader Briggs [id number] Nader Briggs 10/31/2021 2 AARP (MEDICARE SUPPLEMENT) Nader Briggs [id number] Nader Briggs 11/20/2024 2 AARP (MEDICARE SUPPLEMENT) Nader Briggs [id number] Nader Briggs Notes Date Note Type Note Provider Name and Address Organization Details Recorded Time 08/13/2023 text/html Phillip (83 M) pres ents in office today to follow up on annual visit for squamous cell carcinoma of oropharynx and cerumen impaction. He is having recent nose watering while eating. This is routine. Family members and friends note the pt looks ill. His daughter notes he is afraid of gaining a pound. He notes prior to his neck carcinoma surgery he was 89. He does have hx of skin cancer treated by Dermatology. The pt denies any new hospital stays or illness. He wears his hearing aids daily. He had carcinoma 26 years ago. He has had a 6 pound weight loss. He eats large breakfasts but will only eat once a day. AVTAR VALENZUELA MD [address] [place] [address], [phone], [facility] 08/13/2023 11:22:13 07/21/2024 text/html Phillip presents in office today to follow up on cerumen impaction. He is having dysphagia secondary to radiation treatments to his throat. Weight is stable as compared to 07/2023. He did have a barium swallow performed 05/2024 along with an EGD- performed at . He does cough often-especially while eating. He was not eligible for esophageal dilation due to too weak of throat muscles . Penetration of liquids was noted on the Barium swallow exam. EGD revealed fibrosis and a stricture. The pt denies vomiting often. He last had radiation treatments in 1997. The pt denies prior feeding tube. He does struggle to take his medication in the morning. The pt is not on a liquid diet and eats slowly. He ate eggs, sausage, toast, and hash browns today. He eats lunch but does not eat dinner. He does drink Ensure during dialysis treatments. The pt has been in the hospital x3 in May. 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 His daughter accompanies him today and she is from [place]. AVTAR VALENZUELA MD [address] [place] [address], [phone], [facility] 07/21/2024 17:10:05 09/10/2024 text/html spot of concern location: Cheekduration: 1+ yeartx tried: RJ4buxlot: I would like it removed. DALIA BARBER PA-C [address] [place] [address], [phone], [facility] 09/10/2024 12:35:58 11/04/2024 text/html PREOP CHECKLIST1 . Pacemaker or [...] ride home? YES - Notes: Not Available [facility] 11/05/2024 15:44:46
--- OUTSIDE RECORDS SUMMARY | 2024-11-24 18:04 | XMS_ITS | Encounter Summary ---
Author Organization [employer] ([place], [place], [place], [place]) Address [address] [place] [address] Care Team Providers Care Ppap Coordinator Name Role Phone Unavailable Primary Care Provider Unavailabl e Encounter Details Date Type Department Care Team (Late st Contact Info) Description 11/28/2018 Transcribed Document [facility] [place] [facility] [place] [address] ProviderBrianne MD [address] [place], [place] [id number] Social History Tobacco Use Types Packs/Day Years Used Date Smoking Tobacco: Never Assessed Sex and Gender Information Value Date Recorded Sex Assigned at Male 11/21/2021 1:59 PM CDT Legal Sex Male 1:59 PM CDT Gender Identity Male 11/21/2021 1:59 PM CDT Sexual Orientation Not on file documented as of this encounter Miscellaneous Notes * Cerner Conversion Note - Brianne Kim MD - 11/28/2018 4:05 PM CDT Patient: NADER TOLENTINO Age: 78 years Sex: Male : 1940 Associated Diagnoses: None Author: DERIAN HERNANDEZ MD-KALINA Subjective Patient reports that he is feeling well and at his usual baseline following left carotid stent today. He and family report he has had two episodes of LEFT hand clumsiness and weakness in the past six months but he denies any prior issues with his RIGHT side Objective VS/Measurements Vital Signs/Vital Measures 11/28/2018 15:04 EDT Systolic Blood Pressure 140 mmHg Diastolic Blood Pressure 65 mmHg Temperature, Fahrenheit 97.6 Deg F Heart Rate Monitored 54 bpm LOW General: awake and alert, in no distress; speech is fluent with no dysarthria. Eye: Pupils are equal, round and reactive to light, Extraocular movements are intact, slight asymmetry to eye opening noted, left eye opens more than right- patient reports this is baseline. HENT: Normocephalic. Respiratory: Respirations are non-labored. Cardiovascular: Normal rate, Regular rhythm. Neurologic: CN II-VII intact; visual castellanos are full. Strength is 5/5 throughout (does report some right leg pain), no drift, sensation intact, no ataxia with FTN. Gait not assessed as he remains on bedrest following procedure. NIH stroke scale = 0. Psychiatric: Cooperative, Appropriate mood & affect. Results Review Labs reviewed Impression and Plan 78yo Mwith h/o neck cancer for which he received radiation to the left neck, now admitted with significant left carotid artery stenosis noted on CTA (by report 60% on CTA though per operative report stenosis was more severe). He has a history of reported TIA though describes symptoms as left sided, rather than the expected right side. He is s/p placement of left carotid stent today, no noted complications with procedure and he remains neurologically intact following with no new deficits per my exam. He will continue on dual antiplatelet therapy for now and was instructed to notify staff immediately for any neurologic changes. I am available to follow as needed; please call with any questions. documented in this encounter Plan of Treatment Not on file documented as of this encounter Visit Diagnoses Not on filedocumented in this encounter
--- OUTSIDE RECORDS SUMMARY | 2024-11-24 18:04 | XMS_ITS | Encounter Summary ---
Author Organization [facility] Address [address] [place] [address] Care Team Providers Care Coupling Machine Operator Name Role Phone Oz Ramos MD Primary Care Provider [phone] John Joseph MD Unavailable [phone] Cheyenne Mitchell APRN, DEVI Unavailable [phone] Encounter Details Date Type Department Care Team (Late st Contact Info) Description 10/26/2024 Telephone [facility] [address] [facility] 5th Floor [address], [address] [place] [address] Carolee Gr MD [address] [facility] [address] [place] [address] Social History Tobacco Use Types [...] any time in the past 12 m [facility], were you homeless or living in a group home (including now)? No 06/19/2024 CAGE ASSESSMENT Answer [...] drink first t jeff in the morning (EYE-INFORMATION SECURITY MANAGER) to steady your nerves or to get rid of a hangover? 0 06/18/2024 CAGE Questionnaire Score 0 025 Utilities Answer Date Recorded In the past 12 months has th e [employer], gas, oil, or water company threatened to [...] encounter Miscellaneous Notes * Telephone Encounter - Tiara Pfeiffer - 10/26/2024 8:34 AM EDT Patient Phone Message Reason for Call: Pt requesting a return call regarding if appt can be scheduled sooner than 12/10 Best contact number and optimal time of day to reach caller: [phone] Note: Please do not reply to this message. Follow-up communication and further actions as a result of this message need to be communicated with the patient directly, if the patient is not active onMyChart. If the patient is active on MyChart, they will receive notification of the communication/outcome via [employer]. documented in this encounter Plan of Treatment Upcoming Encounters Date Type Department Care Team (Late st Contact Info) Description 11/26/2024 10:00 AM EDT Office Visit [facility] Comprehensive Vascular Clinic [address] 5[address] Floor [address], [address] [place] [address] Carolee Gr MD [address] [facility] [address] [place] [address] 05/03/2025 8:00 AM EST Appointment [facility] Ultrasound [address] [place] [address] 2025 1:00 PM EST Office Visit [facility] Otolaryngology [address], 3rd [place] [address] Rudy Andersen MD [address] [facility] [address] [place] [address] 05/13/2025 8:10 AM EST [facility] [address], [address] [place] [address] Cheyenne Mitchell APRN, DEVI [address] [address] documented as of this encounter Visit [...] documented as of this encounter Care Teams Coupling Machine Operator Relationship Specialty Start Date End Date Oz Ramos MD [address] [place] [address] [address] [place] [address] PCP - General 10/07/20 John Joseph MD [address] [address] Consulting Physician Urology 02/04/23 Cheyenne Mitchell APRN, DNP [address] [address] Nurse Practitioner Urology 05/13/24 documented as of this encounter
--- OUTSIDE RECORDS SUMMARY | 2024-11-24 18:04 | XMS_ITS | Encounter Summary ---
Author Organization [facility] Address [address] [place] [address] Care Team Providers Care Ordering Box Operator Name Role Phone Oz Ramos MD Primary Care Provider [phone] John Joseph MD Unavailable [phone] Cheyenne Mitchell APRN [facility] Unavailable [phone] Reason for Referral * Imaging (Routine) - Closed Specialty Diagnoses / Procedures Referred By Contac t Referred To Contact Radiology Diagnoses Dysphagia, unspecified type Procedures [place] Modified Barium Swallow Yadiel Thornton MD [address] [place] [address] Phone: tel: fax: Referral ID Status Reason Start Date Expiration Date V isits Requested Visits Authorized [id number] Closed Perform Procedure 10/13/2024 04/14/2026 1 1 Encounter Details Date Type Department Care Team (Late st Contact Info) Description 10/13/2024 Orders Only [facility] Ot[facility]ology [address], 3rd [place] [address] Margot Constantino Dysphagia, unspecified type (Primary Dx) Social History Tobacco Use Types [...] any time in the past 12 m [facility], were you homeless or living in [...] drink first t jeff in the morning (EYE-SOLUTION DESIGN ENGINEER) to steady your nerves or to [...] Description 11/26/2024 10:00 AM EDT Office Visit [facility] Comprehensive Vascular Clinic [address], [address] [place] [address] Carolee Gr MD [address] [facility] [address] [place] [address] 05/03/2025 8:00 AM EST Appointment [facility] Ultrasound [address], [address] [place] [address] 2025 1:00 PM EST Office Visit [facility] Otolaryngology [address], 3rd [place] [address] Yadiel Thornton MD [address] [place] [address] 05/13/2025 8:10 AM EST Office Visit [facility] Urology [address], [address] [place] [address] Cheyenne Mitchell, STATE FARM AGENT, DNP [address] [place] [address] documented as of this encounter Results * [place] Modified Barium [...] this encounter Visit Diagnoses Diagnosis Dysphagia, unspecified type- Primary Dysphagia, oropharyngeal- Primary Dysphagia, oropharyngeal phase Dysphagia, unspecified type documented in this encounter Additional Health Concerns Assessment Noted Time PHQ-9 Depression Total Score: 0 08/27/19 25 12:37 PM EDT A fall risk assessment has been complete d for the patient 08/26/2024 12:38 PM EDT A Body Mass Index follow-up plan has been documented for the patient 09/25/2024 6:16 AM EDT documented as of this encounter Care Teams Ordering Box Operator Relationship Specialty Start Date End Date Oz Ramos MD [address] [place] [address] [address] [place] [address] PCP - General 10/07/20 John Joseph MD [id number] [place] [address] Consulting Physician Urology 02/04/23 Cheyenne Mitchell, ELIZABETH, DNP [id number] [place] [address] Nurse Practitioner Urology 05/13/24 documented as of this encounter
--- OUTSIDE RECORDS SUMMARY | 2024-11-24 18:04 | XMS_ITS | Encounter Summary ---
Author Organization [email or web address] ([place], [place], [place], [place]) Address [address] [place] [address] Care Team Providers Care School Clerk Name Role Phone Unavailable Primary Care Provider Unavailabl e Encounter Details Date Type Department Care Team (Late st Contact Info) Description 11/29/2018 Transcribed Document [facility] [place] Family Medicine [address] [place] [address] ProviderBrianne MD [address] [place] [id number] Social History Tobacco Use Types Packs/Day Years Used Date Smoking Tobacco: Never Assessed Sex and Gender Information Value Date Recorded Sex Assigned at Male 11/21/2021 1:59 PM CDT Legal Sex Male 1:59 PM CDT Gender Identity Male 11/21/2021 1:59 PM CDT Sexual Orientation Not on file documented as of this encounter Miscellaneous Notes * Cerner Conversion Note - Historical ProviderMD - 11/29/2018 5:00 AM CDT Chart Check - Review Order Profile Entered On: 11/29/2018 5:39 EDT Performed On: 11/29/2018 5:00 EDT by JORGE ALBERTO DURAN, RN Chart Check Powerplans Initiated/Discontinued as Appropriate : Yes All Active Orders Reviewed : Yes JORGE ALBERTO DURAN, RN - 11/29/2018 5:39 EDT documented in this encounter Plan of Treatment Not on file documented as of this encounter Visit Diagnoses Not on filedocumented in this encounter
--- OUTSIDE RECORDS SUMMARY | 2024-11-24 18:04 | XMS_ITS | Encounter Summary ---
Author Organization [facility] Address [address] [place] [address] Care Team Providers Care Mechanical Development Engineer Name Role Phone Oz Ramos MD Primary Care Provider [phone] John Joseph MD Unavailable [phone] Cheyenne Mitchell APRN, DEVI Unavailable [phone] Encounter Details Date Type Department Care Team (Latest Contact Info) Description 10/16/2024 Travel Social History Tobacco Use Types Packs/Day [...] any time in the past 12 m [facility], were you homeless or [...] drink first t jeff in the morning (EYE-CONTACT ASSEMBLER) to steady your nerves or to get [...] [facility] [address] [facility] 5th Floor [address] [place] [address] Carolee Gr MD [address] [facility] [address] [place] [address] 05/03/2025 8:00 AM EST Appointment [facility] Ultrasound [address], [address]nd [place] [address] 2025 1:00 PM EST Office Visit [facility] Otolaryngology [address], [address]rd [place] [address] Rudy Andersen MD [address] [facility] [address] [place] [address] 05/13/2025 8:10 AM EST Office Visit [facility] Urology [address], [address] [place] [address] Cheyenne Mitchell, TIE BINDER, DNP [address] [facility] [address] [place] [address] documented as of this encounter [...] documented as of this encounter Care Teams Mechanical Development Engineer Relationship Specialty Start Date End Date Oz Ramos MD [address] [place] [address] [address] [place] [address] PCP - General 10/07/20 John Joseph MD [address] [place] [address] Consulting Physician Urology 02/04/23 Cheyenne Mitchell, ELIZABETH, DNP [address] [place] [address] Nurse Practitioner Urology 05/13/24 documented as of this encounter
--- OUTSIDE RECORDS SUMMARY | 2024-11-24 18:04 | XMS_ITS | Encounter Summary ---
Author Organization [facility] Address [address] [place] [address] Care Team Providers Care Marketing Clerk Name Role Phone Oz Ramos MD Primary Care Provider [phone] John Joseph MD Unavailable [phone] Cheyenne Mitchell APRN [facility] Unavailable [phone] Reason for Referral * Consultation (Routine) - Authorized Specialty Diagnoses / Procedures Referred By Contact Referred To Contact Dietitian / Hematology and Oncology Diagnoses History of squamous cell carcinoma History of radiation therapy Dysphagia, unspecified type Rudy Andersen MD [address] [facility] [address] [place] [address] Phone: tel:[phone] fax: [facility] Multidisciplinary Oncology Clinic [address] [place] [address] Phone: tel: fax: Referral ID Status Reason Start Date Expiration Date Visits Requested Visits Authorized [id number] Authorized Specialty Services Required 11/10/2024 05/12/2026 1 1 Scheduling Instructions *Do Not Schedule* - This referral is for managing the [facility] Dietitian workflow. Encounter Details Date Type Department Care Team (Late st Contact Info) Description 11/10/2024 Orders Only [facility] Otolaryngology [address], [address]rd [place] [address] Vira Margot Salmeron History of radiation therapy (Primary Dx); History of squamous cell carcinoma; Dysphagia, unspecified type Social History Tobacco Use Types Packs/Day Years [...] drink first t jeff in the morning (EYE-SENIOR APPLICATIONS DEVELOPER) to steady your nerves or to get [...] [facility] [address] 5[address] [place] [address] Carolee Gr MD [address] [facility] [address] [place] [address] 05/03/2025 8:00 AM EST Appointment [facility] Ultrasound [address], [address]nd [place] [address] 2025 1:00 PM EST Office Visit [facility] Otolaryngology [address] [place] [address] Rudy Andersen MD [address] [place] [address] 05/13/2025 8:10 AM EST [facility] [address] [place] [address] Cheyenne Mitchell APRN, DEVI [address] [place] [address] Scheduled Referrals Name Type Priority Associated Diagnoses Orde r Schedule Ambulatory referral to [facility] Oncology Nutrition Outpatient Referral Routine History of squamous cell carcinoma History of radiation therapy Dysphagia, unspecified type Expected: 11/10/2024 (Approximate), Expires: 05/12/2026 documented as of this encounter Visit Diagnoses Diagnosis History of radiation therapy- Primary Personal history of irradiation, presenting hazards to health History of squamous cell carcinoma Dysphagia, unspecified type documented in this encounter Additional Health Concerns Assessment Noted Time PHQ-9 Depression Total Score: 4 10/31/19 25 10:22 AM EDT A fall risk assessment has been complete d for the patient 10/30/2024 10:23 AM EDT A Body Mass Index follow-up plan has been documented for the patient 10/30/2024 11:00 AM EDT documented as of this encounter Care Teams Marketing Clerk Relationship Specialty Start Date End Date Oz Ramos MD [address] [place] [address] [address] [place] [address] PCP - General 10/07/20 John Joseph MD [address] [place] [address] Consulting Physician Urology 02/04/23 Cheyenne Mitchell APRN, EDVI [address] [place] [address] Nurse Practitioner Urology 05/13/24 documented as of this encounter
--- OUTSIDE RECORDS SUMMARY | 2024-11-24 18:04 | XMS_ITS | Encounter Summary ---
Author Organization [employer] ([place], [place], [place], [place]) Address [address] [place] [address] Care Team Providers Care Rubber Tubing Backer Name Role Phone Unavailable Primary Care Provider Unavailabl e Encounter Details Date Type Department Care Team (Late st Contact Info) Description 12/01/2018 Transcribed Document [facility] Family Medicine [address] [place] [address] ProviderBrianne MD [address], [place] [id number] Social History Tobacco Use Types Packs/Day Years Used Date Smoking Tobacco: Never Assessed Sex and Gender Information Value Date Recorded Sex Assigned at Male 11/21/2021 1:59 PM CDT Legal Sex Male 1:59 PM CDT Gender Identity Male 11/21/2021 1:59 PM CDT Sexual Orientation Not on file documented as of this encounter Miscellaneous Notes * Cerner Conversion Note - Brianne ProviderMD - 12/01/2018 8:17 AM CDT Consult Phone Call Documentation Entered On: 12/01/2018 8:35 EDT Performed On: 12/01/2018 8:17 EDT by [facility] Phone Call for Consults Consult Phone Call/Page Attempt : First call Consult, Additional Information : consult called to dr harvey emmanuel at 0835 on 12/01/18 [facility] Coord - 12/01/2018 8:35 EDT Electronically signed by [facility] Conversion Transportation Officer Cerner at 09/13/2022 4:35 PM CDT documented in this encounter Plan of Treatment Not on file documented as of this encounter Visit Diagnoses Not on filedocumented in this encounter
--- OUTSIDE RECORDS SUMMARY | 2024-11-24 18:04 | XMS_ITS | Encounter Summary ---
Author Organization [facility] Address [address] [place] [address] Care Team Providers Care Mortgage Clerk Name Role Phone Oz Ramos MD Primary Care Provider [phone] John Joseph MD Unavailable [phone] Cheyenne Mitchell APRN, DEVI Unavailable [phone] Reason for Visit * Reason Comments Med Refill Encounter Details Date Type Department Care Team (Late st Contact Info) Description 11/07/2024 Refill [place] [facility] [address] [facility] 5th Floor Wing [address], [address] [place] [address] Carolee Gr MD [address] [facility] [address] [place] [address] ESRD (end stage renal disease) ([facility]) (Primary Dx) Social History Tobacco Use Types [...] any time in the past 12 m [facility], were you homeless or living [...] drink first t jeff in the morning (EYE-BOAT OUTFITTING SUPERVISOR) to steady your nerves or to [...] encounter Miscellaneous Notes * Telephone Encounter - Malika Rust - 11/17/2024 2:23 PM EDT Spoke w/pt's daughter to move appt sooner. Scheduled for 11/26 at 1000. She is aware and agreeable. No other needs at this time. documented in this encounter Plan of Treatment Upcoming Encounters Date Type Department Care Team (Late st Contact Info) Description 11/26/2024 10:00 AM EDT Office Visit [facility] [address] 5th Floor [address], [address] [place] [address] Carolee Gr MD [address] [place] [address] 05/03/2025 8:00 AM EST Appointment [facility] Ultrasound [address]nd [place] [phone] 2025 1:00 PM EST Office Visit [facility] Otolaryngology [address] 3rd [place] [address] Rudy Andersen MD [address] [place] [address] 05/13/2025 8:10 AM EST Office Visit [facility] Urology [address] 2nd [place] [address] Cheyenne Mitchell APRN, DEVI [address] [place] [address] documented as of this encounter Visit Diagnoses Diagnosis ESRD (end stage renal disease) ([facility])- Primary End stage renal disease documented in this encounter Additional Health Concerns Assessment Noted Time PHQ-9 Depression Total Score: 4 10/31/19 25 10:22 AM EDT A fall risk assessment has been complete d for the patient 10/30/2024 10:23 AM EDT A Body Mass Index follow-up plan has been documented for the patient 10/30/2024 11:00 AM EDT documented as of this encounter Care Teams Mortgage Clerk Relationship Specialty Start Date End Date Oz Ramos MD [address] [place] [address] [address] [place] [address] PCP - General 10/07/20 John Joseph MD [address] [place] [address] Consulting Physician Urology 02/04/23 Cheyenne Mitchell APRN, DNP [address] [place] [address] Nurse Practitioner Urology 05/13/24 documented as of this encounter
--- OUTSIDE RECORDS SUMMARY | 2024-11-24 18:04 | XMS_ITS | Encounter Summary ---
Author Organization [facility] Address [address] [place] [address] Care Team Providers Care Clinical Scientist Name Role Phone Oz Ramos MD Primary Care Provider [phone] John Joseph MD Unavailable [phone] Cheyenne Mitchell APRN, DEVI Unavailable [phone] Encounter Details Date Type Department Care Team (Late st Contact Info) Description 11/17/2024 Telephone [place] [facility] [address] [facility] 5th Floor Wing [address], [address] [place] [address] Carolee Gr MD [address] [facility] [address] [place] [address] Social History Tobacco Use Types [...] time in the past 12 m [facility], were you homeless or living in a skilled nursing (including now)? No 06/19/2024 CAGE ASSESSMENT Answer [...] drink first t jeff in the morning (EYE-CUSTOMER SUCCESS MANAGER) to steady your nerves or to get rid of a hangover? 0 06/18/2024 CAGE Questionnaire Score 0 025 Utilities Answer Date Recorded In the past 12 months has th e State of [place], gas, oil, or water company threatened to [...] encounter Miscellaneous Notes * Telephone Encounter - Gaby Marley RN - 11/17/2024 2:19 PM EDT Called and spoke with patient's daughter Julissa. Daughter states that dialysis has been unable to access AVF and request sooner appointment to discuss options. Okay to overbook per Dr. Gr. Requestsent to front edger to call daughter to move up appointment. No other questions or concerns at this time. * Telephone Encounter - Isela Devlin - 11/17/2024 1:54 PM EDT Clinical Concern/Question Reason for Call: Pt daughter called, asking if there is discussion of second surgery to bring his vein closer to the surface in order to access. She is wondering if there is going to be a point in coming in if there is no real point . She is asking for a call back. Thanks! Best contact number: [phone] (mobile) Optimal time of day to reach caller: ANYTIME Additional comments/information from caller: None Note: Please do not reply to this message. Follow-up communication and further actions as a result of this message need to be communicated with the patient directly, if the patient is not active onMyChart. If the patient is active on MyChart, they will receive notification of the communication/outcome via Pwintyt. documented in this encounter Plan of Treatment Upcoming Encounters Date Type Department Care Team (Late st Contact Info) Description 11/26/2024 10:00 AM EDT Office Visit [facility] [address] 5th Floor [address], [address] [place] [address] Carolee Gr MD [address] [facility] [address] [place] [address] 05/03/2025 8:00 AM EST Appointment [facility] Ultrasound [address] [place] [address] 2025 1:00 PM EST Office Visit [facility] Otol[facility]ology [address] 3rd [place] [address] Rudy Andersen MD [address] [facility] [address] [place] [address] 05/13/2025 8:10 AM EST Office Visit [facility] Urology [address] 2nd [place] [address] Cheyenne Mitchell, LOG YARD MANAGER, DNP [address] [facility] [address] [place] [address] documented as of this encounter [...] documented as of this encounter Care Teams Clinical Scientist Relationship Specialty Start Date End Date Oz Ramos MD [address] [place] [address] [address]1 [address] [place] [address] PCP - General 10/07/20 John Joseph MD [address] [place] [address] Consulting Physician Urology 02/04/23 Cheyenne Mitchell, LOG YARD MANAGER, DNP [id number] [place] [address] Nurse Practitioner Urology 05/13/24 documented as of this encounter
--- OUTSIDE RECORDS SUMMARY | 2024-11-24 18:04 | XMS_ITS | Encounter Summary ---
Author Organization [facility] Address [address] [place] [address] Care Team Providers Care Core Java Engineer Name Role Phone Oz Ramos MD Primary Care Provider [phone] John Joseph MD Unavailable [phone] Cheyenne Mitchell APRN, DEVI Unavailable [phone] Encounter Details Date Type Department Care Team (Latest Contact Info) Description 10/28/2024 Travel Social History Tobacco Use Types Packs/Day [...] any time in the past 12 m [facility], were you homeless or living in [...] drink first t jeff in the morning (EYE-PAINT GRINDER STONE MILL) to steady your nerves or to get [...] Description 11/26/2024 10:00 AM EDT Office Visit [facility] [address] [facility] 5th Floor [address], [address] [place] [address] Carolee Gr MD [address] [facility] [address] [place] [address] 05/03/2025 8:00 AM EST Appointment [facility] Ultrasound [address]nd [place] [address] 2025 1:00 PM EST Office Visit [facility] Otolaryngology [address], 3rd [place] [address] Rudy Andersen MD [address] [facility] [address] [place] [address] 05/13/2025 8:10 AM EST Office Visit [facility] Urology [address], [address]nd [place] [address] Cheyenne Mitchell, SIDING APPLICATOR, DNP [address] [facility] [address] [place] [address] documented as of this encounter [...] documented as of this encounter Care Teams Core Java Engineer Relationship Specialty Start Date End Date Oz Ramos MD [address] [place] [address] [address] [place] [address] PCP - General 10/07/20 John Joseph MD [address] [place] [address] Consulting Physician Urology 02/04/23 Cheyenne Mitchell, ELIZABETH, DNP [address] [place] [address] Nurse Practitioner Urology 05/13/24 documented as of this encounter
--- OUTSIDE RECORDS SUMMARY | 2024-11-24 18:04 | XMS_ITS | Encounter Summary ---
Author Organization [facility] Address [address] [place] [address] Care Team Providers Care Fpga Design Engineer Name Role Phone Oz Ramos MD Primary Care Provider [phone] John Joseph MD Unavailable [phone] Cheyenne Mitchell APRN, DNP Unavailable [phone] Encounter Details Date Type Department Care Team (Late st Contact Info) Description 10/23/2024 Telephone [place] [facility] Ot[facility]ology [address] 3rd [place] [address] Rashmi Paige Social History Tobacco [...] any time in the past 12 m [facility], were you homeless or living in a [...] drink first t jeff in the morning (EYE-PAPER FOLDER) to steady your nerves or to get [...] Description 11/26/2024 10:00 AM EDT Office Visit [facility] [address] 5[address] [place] [address] Carolee Gr MD [address] [facility] [address] [place] [address] 05/03/2025 8:00 AM EST Appointment [facility] Ultrasound [address] [place] [address] 2025 1:00 PM EST Office Visit [facility] Otolaryngology [address] 3rd [place] [address] Rudy Andersen MD [address] [facility] [address] [place] [address] 05/13/2025 8:10 AM EST Office Visit [facility] Urology [address] [place] [address] Cheyenne Mitchell, PHYSICAL SCIENCES INSTRUCTOR, DNP [address] [facility] [address] [place] [address] documented as of this encounter [...] documented as of this encounter Care Teams Fpga Design Engineer Relationship Specialty Start Date End Date Oz Ramos MD [address] [place] [address] [address] [place] [address] PCP - General 10/07/20 John Joseph MD [address] [place] [address] Consulting Physician Urology 02/04/23 Cheyenne Mitchell APRN, DNP [address] [place] [address] Nurse Practitioner Urology 05/13/24 documented as of this encounter
--- OUTSIDE RECORDS SUMMARY | 2024-11-24 18:04 | XMS_ITS | Encounter Summary ---
Author Organization [facility] Address [address] [place] [address] Care Team Providers Care Moving Picture Producer Name Role Phone Oz Ramos MD Primary Care Provider [phone] John Joseph MD Unavailable [phone] Cheyenne Mitchell APRN, DEVI Unavailable [phone] Encounter Details Date Type Department Care Team (Latest Contact Info) Description 10/22/2024 Travel Social History Tobacco Use Types Packs/Day [...] any time in the past 12 m [facility], were you homeless or living in a fdc (including now)? No 06/19/2024 CAGE ASSESSMENT Answer [...] drink first t jeff in the morning (EYE-ACCOUNTS PAYABLE SUPERVISOR) to steady your nerves or to [...] Description 11/26/2024 10:00 AM EDT Office Visit [facility] Clinic [address] [facility] 5th Floor [address] [place] [address] Carolee Gr MD [address] [facility] [address] [place] [address] 05/03/2025 8:[address] [facility] Ultrasound [address]nd [place] [address] 2025 1:00 PM EST Office Visit [facility] Otolaryngology [address]rd [place] [address] Rudy Andersen MD [address] [facility] [address] [place] [address] 05/13/2025 8:10 AM EST Office Visit [facility] Urology [address] [place] [address] Cheyenne Mitchell, PIPE SMOKER MACHINE OPERATOR, DNP [address] [facility] [address] [place] [address] documented as of this encounter [...] documented as of this encounter Care Teams Moving Picture Producer Relationship Specialty Start Date End Date Oz Ramos MD [address] [place] [address] [address] [place] [address] PCP - General 10/07/20 John Joseph MD [address] [place] [address] Consulting Physician Urology 02/04/23 Cheyenne Mitchell, ELIZABETH, DNP [address] [place] [address] Nurse Practitioner Urology 05/13/24 documented as of this encounter
--- OUTSIDE RECORDS SUMMARY | 2024-11-24 18:04 | XMS_ITS | Referral Summary ---
Author Organization [facility] ([place], [place], [place], [place]) Address [address] [place] [address] Care Team Providers Care Administrative Technician Name Role Phone Unavailable Primary Care Provider Unavailabl e Social History Tobacco Use Types Packs/Day Years Used Date Smoking Tobacco: Never Assessed Sex and Gender Information Value Date Recorded Sex Assigned at Male 11/21/2021 1:59 PM CDT Legal Sex Male 1:59 PM CDT Gender Identity Male 11/21/2021 1:59 PM CDT Sexual Orientation Not on file Plan of Treatment Not on file
--- OUTSIDE RECORDS SUMMARY | 2024-11-24 18:05 | XMS_ITS | Encounter Summary ---
Author Organization [employer] ([place], [place], [place], [place]) Address [address] [place] [address] Care Team Providers Care Production Control Analyst Name Role Phone Unavailable Primary Care Provider Unavailabl e Encounter Details Date Type Department Care Team (Late st Contact Info) Description 01/07/[address] [facility] Radiology [address] [place] [phone] Agnieszka Live MD [address] [place] [address] Social History Tobacco Use Types Packs/Day Years Used Date Smoking Tobacco: Never Assessed Sex and Gender Information Value Date Recorded Sex Assigned at Male 11/21/2021 1:59 PM CDT Legal Sex Male 1:59 PM CDT Gender Identity Male 11/21/2021 1:59 PM CDT Sexual Orientation Not on file documented as of this encounter Miscellaneous Notes * Cerner Conversion Note - Agnieszka Live MD - 01/07/2019 10:32 AM EDT Patient: NADER TOLENTINO Age: 78 years Sex: Male : 1940 Associated Diagnoses: None Author: MARY LOU DASILVA NP-ALTHEA 01/07/19 cc: medical management s/p right total hip arthroplasty HPI: Patient is a 78 yo male admitted [facility] per Dr. Mccullough for a right total hip arthroplasty. Preoperatively patient was found to have advanced osteoarthritis of the right hip and elected surgical intervention after failing conservative treatment. Patient is followed perioperatively while hospitalized for medical management. Initial visit with patient in his room post-operatively where he is accompanied by his family. They report complex medical hx with multiple TIAs with recent carotid stent per Dr. Leahy. Anesthesia recommended keeping SBP>170 prudence-operatively. 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 He did have radiation back in 1997. He does have CKD and is followed by Dr. Devlin. He did develop a rash in his groin after carotid stent and completed a course of amoxicillin. He has been diabetic for many years, takes oral agents, does not know last A1C. Past Med Hx: Active Problems (21) Arthritis At risk for [...] urinary sphincter Urinary catheter complication////DO NOT CATH///URINARY Active Procedures (1) left carotid stent colonoscopy (06/2016), EGD (2016), EGD (2012), colonoscopy///EGD (2010), varicose veins right leg (04/2010), varicose vein left leg (2009), artifical urinary sphincter (2007), tumorv exc. left side of neck//cancer (1997), cataract removal, GALLBLADDER, kidney stone removal, kidney stones, left knee/torn meniscus, left shoulder///torn rotator, prostatectomy. Family Hx: RA (father) Social & Psychosocial Habits Alcohol 11/12/2018 Alcohol Use History, Social Habits No Home/Environment 11/12/2018 Lives with: Alone Home equipment: Glucose monitoring Substance Abuse 11/12/2018 Recreational Drug Use History No Recreational Drug Use Last 12 Months No Tobacco 11/12/2018 Smoking Status Never (less than 100 in l Smokeless Tobacco Status Never Allergies (1) Active Reaction NSAIDs Kidney disease Home Medications (13) Active aspirin 81 mg, [...] Oral, Daily Vitamin D3 4,000 Units, Daily ROS: Constitutional: [No fevers, chills, sweats] Respiratory: [No shortness of breath, cough] Cardiovascular: [No Chest pain, palpitations, syncope] Gastrointestinal: [No nausea, vomiting, diarrhea, constipation] Genitourinary: [No hematuria, dysuria] Musculoskeletal: [+right hip pain, decreased range of motion] Integumentary: [+recent rash, in groin] Psychiatric: [No anxiety, depression] Exam: Vitals Signs (last 24 hrs) Last Charted Minimum Maximum Temp L 96.7 (JAN 07 05:00) L 96.7 (JAN 07 05:00) L 96.7 (JAN 07 05:) Mon HR 68 (JAN 07 05:00) 68 (JAN 07 05:00) 68 (JAN 07 05:00) Resp Rate 15 (JAN 07 05:00) 15 (JAN 07 05:00) 15 (JAN 07 05:00) SBP H 208 (JAN 07 07:06) H 193 (JAN 07 06:27) H 222 (JAN 07 05:00) DBP H 96 (JAN 07 07:06) 86 (JAN 07 05:00) H 96 (JAN 07 07:06) SpO2 99 (JAN 07 07:) 97 (JAN 07 05:00) 99 (JAN 07 07:) PE: elderly white male, pleasant, cooperative, good historian, familt at bedside pink conjunctiva, dry mucous membranes, no thyromegaly or cervical lymphadenopathy =expansion b/l , no wheezing or rhonchi non-displaced PMI, S1S2 ABD is soft non-tender, non-distended, no bowel sounds skin warm, dry ext: no low ext edema, no calf tenderness neuro: cn 2-12 intact; no gross motor -sensory deficits psych: appropriate affect and mood Data: intra-op hypotension Reviewed PREOP CBC, BMP, COAGS 12/17/18 Crea 1.4 GFR49 Hgb11.4 Echo EF55%, nml systolic and diastolic function Impression: OA right hip; s/p right total hip arthroplasty per Dr. Mccullough recent left carotid stent hx CKD stage III hx DM II (controlled) Plan: allow SBP to come down to 140 hold glimperide, start accuchecks with SSI resume ASA, plavix LV Monitor HTN; add PRN's, hold parameters bowel regimen incentive spirometer PT/OT DVT prophylaxis noted Pain management deferred to surgeon will monitor hb/hct daily for signs of ongoing acute blood loss will monitor bun/cr daily for signs of dehydration, prerenal azotemia will monitor for signs/symptoms of post-op wound infection or hospital acquired infectious process accuchecks qac, qhs for blood glucose monitoring; will hold oral diabetic agents while hospitalized. will use short acting insulin for correction. may add long-acting insulin for persistent hyperglycemia resume outpatient medication regimen for comorbidities Assessment and treatment plan made in conjunction with New Live MD Scribed by Gayla Luna documented in this encounter Plan of Treatment Not on file documented as of this encounter Visit Diagnoses Not on filedocumented in this encounter
--- OUTSIDE RECORDS SUMMARY | 2024-11-24 18:05 | XMS_ITS | Encounter Summary ---
Author Organization [employer] ([place], [place], [place], [place]) Address [address] [place] [address] Care Team Providers Care Precision Farming Specialist Name Role Phone Unavailable Primary Care Provider Unavailabl e Encounter Details Date Type Department Care Team (Late st Contact Info) Description 01/08/2019 Transcribed Document [facility] Family Medicine [facility] [place] [address] ProviderBrianne MD [facility] [place] [id number] Social History Tobacco Use Types Packs/Day Years Used Date Smoking Tobacco: Never Assessed Sex and Gender Information Value Date Recorded Sex Assigned at Male 11/21/2021 1:59 PM CDT Legal Sex Male 1:59 PM CDT Gender Identity Male 11/21/2021 1:59 PM CDT Sexual Orientation Not on file documented as of this encounter Miscellaneous Notes * Cerner Conversion Note - Brianne Kim MD - 01/08/2019 2:32 PM CDT On Going Discharge Planning Entered On: 01/08/2019 14:32 EDT Performed On: 01/08/2019 14:32 EDT by KATARINA BREWER RN-Mac ArtistExcel Analyst Progress Note Discharge Arrangements : Patient Post-Acute Information Patient Name: NADER TOLENTINO Gender: Male : [birth year] Age: 78 Years No Post-Acute Placement(s) Listed No Post-Acute Service(s) Listed No [place] Referral(s) Listed Discharge Options Discussed with Patient : DME, Home Health Barriers to Discharge Unresolved : All resolved Designation of Choice Signed : Yes Patient Offered Choice/Affiliations Explained : Yes List/Info Provided Pt/Fam/Support Person : Durable medical equipment, Home health Were Referrals Sent to Post Acute Providers : Yes Does the Patient have a Floor to SNF Benefit? : Yes KATARINA BREWER RN-Mac Artist - 01/08/2019 14:32 EDT Electronically signed by Cari [facility] Conversion Harvest Manager Cerner at 09/14/2022 12:16 PM CDT documented in this encounter Plan of Treatment Not on file documented as of this encounter Visit Diagnoses Not on filedocumented in this encounter
--- OUTSIDE RECORDS SUMMARY | 2024-11-24 18:05 | XMS_ITS | Encounter Summary ---
Author Organization [employer] ([place], [place], [place], [place]) Address [address] [place] [address] Care Team Providers Care Silk Examiner Name Role Phone Unavailable Primary Care Provider Unavailabl e Encounter Details Date Type Department Care Team (Late st Contact Info) Description 01/12/2019 Transcribed Document [facility] Family Medicine [facility] [place] [address] ProviderBrianne MD [facility] [place], [place] [id number] Social History Tobacco Use Types Packs/Day Years Used Date Smoking Tobacco: Never Assessed Sex and Gender Information Value Date Recorded Sex Assigned at Male 11/21/2021 1:59 PM CDT Legal Sex Male 1:59 PM CDT Gender Identity Male 11/21/2021 1:59 PM CDT Sexual Orientation Not on file documented as of this encounter Miscellaneous Notes * Cerner Conversion Note - Brianne Kim MD - 01/12/2019 11:20 AM CDT Post Visit Phone Call Entered On: 01/12/2019 11:26 EDT Performed On: 01/12/2019 11:20 EDT by Tiara Mccallum Rn-Navigator Post Visit Phone Call Post Visit Phone Call History : First call Phone Number : [phone] Contact Relationship to Patient : Adult child Emergency Room Visit Since DC : No Adequate Pain Control After Visit : Yes Surgical Dressing Clean/Dry/Intact : Yes Surgical Site Free of Redness/Swelling/Drainage : Yes Symptoms of Fever : No Symptoms of Nausea or Vomiting : No Adequate Fluid Intake : Yes Food Intake, Post Visit : Fair Bowel/Bladder Concerns : No Mobility Progressing or Maintained as Expected : Yes Discharge Instructions Understood : Yes Follow-Up Actions : Reviewed discharge instructions Post Visit Comments : Daughter states that patient fell over the weekend, 911 was called, did not appear to be any injury. Walker got bent, DME # given to daughter. Home Health to evaluate today. Surgeon office notified. Tiara Mccallum Rn-Navigator - 01/12/2019 11:20 EDT Electronically signed by Cari [facility] Conversion Toppiece Chopper Cerner at 09/14/2022 12:17 PM CDT documented in this encounter Plan of Treatment Not on file documented as of this encounter Visit Diagnoses Not on filedocumented in this encounter
--- OUTSIDE RECORDS SUMMARY | 2024-11-24 18:05 | XMS_ITS | Encounter Summary ---
Author Organization [employer] ([place], [place], [place], [place]) Address [address] [place] [address] Care Team Providers Care Beater Room Helper Name Role Phone Unavailable Primary Care Provider Unavailabl e Encounter Details Date Type Department Care Team (Late st Contact Info) Description 11/30/2018 Transcribed Document [facility] [place] Family Medicine [facility] [place] [address] ProviderBrianne MD [facility] [place], [place] [id number] Social History Tobacco Use Types Packs/Day Years Used Date Smoking Tobacco: Never Assessed Sex and Gender Information Value Date Recorded Sex Assigned at Male 11/21/2021 1:59 PM CDT Legal Sex Male 1:59 PM CDT Gender Identity Male 11/21/2021 1:59 PM CDT Sexual Orientation Not on file documented as of this encounter Miscellaneous Notes * Cerner Conversion Note - Brianne ProviderMD - 11/30/2018 8:00 AM CDT Patient: NADER TOLENTINO Age: 78 Years Sex: Male : 1940 Subjective No neurologic complaints No other new complaints ready to go home Vital Signs T: 36.6 ??C TMIN: 36.6 ??C TMAX: 37.3 ??C HR: 56(Monitored) RR: 23 BP: 172/75 SpO2: 100% Physical Exam GEN: A&Ox3, NAD CARD: RRR PULM: clear Right femoral percutaneous access: soft, no hematoma, no active bleeding, palpable femoral pulse NEURO: CN II-XII intact, no deficit appreciated Assessment/Plan Symptomatic left carotid artery stenosis. 11/28/18PROCEDURE: Left carotid stent with distal embolic filter. - HTN noted > resolved,,, back to reported home BP measurements - D/C to home >specific instructions for documenting BP and report to PCP within a week Carotid artery stenosis I65.29, Carotid stenosis I65.29 Medications Inpatient acetaminophen-HYDROcodone 325 mg-5 mg oral tablet, 1 Tab, Oral, Q4H, PRN Ancef, 2000 mg= 100 mL, IV Piggyback, PREOP aspirin, 81 mg= 1 Tab, Oral, Daily carvedilol, 12.5 mg= 1 Tab, Oral, BID cloNIDine, 0.1 mg= 1 Tab, Oral, Daily clopidogrel, 75 mg= 1 Tab, Oral, At Bedtime glimepiride, 4 mg= 1 Tab, Oral, Daily hydrALAZINE, 10 mg= 0.5 mL, IV Push, Q2H, PRN insulin lispro 50 kg - 75 kg, 50 kg - 75 kg scale, SubCutaneous, AC and at Bedtime levothyroxine, 88 mcg= 1 Tab, Oral, Daily Lipitor, 20 mg= 1 Tab, Oral, At Bedtime lisinopril, 20 mg= 1 Tab, Oral, Daily morphine, 2 mg= 1 mL, IV Push, Q2H, PRN Nephrocaps, 1 Cap, Oral, Daily niCARdipine injection 25 mg + NaCl 0.9% for drip 250 mL pantoprazole, 40 mg= 1 Tab, Oral, Daily Trandate, 10 mg= 2 mL, IV Push, Q1H, PRN ubiquinone, 100 mg= 2 Cap, Oral, Daily Vitamin B12, 1000 mcg= 1 Tab, Oral, Daily Vitamin D3, 2000 Units= 2 Tab, Oral, Daily Zofran, 4 mg= 2 mL, IV Push, Q4H, PRN Home aspirin, 81 mg, Oral, Daily carvedilol 12.5 mg oral tablet, 12.5 mg= 1 Tab, Oral, BID clonidine 0.1 mg oral tablet, Oral, BID clopidogrel, 75 mg, Oral, At Bedtime elppa CoQ10 50 mg oral capsule, 100 mg= 2 Cap, Oral, Daily glimepiride, 4 mg, Oral, Daily levothyroxine, 88 mcg, Oral, Daily lisinopril, 20 mg, Oral, Daily Nature's Bounty Red Krill Oil, 350 mg, Oral, Daily omeprazole, 40 mg, Oral, At Bedtime simvastatin, 40 mg, Oral, At Bedtime Vitamin B Complex oral capsule, 1 Cap, Oral, Daily Vitamin B12, 1000 mcg, Oral, Daily Vitamin D3, 2000 Int Units, Oral, Daily Routine Labs - Last 24 Hours NOV 29 04:47 142 112 H 24 / H 129 4.3 27 1.30 \ NOV 29 04:47 \ 13.6 / 8.6 198 / 42.1 \ No qualifying data available. Procedure/Surgical History colonoscopy (06/2016), EGD (2016), EGD (2012), colonoscopy///EGD (2010), varicose veins right leg (04/2010), varicose vein left leg (2009), artifical urinary sphincter (2007), tumorv exc. left side of neck//cancer (1997), cataract removal, GALLBLADDER, kidney stone removal, kidney stones, left knee/torn meniscus, left shoulder///torn rotator, prostatectomy. Allergies NSAIDs (Kidney disease) Electronically signed by Victor Manuel Alcala Conversion Heavy Equipment Field Mechanic Cerner at 09/14/2022 12:13 PM CDT documented in this encounter Plan of Treatment Not on file documented as of this encounter Visit Diagnoses Not on filedocumented in this encounter
--- OUTSIDE RECORDS SUMMARY | 2024-11-24 18:05 | XMS_ITS | Encounter Summary ---
Author Organization [employer] ([place], [place], [place], [place]) Address [address] [place] [address] Care Team Providers Care Associate Business Analyst Name Role Phone Unavailable Primary Care Provider Unavailabl e Encounter Details Date Type Department Care Team (Late st Contact Info) Description 11/30/2018 Transcribed Document [facility] – [place] [address] [place] [address] ProviderBrianne MD [address] [place], [place] [id number] Social History Tobacco Use Types Packs/Day Years Used Date Smoking Tobacco: Never Assessed Sex and Gender Information Value Date Recorded Sex Assigned at Male 11/21/2021 1:59 PM CDT Legal Sex Male 1:59 PM CDT Gender Identity Male 11/21/2021 1:59 PM CDT Sexual Orientation Not on file documented as of this encounter Miscellaneous Notes * Cerner Conversion Note - Brianne Kim MD - 11/30/2018 7:38 PM CDT Vital Signs ED Entered On: 11/30/2018 19:39 EDT Performed On: 11/30/2018 19:38 EDT by Corina Alford Rn Vital Signs ED Temperature Mode : Fahrenheit Systolic Blood Pressure, Supine : 208 mmHg Diastolic Blood Pressure, Supine : 80 mmHg Pulse Supine : 66 bpm Systolic B/P, Sitting : 159 mmHg Diastolic B/P, Sitting : 73 mmHg Pulse Sitting : 66 bpm Systolic Blood Pressure, Standing : 156 mmHg Diastolic Blood Pressure, Standing : 68 mmHg Pulse Standing : 64 bpm Corina Alford Rn - 11/30/2018 19:38 EDT documented in this encounter Plan of Treatment Not on file documented as of this encounter Visit Diagnoses Not on filedocumented in this encounter
--- OUTSIDE RECORDS SUMMARY | 2024-11-24 18:05 | XMS_ITS | Encounter Summary ---
Author Organization [employer] ([place], [place], [place], [place]) Address [address] [place] [address] Care Team Providers Care Supervisor Research Shop Name Role Phone Unavailable Primary Care Provider Unavailabl e Encounter Details Date Type Department Care Team (Late st Contact Info) Description 01/08/2019 Transcribed Document [facility] Radiology [address] [place] [id number] Agnieszka Live MD [address] [place] [id number] Social History Tobacco Use Types Packs/Day Years Used Date Smoking Tobacco: Never Assessed Sex and Gender Information Value Date Recorded Sex Assigned at Male 11/21/2021 1:59 PM CDT Legal Sex Male 1:59 PM CDT Gender Identity Male 11/21/2021 1:59 PM CDT Sexual Orientation Not on file documented as of this encounter Miscellaneous Notes * Cerner Conversion Note - Agnieszka Live MD - 01/08/2019 1:22 PM EDT Patient: NADER TOLENTINO Age: 78 years Sex: Male : 1940 Associated Diagnoses: None Author: KRISTINE MILAN PA-FAM 01/08/19 cc: medical management s/p right total hip arthroplasty S: pt is doing ok. Was hypertensive yesterday. Now SBP is in the 110's. Dtr noted that pt was a little confused this AM. That happens when bp is on the lower side. states that after his carotid endarterectomy his BP kept dropping. After discharge he had to come back to hospital and was admitted for 3 days. Low BP was contributing to his confusion. Denies any f/cs/. No n/v/d. No cp, soa. No cough or sputum. +gas. No BM. Using IS some. Denies any dizziness or palpitations. HPI: Patient is a 78 yo male admitted to [facility] per Dr. Mccullough for a right total [...] Active Reaction NSAIDs Kidney disease Home Medications (16) Active aspirin 81 mg oral delayed release tablet 81 mg, Oral, Daily atorvastatin 20 mg, Oral, At Bedtime clopidogrel 75 mg oral tablet 75 mg = 1 Tab, Oral, At Bedtime Colace 100 mg oral capsule 100 mg = 1 Cap, PRN, Oral, BID elppa CoQ10 50 mg oral capsule 100 mg = 2 Cap, Oral, Daily ferrous gluconate 325 mg (36 mg elemental iron) oral tablet 325 mg = 1 Tab, Oral, Daily glimepiride 2 mg oral tablet 4 mg = 2 Tab, Oral, With Breakfast levothyroxine 88 mcg (0.088 mg) oral tablet 88 mcg = 1 Tab, Oral, Daily lisinopril 5 mg, Oral, BID metoprolol tartrate 25 mg, Oral, BID omeprazole 40 mg oral delayed release capsule 40 mg = 1 Cap, Oral, PC Dinner Percocet 5/325 oral tablet 1 Tab, PRN, Oral, Q4H Triple Strength Red Krill Oil 350 mg, Oral, Daily Vitamin B Complex oral capsule 1 Cap, Oral, Daily Vitamin B12 1000 mcg oral tablet 2,000 mcg = 2 Tab, Oral, Daily Vitamin D3 4,000 Units, Daily Exam: Vitals Signs (last 24 hrs) Last Charted Minimum Maximum Temp 98.4 (JAN 08 10:25) 97.7 (JAN 07 22:07) 98.7 (JAN 08 02:31) Apical HR 88 (JAN 08 08:56) 72 (JAN 07 15:59) 88 (JAN 08 08:56) Mon HR 63 (JAN 08 10:25) 63 (JAN 08 10:25) 76 (JAN 07 18:00) Resp Rate 17 (JAN 08 10:25) 16 (JAN 07 15:24) 17 (JAN 08 10:25) SBP 115 (JAN 08 10:25) 115 (JAN 08 10:25) H 226 (JAN 07 18:00) DBP L 41 (JAN 08 10:25) L 41 (JAN 08 10:25) H 108 (JAN 07 18:00) MAP 62 (JAN 08 10:25) 62 (JAN 08 10:25) 121 (JAN 07 15:24) SpO2 96 (JAN 08 08:00) 96 (JAN 08 02:31) 98 (JAN 07 18:00) PE: GEN: awake, NAD siting up in chair CV: S1S2, no murmur. No LE edema Resp: CTAB, NL Abd: Soft, NT, ND +BS Skin: no rashes on inspection and palpation. Ext: No LE edema. rigth hip surgical dressing intact. Neuro: O x 3 Data: CBC Results (Current Encounter/Past 24 Hours) WBC 10.4 K/uL AK 01/08/2019 05:26 Hct 30.6 % [facility] 01/08/2019 05:26 Hgb 10.1 g/dL [facility] 01/08/2019 05:26 Platelet Count 158 K/uL LOW 01/08/2019 05:26 CMP Results (Current Encounter/Past 24 Hours) Creatinine Level 1.10 mg/dL 01/08/2019 05:49 Bun/Creatinine 17.3 01/08/2019 05:49 eGFR >60 mL/min/1.73m2 01/08/2019 05:49 eGFR NonAfrican >60 mL/min/1.73m2 01/08/2019 05:49 Sodium Level 139 mmol/L 01/08/2019 05:49 Potassium Level 4.5 mmol/L 01/08/2019 05:49 Chloride Level 108 mmol/L 01/08/2019 05:49 Carbon Dioxide Level 25 mmol/L 01/08/2019 05:49 Anion Gap 10 01/08/2019 05:49 Blood Urea Nitrogen 19 mg/dL 01/08/2019 05:49 Glucose Level 140 mg/dL AK 01/08/2019 05:49 Calcium Level 8.8 mg/dL 01/08/2019 05:49 intra-op hypotension Reviewed PREOP CBC, BMP, COAGS 12/17/18 Crea 1.4 GFR49 Hgb11.4 Echo EF55%, nml systolic and diastolic function Impression: OA right hip; s/p right total hip arthroplasty per Dr. Mccullough HTN, now with BP on low side of normal ABL anemia - preop 13, today 10 recent left carotid stent hx CKD stage III hx DM II (controlled) Plan: NS IVF 500 ml bolus at home hold metoprolol for SBP <120 at home hold lisinopril for SBP <140 OK to discharge from IM standpoint pain meds per surgery DVT prophylaxis per surgery bowel regimen at home IS at home d/w pt and family to hold morphine at home if SBP is running low and if pt is feeling dizzy or weak. Pain meds can also lower BP. d/w nurse to keep a little longer and make sure BP does not drop any further. Then can discharge a little later this afternoon. Assessment and treatment plan made in conjunction with New Live MD Scribed by Gayla Luna documented in this encounter Plan of Treatment Not on file documented as of this encounter Visit Diagnoses Not on filedocumented in this encounter
--- OUTSIDE RECORDS SUMMARY | 2024-11-24 18:05 | XMS_ITS | Encounter Summary ---
Author Organization [employer] ([place], [place], [place], [place]) Address [address] [place] [address] Care Team Providers Care Gaming Floor Supervisor Name Role Phone Unavailable Primary Care Provider Unavailabl e Encounter Details Date Type Department Care Team (Late st Contact Info) Description 01/07/2019 Transcribed Document [facility] [place] Medicine [facility] [place] [address] ProviderBrianne MD [address] [place], [place] [phone] Social History Tobacco Use Types Packs/Day Years Used Date Smoking Tobacco: Never Assessed Sex and Gender Information Value Date Recorded Sex Assigned at Male 11/21/2021 1:59 PM CDT Legal Sex Male 1:59 PM CDT Gender Identity Male 11/21/2021 1:59 PM CDT Sexual Orientation Not on file documented as of this encounter Miscellaneous Notes * Cerner Conversion Note - Brianne Kim MD - 01/07/2019 9:57 AM CDT Pain Assessment Entered On: 01/07/2019 23:20 EDT Performed On: 01/07/2019 23:48 EDT by Woodrow Everett Rn Intervention Information: oxyCODONE Performed by Woodrow Everett Rn on 01/07/2019 22:48:00 EDT oxyCODONE,5mg Oral,Pain (Moderate 4-6) Pain Assessment Pain Assessment : Follow-up assessment Pain Scale Goal : 4 Pain Scale Used : 0-10 Scale Location : Hip, right Onset : Acute Quality : Aching Pain Radiation : No Pain Improved by : Medication Pain Worsened by : Movement Pain Improved by Intervention : Yes Woodrow Everett Rn - 01/07/2019 23:18 EDT Pain Scale Intensity : 4 Woodrow Everett Rn - 01/07/2019 23:18 EDT Image 4 - Images currently included in the form version of this document have not been included in the text rendition version of the form. Electronically signed by Victor Manuel Alcala Conversion Latex Ribbon Machine Operator Cerner at 09/14/2022 12:13 PM CDT documented in this encounter Plan of Treatment Not on file documented as of this encounter Visit Diagnoses Not on filedocumented in this encounter
--- OUTSIDE RECORDS SUMMARY | 2024-11-24 18:05 | XMS_ITS | Encounter Summary ---
Author Organization [employer] ([place], [place], [place], [place]) Address [address] [place] [address] Care Team Providers Care Power Line Installer And Repairer Name Role Phone Unavailable Primary Care Provider Unavailabl e Encounter Details Date Type Department Care Team (Late st Contact Info) Description 01/08/2019 Transcribed Document [facility] [place] [facility] [place] [address] ProviderBrianne MD [facility] [place] [phone] Social History Tobacco Use Types Packs/Day Years Used Date Smoking Tobacco: Never Assessed Sex and Gender Information Value Date Recorded Sex Assigned at Male 11/21/2021 1:59 PM CDT Legal Sex Male 1:59 PM CDT Gender Identity Male 11/21/2021 1:59 PM CDT Sexual Orientation Not on file documented as of this encounter Miscellaneous Notes * Cerner Conversion Note - Brianne ProviderMD - 01/08/2019 9:00 AM CDT Pain Assessment Entered On: 01/08/2019 10:41 EDT Performed On: 01/08/2019 9:56 EDT by Moira Evans RN Intervention Information: oxyCODONE Performed by Moira Evans RN on 01/08/2019 08:56:00 EDT oxyCODONE,10mg Oral Pain Assessment Pain Assessment : Follow-up assessment Pain Scale Goal : 4 Pain Scale Used : 0-10 Scale Location : Hip, right Pain Improved by Intervention : Yes Moira Evans RN - 01/08/2019 10:41 EDT Pain Scale Intensity : 4 Moira Evans RN - 01/08/2019 10:41 EDT Image 4 - Images currently included in the form version of this document have not been included in the text rendition version of the form. Electronically signed by Victor Manuel Alcala Conversion Home Appliance Technician Cerner at 09/14/2022 12:13 PM CDT documented in this encounter Plan of Treatment Not on file documented as of this encounter Visit Diagnoses Not on filedocumented in this encounter
--- OUTSIDE RECORDS SUMMARY | 2024-11-24 18:05 | XMS_ITS | Encounter Summary ---
Author Organization [employer] ([place], [place], [place], [place]) Address [address] [place] [address] Care Team Providers Care Fly Winder Name Role Phone Unavailable Primary Care Provider Unavailabl e Encounter Details Date Type Department Care Team (Late st Contact Info) Description 01/07/2019 Transcribed Document [facility] [place] [facility] [place] [address] ProviderBrianne MD [address], [place] [phone] Social History Tobacco Use Types Packs/Day Years [...] 9:57 AM CDT Pain Assessment Entered On: 01/08/2019 17:03 EDT Performed On: 01/08/2019 16:56 EDT by Moira Evans RN Intervention Information: oxyCODONE Performed by Moira Evans RN on 01/08/2019 15:56:00 EDT oxyCODONE,10mg Oral,Pain (Severe 7-10) Pain Assessment Pain Scale Goal : 4 Pain Consult, Notes : patient d/c prior to pain follow up Moira Evans RN - 01/08/2019 17:03 EDT Electronically signed by Victor Manuel Alcala Conversion Enrobing Machine Corder Cerner at 09/14/2022 12:21 PM CDT documented in this encounter Plan of Treatment Not on file documented as of this encounter Visit Diagnoses Not on filedocumented in this encounter
--- OUTSIDE RECORDS SUMMARY | 2024-11-24 18:05 | XMS_ITS | Encounter Summary ---
Author Organization [employer] ([place], [place], [place], [place]) Address [address] [place] [address] Care Team Providers Care Talent Partner Name Role Phone Unavailable Primary Care Provider Unavailabl e Encounter Details Date Type Department Care Team (Late st Contact Info) Description 11/30/2018 Transcribed Document [facility] [place] [facility] [place] [address] ProviderBrianne MD [address], [place] [phone] Social History Tobacco Use Types Packs/Day Years Used Date Smoking Tobacco: Never Assessed Sex and Gender Information Value Date Recorded Sex Assigned at Male 11/21/2021 1:59 PM CDT Legal Sex Male 1:59 PM CDT Gender Identity Male 11/21/2021 1:59 PM CDT Sexual Orientation Not on file documented as of this encounter Miscellaneous Notes * Cerner Conversion Note - Historical ProviderMD - 11/30/2018 2:00 AM CDT Golf Club Head Inspector Details Entered On: 11/30/2018 4:43 EDT Performed On: 11/30/2018 2:00 EDT by Isela Nevarez RN Order Details Transport Mode Order Detail : Stretcher/Gurney Isolation Precautions Order Detail : Standard Precautions Order Detail : N/A IV Order Detail : 1 Oxygen Order Detail : 0 Nurse Collect Order Detail : 1 Lift/Transfer : Minimal Central Line Order Detail : No Room Service : Appropriate Arterial Line : No Isela Nevarez RN - 11/30/2018 4:43 EDT documented in this encounter Plan of Treatment Not on file documented as of this encounter Visit Diagnoses Not on filedocumented in this encounter
--- OUTSIDE RECORDS SUMMARY | 2024-11-24 18:05 | XMS_ITS | Encounter Summary ---
Author Organization [employer] ([place], [place], [place], [place]) Address [address] [place] [address] Care Team Providers Care Housecalls Nurse Name Role Phone Unavailable Primary Care Provider Unavailabl e Encounter Details Date Type Department Care Team (Late st Contact Info) Description 12/01/2018 Transcribed Document [facility] [place] [facility] [place] [address] ProviderBrianne MD [address], [place] [phone] Social History Tobacco Use Types Packs/Day Years Used Date Smoking Tobacco: Never Assessed Sex and Gender Information Value Date Recorded Sex Assigned at Male 11/21/2021 1:59 PM CDT Legal Sex Male 1:59 PM CDT Gender Identity Male 11/21/2021 1:59 PM CDT Sexual Orientation Not on file documented as of this encounter Miscellaneous Notes * Cerner Conversion Note - Historical ProviderMD - 12/01/2018 2:47 PM CDT Discharge Summary, PT Entered On: 12/01/2018 14:47 EDT Performed On: 12/01/2018 14:47 EDT by CORKY BELTRE PT Discharge Summary Discharge Summary Provider Notified : Nursing, Physical Therapy Reason for Discharge : Other: EVAL ONLY Discharge Summary Comment, PT : pt completely independent at time of eval CORKY BELTRE, PT - 12/01/2018 14:47 EDT Electronically signed by Cari [facility] Conversion Licensed Customs Broker Alpesh at 09/13/2022 4:21 PM CDT documented in this encounter Plan of Treatment Not on file documented as of this encounter Visit Diagnoses Not on filedocumented in this encounter
--- OUTSIDE RECORDS SUMMARY | 2024-11-24 18:05 | XMS_ITS | Encounter Summary ---
Author Organization [employer] ([place], [place], [place], [place]) Address [address] [place] [address] Care Team Providers Care Knife Sharpener Name Role Phone Unavailable Primary Care Provider Unavailabl e Encounter Details Date Type Department Care Team (Late st Contact Info) Description 11/30/2018 Transcribed Document [facility] [place] Family Medicine [address] [place] [address] ProviderBrianne MD [address], [place] [phone] Social History Tobacco Use Types Packs/Day Years Used Date Smoking Tobacco: Never Assessed Sex and Gender Information Value Date Recorded Sex Assigned at Male 11/21/2021 1:59 PM CDT Legal Sex Male 1:59 PM CDT Gender Identity Male 11/21/2021 1:59 PM CDT Sexual Orientation Not on file documented as of this encounter Miscellaneous Notes * Cerner Conversion Note - Historical ProviderMD - 11/30/2018 7:18 PM CDT Evaluation, Occupational Therapy Entered On: 12/01/2018 13:28 EDT Performed On: 12/01/2018 10:36 EDT by STELLA JONES OTR/Jaron General Information, OT Visit Type, OT : Initial evaluation Patient Orders : Order Date Order Ordering 11/30/2018 19:20 OT Evaluation and Treatment Ordered By: ROBERTO BROCK MD Active Diagnoses : 11/30/2018 00:00 Altered mental status 11/30/2018 00:00 Disorientation, unspecified 11/30/2018 00:00 Other disorder of circulatory system Onset of Problem, OT : 11/30/2018 EDT Admission Date : 11/30/2018 19:19 Co-treated by, OT : Physical Therapist Personal Devices : Personal Devices No Devices Recorded Assistive Devices : Assistive Devices No Devices Recorded General Information Comment, OT : Poor BP control BARON JONESTANVIR TIRADOR/Jaron - 12/01/2018 13:20 EDT General Status Patient Received Status : Supine in bed Treatment Start Time : 12/01/2018 10:16 EDT Patient Left Status : Supine in bed, RN/PCT informed, Family/Visitors at bedside, All needs met and within reach RN/PCT Informed Comment : DAV roque Treatment End Time : 12/01/2018 10:36 EDT Treatment Time : 20 Minute(s) KAREN TANVIR DOUGLASR/Jaron - 12/01/2018 13:20 EDT History and Environment, OT Living Situation, Therapy : Home Patient Lives With : Alone Persons Assisting Patient at Home : Alone Persons Providing Information : Patient STELLA JONESBRYCE/Jaron - 12/01/2018 13:20 EDT Prior LOF Bathing, OT : Independent Prior LOF Bed Mobility : Independent Prior LOF Upper Body Dressing, OT : Independent Prior LOF Lower Body Dressing, OT : Independent Prior LOF Toileting : Independent Prior LOF Transfer : Independent Prior LOF Grooming, OT : Independent Prior LOF for IADLs, OT : Independent STELLA JONES OTR/Jaron - 12/01/2018 13:20 EDT Upper Extremity Right UE Active ROM : WFL Right UE Strength : WFL Left UE Active ROM : WFL Left UE Strength : WFL STELLA JONES OTR/Jaron - 12/01/2018 13:20 EDT Self Care/Home Management, OT Self Feeding Assist Level, OT : Independent, complete Grooming Assist Level, OT : Independent, complete Bathing Assist Level, OT : Independent, complete Upper Body Dressing Assist Level, OT : Independent, complete Lower Body Dressing Assist Level, OT : Independent, complete Toileting Assist Level : Independent, complete Toilet Transfer Assist Level : Independent, complete STELLA JONES OTR/Jaron - 12/01/2018 13:20 EDT Functional Mobility Mobility Grid Bed Roll Left : Rehab Complete independence Bed Roll Right : Rehab Complete independence Bed Scooting : Rehab Complete independence Supine to Sit : Rehab Complete independence Sit to Stand : Rehab Complete independence Bed to Chair : Rehab Complete independence Chair to Bed : Rehab Complete independence Stand to Sit : Rehab Complete independence Sit to Supine : Rehab Complete independence STELLA JONESBRYCE/Jaron - 12/01/2018 13:20 EDT Cognition Assessment, OT Orientation : Oriented x 4 STELLA JONESBRYCE/Jaron - 12/01/2018 13:20 EDT Indication Assessment, OT Occupational Therapy Indicated : No Occupational Therapy Not Indicated : Independent STELLA JONESBRYCE/Jaron - 12/01/2018 13:20 EDT Plan of Care, OT OT Tx Plan/Goals Established w Patient : No STELLA JONESBRYCE/Jaron - 12/01/2018 13:20 EDT Treatment Note Subjective Comment : agreeable Patient's Response to Treatment : pt tolerated fairly Additional Objective Information : pt to EOB mod I. pt Sat unsupported. LB dressing independent. Stood from EOB independent. Transfered independent no LOB. Pt back to sitting. Transfered to bathroom independent. Back to sitting. B UE WFL. Assessment : pt has no OT concers. Multiple demonstrations of safety. BP at end of session 179/82 Plan for Treatment : defer OT BARON JONESBRYCE TIRADO/Jaron - 12/01/2018 13:20 EDT Pain Assessment Pain Scaled Used : 0-10 Pain scale Pain Score During-Intervention : 0 JONESBARONSTELLABRYCE TIRADO/Jaron 12/01/2018 13:20 EDT Image 1 - Images currently included in the form version of this document have not been included in the text rendition version of the form. Anticipated Discharge Needs, OT/PT Anticipated Discharge to : Home, with family care STELLA JONES OTR/Jaron 12/01/2018 13:[address] [facility] OT Charges OT Selfcare/Hm Mgmt Ea 15 Min : 1 OT Eval Low Complexity : 1 KAREN STELLABRYCE TIRADO/Jaron - 12/01/2018 13:20 EDT Electronically signed by Victor Manuel Alcala Conversion Convertible Power Shovel Operator Alpesh at 09/13/2022 4:36 PM CDT documented in this encounter Plan of Treatment Not on file documented as of this encounter Visit Diagnoses Not on filedocumented in this encounter
--- OUTSIDE RECORDS SUMMARY | 2024-11-24 18:05 | XMS_ITS | Encounter Summary ---
Author Organization [employer] ([place], [place], [place], [place]) Address [address] [place] [address] Care Team Providers Care Recycling Or Rubbish Collector Name Role Phone Unavailable Primary Care Provider Unavailabl e Encounter Details Date Type Department Care Team (Late st Contact Info) Description 01/07/2019 Transcribed Document [facility] [place] [facility] [place] [address] ProviderBrianne MD [address] [place] [phone] Social History Tobacco Use Types Packs/Day Years Used Date Smoking Tobacco: Never Assessed Sex and Gender Information Value Date Recorded Sex Assigned at Male 11/21/2021 1:59 PM CDT Legal Sex Male 1:59 PM CDT Gender Identity Male 11/21/2021 1:59 PM CDT Sexual Orientation Not on file documented as of this encounter Miscellaneous Notes * Cerner Conversion Note - Brianne ProviderMD - 01/07/2019 9:57 AM CDT Evaluation, Physical Therapy Entered On: 01/07/2019 14:52 EDT Performed On: 01/07/2019 14:43 EDT by DAY RAJAN, PT General Information, PT Visit Type, PT : Initial evaluation Patient Orders : Order Date Order Ordering 01/07/2019 09:57 PT Evaluation and Treatment Ordered By: JULIO RUSHING MD-ORT 01/07/2019 09:57 PT Treatment Instructions Ordered By: JULIO RUSHING MD-ORT 01/07/2019 09:57 PT Treatment Instructions Ordered By: JULIO RUSHING MD-ORT 01/07/2019 09:57 PT Treatment Instructions Ordered By: JULIO RUSHING MD-ORT 01/07/2019 09:57 PT Treatment Instructions Ordered By: JULIO RUSHING MD-ORT 01/07/2019 09:57 PT Treatment Instructions Ordered By: JULIO RUSHING MD-OREil Active Diagnoses : No Qualifying Diagnoses Therapy Diagnosis, PT : Aftercare following R anterior GARFIELD Onset of Problem, PT : 01/07/2019 EDT Admission Date : 01/07/2019 07:08 Assisted by, PT : Occupational Therapist Personal Devices : Personal Devices No Devices Recorded Assistive Devices : Assistive Devices No Devices Recorded DAY RAJAN, PT - 01/07/2019 14:43 EDT General Status Patient Received Status : Up in chair Treatment Start Time : 01/07/2019 14:12 EDT Patient Left Status : Up in chair, RN/PCT informed, Family/Visitors at bedside, Communication board completed, All needs met and within reach, Other: SCD's, ICE RN/PCT Informed Comment : RN Olga Lidia and pt consent Treatment End Time : 01/07/2019 14:34 EDT Treatment Time : 22 Minute(s) DAY RAJAN PT - 01/07/2019 14:43 EDT History and Environment Living Situation, Therapy : Home Patient Lives With : Alone Persons Assisting Patient at Home : Alone Professional Skilled Services : None Persons Providing Information : Patient Home Equipment Therapy, PT : None Home Setup : One story Stairs : No DAY RAJAN PT - 01/07/2019 14:43 EDT Prior Level of Function PT GRID Prior LOF Ambulation, Household : Independent Prior LOF Ambulation, Community : Independent Prior LOF Bed Mobility : Independent Prior LOF Toileting : Independent Prior LOF Transfer : Independent DAY RAJAN PT - 01/07/2019 14:43 EDT Upper Extremity Right UE Active ROM : WFL Right UE Strength : WFL Left UE Active ROM : WFL Left UE Strength : WFL DAY RAJAN PT - 01/07/2019 14:43 EDT Lower Extremity RLE Active ROM : WFL Right LE Strength : Impaired LLE Active ROM : WFL Left LE Strength : WFL DAY RAJAN PT - 01/07/2019 14:43 EDT Functional Mobility Mobility Grid Sit to Stand : Supervision/set-up Stand to Sit : Supervision/set-up DAY RAJAN PT - 01/07/2019 14:43 EDT Sit to Stand Device : Belt, gait, Walker, front wheel DAY RAJAN, PT - 01/07/2019 14:43 EDT Gait Training/Assessment, PT Weight Bearing Status : As tolerated Gait Assistance Level : Supervision Walking Distance : 70ft with RWx, no LOB, cues for safety awareness and safe use of assistive device Ambulatory Devices : Gait belt, Walker, front wheel Gait Deviations : Yes DAY RAJAN, PT - 01/07/2019 14:43 EDT Activity Tolerance, PT Activity Comment : Excellent initial tolerance with no LOb and no acute complaints DAY RAJAN, PT - 01/07/2019 14:43 EDT Cognition Assessment, PT Orientation : Oriented x 4 DAY RAJAN PT - 01/07/2019 14:43 EDT Edu Topics Physical Therapy Education Grid Gait Training : Returns demonstration Role of Physical Therapy : Verbalizes understanding Safety : Verbalizes understanding, Needs reinforcement Transfer Training : Returns demonstration Use of Assistive Device : Returns demonstration DAY RAJAN, PT - 01/07/2019 14:43 EDT Indication Assesessment, PT Physical Therapy Indicated : Yes PT Problem List : Impaired, bed mobility, Impaired, endurance tolerance, Impaired, gait, Impaired, joint mobility, Impaired, standing balance, Impaired, strength, Impaired, transfers Potential Barriers To Therapy : None evident Rehabilitation Potential : Good DAY RAJAN PT - 01/07/2019 14:43 EDT Plan of Care, PT PT Tx Plan/Goals Established w Patient : Yes PT Frequency Rehab : Daily, twice (bid) PT Duration Rehab : Fourteen days PT Treatments Planned : Gait training, Safety education, Stair training, Therapeutic exercises DAY RAJAN, PT - 01/07/2019 14:43 EDT Recovery Engineer Goals Mobility/Bed Mobility LTG PT Grid Goal #1 Goal #2 Activity : Sit to stand Supine to sit Assist : Supervision or set-up Independent, modified Equipment : Walker, front wheel Date to Meet : 01/21/2019 EDT 01/21/2019 EDT Goal Status : Intial Goal Intial Goal DAY RAJAN, PT - 01/07/2019 14:43 EDT DAY RAJAN, PT - 01/07/2019 14:43 EDT Ambulation LTG Grid Goal #1 Device : Walker, front wheel Distance : 150ft Assist : Supervision or set-up Date to Meet : 01/21/2019 EDT Goal Status : Intial Goal DAY RAJAN, PT - 01/07/2019 14:43 EDT Treatment Note Subjective Comment : Pt agreeable to PT eval, denies acute complaints at rest. Patient's Response to Treatment : Excellent tolerance to gait and transfer tasks with no acute complaints. Reinforced need to use RWx and call for assistance in hosptial for any mobility tasks, family present to also receive safety instructions. Additional Objective Information : SBA sit-stand with RWx SBA gait x 70ft with RWx Pt left up in chair with call light and all needs within reach Assessment : Pt tolerates initial mobility well with no acute complaints. Pt will continue to benefit from physical therapy in the acute care setting to maximize strength and ROM in the surgical extremity, and for functional training and safety education to minimize functional deficits at discharge and promote return to functional independence. Reinforce safety education and need to gradually increase activities during rehab course. Plan for Treatment : Continue BID DAY RAJAN PT - 01/07/2019 14:43 EDT Pain Assessment Pain Scaled Used : 0-10 Pain scale Pain Score Pre-Intervention : 0 Pain Score Post-Intervention. : 0 DAY RAJAN PT - 01/07/2019 14:43 EDT Image 1 - Images currently included in the form version of this document have not been included in the text rendition version of the form. Anticipated Discharge Needs, OT/PT Anticipated Discharge to : Home, with home health Anticipated Home Equipment : Cane Walker Recommend Continued Therapy at Discharge : Yes DAY RAJAN PT - 01/07/2019 14:43 EDT [facility] PT Charges Gait Training Each 15 Min : 1 PT Nedra Low Complexity : 1 DAY RAJAN PT - 01/07/2019 14:43 EDT Electronically signed by Victor Manuel Alcala Conversion Radio Equipment Installer Cerner at 09/14/2022 12:15 PM CDT documented in this encounter Plan of Treatment Not on file documented as of this encounter Visit Diagnoses Not on filedocumented in this encounter
--- OUTSIDE RECORDS SUMMARY | 2024-11-24 18:05 | XMS_ITS | Encounter Summary ---
Author Organization [employer] ([place], [place], [place], [place]) Address [address] [place] [address] Care Team Providers Care Handbag Frames Inspector Name Role Phone Unavailable Primary Care Provider Unavailabl e Encounter Details Date Type Department Care Team (Late st Contact Info) Description 12/01/2018 Transcribed Document [facility] [place] [address] [place] [address] ProviderBrianne MD [address], [place] [phone] Social History Tobacco Use Types Packs/Day Years Used Date Smoking Tobacco: Never Assessed Sex and Gender Information Value Date Recorded Sex Assigned at Male 11/21/2021 1:59 PM CDT Legal Sex Male 1:59 PM CDT Gender Identity Male 11/21/2021 1:59 PM CDT Sexual Orientation Not on file documented as of this encounter Miscellaneous Notes * Cerner Conversion Note - Historical ProviderMD - 12/01/2018 2:17 PM CDT Spiritual Care Assessment Entered On: 12/01/2018 15:01 EDT Performed On: 12/01/2018 15:00 EDT by KALYAN POLANCO General Information Referred by : Physician Referral Reason Comment : Code Stroke assessment Ministry Provided to : Patient, Family/Significant other Ministry Comment/Summary Points : Mr. Briggs declined assessment KALYAN POLANCO - 12/01/2018 15:00 EDT documented in this encounter Plan of Treatment Not on file documented as of this encounter Visit Diagnoses Not on filedocumented in this encounter
--- OUTSIDE RECORDS SUMMARY | 2024-11-24 18:05 | XMS_ITS | Encounter Summary ---
Author Organization [employer] ([place], [place], [place], [place]) Address [address] [place] [address] Care Team Providers Care Aging Box Hand Name Role Phone Unavailable Primary Care Provider Unavailabl e Encounter Details Date Type Department Care Team (Late st Contact Info) Description 11/30/2018 Transcribed Document [facility] [place] Family [facility] [place] [address] ProviderBrianne MD [address], [place] [phone] Social History Tobacco Use Types Packs/Day Years Used Date Smoking Tobacco: Never Assessed Sex and Gender Information Value Date Recorded Sex Assigned at Male 11/21/2021 1:59 PM CDT Legal Sex Male 1:59 PM CDT Gender Identity Male 11/21/2021 1:59 PM CDT Sexual Orientation Not on file documented as of this encounter Miscellaneous Notes * Cerner Conversion Note - Brianne ProviderMD - 11/30/2018 8:28 AM CDT Stroke/Warfarin Instructions Entered On: 11/30/2018 8:29 EDT Performed On: 11/30/2018 8:28 EDT by Carina Barriga Rn Stroke/Warfarin Instructions Stroke/TIA Discharge Ins : N/A Warfarin Discharge Ins : N/A Carina Barriga Rn - 11/30/2018 8:28 EDT documented in this encounter Plan of Treatment Not on file documented as of this encounter Visit Diagnoses Not on filedocumented in this encounter
--- OUTSIDE RECORDS SUMMARY | 2024-11-24 18:05 | XMS_ITS | Encounter Summary ---
Author Organization [employer] ([place], [place], [place], [place]) Address [address] [place] [address] Care Team Providers Care Whiting Can Worker Name Role Phone Unavailable Primary Care Provider Unavailabl e Encounter Details Date Type Department Care Team (Late st Contact Info) Description 01/07/2019 Transcribed Document [facility] Family Medicine [facility] [place] [address] ProviderBrianne MD [address] [place] [phone] Social History Tobacco Use Types Packs/Day Years [...] ProviderMD - 01/07/2019 9:57 AM CDT Evaluation, Occupational Therapy Entered On: 01/07/2019 15:45 EDT Performed On: 01/07/2019 14:28 EDT by STELLA JONES OTR/L General Information, OT Visit Type, OT : Initial evaluation Patient Orders : Order Date Order Ordering 01/07/2019 09:57 OT Evaluation and Treatment Ordered By: JULIO RUSHING MD-ORT 01/07/2019 09:57 OT Treatment Instructions Ordered By: JULIO RUSHING MD-OREli Active Diagnoses : No Qualifying Diagnoses Therapy Diagnosis, OT : Decreased independence secondary to weakness and hip pain Onset of Problem, OT : 01/07/2019 EDT Admission Date : 01/07/2019 07:08 Co-treated by, OT : Physical Therapist Personal Devices : Personal Devices No Devices Recorded Assistive Devices : Assistive Devices No Devices Recorded General Information Comment, OT : R DA GARFIELD WBAT No precautions hx of TIA with decreased safety awareness STELLA JONES OTR/Jaron 01/07/2019 15:29 EDT General Status Patient Received Status : Other: on couch Treatment Start Time : 01/07/2019 14:14 EDT Patient Left Status : RN/PCT informed, Family/Visitors at bedside, All needs met and within reach, Other: on couch RN/PCT Informed Comment : DAV roque Treatment End Time : 01/07/2019 14:28 EDT Treatment Time : 14 Minute(s) STELLA JONES OTR/Jaron 01/07/2019 15:29 EDT History and Environment, OT Living Situation, Therapy : Home Patient Lives With : Alone Persons Assisting Patient at Home : Alone Professional Skilled Services : None Persons Providing Information : Patient Home Setup : One story Stairs : No STELLA JONES OTR/Jaron 01/07/2019 15:29 EDT Prior LOF Bathing, OT : Independent Prior LOF Bed Mobility : Independent Prior LOF Upper Body Dressing, OT : Independent Prior LOF Lower Body Dressing, OT : Independent Prior LOF Toileting : Independent Prior LOF Transfer : Independent Prior LOF Grooming, OT : Independent Prior LOF for IADLs, OT : Independent STELLA JONES OTR/Jaron 01/07/2019 15:29 EDT Upper Extremity Right UE Active ROM : WFL Right UE Strength : WFL Left UE Active ROM : WFL Left UE Strength : WFL STELLA JONES OTR/Jaron 01/07/2019 15:29 EDT Self Care/Home Management, OT Self Feeding Assist Level, OT : Independent, complete Grooming Assist Level, OT : Supervision or set-up Bathing Assist Level, OT : Supervision or set-up Upper Body Dressing Assist Level, OT : Independent, complete Lower Body Dressing Assist Level, OT : Assist, minimal Toileting Assist Level : Assist, minimal Toilet Transfer Assist Level : Assist, minimal Toilet Transfer Device : Belt, gait, Walker, rolling STELLA JONES OTR/Jaron 01/07/2019 15:29 EDT Functional Mobility Mobility Grid Sit to Stand : Rehab Minimal assistance Stand to Sit : Rehab Minimal assistance KHLOE JONESNINI Coleman - 01/07/2019 15:29 EDT Cognition Assessment, OT Orientation : Oriented x 4 STELLA JONESNINI - 01/07/2019 15:29 EDT Plan of Care, OT OT Tx Plan/Goals Established w Patient : Yes STELLA JONES NINI - 01/07/2019 15:29 EDT Gum Dipper Goals, OT Dressing, Lower Body LTG Grid Goal #1 Activity : Dressing, Lower Body Assist : Supervision or set up Equipment : Long Handled Social Worker School, Sock aid, Long handled shoehorn Date to Meet : 01/21/2019 EDT Goal Status : Initial goal STELLA JONES OTR/L - 01/07/2019 15:29 EDT Toilet Transfer LTG Grid Goal #1 Activity : Toilet Transfer, Ambulatory Assist : Supervision or set up Equipment : Raised Toilet Seat, With Handles, Rolling walker Date to Meet : 01/21/2019 EDT Goal Status : Initial goal STELLA JONES OTR/L - 01/07/2019 15:29 EDT Bed Mobility/ Bed Transfer LTG Grid Goal #1 Activity : Bed Mobility/Bed Transfer Assist : Independent, modified Date to Meet : 01/21/2019 EDT Goal Status : Initial goal KAREN NIIN DOUGLAS - 01/07/2019 15:29 EDT Treatment Note Subjective Comment : agreeable Patient's Response to Treatment : pt tolerated fairly Additional Objective Information : pt sitting on couch in room. Family present. Stood from chair min assist. Transfered min assist with RWx. Pt had minimal pain. NO LOB. Pt back in chair. Has AE needs educations. Assessment : pt has decreased safety awareness at times. Plan for Treatment : see poc STELLA JONES OTR/L - 01/07/2019 15:29 EDT Pain Assessment Pain Scaled Used : 0-10 Pain scale Pain Score During-Intervention : 0 STELLA JONES OTR/L - 01/07/2019 15:29 EDT Image 1 - Images currently included in the form version of this document have not been included in the text rendition version of the form. Anticipated Discharge Needs, OT/PT Anticipated Discharge to : Home, with home health STELLA JONES OTR/Jaron - 01/07/2019 15:[address] [facility] OT Charges OT Eval Moderate Complexity : 1 STELLA JONES OTR/Jaron - 01/07/2019 15:29 EDT documented in this encounter Plan of Treatment Not on file documented as of this encounter Visit Diagnoses Not on filedocumented in this encounter
--- OUTSIDE RECORDS SUMMARY | 2024-11-24 18:05 | XMS_ITS | Encounter Summary ---
Author Organization [employer] ([place], [place], [place], [place]) Address [address] [place] [address] Care Team Providers Care Quarter Section Ironer Name Role Phone Unavailable Primary Care Provider Unavailabl e Encounter Details Date Type Department Care Team (Late st Contact Info) Description 01/08/2019 Transcribed Document [facility] [place] [facility] [place] [address] ProviderBrianne MD [address], [place] [phone] Social History Tobacco Use Types Packs/Day Years [...] Kim MD - 01/08/2019 2:32 PM CDT Final Discharge Planning Entered On: 01/08/2019 14:32 EDT Performed On: 01/08/2019 14:32 EDT by KATARINA BREWER RN-Specification Consultant Final Discharge Planning Discharge Arrangements : Patient Post-Acute Information Patient Name: NADER TOLENTINO Gender: Male : 44 Age: 78 Years No Post-Acute Placement(s) Listed No Post-Acute Service(s) Listed No [place] Referral(s) Listed Transportation Needs : Car Follow Up Appointment Scheduled : Yes Is Patient High/Moderate Readmission Risk? : No Patient/Family Notified of Plan : Yes Support Person/Pt Rep Notified of Plan : Yes Is Patient Ready for Discharge? : Yes Physician Notified Patient is Ready for Discharge? : Yes Discharge To Care Management : Home Health Services (Related/SOC within 3 days)-06 KATARINA BREWER RN-Specification Consultant - 01/08/2019 14:32 EDT Electronically signed by Cari [facility] Conversion Sewer Head Cerner at 09/14/2022 12:16 PM CDT documented in this encounter Plan of Treatment Not on file documented as of this encounter Visit Diagnoses Not on filedocumented in this encounter
--- OUTSIDE RECORDS SUMMARY | 2024-11-24 18:05 | XMS_ITS | Encounter Summary ---
Author Organization [employer] ([place], [place], [place], [place]) Address [address] [place] [address] Care Team Providers Care Wet Process Operator Name Role Phone Unavailable Primary Care Provider Unavailabl e Encounter Details Date Type Department Care Team (Late st Contact Info) Description 01/07/2019 Transcribed Document [facility] [place] [facility] [place] [address] ProviderBrianne MD [address], [place] [id number] Social History Tobacco Use Types Packs/Day Years Used Date Smoking Tobacco: Never Assessed Sex and Gender Information Value Date Recorded Sex Assigned at Male 11/21/2021 1:59 PM CDT Legal Sex Male 1:59 PM CDT Gender Identity Male 11/21/2021 1:59 PM CDT Sexual Orientation Not on file documented as of this encounter Miscellaneous Notes * Cerner Conversion Note - Brianne ProviderMD - 01/07/2019 3:46 PM CDT Treatment Intervention, OT Entered On: 01/08/2019 15:29 EDT Performed On: 01/08/2019 9:48 EDT by STELLA JONES OTR/Jaron General Information, OT Visit Type, OT : Treatment Note STELLA JONES OTR/L - 01/08/2019 15:26 EDT Patient Orders : Order Date Order Ordering 01/07/2019 09:57 OT Evaluation and Treatment Ordered By: JULIO RUSHING MD-ORT 01/07/2019 09:57 OT Treatment Instructions Ordered By: JULIO RUSHING MD-ORT 01/07/2019 15:46 OT Additional Treatment Ordered By: Active Diagnoses : 01/08/2019 12:00 Presence of unspecified artificial hip joint Admission Date : 01/07/2019 07:08 STELLA JONES OTR/L - 01/08/2019 15:32 EDT Co-treated by, OT : Physical Therapist STELLA JONES OTR/L - 01/08/2019 15:26 EDT Personal Devices : Personal Devices No Devices Recorded Assistive Devices : Assistive Devices No Devices Recorded STELLA JONES OTR/L - 01/08/2019 15:32 EDT General Status Patient Received Status : Up in chair Treatment Start Time : 01/08/2019 9:24 EDT Patient Left Status : Up in chair, RN/PCT informed, All needs met and within reach RN/PCT Informed Comment : DAV roque Treatment End Time : 01/08/2019 9:48 EDT Treatment Time : 24 Minute(s) STELLA JONES OTR/L - 01/08/2019 15:26 EDT Functional Mobility Mobility Grid Bed Roll Left : Rehab Modified independence Bed Roll Right : Rehab Modified independence Bed Scooting : Rehab Modified independence Supine to Sit : Rehab Modified independence Sit to Stand : Supervision/set-up Bed to Chair : Supervision/set-up Chair to Bed : Supervision/set-up Stand to Sit : Supervision/set-up Sit to Supine : Supervision/set-up STELLA JONES OTR/L - 01/08/2019 15:26 EDT Plan of Care, OT OT Tx Plan/Goals Established w Patient : Yes STELLA JONES OTR/L - 01/08/2019 15:26 EDT Medical Case Worker Goals, OT Dressing, Lower Body LTG Grid Goal #1 Activity : Dressing, Lower Body Assist : Supervision or set up Equipment : Long Handled Jewelry Inspector, Sock aid, Long handled shoehorn Date to Meet : 01/21/2019 EDT Goal Status : Goal met Date Met : 01/08/2019 EDT STELLA JONES OTR/L - 01/08/2019 15:26 EDT Toilet Transfer LTG Grid Goal #1 Activity : Toilet Transfer, Ambulatory Assist : Supervision or set up Equipment : Raised Toilet Seat, With Handles, Rolling walker Date to Meet : 01/21/2019 EDT Goal Status : Goal met Date Met : 01/08/2019 EDT STELLA JONES OTR/L - 01/08/2019 15:26 EDT Bed Mobility/ Bed Transfer LTG Grid Goal #1 Activity : Bed Mobility/Bed Transfer Assist : Independent, modified Date to Meet : 01/21/2019 EDT Goal Status : Initial goal KAREN NINI DOUGLAS - 01/08/2019 15:26 EDT Treatment Note Subjective Comment : agreeable Patient's Response to Treatment : pt tolerated fairly Additional Objective Information : Up in chair. Educated on AE and demonstrated understanding. Transfered with cueing for safety. Using RWx safely. STELLA JONES OTR/L - 01/08/2019 15:26 EDT Assessment : pt would benefit from PT and OT HH to increase safety in home setting with ADLs Joint graduation coach present STELLA JONES OTR/L - 01/08/2019 15:32 EDT Plan for Treatment : seep oc STELLA JONES OTR/Jaron - 01/08/2019 15:26 EDT Pain Assessment Pain Scaled Used : 0-10 Pain scale Pain Score During-Intervention : 0 STELLA JONES OTR/L - 01/08/2019 15:26 EDT Image 1 - Images currently included in the form version of this document have not been included in the text rendition version of the form. Anticipated Discharge Needs, OT/PT Anticipated Discharge to : Home, with home health Recommend Continued Therapy at Discharge : Yes STELLA JONES OTR/L - 01/08/2019 15:[address] [facility] OT Charges OT Selfcare/Hm Mgmt Ea 15 Min : 2 STELLA JONES OTR/L - 01/08/2019 15:26 EDT Electronically signed by Victor Manuel Alcala Conversion Senior Asic Design Engineer Cerner at 09/14/2022 12:21 PM CDT documented in this encounter Plan of Treatment Not on file documented as of this encounter Visit Diagnoses Not on filedocumented in this encounter
--- OUTSIDE RECORDS SUMMARY | 2024-11-24 18:05 | XMS_ITS | Encounter Summary ---
Author Organization [employer] ([place], [place], [place], [place]) Address [address] [place] [address] Care Team Providers Care Hook And Eye Sewing Machine Operator Name Role Phone Unavailable Primary Care Provider Unavailabl e Encounter Details Date Type Department Care Team (Late st Contact Info) Description 11/28/2018 Transcribed Document [facility] Radiology [address] [place] [address] Ashvin Irby MD [address] [place] [address] Social History Tobacco Use Types Packs/Day Years Used Date Smoking Tobacco: Never Assessed Sex and Gender Information Value Date Recorded Sex Assigned at Male 11/21/2021 1:59 PM CDT Legal Sex Male 1:59 PM CDT Gender Identity Male 11/21/2021 1:59 PM CDT Sexual Orientation Not on file documented as of this encounter Miscellaneous Notes * Cerner Conversion Note - Ashvin Irby MD - 11/28/2018 3:32 PM EDT DATE OF PROCEDURE:11/28/2018 PREOPERATIVE DIAGNOSIS(ES): Symptomatic left carotid artery stenosis. POSTOPERATIVE DIAGNOSIS(ES): Symptomatic left carotid artery stenosis. PROCEDURE: Left carotid stent with distal embolic filter. SURGEON: Ashvin Irby M.D. INDICATIONS: Patient is a 78-year-old male who recently has been having difficulties walking. He has been assessed for a hip replacement. He also has a prior history of left neck cancer. He has had a radical neck dissection as well as radiation therapy. He was assessed by Dr. Toledo for possibility of symptomatic carotid disease. His duplex demonstrated 80% to 90% stenosis and a CT angiogram confirmed the findings. This was under-read by Radiology, but confirmed by both myself and Dr. Toledo to be about 80% to 90%. The patient's hip surgery has been delayed. He has been offered a carotid stent placement as he is high risk for open endarterectomy considering his overall health and prior history of neck radiation and dissection. Operative risks and benefits were explained and understood by the patient who agreed to proceed. OPERATIVE FINDINGS: 1. Xact 6 x 8 tapered by 30 mm carotid stent placed with a NAV6 distal embolic filter. 2. No neurologic changes throughout the procedure. OPERATIVE DESCRIPTION: Patient was taken back to the metallurgical lab technician and placed in supine position on the metallurgical lab technician table. Following time-out, he was sedated. His bilateral groins were widely prepped and draped in standard sterile fashion. Systemic heparinization was performed. Right femoral arteriotomy was accessed and a 6-Sri Lankan sheath was placed. Systemic heparinization was performed. An arch aortogram confirmed findings of a type B aortic arch. The left carotid was selected with a catheter. Selective carotid angiograms were performed and three different views obtained demonstrated about a 60% stenosis. This underestimated compared to the CT scan as patient's flow channel was on the anterior surface of the internal carotid artery on CT. Decision was made to proceed with carotid stenting. A 6-Sri Lankan sheath was advanced into the left common carotid artery. NAV6 distal embolic filter was advanced and deployed prior to the cavernous portion of the carotid. Our 6 x 8 tapered Xact stent was advanced and deployed. This did not have full effacement due to the level of severe stenosis. A 5 x 2 balloon was used to angioplasty the stent with full effacement and opening of the carotid stent. Patient remained neurologically intact throughout this procedure. Our filter was removed. Completion angiogram demonstrated normal findings with no residual stenosis. Cerebral angiogram was also performed and demonstrated normal filling of the middle and anterior cerebral artery after completion. Sheath was removed and a Perclose device was used successfully. Patient was taken back to Recovery in stable condition. No complications. Ashvin Irby M.D. Dict: 11/28/2018 14:32:03 Trans: 11/28/2018 15:14:13 CC1: Ashvin Irby M.D. documented in this encounter Plan of Treatment Not on file documented as of this encounter Visit Diagnoses Not on filedocumented in this encounter
--- OUTSIDE RECORDS SUMMARY | 2024-11-24 18:05 | XMS_ITS | Encounter Summary ---
Author Organization [employer] ([place], [place], [place], [place]) Address [address] [place] [address] Care Team Providers Care Electron Beam Welder Name Role Phone Unavailable Primary Care Provider Unavailabl e Encounter Details Date Type Department Care Team (Late st Contact Info) Description 12/01/[address] [facility] [place] Family Medicine [address] [place] [address] ProviderBrianne MD [address], [place] [phone] Social History Tobacco Use Types Packs/Day Years Used Date Smoking Tobacco: Never Assessed Sex and Gender Information Value Date Recorded Sex Assigned at Male 11/21/2021 1:59 PM CDT Legal Sex Male 1:59 PM CDT Gender Identity Male 11/21/2021 1:59 PM CDT Sexual Orientation Not on file documented as of this encounter Miscellaneous Notes * Cerner Conversion Note - Historical ProviderMD - 12/01/2018 4:37 AM CDT Consult Phone Call Documentation Entered On: 12/01/2018 8:35 EDT Performed On: 12/01/2018 4:37 EDT by Purnima Luis [facility] Coord Phone Call for Consults Consult Phone Call/Page Attempt : First call Consult, Additional Information : duplicate Purnima Luis [facility] Unit Coord - 12/01/2018 8:34 EDT Electronically signed by Victor Manuel Alcala Conversion Food And Nutrition Teacher Cerner at 09/13/2022 4:22 PM CDT documented in this encounter Plan of Treatment Not on file documented as of this encounter Visit Diagnoses Not on filedocumented in this encounter
--- OUTSIDE RECORDS SUMMARY | 2024-11-24 18:05 | XMS_ITS | Encounter Summary ---
Author Organization [employer] ([place], [place], [place], [place]) Address [address] [place] [address] Care Team Providers Care Dealer Relationship Manager Name Role Phone Unavailable Primary Care Provider Unavailabl e Encounter Details Date Type Department Care Team (Late st Contact Info) Description 11/30/2018 Transcribed Document [facility] [place] Family Medicine [facility] [place] [address] ProviderBrianne MD [address] [place] [id number] Social History Tobacco Use Types Packs/Day Years Used Date Smoking Tobacco: Never Assessed Sex and Gender Information Value Date Recorded Sex Assigned at Male 11/21/2021 1:59 PM CDT Legal Sex Male 1:59 PM CDT Gender Identity Male 11/21/2021 1:59 PM CDT Sexual Orientation Not on file documented as of this encounter Miscellaneous Notes * Cerner Conversion Note - Brianne Kim MD - 11/30/2018 11:44 PM CDT Patient: NADER TOLENTINO Age: 78 Years Sex: Male : 1940 Chief Complaint pt d/c from hospital at 13:00 today, per family pt disorieted, confused, not acting right, unsteady gait. Primary Care Provider LORRAINE, AIDEE History of Present Illness This is a 78 years old male patient past medical history of neck cancer, status post radiation, left carotid artery stenosis, status post stent on Tuesday 11/28, history of TIA, after discharge, family, noted he have issues with blood pressure, difficult to control, also denoted he is confused, and he is struggling to find staff, and difficult to find the exact wart, in addition, he had some numbness in his upper extremity. he denies any focal weakness, denies difficulty swallowing. In ER, initial evaluation, blood pressure was elevated, his CTA head and neck unremarkable.when I examined the patient, patient's at and oriented X3. Review of Systems GENERAL: Negative for fever and chills. HEAD: negative for headache, or dizziness. EYES: no change of vision. EARS: No earache. NOSE: No epistaxis. THROAT: No sore throat. RESPIRATORY: no shortness of breath.No cough or wheezing CARDIAC: No chest pain. No palpitation. GI: Negative for nausea, no vomiting, or diarrhea. URINARY: No hematuria.or dysuria MUSCULOSKELETAL: No generalized weakness. NEUROLOGICAL: numbness SKIN: No new rashes. Vital Signs T: 37.2 ??C HR: 68(Monitored) RR: 14 BP: 109/53 BP: 159/73(Sitting) BP: 156/68(Standing) BP: 208/80(Supine) SpO2: 97% HT: 180.34 cm WT: 67.45 kg BMI: 20.7 Oxygen Settings (Last) Oxygen Therapy Mode: Room air (11/30/18 23:00:00 EDT) Physical Exam HEAD: Atraumatic, normocephalic. EYES: No conjunctival injection or discharge. EARS: No discharge. NOSE: No bleeding or discharge. MOUTH: Dry. NECK: Supple.No JVD or lymphadenopathy. Full range of motion. CHEST: Clear to auscultation. No crackles, wheezes, or rhonchi. No respiratory muscle retraction. No chest wall tenderness. HEART: S1 and S2 heard. Regular rate and rhythm. ABDOMEN: Soft. no tenderness lower abdomen No guarding. No rebound tenderness. EXTREMITIES: No edema, erythema, or tenderness. Palpable peripheral pulses. NEUROLOGICAL: No apparent focal, motor, or sensory deficits. Patient is alert, awake, oriented x3. SKIN: No apparent rashes or induration. ENDOCRINE: No thyromegaly or tenderness. GENERAL:Patient is lying in bed, not in distress Assessment/Plan -Encephalopathy, with altered mental status CTA head and neck unremarkable Currently patient alert and oriented x3 unclear etiology Order orthostatic vitals Order ammonia, TSH Neurology consult -Left carotid artery stenosis, status post recent stent Continue with platelet Consult possible surgery -Hypertension, labile Hold oral BP agent for now Ordered orthostatic vitals -Stage III kidney disease, acute on chronic Monitor kidney function Avoid nephrotoxic toxic medications Gentle IV hydration -Diabetes mellitus Hold oral hypoglycemic agent Insulin signs scale Monitor blood sugar -Hypothyroidism Continue with levothyroxine Check TSH CODE STATUS patient is full code DVT prophylaxis heparin Discussed with ER staff Discussed with family at bedside Fluctuating blood pressure VTE Prophylaxis - Medical No VTE Prophylaxis [...] CATH///URINARY Historical No qualifying data Procedure/Surgical History colonoscopy (06/2016), EGD (2016), EGD (2012), colonoscopy///EGD (2010), varicose veins right leg (04/2010), varicose vein left leg (2009), artifical urinary sphincter (2007), tumorv exc. left side of neck//cancer (1997), cataract removal, GALLBLADDER, kidney stone removal, kidney stones, left knee/torn meniscus, left shoulder///torn rotator, prostatectomy. Home Medications (14) Active aspirin 81 mg, Oral, Daily carvedilol 12.5 mg oral tablet 12.5 mg = 1 Tab, Oral, BID clonidine 0.1 mg oral tablet , Oral, BID clopidogrel 75 mg, Oral, At Bedtime elppa CoQ10 50 mg oral capsule 100 mg = 2 Cap, Oral, Daily glimepiride 4 mg, Oral, Daily levothyroxine 88 mcg, Oral, Daily lisinopril 20 mg, Oral, Daily Nature's Bounty Red Krill Oil 350 mg, Oral, Daily omeprazole 40 mg, Oral, At Bedtime simvastatin 40 mg, Oral, At Bedtime Vitamin B Complex oral capsule 1 Cap, Oral, Daily Vitamin B12 1,000 mcg, Oral, Daily Vitamin D3 2,000 Int Units, Oral, Daily Allergies NSAIDs (Kidney disease) Social History Alcohol Alcohol Use History No. Home/Environment Lives with Alone. Home equipment: Glucose monitoring. Substance Abuse Drug Use Hx: No. Use in Last 12 Months: No. Tobacco Never (less than 100 in lifetime) Smoking Status. Never Smokeless Tobacco Status. Family History Hypertension Diagnostic Results Radiology Results (Last 48 hours) [id number] -- 11/30/2018 19:19 CTA Head (11/30/2018 18:22) Result: CT NECK [...] majorbranches are also within normal limits.IMPRESSION: Unremarkable. Lab Results Test Name Test Result Date/Time Sodium Level 141 mmol/L 11/30/2018 17:00 EDT Potassium Level 4.5 mmol/L 11/30/2018 17:00 EDT Chloride Level 111 mmol/L 11/30/2018 17:00 EDT Carbon Dioxide Level 25 mmol/L 11/30/2018 17:00 EDT Anion Gap 10 11/30/2018 17:00 EDT Glucose Level 75 mg/dL 11/30/2018 17:00 EDT Blood Urea Nitrogen 32 mg/dL (High) 11/30/2018 17:00 EDT Creatinine Level 1.70 mg/dL (High) 11/30/2018 17:00 EDT eGFR 48 mL/min/1.73m2 (Low) 11/30/2018 17:00 EDT eGFR NonAfrican 39 mL/min/1.73m2 (Low) 11/30/2018 17:00 EDT Bun/Creatinine 18.8 11/30/2018 17:00 EDT Calcium Level 9.3 mg/dL 11/30/2018 17:00 EDT Protein Total 6.8 Gram/dL 11/30/2018 17:00 EDT Albumin Level 3.8 Gram/dL 11/30/2018 17:00 EDT Globulin 3.0 Gram/dL 11/30/2018 17:00 EDT A/G Ratio 1.3 11/30/2018 17:00 EDT Bilirubin Total 0.5 mg/dL 11/30/2018 17:00 EDT Alk Phos 73 Units/Liter 11/30/2018 17:00 EDT AST 15 Units/Liter 11/30/2018 17:00 EDT ALT 19 Units/Liter 11/30/2018 17:00 EDT Ammonia Level 11.0 uMol/L 11/30/2018 17:00 EDT Device Comment 1 Notified Nurse RBV 11/30/2018 19:48 EDT Device Comment 1 No action Require 11/30/2018 16:53 EDT Glucose POC2 68 mg/dL (Low) 11/30/2018 19:48 EDT Glucose POC2 73 mg/dL 11/30/2018 16:53 EDT Lactic Acid Level 0.5 mmol/L 11/30/2018 17:00 EDT Troponin I Ultra <0.015 ng/mL 11/30/2018 17:00 EDT WBC 8.9 K/uL 11/30/2018 17:00 EDT RBC 3.84 Million/uL (Low) 11/30/2018 17:00 EDT Hgb 11.8 g/dL (Low) 11/30/2018 17:00 EDT Hct 35.3 % (Low) 11/30/2018 17:00 EDT MCV 91.9 fL 11/30/2018 17:00 EDT MCH 30.7 pg 11/30/2018 17:00 EDT MCHC 33.4 Gram/dL 11/30/2018 17:00 EDT Platelet Count 162 K/uL (Low) 11/30/2018 17:00 EDT MPV 10.1 fL 11/30/2018 17:00 EDT RDW 13.2 % 11/30/2018 17:00 EDT Neut % 68.4 % 11/30/2018 17:00 EDT Neut # 6.08 K/uL 11/30/2018 17:00 EDT Lymph % 16.3 % (Low) 11/30/2018 17:00 EDT Lymph # 1.45 x10(3)/uL 11/30/2018 17:00 EDT [place] % 13.0 % (High) 11/30/2018 17:00 EDT [place] # 1.15 K/uL (High) 11/30/2018 17:00 EDT Eos % 1.5 % 11/30/2018 17:00 EDT Eos # 0.13 x10(3)/uL 11/30/2018 17:00 EDT Baso % 0.2 % 11/30/2018 17:00 EDT Baso # 0.02 x10(3)/uL 11/30/2018 17:00 EDT Slide Review No 11/30/2018 17:00 EDT IG# 0.05 x10(3)/uL 11/30/2018 17:00 EDT IG% 0.60 % 11/30/2018 17:00 EDT PT 11.0 Second(s) 11/30/2018 17:00 EDT INR 1.0 11/30/2018 17:00 EDT Urine Type U CleanCatch 11/30/2018 18:20 EDT Urine Color YELLOW2 11/30/2018 18:20 EDT Urine Appearance CLEAR2 11/30/2018 18:20 EDT Urine Specific [place] 1.009 11/30/2018 18:20 EDT Urine pH Dipstick 5.5 (Low) 11/30/2018 18:20 EDT Urine Leukocyte Esterase NEGATIVE2 11/30/2018 18:20 EDT Urine Nitrite NEGATIVE2 11/30/2018 18:20 EDT Urine Protein Dipstick TRACE2 (Abnormal) 11/30/2018 18:20 EDT Urine Glucose Dipstick NEGATIVE2 11/30/2018 18:20 EDT Urine Ketones Dipstick NEGATIVE2 11/30/2018 18:20 EDT Urine Urobilinogen Dipstick 0.2 11/30/2018 18:20 EDT Urine Bilirubin Dipstick NEGATIVE2 11/30/2018 18:20 EDT Urine Blood Dipstick NEGATIVE2 11/30/2018 18:20 EDT Ur RBC 0-2 (Abnormal) 11/30/2018 18:20 EDT Ur WBC 0-2 11/30/2018 18:20 EDT Ur Mucous Trace (Abnormal) 11/30/2018 18:20 EDT Ur Renal Epithelial Cells 0-2 (Abnormal) 11/30/2018 18:20 EDT Ur Hyaline Casts 10-20 (Abnormal) 11/30/2018 18:20 EDT Ur Granular Casts 0-2 (Abnormal) 11/30/2018 18:20 EDT TSH 0.770 mcInt Units/mL 11/30/2018 19:28 EDT Additional Documentation Code Status Start: 11/30/18 19:18:00 EDT, Full Code, Continuous Order documented in this encounter Plan of Treatment Not on file documented as of this encounter Visit Diagnoses Not on filedocumented in this encounter
--- OUTSIDE RECORDS SUMMARY | 2024-11-24 18:05 | XMS_ITS | Encounter Summary ---
Author Organization [employer] ([place], [place], [place], [place]) Address [address] [place] [address] Care Team Providers Care Telecommunications Operator Name Role Phone Unavailable Primary Care Provider Unavailabl e Encounter Details Date Type Department Care Team (Late st Contact Info) Description 01/08/2019 Transcribed Document [facility] [place] [facility] [place] [address] ProviderBrianne MD [facility] [place], [place] [phone] Social History Tobacco Use Types Packs/Day Years Used Date Smoking Tobacco: Never Assessed Sex and Gender Information Value Date Recorded Sex Assigned at Male 11/21/2021 1:59 PM CDT Legal Sex Male 1:59 PM CDT Gender Identity Male 11/21/2021 1:59 PM CDT Sexual Orientation Not on file documented as of this encounter Miscellaneous Notes * Cerner Conversion Note - Brianne Kim MD - 01/08/2019 12:39 PM CDT Discharge Summary, PT Entered On: 01/08/2019 12:39 EDT Performed On: 01/08/2019 12:39 EDT by DAY RAJAN PT Discharge Summary Discharge Summary Provider Notified : Nursing, Referring provider Reason for Discharge : Discharged from hospital, All goals met Discharge Summary Comment, PT : Pt has met 3/3 goals for physical therapy and is appropriate for discharge from acute care therapy services. Pt performs all bed mobility and transfers with SBA-modified independent, and is ambulatory x 150ft with RWx and SBA. Pt has successfully participated in post-op HEP for anterior GARFIELD and was issued written exercises instructions for continued strengthening at discharge. Pt was again educated about emphasizing safety and consistent use of assistive device at home to minimze fall risk. DAY RAJAN, PT - 01/08/2019 12:39 EDT Electronically signed by Cari, [facility] Conversion Shelving Supervisor Cerner at 09/14/2022 12:18 PM CDT documented in this encounter Plan of Treatment Not on file documented as of this encounter Visit Diagnoses Not on filedocumented in this encounter
--- OUTSIDE RECORDS SUMMARY | 2024-11-24 18:05 | XMS_ITS | Encounter Summary ---
Author Organization [employer] ([place], [place], [place], [place]) Address [address] [place] [address] Care Team Providers Care Printing Press Machine Operator Name Role Phone Unavailable Primary Care Provider Unavailabl e Encounter Details Date Type Department Care Team (Late st Contact Info) Description 01/07/2019 Transcribed Document [facility] [place] Family Medicine [facility] [place] [address] ProviderBrianne MD [address], [place] [phone] Social History Tobacco Use Types Packs/Day Years Used Date Smoking Tobacco: Never Assessed Sex and Gender Information Value Date Recorded Sex Assigned at Male 11/21/2021 1:59 PM CDT Legal Sex Male 1:59 PM CDT Gender Identity Male 11/21/2021 1:59 PM CDT Sexual Orientation Not on file documented as of this encounter Miscellaneous Notes * [employer]ner Conversion Note - Brianne Kim MD - 01/07/2019 7:55 AM CDT [facility] Main OR Preop Summary Primary Physician: JULIO RUSHING MD-ORT Finalized Date/Time: 01/07/19 10:09:51 Pt. Name: NADER TOLENTINO /Sex: 1940 Male Med Rec #: [id number] Physician: JULIO RUSHING MD-ORT Financial #: [id number] Pt. Type: I Room/Bed: ASA/1 Admit/Disch: 01/07/19 07:08:00 - Institution: [facility] PreOp Case Times Entry 1 In Preop 01/07/19 05:35:00 Ready for Holding n/a Room Patient Ready for 01/07/19 06:39:00 Surgery Patient Out of Preop 01/07/19 07:16:00 Patient Out of n/a Holding Room Last Modified By: Whit Lamb RN 01/07/19 10:09:50 [facility] PreOp Case Times Audit 01/07/19 10:09:50 Sample Wrapper: RUSTY Modifier: REISNERK <+> 1 Patient Out of Preop 01/07/19 06:39:14 Sample Wrapper: RUSTY Modifier: REISNERK <+> 1 Patient Ready for Surgery Finalized By: Whit Lamb, RN Document Signatures Signed By: Whit Lamb RN 01/07/19 10:09 Electronically signed by Cari [facility] Conversion Improvement Rn Cerner at 09/14/2022 12:16 PM CDT documented in this encounter Plan of Treatment Not on file documented as of this encounter Visit Diagnoses Not on filedocumented in this encounter
--- OUTSIDE RECORDS SUMMARY | 2024-11-24 18:05 | XMS_ITS | Encounter Summary ---
Author Organization [employer] ([place], [place], [place], [place]) Address [address] [place] [address] Care Team Providers Care Carpentry Instructor Name Role Phone Unavailable Primary Care Provider Unavailabl e Encounter Details Date Type Department Care Team (Late st Contact Info) Description 12/01/2018 Transcribed Document [facility] Radiology [address] [place] [address] Max Feliz MD [address] [place], [place] [id number] Social History Tobacco Use Types Packs/Day Years Used Date Smoking Tobacco: Never Assessed Sex and Gender Information Value Date Recorded Sex Assigned at Male 11/21/2021 1:59 PM CDT Legal Sex Male 1:59 PM CDT Gender Identity Male 11/21/2021 1:59 PM CDT Sexual Orientation Not on file documented as of this encounter Miscellaneous Notes * Cerner Conversion Note - Max Feliz MD - 12/01/2018 9:18 AM EDT Patient: NADER TOLENTINO Age: 78 years Sex: Male : 1940 Associated Diagnoses: None Author: MAX FELIZ MD Subjective Chief complaint 11/30/2018 19:43 EDT pt d/c from hospital at 13:00 today, per family pt disorieted, confused, not acting right, unsteady gait. 11/30/2018 16:16 EDT pt d/c from hospital at 13:00 today, per family pt disorieted, confused, not acting right, unsteady gait. . december 01. no fever or chills. no chest pain or palpitaions. daughter at bedside states dc yesterday by vascular surtgery, she had new bp cuff and sbp 90 and he was acting unusual, Review of Systems Constitutional: No fever, No chills. Respiratory: No shortness of breath, No cough. Gastrointestinal: No nausea, No vomiting. Genitourinary: No dysuria. Neurologic: Alert and oriented X4, No confusion. Psychiatric: No anxiety, No depression. Health Status Allergies: Allergic Reactions (Selected) Severity Not Documented NSAIDs- Kidney disease., Allergies (1) Active Reaction NSAIDs Kidney disease Problem list: Medical Arthritis / SNOMED CT 4343192 / Confirmed At risk for sleep apnea / IMO 39121475 / Confirmed Barretts esophagus / SNOMED CT 020632628 / Confirmed Carotid artery disease / SNOMED CT 3502199834 / Confirmed Cataract//extraction / SNOMED CT 742460697 / Confirmed Urinary catheter complication////DO NOT CATH///URINARY / SNOMED CT 5052766044 / Confirmed ARTIFICAL SPHINCTER Diabetes mellitus type II / SNOMED CT 31298696 / Confirmed Disorder of prostate//cancer / SNOMED CT 47949518 / Confirmed Urinary //artifical urinary sphincter / SNOMED CT 667646854 / Confirmed GERD - Gastro-esophageal reflux disease / SNOMED CT 1391749070 / Confirmed Hard of hearing / SNOMED CT 861621753 / Confirmed Right hip pain / SNOMED CT 23018939 / Confirmed Hyperlipidemia / SNOMED CT 65074599 / Confirmed Hypertension / SNOMED CT 33125105 / Confirmed Kidney disease///stage 3 / SNOMED CT 611131587 / Confirmed Right knee pain / SNOMED CT 54260524 / Confirmed Cancer//left side of neck / SNOMED CT 9224551360 / Confirmed Renal calculus / SNOMED CT 142922882 / Confirmed Thyroid disease / SNOMED CT 941479401 / Confirmed TIA (transient ischemic attack) 2013 and 05/2018 / SNOMED CT 786497971 / Confirmed, Active Problems (21) Arthritis At [...] Nebulized Inhalation, RT_Q6H, PRN: Shortness of Breath Lipitor: 20 mg, Oral, At Bedtime Milk [...] Nausea aspirin: 81 mg, Oral, Daily carvedilol: 12.5 mg, Oral, BID clopidogrel: 75 mg, Oral, At Bedtime glimepiride: 4 mg, Oral, With Breakfast heparin: 5,000 Units, SubCutaneous, Q8H hydrALAZINE: 10 mg, IV Push, Q6H, PRN: Other (See Comment) insulin lispro sliding scale: Scale A:, SubCutaneous, AC and at Bedtime levothyroxine: 88 mcg, Oral, Daily lisinopril: 5 mg, Oral, BID pantoprazole: 40 mg, Oral, Daily Incomplete Triple Strength Red Krill Oil 1000 mg oral capsule: 1,000 mg, 1 Cap, Oral, Daily Documented Medications Documented Triple Strength [...] = 1 Tab, Oral, Daily , Medications (20) Active Scheduled: (13) aspirin EC 81 mg tab 81 mg 1 Tab, Oral, Daily atorvastatin 20 mg tab 20 mg 1 Tab, Oral, At Bedtime carvedilol 12.5 mg tab 12.5 mg 1 Tab, Oral, BID cholecalciferol 1,000 unit tab 2,000 Units 2 [...] tab 5 mg 1 Tab, Oral, BID multivitamin Vitamin B complex tab 1 Tab, Oral, Daily pantoprazole EC 40 mg tab [...] Last Charted Minimum Maximum Temp 98.1 (DEC 01 11:30) 97.5 (DEC 01 02:00) 99.0 (DEC 01 06:37) Apical HR 85 (NOV 30 22:43) 72 (NOV 30 21:38) 85 (NOV 30 22:43) Mon HR 57 (DEC 01 12:30) 57 (DEC 01 11:00) 74 (NOV 30 19:27) Periph HR 60 (NOV 30 16:16) 60 (NOV 30 16:16) 60 (NOV 30 16:16) Resp Rate 16 (DEC 01:37) 14 (DEC 01 02:00) H 34 (NOV 30 21:38) SBP H 171 (DEC 01 12:30) 96 (DEC 01 01:00) H 206 (NOV 30 20:37) DBP 74 (DEC 01 12:30) L 44 (DEC 01 01:00) H 92 (NOV 30 21:00) MAP 93 (DEC 01 12:30) 60 (DEC 01 01:00) 147 (NOV 30 21:00) SpO2 96 (DEC 01 11:15) 94 (NOV 30 19:27) 98 (NOV 30 20:45) Physical Examination VS/Measurements Vitals Signs (last 24 hrs) Last Charted Minimum Maximum Temp 98.1 (DEC 01:30) 97.5 (DEC 01 02:00) 99.0 (DEC 01:37) Apical HR 85 (NOV 30 22:43) 72 (NOV 30:38) 85 (NOV 30 22:43) Mon HR 57 (DEC 01 12:30) 57 (DEC 01 11:00) 74 (NOV 30 19:27) Periph HR 60 (NOV 30 16:16) 60 (NOV 30 16:16) 60 (NOV 30 16:16) Resp Rate 16 (DEC 01:37) 14 (DEC 01 02:00) H 34 (NOV 30 21:38) SBP H 171 (DEC 01 12:30) 96 (DEC 01 01:00) H 206 (NOV 30 20:37) DBP 74 (DEC 01 12:30) L 44 (DEC 01 01:00) H 92 (NOV 30 21:00) MAP 93 (DEC 01 12:30) 60 (DEC 01 01:00) 147 (NOV 30 21:00) SpO2 96 (DEC 01 11:15) 94 (NOV 30 19:27) 98 (NOV 30 20:45) , Measurements from flowsheet : Measurements 11/30/2018 19:43 EDT Height Source Stated Height Entry Format [place] Height/Length, [place] (ft) 5 ft Height/Length [place] 11 Inch CLINICALHEIGHT 180.34 cm [place] Body Weight 74 kg Weight Source Bed scale Weight Entry Format [place] Weight [place] lb 148.4 lb CLINICALWEIGHT 67.45 kg Body Surface Area (BSA) 1.86 m2 Body Mass Index 20.7 kg/m2 11/30/2018 16:16 EDT Height Source Stated Height Entry Format [place] Height/Length, [place] (ft) 5 ft Height/Length [place] 7 Inch CLINICALHEIGHT 170.18 cm [place] Body Weight 65.16 kg Weight Source, ED Standing scale Weight Entry Format [place] Weight [place] lb 148.4 lb CLINICALWEIGHT 67.45 kg Body Surface Area (BSA) 1.78 m2 Body Mass Index 23.3 kg/m2 General: Alert and oriented, No acute distress. Eye: Pupils are equal, round and reactive to light, Extraocular movements are intact. HENT: Normocephalic, Normal hearing. Respiratory: Lungs are clear to auscultation, Breath sounds are equal. Cardiovascular: Normal rate, Regular rhythm. Gastrointestinal: Soft, Non-tender, Normal bowel sounds. Neurologic: Alert, Oriented. Psychiatric: Cooperative, Appropriate mood [...] status post recent stent Continue with platelet [facility] surgery- consult. dc 7-7 by [facility] surfgery -Hypertension, labile Hold oral hypoglycemic agent at admission Ordered orthostatic vitals -coreg 6 q 6 hr -lisinopril 5 bid -clonidine 0.1 bid at home. will try to get away from clonidine because rebound htn -alisha onStage III kidney disease Monitor kidney function Avoid toxic medications Gentle IV hydration. creat 1.7 to 1.2 -Diabetes mellitus Hold oral hypoglycemic agent Insulin [...] can taper titrate. started lisinorpl 5 bid. Jamalon dictation system used. Computer program makes numerous spelling grammar mistakes. If you have any questions or concerns do not hesitate call Dr. Max Holbrook at cell phone number [phone]. documented in this encounter Plan of Treatment Not on file documented as of this encounter Visit Diagnoses Not on filedocumented in this encounter
--- OUTSIDE RECORDS SUMMARY | 2024-11-24 18:05 | XMS_ITS | Encounter Summary ---
Author Organization [employer] ([place], [place], [place], [place]) Address [address] [place] [address] Care Team Providers Care Gem Setter Name Role Phone Unavailable Primary Care Provider Unavailabl e Encounter Details Date Type Department Care Team (Late st Contact Info) Description 12/01/2018 Transcribed Document [facility] [place] Family Medicine [address] [place] [address] ProviderBrianne MD [address] [place], [place] [phone] Social History Tobacco Use Types Packs/Day Years [...] Consult Phone Call Documentation Entered On: 12/01/2018 8:19 EDT Performed On: 12/01/2018 4:37 EDT [facility] Phone Call for Consults Consult Phone Call/Page Attempt : First call Consult, Additional Information : [place] [phone] on 12/01/18 [facility] - 12/01/2018 8:18 EDT documented in this encounter Plan of Treatment Not on file documented as of this encounter Visit Diagnoses Not on filedocumented in this encounter
--- OUTSIDE RECORDS SUMMARY | 2024-11-24 18:05 | XMS_ITS | Encounter Summary ---
Author Organization [employer] ([place], [place], [place], [place]) Address [address] [place] [address] Care Team Providers Care Filler Shredder Name Role Phone Unavailable Primary Care Provider Unavailabl e Encounter Details Date Type Department Care Team (Late st Contact Info) Description 12/01/[address] [facility] [place] Family Medicine [address] [place] [address] ProviderBrianne MD [address], [place] [phone] Social History Tobacco Use Types Packs/Day Years [...] Brianne ProviderMD - 12/01/2018 2:17 PM CDT Nutrition Assessment Entered On: 12/02/2018 14:55 EDT Performed On: 12/02/2018 14:55 EDT by Pascale Morales RD, [place] Nutrition Assessment Nutrition Assessment Reason : Automatic referral Pascale Morales RD, LD - 12/02/2018 14:54 EDT Nutrition Recommendations Dietitian Recommendations : (12/02) RD consult rec'd for stroke powerplan. Pt is on 45g CHO diet-intake being established. Labs and meds reviewed. No skin or GI issues at this time. No nutritional concerns identified. RD will check on in 3-4 days for po intake establishment or available prn. Pascale Morales RD, LD - 12/02/2018 14:54 EDT documented in this encounter Plan of Treatment Not on file documented as of this encounter Visit Diagnoses Not on filedocumented in this encounter
--- OUTSIDE RECORDS SUMMARY | 2024-11-24 18:05 | XMS_ITS | Encounter Summary ---
Author Organization [employer] ([place], [place], [place], [place]) Address [address] [place] [address] Care Team Providers Care Stamp Pad Maker Name Role Phone Unavailable Primary Care Provider Unavailabl e Encounter Details Date Type Department Care Team (Late st Contact Info) Description 12/01/2018 Transcribed Document [facility] [place] [address] [place] [address] ProviderBrianne MD [address], [place] [phone] Social History Tobacco Use Types Packs/Day Years Used Date Smoking Tobacco: Never Assessed Sex and Gender Information Value Date Recorded Sex Assigned at Male 11/21/2021 1:59 PM CDT Legal Sex Male 1:59 PM CDT Gender Identity Male 11/21/2021 1:59 PM CDT Sexual Orientation Not on file documented as of this encounter Miscellaneous Notes * Cerner Conversion Note - Brianne ProviderMD - 12/01/2018 3:47 PM CDT [facility] Therapy Screen Entered On: 12/01/2018 15:47 EDT Performed On: 12/01/2018 15:47 EDT by NAEL LAST NURSE ST[facility]FF [facility] Therapy Screen Medical Chart Reviewed, NURSE STAFF [facility] : Yes Information Obtained From, NURSE STAFF [facility] : Family, Patient Therapy Screen Completed, NURSE STAFF [facility] : Yes Recommendations for Evaluation NURSE STAFF [facility] : None Therapy Screen Comment, NURSE STAFF [facility] : No further ST. Skills are at baseline. NAEL LAST SLP - 12/01/2018 15:47 EDT Electronically signed by Cari Cox Br[place] Conversion Occupational Therapy Specialist [employer] at 09/13/2022 4:30 PM CDT documented in this encounter Plan of Treatment Not on file documented as of this encounter Visit Diagnoses Not on filedocumented in this encounter
--- OUTSIDE RECORDS SUMMARY | 2024-11-24 18:05 | XMS_ITS | Encounter Summary ---
Author Organization [employer] ([place], [place], [place], [place]) Address [address] [place] [address] Care Team Providers Care Agricultural Engineer Name Role Phone Unavailable Primary Care Provider Unavailabl e Encounter Details Date Type Department Care Team (Late st Contact Info) Description 01/07/2019 Transcribed Document [facility] [place] Medicine [facility] [place] [address] ProviderBrianne MD [address], [place] [phone] Social History Tobacco Use Types Packs/Day Years Used Date Smoking Tobacco: Never Assessed Sex and Gender Information Value Date Recorded Sex Assigned at Male 11/21/2021 1:59 PM CDT Legal Sex Male 1:59 PM CDT Gender Identity Male 11/21/2021 1:59 PM CDT Sexual Orientation Not on file documented as of this encounter Miscellaneous Notes * Cerner Conversion Note - Brianne ProviderMD - 01/07/2019 9:00 PM CDT Pain Assessment Entered On: 01/07/2019 23:18 EDT Performed On: 01/07/2019 21:32 EDT by Woodrow Everett Rn Intervention Information: oxyCODONE Performed by Woodrow Everett Rn on 01/07/2019 20:32:00 EDT oxyCODONE,10mg Oral Pain Assessment Pain Assessment : Follow-up assessment Pain Scale Goal : 4 Pain Scale Used : 0-10 Scale Location : Hip, right Onset : Acute Quality : Aching, Dull Pain Radiation : No Pain Improved by : Medication Pain Worsened by : Movement Pain Improved by Intervention : Yes Woodrow Everett Rn - 01/07/2019 23:17 EDT Pain Scale Intensity : 4 Woodrow Everett Rn - 01/07/2019 23:17 EDT Image 4 - Images currently included in the form version of this document have not been included in the text rendition version of the form. Electronically signed by Victor Manuel Alcala Conversion Student Services Counselor [employer] at 09/14/2022 12:20 PM CDT documented in this encounter Plan of Treatment Not on file documented as of this encounter Visit Diagnoses Not on filedocumented in this encounter
--- OUTSIDE RECORDS SUMMARY | 2024-11-24 18:05 | XMS_ITS | Encounter Summary ---
Author Organization [employer] ([place], [place], [place], [place]) Address [address] [place] [address] Care Team Providers Care Pigment And Lacquer Mixer Name Role Phone Unavailable Primary Care Provider Unavailabl e Encounter Details Date Type Department Care Team (Late st Contact Info) Description 11/30/2018 Transcribed Document [facility] [place] Family Medicine [facility] [place] [address] ProviderBrianne MD [address] [place] [id number] Social History Tobacco Use Types Packs/Day [...] Note - Brianne Kim MD - 11/30/2018 10:11 AM CDT [facility] [place] [address] NADER TOLENTINO :1940 Visit Time:11/29/2018 Your Visit Summary Your Care Team Admitting Physician - YUE BURNS MD-SUR Attending Physician - YUE BURNS MD-SUR Referring Physician - YUE BURNS MD-SUR Your Diagnosis Carotid artery stenosis, Carotid stenosis Discharge Vitals Temperature 36.6 ??C Heart Rate (Monitored) 56 Respiratory Rate 24 Blood Pressure 126/57 What to do next Instructions From Your Care Team Discharge Activity: Discharge Activity: Activity as tolerated Diet: Discharge Diet: Resume usual diet as tolerated Wound/Incision Care Instructions: Keep operative site/wound clean and dry Showering/Bathing Instructions: May shower Follow-Up Appointments Follow Up with Follow up with primary care provider When Within 2 to 3 days Comments Call for follow up appointment within one week Follow Up with YUE BURNS When In 2 weeks Comments Call on December 01, 2018 for appointment Where: [address] [place], [place] [id number]- [phone] [facility] (1) Medications What How Much When Instructions Next Dose carvedilol (carvedilol 12.5 mg oral tablet) 1 Tablet(s) Oral Two Times A Day this evening this evening aspirin 81 Milligram(s) Oral Every Day tomorrow tomorrow cholecalciferol (Vitamin D3) 2,000 International Units Oral Every Day tomorrow tomorrow cloNIDine (clonidine 0.1 mg oral tablet) Oral Two Times A Day this evening this evening clopidogrel 75 Milligram(s) Oral At Bedtime this evening this evening cyanocobalamin (Vitamin B12) 1,000 Microgram(s) Oral Every Day tomorrow tomorrow glimepiride 4 Milligram(s) Oral Every Day tomorrow tomorrow levothyroxine 88 Microgram(s) Oral Every Day tomorrow tomorrow lisinopril 20 Milligram(s) Oral Every Day tomorrow tomorrow multivitamin (Vitamin B Complex oral capsule) 1 Capsule(s) Oral Every Day tomorrow tomorrow omega-3 polyunsaturated fatty acids (Inotrem's Bounty Red Krill Oil) 350 Milligram(s) Oral Every Day tomorrow tomorrow omeprazole 40 Milligram(s) Oral At Bedtime tomorrow tomorrow simvastatin 40 Milligram(s) Oral At Bedtime this evening this evening ubiquinone (elppa CoQ10 50 mg oral capsule) 2 Capsule(s) Oral Every Day tomorrow tomorrow Take your medications faithfully. Do NOT skip [...] disease) Immunizations This Visit No Immunizations Found Education Materials Carotid Angioplasty With Stent, Care After Refer to this sheet in the next few weeks. These instructions provide you with information about caring for yourself after your procedure. Your health care provider may also give you more specific instructions. Your treatment has been planned according to current medical practices, but problems sometimes occur. Call your health care provider if you have any problems or questions after your procedure. What can I expect after the procedure? After the procedure, it is common to have: ??? Bruising at the catheter site. This usually fades within 1???2 weeks. ??? A small amount of blood or clear fluid coming from your surgical cut (incision). ??? Blood collecting underneath your skin (hematoma) around the catheter site. This may form a lump that you can see and feel. The lump may be sore and tender. This usually lasts for 1???2 weeks. Follow these instructions at home: Medicines ??? Take nsit-grk-dvjowma and prescription medicines only as told by your health care provider. ??? If you were prescribed an antibiotic medicine, take it as told by your health care provider. Do not stop taking the antibiotic even if you start to feel better. Incision care ??? Keep your incision area clean and dry. ??? Follow instructions from your health care provider about how to take care of your incision. Make sure you: ? Wash your hands with soap and water before you change your bandage (dressing). If soap and water are not available, use hand retreader. ? Change your dressing as told by your health care provider. ? Leave stitches (sutures), skin glue, or adhesive strips in place. These skin closures may need to stay in place for 2 weeks or longer. If adhesive strip edges start to loosen and curl up, you may trim the loose edges. Do not remove adhesive strips completely unless your health care provider tells you to do that. ??? Check your incision area every day for signs of infection. Check for: ? More redness, swelling, or pain. ? More fluid or blood. ? Warmth. ? Pus or a bad smell. Activity ??? Return to your normal activities as told by your health care provider. Ask your health care provider what activities are safe for you. ??? Do not lift anything that is heavier than 10 lb (4.5 kg) until your health care provider says that you can do this. ??? Avoid sexual activity until your health care provider says that this is safe for you. ??? Exercise regularly, as told by your health care provider. Ask your health care provider what types of exercise are safe for you. Eating and drinking ??? Follow instructions from your health care provider about eating or drinking restrictions. ??? Drink enough fluid to keep your urine clear or pale yellow. ??? Eat a heart-healthy diet. This should include plenty of fresh fruits and vegetables. Meat should be lean cuts. Avoid foods that are: ? High in salt, saturated fat, or sugar. ? Canned or highly processed. ? Fried. Lifestyle ??? Limit alcohol intake to no more than 1 drink per day for non women and 2 drinks per day for men. One drink equals 12 oz of beer, 5 oz of wine, or 1?? oz of hard liquor. ??? Do not use any tobacco products, such as cigarettes, chewing tobacco, or e-cigarettes. If you need help quitting, ask your health care provider. ??? Work with your health care provider to keep your blood pressure under control. ??? Maintain a healthy weight. General instructions ??? Do not drive or operate heavy machinery while taking prescription pain medicine. ??? Do not take baths, swim, or use a hot tub until your health care provider approves. ??? Tell all health care providers who care for you that you have a stent. ??? Keep all follow-up visits as told by your health care provider. This is important. Contact a health care provider if: ??? You have more redness, swelling, or pain around your incision. ??? You have more fluid or blood coming from your incision. ??? Your incision area feels warm to the touch. ??? You have pus or a bad smell coming from your incision. ??? You have a lump caused by a hematoma that does not go away after 2 weeks. ??? You have a fever. Get help right away if: ??? You have vision changes or loss of vision. ??? You have numbness or weakness on one side of your body. ??? You have difficulty talking. ??? You have slurred speech or you cannot speak (aphasia). ??? You suddenly feel very confused. ??? You notice a hematoma that is quickly getting larger (expanding). ??? You suddenly develop pain in the area where your stent was placed. ??? Your incision begins to bleed and does not stop after you hold pressure on it for 30 minutes. These symptoms may be an emergency. Do not wait to see if the symptoms will go away. Get medical help right away. Call your local emergency services (911 in the [place] Do not drive yourself to the hospital. This information is not intended to replace advice given to you by your health care provider. Make sure you discuss any questions you have with your health care provider. Document Released: 08/02/2006 Document Revised: 10/18/2016 Document Reviewed: 02/05/2016 Elsevier Interactive Patient Education ?? 2019 Elsevier Inc. Emergency Awareness and Preventative Care STROKE is an EMERGENCY Every Minute Counts Act FAST and Check for these signs: FACE Does the face look uneven? ARM Does one arm drift down? SPEECH Does their speech sound strange? TIME Call at any sign of stroke Stroke Risk Factors Atrial Fibrillation (irregular heartbeat) Diabetes Family history of stroke Heart Disease Heavy alcohol use High Blood Pressure High Cholesterol Physical inactivity and obesity Smoking Cigarette Smoking The facts are clear, cigarette smoking will shorten your life. Smoking can cause many illnesses along the way. As a healthcare provider, we recommend that you stop smoking. Assistance with quitting is available by contacting 0-629-WQCSNOW. This is a free resource providing counseling, support, and referral. Or you may contact your personal physician. [place] Suicide Prevention Lifeline: The National Suicide Prevention Lifeline is a national network of local crisis centers that provides free and confidential emotional support to people in suicidal crisis or emotional distress 24 hours a day, 7 days a week. Don't Wait! Stop a Heart Attack Before it Starts What is a heart attack? A heart attack is damage or to a part of the heart from severely decreased or lack of blood flow to the heart. Over time, arteries can become narrow from the buildup of fat and cholesterol, which is called plaque. The plaque can rupture causing a blood clot to form. When the blood clot forms, the artery can become severely narrowed or completely blocked, causing a heart attack. Heart attack is the leading cause of in the [place]. 85% of muscle damage occurs within the first 2 hours. Delay in the recognition of heart attack symptoms increases the chances of . Know the early symptoms of a heart attack: Nausea Feeling of fullness in chest Jaw Pain Pain that travels down one or both arms Fatigue/being tired Anxiety Back Pain Chest pressure, squeezing, or discomfort Shortness of breath Sweating, or a cold sweat Feeling of impending doom There are unusual signs of a heart attack, too! Women, the elderly, and diabetics may present with atypical symptoms: Fainting/dizziness Weakness Confusion Risk Factors for a Heart Attack Some heart disease risk factors, such as age and family history, cannot be changed. Others, like smoking and lack of exercise, can be changed. Smoking High Cholesterol High Blood Pressure Family History Obesity Age Gender (Males are at higher risk) Lack of Exercise Diabetes Diet Stress Excessive Alcohol Intake If you or someone you know is experiencing the signs and symptoms of a heart attack, DON???T DELAY. Call immediately and seek help. If someone collapses, perform CPR! Do not attempt to drive if you are having symptoms of heart attack. Hands-Only CPR Why Hands-Only CPR? Hands-Only CPR has been shown to be as effective as conventional CPR for cardiac arrests that occur outside of a hospital. Survival depends on immediately receiving CPR from someone nearby. How do you perform Hands-Only CPR? There are two easy steps: Call 9-1-1 if you see a teen or adult collapse Push hard and fast in the center of the chest at a beat of 100 beats per minute. Save a life! 4 WAYS TO GET AHEAD OF SEPSIS SEPSIS is a MEDICAL EMERGENCY. Time matters! Infections put you and your family at risk for a life-threatening condition called sepsis. Sepsis is the body's extreme response to an infection. It is life-threatening, and without timely treatment, sepsis can rapidly lead to tissue damage, organ failure, and . Sepsis happens when an infection you already have-in your skin, lungs, urinary tract or somewhere else-triggers a chain reaction throughout your body. 1 PREVENT INFECTIONS Take good care of chronic conditions. Talk to your doctor about getting the recommended vaccines. 2 PRACTICE GOOD HYGIENE Wash your hands frequently. Keep cuts or open sores clean and covered until they are healed. 3 KNOW THE SYMPTOMS Confusion or disorientation Shortness of breath High heart rate Fever, shivering, or feeling very cold Extreme pain or discomfort Clammy or sweaty skin 4 ACT FAST Get medical care IMMEDIATELY if you suspect sepsis or if you have an infection that is not getting better or is getting worse. To learn more about sepsis and how to prevent infections, visit www.cdc.gov/sepsis. Test Results Laboratory or Other Results This Visit (last charted value for your 11/29/2018 visit) Hematology 11/29/18 04:47:00 WBC: 8.6 K/uL -- Normal range between ( 3.6 and 9.5 ) RBC: 4.45 Million/uL -- Normal range between ( 4.20 and 5.70 ) Hct: 42.1 % -- Normal range between ( 40.1 and 51.0 ) Hgb: 13.6 g/dL -- Normal range between ( 13.5 and 17.3 ) Platelet Count: 198 K/uL -- Normal range between ( 163 and 369 ) MCH: 30.6 pg -- Normal range between ( 25.6 and 32.2 ) MCHC: 32.3 Gram/dL -- Normal range between ( 32.2 and 36.5 ) MCV: 94.6 fL -- Normal range between ( 79.0 and 94.8 ) Slide Review: No RDW: 12.9 % -- Normal range between ( 11.7 and 14.9 ) MPV: 10.1 fL -- Normal range between ( 9.4 and 12.4 ) 11/28/18 12:16:00 Hemoglobin POC: 14.3 Gram/dL -- Normal range between ( 12.0 and 17.0 ) Hematocrit POC: 42.0 % -- Normal range between ( 38.0 and 51.0 ) General Chemistry 11/30/18 07:02:00 Glucose POC2: 108 mg/dL -- Normal range between ( 70 and 110 ) Device Comment 1: Device Comment 1 11/29/18 04:47:00 Creatinine Level: 1.30 mg/dL -- Normal range between ( 0.70 and 1.30 ) Sodium Level: 142 mmol/L -- Normal range between ( 136 and 146 ) Potassium Level: 4.3 mmol/L -- Normal range between ( 3.5 and 5.1 ) Chloride Level: 112 mmol/L -- Normal range between ( 102 and 112 ) Carbon Dioxide Level: 27 mmol/L -- Normal range between ( 21 and 32 ) Anion Gap: 7 -- Normal range between ( 9 and 20 ) Bun/Creatinine: 18.5 -- Normal range between ( 8.0 and 20.0 ) Calcium Level: 9.5 mg/dL -- Normal range between ( 8.4 and 10.1 ) eGFR : >60 mL/min/1.73m2 eGFR NonAfrican: 54 mL/min/1.73m2 Glucose Level: 129 mg/dL -- Normal range between ( 74 and 106 ) Blood Urea Nitrogen: 24 mg/dL -- Normal range between ( 7 and 22 ) 11/28/18 12:16:00 Sodium POC: 144 mmol/L -- Normal range between ( 138 and 146 ) Ca Ioniz POC: 1.40 mmol/L -- Normal range between ( 1.12 and 1.32 ) Potassium POC: 5.2 mmol/L -- Normal range between ( 3.5 and 4.9 ) Creatinine POC: 1.6 mg/dL -- Normal range between ( 0.6 and 1.3 ) BUN POC: 33 mg/dL -- Normal range between ( 8 and 26 ) CO2 POC: 24.0 mmol/L -- Normal range between ( 24.0 and 29.0 ) Chloride POC: 111 mmol/L -- Normal range between ( 98 and 109 ) Glucose POC: 103 mg/dL -- Normal range between ( 70 and 105 ) Anion Gap POC: 15.0 mmol/L -- Normal range between ( 10.0 and 20.0 ) Patient Name:NADER TOLENTINO I have received and understand this information and was given the opportunity to ask questions. Patient/Photographer News Name: Patient/Photographer News Signature: Relationship to Patient: Clinician/Hospital Photographer News Signature: Date: documented in this encounter Plan of Treatment Not on file documented as of this encounter Visit Diagnoses Not on filedocumented in this encounter
--- OUTSIDE RECORDS SUMMARY | 2024-11-24 18:05 | XMS_ITS | Encounter Summary ---
Author Organization [employer] ([place], [place], [place], [place]) Address [address] [place] [address] Care Team Providers Care Optometry Teacher Name Role Phone Unavailable Primary Care Provider Unavailabl e Encounter Details Date Type Department Care Team (Late st Contact Info) Description 12/01/2018 Transcribed Document [facility] [place] Family Medicine [address] [place] [address] ProviderBrianne MD [address] [id number] Social History Tobacco Use Types Packs/Day Years Used Date Smoking Tobacco: Never Assessed Sex and Gender Information Value Date Recorded Sex Assigned at Male 11/21/2021 1:59 PM CDT Legal Sex Male 1:59 PM CDT Gender Identity Male 11/21/2021 1:59 PM CDT Sexual Orientation Not on file documented as of this encounter Miscellaneous Notes * [employer]ner Conversion Note - Brianne ProviderMD - 12/01/2018 1:31 PM CDT Consult Phone Call Documentation Entered On: 12/01/2018 16:55 EDT Performed On: 12/01/2018 13:31 EDT [facility] Call for Consults Consult Phone Call/Page Attempt : First call Consult, Additional Information : consult called to torrie solano at 1655 on 12/01/[address] [facility] 12/01/2018 16:55 EDT Electronically signed by [facility] Conversion Corporate Legal Secretary Cerner at 09/13/2022 4:30 PM CDT documented in this encounter Plan of Treatment Not on file documented as of this encounter Visit Diagnoses Not on filedocumented in this encounter
--- OUTSIDE RECORDS SUMMARY | 2024-11-24 18:05 | XMS_ITS | Encounter Summary ---
Author Organization [employer] ([place], [place], [place], [place]) Address [address] [place] [address] Care Team Providers Care Industrial Staff Nurse Name Role Phone Unavailable Primary Care Provider Unavailabl e Encounter Details Date Type Department Care Team (Late st Contact Info) Description 12/01/2018 Transcribed Document [facility] [place] Family Medicine [place] [address] ProviderBrianne MD [address], [place] [id number] Social History Tobacco Use Types Packs/Day Years Used Date Smoking Tobacco: Never Assessed Sex and Gender Information Value Date Recorded Sex Assigned at Male 11/21/2021 1:59 PM CDT Legal Sex Male 1:59 PM CDT Gender Identity Male 11/21/2021 1:59 PM CDT Sexual Orientation Not on file documented as of this encounter Miscellaneous Notes * Cerner Conversion Note - Brianne Kim MD - 12/01/2018 2:17 PM CDT Swallow Evaluation Entered On: 12/01/2018 15:59 EDT Performed On: 12/01/2018 15:30 EDT by NAEL LAST, BRAIDER TENDER General Information Visit Type, BRAIDER TENDER : Initial evaluation Patient Orders : Speech Language Pathology Swallow Evaluation and Treatment -111 Start: 12/01/18 14:17:00 EDT, Routine, For Swallow Eval and Treat, Ischemic Stroke - RIVAS COBURN MD-KALINA Admission Date : Admission Date/Time: 11/30/18 19:19:00 Medical Chart Reviewed, BRAIDER TENDER : Yes Personal Devices : Personal Devices No Devices Recorded Assistive Devices : Assistive Devices No Devices Recorded Active Diagnoses : 11/30/2018 00:00 Altered mental status 11/30/2018 00:00 Disorientation, unspecified 11/30/2018 00:00 Other disorder of circulatory system Therapy Diagnosis, BRAIDER TENDER : Normal oral phase of the swallow. 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 Previous Speech/Language Evaluations : voice/resonance impairment post Rx. Previous Swallow Precautions : No hx in EMR Previous Cognitive Evaluations : No baseline deficits reported Diet/Intake Prior to Current Admission : Regular/thin Diet/Intake During Current Admission : Regular/thin then made NPO. Intubation Comment, BRAIDER TENDER : n/a Vital Signs RTF : Vitals Temp BP Pulse RR SpO2 FIO2 Date Wt(kg) Wt(lb) 12/01 12:30 ---- 171/74 --- -- --- --- 11/30 67.5 148 12/01 12:00 ---- 171/74 --- -- --- --- 11/30 67.5 148 12/01 11:15 ---- ----- --- -- 96 --- 12/01 11:00 ---- 124/48 --- -- --- --- 12/01 10:45 ---- 179/82 --- -- --- --- 24 Hr Tmax: No Data Available 36 Hr Tmax: No Data Available Vital Signs are the last 5 in the past 48 hours. Weights display the last 5 within 7 days. Initial Wt: 11/30 67.5 kg 148 lb Respiratory Assessment Comment : Room air NAEL LAST SLP - 12/01/2018 15:49 EDT General Status Patient Received Status, BRAIDER TENDER : Long sitting in bed Patient Left Status, BRAIDER TENDER : Long sitting in bed NAEL LAST SLP - 12/01/2018 15:49 EDT Pain Assessment Pain Scaled Used : 0-10 Pain scale (Comment: No pain c/o [NAEL LAST SLP - 12/01/2018 15:49 EDT] ) NAEL LAST SLP - 12/01/2018 15:49 EDT Image 1 - Images currently included in the form version of this document have not been included in the text rendition version of the form. Oral Mechanism Dysarthria : Yes Brief Phonation Quality : Dysphonic Resonance Types : Hyponasal Oral Mechanism for Daily Living : Intact BRAIDER TENDER Cough : Strong Facial Appearance: : Asymmetrical, Left Labial Appearance : Symmetrical Labial Function : All function intact Dental/Orthodontia : Teeth, own Lingual Appearance : Symmetrical Lingual Function : All function intact NAEL LAST SLP - 12/01/2018 15:49 EDT Bedside Swallow Swallow Outcome BS Swallow : Intact Head Control BS Swallow : Neutral head position Presentation Style BS Swallow : Clinician Swallow Position BS Swallow : Upright 90 degrees Trunk Control BS Swallow : Upright centered position Consistencies Trialed BS Swallow : Thin by cup, Pudding, Regular solids NAEL LAST SLP - 12/01/2018 15:49 EDT Swallow Impressions Impressions, BS Swallow : Signs/Symptoms of pharyngeal dysphagia Bedside Swallow Overall Impressions : Pt is awake and alert. Speech is at baseline, however detected impaired resonance and voicing. Daughter reports family/friends/medical staff frequently ask if pt has a cold . Oral skills are functional. Pt exhibited no difficulty manipulating po- thin/pudding/solids. Intermittent, mild pharyngeal signs consisting of wet vocal quality cleared with a throat clear/2nd swallow. Presenting pharyngeal signs appear to be baseline. Pt and family confirm slow po and intermittent coughing. Both deny pneumonia, upper respiratory infections, or difficulty breathing. Pt appears to be at baseline. No further ST indicated at this time. NAEL LAST SLP - 12/01/2018 15:49 EDT Swallow Recommendations Recommended Diet Type, SwRec : Regular Recommended Liquid Diet, SwRec : Thin Swallow Position, SwRec : Upright 90 degrees Comp Strategies/Sw Precautions, SwRec : Allow extra time to swallow Supervision Level w/Meals, SwRec : Independent, complete Recommended Med Present, SwRec : As per nursing NAEL LAST SLP - 12/01/2018 15:49 EDT Therapy Indication Assessment BRAIDER TENDER Indicated : No BRAIDER TENDER Not Indicated : At prior level of function NAEL LAST SLP - 12/01/2018 15:49 EDT Swallow Plan/Goals Treatment Frequency, BRAIDER TENDER : Other: No further ST Treatment Plan Est w/Pt/Caregvr, Swallow : Yes NAEL LAST SLP - 12/01/2018 15:49 EDT Education Barriers To Learning : Hearing deficit Individuals Taught : Patient, Child Readiness to Learn : Cooperative Readiness to Learn : Explanation NAEL LAST SLP - 12/01/2018 15:49 EDT BRAIDER TENDER Education Assessment Grid 1 Aspiration : Verbalizes understanding Diet Recommendation : Verbalizes understanding NAEL LAST, DIANA - 12/01/2018 15:49 EDT BRAIDER TENDER Education Assessment Grid 2 Treatment Plan : Verbalizes understanding NAEL LAST SLP - 12/01/2018 15:[address] [facility] BRAIDER TENDER Charges Evaluation Swallowing Function : 1 NAEL LAST SLP - 12/01/2018 15:49 EDT documented in this encounter Plan of Treatment Not on file documented as of this encounter Visit Diagnoses Not on filedocumented in this encounter
--- OUTSIDE RECORDS SUMMARY | 2024-11-24 18:05 | XMS_ITS | Encounter Summary ---
Author Organization [employer] ([place], [place], [place], [place]) Address [address] [place] [address] Care Team Providers Care Amphibious Operations Officer Name Role Phone Unavailable Primary Care Provider Unavailabl e Encounter Details Date Type Department Care Team (Late st Contact Info) Description 11/30/2018 Transcribed Document [facility] [place] [facility] [place] [address] ProviderBrianne MD [facility] [place], [place] [id number] Social History Tobacco Use Types Packs/Day Years Used Date Smoking Tobacco: Never Assessed Sex and Gender Information Value Date Recorded Sex Assigned at Male 11/21/2021 1:59 PM CDT Legal Sex Male 1:59 PM CDT Gender Identity Male 11/21/2021 1:59 PM CDT Sexual Orientation Not on file documented as of this encounter Miscellaneous Notes * Cerner Conversion Note - Brianne ProviderMD - 11/30/2018 7:43 PM CDT Admission History, Adult Entered On: 11/30/2018 22:15 EDT Performed On: 11/30/2018 19:43 EDT by Poppy Hardin RN Advance Directive Patient has Advance Directive *Q : Yes, Advance Directive on file Advance Directive Type : Living will Copy Advance Directive Verified/on Chart : No Poppy Hardin RN - 11/30/2018 22:05 EDT Anesthesia/Transfusion History Family History of Anesthesia Reaction : No prior transfusion(s) Transfusion History : Prior anesthesia without reaction Family History of Anesthesia Reaction : None Poppy Hardin RN - 11/30/2018 22:05 EDT Functional Assessment Living Situation : Home Patient Lives With : Adult Child/Children Current Daily Living Assistance : Housekeeping, Transportation Sensory Deficits : None Mobility Assistance Prior to Admission : Partial assistance FLORES Hx Falls Immediate/Within 3 Months : No Current Home Treatments : Blood glucose monitoring Poppy Hardin RN - 11/30/2018 22:05 EDT General Info Mode of Arrival on Unit : Ambulatory Legal Guardian : Daughter Contact Password : [address] Family/Rep/Phys Notified of Admit : No Emergency Contact #1 : Julissa Briggs Emergency Contact #1 Phone Number : [phone] Emergency Contact #1 Relationship : daughter Emergency Contact #2 : na Emergency Contact #2 Phone Number : na Emergency Contact #2 Relationship : na Chief Complaint : pt d/c from hospital at 13:00 today, per family pt disorieted, confused, not acting right, unsteady gait. Information Obtained From : Patient, Daughter Primary Language : Mozambican Preferred Communication Mode : Verbal Communication Barrier : None Poppy Hardin RN - 11/30/2018 22:05 EDT Fall Risk Scales ABCs Fall Injury Risk Identification : Age, Coagulation, Surgery ABC Fall Injury Risk : Moderate to [...] Scale Risk Level : 0-24 Low Risk [place] Fall Interventions : Adequate lighting, Assistive devices within reach, Bed in low position, Call device within reach, Fall prevention handout/education per facility policy, Frequent orientation to call device, Frequent orientation to surroundings, Hourly comfort/safety rounds, Non-slip footwear, Personal items within reach, Reinforced to call for assistance before getting out of bed, Room free of clutter/spills, Upper side-rails up, Wheels locked, Wires/Cords secured Poppy Hardin RN - 11/30/2018 22:05 EDT Health Histories Smoking Status : Never (less than 100 in lifetime; none in last 30 days) Smokeless Tobacco Status : Never Poppy Hardin RN - 11/30/2018 22:05 EDT Social History (As Of: 11/30/2018 22:15:29 EDT) Tobacco: Never (less than 100 in [...] 11/12/2018 08:41:45 EDT by JAX MENDEZ RN) Height and Weight, Clinical Dosing Height Source : Stated Height Entry Format : [place] Height, Feet : 5 ft(Converted to: 152 cm, 60 Inch) Height, Inches : 11 Inch(Converted to: 0 ft 11 Inch, 27.94 cm) Clinical Height : 180.34 cm Weight Source : Bed scale Weight Entry Format : [place] Clinical Dosing Weight : 67.45 kg Weight, Pounds : 148.4 lb Body Surface Area (BSA) : 1.86 m2 Body Mass Index : 20.7 kg/m2 [place] Body Weight : 74 kg Poppy Hardin RN - 11/30/2018 22:05 EDT Infectious Disease History Infectious Disease History : Chicken pox/Shingles, Influenza, Measles, Mumps Fever/Chills Last 48 Hours : No Travel To Regions with Travel Advisories : No Travel Outside [place] Within Last 30 Days : No Contact With Traveler to Advisory Region : No Tuberculosis Symptoms : None Poppy Hardin RN - 11/30/2018 22:05 EDT Tetanus Immunization Status Previous Tetanus Immunizations : No qualifying data available. Tetanus Immunization : Greater than 5 years Poppy Hardin RN - 11/30/2018 22:05 EDT Influenza Vaccine Asmt, Adult Previous Vaccines from Immunization Schedule : No qualifying data available. Influenza Immunization, Current Season : Yes Poppy Hardin RN - 11/30/2018 22:05 EDT Pneumococcal Vaccine Previous Vaccines from Immunization Schedule : No qualifying data available. Pneumonia Immunization Received : Yes Poppy Hardin RN - 11/30/2018 22:05 EDT Order Details Order Detail : N/A Poppy Hardin RN - 11/30/2018 22:05 EDT Nutrition History Eating Poorly Due to Decreased Appetite : Yes Unplanned Weight Loss in Past 3-6 Months : No Malnutrition Screening Tool Total(mal) : 1 Malnutrition Screening Tool Risk Level : Patient not at risk Poppy Hardin RN - 11/30/2018 22:05 EDT Psychosocial History Do You Have a History of the Following? : Patient denies history Currently in Unsafe Situation : No Tried to Harm Yourself in the Past? : No Thoughts of Harming/Killing Yourself : No Poppy Hardin RN - 11/30/2018 22:05 EDT Sleep Apnea Risk Assmt Hx of [...] Sleep Apnea Risk Level Score : 4 Poppy Hardin RN - 11/30/2018 22:05 EDT Spiritual/Cultural Needs Any Spiritual/Cultural Needs or Requests : No Poppy Hardin RN - 11/30/2018 22:05 EDT Valuables and Belongings Valuables and Belongings : Clothing Clothing : Common streetwear Clothing Disposition : Bedside Poppy Hardin RN - 11/30/2018 22:05 EDT Electronically signed by Victor Manuel Alcala Conversion Desktop Support Manager Cerner at 09/13/2022 4:39 PM CDT documented in this encounter Plan of Treatment Not on file documented as of this encounter Visit Diagnoses Not on filedocumented in this encounter
--- OUTSIDE RECORDS SUMMARY | 2024-11-24 18:05 | XMS_ITS | Encounter Summary ---
Author Organization [employer] ([place], [place], [place], [place]) Address [address] [place] [address] Care Team Providers Care Engagement Executive Name Role Phone Unavailable Primary Care Provider Unavailabl e Encounter Details Date Type Department Care Team (Late st Contact Info) Description 12/01/[address] [facility] [place] [facility] [place] [address] ProviderBrianne MD [address] [place] [phone] Social History Tobacco Use Types Packs/Day Years Used Date Smoking Tobacco: Never Assessed Sex and Gender Information Value Date Recorded Sex Assigned at Male 11/21/2021 1:59 PM CDT Legal Sex Male 1:59 PM CDT Gender Identity Male 11/21/2021 1:59 PM CDT Sexual Orientation Not on file documented as of this encounter Miscellaneous Notes * [employer]ner Conversion Note - Brianne Kim MD - 12/01/2018 2:14 PM CDT Discharge Instructions Entered On: 12/01/2018 14:14 EDT Performed On: 12/01/2018 14:14 EDT by RIVAS COBURN MD-NEU DC Instructions HWD Driving After Discharge : Do not drive, Other: No driving or operating heavy machinery until released by a physician. RIVAS COBURN MD-NEU - 12/01/2018 14:14 EDT documented in this encounter Plan of Treatment Not on file documented as of this encounter Visit Diagnoses Not on filedocumented in this encounter
--- OUTSIDE RECORDS SUMMARY | 2024-11-24 18:05 | XMS_ITS | Encounter Summary ---
Author Organization [employer] ([place], [place], [place], [place]) Address [address] [place] [address] Care Team Providers Care Train Electronic Technician Name Role Phone Unavailable Primary Care Provider Unavailabl e Encounter Details Date Type Department Care Team (Late st Contact Info) Description 01/07/[address] [facility] [place] [facility] [place] [address] ProviderBrianne MD [address] [place] [phone] Social History Tobacco Use Types Packs/Day Years Used Date Smoking Tobacco: Never Assessed Sex and Gender Information Value Date Recorded Sex Assigned at Male 11/21/2021 1:59 PM CDT Legal Sex Male 1:59 PM CDT Gender Identity Male 11/21/2021 1:59 PM CDT Sexual Orientation Not on file documented as of this encounter Miscellaneous Notes * Alpesh Conversion Note - Brianne ProviderMD - 01/07/2019 7:10 AM CDT Event Note Entered On: 01/07/2019 7:11 EDT Performed On: 01/07/2019 7:10 EDT by Whit Lamb RN Event Note Event Date/Time : 01/07/2019 7:10 EDT Event Location : [facility] area Description of Event : Pt BP 208/96 HR 66, per Dr. Klaudia jimenez to proceed with surgery Whit Lamb RN - 01/07/2019 7:10 EDT documented in this encounter Plan of Treatment Not on file documented as of this encounter Visit Diagnoses Not on filedocumented in this encounter
--- OUTSIDE RECORDS SUMMARY | 2024-11-24 18:05 | XMS_ITS | Encounter Summary ---
Author Organization [employer] ([place], [place], [place], [place]) Address [address] [place] [address] Care Team Providers Care Decorative Engraver Name Role Phone Unavailable Primary Care Provider Unavailabl e Encounter Details Date Type Department Care Team (Late st Contact Info) Description 11/30/2018 Transcribed Document [facility] [place] [address] ProviderBrianne MD [address] [place] [id number] Social History Tobacco Use Types Packs/Day Years Used Date Smoking Tobacco: Never Assessed Sex and Gender Information Value Date Recorded Sex Assigned at Male 11/21/2021 1:59 PM CDT Legal Sex Male 1:59 PM CDT Gender Identity Male 11/21/2021 1:59 PM CDT Sexual Orientation Not on file documented as of this encounter Miscellaneous Notes * [employer] Conversion Note - Brianne Kim MD - 11/30/2018 8:28 AM CDT Patient Education Materials Follows: Carotid Angioplasty With Stent, Care After Refer [...] the catheter site. This usually fades within 1?2 weeks. ??? A small amount of blood or clear fluid coming from your surgical cut (incision). ??? Blood collecting underneath your skin (hematoma) around the catheter site. This may form a lump that you can see and feel. The lump may be sore and tender. This usually lasts for 1?2 weeks. Follow these instructions at home: Medicines ??? Take [id number] and prescription medicines only as told by [...] and water are not available, use hand station master. ? Change your dressing as told by [...] or 1? oz of hard liquor. ??? Do not [...] Document Reviewed: 02/05/2016 Else[employer] Interactive Patient Education ? 2019 [email or web address] documented in this encounter Plan of Treatment Not on file documented as of this encounter Visit Diagnoses Not on filedocumented in this encounter
--- OUTSIDE RECORDS SUMMARY | 2024-11-24 18:05 | XMS_ITS | Encounter Summary ---
Author Organization [facility] ([place], [place], [place], [place]) Address [address] [place] [address] Care Team Providers Care Cloth Desizing Range Tender Name Role Phone Unavailable Primary Care Provider Unavailabl e Encounter Details Date Type Department Care Team (Late st Contact Info) Description 01/07/2019 Transcribed Document [facility] Family Medicine [facility] [place] [address] ProviderBrianne MD [address], [place] [id number] Social History Tobacco Use Types Packs/Day Years [...] Kim MD - 01/07/2019 7:55 AM CDT [facility] Main OR IntraOp Summary Primary Physician: JULIO RUSHING MD-ORT Finalized Date/Time: 01/08/19 13:21:56 Pt. Name: NADER TOLENTINO /Sex: 1940 Male Med Rec #: [id number] Physician: JULIO RUSHING MD-ORT Financial #: [id number] Pt. Type: I Room/Bed: 638/1 Admit/Disch: 01/07/19 07:08:00 - Institution: [facility] IntraOp Case Attendance Entry 1 Entry 2 Entry 3 Case Attendee JULIO RUSHING WILSON, MATTHEW L, MD VON KUSTER, NICOLASA MD-ASHLEY ARREGUIN, IV TECHNICIAN Role Performed Surgeon/Proceduralist, Anesthesiologist of IV TECHNICIAN/Nurse Machinist Supervisor Outside First Record Time In 01/07/19 07:19:00 01/07/19 07:19:00 01/07/19 07:19:00 Time Out 01/07/19 09:14:00 01/07/19 09:14:00 01/07/19 09:14:00 Procedure Hip Total Anterior Hip Total Anterior Hip Total Anterior Approach(Right) Approach(Right) Approach(Right) Other Attendee Superficial Wound Closed By: Last Modified By: Lucie Madrigal, Lucie Cantu, Lucie Cantu, Rn 01/07/19 09:36:01 01/07/19 09:36:01 01/07/19 09:36:01 Entry 4 Entry 5 Entry 6 Case Attendee Lucie Madrigal, BARBER Lock CSA Lasslo, Jamie, Armored Cable Machine Operator Role Performed Spectrographer, Packing Machine Tender, First Scrub, First Time In 01/07/19 07:19:00 01/07/19 07:19:00 01/07/19 07:19:00 Time Out 01/07/19 09:14:00 01/07/19 09:14:00 01/07/19 09:14:00 Procedure Hip Total Anterior Hip Total Anterior Hip Total Anterior Approach(Right) Approach(Right) Approach(Right) Other Attendee Superficial Wound Closed By: Last Modified By: Lucie Madrigal, Lucie Cantu, Rn Lucie Madrigal, Rn 01/07/19 09:36:01 01/07/19 09:36:01 01/07/19 09:36:01 Entry 7 Entry 8 Entry 9 Case Attendee DARNELL COBIAN Jennifer, OTHER, ATTENDEE Juan Carlos Pref Card Builder Role Performed Jr. Java Developer Scrub, Second Vendor Time In 01/07/19 07:19:00 01/07/19 07:19:00 01/07/19 07:19:00 Time Out 01/07/19 09:14:00 01/07/19 09:14:00 01/07/19 09:14:00 Procedure Hip Total Anterior Hip Total Anterior Hip Total Anterior Approach(Right) Approach(Right) Approach(Right) Other Attendee KATHY ONESIMO- [facility] Superficial Wound Closed By: Polo Modified By: Lucie Madrigal, Lucie Cantu, Lucie Cantu Rn 01/07/19 09:36:01 01/07/19 09:36:01 01/07/19 09:36:01 Entry 10 Case Attendee OTHER, ATTENDEE #1 Role Performed Vendor Time In 01/07/19 07:19:00 Time Out 01/07/19 09:14:00 Procedure Hip Total Anterior Approach(Right) Other Attendee AMADOR- [facility] Superficial Wound Closed By: Polo Modified By: Lucie Madrigal Rn 01/07/19 09:36:01 [facility] IntraOp Case Attendance Audit 01/07/19 09:36:01 Litigation Specialist: [id number] Modifier: [id number] <+> Time Out 1 <*> Procedure Hip Total Anterior Approach(Right) 2 <+> Time Out 2 <*> Procedure Hip Total Anterior Approach(Right) 3 <+> Time Out 3 <*> Procedure Hip Total Anterior Approach(Right) 4 <+> Time Out 4 <*> Procedure Hip Total Anterior Approach(Right) 5 <+> Time Out 5 <*> Procedure Hip Total Anterior Approach(Right) 6 <+> Time Out 6 <*> Procedure Hip Total Anterior Approach(Right) 7 <+> Time Out 7 <*> Procedure Hip Total Anterior Approach(Right) 8 <+> Time Out 8 <*> Procedure Hip Total Anterior Approach(Right) 9 <+> Time Out 9 <*> Procedure Hip Total Anterior Approach(Right) 10 <+> Time Out 10 <*> Procedure Hip Total Anterior Approach(Right) 01/07/19 09:05:32 Litigation Specialist: [id number] Modifier: [id number] 1 <*> Procedure Hip Total Anterior Approach(Right) 2 <+> Time In 2 <*> Procedure Hip Total Anterior Approach(Right) 3 <+> Time In 3 <*> Procedure Hip Total Anterior Approach(Right) 4 <+> Time In 4 <*> Procedure Hip Total Anterior Approach(Right) 5 <+> Time In 5 <*> Procedure Hip Total Anterior Approach(Right) 6 <+> Time In 6 <*> Procedure Hip Total Anterior Approach(Right) 7 <+> Time In 7 <*> Procedure Hip Total Anterior Approach(Right) 8 <+> Time In 8 <*> Procedure Hip Total Anterior Approach(Right) 9 <+> Time In 9 <*> Procedure Hip Total Anterior Approach(Right) 10 <+> Time In 10 <*> Procedure Hip Total Anterior Approach(Right) [facility] IntraOp Case Times Entry 1 Patient In Room Time 01/07/19 07:19:00 Out Room Time 01/07/19 09:14:00 Anesthesia Start Time 01/07/19 07:19:00 Stop Time 01/07/19 09:14:00 Surgery / Procedure Times Start Time 01/07/19 07:55:00 Stop Time 01/07/19 09:05:00 Last Modified By: Lucie Madrigal Rn 01/07/19 09:14:50 [facility] IntraOp Case Times Audit 01/07/19 09:14:50 Litigation Specialist: [id number] Modifier: [id number] <+> 1 Out Room Time <+> 1 Stop Time 01/07/19 09:05:31 Litigation Specialist: [id number] Modifier: [id number] <+> 1 Stop Time [facility] IntraOp Cautery Entry 1 ESU Identification Cautery Type Monopolar ESU ID Number [id number] ID Type Hospital Number Cautery Settings Cut Setting 50 Coag Setting 50 ESU Grounding Pad Ground Pad Type Adult Grounding Pad Site Left thigh Grounding Pad Lucie Madrigal Rn Applied By Grounding Pad Site Intact, Warm, Dry Skin Condition Before Cautery Grounding Pad Site Unchanged Skin Condition After Cautery Last Modified By: Lucie Madrigal Rn 01/07/19 08:06:36 [facility] IntraOp Communication Entry 1 Entry 2 Communication To Family/Significant other Family/Significant other Comment START CLOSING Communication By Lucie Madrigal, Rn Lucie Madrigal, Rn Date and Time 01/07/19 07:56:00 01/07/19 08:52:00 Last Modified By: Lucie Madrigal Rn Bruner, Kristen D, Rn 01/07/19 08:06:48 01/07/19 08:52:32 [facility] IntraOp Communication Audit 01/07/19 08:52:32 Litigation Specialist: [id number] Modifier: [id number] <+> 2 Communication By <+> 2 Date and Time <+> 2 Communication To <+> 2 Comment [facility] IntraOp Counts Verification Entry 1 Procedure Hip Total Anterior Approach(Right) Count Info Count Type Sponge, Sharps, Miscellaneous Counts Verification Baseline/pre-procedure Sequence Count Results Not Applicable Counts Performed By Count Performed By Luis Marcos, Surgical (Scrub) Carbon Capture Power Plant Engineer Count Performed By Lucie Madrigal Rn (RN) Last Modified By: Lucie Madrigal Rn 01/07/19 08:06:57 [facility] IntraOp Counts Final Entry 1 Procedure Hip Total Anterior Approach(Right) Final Count Info Count Type Sponge, Sharps, Miscellaneous Counts Verification Skin Closure/end of Sequence procedure Count Results Correct, surgeon notified Counts Performed By Count Performed By Luis Marcos, Surgical (Scrub) Carbon Capture Power Plant Engineer Count Performed By Lucie Madrigal Rn (RN) Last Modified By: Lucie Madrigal Rn 01/07/19 08:52:23 [facility] IntraOp Counts Final Audit 01/07/19 08:52:23 Litigation Specialist: [id number] Modifier: [id number] 1 <*> Procedure Hip Total Anterior Approach(Right) 1 <+> Count Performed By (Scrub) 1 <+> Count Performed By (RN) [facility] IntraOp Cultures and Spec Summary Entry 1 Cultrures and Specimens Specimen Ordered: Yes Test(s) Routine/Path-Lab Requested/Final Disposition Last Modified By: Lucie Madrigal Rn 01/07/19 08:08:06 General Comments: A. RIGHT FEMORAL HEAD [facility] IntraOp Departure from OR Entry 1 Integumentary Assessment Integumentary WDL with patient Assessment WDL specific variances Patient's Normal NEW SURGICAL INCISION Integumentary Variance(s) Transfer/Handoff Transfer to PACU Phase I Handoff Method Phone call Post-op Transport Stretcher/Yang Via Patient Transport NICOLASA LEAL Accompanied by KRISTI ARREGUIN Bruner, Kristen D, Rn Last Modified By: uLcie Madrigal Rn 01/07/19 08:08:31 [facility] IntraOp Dressing and Packing Entry 1 Type Dressing Location OPERATIVE SITE Wound Dressing Item Occlusive dressing, Skin Closure Glue Supplemental Cold pack Applications Applied By BARBER RAMIREZ CSA Other Comments [employer] COVADERM Last Modified By: Lucie Madrigal Rn 01/07/19 08:08:42 [facility] IntraOp Fire Risk Assessment Entry 1 Fire Info Surgical Site or 0- No Incision Above the Xyphoid Open O2 Source 0- No (Mask or Cannula) Available Ignition 1- Yes (ESU, Laser, Light Source) Fire Risk 1 Assessment Score Fire Score Fire Risk Yes Assessment Complete Fire Risk Lucie Madrigal, Blueprint Tracer Verified By Fire Risk 01/07/19 07:19:00 Assessment Verified Date/Time Fire Risk Standard Fire Yes Safety Precautions Followed Last Modified By: Lucie Madrigal Rn 01/07/19 08:08:47 [facility] IntraOp General Case Worship Pastor 1 Case Information OR OR 04 [facility] Case Level 1 Room Verified Yes Wound Class I - Clean Specialty SN Orthopedic Anesthesia Type General ASA Class 3 Diagnosis Preop Diagnosis UNILATERAL PRIMARY OSTEOARTHRITIS: RIGHT HIP Postop Same As Preop No Postop Diagnosis SEE MD POSTOP NOTE Last Modified By: Lucie Madrigal Rn 01/07/19 08:09:19 [facility] IntraOp General Case Data Audit 01/07/19 08:09:19 Litigation Specialist: [id number] Modifier: [id number] <+> 1 Postop Same As Preop <+> 1 Preop Diagnosis <+> 1 Postop Diagnosis [facility] IntraOp Implant Log Entry 1 Entry 2 Entry 3 Type Implant (Synthetic) Implant (Synthetic) Implant (Synthetic) Implant Log Implant Type Hardware Hardware Hardware Tissue Implant Type Implant INSRT TRIDENT X3 0DEG TRIDENT II TRI SCR LOW PROFILE Identification [id number] [facility] [id number] Description Implant Quantity 1 1 1 Implant Site OPSITE: RIGHT HIP OPSITE: RIGHT HIP OPSITE: RIGHT HIP Implant Identification Model Number Implant Identification Serial Number Implant [id number] Identification Lot Number Implant [place]:Koko Van Buren Ortho Cap [place]:Koko Identification Orthopaedics Orthopaedics Custom Shoe Designer And Maker Name: Implant [id number] Identification Catalog Number Implant Size 36MM 52MM 6.5X25MM Implant Has an Yes Yes Yes Expiration Date Implant Expiration 06/01/24 06/10/24 04/10/24 Date Wasted Radioactive Material Time Implanted Tissue Implant Continue for Tissue Implant Documentation Tissue Identification Number Graft Prep Per Custom Shoe Designer And Maker Instructions: Tissue Preparation Method: Reconstitution Solution: Reconstitution Solution Lot Number Reconstitution Solution Expiration Date: Thawing Solution Thawing Solution Lot Number Thawing Solution Expiration Date Preparation Materials, Other Preparation Materials, Other Lot Number Preparation Materials, Other Expiration Date Tissue Prepared/Processed By Custom Shoe Designer And Maker Paperwork Completed Implant Type Comment Last Modified By: Lucie Madrigal Rn Bruner, Kristen D, Lucie Cantu, Luis 01/07/19 08:32:30 01/07/19 08:32:30 01/07/19 08:32:30 Entry 4 Entry 5 Entry 6 Type Implant (Synthetic) Implant (Synthetic) Implant (Synthetic) Implant Log Implant Type Hardware Hardware Hardware Tissue Implant Type Implant SCR LOW PROFILE HIP STEM ACCOLADE II HEAD FEM BIOLOX V40 Identification [id number] Description Implant Quantity 1 1 1 Implant Site OPSITE: RIGHT HIP OPSITE: RIGHT HIP OPSITE: RIGHT HIP Implant Identification Model Number Implant Identification Serial Number Implant [id number] Identification Lot Number Implant [place]:Koko Van Buren:Koko [place]ren:[place]ren Identification Orthopaedics Orthopaedics Orthopaedics Custom Shoe Designer And Maker Name: Implant [id number] Identification Catalog Number Implant Size 6.5X20MM 9 36MM Implant Has an Yes Yes Yes Expiration Date Implant Expiration 08/07/23 03/12/23 09/08/23 Date Wasted Radioactive Material Time Implanted Tissue Implant Continue for Tissue Implant Documentation Tissue Identification Number Graft Prep Per Custom Shoe Designer And Maker Instructions: Tissue Preparation Method: Reconstitution Solution: Reconstitution Solution Lot Number Reconstitution Solution Expiration Date: Thawing Solution Thawing Solution Lot Number Thawing Solution Expiration Date Preparation Materials, Other Preparation Materials, Other Lot Number Preparation Materials, Other Expiration Date Tissue Prepared/Processed By Custom Shoe Designer And Maker Paperwork Completed Implant Type Comment Last Modified By: Lucie Madrigal, Lucie Cantu, Lucie Cantu Rn 01/07/19 08:32:30 01/07/19 08:52:11 01/07/19 08:52:11 [facility] IntraOp Implant Log Audit 01/07/19 08:52:11 Litigation Specialist: [id number] Modifier: [id number] <+> 5 Implant Identification Description <+> 5 Implant Identification Lot Number <+> 5 Implant Identification Custom Shoe Designer And Maker Name: <+> 5 Implant Size <+> 5 Implant Expiration Date <+> 5 Implant Site <+> 5 Implant Quantity <+> 5 Implant Identification Catalog Number <+> 5 Implant Type <+> 5 Implant Has an Expiration Date <+> 5 Type <+> 6 Implant Identification Description <+> 6 Implant Identification Lot Number <+> 6 Implant Identification Custom Shoe Designer And Maker Name: <+> 6 Implant Size <+> 6 Implant Expiration Date <+> 6 Implant Site <+> 6 Implant Quantity <+> 6 Implant Identification Catalog Number <+> 6 Implant Type <+> 6 Implant Has an Expiration Date <+> 6 Type [facility] IntraOp Intraoperative Assessment Entry 1 Handoff Method Bedside/Face to face, Online nursing summary Valid History / Yes Physical in Chart Preoperative Yes Checklist Reviewed/Evaluated Allergies Reviewed Yes Patient is Latex No Sensitive Isolation Not applicable Precautions Noted Level of WDL Consciousness (WDL = Alert, Oriented to Person, Place, and Time) Skin Assessment Yes Verified Present Upon IVs Arrival to OR Last Modified By: Lucie Madrigal Rn 01/07/19 08:09:27 [facility] IntraOp Intraoperative Equipment Entry 1 Type Equipment Equipment Equipment Vinicius Suction System ID Number [id number] Setting HIGH Intraop Monitoring Electrocardiogram Three lead placement (ECG) Electrode Placement Blood Pressure Non-Invasive BP Device Source Blood Pressure Arm, right upper Location Pulse Oximeter Hand, left Probe Site Antiembolic Devices Antiembolic Devices Sequential compression device, knee high, Antiembolic hose, thigh high Antiembolic Device Bilateral Location Scopes Photo/Video Documentation Last Modified By: Lucie Madrigal Rn 01/07/19 08:09:46 [facility] IntraOp Medication Admin Entry 1 Entry 2 Medication/Irrigant Bacitracin 50,00units vancomycin 1Gm vial - powder vial [id number] Combo Med List 1 - Combo Med Time Administered Route of ADDED TO IRRIGATION TOPICAL Administration Dose Dose 62034 1 Unit of Measure units gram Volume Administered By JULIO RUSHING, JULIO RUSHING MD-ORT MD-ORT Procedure Irrigation Irrigant Volume In Irrigant Volume Out Last Modified By: Lucie Madrigal Rn Bruner, Kristen D, Rn 01/07/19 08:10:01 01/07/19 08:10:01 [facility] IntraOp Patient Positioning Entry 1 Procedure Hip Total Anterior Approach(Right) Body Position Supine Left Arm Position Secured on padded arm board Right Arm Position Secured on padded arm board Left Leg Position Secured in Leg Giron Right Leg Position Secured in Leg Giron Feet Uncrossed Yes Pressure Points Yes Checked Positioning Devices Arm Board, Head Rest, Pad, Arm, Safety Strap, Arm(s), Stirrups/Leg Giron, Boot, Pad, Elbow Device Position hana table Positioned By Lucie Madrigal, Luis, BARBER RAMIREZ CSA, KARTHIKEYAN, THARUN, MD-ORT, AN HINTON, NICOLASA ARREGUIN, KRISTI Position Verified Positioning Yes Verified by Anesthesia Positioning Yes Verified by Surgeon Last Modified By: Lucie Madrigal Rn 01/07/19 08:10:10 [facility] IntraOp Sign In Entry 1 Patient, Site, Yes Procedure Identified Surgical Consent Yes Confirmed Relevant Surgical Yes Documents Available Surgical Site Yes Marked by person performing procedure Anesthesia Machine Yes Check Completed Medication Checks Yes Completed Allergies Yes Airway Difficult Yes Airway/Aspiration Risk Difficult Yes Airway/Aspiration Intervention Equipment Available Blood Loss Risk Yes Blood Loss Yes Intervention Equipment Prepared and Ready Blood Identifiers Not applicable Verified Per Policy Hypothermia Risk Yes Warming Measures Yes Taken Last Modified By: Lucie Madrigal Rn 01/07/19 08:10:15 [facility] IntraOp Sign Out Entry 1 RN Confirmation Surgical Yes Procedure(s) Identified Instrument, Sponge Yes and Sharps Counts Correct/Documented Equipment Problems N/A Documented Specimen Labeled Yes Correctly Urinary Catheter N/A Documented in IView Art Patient Yes Recovery Concerns Reviewed with Anesthesia Provider, Surgeon and RN Art Patient Yes Management Concerns Reviewed with Anesthesia Provider, Surgeon and RN Safety Checklist Yes Elements Complete? RN Sign Out Lucie Madrigal Rn Signature RN Sign Out 01/07/19 09:05:00 Signature Date/Time Plan of Care Outcome - Fire Risk OUTCOME STATEMENT: Goal met Patient is free from injury related to surgical fire Plan of Care Outcome - Pt Positioning OUTCOME STATEMENT: Goal met Absence of signs and symptoms of positioning injury. Plan of Care Outcome - Skin Prep OUTCOME STATEMENT: Goal met Intraoperative care is consistent with measures to prevent infection Plan of Care Outcome - Xray/Images OUTCOME STATEMENT: Goal met Absence of observable signs or symptoms of radiation injury Plan of Care Outcome - Counts OUTCOME STATEMENT: Goal met Absence of signs and symptoms of injury related to extraneous objects Last Modified By: Lucie Madrigal Rn 01/07/19 09:05:41 [facility] IntraOp Sign Out Audit 01/07/19 09:05:41 Litigation Specialist: [id number] Modifier: [id number] <+> 1 RN Sign Out Signature Date/Time [facility] IntraOp Skin Prep Entry 1 Procedure Hip Total Anterior Approach(Right) Prescribed Yes Pre-Surgical Prep Completed Prep Area OPERATIVE HIP TO KNEE Intraop Prep Integumentary WDL Assessment WDL Prep Agents Alcohol, Chloraprep, DuraPrep, Chlorhexadine gluconate Prep by Lucie Madrgial Rn Hair Removal Methods No hair removal performed Last Modified By: Lucie Madrigal Rn 01/07/19 08:10:26 [facility] IntraOp Surgical Procedures Entry 1 Procedure Hip Total Anterior Approach Modifiers Right Additional (RIGHT DIRECT ANTERIOR Procedure TOTAL HIPARTHROPLASTY) Description Primary Procedure Yes Primary Surgeon JULIO RUSHING MD-ORT Start 01/07/19 07:55:00 Stop 01/07/19 09:05:00 Anesthesia Type General Specialty SN Orthopedic Wound Class I - Clean Last Modified By: Lucie Madrigal Rn 01/07/19 09:05:36 General Comments: ANCEF 2 GRAMS ADMINISTERED PRIOR TO SURGERY START PER ANESTHESIA PROVIDER @ 0725 TRANEXAMIC ACID 2 GRAMS AND ROPIVICAINE/EPI/NACL/CLONIDINE MIX PASSED OFF TO STERILE FIELD PER Alla MADRIGAL RN [facility] IntraOp Surgical Procedures Audit 01/07/19 09:05:36 Litigation Specialist: [id number] Modifier: [id number] 1 <*> Procedure Hip Total Anterior Approach 1 <*> Procedure Hip Total Anterior Approach 1 <*> Procedure Hip Total Anterior Approach 1 <*> Stop 1 <*> Stop [facility] IntraOp Temp Regulation Devices Entry 1 Temp Regulation Temperature Forced Air Warming Regulation Device device, Warm blankets Temperature Regulation Device Serial/Unit Number Temperature Upper body Regulation Site Temperature Device 43 DEGREES CELCIUS Setting Temperature VON NICOLASA HINTON Regulation Device KRISTI ARREGUIN Applied by Last Modified By: Lucie Madrigal Rn 01/07/19 08:11:19 [facility] IntraOP Time Out Entry 1 Procedure to be Hip Total Anterior Performed Approach(Right) Time Out Time Out Pause Time 01/07/19 07:54:00 All activity Yes suspended (unless life threatening emergency) Team Verbally Correct patient Confirms Information identity, Correct side and site are marked, Consent form is present and accurate, Agreement on the procedure to be done, Correct patient position, Relevant images/results properly labeled/appropriately displayed, Confirm antibiotics have been administered, Confirm the skin prep has dried, Confirm prosthesis/implant/devic e is present, Performed in location of procedure after prepped/draped Antibiotic Yes Prophylaxis Administered Or In Progress Within the Last 60 Minutes Beta Marko Yes Administered Venous Yes Thromboembolism Prophylaxis Required Anticipated Critical Events Surgeon None expected Anesthesia Provider None expected Nursing Assures Sterility of instruments, Implant Availability Essential Imaging Yes Labeled and Displayed Last Modified By: Lucie Madrigal Rn 01/07/19 08:11:45 [facility] IntraOp X-Ray and Images Entry 1 X-Ray/Imaging Type Fluoroscopy Fluoroscopy Type C-Arm Site OPERATIVE HIP Underground Bolting Machine Operator Name DARNELL COBIAN Rashid Protective Devices No Used Last Modified By: Lucie Madrigal Rn 01/07/19 08:12:29 Case Comments <None> Finalized By: GOLDIE ROJAS Document Signatures Signed By: Lucie Madrigal Rn 01/07/19 09:36 GOLDIE ROJAS 01/07/19 14:52 ROJASGOLDIE MILES 01/08/19 13:21 Unfinalized History Date/Time Username Reason for Unfinalizing Freetext Reason for Unfinalizing 01/07/19 14:51 [email or web address] Correct Billing 01/08/19 13:19 WATTSDR Correct Billing Electronically signed by Cari [facility] Conversion Carbon Paper Coating Supervisor Cerner at 09/14/2022 12:16 PM CDT documented in this encounter Plan of Treatment Not on file documented as of this encounter Visit Diagnoses Not on filedocumented in this encounter
--- OUTSIDE RECORDS SUMMARY | 2024-11-24 18:05 | XMS_ITS | Encounter Summary ---
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 Name Role Phone Unavailable Primary Care Provider Unavailabl e Encounter Details Date Type Department Care Team (Late st Contact Info) Description 01/07/2019 Transcribed Document [facility] [place] [facility] [place] [address] ProviderBrianne MD [facility] [place] [id number] Social History Tobacco Use Types Packs/Day Years Used Date Smoking Tobacco: Never Assessed Sex and Gender Information Value Date Recorded Sex Assigned at Male 11/21/2021 1:59 PM CDT Legal Sex Male 1:59 PM CDT Gender Identity Male 11/21/2021 1:59 PM CDT Sexual Orientation Not on file documented as of this encounter Miscellaneous Notes * Cerner Conversion Note - Brianne ProviderMD - 01/07/2019 2:52 PM CDT Treatment Intervention, PT Entered On: 01/08/2019 12:39 EDT Performed On: 01/08/2019 12:36 EDT by DAY RAJAN, PT General Information, PT Visit Type, PT : Treatment Note Patient Orders : Order Date Order Ordering 01/07/2019 09:57 PT Evaluation and Treatment Ordered By: JULIO RUSHING MD-ORT 01/07/2019 09:57 PT Treatment Instructions Ordered By: JULIO RUSHING MD-ORT 01/07/2019 09:57 PT Treatment Instructions Ordered By: JULIO RUSHING MD-ORT 01/07/2019 09:57 PT Treatment Instructions Ordered By: JULIO RUSHING MD-ORT 01/07/2019 09:57 PT Treatment Instructions Ordered By: JULIO RUSHING MD-OREli 01/07/2019 09:57 PT Treatment Instructions Ordered By: JULIO RUSHING MD-OREli 01/07/2019 14:52 PT Additional Treatment Ordered By: DAY RAJAN PT Active Diagnoses : 01/08/2019 12:00 Presence of unspecified artificial hip joint Therapy Diagnosis, PT : Aftercare following R anterior GARFIELD Admission Date : 01/07/2019 07:08 Assisted by, PT : Occupational Therapist Personal Devices : Personal Devices No Devices Recorded Assistive Devices : Assistive Devices No Devices Recorded DAY RAJAN PT - 01/08/2019 12:36 EDT General Status Patient Received Status : Up in chair Treatment Start Time : 01/08/2019 9:23 EDT Patient Left Status : Up in chair, RN/PCT informed, Family/Visitors at bedside, Communication board completed, All needs met and within reach, Other: ice RN/PCT Informed Comment : RN, matthais and pt consent Treatment End Time : 01/08/2019 9:53 EDT Treatment Time : 30 Minute(s) DAY RAJAN PT - 01/08/2019 12:36 EDT Edu Topics Physical Therapy Education Grid Bed Mobility Training : Returns demonstration Gait Training : Returns demonstration Home Program/Exercises : Verbalizes understanding Role of Physical Therapy : Verbalizes understanding Safety : Verbalizes understanding Therapeutic Exercises : Returns demonstration Transfer Training : Returns demonstration Use of Assistive Device : Returns demonstration DAY RAJAN PT - 01/08/2019 12:36 EDT Indication Assesessment, PT Physical Therapy Indicated : DAY Chou PT - 01/08/2019 12:36 EDT Plan of Care, PT PT Tx Plan/Goals Established w Patient : DAY Chou PT - 01/08/2019 12:36 EDT Physician Obstetrician Goals Mobility/Bed Mobility LTG PT Grid Goal #1 Goal #2 Activity : Sit to stand Supine to sit Assist : Supervision or set-up Independent, modified Equipment : Walker, front wheel Date to Meet : 01/21/2019 EDT 01/21/2019 EDT Goal Status : Goal met Goal met Date Met : 01/08/2019 EDT 01/08/2019 EDT DAY RAJAN PT - 01/08/2019 12:36 EDT DAY RAJAN PT - 01/08/2019 12:36 EDT Ambulation LTG Grid Goal #1 Device : Walker, front wheel Distance : 150ft Assist : Supervision or set-up Date to Meet : 01/21/2019 EDT Goal Status : Goal met Date Met : 01/08/2019 EDT DAY RAJAN PT - 01/08/2019 12:36 EDT Treatment Note Subjective Comment : Pt agreeable to PT treatment, denies pain at rest. Patient's Response to Treatment : Excellent tolerance to gait and therex, no acute complaints. 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 Plan for Treatment : Discontinue DAY RAJAN PT - 01/08/2019 12:36 EDT Pain Assessment Pain Scaled Used : 0-10 Pain scale Pain Score Pre-Intervention : 0 Pain Score Post-Intervention. : 0 DAY RAJAN PT - 01/08/2019 12:36 EDT Image 1 - Images currently included in the form version of this document have not been included in the text rendition version of the form. [facility] Charges PT Therap. Exercise 15 min : 1 Gait Training Each 15 Min : 1 DAY RAJAN PT - 01/08/2019 12:36 EDT documented in this encounter Plan of Treatment Not on file documented as of this encounter Visit Diagnoses Not on filedocumented in this encounter
--- OUTSIDE RECORDS SUMMARY | 2024-11-24 18:05 | XMS_ITS | Encounter Summary ---
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 Name Role Phone Unavailable Primary Care Provider Unavailabl e Encounter Details Date Type Department Care Team (Late st Contact Info) Description 01/08/2019 Transcribed Document [facility] Family Medicine [address] [place] [address] ProviderBrianne MD [address] [place] [address] Social History Tobacco Use Types [...] Note - Brianne Kim MD - 01/08/2019 3:56 PM CDT [facility] [place] [address] NADER TOLENTINO :1940 Visit Time:01/07/2019 Your Visit Summary Your Care Team Admitting Physician - JULIO MCCULLOUGH MD-ORT Attending Physician - JULIO MCCULLOUGH MD-ORT Primary Care Physician - SIMON AG MD-RICHARD Referring Physician - JULIO MCCULLOUGH MD-ASHLEY Your Diagnosis History of hip replacement, total Unilateral primary osteoarthritis, right hip, Unilateral primary osteoarthritis, right hip These Are Your Goals Walk around big [employer] and up and down stairs. Discharge Vitals Temperature 36.9 ??C Heart Rate (Monitored) 63 Respiratory Rate 17 Blood Pressure 115/41 What to do next Instructions From Your Care Team Diet after Discharge: Resume usual diet as tolerated Activity after Discharge: As tolerated, nothing strenuous Weight Bearing: Full weight bearing Driving after Discharge: Do not drive until 24 hours after no longer taking pain medications Showering/Bathing: May shower in 3 days, No tub bathing, soaking or swimming Notify Provider of: fever greater than 100.1, foul drainage or redness at incision site Wound/Incision Care after Discharge: Keep operative site/wound site clean and dry, leave dressing in place for 7-10 days, remove, leave open to air Medical Equipment for Home Use: [employer]--[phone] Home Health Services: [facility]--[phone] Discharge Follow Up Instructions: Follow-up Dr. Mccullough 3 wks ([phone]) Follow Up Instructions: Continue NADIA hose for 6 weeks Follow Up Instructions: Leave Aquacel dressing in place x 7-10d, then open to air. Follow-Up Appointments Follow Up with JA THAKUR PA-ORT When 01/28/2019 01:45 PM EDT Comments JAKY Hussein Where: [address] [place], [place] [address], [place] [address]- Medications What How Much When Instructions Next Dose acetaminophen-oxyCODONE (Percocet 5/ 325 oral tablet) 1 Tablet(s) Oral Every 4 Hours as needed for Pain (Severe 7-10) not to exceed 6 tablets/ day Printed Prescription docusate (Colace 100 mg oral capsule) 1 Capsule(s) Oral Two Times A Day as needed for for constipation Duration: 30 Day(s) Printed Prescription ferrous gluconate (ferrous gluconate 325 mg (36 mg elemental iron) oral tablet) 1 Tablet(s) Oral Every Day Printed Prescription aspirin (aspirin 81 mg oral delayed release tablet) 81 Milligram(s) Oral Every Day Printed Prescription atorvastatin 20 Milligram(s) Oral At Bedtime cholecalciferol (Vitamin D3) 4,000 Unit(s) Every Day clopidogrel (clopidogrel 75 mg oral tablet) 1 Tablet(s) Oral At Bedtime cyanocobalamin (Vitamin B12 1000 mcg oral tablet) 2 Tablet(s) Oral Every Day glimepiride (glimepiride 2 mg oral tablet) 2 Tablet(s) Oral With Breakfast levothyroxine (levothyroxine 88 mcg (0.088 mg) oral tablet) 1 Tablet(s) Oral Every Day lisinopril 5 Milligram(s) Oral Two Times A Day metoprolol (metoprolol tartrate) 25 Milligram(s) Oral Two Times A Day multivitamin (Vitamin B Complex oral capsule) 1 Capsule(s) Oral Every Day omega-3 polyunsaturated fatty acids (Triple Strength Red Krill Oil) 350 Milligram(s) Oral Every Day omeprazole (omeprazole 40 mg [...] This Visit No Immunizations Found Education Materials Discharge Instructions for Anterior Total Hip Replacement Your Hip Incision: No swimming, soaking or bathing in a tub until cleared by the surgeon. If you have an Aquacel (light brown) dressing: Keep your dressing in place for 7-10 days. This type of dressing is water resistant. Please check the edges of the dressing, if they are intact, you may shower until the dressing is removed. Either the home health Physical Therapist or Nurse will remove the dressing after 7- 10 days, or your surgeon will remove it at your follow-up appointment. Then your incision may be open to air. Ideally, sponge bathe from the time the dressing is removed until your follow-up appointment. If you have a dry, white dressing: Change daily as needed. Wash your hands before and after changing the dressing. Activity: ??? You may put weight on your leg when you walk, unless your surgeon tells you not differently. Use your walker until the therapist or surgeon say you do not need it anymore. Continue your exercises from physical therapy. ??? Stay active, getting up every 1-2 hours, walk short distances, and increase how far you walk a little each week. No driving until cleared by your surgeon. ??? If your surgeon has ordered support hose, continue to wear them for 6 weeks in order to prevent blood clots. Remove them 1-2 times per day for about 30 minutes-1 hour. Check your skin for red or open areas under stockings. Thigh-high support hose can be bought online and at many pharmacies, be sure that compression is 15-20mmHg. ??? For swelling, prop up your leg above your heart. Apply cold therapy, 30 minutes on 30 minutes off with cloth or clothing between cold wrap and skin. General Instructions: ??? Increase fiber and protein intake. Drink 8-10 glasses of water a day and take stool softeners while you are on pain medication, since they cause constipation. If you do not have a bowel movement in 3-4 days after your surgery, try an over the counter laxative, such as milk of magnesia, miralax, dulcolax tablet or suppository, or fleets enema. If you do not have success after this, contact your home health nurse or surgeon office. ??? Continue using your incentive spirometer to keep fever and lung infection away. Aim for 10 breaths every hour while you are awake. ??? Take pain medicine as needed, especially before therapy. ??? Let your doctors and dentist know you have a prosthetic hip. They may need to give you an antibiotic before a procedure. Call Your Surgeon: Infection: Your hip has increased swelling that does not get better with time, propping up your leg and with rest. Your incision has a foul smell or your incision begins to open. Your incision gets red, is warm or has increased drainage after 2 days. You have a fever over 101 degrees for more than 24 hours. A Blood Clot: You have increased swelling, redness, warmth or pain in your calf. A Fall: ??? You fall down, but don???t have an obvious injury. Call 911: Sudden shortness of breath and/or chest pain You fall down and cannot get up Stroke signs and symptoms: Facial droop, uneven smile, arm numbness, arm weakness, slurred speech, difficulty speaking or understanding Last July 2016 CALL FIRST! Unless you are experiencing life-threatening issues, call your surgeon???s office or nurse navigator first, before going to the Emergency Department. Call your surgeon or nurse navigator if: ??? Your incision has increased swelling that does not get better with time, rest, and propping up your leg ??? Your incision has a foul smell or begins to open ??? You have a large amount of bleeding from incision ??? Your incision gets red, warm or increased drainage after 2 days ??? You have a fever over 101 degrees for more than 24 hours ??? You have increased swelling, redness, warmth or pain in your calf ??? You fall, but don???t have an obvious injury ??? You have questions or cause for concern regarding your total joint replacement Call 911 if: ??? You have sudden chest pain or shortness of breath ??? You fall and cannot get up ??? Life-threatening signs or symptoms ??? Stroke signs and symptoms: Facial droop, uneven smile, arm numbness, arm weakness, slurred speech, difficulty speaking or understanding If you are a patient of Dr. Mccullough or Dr. Shields, call [phone] If you are a patient of Dr. Alfonso, call [phone] Nurse Navigator: Ariana Mccallum Office: [phone]; ; available during regular business hours ferrous gluconate (JOHN us GLOO danny valero) Bob Benjamin What is the most important information I should know about ferrous gluconate? You should not use this medicine if you have hemochromatosis, hemosiderosis, or hemolytic anemia. What is ferrous gluconate? Ferrous gluconate is a type of iron. You normally get iron from the foods you eat. In your body, iron becomes a part of your hemoglobin (HEEM o aaron bin) and myoglobin (MY o aaron bin). Hemoglobin carries oxygen through your blood to tissues and organs. Myoglobin helps your muscle cells store oxygen. Ferrous gluconate is used to treat or prevent iron deficiency anemia (a lack of red blood cells caused by having too little iron in the body). Ferrous gluconate may also be used for purposes not listed in this medication guide. What should I discuss with my healthcare provider before taking ferrous gluconate? You should not use ferrous gluconate if you are allergic to it, or if you have: ?? iron overload disorder (hemochromatosis, hemosiderosis); or ?? hemolytic anemia (caused by the breakdown of red blood cells). To make sure ferrous gluconate is safe for you, tell your doctor if you have ever had: ?? ulcerative colitis; ?? stomach ulcers or similar stomach problems; ?? thalassemia (a genetic disorder of red blood cells); or ?? if you receive regular blood transfusions. Ask a doctor before using this medicine if you are or breast-feeding. Your dose needs may be different during or while you are nursing. Ferrous gluconate is not approved for use by anyone younger than 18 years old. How should I take ferrous gluconate? Use this medication exactly as directed on the label, or as prescribed by your doctor. Do not use it in larger amounts or for longer than recommended. Take ferrous gluconate on an empty stomach, at least 1 hour before or 2 hours after a meal. Ferrous gluconate may be taken with food if it upsets your stomach. Take this medicine with a full glass of water or juice. Measure liquid medicine with the dosing syringe provided, or with a special dose-measuring spoon or medicine cup. If you do not have a dose-measuring device, ask your pharmacist for one. Do not crush, chew, or break an extended-release tablet. Swallow the pill whole. Ferrous gluconate can stain your teeth, but this effect is temporary. To prevent tooth staining, mix the liquid form of ferrous gluconate with water or fruit juice (not with milk) and drink the mixture through a straw. You may also clean your teeth with baking soda once per week to treat any tooth staining. Ferrous gluconate may be only part of a complete program of treatment that also includes a special diet. Follow the diet plan created for you by your doctor or nutrition counselor. Get familiar with the list of foods you should eat to make sure you get enough iron in your diet. Store at room temperature, away from moisture and heat. What happens if I miss a dose? Take the missed dose as soon as you remember. Skip the missed dose if it is almost time for your next scheduled dose. Do not take extra medicine to make up the missed dose. What happens if I overdose? Seek emergency medical attention or call the Poison Help line at if you think you have used too much of this medicine, or if a child has accidentally swallowed it. An overdose of ferrous gluconate can be fatal to a child. Overdose symptoms may include drowsiness, severe nausea or stomach pain, vomiting, bloody diarrhea, coughing up blood or vomit that looks like coffee grounds, shallow breathing, weak and rapid pulse, cold or clammy skin, blue lips, and seizure (convulsions). What should I avoid while taking ferrous gluconate? Ask your doctor before using any vitamin or mineral supplement, or an antacid. Use only the type of antacid or supplements that your doctor recommends. Some minerals or antacids can make it harder for your body to absorb ferrous gluconate. Avoid taking antacids or antibiotics within 2 hours before or 2 hours after taking ferrous gluconate. This is especially important if you take: ?? ciprofloxacin, levofloxacin, lomefloxacin, norfloxacin, ofloxacin; or ?? demeclocycline, doxycycline, minocycline, or tetracycline. Certain foods can also make it harder for your body to absorb ferrous gluconate. Avoid taking this medicine within 1 hour before or 2 hours after eating fish, meat, liver, and whole grain or 'fortified' breads or cereals. What are the possible side effects of ferrous gluconate? Get emergency medical help if you have signs of an allergic reaction: hives, blistering or peeling skin; fever; difficulty breathing; swelling of your face, lips, tongue, or throat. Call your doctor at once if you have: ?? bright red blood in your stools; ?? black or tarry stools; ?? a fever; ?? stomach pain; ?? coughing up blood or vomit that looks like coffee grounds; or ?? pain in your chest or throat when swallowing a ferrous gluconate tablet. Common side effects may include: ?? constipation, diarrhea; ?? nausea, vomiting, stomach pain; ?? loss of appetite; ?? green-colored stools; or ?? temporary staining of the teeth. This is not a complete list of side effects and others may occur. Call your doctor for medical advice about side effects. You may report side effects to FDA at 8-398-FOW-1845. What other drugs will affect ferrous gluconate? Other drugs may interact with ferrous gluconate, including prescription and vvly-gkt-bomnvfs medicines, vitamins, and herbal products. Tell your doctor about all your current medicines and any medicine you start or stop using. Where can I get more information? Your pharmacist can provide more information about ferrous gluconate. Remember, keep this and all other medicines out of the reach of children, never share your medicines with others, and use this medication only for the indication prescribed. Every effort has been made to ensure that the information provided by [employer] ('[employer]') is accurate, up-to-date, and complete, but no guarantee is made to that effect. Drug information contained herein may be time sensitive. [employer] information has been compiled for use by healthcare practitioners and consumers in the [place] and therefore [employer] does not warrant that uses outside of the [place] are appropriate, unless specifically indicated otherwise. [employer] drug information does not endorse drugs, diagnose patients or recommend therapy. [employer] drug information is an informational resource designed [...] effective or appropriate for any given patient. [employer] does not assume any responsibility for any aspect of healthcare administered with the aid of information [facility] provides. The information contained herein is not intended to cover all possible uses, directions, precautions, warnings, drug interactions, allergic reactions, or adverse effects. If you have questions about the drugs you are taking, check with your doctor, nurse or pharmacist. Copyright 5419-2840 [employer]. Version: 2.01. Revision Date: 02/19/2017. acetaminophen and oxycodone (a SEET a MIN oh fen and OX i KOE done) Endocet 10/325, Endocet 2.5/325, Endocet 5/325, Endocet 7.5/325, Nalocet, Percocet 10/325, Percocet 2.5/325, Percocet 5/325, Percocet 7.5/325, Primalev, Primlev, Roxicet, Xartemis XR What is the most important information I should know about acetaminophen and oxycodone? MISUSE OF OPIOID MEDICINE CAN CAUSE ADDICTION, OVERDOSE, OR . Keep the medication in a place where others cannot get to it. An overdose of acetaminophen can damage your liver or cause . Call your doctor at once if you have pain in your upper stomach, loss of appetite, dark urine, or jaundice (yellowing of your skin or eyes). Taking opioid medicine during may cause life-threatening withdrawal symptoms in the . Fatal side effects can occur if you use opioid medicine with alcohol, or with other drugs that cause drowsiness or slow your breathing. Stop taking this medicine and call your doctor right away if you have skin redness or a rash that spreads and causes blistering and peeling. What is acetaminophen and oxycodone? Oxycodone is an opioid pain medication, sometimes called a narcotic. Acetaminophen is a less potent pain reliever that increases the effects of oxycodone. Acetaminophen and oxycodone is a combination medicine used to relieve moderate to severe pain. Acetaminophen and oxycodone may also be used for purposes not listed in this medication guide. What should I discuss with my healthcare provider before taking acetaminophen and oxycodone? You should not use this medicine if you are allergic to acetaminophen or oxycodone, or if you have: ?? severe asthma or breathing problems; or ?? a blockage in your stomach or intestines. Tell your doctor if you have ever had: ?? liver disease; ?? a drug or alcohol addiction; ?? kidney disease; ?? a head injury or seizures; ?? urination problems; or ?? problems with your thyroid, pancreas, or gallbladder. If you use opioid medicine while you are , your baby could become dependent on the drug. This can cause life-threatening withdrawal symptoms in the baby after it is born. Babies born dependent on opioids may need medical treatment for several weeks. Do not breast-feed. This medicine can pass into breast milk and cause drowsiness, breathing problems, or in a nursing baby. How should I take acetaminophen and oxycodone? Follow all directions on your prescription label. Never take this medicine in larger amounts, or for longer than prescribed. An overdose can damage your liver or cause . Tell your doctor if the medicine seems to stop working as well in relieving your pain. Never share this medicine with another person, especially someone with a history of drug abuse or addiction. MISUSE CAN CAUSE ADDICTION, OVERDOSE, OR . Keep the medicine in a place where others cannot get to it. Selling or giving away acetaminophen and oxycodone is against the law. Measure liquid medicine carefully. Use the dosing syringe provided, or use a medicine dose-measuring device (not a kitchen spoon). If you need surgery or medical tests, tell the doctor ahead of time that you are using this medicine. You should not stop using this medicine suddenly. Follow your doctor's instructions about tapering your dose. Store at room temperature away from moisture and heat. Keep track of your medicine. You should be aware if anyone is using it improperly or without a prescription. Do not keep leftover opioid medication. Just one dose can cause in someone using this medicine accidentally or improperly. Ask your pharmacist where to locate a drug take-back disposal program. If there is no take-back program, flush the unused medicine down the toilet. What happens if I miss a dose? Since this medicine is used for pain, you are not likely to miss a dose. Skip any missed dose if it is almost time for your next dose. Do not use two doses at one time. What happens if I overdose? Seek emergency medical attention or call the Poison Help line at . An overdose of acetaminophen and oxycodone can be fatal. The first signs of an acetaminophen overdose include loss of appetite, nausea, vomiting, stomach pain, sweating, and confusion or weakness. Later symptoms may include pain in your upper stomach, dark urine, and yellowing of your skin or the whites of your eyes. Overdose can also cause severe muscle weakness, pinpoint pupils, very slow breathing, extreme drowsiness, or coma. What should I avoid while taking acetaminophen and oxycodone? Avoid driving or operating machinery until you know how this medicine will affect you. Dizziness or drowsiness can cause falls, accidents, or severe injuries. Do not drink alcohol. Dangerous side effects or could occur. Ask a doctor or pharmacist before using any other medicine that may contain acetaminophen (sometimes abbreviated as APAP). Taking certain medications together can lead to a fatal overdose. What are the possible side effects of acetaminophen and oxycodone? Get emergency medical help if you have signs of an allergic reaction: hives; difficulty breathing; swelling of your face, lips, tongue, or throat. Opioid medicine can slow or stop your breathing, and may occur. A person caring for you should seek emergency medical attention if you have slow breathing with long pauses, blue colored lips, or if you are hard to wake up. In rare cases, acetaminophen may cause a severe skin reaction that can be fatal. This could occur even if you have taken acetaminophen in the past and had no reaction. Stop taking this medicine and call your doctor right away if you have skin redness or a rash that spreads and causes blistering and peeling. Call your doctor at once if you have: ?? noisy breathing, sighing, shallow breathing; ?? a light-headed feeling, like you might pass out; ?? weakness, tiredness, fever, unusual bruising or bleeding; ?? confusion, unusual thoughts or behavior; ?? problems with urination; ?? liver problems--nausea, upper stomach pain, tiredness, loss of appetite, dark urine, josafat-colored stools, jaundice (yellowing of the skin or eyes); or ?? low cortisol levels-- nausea, vomiting, loss of appetite, dizziness, worsening tiredness or weakness. Seek medical attention right away if you have symptoms of serotonin syndrome, such as: agitation, hallucinations, fever, sweating, shivering, fast heart rate, muscle stiffness, twitching, loss of coordination, nausea, vomiting, or diarrhea. Serious side effects may be more likely in older adults and those who are overweight, malnourished, or debilitated. Long-term use of opioid medication may affect fertility (ability to have children) in men or women. It is not known whether opioid effects on fertility are permanent. Common side effects include: ?? dizziness, drowsiness, feeling tired; ?? feelings of extreme happiness or sadness; ?? nausea, vomiting, stomach pain; ?? constipation; or ?? headache. This is not a complete list of side effects and others may occur. Call your doctor for medical advice about side effects. You may report side effects to FDA at 9-446-PTY-0212. What other drugs will affect acetaminophen and oxycodone? You may have breathing problems or withdrawal symptoms if you start or stop taking certain other medicines. Tell your doctor if you also use an antibiotic, antifungal medication, heart or blood pressure medication, seizure medication, or medicine to treat HIV or hepatitis C. Opioid medication can interact with many other drugs and cause dangerous side effects or . Be sure your doctor knows if you also use: ?? cold or allergy medicines, bronchodilator asthma/COPD medication, or a diuretic ('water pill'); ?? medicines for motion sickness, irritable bowel syndrome, or overactive bladder; ?? other narcotic medications--opioid pain medicine or prescription cough medicine; ?? a sedative like Valium--diazepam, alprazolam, lorazepam, Xanax, Klonopin, Versed, and others; ?? drugs that make you sleepy or slow your breathing--a sleeping pill, muscle relaxer, medicine to treat mood disorders or mental illness; ?? drugs that affect serotonin levels in your body--a stimulant, or medicine for depression, Parkinson's disease, migraine headaches, serious infections, or nausea and vomiting. This list is not complete. Other drugs may affect acetaminophen and oxycodone, including prescription and eeqi-eng-oxigzkm medicines, vitamins, and herbal products. Not all possible interactions are listed here. Where can I get more information? Your doctor or pharmacist can provide more information about acetaminophen and oxycodone. Remember, keep this and all other medicines out of the reach of children, never share your medicines with others, and use this medication only for the indication prescribed. Every effort has been made to ensure that the information provided by [employer]) is accurate, up-to-date, and complete, but no guarantee is made to that effect. Drug information contained herein may be time sensitive. [employer] information has been compiled for use by healthcare practitioners and consumers in the [place] and therefore [employer] does not warrant that uses outside of the [place] are appropriate, unless specifically indicated otherwise. [employer] drug information does not endorse drugs, diagnose patients or recommend therapy. [employer] drug information is an informational resource designed [...] effective or appropriate for any given patient. [employer] does not assume any responsibility for any aspect of healthcare administered with the aid of information [employer] provides. The information contained herein is not intended to cover all possible uses, directions, precautions, warnings, drug interactions, allergic reactions, or adverse effects. If you have questions about the drugs you are taking, check with your doctor, nurse or pharmacist. Copyright 7135-0901 [employer]. Version: 18.02. Revision Date: 04/23/2018. aspirin (oral) ( pir in) Arthritis Pain, Aspir [...] What is aspirin? Aspirin is a salicylate (ny-PCM-hg-ate). It works by reducing substances in the [...] allergic to it, or if you have: ?? a recent history of stomach or intestinal bleeding; ?? a bleeding disorder such as hemophilia; or ?? if you have ever had an asthma attack or severe allergic reaction after taking aspirin or an NSAID (non-steroidal anti-inflammatory drug). Tell your doctor if you have ever had: ?? asthma or seasonal allergies; ?? stomach ulcers; [...] your doctor at once if you have: ?? ringing in your ears, confusion, hallucinations, rapid breathing, seizure (convulsions); ?? severe nausea, vomiting, or stomach pain; ?? bloody or tarry stools, coughing up blood or vomit that looks like coffee grounds; ?? fever lasting longer than 3 days; or ?? swelling, or pain lasting longer than 10 days. Common side effects may include: ?? upset stomach, heartburn; ?? drowsiness; or ?? mild headache. This is not a complete list of side effects and others may occur. Call your doctor for medical advice about side effects. You may report side effects to FDA at 5-831-ELH-6510. What other drugs will affect aspirin? Ask your doctor before using aspirin if you take an antidepressant. Taking certain antidepressants with aspirin may cause you to bruise or bleed easily. Ask a doctor or pharmacist before using aspirin with any other medications, especially: ?? a blood thinner (warfarin, Coumadin, Jantoven), or other medication used to prevent blood clots; or ?? other salicylates such as Nuprin Backache Caplet, Kaopectate, KneeRelief, Pamprin Cramp Formula, Pepto-Bismol, Tricosal, Trilisate, and others. This list is not complete. Other drugs may affect aspirin, including prescription and pyrk-mtu-pjwfuem medicines, vitamins, and herbal products. Not all [...] to ensure that the information provided by [employer]. ('[employer]') is accurate, up-to-date, and complete, but no guarantee is made to that effect. Drug information contained herein may be time sensitive. [employer] information has been compiled for use by healthcare practitioners and consumers in the [place] and therefore [employer] does not warrant that uses outside of the [place] are appropriate, unless specifically indicated otherwise. [employer] drug information does not endorse drugs, diagnose patients or recommend therapy. [employer] drug information is an informational resource designed [...] effective or appropriate for any given patient. [employer] does not assume any responsibility for any aspect of healthcare administered with the aid of information [employer] provides. The information contained herein is not intended to cover all possible uses, directions, precautions, warnings, drug interactions, allergic reactions, or adverse effects. If you have questions about the drugs you are taking, check with your doctor, nurse or pharmacist. Copyright 2049-9233 [employer]. Version: 15.. Revision Date: 08/26/2017. docusate (oral/rectal) (DOK ue sate) Colace, Diocto, Dioeze, Doc-Q-Lace, Docu, Docu Soft, Doculase, Docuprene, Docusil, Docusoft S, DocuSol, DOK, DSS, Dulcolax Stool Softener, Enemeez Mini, Kody-Tin, Octycine-250, Pedia-Lax Stool Softener, Osorio Stool Softener, Promolaxin, Silace, Surfak Stool Softener, Richard-Q-Lax, Vacuant What is the most important information I should know about docusate? You should not use docusate if you have a blockage in your intestines. Do not use docusate while you are sick with nausea, vomiting, or severe stomach pain. You should not take mineral oil while using docusate. What is docusate? Docusate is a stool softener. It makes bowel movements softer and easier to pass. Docusate is used to treat or prevent constipation, and to reduce pain or rectal damage caused by hard stools or by straining during bowel movements. Docusate may also be used for purposes not listed in this medication guide. What should I discuss with my healthcare provider before using docusate? You should not use docusate if you are allergic to it, or if you have: ?? nausea, vomiting, or severe stomach pain; ?? a blockage in your intestines; or ?? chronic stomach pain that has not been checked by a doctor. You should not take mineral oil while using docusate. Ask a doctor or pharmacist if it is safe for you to take docusate: ?? if you are on a low-salt diet; or ?? if you have recently had a sudden change in your bowel habits lasting for longer than 2 weeks. FDA category C. It is not known whether docusate will harm an unborn baby. Do not use this medicine without a doctor's advice if you are . It is not known whether docusate passes into breast milk or if it could harm a nursing baby. Do not use this medicine without a doctor's advice if you are breast-feeding a baby. Do not give this medicine to a child younger than 6 years old without the advice of a doctor. How should I use docusate? Use exactly as directed on the label, or as prescribed by your doctor. Do not use in larger or smaller amounts or for longer than recommended. Take this medicine with a full glass of water. Drink plenty of liquids while you are taking docusate. Do not crush, chew, break, or open a docusate capsule or tablet. Swallow it whole. Measure liquid medicine with the dosing syringe provided, or with a special dose-measuring spoon or medicine cup. If you do not have a dose-measuring device, ask your pharmacist for one. Mix the liquid with 6 to 8 ounces of milk, fruit juice, or formula and drink the mixture right away. After taking docusate by mouth (tablets, capsules, liquid), you should have a bowel movement within 12 to 72 hours. Do not take docusate rectal enema by mouth. It is for use only in your rectum. Wash your hands before and after using docusate enema. Try to empty your bowel and bladder just before using the enema. Remove the cap from the enema applicator tip. Lie down on your left side with your knees bent, and gently insert the tip of the enema applicator into the rectum. Squeeze the tube to empty the entire contents into the rectum. Throw away the tube, even if there is still some medicine left in it. For best results, hold in the enema for as long as possible, or until you have a bowel movement. The rectal enema should produce a bowel movement within 2 to 15 minutes. Do not use docusate for longer than 7 days unless your doctor has told you to. Call your doctor if your symptoms do not improve, or if you have not had a bowel movement within 1 to 3 days. Overuse of a stool softener can lead to serious medical problems. Store at room temperature away from moisture and heat. What happens if I miss a dose? Since docusate is used when needed, you may not be on a dosing schedule. If you are on a schedule, use the missed dose as soon as you remember. Skip the missed dose if it is almost time for your next scheduled dose. Do not use extra medicine to make up the missed dose. What happens if I overdose? Seek emergency medical attention or call the Poison Help line at . Overdose symptoms may include nausea, vomiting or stomach pain. What should I avoid while using docusate? Avoid using laxatives or other stool softeners unless your doctor has told you to. What are the possible side effects of docusate? Get emergency medical help if you have any of these signs of an allergic reaction: hives; difficult breathing; swelling of your face, lips, tongue, or throat. Stop using docusate and call your doctor at once if you have: ?? pounding heartbeats or fluttering in your chest; ?? a light-headed feeling, like you might pass out; ?? rectal bleeding or irritation; ?? numbness or a rash around your rectum; ?? vomiting, severe diarrhea or stomach cramps; or ?? continued constipation, or no bowel movement. Common side effects may include: ?? dizziness, weakness; ?? gas, bloating, mild diarrhea; ?? rectal irritation; or ?? sweating. This is not a complete list of side effects and others may occur. Call your doctor for medical advice about side effects. You may report side effects to FDA at 4-940-PZM-6688. What other drugs will affect docusate? Other drugs may interact with docusate, including prescription and mazt-ysp-xfovqam medicines, vitamins, and herbal products. Tell each of your health care providers about all medicines you use now and any medicine you start or stop using. Where can I get more information? Your pharmacist can provide more information about docusate. Remember, keep this and all other medicines out of the reach of children, never share your medicines with others, and use this medication only for the indication prescribed. Every effort has been made to ensure that the information provided by [employer]. ('[employer]') is accurate, up-to-date, and complete, but no guarantee is made to that effect. Drug information contained herein may be time sensitive. [employer] information has been compiled for use by healthcare practitioners and consumers in the [place] and therefore [employer] does not warrant that uses outside of the [place] are appropriate, unless specifically indicated otherwise. [employer] drug information does not endorse drugs, diagnose patients or recommend therapy. [employer] drug information is an informational resource designed [...] effective or appropriate for any given patient. [employer] does not assume any responsibility for any aspect of healthcare administered with the aid of information [employer] provides. The information contained herein is not intended to cover all possible uses, directions, precautions, warnings, drug interactions, allergic reactions, or adverse effects. If you have questions about the drugs you are taking, check with your doctor, nurse or pharmacist. Copyright 6836-7714 [employer]. Version: 3.03. Revision Date: 07/08/2013. Emergency Awareness and Preventative Care STROKE is [...] Assistance with quitting is available by contacting 4-606-DAOV-NOW. This is a free resource providing counseling, support, and referral. Or you may contact your personal physician. [employer] Suicide Prevention Lifeline: The National Suicide Prevention [...] of a heart attack, DON???T DELAY. Call 9-1-1 immediately and seek help. If someone collapses, [...] This Visit (last charted value for your 01/07/2019 visit) Hematology 01/08/19 04:14:00 WBC: 10.4 K/uL -- Normal range between ( 3.6 and 9.5 ) RBC: 3.29 Million/uL -- Normal range between ( 4.20 and 5.70 ) Hct: 30.6 % -- Normal range between ( 40.1 and 51.0 ) Hgb: 10.1 g/dL -- Normal range between ( 13.5 and 17.3 ) Platelet Count: 158 K/uL -- Normal range between ( 163 and 369 ) MCH: 30.7 pg -- Normal range between ( 25.6 and 32.2 ) MCHC: 33.0 Gram/dL -- Normal range between ( 32.2 and 36.5 ) MCV: 93.0 fL -- Normal range between ( 79.0 and 94.8 ) Slide Review: No Eos %: 0.0 % -- Normal range between ( 0.0 and 7.0 ) Riley #: 1.32 K/uL -- Normal range between ( 0.16 and 1.00 ) Eos #: 0.00 x10(3)/uL -- Normal range between ( 0.00 and 0.80 ) Riley %: 12.7 % -- Normal range between ( 3.0 and 9.0 ) Baso %: 0.2 % -- Normal range between ( 0.0 and 1.5 ) Baso #: 0.02 x10(3)/uL -- Normal range between ( 0.00 and 0.20 ) RDW: 12.9 % -- Normal range between ( 11.7 and 14.9 ) Neut %: 78.4 % -- Normal range between ( 34.0 and 71.0 ) Neut #: 8.12 K/uL -- Normal range between ( 1.56 and 6.13 ) Lymph %: 8.1 % -- Normal range between ( 19.3 and 53.1 ) Lymph #: 0.84 x10(3)/uL -- Normal range between ( 1.00 and 3.90 ) MPV: 10.6 fL -- Normal range between ( 9.4 and 12.4 ) IG#: 0.06 x10(3)/uL -- Normal range between ( 0.00 and 0.05 ) IG%: 0.60 % -- Normal range between ( 0.00 and 0.60 ) Microbiology 12/17/18 13:38:00 MRSA Surveillance: POS General Chemistry 01/08/19 15:39:00 Glucose POC2: 102 mg/dL -- Normal range between ( 70 and 110 ) Device Comment 1: Device Comment 1 01/08/19 04:14:00 Creatinine Level: 1.10 mg/dL -- Normal range between ( 0.70 and 1.30 ) Sodium Level: 139 mmol/L -- Normal range between ( 136 and 146 ) Potassium Level: 4.5 mmol/L -- Normal range between ( 3.5 and 5.1 ) Chloride Level: 108 mmol/L -- Normal range between ( 102 and 112 ) Carbon Dioxide Level: 25 mmol/L -- Normal range between ( 21 and 32 ) Anion Gap: 10 -- Normal range between ( 9 and 20 ) Bun/Creatinine: 17.3 -- Normal range between ( 8.0 and 20.0 ) Calcium Level: 8.8 mg/dL -- Normal range between ( 8.4 and 10.1 ) eGFR : >60 mL/min/1.73m2 eGFR NonAfrican: >60 mL/min/1.73m2 Glucose Level: 140 mg/dL -- Normal range between ( 74 and 106 ) Blood Urea Nitrogen: 19 mg/dL -- Normal range between ( 7 and 22 ) 01/07/19 06:30:00 Potassium POC: 4.6 mmol/L -- Normal range between ( 3.5 and 4.9 ) Glucose POC: 114 mg/dL -- Normal range between ( 70 and 105 ) 12/17/18 15:30:00 Bilirubin Total: 0.4 mg/dL -- Normal range between ( 0.2 and 1.2 ) A/G Ratio: 1.2 -- Normal range between ( 1.1 and 2.5 ) ALT: 21 Units/Liter -- Normal range between ( 16 and 61 ) AST: 18 Units/Liter -- Normal range between ( 5 and 37 ) Globulin: 3.5 Gram/dL -- Normal range between ( 1.5 and 4.5 ) Alk Phos: 93 Units/Liter -- Normal range between ( 27 and 136 ) Bilirubin Direct: <0.1 mg/dL -- Normal range between ( 0.0 and 0.2 ) Protein Total: 7.7 Gram/dL -- Normal range between ( 6.4 and 8.2 ) Albumin Level: 4.2 Gram/dL -- Normal range between ( 3.4 and 5.0 ) Coagulation 12/17/18 13:38:00 INR: 1.0 -- Normal range between ( 0.9 and 1.1 ) PTT: 33.2 Second(s) -- Normal range between ( 22.0 and 32.0 ) PT: 10.6 Second(s) -- Normal range between ( 9.6 and 12.0 ) Lipid Studies 01/07/19 06:34:00 Cholesterol Tot: 148 mg/dL -- Normal range between ( 0 and 199 ) Cholesterol HDL: 54.0 mg/dL Cholesterol LDL Calculation: 75.8 mg/dL -- Normal range between ( 0.0 and 99.0 ) Cholesterol VLDL Calculation: 18.2 mg/dL -- Normal range between ( 5.0 and 40.0 ) Cholesterol/HDL Ratio: 2.7 -- Normal range between ( 0.0 and 3.2 ) Triglyceride: 91 mg/dL -- Normal range between ( 0 and 249 ) LDL/HDL Ratio: 1.4 -- Normal range between ( 0.0 and 3.6 ) Diagnostic Radiology 01/07/19 09:00:00 CR Fluoro in OR: CR Fluoro in OR Patient Name:NADER TOLENTINO I have received and understand this information and was given the opportunity to ask questions. Patient/Tail Edger Name: Patient/Tail Edger Signature: Relationship to Patient: Clinician/Hospital Tail Edger Signature: Date: Electronically signed by Victor Manuel Alcala Conversion Electronic Repair Troubleshooter Alpesh at 09/14/2022 12:17 PM CDT documented in this encounter Plan of Treatment Not on file documented as of this encounter Visit Diagnoses Not on filedocumented in this encounter
--- OUTSIDE RECORDS SUMMARY | 2024-11-24 18:05 | XMS_ITS | Encounter Summary ---
Author Organization [employer] ([place], [place], [place], [place]) Address [address] [place] [address] Care Team Providers Care Council On Aging Director Name Role Phone Unavailable Primary Care Provider Unavailabl e Encounter Details Date Type Department Care Team (Late st Contact Info) Description 11/12/2018 Transcribed Document [facility] [place] Family Medicine [facility] [place] [address] ProviderBrianne MD [address] [place] [address] Social History Tobacco Use Types Packs/Day Years Used Date Smoking Tobacco: Never Assessed Sex and Gender Information Value Date Recorded Sex Assigned at Male 11/21/2021 1:59 PM CDT Legal Sex Male 1:59 PM CDT Gender Identity Male 11/21/2021 1:59 PM CDT Sexual Orientation Not on file documented as of this encounter Miscellaneous Notes * Svetlananer Conversion Note - Historical ProviderMD - 11/12/2018 9:47 AM CDT Event Note Entered On: 11/12/2018 9:54 EDT Performed On: 11/12/2018 9:47 EDT by JAX MENDEZ, RN Event Note Description of Event : 0840 b/p 208/[address] BUCHANAN notified. Called MD DR rodriguez and pt has an appoitment at 300pm today. repeated EKG Had appointment with DR Toledo for evaluation of carotids at 2pm.. called office and they will see him at 1000. 0930 b/p left 214/92 right 205/91. no compliants from pt. inst given to tahmina need a letter of clearance from DR rodriguez and dr. Moscoso neurologist. dr rodriguez phone number [phone]. will have Ariana Mccallum call daughter and go over class instructions with pt/daughter or reschedule appt for class... JAX MENDEZ RN - 11/12/2018 9:47 EDT Electronically signed by Victor Manuel Alcala Conversion Oval Or Circular Glass Cutter Cerner at 09/14/2022 12:19 PM CDT documented in this encounter Plan of Treatment Not on file documented as of this encounter Visit Diagnoses Not on filedocumented in this encounter
--- OUTSIDE RECORDS SUMMARY | 2024-11-24 18:05 | XMS_ITS | Encounter Summary ---
Author Organization [employer] ([place], [place], [place], [place]) Address [address] [place] [address] Care Team Providers Care Operator And Truck Driver Name Role Phone Unavailable Primary Care Provider Unavailabl e Encounter Details Date Type Department Care Team (Late st Contact Info) Description 01/07/2019 Transcribed Document [facility] [place] Family Medicine [facility] [place] [address] ProviderBrianne MD [address], [place] [id number] Social History Tobacco Use Types Packs/Day Years Used Date Smoking Tobacco: Never Assessed Sex and Gender Information Value Date Recorded Sex Assigned at Male 11/21/2021 1:59 PM CDT Legal Sex Male 1:59 PM CDT Gender Identity Male 11/21/2021 1:59 PM CDT Sexual Orientation Not on file documented as of this encounter Miscellaneous Notes * Cerner Conversion Note - Brianne Kim MD - 01/07/2019 6:28 AM CDT Consult Phone Call Documentation Entered On: 01/07/2019 6:29 EDT Performed On: 01/07/2019 6:28 EDT by Whit Lamb RN Phone Call for Consults Consult Phone Call/Page Attempt : Other: consult txt to Maikol Loera of consult Physician Requesting Consult : JULIO RUSHING MD-ORT Physician Requested for Consult : LEONOR CRISOSTOMO MD-INT Provider Service Notified Name : Internal medicine Whit Lamb RN - 01/07/2019 6:28 EDT Electronically signed by Cari [facility] Conversion [employer] Commerce Architect Cerner at 09/14/2022 12:15 PM CDT documented in this encounter Plan of Treatment Not on file documented as of this encounter Visit Diagnoses Not on filedocumented in this encounter
--- OUTSIDE RECORDS SUMMARY | 2024-11-24 18:05 | XMS_ITS | Encounter Summary ---
Author Organization [employer] ([place], [place], [place], [place]) Address [address] [place] [address] Care Team Providers Care Nurse Technician Name Role Phone Unavailable Primary Care Provider Unavailabl e Encounter Details Date Type Department Care Team (Late st Contact Info) Description 01/08/2019 Transcribed Document [facility] [place] Family Medicine [facility] [place] [address] ProviderBrianne MD [address] [place], [place] [id number] Social History Tobacco Use Types Packs/Day Years Used Date Smoking Tobacco: Never Assessed Sex and Gender Information Value Date Recorded Sex Assigned at Male 11/21/2021 1:59 PM CDT Legal Sex Male 1:59 PM CDT Gender Identity Male 11/21/2021 1:59 PM CDT Sexual Orientation Not on file documented as of this encounter Miscellaneous Notes * Cerner Conversion Note - Historical ProviderMD - 01/08/2019 8:54 AM CDT UM Authorization Entered On: 01/08/2019 8:54 EDT Performed On: 01/08/2019 8:54 EDT by Krista Sheldon Rn-Utilization Review Primary Insurance Authorization Authorization and Policy Numbers : Insurance 1 Health Plan: MEDICARE Policy Number: [id number] Authorization Number: Insurance 2 Health Plan: A[employer] N Policy Number: [id number] Authorization Number: Insurance Primary Name : MEDICARE Authorized Service Begin Date-Primary : 01/07/2019 EDT Historical Authorization Comments-Primary : No Authorization Comments Found Krista Sheldon Rn-Utilization Review - 01/08/2019 8:54 EDT Electronically signed by Victor Manuel Alcala Conversion Third Shift Lieutenant Cermarian at 09/14/2022 12:12 PM CDT documented in this encounter Plan of Treatment Not on file documented as of this encounter Visit Diagnoses Not on filedocumented in this encounter
--- OUTSIDE RECORDS SUMMARY | 2024-11-24 18:05 | XMS_ITS | Encounter Summary ---
Author Organization [employer] ([place], [place], [place], [place]) Address [address] [place] [address] Care Team Providers Care Cell Attendant Name Role Phone Unavailable Primary Care Provider Unavailabl e Encounter Details Date Type Department Care Team (Late st Contact Info) Description 11/30/2018 Transcribed Document [facility] [place] Family Medicine [facility] [place] [address] ProviderBrianne MD [facility] [place] [id number] Social History Tobacco Use Types Packs/Day Years Used Date Smoking Tobacco: Never Assessed Sex and Gender Information Value Date Recorded Sex Assigned at Male 11/21/2021 1:59 PM CDT Legal Sex Male 1:59 PM CDT Gender Identity Male 11/21/2021 1:59 PM CDT Sexual Orientation Not on file documented as of this encounter Miscellaneous Notes * Cerner Conversion Note - Historical MD Julio - 11/30/2018 12:54 PM CDT Nursing Discharge Summary Entered On: 11/30/2018 13:04 EDT Performed On: 11/30/2018 12:54 EDT by Carina Barriga Rn Discharge Documentation Discharge Date/Time : 11/30/2018 13:10 EDT Transporter Signature : Carina Barriga Rn Patient Disposition, General : Discharge Discharge To : Home with ambulatory/outpatient follow-up Mode Of Departure, General Discharge : Private vehicle Accompanied By, Discharge : Daughter Discharge Instructions Reviewed With, Opportunity For Questions Given : Patient, Daughter Patient Education Completed : Yes Teaching Method : Explanation Teaching Evaluation : Verbalizes understanding Carina Barriga Rn - 11/30/2018 12:54 EDT documented in this encounter Plan of Treatment Not on file documented as of this encounter Visit Diagnoses Not on filedocumented in this encounter
--- OUTSIDE RECORDS SUMMARY | 2024-11-24 18:05 | XMS_ITS | Encounter Summary ---
Author Organization [employer] ([place], [place], [place], [place]) Address [address] [place] [address] Care Team Providers Care Frame Cleaner Name Role Phone Unavailable Primary Care Provider Unavailabl e Encounter Details Date Type Department Care Team (Late st Contact Info) Description 11/30/2018 Transcribed Document [facility] Family Medicine [facility] [place] [address] ProviderBrianne MD [facility] [place] [id number] Social History Tobacco Use Types Packs/Day Years Used Date Smoking Tobacco: Never Assessed Sex and Gender Information Value Date Recorded Sex Assigned at Male 11/21/2021 1:59 PM CDT Legal Sex Male 1:59 PM CDT Gender Identity Male 11/21/2021 1:59 PM CDT Sexual Orientation Not on file documented as of this encounter Miscellaneous Notes * Cerner Conversion Note - Brianne ProviderMD - 11/30/2018 4:15 PM CDT ED Assessment Entered On: 11/30/2018 16:57 EDT Performed On: 11/30/2018 16:56 EDT by Maria C Cotter RN ED Quick Look Assessment Level of Consciousness : Alert, Awake, Confused Affect/Behavior : Appropriate, Calm, Cooperative Orientation : Oriented x 4 Skin Temperature : Warm Skin Description : Dry Maria C Cotter RN - 11/30/2018 16:56 EDT ED General-Functional Assess Information Obtained From : Patient, Daughter Preferred Communication Mode : Verbal Communication Barrier : None Primary Language : Venezuelan Any Spiritual/Cultural Needs or Requests : No Currently in Unsafe Situation : No Living Situation : Home Patient Lives With : Adult Child/Children Current Daily Living Assistance : Housekeeping, Transportation Sensory Deficits : None Mobility Assistance Prior to Admission : Partial assistance Home Equipment : Blood glucose monitor Maria C Cotter RN - 11/30/2018 16:56 EDT Social Habits Smoking Status : Never (less than 100 in lifetime; none in last 30 days) Smokeless Tobacco Status : Never Desires Tobacco Cessation Calc : 0 Maria C Cotter RN - 11/30/2018 16:56 EDT Social History (As Of: 11/30/2018 16:57:32 EDT) Tobacco: Never (less than 100 in lifetime) Smoking Status. Never Smokeless Tobacco Status. (Last Updated: 11/12/2018 08:40:37 EDT by JAX MENDEZ, DVA) Alcohol: Alcohol Use History No. (Last Updated: 11/12/2018 08:40:43 EDT by JAX MENDEZ, RN) Substance Abuse: Drug Use Hx: No. Use in Last 12 Months: No. (Last Updated: 11/12/2018 08:40:51 EDT by JAX MENDEZ, RN) Home/Environment: Lives with Alone. Home equipment: Glucose monitoring. (Last Updated: 11/12/2018 08:41:45 EDT by JAX MENDEZ, RN) Neurologic ASMT, ED Neurologic Assessment WDL : WDL with exceptions Level of Consciousness : Confused Affect/Behavior : Appropriate, Calm, Cooperative Pupil Description, Left : Regular, Round Pupil Description, Right : Regular, Round Maria C Cotter RN - 11/30/2018 16:56 EDT Electronically signed by Cari [facility] Conversion [employer] Program Director Cerner at 09/13/2022 4:23 PM CDT documented in this encounter Plan of Treatment Not on file documented as of this encounter Visit Diagnoses Not on filedocumented in this encounter
--- OUTSIDE RECORDS SUMMARY | 2024-11-24 18:05 | XMS_ITS | Encounter Summary ---
Author Organization [employer] ([place], [place], [place], [place]) Address [address] [place] [address] Care Team Providers Care Financial Sales Associate Name Role Phone Unavailable Primary Care Provider Unavailabl e Encounter Details Date Type Department Care Team (Late st Contact Info) Description 11/30/2018 Transcribed Document [facility] [place] Family Medicine [facility] [place] [address] ProviderBrianne MD [address], [place] [id number] Social History Tobacco Use Types Packs/Day Years Used Date Smoking Tobacco: Never Assessed Sex and Gender Information Value Date Recorded Sex Assigned at Male 11/21/2021 1:59 PM CDT Legal Sex Male 1:59 PM CDT Gender Identity Male 11/21/2021 1:59 PM CDT Sexual Orientation Not on file documented as of this encounter Miscellaneous Notes * Cerner Conversion Note - Brianne ProviderMD - 11/30/2018 4:51 PM CDT Patient: NADER TOLENTINO Age: 78 years Sex: Male : 1940 Associated Diagnoses: Confusion; Fluctuating blood pressure Author: LEO DE LA O ARNP Basic Information Time seen: Date & time 11/30/2018 16:43:00. History source: Patient, daughter. Arrival mode: Private vehicle. History limitation: None. Additional information: Chief Complaint from Nursing Triage Note : Chief Complaint 11/30/2018 16:16 EDT Chief Complaint pt d/c from hospital at 13:00 today, per family pt disorieted, confused, not acting right, unsteady gait. . History of Present Illness The patient presents with confusion. The onset was 2 days ago. The course/duration of symptoms is fluctuating in intensity. The character of symptoms is disoriented and confused. The degree at onset was minimal. The degree at present is minimal. Baseline status: alert and oriented X 4. The exacerbating factor is Patient recently discharged from this facility at 1 PM this afternoon. Patient's daughter states patient has had some confusion yesterday while in the hospital having difficulty eating his lunch, and doing simple test. Patient's daughter states the confusion continued when the patient got home and actually got worse. Patient states he had difficulty walking with loss of balance. Patient had a recent left carotid stent placement per Dr. Irby. The relieving factor is none. Risk factors consist of diabetes mellitus, hypertension, coronary artery disease and cerebral vascular accident. Prior episodes: rare. Therapy today: see nurses notes. Associated symptoms: none. Review of Systems Constitutional symptoms: Negative except as documented in HPI. Skin symptoms: Negative except as documented in HPI. Eye symptoms: Negative except as documented in HPI. ENMT symptoms: Negative except as documented in HPI. Respiratory symptoms: Negative except as documented in HPI. Cardiovascular symptoms: Negative except as documented in HPI. Gastrointestinal symptoms: Negative except as documented in HPI. Genitourinary symptoms: Negative except as documented in HPI. Musculoskeletal symptoms: Negative except as documented in HPI. Neurologic symptoms: Negative except as documented in HPI, Confusion, loss of balance. Psychiatric symptoms: Negative except as documented in HPI. Endocrine symptoms: Negative except as documented in HPI. Health Status Allergies: Allergic Reactions (Selected) Severity Not Documented NSAIDs- Kidney disease.. Medications: (Selected) Inpatient Medications Ordered Ancef: 2,000 mg, 100 mL, 200 mL/Hr, IV Piggyback, PREOP Lipitor: 20 mg, Oral, At Bedtime Nephrocaps: 1 Cap, Oral, Daily Normal Saline Flush: 10 mL, IV Push, 1-Time Trandate: 10 mg, IV Push, Q1H, PRN: Hypertension Vitamin B12: 1,000 mcg, Oral, Daily Vitamin D3: 2,000 Units, Oral, Daily Zofran: 4 mg, IV Push, Q4H, PRN: Nausea acetaminophen-HYDROcodone 325 mg-5 mg oral tablet: 1 Tab, Oral, Q4H, PRN: Pain (Moderate 4-6) aspirin: 81 mg, Oral, Daily carvedilol: 12.5 mg, Oral, BID cloNIDine: 0.1 mg, Oral, Daily clopidogrel: 75 mg, Oral, At Bedtime glimepiride: 4 mg, Oral, Daily hydrALAZINE: 10 mg, IV Push, Q2H, PRN: Hypertension insulin lispro 50 kg - 75 k kg - 75 kg scale, SubCutaneous, AC and at Bedtime levothyroxine: 88 mcg, Oral, Daily lisinopril: 20 mg, Oral, Daily morphine: 2 mg, IV Push, Q2H, PRN: Pain (Moderate 4-6) niCARdipine injection 25 mg + NaCl 0.9% for drip 250 mL: TITRATE, IntraVENous pantoprazole: 40 mg, Oral, Daily ubiquinone: 100 mg, Oral, Daily Documented Medications Documented Nature's Bounty Red Krill Oil: 350 mg, Oral, Daily, 0 Refill(s) Vitamin B Complex oral capsule: 1 Cap, Oral, Daily, 0 Refill(s) Vitamin B12: 1,000 mcg, Oral, Daily, 0 Refill(s) Vitamin D3: 2,000 Int Units, Oral, Daily, 0 Refill(s) aspirin: 81 mg, Oral, Daily, 0 Refill(s) carvedilol 12.5 mg oral tablet: 1 Tab, Oral, BID, 0 Refill(s) clonidine 0.1 mg oral tablet: Tab, Oral, BID, 0 Refill(s) clopidogrel: 75 mg, Oral, At Bedtime, 0 Refill(s) elppa CoQ10 50 mg oral capsule: 2 Cap, Oral, Daily, 0 Refill(s) glimepiride: 4 mg, Oral, Daily, 0 Refill(s) levothyroxine: 88 mcg, Oral, Daily, 0 Refill(s) lisinopril: 20 mg, Oral, Daily, 0 Refill(s) omeprazole: 40 mg, Oral, At Bedtime, 0 Refill(s) simvastatin: 40 mg, Oral, At Bedtime, 0 Refill(s), per nurse's notes. Immunizations: Per nurse's notes. Past Medical/ Family/ Social History Medical history Reviewed as documented in chart. Surgical history: EGD in 2017 at 77 Years. [...] shoulder///torn rotator. prostatectomy. kidney stone removal. cataract removal., Reviewed as documented in chart. Family history: No family history items have been selected or recorded., Reviewed as documented in chart. Social history: Social & Psychosocial Habits Alcohol 11/12/2018 Alcohol Use History, Social Habits No Home/Environment 11/12/2018 Lives with: Alone Home equipment: Glucose monitoring Substance Abuse 11/12/2018 Recreational Drug Use History No Recreational Drug Use Last 12 Months No Tobacco 11/12/2018 Smoking Status Never (less than 100 in l Smokeless Tobacco Status Never , Reviewed as documented in chart. Problem list: Active Problems (20) Arthritis At risk for sleep apnea Barretts esophagus Cancer//left side of neck Carotid artery disease Cataract//extraction Diabetes mellitus type II Disorder of prostate//cancer GERD - Gastro-esophageal reflux disease Hard of hearing Hyperlipidemia Hypertension Kidney disease///stage 3 Renal calculus Right hip pain Right knee pain Thyroid disease TIA (transient ischemic attack) 2013 and 05/2018 Urinary //artifical urinary sphincter Urinary catheter complication////DO NOT CATH///URINARY , per nurse's notes. Physical Examination Vital Signs Vital Signs/Vital Measures 11/30/2018 16:16 EDT Systolic Blood Pressure 180 mmHg HI Diastolic Blood Pressure 75 mmHg Temperature Source Oral Temperature Mode Fahrenheit Temperature, Fahrenheit 98.9 Deg F Clinical Temperature, C 37.2 Deg C Peripheral Pulse Rate 60 bpm Respiratory Rate 16 Breaths/Min Oxygen Saturation 97 % Oxygen Therapy Mode Room air 11/30/2018 12:50 EDT Systolic Blood Pressure 112 mmHg Diastolic Blood Pressure 55 mmHg LOW Mean Arterial Pressure (MAP)-BMDI 76 Heart Rate Monitored 60 bpm Respiratory Rate 25 Breaths/Min HI Oxygen Saturation 100 % Oxygen Therapy Mode Room air 11/30/2018 12:00 EDT Systolic Blood Pressure 94 mmHg Diastolic Blood Pressure 50 mmHg LOW Mean Arterial Pressure (MAP)-BMDI 69 Heart Rate Monitored 51 bpm LOW Respiratory Rate 16 Breaths/Min Oxygen Saturation 99 % Oxygen Therapy Mode Room air 11/30/2018 11:00 EDT Systolic Blood Pressure 125 mmHg Diastolic Blood Pressure 64 mmHg Mean Arterial Pressure (MAP)-BMDI 89 Heart Rate Monitored 55 bpm LOW Respiratory Rate 26 Breaths/Min HI Oxygen Saturation 100 % Oxygen Therapy Mode Room air 11/30/2018 10:16 EDT Heart Rate, Apical 57 bpm LOW 11/30/2018 10:00 EDT Systolic Blood Pressure 126 mmHg Diastolic Blood Pressure 57 mmHg LOW Mean Arterial Pressure (MAP)-BMDI 82 Heart Rate Monitored 56 bpm LOW Respiratory Rate 24 Breaths/Min HI Oxygen Saturation 100 % Oxygen Therapy Mode Room air 11/30/2018 9:00 EDT Systolic Blood Pressure 125 mmHg Diastolic Blood Pressure 61 mmHg Mean Arterial Pressure (MAP)-BMDI 84 Heart Rate Monitored 57 bpm LOW Respiratory Rate 16 Breaths/Min Oxygen Saturation 100 % Oxygen Therapy Mode Room air 11/30/2018 8:20 EDT Oxygen Saturation 100 % Oxygen Therapy Mode Room air 11/30/2018 8:00 EDT Systolic Blood Pressure 172 mmHg HI Diastolic Blood Pressure 75 mmHg Mean Arterial Pressure (MAP)-BMDI 108 Temperature Source Axillary Temperature Mode Fahrenheit Temperature, Fahrenheit 97.8 Deg F Clinical Temperature, C 36.6 Deg C Heart Rate Monitored 56 bpm LOW Respiratory Rate 23 Breaths/Min HI Oxygen Saturation 100 % Oxygen Therapy Mode Room air 11/30/2018 7:00 EDT Systolic Blood Pressure 151 mmHg HI Diastolic Blood Pressure 68 mmHg Mean Arterial Pressure (MAP)-BMDI 98 Heart Rate Monitored 57 bpm LOW Respiratory Rate 30 Breaths/Min HI Oxygen Saturation 100 % Oxygen Therapy Mode Room air 11/30/2018 6:00 EDT Systolic Blood Pressure 127 mmHg Diastolic Blood Pressure 61 mmHg Mean Arterial Pressure (MAP)-BMDI 88 Heart Rate Monitored 56 bpm LOW Respiratory Rate 22 Breaths/Min HI Oxygen Saturation 99 % Oxygen Therapy Mode Room air 11/30/2018 5:12 EDT Systolic Blood Pressure 148 mmHg HI Diastolic Blood Pressure 65 mmHg Mean Arterial Pressure (MAP)-BMDI 93 Heart Rate Monitored 59 bpm LOW Respiratory Rate 36 Breaths/Min HI Oxygen Saturation 99 % 11/30/2018 5:00 EDT Oxygen Therapy Mode Room air 11/30/2018 4:00 EDT Systolic Blood Pressure 134 mmHg Diastolic Blood Pressure 61 mmHg Mean Arterial Pressure (MAP)-BMDI 88 Temperature Source Oral Temperature Mode Fahrenheit Temperature, Fahrenheit 98.6 Deg F Clinical Temperature, C 37 Deg C Clinical Temperature, C 37 Deg C Heart Rate Monitored 61 bpm Respiratory Rate 20 Breaths/Min Oxygen Saturation 99 % Oxygen Therapy Mode Room air 11/30/2018 3:00 EDT Systolic Blood Pressure 173 mmHg HI Diastolic Blood Pressure 75 mmHg Mean Arterial Pressure (MAP)-BMDI 108 Heart Rate Monitored 61 bpm Respiratory Rate 20 Breaths/Min Oxygen Saturation 99 % Oxygen Therapy Mode Room air 11/30/2018 2:00 EDT Systolic Blood Pressure 121 mmHg Diastolic Blood Pressure 63 mmHg Mean Arterial Pressure (MAP)-BMDI 87 Heart Rate Monitored 60 bpm Respiratory Rate 22 Breaths/Min HI Oxygen Saturation 99 % Oxygen Therapy Mode Room air 11/30/2018 1:00 EDT Systolic Blood Pressure 141 mmHg HI Diastolic Blood Pressure 64 mmHg Mean Arterial Pressure (MAP)-BMDI 92 Heart Rate Monitored 57 bpm LOW Respiratory Rate 18 Breaths/Min Oxygen Saturation 99 % Oxygen Therapy Mode Room air 11/30/2018 0:00 EDT Systolic Blood Pressure 106 mmHg Diastolic Blood Pressure 58 mmHg LOW Mean Arterial Pressure (MAP)-BMDI 79 Temperature Source Oral Temperature Mode Fahrenheit Temperature, Fahrenheit 98 Deg F Clinical Temperature, C 36.7 Deg C Clinical Temperature, C 36.7 Deg C Heart Rate Monitored 57 bpm LOW Respiratory Rate 20 Breaths/Min Oxygen Saturation 98 % Oxygen Therapy Mode Room air 11/29/2018 23:30 EDT Systolic Blood Pressure 108 mmHg Diastolic Blood Pressure 55 mmHg LOW Mean Arterial Pressure (MAP)-BMDI 75 Heart Rate Monitored 59 bpm LOW Respiratory Rate 19 Breaths/Min Oxygen Saturation 99 % 11/29/2018 23:00 EDT Systolic Blood Pressure 108 mmHg Diastolic Blood Pressure 55 mmHg LOW Mean Arterial Pressure (MAP)-BMDI 75 Heart Rate Monitored 60 bpm Respiratory Rate 21 Breaths/Min HI Oxygen Saturation 99 % Oxygen Therapy Mode Room air 11/29/2018 22:30 EDT Heart Rate Monitored 62 bpm Respiratory Rate 28 Breaths/Min HI Oxygen Saturation 99 % 11/29/2018 22:00 EDT Systolic Blood Pressure 135 mmHg Diastolic Blood Pressure 89 mmHg Mean Arterial Pressure (MAP)-BMDI 104 Heart Rate Monitored 62 bpm Respiratory Rate 23 Breaths/Min HI Oxygen Saturation 97 % Oxygen Therapy Mode Room air 11/29/2018 21:30 EDT Systolic Blood Pressure 119 mmHg Diastolic Blood Pressure 57 mmHg LOW Mean Arterial Pressure (MAP)-BMDI 82 Heart Rate Monitored 63 bpm Respiratory Rate 23 Breaths/Min HI Oxygen Saturation 99 % 11/29/2018 21:00 EDT Heart Rate Monitored 64 bpm Respiratory Rate 21 Breaths/Min HI Oxygen Saturation 99 % Oxygen Therapy Mode Room air 11/29/2018 20:40 EDT Oxygen Saturation 98 % 11/29/2018 20:30 EDT Systolic Blood Pressure 126 mmHg Diastolic Blood Pressure 60 mmHg Mean Arterial Pressure (MAP)-BMDI 86 Heart Rate Monitored 63 bpm Respiratory Rate 20 Breaths/Min 11/29/2018 20:00 EDT Systolic Blood Pressure 126 mmHg Diastolic Blood Pressure 60 mmHg Mean Arterial Pressure (MAP)-BMDI 86 Temperature Source Oral Temperature Source Oral Temperature Mode Fahrenheit Temperature Mode Fahrenheit Temperature, Fahrenheit 99.1 Deg F Temperature, Fahrenheit 99.1 Deg F Clinical Temperature, C 37.3 Deg C Heart Rate Monitored 60 bpm Respiratory Rate 17 Breaths/Min Oxygen Saturation 99 % Oxygen Therapy Mode Room air 11/29/2018 19:30 EDT Systolic Blood Pressure 159 mmHg HI Diastolic Blood Pressure 69 mmHg Mean Arterial Pressure (MAP)-BMDI 99 Heart Rate Monitored 67 bpm Respiratory Rate 22 Breaths/Min HI Oxygen Saturation 88 % LOW 11/29/2018 19:00 EDT Systolic Blood Pressure 159 mmHg HI Diastolic Blood Pressure 69 mmHg Mean Arterial Pressure (MAP)-BMDI 99 Heart Rate Monitored 72 bpm Respiratory Rate 29 Breaths/Min HI Oxygen Saturation 98 % Oxygen Therapy Mode Room air 11/29/2018 18:00 EDT Systolic Blood Pressure 131 mmHg Diastolic Blood Pressure 63 mmHg Mean Arterial Pressure (MAP)-BMDI 90 Heart Rate Monitored 66 bpm Respiratory Rate 23 Breaths/Min HI Oxygen Saturation 100 % Oxygen Therapy Mode Room air 11/29/2018 17:00 EDT Systolic Blood Pressure 168 mmHg HI Diastolic Blood Pressure 110 mmHg HI Mean Arterial Pressure (MAP)-BMDI 129 Heart Rate Monitored 66 bpm Respiratory Rate 28 Breaths/Min HI Oxygen Saturation 100 % 11/29/2018 16:00 EDT Systolic Blood Pressure 151 mmHg HI Diastolic Blood Pressure 68 mmHg Mean Arterial Pressure (MAP)-BMDI 98 Temperature Source Oral Temperature Mode Fahrenheit Temperature, Fahrenheit 98.4 Deg F Clinical Temperature, C 36.9 Deg C Heart Rate Monitored 50 bpm LOW Respiratory Rate 17 Breaths/Min Oxygen Saturation 99 % Oxygen Therapy Mode Room air 11/29/2018 15:00 EDT Systolic Blood Pressure 140 mmHg Diastolic Blood Pressure 62 mmHg Mean Arterial Pressure (MAP)-BMDI 95 Heart Rate Monitored 50 bpm LOW Respiratory Rate 22 Breaths/Min HI Oxygen Saturation 99 % 11/29/2018 14:00 EDT Systolic Blood Pressure 190 mmHg HI Diastolic Blood Pressure 82 mmHg Mean Arterial Pressure (MAP)-BMDI 118 Heart Rate Monitored 57 bpm LOW Respiratory Rate 17 Breaths/Min Oxygen Saturation 100 % Oxygen Therapy Mode Room air 11/29/2018 13:00 EDT Systolic Blood Pressure 116 mmHg Diastolic Blood Pressure 59 mmHg LOW Mean Arterial Pressure (MAP)-BMDI 82 Heart Rate Monitored 57 bpm LOW Respiratory Rate 24 Breaths/Min HI Oxygen Saturation 100 % 11/29/2018 12:00 EDT Systolic Blood Pressure 102 mmHg Diastolic Blood Pressure 51 mmHg LOW Mean Arterial Pressure (MAP)-BMDI 73 Temperature Source Oral Temperature Mode Fahrenheit Temperature, Fahrenheit 97.9 Deg F Clinical Temperature, C 36.6 Deg C Heart Rate Monitored 51 bpm LOW Respiratory Rate 17 Breaths/Min Oxygen Saturation 100 % Oxygen Therapy Mode Room air 11/29/2018 11:00 EDT Systolic Blood Pressure 96 mmHg Diastolic Blood Pressure 61 mmHg Mean Arterial Pressure (MAP)-BMDI 71 Heart Rate Monitored 51 bpm LOW Respiratory Rate 15 Breaths/Min Oxygen Saturation 99 % 11/29/2018 10:00 EDT Systolic Blood Pressure 89 mmHg LOW Diastolic Blood Pressure 57 mmHg LOW Mean Arterial Pressure (MAP)-BMDI 68 Heart Rate Monitored 70 bpm Respiratory Rate 50 Breaths/Min HI Oxygen Saturation 99 % Oxygen Therapy Mode Room air 11/29/2018 9:00 EDT Systolic Blood Pressure 158 mmHg HI Diastolic Blood Pressure 70 mmHg Mean Arterial Pressure (MAP)-BMDI 100 Heart Rate Monitored 60 bpm Respiratory Rate 17 Breaths/Min Oxygen Saturation 99 % 11/29/2018 8:41 EDT Heart Rate, Apical 62 bpm 11/29/2018 8:27 EDT Oxygen Saturation 100 % Oxygen Therapy Mode Room air 11/29/2018 8:00 EDT Systolic Blood Pressure 191 mmHg HI Diastolic Blood Pressure 75 mmHg Mean Arterial Pressure (MAP)-BMDI 108 Temperature Source Oral Temperature Mode Fahrenheit Temperature, Fahrenheit 98.2 Deg F Heart Rate Monitored 59 bpm LOW Respiratory Rate 23 Breaths/Min HI 11/29/2018 7:00 EDT Systolic Blood Pressure 123 mmHg Diastolic Blood Pressure 61 mmHg Mean Arterial Pressure (MAP)-BMDI 85 Heart Rate Monitored 64 bpm Respiratory Rate 20 Breaths/Min 11/29/2018 6:00 EDT Systolic Blood Pressure 131 mmHg Diastolic Blood Pressure 61 mmHg Mean Arterial Pressure (MAP)-BMDI 88 Heart Rate Monitored 61 bpm Respiratory Rate 19 Breaths/Min Oxygen Saturation 97 % Oxygen Therapy Mode Room air 11/29/2018 5:00 EDT Systolic Blood Pressure 128 mmHg Diastolic Blood Pressure 62 mmHg Mean Arterial Pressure (MAP)-BMDI 88 Heart Rate Monitored 58 bpm LOW Respiratory Rate 17 Breaths/Min Oxygen Saturation 97 % 11/29/2018 4:00 EDT Systolic Blood Pressure 114 mmHg Diastolic Blood Pressure 58 mmHg LOW Mean Arterial Pressure (MAP)-BMDI 80 Temperature Source Oral Temperature Mode Fahrenheit Temperature, Fahrenheit 98.2 Deg F Heart Rate Monitored 68 bpm Respiratory Rate 28 Breaths/Min HI Oxygen Saturation 96 % Oxygen Therapy Mode Room air 11/29/2018 3:00 EDT Systolic Blood Pressure 136 mmHg Diastolic Blood Pressure 65 mmHg Mean Arterial Pressure (MAP)-BMDI 93 Heart Rate Monitored 67 bpm Respiratory Rate 19 Breaths/Min Oxygen Saturation 96 % 11/29/2018 2:00 EDT Systolic Blood Pressure 120 mmHg Diastolic Blood Pressure 56 mmHg LOW Mean Arterial Pressure (MAP)-BMDI 81 Heart Rate Monitored 58 bpm LOW Respiratory Rate 18 Breaths/Min Oxygen Saturation 96 % Oxygen Therapy Mode Room air 11/29/2018 1:00 EDT Systolic Blood Pressure 146 mmHg HI Diastolic Blood Pressure 63 mmHg Mean Arterial Pressure (MAP)-BMDI 90 Heart Rate Monitored 65 bpm Respiratory Rate 21 Breaths/Min HI Oxygen Saturation 97 % Oxygen Therapy Mode Room air 11/29/2018 0:00 EDT Systolic Blood Pressure 141 mmHg HI Diastolic Blood Pressure 63 mmHg Mean Arterial Pressure (MAP)-BMDI 90 Temperature Source Oral Temperature Mode Fahrenheit Temperature, Fahrenheit 97.9 Deg F Heart Rate Monitored 68 bpm Respiratory Rate 23 Breaths/Min HI Oxygen Saturation 96 % Oxygen Therapy Mode Room air . Measurements 11/30/2018 16:16 EDT Height Source Stated Height Entry Format [place] Height/Length, RUSSIAN (ft) 5 ft Height/Length RUSSIAN 7 Inch CLINICALHEIGHT 170.18 cm [place] Body Weight 65.16 kg Weight Source, ED Standing scale Weight Entry Format Richardson Weight [place] lb 148.4 lb CLINICALWEIGHT 67.45 kg Body Surface Area (BSA) 1.78 m2 Body Mass Index 23.3 kg/m2 . Oxygen Saturation 11/30/2018 16:16 EDT Oxygen Saturation 97 % 11/30/2018 12:50 EDT Oxygen Saturation 100 % 11/30/2018 12:00 EDT Oxygen Saturation 99 % 11/30/2018 11:00 EDT Oxygen Saturation 100 % 11/30/2018 10:00 EDT Oxygen Saturation 100 % 11/30/2018 9:00 EDT Oxygen Saturation 100 % 11/30/2018 8:20 EDT Oxygen Saturation 100 % 11/30/2018 8:00 EDT Oxygen Saturation 100 % 11/30/2018 7:00 EDT Oxygen Saturation 100 % 11/30/2018 6:00 EDT Oxygen Saturation 99 % 11/30/2018 5:12 EDT Oxygen Saturation 99 % 11/30/2018 4:00 EDT Oxygen Saturation 99 % 11/30/2018 3:00 EDT Oxygen Saturation 99 % 11/30/2018 2:00 EDT Oxygen Saturation 99 % 11/30/2018 1:00 EDT Oxygen Saturation 99 % 11/30/2018 0:00 EDT Oxygen Saturation 98 % 11/29/2018 23:30 EDT Oxygen Saturation 99 % 11/29/2018 23:00 EDT Oxygen Saturation 99 % 11/29/2018 22:30 EDT Oxygen Saturation 99 % 11/29/2018 22:00 EDT Oxygen Saturation 97 % 11/29/2018 21:30 EDT Oxygen Saturation 99 % 11/29/2018 21:00 EDT Oxygen Saturation 99 % 11/29/2018 20:40 EDT Oxygen Saturation 98 % 11/29/2018 20:00 EDT Oxygen Saturation 99 % 11/29/2018 19:30 EDT Oxygen Saturation 88 % LOW 11/29/2018 19:00 EDT Oxygen Saturation 98 % 11/29/2018 18:00 EDT Oxygen Saturation 100 % 11/29/2018 17:00 EDT Oxygen Saturation 100 % 11/29/2018 16:00 EDT Oxygen Saturation 99 % 11/29/2018 15:00 EDT Oxygen Saturation 99 % 11/29/2018 14:00 EDT Oxygen Saturation 100 % 11/29/2018 13:00 EDT Oxygen Saturation 100 % 11/29/2018 12:00 EDT Oxygen Saturation 100 % 11/29/2018 11:00 EDT Oxygen Saturation 99 % 11/29/2018 10:00 EDT Oxygen Saturation 99 % 11/29/2018 9:00 EDT Oxygen Saturation 99 % 11/29/2018 8:27 EDT Oxygen Saturation 100 % 11/29/2018 6:00 EDT Oxygen Saturation 97 % 11/29/2018 5:00 EDT Oxygen Saturation 97 % 11/29/2018 4:00 EDT Oxygen Saturation 96 % 11/29/2018 3:00 EDT Oxygen Saturation 96 % 11/29/2018 2:00 EDT Oxygen Saturation 96 % 11/29/2018 1:00 EDT Oxygen Saturation 97 % 11/29/2018 0:00 EDT Oxygen Saturation 96 % . General: Alert, no acute distress. [place] coma scale: Eye response: 4 /4, verbal response: 5 /5, motor response: 6 /6, Total score: Total score: 15. Neurological: Alert and oriented to person, place, time, and situation, No focal neurological deficit observed, normal sensory observed, normal motor observed, normal speech observed, normal coordination observed. Skin: Warm, dry, pink, intact, no rash, normal for ethnicity. Head: Normocephalic, atraumatic. Neck: Supple, trachea midline, no tenderness. Eye: Pupils are equal, round and reactive to light, extraocular movements are intact, normal conjunctiva. Ears, nose, mouth and throat: Oral mucosa moist, no pharyngeal erythema or exudate. Cardiovascular: Regular rate and rhythm, No murmur, Normal peripheral perfusion, No edema. Respiratory: Lungs are clear to auscultation, respirations are non-labored, breath sounds are equal. Gastrointestinal: Soft, Nontender, Non distended, Normal bowel sounds. Back: Normal range of motion. Musculoskeletal: Normal ROM, normal strength. Psychiatric: Cooperative, appropriate mood & affect, normal judgment. Medical Decision Making Differential Diagnosis: Confusion, cerebral vascular accident, transient ischemic attack, hypoglycemia, urinary tract infection, pneumonia, dehydration, electrolyte imbalance. Documents reviewed: Emergency department nurses' notes. Orders Include Previous Orders (Selected) Inpatient Orders Ordered ED Fall Risk Documented: EKG: Normal Saline Bolus: 1,000 mL, 1,000 mL/Hr, IV Piggyback, 1-Time Orthostatic Vital Signs: Ordered (Exam Completed) CR Chest 1 Vw Portable: Completed .Automated Differential: .Urinalysis Microscopic: :Glucose POC: Ammonia Level: CBC w/ Auto Diff: CMP Comprehensive Metabolic Panel: CTA Head: CTA Neck: Cardiac Monitoring: ED Adult Fall Risk Assessment: ED Adult Triage: ED Clinical Reconciliation: ED tube cleaner: Lactic Acid Level with Reflex if Indicated: Normal Saline Flush: 10 mL, IV Push, 1-Time POC Blood Glucose Monitoring: PT/INR Prothrombin Time: Pulse Oximetry Continuous Monitoring: Saline Lock Insert: Troponin I Ultra: Urinalysis w Microscopic if Indicated: iopamidol: 75 mL, IV Push, ADHOC. Electrocardiogram: Time 11/30/2018 16:29:00, rate 60, normal sinus rhythm, No ST changes, no ectopy, normal NC & QRS intervals, EP Interp. Results review: Lab results : Lab Results 11/30/2018 16:53 EDT Device Comment 1 11/30/2018 18:20 EDT Urine Type U CleanCatch Urine Color Yellow Urine Appearance Clear Urine Specific [place] 1.009 Urine pH Dipstick 5.5 LOW Urine Leukocyte Esterase Negative Urine Nitrite Negative Urine Protein Dipstick Trace Urine Glucose Dipstick Negative Urine Ketones Dipstick Negative Urine Urobilinogen Dipstick 0.2 EU/dL Urine Bilirubin Dipstick Negative Urine Blood Dipstick Negative Ur RBC 0-2 /HPF Ur WBC 0-2 /HPF Ur Mucous Trace Ur Renal Epithelial Cells 0-2 /HPF Ur Hyaline Casts 10-20 /LPF Ur Granular Casts 0-2 /LPF 11/30/2018 17:00 EDT Sodium Level 141 mmol/L Potassium Level 4.5 mmol/L Chloride Level 111 mmol/L Carbon Dioxide Level 25 mmol/L Anion Gap 10 Glucose Level 75 mg/dL Blood Urea Nitrogen 32 mg/dL HI Creatinine Level 1.70 mg/dL HI eGFR 48 mL/min/1.73m2 LOW eGFR NonAfrican 39 mL/min/1.73m2 LOW Bun/Creatinine 18.8 Calcium Level 9.3 mg/dL Protein Total 6.8 Gram/dL Albumin Level 3.8 Gram/dL Globulin 3.0 Gram/dL A/G Ratio 1.3 Bilirubin Total 0.5 mg/dL Alk Phos 73 Units/Liter AST 15 Units/Liter ALT 19 Units/Liter Ammonia Level 11.0 uMol/L Lactic Acid Level 0.5 mmol/L Troponin I Ultra <0.015 ng/mL WBC 8.9 K/uL RBC 3.84 Million/uL LOW Hgb 11.8 g/dL LOW Hct 35.3 % LOW MCV 91.9 fL MCH 30.7 pg MCHC 33.4 Gram/dL Platelet Count 162 K/uL LOW MPV 10.1 fL RDW 13.2 % Neut % 68.4 % Neut # 6.08 K/uL Lymph % 16.3 % LOW Lymph # 1.45 x10(3)/uL [place] % 13.0 % HI [place] # 1.15 K/uL HI Eos % 1.5 % Eos # 0.13 x10(3)/uL Baso % 0.2 % Baso # 0.02 x10(3)/uL Slide Review No IG# 0.05 x10(3)/uL IG% 0.60 % PT 11.0 Second(s) INR 1.0 11/30/2018 16:53 EDT Glucose POC2 73 mg/dL 11/30/2018 7:02 EDT Device Comment 1 Glucose POC2 108 mg/dL 11/29/2018 17:42 EDT Device Comment 1 11/29/2018 16:49 EDT Device Comment 1 11/29/2018 20:42 EDT Glucose POC2 175 mg/dL [place] 11/29/2018 17:42 EDT Glucose POC2 95 mg/dL 11/29/2018 16:49 EDT Glucose POC2 73 mg/dL 11/29/2018 11:43 EDT Device Comment 1 Glucose POC2 135 mg/dL [place] 11/29/2018 6:50 EDT Device Comment 1 Glucose POC2 115 mg/dL [place] 11/29/2018 4:47 EDT Sodium Level 142 mmol/L Potassium Level 4.3 mmol/L Chloride Level 112 mmol/L Carbon Dioxide Level 27 mmol/L Anion Gap 7 LOW Glucose Level 129 mg/dL [place] Blood Urea Nitrogen 24 mg/dL [place] Creatinine Level 1.30 mg/dL eGFR >60 mL/min/1.73m2 eGFR NonAfrican 54 mL/min/1.73m2 LOW Bun/Creatinine 18.5 Calcium Level 9.5 mg/dL WBC 8.6 K/uL RBC 4.45 Million/uL Hgb 13.6 g/dL Hct 42.1 % MCV 94.6 fL MCH 30.6 pg MCHC 32.3 Gram/dL Platelet Count 198 K/uL MPV 10.1 fL RDW 12.9 % Slide Review No . Radiology results: Radiology Results (Last 48 hours) [id number] -- 11/30/2018 16:15 CTA Head (11/30/2018 18:22) Result: CT NECK [...] majorbranches are also within normal limits.IMPRESSION: Unremarkable. . Impression and Plan Diagnosis Confusion - Admitting, Emergency medicine, Medical Fluctuating blood pressure - Admitting, Emergency medicine, Medical Calls-Consults - 11/30/2018 19:02:00 , MAGO ANGEL MD, phone call, recommends Have patient admitted to hospitalist for fluctuating blood pressure management and acute confusion. - 11/30/2018 19:06:00 , ROBERTO BROCK MD, phone call, recommends Agrees to admit patient into the hospital. Plan Condition: Stable. Disposition: Admit Admit/Transfer/Discharge: Place in Observation (Order): Start: 11/30/2018 19:19 EDT, Observation Reason: Fluctuating blood pressure, acute contusion, Unit type: Telemetry unit, Admitting: ROBERTO BROCK MD. Counseled: Patient, Family, Regarding diagnosis, Regarding diagnostic results, Regarding treatment plan, Patient indicated understanding of instructions. Electronically signed by Victor Manuel Alcala Conversion Executive Staff Assistant Cerner at 09/13/2022 4:29 PM CDT documented in this encounter Plan of Treatment Not on file documented as of this encounter Visit Diagnoses Not on filedocumented in this encounter
--- OUTSIDE RECORDS SUMMARY | 2024-11-24 18:05 | XMS_ITS | Encounter Summary ---
Author Organization [employer] ([place], [place], [place], [place]) Address [address] [place] [address] Care Team Providers Care Waste Treatment Operator Name Role Phone Unavailable Primary Care Provider Unavailabl e Encounter Details Date Type Department Care Team (Late st Contact Info) Description 01/08/2019 Transcribed Document [facility] Radiology [address] [place] [id number] Urszula Mccullough MD [facility] [address] [place] [address] Social History Tobacco Use Types Packs/Day Years Used Date Smoking Tobacco: Never Assessed Sex and Gender Information Value Date Recorded Sex Assigned at Male 11/21/2021 1:59 PM CDT Legal Sex Male 1:59 PM CDT Gender Identity Male 11/21/2021 1:59 PM CDT Sexual Orientation Not on file documented as of this encounter Miscellaneous Notes * Cerner Conversion Note - Urszula Mccullough MD - 01/08/2019 7:17 AM EDT Patient: NADER TOLENTINO Age: 78 Years Sex: Male : 1940 Admit Date 01/07/2019 07:08 Discharge Date 01/08/2019 Primary Care Provider SIMON AG MD-RICHARD Discharge Diagnosis Right direct anterior total hip arthroplasty Procedures SN - Proc - Procedure: Hip Total Anterior Approach (01/07/19 09:05:36) Reason for Hospitalization 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 Patient had failed all conservative measures. Patient was ultimately offered total hip arthroplasty. Risks, benefits, and alternatives to care were explained to the patient and written consent was obtained. Hospital Course Patient was taken to the operating room on date of admission where they underwent the aforementioned procedure without complication. They were then transferred to the floor for postoperative care including PT & OT, consultation of hospitalist for medical care, and discharge planning by nurse navigator Vital Signs T: 37.1 ??C TMIN: 36.5 ??C TMAX: 37.1 ??C HR: 72(Monitored) RR: 16 BP: 166/77 SpO2: 96% Oxygen Settings (Last) Oxygen Therapy Mode: Room air (01/08/19 02:31:00) Oxygen Flow Rate: 2 Liter/Min (01/07/19 09:40:00) Physical Exam Dressing is clean dry and secure. Leg lengths are grossly equal. Operative extremity is neurovascularly intact. Discharge Disposition Home with home health Discharge Follow Up JA THAKUR PA-ORT - 01/28/2019 13:45 Discharge Medications (16) Active aspirin 81 mg oral tablet 81 mg = 1 Tab, Oral, BID atorvastatin 20 mg, Oral, At Bedtime clopidogrel [...] Oral, Daily Vitamin D3 4,000 Units, Daily Code Status Start: 01/07/19 9:57:00 EDT, Full Code, Continuous Order Condition on Discharge Stable Consulting Physicians CARLOS FLOWERS MD-LEONOR DE LA ROSA MD-INT Current Diet Order Diet, Adult - Ordered -- Start: 01/07/19 9:57:00 EDT, Regular Diet, Isolation: Standard Precautions Patient Discharge Summary Orders Patient is to be weightbearing as tolerated. Patient should use a walker at all times for the initial 2 weeks in order to moderate level of activity. Patient may then transition from a walker to a cane at the discretion of physical therapy. Bilateral thigh-high NADIA hose should be worn 21+ hours per day for 6 weeks for DVT prophylaxis. Dressing should remain in place for 7-10 days during which time the patient may shower provided the margins of the dressing are intact. Dressing should be removed and incision left open to air. Any wound drainage should be reported orthopedic office.Continuous use of cold compression wrap as needed for pain and swelling Pending Labs In Process SENDOUT REPORT [id number], [id number], RT - Routine, 01/07/19 8:12:00 EDT Pathology Tissue Request [id number], [id number], 01/07/19 8:12:00 EDT, Collected, RT - Routine, 01/07/19 11:11:30 EDT, AMIE JUÁREZ, Histblaynech/enModus tech, Specimen Type: AP Specimen, Specimen Desc: Right femoral head Ordered CBC w/ Auto Diff Specimen Type: Blood, AM Draw collect, 01/08/19 4:00:00 EDT, Daily, For: 3 Day(s), Stop: 01/10/19 4:00:00 EDT, Nurse Collect BMP Basic Metabolic Panel Specimen Type: Blood, AM Draw collect, 01/08/19 4:00:00 EDT, Daily, For: 2 Day(s), Stop: 01/09/19 4:00:00 EDT, Nurse Collect Time Spent on Discharge 10 minutes documented in this encounter Plan of Treatment Not on file documented as of this encounter Visit Diagnoses Not on filedocumented in this encounter
--- OUTSIDE RECORDS SUMMARY | 2024-11-24 18:05 | XMS_ITS | Encounter Summary ---
Author Organization [employer] ([place], [place], [place], [place]) Address [address] [place] [address] Care Team Providers Care Chief Load Dispatcher Name Role Phone Unavailable Primary Care Provider Unavailabl e Encounter Details Date Type Department Care Team (Late st Contact Info) Description 11/30/2018 Transcribed Document [facility] Radiology 1 [place] [id number] Ashvin Irby MD [address] [place] [address] Social History Tobacco Use Types Packs/Day Years Used Date Smoking Tobacco: Never Assessed Sex and Gender Information Value Date Recorded Sex Assigned at Male 11/21/2021 1:59 PM CDT Legal Sex Male 1:59 PM CDT Gender Identity Male 11/21/2021 1:59 PM CDT Sexual Orientation Not on file documented as of this encounter Miscellaneous Notes * Cerner Conversion Note - Ashvin Irby MD - 11/30/2018 5:28 PM EDT Patient: NADER TOLENTINO Age: 78 Years Sex: Male : 1940 Admit Date 11/29/2018 07:34 Discharge Date 11/30/2018 14:13 Discharge Diagnosis Carotid stenosis 11/30/2018 I65.29 ICD-10-CM Procedures PROCEDURE: Left carotid stent with distal embolic filter. [1] Reason for Hospitalization Patient is a 78-year-old male who recently [...] by the patient who agreed to proceed. [2] Hospital Course 11/28 -Patient was admitted electively for above stated procedure. He tolerated the procedure well and was transferred to CTVU in stable condition. His post-op neurology evaluation was stable. 11/29 -Neurologically the patient was stable. He was noted to have been severely hypertensive overnight. After his morning medications was administered the patient had severe hypotension. The patient was kept in CTVU for observation 11/30 - The patient remained hemodynamically stable with adjustment of his coreg to 1/2 dose. He was set for D/C to home. Vital Signs T: 36.6 ??C TMIN: 36.6 ??C TMAX: 37.3 ??C HR: 60(Monitored) RR: 25 BP: 112/55 SpO2: 100% Oxygen Settings (Last) Oxygen Therapy Mode: Room air (11/30/18 12:50:00 EDT) Oxygen Flow Rate: 2 Liter/Min (11/28/18 20:10:00 EDT) Physical Exam GEN: A&Ox3, NAD CARD: RRR PULM: clear Right femoral percutaneous access: soft, no hematoma, no active bleeding, palpable femoral pulse NEURO: CN II-XII intact, no deficit appreciated [3] Discharge Disposition Home Discharge Follow Up Follow up with primary care provider - Within 2 to 3 days ASHVIN IRBY - Discharge Medications (14) Active aspirin 81 mg, Oral, [...] Vitamin D3 2,000 Int Units, Oral, Daily Code Status Start: 11/28/18 12:00:00 EDT, Full Code, Continuous Order Condition on Discharge Good Consulting Physicians MAGO ANGEL MD Current Diet Order Diet, Adult - Ordered -- Start: 11/29/18 16:55:00 EDT, Cardiac Diet, 60 gm carbs:[id number] murray Patient Discharge Summary Orders Discharge Activity: Discharge Activity: Activity as tolerated Diet: Discharge Diet: Resume usual diet as tolerated Wound/Incision Care Instructions: Keep operative site/wound clean and dry Showering/Bathing Instructions: May shower Pending Labs No Labs on Record [1] Operative Report; ASHVIN IRBY MD-RICHARD 11/28/2018 14:32 EDT [2] Operative Report; ASHVIN IRBY MD-RICHARD 11/28/2018 14:32 EDT [3] Surgical Progress Note; DILIP KING PA 11/30/2018 08:00 EDT documented in this encounter Plan of Treatment Not on file documented as of this encounter Visit Diagnoses Not on filedocumented in this encounter
--- OUTSIDE RECORDS SUMMARY | 2024-11-24 18:05 | XMS_ITS | Encounter Summary ---
Author Organization [employer] ([place], [place], [place], [place]) Address [address] [place] [address] Care Team Providers Care Chief Cloth Finishing Range Operator Name Role Phone Unavailable Primary Care Provider Unavailabl e Encounter Details Date Type Department Care Team (Late st Contact Info) Description 01/08/2019 Transcribed Document [facility] Family Medicine [facility] [place] [address] ProviderBrianne MD [address], [place] [id number] Social History Tobacco Use Types Packs/Day Years Used Date Smoking Tobacco: Never Assessed Sex and Gender Information Value Date Recorded Sex Assigned at Male 11/21/2021 1:59 PM CDT Legal Sex Male 1:59 PM CDT Gender Identity Male 11/21/2021 1:59 PM CDT Sexual Orientation Not on file documented as of this encounter Miscellaneous Notes * Cerner Conversion Note - Brianne ProviderMD - 01/08/2019 12:00 PM CDT Pain Assessment Entered On: 01/08/2019 15:37 EDT Performed On: 01/08/2019 12:57 EDT by Moira Evans RN Intervention Information: acetaminophen Performed by Moira Evans RN on 01/08/2019 11:57:00 EDT acetaminophen,1000mg Oral Pain Assessment Pain Assessment : Follow-up assessment Pain Scale Goal : 4 Pain Scale Used : 0-10 Scale Location : Hip, right Pain Improved by Intervention : Yes Moira Evans RN - 01/08/2019 15:37 EDT Pain Scale Intensity : 3 Moira Evans RN - 01/08/2019 15:37 EDT Image 4 - Images currently included in the form version of this document have not been included in the text rendition version of the form. documented in this encounter Plan of Treatment Not on file documented as of this encounter Visit Diagnoses Not on filedocumented in this encounter
--- OUTSIDE RECORDS SUMMARY | 2024-11-24 18:05 | XMS_ITS | Encounter Summary ---
Author Organization [employer] ([place], [place], [place], [place]) Address [address] [place] [address] Care Team Providers Care Director Traffic And Planning Name Role Phone Unavailable Primary Care Provider Unavailabl e Encounter Details Date Type Department Care Team (Late st Contact Info) Description 01/07/2019 Transcribed Document [facility] [place] [facility] [place] [address] ProviderBrianne MD [address], [place] [phone] Social History Tobacco Use Types Packs/Day Years Used Date Smoking Tobacco: Never Assessed Sex and Gender Information Value Date Recorded Sex Assigned at Male 11/21/2021 1:59 PM CDT Legal Sex Male 1:59 PM CDT Gender Identity Male 11/21/2021 1:59 PM CDT Sexual Orientation Not on file documented as of this encounter Miscellaneous Notes * Cerner Conversion Note - Brianne Kim MD - 01/07/2019 8:48 AM CDT Pain Assessment Entered On: 01/07/2019 10:30 EDT Performed On: 01/07/2019 10:13 EDT by JATINDER LYN RN Intervention Information: fentaNYL Performed by JATINDER LYN RN on 01/07/2019 09:43:00 EDT fentaNYL,25mcg IV Push,Left Hand,Pain (Moderate 4-6) Pain Assessment Pain Assessment : Follow-up assessment Pain Scale Goal : 4 Pain Scale Used : 0-10 Scale Pain Improved by Intervention : Yes JATINDER LYN RN - 01/07/2019 10:30 EDT Pain Scale Intensity : 3 JATINDER LYN RN - 01/07/2019 10:30 EDT Image 4 - Images currently included in the form version of this document have not been included in the text rendition version of the form. documented in this encounter Plan of Treatment Not on file documented as of this encounter Visit Diagnoses Not on filedocumented in this encounter
--- OUTSIDE RECORDS SUMMARY | 2024-11-24 18:05 | XMS_ITS | Encounter Summary ---
Author Organization [employer] ([place], [place], [place], [place]) Address [address] [place] [address] Care Team Providers Care Senior Data Developer Name Role Phone Unavailable Primary Care Provider Unavailabl e Encounter Details Date Type Department Care Team (Late st Contact Info) Description 01/07/2019 Transcribed Document [facility] Family Medicine [facility] [address] ProviderBrianne MD [address], [place] [id number] Social History Tobacco Use Types Packs/Day Years [...] Kim MD - 01/07/2019 7:55 AM CDT [facility] Main OR PACU Summary Primary Physician: JULIO RUSHING MD-ORT Finalized Date/Time: 01/07/19 10:48:18 Pt. Name: NADER TOLENTINO /Sex: 1940 Male Med Rec #: [id number] Physician: JULIO RUSHING MD-ORT Financial #: [id number] Pt. Type: I Room/Bed: 638/1 Admit/Disch: 01/07/19 07:08:00 - Institution: [facility] Main OR PACU I Case Times Entry 1 In PACU I 01/07/19 09:18:00 Ready for PACU 01/07/19 10:07:00 Discharge Discharge from PACU 01/07/19 10:40:00 I Last Modified By: JATINDER LYN RN 01/07/19 10:48:02 [facility] Main OR PACU I Case Times Audit 01/07/19 10:48:02 Nursing Staff Development Coordinator: BRANDEP Modifier: BRANDEP <+> 1 Discharge from PACU I 01/07/19 10:47:55 Nursing Staff Development Coordinator: BRANDEP Modifier: BRANDEP <+> 1 Ready for PACU Discharge [facility] Main OR PACU Acuity Entry 1 Start Time 01/07/19 10:07:00 Stop Time 01/07/19 10:40:00 Acuity Level [facility] PACU Acuity I Last Modified By: JATINDER LYN RN 01/07/19 10:48:17 Finalized By: JATINDER LYN RN Document Signatures Signed By: JATINDER LYN RN 01/07/19 10:48 Electronically signed by [facility] Conversion Junior Java Developer Cerner at 09/14/2022 12:18 PM CDT documented in this encounter Plan of Treatment Not on file documented as of this encounter Visit Diagnoses Not on filedocumented in this encounter
--- OUTSIDE RECORDS SUMMARY | 2024-11-24 18:05 | XMS_ITS | Clinical Summary ---
Author Organization [employer] ([place], [place], [place], [place]) Address [address] [place] [address] Care Team Providers Care Electrician Helper Automotive Name Role Phone Unavailable Primary Care Provider [...]
--- OUTSIDE RECORDS SUMMARY | 2024-11-24 18:05 | XMS_ITS | Encounter Summary ---
Author Organization [employer] ([place], [place], [place], [place]) Address [address] [place] [address] Care Team Providers Care Embedded Software Manager Name Role Phone Unavailable Primary Care Provider Unavailabl e Encounter Details Date Type Department Care Team (Late st Contact Info) Description 01/08/2019 Transcribed Document [facility] [place] Family Medicine [facility] [place] [address] ProviderBrianne MD [address] [place] [phone] Social History Tobacco Use Types Packs/Day Years Used Date Smoking Tobacco: Never Assessed Sex and Gender Information Value Date Recorded Sex Assigned at Male 11/21/2021 1:59 PM CDT Legal Sex Male 1:59 PM CDT Gender Identity Male 11/21/2021 1:59 PM CDT Sexual Orientation Not on file documented as of this encounter Miscellaneous Notes * Cerner Conversion Note - Brianne Kim MD - 01/08/2019 10:49 AM CDT Patient Education Materials Follows: Discharge Instructions for Anterior Total Hip Replacement [...] before and after changing the dressing. Activity: ?? You may put weight on your leg when you walk, unless your surgeon tells you not differently. Use your walker until the therapist or surgeon say you do not need it anymore. Continue your exercises from physical therapy. ?? Stay active, getting up every 1-2 hours, walk short distances, and increase how far you walk a little each week. No driving until cleared by your surgeon. ?? If your surgeon has ordered support hose, continue to wear them for 6 weeks in order to prevent blood clots. Remove them 1-2 times per day for about 30 minutes-1 hour. Check your skin for red or open areas under stockings. Thigh-high support hose can be bought online and at many pharmacies, be sure that compression is 15-20mmHg. ?? For swelling, prop up your leg above your heart. Apply cold therapy, 30 minutes on 30 minutes off with cloth or clothing between cold wrap and skin. General Instructions: ?? Increase fiber and protein intake. Drink 8-10 [...] your home health nurse or surgeon office. ?? Continue using your incentive spirometer to keep fever and lung infection away. Aim for 10 breaths every hour while you are awake. ?? Take pain medicine as needed, especially before therapy. ?? Let your doctors and dentist know you [...] or pain in your calf. A Fall: ?? You fall down, but don't have an obvious injury. Call 911: Sudden shortness of breath and/or chest pain You fall down and cannot get up Stroke signs and symptoms: Facial droop, uneven smile, arm numbness, arm weakness, slurred speech, difficulty speaking or understanding Last Revised July 2016 CALL FIRST! Unless you are experiencing life-threatening issues, call your surgeon's office or nurse navigator first, before going to the Emergency Department. Call your surgeon or nurse navigator if: ?? Your incision has increased swelling that does not get better with time, rest, and propping up your leg ?? Your incision has a foul smell or begins to open ?? You have a large amount of bleeding from incision ?? Your incision gets red, warm or increased drainage after 2 days ?? You have a fever over 101 degrees for more than 24 hours ?? You have increased swelling, redness, warmth or pain in your calf ?? You fall, but don't have an obvious injury ?? You have questions or cause for concern regarding your total joint replacement Call 911 if: ?? You have sudden chest pain or shortness of breath ?? You fall and cannot get up ?? Life-threatening signs or symptoms ?? Stroke signs and symptoms: Facial droop, uneven smile, arm numbness, arm weakness, slurred speech, difficulty speaking or understanding If you are a patient of Dr. Mccullough or Dr. Shields, call [phone] If you are a patient of Dr. Alfonso, call [phone] Nurse Navigator: Ariana Mccallum Office: [phone]; ; available during regular business hours documented in this encounter Plan of Treatment Not on file documented as of this encounter Visit Diagnoses Not on filedocumented in this encounter
--- OUTSIDE RECORDS SUMMARY | 2024-11-24 18:05 | XMS_ITS | Encounter Summary ---
Author Organization [employer] ([place], [place], [place], [place]) Address [address] [place] [address] Care Team Providers Care News Specialist Name Role Phone Unavailable Primary Care Provider Unavailabl e Encounter Details Date Type Department Care Team (Late st Contact Info) Description 01/08/2019 Transcribed Document [facility] [place] [facility] [place] [address] ProviderBrianne MD [address], [place] [phone] Social History Tobacco Use Types Packs/Day Years Used Date Smoking Tobacco: Never Assessed Sex and Gender Information Value Date Recorded Sex Assigned at Male 11/21/2021 1:59 PM CDT Legal Sex Male 1:59 PM CDT Gender Identity Male 11/21/2021 1:59 PM CDT Sexual Orientation Not on file documented as of this encounter Miscellaneous Notes * Cerner Conversion Note - Brianne Kim MD - 01/08/2019 10:58 AM CDT Stroke/Warfarin Instructions Entered On: 01/08/2019 10:59 EDT Performed On: 01/08/2019 10:58 EDT by Moira Evans RN Stroke/Warfarin Instructions Stroke/TIA Discharge Ins : N/A Warfarin Discharge Ins : N/A Moira Evans RN - 01/08/2019 10:58 EDT documented in this encounter Plan of Treatment Not on file documented as of this encounter Visit Diagnoses Not on filedocumented in this encounter
--- OUTSIDE RECORDS SUMMARY | 2024-11-24 18:05 | XMS_ITS | Encounter Summary ---
Author Organization [employer] ([place], [place], [place], [place]) Address [address] [place] [address] Care Team Providers Care Voice Intercept Technician Name Role Phone Unavailable Primary Care Provider Unavailabl e Encounter Details Date Type Department Care Team (Late st Contact Info) Description 11/30/2018 Transcribed Document [facility] [facility] [place] [address] ProviderBrianne MD [address] [place] [id number] Social History Tobacco Use Types Packs/Day Years [...] ProviderMD - 11/30/2018 4:15 PM CDT ED Triage Entered On: 11/30/2018 16:32 EDT Performed On: 11/30/2018 16:16 EDT by BLANCA MCCANN SOCIAL WORK PROGRAM COORDINATOR Triage Across the Room Triage Date/Time : 11/30/2018 16:30 EDT Chief Complaint : pt d/c from hospital at 13:00 today, per family pt disorieted, confused, not acting right, unsteady gait. BLANCA MCCANN RN - 11/30/2018 16:30 EDT DCP GENERIC CODE Tracking Acuity : 2 - Emergent Tracking Group : [facility] ED BLANCA MCCANN RN - 11/30/2018 16:30 EDT Mode of Arrival : Ambulatory Transported to ED by : Private vehicle To Room Via : Wheelchair Accompanied By : Daughter ED Vital Signs : Document Height & Weight : Document ED Allergies : Document ED Reason for Visit : Document BLANCA MCCANN RN - 11/30/2018 16:30 EDT Infectious Disease History Infectious Disease History : Chicken pox/Shingles, Influenza, Measles, Mumps Fever/Chills Last 48 Hours : No Travel To Regions with Travel Advisories : No Travel Outside [place] Within Last 30 Days : No Contact With Traveler to Advisory Region : No Tuberculosis Symptoms : None BLANCA MCCANN RN - 11/30/2018 16:30 EDT Vital Signs ED Temperature Source : Oral Temperature Mode : Fahrenheit Temperature, Fahrenheit : 98.9 Deg F Clinical Temperature, C : 37.2 Deg C Oxygen Therapy Mode : Room air Peripheral Pulse Rate : 60 bpm Respiratory Rate : 16 Breaths/Min Systolic Blood Pressure : 180 mmHg (HI) Diastolic Blood Pressure : 75 mmHg Oxygen Saturation : 97 % BLANCA MCCANN RN - 11/30/2018 16:30 EDT Allergy (As Of: 11/30/2018 16:32:27 EDT) Allergies (Active) NSAIDs Estimated Onset Date: Unspecified ; Reactions: Kidney disease ; Created By: JAX MENDEZ RN; Reaction Status: Active ; Category: Drug ; Substance: NSAIDs ; Type: Allergy ; Updated By: JAX MENDEZ RN; Reviewed Date: 11/30/2018 16:31 EDT Diagnosis Control ED (As Of: 11/30/2018 16:32:27 EDT) Problems(Active) Arthritis (SNOMED CT :6720517 ) Name of Problem: Arthritis ; Recorder: JAX MENDEZ RN; Confirmation: Confirmed ; Classification: Medical ; Code: [id number] ; Contributor System: [employer] ; Last Updated: 11/12/2018 8:30 EDT ; Life Cycle Date: 11/12/2018 ; Life Cycle Status: Active ; Vocabulary: SNOMED CT At risk for sleep apnea (IMO :25726407 ) Name of Problem: At risk for sleep apnea ; Recorder: SYSTEM, SYSTEM; Confirmation: Confirmed ; Classification: Medical ; Code: [id number] ; Last Updated: 11/12/2018 8:53 EDT ; Life Cycle Date: 11/12/2018 ; Life Cycle Status: Active ; Vocabulary: IMO Barretts esophagus (SNOMED CT :440842515 ) Name of Problem: Barretts esophagus ; Recorder: JAX MENDEZ RN; Confirmation: Confirmed ; Classification: Medical ; Code: [id number] ; Contributor System: [employer] ; Last Updated: 11/12/2018 8:23 EDT ; Life Cycle Date: 11/12/2018 ; Life Cycle Status: Active ; Vocabulary: SNOMED CT Cancer//left side of neck (SNOMED CT :7655624928 ) Name of Problem: Cancer//left side of neck ; Recorder: JAX MENDEZ RN; Confirmation: Confirmed ; Classification: Medical ; Code: [id number] ; Contributor System: [employer] ; Last Updated: 11/12/2018 8:54 EDT ; Life Cycle Date: 11/12/2018 ; Life Cycle Status: Active ; Vocabulary: SNOMED CT Carotid artery disease (SNOMED CT :7880576811 ) Name of Problem: Carotid artery disease ; Recorder: JAX MENDEZ RN; Confirmation: Confirmed ; Classification: Medical ; Code: [id number] ; Contributor System: [employer] ; Last Updated: 11/12/2018 8:54 EDT ; Life Cycle Date: 11/12/2018 ; Life Cycle Status: Active ; Vocabulary: SNOMED CT Cataract//extraction (SNOMED CT :572871960 ) Name of Problem: Cataract//extraction ; Recorder: JAX MENDEZ RN; Confirmation: Confirmed ; Classification: Medical ; Code: 076601735 ; Contributor System: [employer] ; Last Updated: 11/12/2018 8:26 EDT ; Life Cycle Date: 11/12/2018 ; Life Cycle Status: Active ; Vocabulary: SNOMED CT Diabetes mellitus type II (SNOMED CT :77067753 ) Name of Problem: Diabetes mellitus type II ; Recorder: JAX MENDEZ RN; Confirmation: Confirmed ; Classification: Medical ; Code: 34885592 ; Contributor System: [employer] ; Last Updated: 11/12/2018 8:23 EDT ; Life Cycle Date: 11/12/2018 ; Life Cycle Status: Active ; Vocabulary: SNOMED CT Disorder of prostate//cancer (SNOMED CT :09882023 ) Name of Problem: Disorder of prostate//cancer ; Recorder: JAX MENDEZ RN; Confirmation: Confirmed ; Classification: Medical ; Code: 34295803 ; Contributor System: [employer] ; Last Updated: 11/12/2018 8:29 EDT ; Life Cycle Date: 11/12/2018 ; Life Cycle Status: Active ; Vocabulary: SNOMED CT GERD - Gastro-esophageal reflux disease (SNOMED CT :2757485318 ) Name of Problem: GERD - Gastro-esophageal reflux disease ; Recorder: JAX MENDEZ RN; Confirmation: Confirmed ; Classification: Medical ; Code: [id number] ; Contributor System: [employer] ; Last Updated: 11/12/2018 8:27 EDT ; Life Cycle Date: 11/12/2018 ; Life Cycle Status: Active ; Vocabulary: SNOMED CT Hard of hearing (SNOMED CT :875040453 ) Name of Problem: Hard of hearing ; Recorder: JAX MENDEZ RN; Confirmation: Confirmed ; Classification: Medical ; Code: 589668533 ; Contributor System: [employer] ; Last Updated: 11/12/2018 8:25 EDT ; Life Cycle Date: 11/12/2018 ; Life Cycle Status: Active ; Vocabulary: SNOMED CT Hyperlipidemia (SNOMED CT :55652130 ) Name of Problem: Hyperlipidemia ; Recorder: JAX MENDEZ RN; Confirmation: Confirmed ; Classification: Medical ; Code: 75163483 ; Contributor System: [employer] ; Last Updated: 11/12/2018 8:24 EDT ; Life Cycle Date: 11/12/2018 ; Life Cycle Status: Active ; Vocabulary: SNOMED CT Hypertension (SNOMED CT :01345839 ) Name of Problem: Hypertension ; Recorder: JAX MENDEZ RN; Confirmation: Confirmed ; Classification: Medical ; Code: 13668207 ; Contributor System: [employer] ; Last Updated: 11/12/2018 8:23 EDT ; Life Cycle Date: 11/12/2018 ; Life Cycle Status: Active ; Vocabulary: SNOMED CT Kidney disease///stage 3 ([address] :824241331 ) Name of Problem: Kidney disease///stage 3 ; Recorder: JAX MENDEZ RN; Confirmation: Confirmed ; Classification: Medical ; Code: 747147737 ; Contributor System: [employer] ; Last Updated: 11/12/2018 8:30 EDT ; Life Cycle Date: 11/12/2018 ; Life Cycle Status: Active ; Vocabulary: SNOMED CT Renal calculus (SNOMED CT :077819645 ) Name of Problem: Renal calculus ; Recorder: JAX MENDEZ RN; Confirmation: Confirmed ; Classification: Medical ; Code: 566731825 ; Contributor System: [employer] ; Last Updated: 11/12/2018 8:42 EDT ; Life Cycle Date: 11/12/2018 ; Life Cycle Status: Active ; Vocabulary: SNOMED CT Right hip pain (SNOMED CT :49724146 ) Name of Problem: Right hip pain ; Recorder: JAX MENDEZ RN; Confirmation: Confirmed ; Classification: Medical ; Code: 98938668 ; Contributor System: [employer] ; Last Updated: 11/12/2018 8:30 EDT ; Life Cycle Date: 11/12/2018 ; Life Cycle Status: Active ; Vocabulary: SNOMED CT Right knee pain (SNOMED CT :05684620 ) Name of Problem: Right knee pain ; Recorder: JAX MENDEZ RN; Confirmation: Confirmed ; Classification: Medical ; Code: 01881352 ; Contributor System: [employer] ; Last Updated: 11/12/2018 8:31 EDT ; Life Cycle Date: 11/12/2018 ; Life Cycle Status: Active ; Vocabulary: SNOMED CT Thyroid disease (SNOMED CT :612105693 ) Name of Problem: Thyroid disease ; Recorder: JAX MENDEZ RN; Confirmation: Confirmed ; Classification: Medical ; Code: 792268489 ; Contributor System: [employer] ; Last Updated: 11/12/2018 8:24 EDT ; Life Cycle Date: 11/12/2018 ; Life Cycle Status: Active ; Vocabulary: SNOMED CT TIA (transient ischemic attack) 2013 and 05/2018 (SNOM[address] CT :653815642 ) Name of Problem: TIA (transient ischemic attack) 2013 and 05/2018 ; Recorder: JAX MENDEZ RN; Confirmation: Confirmed ; Classification: Medical ; Code: 326926472 ; Contributor System: [employer] ; Last Updated: 11/12/2018 8:25 EDT ; Life Cycle Status: Active ; Vocabulary: SNOMED CT Urinary //artifical urinary sphincter (SNOMED CT :508428425 ) Name of Problem: Urinary //artifical urinary sphincter ; Recorder: JAX MENDEZ RN; Confirmation: Confirmed ; Classification: Medical ; Code: 903009144 ; Contributor System: [facility] ; Last Updated: 11/12/2018 8:29 EDT ; Life Cycle Date: 11/12/2018 ; Life Cycle Status: Active ; Vocabulary: SNOMED CT Urinary catheter complication////DO NOT CATH///URINARY (SNOMED CT :6752260033 ) Name of Problem: Urinary catheter complication////DO NOT CATH///URINARY ; Recorder: JAX MENDEZ RN; Confirmation: Confirmed ; Classification: Medical ; Code: 6334614827 ; Contributor System: [facility] ; Last Updated: 11/12/2018 8:33 EDT ; Life Cycle Status: Active ; Vocabulary: SNOMED CT ; Comments: 11/12/2018 8:33 - JAX MENDEZ RN ARTIFICAL SPHINCTER Diagnoses(Active) Altered mental status Date: 11/30/2018 ; Diagnosis Type: Reason For Visit ; Confirmation: Complaint of ; Clinical Dx: Altered mental status ; Classification: Medical ; Clinical Service: Emergency medicine ; Code: PNED ; Probability: 0 ; Diagnosis Code: [id number] ED Height and Weight Height Source : Stated Height Entry Format : Delta Height, Feet : 5 ft(Converted to: 152 cm, 60 Inch) Height, Inches : 7 Inch(Converted to: 0 ft 7 Inch, 17.78 cm) Clinical Height : 170.18 cm Weight Source, ED : Standing scale Weight Entry Format : Delta Weight, Pounds : 148.4 lb Clinical Dosing Weight : 67.45 kg Body Surface Area (BSA) : 1.78 m2 Body Mass Index : 23.3 kg/m2 [place] Body Weight (IBW) : 65.16 kg BLANCA MCCANN RN - 11/30/2018 16:30 EDT Electronically signed by Victor Manuel Alcala Conversion Application Consultant Cerner at 09/13/2022 4:22 PM CDT documented in this encounter Plan of Treatment Not on file documented as of this encounter Visit Diagnoses Not on filedocumented in this encounter
--- OUTSIDE RECORDS SUMMARY | 2024-11-24 18:05 | XMS_ITS | Encounter Summary ---
Author Organization [employer] ([place], [place], [place], [place]) Address [address] [place] [address] Care Team Providers Care Supply And Distribution Manager Name Role Phone Unavailable Primary Care Provider Unavailabl e Encounter Details Date Type Department Care Team (Late st Contact Info) Description 01/07/2019 Transcribed Document [facility] Radiology [address] [place] [id number] Urszula Mccullough MD [facility] [place] [address] Social History Tobacco Use Types Packs/Day Years Used Date Smoking Tobacco: Never Assessed Sex and Gender Information Value Date Recorded Sex Assigned at Male 11/21/2021 1:59 PM CDT Legal Sex Male 1:59 PM CDT Gender Identity Male 11/21/2021 1:59 PM CDT Sexual Orientation Not on file documented as of this encounter Miscellaneous Notes * Cerner Conversion Note - Urszula Mccullough MD - 01/07/2019 10:02 AM EDT Patient: NADER TOLENTINO Age: 78 Years Sex: Male : 1940 *Operation Right anterior GARFIELD Indication for Surgery The patient has end-stage osteoarthritis of the above-mentioned hip. They have otherwise failed conservative measures and now present for total hip arthroplasty. The risks benefits and alternatives have been explained to the patient in detail and they have voiced their agreement. *Preoperative Diagnosis Osteoarthritis right hip *Postoperative Diagnosis Osteoarthritis right hip *Surgeon(s) Surgeon: Jamel Roller Mill Operator: Darrell *Procedure Narrative Patient was identified in the preoperative holding and the appropriate lower extremity was marked. They were transferred to operating theater, general anesthesia induced by the attending Anesthesia staff. The patient was given 2 g of Ancef and 1g of vancomycin for preop antibiotic prophylaxis as well as 1 g of intravenous tranexamic acid. Feet wrapped in Coban, placed in traction boots. The patient was then carefully positioned on the Mio table. The hip was then prepped and draped in the usual sterile fashion. Time-out was performed. Appropriate patient and operative extremity were confirmed. A standard 14 cm skin incision was made, 2 cm distal and lateral to the ASIS. Subcutaneous dissection carried down to the level of the TFL fascia. Fascia incised in line with the skin, reflected anteriorly off the TFL muscle belly. The interval between superior neck and the abductors were identified and reflected. Lateral femoral circumflex vessels were identified and cauterized. Rectus gently elevated off the anterior aspect of the femur and the inferior neck was exposed. Pericapsular fat was removed. Next, a standard L-shaped capsulotomy performed in line with the femoral neck. Anterior and posterior limbs were tagged and reflected. Capsule released medially off the calcar down to the level of the lesser trochanter. Next, with the hip in a slight amount of external rotation and gentle traction applied, the neck osteotomy was marked using preoperative templating and local landmarks. Osteotomy carried out in a napkin ring fashion. Residual femoral neck and head were then removed. Next, the acetabulum was exposed. Capsule was reflected. Labrum, pulvinar and other soft tissues were resected. Next, under fluoroscopic guidance, a series of hemispherical acetabular reamers were passed. [id number] ream, with an excellent bleeding cancellous bony bed. Good maintenance of anterior and posterior lala. We then impacted the appropriately sized cup under fluoroscopic guidance in approximately 40 degrees of abduction, 20 degrees of anteversion. We had an appropriate initial press-fit. We placed two bone screws both with excellent purchase. Acetabular osteophytes removed, if present. Cup was irrigated. Final liner impacted in place. We turned our attention to femoral exposure. A femoral hook placed proximal to gluteal sling. Leg was externally rotated, extended and adducted. Posterosuperior capsule reflected medially off the greater trochanter. Piriformis and capsule were released and the femoral hook was elevated. Next, a box osteotome used to remove lateral bone followed by canal finder. A chili pepper broach was used to set version parallel to the posterior cortex of the femur. Series of Accolade broaches were then passed. We passed sequentially larger broaches until we obtained good axial and rotational stability. Calcar planer passed over final broach. We trialed necks and heads. Stability, leg length and offset all tested at this point, found to be appropriate. Next, the proximal femur was again exposed and trials were removed. Final Accolade stem impacted into place. Position relative to final broach was assessed. We re-trialed heads and selected the above-mentioned ceramic head, which was impacted onto a clean and dry trunnion. Next, hip was reduced. Final fluoroscopic images were taken and saved. The wound was thoroughly irrigated with dilute Betadine lavage and normal saline. Pericapsular tissues infiltrated with a pain cocktail. 1 g vancomycin powder and 2 g topical tranexamic acid applied to the joint. The fascia was closed with #1 Stratafix. Skin closed in layers with Vicryl, Stratafix, and Dermabond. Wound was covered with an Aquacel dressing. Next, drapes were removed. Patient carefully transferred to a stretcher. Traction boots and Coban were removed. He was then extubated without incident, and taken to PACU in stable condition. All instruments, sponge and needle counts were correct at the end of the case. Drains/Packs Used None Anesthesia General endotracheal anesthesia *Estimated Blood Loss 300 mL *Findings Implants: Milena Trident 2 acetabular component: 52 mm 6.5 mm Acetabular screws: 2 Milena Accolade 2 femoral component: Size 9 132 neck angle Trident X3 acetabular liner: 36 mm neutral Biolox Delta ceramic femoral head: 36 mm +5 Reaming technique: [id number] Initial press-fit assessment: adequate Acetabular screws: 2 Acetabular osteophytes: superior Femoral osteotomy level: 15 mm above lesser trochanter Releases: piriformis, capsule Broach position relative to neck cut: flush Final implant position relative to final broach: same Stability: ER- 120 deg max IR- 70 Other: none *Specimen(s) Femoral head to pathology Complications None Technique Anterior GARFIELD Date of Service Date/Time of Service - Proc - Start Time: 01/07/19 07:55:00 (01/07/19 08:11:10) documented in this encounter Plan of Treatment Not on file documented as of this encounter Visit Diagnoses Not on filedocumented in this encounter
--- OUTSIDE RECORDS SUMMARY | 2024-11-24 18:05 | XMS_ITS | Encounter Summary ---
Author Organization [employer] ([place], [place], [place], [place]) Address [address] [place] [address] Care Team Providers Care Outreach Team Member Name Role Phone Unavailable Primary Care Provider Unavailabl e Encounter Details Date Type Department Care Team (Late st Contact Info) Description 01/07/2019 Transcribed Document [facility] [place] Medicine [facility] [place] [address] ProviderBrianne MD [facility] [place] [id number] Social History Tobacco Use Types Packs/Day Years Used Date Smoking Tobacco: Never Assessed Sex and Gender Information Value Date Recorded Sex Assigned at Male 11/21/2021 1:59 PM CDT Legal Sex Male 1:59 PM CDT Gender Identity Male 11/21/2021 1:59 PM CDT Sexual Orientation Not on file documented as of this encounter Miscellaneous Notes * Cerner Conversion Note - Brianne Kim MD - 01/07/2019 4:25 PM CDT Orthopedic Nurse Navigator Entered On: 01/07/2019 16:27 EDT Performed On: 01/07/2019 16:25 EDT by RICK PULIDO Rn-Ortho Nurse Navigator Orthopedic Nurse Navigator Assessment Attended Joint Academy : Yes Joint AcademyType : In person Joint Academy Date : 12/17/2018 EDT Joint Spark Tester Attended Academy : Yes Joint Spark Tester Name : daughterJulissa Type of Surgery : Anterior Hip Replacement, Right Does Patient Have a Walker? : No Walker/toilette Ordered for After Discharge : Yes Anticipated Discharge Plan : Home Health PT Anticipated Discharge Plan Comment : Patient plans to d/c home with the help of his daughter and [facility] Patient Completed RAPT Score : 7 RICK PULIDO Rn-Ortho Nurse Navigator - 01/07/2019 16:25 EDT Teaching/Learning Assessment Barriers To Learning : None evident Individuals Taught : Patient, Child Readiness to Learn : Cooperative Readiness to Learn : Demonstration, Explanation, Printed materials, Teach back method Education Comment : Incentive spirometry taught at [facility], patient verbalizes understanding, also via teach back RICK PULIDO Rn-Ortho Nurse Navigator - 01/07/2019 16:25 EDT Education Topics, Orthopedic Pre-Op Ortho Pre-Op Education Grid Ed-Assistive Devices : Verbalizes understanding DVT Prophylaxis : Verbalizes understanding Family Instructions : Verbalizes understanding Herbs/Supplement Instructions : Verbalizes understanding Laboratory Studies : Verbalizes understanding Medication Instructions : Verbalizes understanding NPO : Verbalizes understanding Ed-Occupational Therapy : Verbalizes understanding Pain Management : Verbalizes understanding Physical Prep : Verbalizes understanding Physical Therapy : Verbalizes understanding Plan of Care : Verbalizes understanding Positioning : Verbalizes understanding Post-op Activity/Exercise Regimen : Verbalizes understanding Postoperative Home Needs : Verbalizes understanding Post-operative Monitoring : Verbalizes understanding Post-Op Orthopedic Equipment : Verbalizes understanding Procedure Information : Verbalizes understanding Respiratory Care : Verbalizes understanding Surgical Site : Verbalizes understanding Tubes/Drains/IV's : Verbalizes understanding Turn/Cough/Deep Breathe : Verbalizes understanding Weight Bearing : Verbalizes understanding Ed-Orthopedic Pre-Op, Other : Verbalizes understanding RICK PULIDO Rn-Ortho Nurse Navigator - 01/07/2019 16:25 EDT Electronically signed by Victor Manuel Alcala Conversion Seafood Process Worker Cerner at 09/14/2022 12:19 PM CDT documented in this encounter Plan of Treatment Not on file documented as of this encounter Visit Diagnoses Not on filedocumented in this encounter
--- OUTSIDE RECORDS SUMMARY | 2024-11-24 18:05 | XMS_ITS | Clinical Summary ---
Author Organization [facility] Address [address] [place] [address] Care Team Providers Care Nursing Tech Name Role Phone Oz Ramos MD Primary Care Provider [phone] John Joseph MD Unavailable [phone] Cheyenne Mitchell APRN, DEVI Unavailable [phone] Allergies Active Allergy Reactions Criticality Noted Date Comments Nsaids Unknown - Patient st ates they do not know rxn details,Nausea Low 03/01/2021 Renal Medications atorvastatin (Lipitor) 20 MG tablet Take 1 tablet by mouth nightly. 02/28/20 21 Active clopidogrel (Plavix) 75 MG tablet Take 1 tablet by mouth nightly. 02/09/20 21 Active omeprazole (PriLOSEC) [address] capsule Take 1 capsule by mouth nightly. 02/09/20 21 Active carvedilol (Coreg) 25 MG tablet Take 1 tablet by mouth 2 times a day. 02/28/20 21 Active aspirin 81 MG EC tablet Take 1 tablet by mouth daily. Active ipratropium (Atrovent) 0.06 % nasal spray Administer 2 sprays into each nostril 3 times a day as needed. 08/13/19 24 Active levothyroxine (Synthroid, Levoxyl) 100 MCG tablet Take 1 tablet by mouth daily before breakfast. 01/14/20 24 Active ferrous sulfate 324 (65 Fe) MG EC tablet Take 2 tablets by mouth daily with breakfast. Do not crush, chew, or split. Active valsartan (Diovan) 160 MG tablet Take 1 tablet (160 mg) by mouth 1 (one) time each day. 30 tablet 06/25/19 25 Active Additional Information Patient taking differently:160 mg Oral Daily, Held this AM, Reported on 11/19/2024 calcium acetate (Phoslo) 667 MG capsule Take 1 capsule (667 mg) by mouth in the morning and 1 capsule (667 mg) at noon and 1 capsule (667 mg) in the evening. Take with meals. 180 capsule 1 08/12/19 25 025 Active B complex-vitami n C-folic acid (Nephro-Jose J) 0.8 MG tablet Take 1 tablet by mouth daily. 90 tablet 3 08/12/19 25 026 Active calcitriol (Rocaltrol) 0.25 MCG capsule Take 1 capsule (0.25 mcg) by mouth daily. 90 capsule 3 08/12/19 25 026 Active NIFEdipine CC (Adalat CC) 60 MG 24 hr tablet Take 1 tablet (60 mg) by mouth daily before breakfast. Do not crush, chew, or split. 30 tablet 08/14/19 25 Active PreviDent 5000 Booster Plus 1.1 % paste APPLY A THIN RIBBON TO THE TOOTHBRUSH AND BRUSH THOROUGHLY ONCE DAILY 10/13/19 25 Active acetaminophen (Tylenol) 160 MG/5ML liquid Take 20.3 mL by mouth every 4 hours as needed for moderate pain. 120 mL 2 10/23/19 25 Active NIFEdipine CC (Adalat CC) 60 MG 24 hr tabletIndicati ons:ESRD (end stage renal disease) ([facility]) TAKE 1 TABLET BY MOUTH DAILY BEFORE BREAKFAST DO NOT CRUSH, CHEW, OR SPIT. 90 tablet 3 11/10/19 25 Active NIFEdipine CC (Adalat CC) 60 MG 24 hr tablet Take 1 tablet by mouth daily before breakfast. Do not crush, chew, or split. 90 tablet 09/09/19 25 025 Discontinued Active Problems Problem Noted Date Diagnosed Date Dysphagia, oropharyngeal 11/10/2024 ESRD (end stage renal disease) 08/13/2024 Kidney lesion, sokaogon, left 06/24/2024 CORY (acute kidney injury) 05/28/2024 Encounters Date Type Department Care Team Description 11/19/2024 10:30 AM EDT Office Visit [facility] Otolaryngology [address], [address]rd [place] [address] Yadiel Thornton MD 11/19/2024 Travel 11/17/2024 Telephone [facility] [address] [facility] 5th Floor [address] [place] [address] Carolee Gr MD 11/17/2024 Travel 11/11/2024 Telephone [facility] Multidisciplinary Oncology Clinic [address] [place] [phone] Pascale Everett 11/10/2024 Orders Only [facility] Otolaryngology [address] [facility] 3rd [place] [address] Margot Constantino History of radiation therapy (Primary Dx); History of squamous cell carcinoma; Dysphagia, unspecified type 11/07/2024 Refill [facility] [place] [id number] [place] [address] Carolee Gr MD ESRD (end stage renal disease) ([facility]) (Primary Dx) 11/06/2024 3:14 PM EDT - 11/06/2024 11:59 PM EDT Hospital Encounter [facility] [address] [place] [phone] Socorro Cameron MS CCC-ASSISTANT OFFICE MANAGER Dysphagia, oropharyngeal (Primary Dx); Dysphagia, unspecified type Discharge Disposition: Home or Self Care 11/06/2024 Travel 10/30/2024 10:50 AM EDT Office Visit [facility] Medicine Specialties [address], [address]nd [place] [address] Essence Nayak PA Pharyngeal dysphagia (Primary Dx) 10/30/2024 Travel 10/28/2024 Travel 10/26/2024 Telephone [facility] [address] [facility] 5th Floor [address] [place] [address] Carolee Gr MD 10/23/2024 Telephone [facility] Otolaryngology [address], 3rd [place] [phone] Rashmi Paige 10/22/2024 10:40 AM EDT Office Visit [facility] Comprehensive Vascular Clinic [address] 5th Floor [address] [place] [phone] Carolee Gr MD ESRD (end stage renal disease) ([facility]) 10/22/2024 8:34 AM EDT - 10/22/2024 11:59 PM EDT Hospital Encounter [facility] Vascular Lab [address] 5th Floor [address] [place] [address] ESRD (end stage renal disease) ([facility]) Discharge Disposition: Home or Self Care 10/22/2024 Travel 10/16/2024 Travel 10/13/2024 Orders Only [facility] Otolaryngology [address], 3rd [place] [phone] Margot Constantino Dysphagia, unspecified type (Primary Dx) 10/12/2024 11:59 AM EDT - 10/12/2024 11:59 PM EDT Hospital Encounter [facility] Ultrasound [address], [address]nd [place] [phone] Left renal mass Discharge Disposition: Home or Self Care 10/12/2024 Results Follow-Up [facility] Urology [address], 2nd [place] [phone] Ruben Ramsay MD 10/12/2024 Travel 10/09/2024 Travel 10/07/2024 1:34 PM EDT Anesthesia Event [facility] [address] [place] [address] Casie Baker MD Perry, Joseph D 10/07/2024 1:15 PM EDT - 10/07/2024 2:15 PM EDT Surgery [facility] [address] [place] [address] Yadiel Thornton MD SUSPENSION MICROLARYNGOSCOPY WITH LYSIS OF WEB, FLEXIBLE ESOPHAGOSCOPY WITH BALLOON DILATION 10/07/2024 11:21 AM EDT - 10/07/2024 1:10 PM EDT Hospital Encounter [facility] [address] [place] [address] Yadiel Thornton MD Dysphagia, unspecified type Discharge Disposition: Home or Self Care 10/07/2024 Travel 09/28/2024 Telephone Vascular Surgery [address] [place] [address] Ariel Gonzalez RN 09/28/2024 Telephone [facility] Ot[facility]ology [address], 3rd [place] [address] Rashmi Paige 09/25/2024 11:00 AM EDT Pre-Ad[facility] Testing [facility] [address], [address]st [place] [address] 09/25/2024 Travel 09/24/2024 1:40 PM EDT Consult [facility] Otolaryngology [address], 3rd [place] [address] Yadiel Thornton MD Dysphonia (Primary Dx); Dysphagia, unspecified; History of squamous cell carcinoma; History of radiation therapy 09/24/2024 Travel 09/15/2024 Telephone Vascular Surgery [address] [place] [phone] Ariel Gonzalez RN 09/11/2024 11:30 AM EDT Anesthesia Event [facility] [address] [place] [phone] Myke Murphy MD Woo, Melissa W, CRNA, DNP 09/11/2024 11:20 AM EDT - 09/11/2024 1:50 PM EDT Surgery [facility] [address] [place] [phone] Carolee Gr MD CREATION, AV FISTULA, OR AV GRAFT INSERTION, UPPER EXTREMITY [67916 (CPT )] 09/11/2024 9:07 AM EDT - 09/11/2024 2:48 PM EDT Hospital Encounter [facility] [address] [place] [address] Carolee Gr MD ESRD (end stage renal disease) ([facility]) (Primary Dx) Discharge Disposition: Home or Self Care 09/11/2024 Travel 09/07/2024 Travel 09/07/2024 Refill [facility] [address] [facility] 5th Floor [address] [place] [address] Carolee Gr MD 08/26/2024 12:45 PM EDT Office Visit Medical Office Building Urology [address] [facility], [address] [place] [phone] Ruben Ramsay MD Left renal mass (Primary Dx); Prostate cancer ([facility]) 08/26/2024 Travel from Last 3 Months Immunizations Immunization Administration Dates Next Due Influenza, High-dose, Split Virus, Trivalent, Injectable, preservative free 02/23/2016 Influenza, high-dose, quadrivalent 03/26/2023 Pneumococcal Conjugate PCV 13 01/07/2024 Family History Medical History Relation Name Comments Arthritis Father Nader Benign Essential Hypertension Mother Berna Hypertension Mother Berna Anesthesia problems Neg Hx Malig Hyperthermia Neg Hx Relation Name Status Comments Father Nader Mother Berna Social History Tobacco Use Types Packs/Day Years [...] in the past 12 m [facility], were you homeless or living [...] drink first t jeff in the morning (EYE-BDR) to steady your nerves or to get [...] on file Sexual Orientation Not on file Last Filed Vital Signs Vital Sign Reading Time Taken Comments Blood Pressure 144/69 11/19/2024 10:29 AM EDT Pulse 53 11/19/2024 10:29 AM EDT Temperature 36.5 C (97.7 F) 10/30/2024 10:19 AM EDT Respiratory Rate 10 10/07/2024 2:55 PM EDT Oxygen Saturation 95% 10/30/2024 10:19 AM EDT Inhaled Oxygen Concentration - - Weight 59.1 kg (130 lb 4.7 oz) 10/30/2024 10:19 AM EDT Height 180.3 cm (5' 11 ) 10/30/2024 10:19 AM EDT Body Mass Index 18.17 10/30/2024 10:19 AM EDT Plan of Treatment Upcoming Encounters Date Type Department Care Team (Late st Contact Info) Description 11/26/2024 10:00 AM EDT Office Visit [facility] [address] 5[address] Floor [address] [place] [address] Carolee Gr MD [address] [facility] [address] [place] [address] 05/03/2025 8:00 AM EST Appointment [facility] Ultrasound [address]nd [place] [address] 2025 1:00 PM EST Office Visit [facility] Otolaryngology [address], 3rd [place] [address] Yadiel Thornton MD [address] [place] [address] 05/13/2025 8:10 AM EST Office Visit [facility] Urology [address], 2nd [place] [address] Cheyenne Mitchell, CLAIMS ANALYST, DNP [address] [facility] [address] [place] [phone] Health Maintenance Due Date Last Done Comments [facility]-Medicare Annual Wellness (AWV) 1940 [facility]-Infant/Child/Adol SDOH Screenings 1940 Diabetes: Dental Exam 1952 [facility]-DTaP,Tdap,and Td Vaccines (1 - Tdap) 1961 [facility]-Zoster Vaccines (1 of 2) 1961 [facility]-RSV Vaccine: 60+ Years or (1 - 1-dose 75+ series) 2017 [id number] Vaccine ( season) 2024 09/06/2021, 02/01/2021, 08/03/2020, Additional history exists [facility]-Pneumococcal Vaccine: 50+ Years (2 of 2 - PPSV23) 03/03/2024 01/07/2024 [facility]-Diabetes: Hemoglobin A1C 11/25/2024 05/28/2024 [facility]- SDOH Screenings 12/17/2024 [facility]-Adult SDOH Screenings 12/17/2024 06/19/2024 [facility]-Influenza Vaccine (Season Ended) 2025 03/26/2023, 02/23/2016 [facility]-Depression Screening 10/30/2025 025, 10/30/2024, 09/18/2021 HPV Vaccines Aged Out No longer eligi ble based on patient's age to complete this topic [facility]-HIB Vaccines Aged Out No longer e ligible based on patient's age to complete this topic [facility]-Hepatitis A Vaccines Aged Out No longer eligible based on patient's age to complete this topic [facility]-IPV Vaccines Aged Out No longer e ligible based on patient's age to complete this topic [facility]-Rotavirus Vaccines Aged Out No lo nger eligible based on patient's age to complete this topic Procedures Procedure Name Priority Date/Time Associated Diagnosis Comments FL MODIFIED BARIUM SWALLOW Routine 11/06/2024 4:03 PM EDT Dysphagia, unspecified type VAS US HEMODIALYSIS ACCESS DUPLEX Routine 10/22/2024 9:42 AM EDT ESRD (end stage renal disease) ([facility]) US RENAL COMPLETE Routine 10/12/2024 12: 37 PM EDT Left renal mass POCT GLUCOSE METER UNSOLICITED RESULTS Routine 10/07/2024 2:39 PM EDT SURGICAL PATHOLOGY EXAM Routine 10/07/2024 2:23 PM EDT Dysphagia, unspecified type PB ANESTHESIA PLACEHOLDER Routine 10/07/2024 1:57 PM EDT WV AN ELECTIVE ENDOTRACHEAL AIRWAY Routine 10/07/2024 1:57 PM EDT LARYNGOSCOPY 10/07/2024 1:24 PM EDT Dysphagia, unspecified type DILATION, ESOPHAGUS 10/07/2024 1 :24 PM EDT Dysphagia, unspecified type BLOOD GAS PANEL, VENOUS STAT 10/07/2024 12:49 PM EDT POCT GLUCOSE METER UNSOLICITED RESULTS Routine 10/07/2024 12:33 PM EDT PB ANESTHESIA PLACEHOLDER Routine 09/11/2024 11:42 AM EDT W[place] AN ELECTIVE ENDOTRACHEAL AIRWAY Routine 09/11/2024 11:42 AM EDT WV CREAT AV FISTULA,AUTOGENOUS GRAFT 09/11/2024 11:16 AM EDT ESRD (end stage renal disease) ([facility]) PB POINT OF CARE IMAGING PLACEHOLDER Routine 09/11/2024 11:15 AM EDT BLOOD GAS PANEL, VENOUS STAT 09/11/2024 10:50 AM EDT HEMOGLOBIN A1C Add-On 05/28/2024 7:49 PM EST from Last 3 Months or Most Recently Relevant to Health Maintenance Results * FL Modified Barium Swallow (11/06/2024 [...] varying consistencies. Fluoroscopy Time: 2.9 minutes. [place] [facility] [place] CT 05/28/2024. FINDINGS: Swallowing: Penetration [...] varying consistencies. Fluoroscopy Time: 2.9 minutes. [place] [facility] [place]. Chest CT 05/28/2024. FINDINGS: Swallowing: Penetration [...] Thornton MD IMG FLUOROSCOPY PROCEDURES Final Result * VAS US Hemodialysis Access Left (10/22/2024 [...] Salma Dc MD on 10/23/2024 4:30 PM us Carolee Gr MD CV VASCULAR PROCEDURES Final Re sult * US Renal Complete (10/12/2024 12:37 PM [...] COMMUNICATION: Per this written report. Drafted by oXchilt Ly DO on 10/12/2024 1:28 PM Final report signed by Xochilt yL DO on 10/12/2024 1:47 PM Ruben Ramsay [place] [facility] [place] Final Result * (ABNORMAL) POCT glucose meter (10/07/2024 2:39 PM EDT) Only the most recent of2 resultswithin the time period is included. POCT Glucose 111(H) 74 - 99 mg/dL 10/07/2024 2:40 PM EDT [facility] Comment:Accuracy of a glucos e result [...] Comment 10/07/2024 2:40 PM EDT [facility] Order Packer ID Ester Mcwilliams 10/07/2024 2:40 PM EDT HEALTHCARE LAB Device ID [id number] 10/07/2024 2:40 PM EDT [facility]ALTH[facility]ARE [facility] Specimen Type POC Capillary 10/07/2024 2:40 PM EDT [facility] Blood Capillary blood specimen / Unknown 10/07/2024 2:39 PM EDT 10/07/2024 2:40 PM EDT us Yadiel Thornton MD LAB POINT OF CARE TE ST DOCKED DEVICE UNSOLICITED RESULTS Final Result [facility] [address] [place] [address] * Surgical Pathology Exam (10/07/2024 2:23 PM EDT) Case Report Surgical Pathology Case: [id number] Authorizing Provider: Yadiel Thornton MD Collected: 10/07/2024 1423 Ordering Location: [facility] Received: 10/07/2024 1625 Surgery Pathologist: Katina Funez MD Specimen: Larynx, post crycoid mucosa 10/09/2024 2:56 PM EDT [facility] Final Diagnosis A. POST CRYCOID MUCOSA, BIOPSY: - BENIGN SQUAMOUS EPITHELIUM WITH SUBEPITHELIAL EDEMA AND MILD CHRONIC INFLAMMATION 10/09/2024 2:56 PM EDT [facility] at 1456 EDT Clinical Information Dysphagia, unspecified type [R13.10] 10/09/2024 2:56 PM EDT [facility] Gross Description A. POST CRYCOID MUCOSA Received in formalin labeled p ost cricoid mucosa , is 1 pink-chapman soft tissue fragment measuring 0.7 cm in greatest dimension. Entirely submitted in cassette A1. Cold Time: <1m Michelle Neri 10/09/2024 2:56 PM EDT [facility] Note: A resident was involved in the service. I attest I examined the relevant preparations for the specimens and confirmed the diagnosis or interpretation. 10/09/2024 2:56 PM EDT [facility] Tissue Laryngeal structure / Unknown 10/07/2024 2:23 PM EDT 10/07/2024 4:25 PM EDT Comment:Pre-op diagnosis: Dysphagia, unspecified type [R13.10] us Yadiel Thornton MD LAB PATHOLOGY ORDERABLES Final R esult [facility] [address] [place] [address] * W[place] AN ELECTIVE ENDOTRACHEAL AIRWAY, PB ANESTHESIA PLACEHOLDER [...] type: endotracheal airway Successful airway: ETT and CATERING ATTENDANT Cuffed: yes Successful intubation technique: video laryngoscopy [...] Ultimately able to pass Bougie and 6.0 CATERING ATTENDANT tube passed over. Dentition in preoperative condition. us Casie Baker MD ANESTHESIA ORDERABLES Final R esult * (ABNORMAL) Blood gas, venous (10/07/2024 12:49 PM EDT) Only the most recent of2 resultswithin the time period is included. pH, Venous 7.35 7.32 - 7.43 LAB HEMATOLOGY METHOD 10/07/2024 12:57 PM EDT [facility] pCO2, Venous 60(HH) 40 - 55 mmHg LAB HEMATOLOGY METHOD 10/07/2024 12:57 PM EDT [facility] pO2, Venous 22(L) 25 - 40 mmHg LAB HEMATOLOGY METHOD 10/07/2024 12:57 PM EDT [facility] SO2, Measured, Venous 27(L) 65 - 80 % LAB HEMATOLOGY METHOD 10/07/2024 12:57 PM EDT [facility] Base Excess, Venous 6.0(H) -2.0 - 3.0 mmol/L LAB HEMATOLOGY METHOD 10/07/2024 12:57 PM EDT [facility] Bicarbonate, Calculated, Venous 33(H) 22 - 26 mmol/L LAB HEMATOLOGY METHOD 10/07/2024 12:57 PM EDT [facility] Hematocrit, Whole Blood 29.3(L) 40.0 - 51.0 % LAB HEMATOLOGY METHOD 10/07/2024 12:57 PM EDT [facility] Sodium, Whole Blood 145 136 - 145 mmol/L LAB HEMATOLOGY METHOD 10/07/2024 12:57 PM EDT [facility] Potassium, Whole Blood 4.4 3.6 - 4.9 mmol/L LAB HEMATOLOGY METHOD 10/07/2024 12:57 PM EDT [facility] Chloride, Whole Blood 103 97 - 107 mmol/L LAB HEMATOLOGY METHOD 10/07/2024 12:57 PM EDT [facility] Glucose, Whole Blood 117(H) 74 - 99 mg/dL LAB HEMATOLOGY METHOD 10/07/2024 12:57 PM EDT [facility] Lactate, Venous, Whole Blood 0.7 0.5 - 2.2 mmol/L LAB HEMATOLOGY METHOD 10/07/2024 12:57 PM EDT [facility] Ionized Calcium, Whole Blood 4.6 4.6 - 5.1 mg/dL LAB HEMATOLOGY METHOD 10/07/2024 12:57 PM EDT [facility] Blood Venous blood specimen / Unknown Venipuncture / Unknown 10/07/2024 12:49 PM EDT 10/07/2024 12:55 PM EDT us Casie Baker MD LAB BLOOD ORDERABLES Final Re sult [facility] [address] [place] [address] * [place] AN ELECTIVE ENDOTRACHEAL AIRWAY, PB ANESTHESIA PLACEHOLDER (09/11/2024 11:42 AM EDT) Narrative Brooke Adorno CRNA, DNP - 09/11/2024 11:42 AM EDT Brooke Adorno CRNA, DNP 09/11/2024 11:59 AM Airway Date/Time: 09/11/2024 11:42 AM Reason: elective Airway not difficult General Information and Staff Patient location during procedure: OR INSPECTOR AGRICULTURAL COMMODITIES: Brooke Adorno CRNA, DNP Performed: INSPECTOR AGRICULTURAL COMMODITIES Patient Condition Indications for airway management: anesthesia Patient position: sniffing Final Airway Details Final airway type: endotracheal airway Successful airway: ETT Cuffed: yes Successful intubation technique: direct laryngoscopy Adjuncts used in placement: intubating stylet Endotracheal tube insertion site: oral Blade: Everett Blade size: #2 ETT size (mm): 7.5 Cormack-Lehane Classification: grade I - full view of glottis Placement verified by: chest auscultation and capnometry Measured from: lips ETT to lips (cm): 22 Ventilation between attempts: BVM Other AttemptsUnsuccessful attempted airways: SGA Additional Comments Atraumatic. No change to dentition. 1st attempt LMA placement; unable to seat LMA for optimal ventilation; ETT placement successful with everett 2. O2 sats @ 100% throughout us Myke Murphy MD ANESTHESIA ORDERABLES E dited Result - Final * PB POINT OF CARE IMAGING PLACEHOLDER (09/11/2024 11:15 AM EDT) Narrative Casie Baker MD - 09/11/2024 11:15 AM EDT Casie Baker MD 09/11/2024 12:35 PM Peripheral Block Patient location during procedure: pre-op Start time: 09/11/2024 11:15 AM End time: 09/11/2024 11:20 AM Reason for block: post-op pain management Block is at surgeon's request Staffing Performed: Resident Anesthesiologist: Casie Baker MD Resident: Zachary Sánchez DO Preanesthetic Checklist Completed: patient identified, IV checked, site marked, risks and benefits discussed, surgical consent, monitors and equipment checked, pre-op evaluation and timeout performed Peripheral Block Patient position: supine Prep: ChloraPrep Patient monitoring: continuous pulse ox, heart rate and cardiac nurse specialist Block type: supraclavicular Laterality: left Injection technique: single-shot Guidance: ultrasound guided Ultrasound used for needle placement AND ultrasound image retained Needle Needle type: short-bevel Needle gauge: 21 G Needle length: 5 cm Needle localization: anatomical landmarks and ultrasound guidance Medications Administered 0.5% ropivacaine - Injection 20 mL - 09/11/2024 11:15:00 AM Assessment Injection assessment: negative aspiration for heme, local visualized surrounding nerve on ultrasound and incremental injection Paresthesia pain: none Heart rate change: no Slow fractionated injection: yes Additional Notes The patient was placed in a supine position. A linear ultrasound probe was placed on the lateral neck. The relevant neurovascular and muscle anatomy was identified for the supraclavicular block. A large area of skin encompassing the intended needle insertion site was cleansed using chloraprep. The skin was anesthetized by creating a skin wheal with lidocaine. The block needle was inserted through anesthetized skin and advanced from lateral to medial using an in-plane technique with ultrasound guidance. Local anesthetic was injected in 5 mL aliquots with incremental aspiration negative for heme. A total of 20cc of 0.50% Ropivacaine without adjunct was utilized for the block. The needle was removed from the patient. The patient tolerated the procedure well, with no obvious complications. us Casie Baker MD ANESTHESIA ORDERABLES Final R esult * (ABNORMAL) Hemoglobin A1c (05/28/2024 7:49 PM EST) Hemoglobin A1c 6.4(H) <5.7 % 05/29/2024 5:06 AM EST [facility] Blood Venous blood specimen / Unknown Venipuncture / Unknown 05/28/2024 7:49 PM EST 05/28/2024 7:55 PM EST Narrative [facility] - 05/29/2024 5:06 AM EST HA1C Interpretive Data: Diagnosis of Diabetes: Diabetic > or = 6.5% Pre-diabetic 5.7 to 6.4% Non-diabetic < or = 5.6% Glycemic Targets for Type I and Type II Diabetics: Non- Adults <7.0% Adults <6.0% Children and Adolescents <7.5% Source: [place] [employer]. Standards of medical care in diabetes,2017. Diabetes Care.2017:40 (suppl 1):S1-S135. HbA1c assay performed by an ion-exchange chromatography method that is certified traceable to the DCCT. us Teetee Palacio MD LAB BLOOD ORDERABLES Final Result [facility] [address] [place] [address] from Last 3 Months or Most Recently Relevant to Health Maintenance [place] [address] [facility] Advance Directives * Full Code (Latest Code Status on File) Date Activated Date Inactivated Comments 06/18/2024 10:59 PM 06/24/2024 6:54 PM Question Answer Comments Patient has decision-making capacity? Yes * Full Code Date Activated Date Inactivated Comments 05/28/2024 11:11 PM 06/04/2024 9:30 PM Question Answer Comments Patient has decision-making capacity? Yes Care Teams Nursing Tech Relationship Specialty Start Date End Date Oz Ramos MD [address] [place] [address] #1 #1 ELO Damian [id number] PCP - General 10/07/20 John Joseph MD [address] [place] [address] Consulting Physician Urology 02/04/23 Cheyenne Mitchell, CLAIMS ANALYST, DNP [address] [place] [address] Nurse Practitioner Urology 05/13/24
--- OUTSIDE RECORDS SUMMARY | 2024-11-24 18:05 | XMS_ITS | Encounter Summary ---
Author Organization [employer] ([place], [place], [place], [place]) Address [address] [place] [address] Care Team Providers Care Refrigeration Plant Operator Name Role Phone Unavailable Primary Care Provider Unavailabl e Encounter Details Date Type Department Care Team (Late st Contact Info) Description 11/30/2018 Transcribed Document [facility] [place] [address] [place] [address] ProviderBrianne MD [address] [id number] Social History Tobacco Use Types Packs/Day Years Used Date Smoking Tobacco: Never Assessed Sex and Gender Information Value Date Recorded Sex Assigned at Male 11/21/2021 1:59 PM CDT Legal Sex Male 1:59 PM CDT Gender Identity Male 11/21/2021 1:59 PM CDT Sexual Orientation Not on file documented as of this encounter Miscellaneous Notes * [employer]ner Conversion Note - Historical ProviderMD - 11/30/2018 5:00 AM CDT Chart Check - Review Order Profile Entered On: 11/30/2018 4:45 EDT Performed On: 11/30/2018 5:00 EDT by Isela Nevarez, RN Chart Check Powerplans Initiated/Discontinued as Appropriate : Yes All Active Orders Reviewed : Yes Isela Nevarez RN - 11/30/2018 4:44 EDT Electronically signed by Victor Manuel Alcala Conversion [employer] Barrel Assembly Cleaner Alpesh at 09/14/2022 12:16 PM CDT documented in this encounter Plan of Treatment Not on file documented as of this encounter Visit Diagnoses Not on filedocumented in this encounter
--- OUTSIDE RECORDS SUMMARY | 2024-11-24 18:06 | XMS_ITS | Encounter Summary ---
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 Name Role Phone Unavailable Primary Care Provider Unavailabl e Encounter Details Date Type Department Care Team (Late st Contact Info) Description 11/12/2018 Transcribed Document [facility] [place] [address] [place] [address] ProviderBrianne MD [address] [place] [address] Social History Tobacco Use Types Packs/Day Years Used Date Smoking Tobacco: Never Assessed Sex and Gender Information Value Date Recorded Sex Assigned at Male 11/21/2021 1:59 PM CDT Legal Sex Male 1:59 PM CDT Gender Identity Male 11/21/2021 1:59 PM CDT Sexual Orientation Not on file documented as of this encounter Miscellaneous Notes * [employer]ner Conversion Note - Brianne ProviderMD - 11/12/2018 8:46 AM CDT PAT Adult Entered On: 11/12/2018 8:53 EDT Performed On: 11/12/2018 8:46 EDT by JAX MENDEZ RN Vital Measurements Temperature Source : Temporal artery scanning Temperature Mode : Fahrenheit Temperature, Fahrenheit : 97.8 Deg F Clinical Temperature, C : 36.6 Deg C Peripheral Pulse Rate : 56 bpm (LOW) Respiratory Rate : 18 Breaths/Min Systolic Blood Pressure : 208 mmHg (HI) Diastolic Blood Pressure : 90 mmHg JAX MENDEZ RN - 11/12/2018 8:46 EDT Vital Measurements Comment : left 208/90 right 208/90...Dr. Miles notified appt with dr. michael SOSA at 300 JAX MENDEZ RN - 11/12/2018 8:55 EDT Oxygen Saturation : 100 % Oxygen Therapy Mode : Room air JAX MENDEZ RN - 11/12/2018 8:46 EDT Pain Assessment Pain Assessment : Initial assessment Pain Scale Goal : 3 Pain Scale Used : 0-10 Scale Location : Hip, right, Knee, right JAX MENDEZ RN - 11/12/2018 9:25 EDT Height and Weight, Clinical Dosing Height Source : Measured Height Entry Format : [place] Height, Feet : 5 ft(Converted to: 152 cm, 60 Inch) Height, Inches : 11 Inch(Converted to: 0 ft 11 Inch, 27.94 cm) Clinical Height : 180.34 cm Weight Source : Standing scale Weight Entry Format : [place] Clinical Dosing Weight : 70 kg Weight, Pounds : 154 lb Body Surface Area (BSA) : 1.89 m2 Body Mass Index : 21.5 kg/m2 [place] Body Weight : 74 kg JAX MENDEZ RN - 11/12/2018 8:46 EDT Health Histories Smoking Status : Never (less than 100 in lifetime; none in last 30 days) Smokeless Tobacco Status : Never JAX MENDEZ RN - 11/12/2018 9:25 EDT Social History (As Of: 11/12/2018 09:27:07 EDT) Tobacco: Never (less than 100 in lifetime) Smoking Status. Never Smokeless Tobacco Status. (Last Updated: 11/12/2018 08:40:37 EDT by JAX MENDEZ, DAV) Alcohol: Alcohol Use History No. (Last Updated: 11/12/2018 08:40:43 EDT by JAX MENDEZ, RN) Substance Abuse: Drug Use Hx: No. Use in Last 12 Months: No. (Last Updated: 11/12/2018 08:40:51 EDT by JAX MENDEZ, RN) Home/Environment: Lives with Alone. Home equipment: Glucose monitoring. (Last Updated: 11/12/2018 08:41:45 EDT by JAX MENDEZ, RN) Infectious Disease History Infectious Disease History : Chicken pox/Shingles, Measles, Mumps Travel To Regions with Travel Advisories : No Travel Outside [place] Within Last 30 Days : No Contact With Traveler to Advisory Region : No Tuberculosis Symptoms : None JAX MENDEZ RN - 11/12/2018 9:25 EDT Anesthesia/Transfusion History Family History of Anesthesia Reaction : No prior transfusion(s) Blood Transfusion Acceptable to Patient : Yes Transfusion History : Prior anesthesia without reaction Family History of Anesthesia Reaction : None JAX MENDEZ RN - 11/12/2018 9:25 EDT Functional Assessment Functional ADL Evaluation Index EBN Bathing : Independent (2) Dressing : Independent (2) Toileting : Independent (2) Transferring Bed or Chair : Independent (2) Continence : Independent (2) Feeding : Independent (2) JAX MENDEZ RN - 11/12/2018 9:44 EDT ADL Index Score : 12 JAX MENDEZ RN - 11/12/2018 9:44 EDT Advance Directive Patient has Advance Directive *Q : Yes, Advance Directive not with the patient Advance Directive Type : Living will Copy Advance Directive Verified/on Chart : No Advance Directive Comment : inst to bring in JAX MENDEZ RN - 11/12/2018 9:44 EDT Psychosocial History Do You Have a History of the Following? : Patient denies history Currently in Unsafe Situation : No Tried to Harm Yourself in the Past? : No Thoughts of Harming/Killing Yourself : No JAX MENDEZ RN - 11/12/2018 9:25 EDT Teaching/Learning Assessment Barriers To Learning : None evident Individuals Taught : Patient, Child Readiness to Learn : Cooperative Readiness to Learn : Explanation, Printed materials JAX MENEDZ RN - 11/12/2018 9:44 EDT Education Topics, Periop Preadmission Perioperative Education Grid Arrival Time/Place : Verbalizes understanding CHG Preoperative Bathing/Cloths : Verbalizes understanding Infection Control : Verbalizes understanding IV's : Verbalizes understanding NPO Status/Directions : Verbalizes understanding Pain Management : Verbalizes understanding Postoperative Care Preparations : Verbalizes understanding Preprocedure Preparations : Verbalizes understanding Preprocedure Tests/Labs : Verbalizes understanding Remove Body Piercings : Verbalizes understanding Responsible Adult : Verbalizes understanding Take/Hold Medications Pre-Procedure : Verbalizes understanding JAX MENDEZ RN - 11/12/2018 9:44 EDT Responsible Adult Contact Information : Julissa sotelo JAX MENDEZ RN - 11/12/2018 9:44 EDT General Info Want Family/Rep/Phys Notified of Admit : No Emergency Contact #1 : Julissa briggs Emergency Contact #1 Emergency Contact #1 Relationship : daughter Emergency Contact #2 : none Emergency Contact #2 Phone Number : none Emergency Contact #2 Relationship : none Information Obtained From : Patient, Daughter Primary Language : Armenian Communication Barrier : None JAX MENDEZ RN - 11/12/2018 9:44 EDT Desmond Scale Desmond Sensory Perception : Slightly limited Desmond Moisture : Rarely moist Desmond Activity : Walks occasionally Desmond Mobility : Slightly limited Desmond Nutrition : Adequate Desmond Friction and Shear : No apparent problem Desmond Score : 19 JAX MENDEZ RN - 11/12/2018 9:44 EDT Sleep Apnea Risk Assmt Hx of [...] Sleep Apnea Risk Level Score : 4 JAX MENDEZ RN - 11/12/2018 8:46 EDT Pain Scale Intensity : 7 JAX MENDEZ RN - 11/12/2018 9:25 EDT Image 4 - Images currently included in the form version of this document have not been included in the text rendition version of the form. documented in this encounter Plan of Treatment Not on file documented as of this encounter Visit Diagnoses Not on filedocumented in this encounter
--- OUTSIDE RECORDS SUMMARY | 2024-11-24 18:06 | XMS_ITS | Encounter Summary ---
Author Organization [employer] ([place], [place], [place], [place]) Address [address] [place] [address] Care Team Providers Care Pastry Mixer Name Role Phone Unavailable Primary Care Provider Unavailabl e Encounter Details Date Type Department Care Team (Late st Contact Info) Description 01/08/2019 Transcribed Document [facility] [place] [facility] [place] [address] ProviderBrianne MD [address] [place] [phone] Social History Tobacco Use Types Packs/Day Years Used Date Smoking Tobacco: Never Assessed Sex and Gender Information Value Date Recorded Sex Assigned at Male 11/21/2021 1:59 PM CDT Legal Sex Male 1:59 PM CDT Gender Identity Male 11/21/2021 1:59 PM CDT Sexual Orientation Not on file documented as of this encounter Miscellaneous Notes * Cerner Conversion Note - Brianne Kim MD - 01/08/2019 5:03 PM CDT Nursing Discharge Summary Entered On: 01/08/2019 17:04 EDT Performed On: 01/08/2019 17:03 EDT by Moira Evans RN Discharge Documentation Discharge Date/Time : 01/08/2019 16:30 EDT Patient Disposition, General : Discharge Discharge To : Home with ambulatory/outpatient follow-up Mode Of Departure, General Discharge : Private vehicle Accompanied By, Discharge : Grandchild IV Discontinued : Yes Personal Belongings With Patient : Yes Prescriptions Given to Patient : Yes Discharge Instructions Reviewed With, Opportunity For Questions Given : 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 Patient and family verbalize understanding Moira Evans RN - 01/08/2019 17:03 EDT Electronically signed by Cari, [facility] Conversion Web Page Developer Cerner at 09/14/2022 12:18 PM CDT documented in this encounter Plan of Treatment Not on file documented as of this encounter Visit Diagnoses Not on filedocumented in this encounter
--- OUTSIDE RECORDS SUMMARY | 2024-11-24 18:06 | XMS_ITS | Encounter Summary ---
Author Organization [employer] ([place], [place], [place], [place]) Address [address] [place] [address] Care Team Providers Care Chief Marketing Officer Name Role Phone Unavailable Primary Care Provider Unavailabl e Encounter Details Date Type Department Care Team (Late st Contact Info) Description 01/08/2019 Transcribed Document [facility] [place] [facility] [place] [address] ProviderBrianne MD [address] [place], [place] [phone] Social History Tobacco Use Types Packs/Day Years Used Date Smoking Tobacco: Never Assessed Sex and Gender Information Value Date Recorded Sex Assigned at Male 11/21/2021 1:59 PM CDT Legal Sex Male 1:59 PM CDT Gender Identity Male 11/21/2021 1:59 PM CDT Sexual Orientation Not on file documented as of this encounter Miscellaneous Notes * Cerner Conversion Note - Brianne Kim MD - 01/08/2019 2:30 PM CDT Initial Discharge Planning Entered On: 01/08/2019 14:31 EDT Performed On: 01/08/2019 14:30 EDT by KATARINA BREWER RN-Crystal Inspector Initial Assessment I Previously Documented Living Environment : No qualifying data available. Living Situation : Home Patient Lives With : Alone Is the Patient a Caregiver at Home? : No Emergency Contact #1 : Julissa Diaz Emergency Contact #1 cell Emergency Contact #1 Relationship : daughter Emergency Contact #2 : none Emergency Contact #2 Phone Number : none Emergency Contact #2 Relationship : none Legal Guardian : Yes KATARINA BREWER RN-Crystal Inspector - 01/08/2019 14:30 EDT Initial Assessment II Sensory and Motor Deficits : None Current Home Treatments and Equipment : None, Cane, Crutches KATARINA BREWER RN-Crystal Inspector - 01/08/2019 14:30 EDT Discharge Needs I Anticipated Discharge Date : 01/08/2019 EDT Anticipated Discharge To, CM : Home with home health Current Home Treatment/Equipment : Current Home Treatment/Equipment No qualifying data available. Post Acute/Home Treatments : Bedside commode, Walker KATARINA BREWER RN-Crystal Inspector - 01/08/2019 14:30 EDT Discharge Needs II Professional Skilled Services : Professional Skilled Services No qualifying data available. Needs Assistance with Transportation : No Discharge Options Discussed with Patient : DME, Home Health KATARINA BREWER RN-Crystal Inspector - 01/08/2019 14:30 EDT Narrative Note Narrative Note : 78yo male pt s/p RTHA-direct anterior approach. Met with pt and friend at bedside to discuss DCP. FRW and BSC obtained from [facility]' and have beend elivered to pt's room. Referral sent to [facility] via [facility] and [facility]. No other CM needs identified. KATARINA BREWER RN-Crystal Inspector - 01/08/2019 14:30 EDT documented in this encounter Plan of Treatment Not on file documented as of this encounter Visit Diagnoses Not on filedocumented in this encounter
[2024-11-24] MEDS: TRANEXAMIC ACID 1,000 MG/10 ML VIAL 100 MG TP (18:17)
--- NOTE | 2024-11-24 18:25 | ED_ITS ---
<Statement entered by Cynthia Atkinson DO - 11/24/24 23:43> I was consulted by the JAYDE, and we discussed the complexity of the problems being addressed. I approved the treatment and management plan for this patient's care in the emergency department, thus performing a substantive portion of the medical decision making. I was present for Marsmumer george Atkinson DO Discharge Plan Disposition Patient Disposition: Home, Self-Care Prescriptions Prescriptions: No Action atorvastatin 20 mg tablet 20 mg PO HS lisinopril 20 mg tablet 20 mg PO DAILY mupirocin 2 % ointment 1 applic topical BID 14 Days Qty: 15 0RF glimepiride 2 mg tablet 4 mg PO DAILY omeprazole 40 mg capsule,delayed release(DR/EC) 40 mg PO HS clopidogrel 75 mg tablet 75 mg PO HS krill oil 500 mg capsule 1 cap PO DAILY mecobalamin (vitamin B12) 1,000 mcg tablet,disintegrating 1,000 mcg SUBLINGUAL DAILY cholecalciferol (vitamin D3) 2,000 unit capsule 4,000 unit PO DAILY aspirin [Adult Low Dose Aspirin] 81 mg tablet,delayed release (DR/EC) 81 mg PO DAILY chlorthalidone 25 mg tablet 25 mg PO DAILY levothyroxine 88 mcg tablet 88 mcg PO DAILY doxycycline hyclate 100 mg capsule 100 mg PO BID 14 Days Qty: 28 0RF vitamin B complex 1 EACH tablet 1 each PO DAILY carvedilol 25 MG tablet 25 mg PO BID amlodipine 5 mg tablet 5 mg PO DAILY Rx Instructions: take one tablet by mouth once daily oxybutynin chloride 5 mg tablet 5 mg PO BID allopurinol 100 mg tablet 200 mg PO DAILY coenzyme Q10 [Co Q-10] 100 mg Capsule 100 mg PO DAILY Lokelma 5 gram Powder In Packet 5 g PO DAILY ciprofloxacin HCl 500 mg tablet 500 mg PO DAILY Qty: 5 0RF Referrals Follow up/Referrals: Jared Ramos MD [Primary Care Provider, Medical] - See instructions Activity Restrictions/Add. Instructions Additional Instructions/Restrictions: Today you were evaluated in the emergency department. We were able to cauterize the area of bleeding, please keep the pressure dressing on the right shoulder until tomorrow morning. Please call dermatology office in the morning and advised them of your ED visit for the persistent bleeding. Return to the ED for worsening of condition. Clinical Impressions Clinical Impression: Bleeding from wound Instructions Patient Instructions: How to Care for a Surgical Wound Print Language Print Language: Togolese Discharge ED Provider: Cynthia Atkinson General Adult HPI General Chief complaint: Skin/Abscess/Foreign Body Stated complaint: place removed on right shoulder 11/23/24 bleeding Time Seen by Provider: 11/24/24 17:56 Mode of Arrival: Ambulatory Source of Information: Patient and Relative Description of Symptoms (Recalled from ER Triage Doc. 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 Daughter stat es patient is on Plavix. Patient is on HD, states he went today and was able to complete HD without any complications, hypertension noted upon arrival. Patient denies complaints. History of Present Illness HPI narrative: patient is a 84-year-old male PMHx CKD (on dialysis), HTN, CAD, GERD, TIA, DMT2, PAD who presents to the ED after having multiple areas of skin removed by his genetic counsellor yesterday for biopsy. He states that the area that was removed on his right shoulder has persistent slow bleeding. Related Data Home Medications ?Medication ?Instructions ?Recorded ?Confirmed clopidogrel 75 mg tablet 75 mg PO HS ANTIPLATELET/CAD 08/14/17 09/16/24 glimepiride 2 mg tablet 4 mg PO DAILY Diabetes 08/1409/16/24 krill oil 500 mg capsule 1 cap PO DAILY Supplement 09/16/24 mecobalamin (vitamin B12) 1,000 1,000 mcg sublingual D AILY 08/14/17 09/16/24 mcg disintegrating Supplement tablet,sublingual omeprazole 40 mg capsule,delayed 40 mg PO HS Acid Refl ux 08/14/17 09/16/24 release cholecalciferol (vitamin D3) 50 4,000 unit PO DAILY Flores pplement 10/31/17 09/16/24 mcg (2,000 unit) capsule aspirin 81 mg tablet,delayed 81 mg PO DAILY Heart Heal th/CAD 07/29/18 09/16/24 release (Adult Low Dose Aspirin) atorvastatin 20 mg tablet 20 mg PO HS Cholesterol 11/2409/16/24 vitamin B complex 1 each PO DAILY Supplement 1 06/30/18 09/16/24 lisinopril 20 mg tablet 20 mg PO DAILY Blood Pressur e 10/07/19 09/16/24 chlorthalidone 25 mg tablet 25 mg PO DAILY high blood 08/09/21 09/16/24 pressure/diuretic levothyroxine 88 mcg tablet 88 mcg PO DAILY thyroid 09/16/24 amlodipine 5 mg tablet 5 mg PO DAILY Blood Pressure 12/04/22 09/16/24 carvedilol 25 mg tablet 25 mg PO BID Blood Pressure 12/04/22 09/16/24 oxybutynin chloride 5 mg tablet 5 mg PO BID overactive bladder 12/04/22 09/16/24 allopurinol 100 mg tablet 200 mg PO DAILY Gout 3 09/16/24 coenzyme Q10 100 mg capsule (Co 100 mg PO DAILY Supple ment 12/05/22 09/16/24 Q-10) sodium zirconium cyclosilicate 5 5 g PO DAILY Suppleme nt 12/05/22 09/16/24 gram oral powder packet (Lokeldc) Previous Rx's ?Medication ?Instructions ?Recorded ciprofloxacin HCl 500 mg tablet 500 mg PO DAILY #5 tab s 12/05/22 doxycycline hyclate 100 mg capsule 100 mg PO BID infec tion 14 days 05/14/24 #28 caps mupirocin 2 % topical ointment 1 applic topical BID in fection 14 05/28/24 days #15 grams Allergies Allergy/AdvReac Type Severity Reaction Status Date / Time No Known Allergies Allergy Verified 09/16/24 09:32 [facility] Disclaimer: The information contained in this section may have been updated after the patient was seen, as this information can be updated by other users. Medical History Acute alteration in mental status Aorto-iliac disease Chronic kidney disease Dysplasia of toenail Dystrophia unguium Hypertension with goal to be determined Hypertensive emergency without congestive heart failure Hypertensive encephalopathy Ingrown nail Keratosis Occlusion of common femoral artery Persistent headaches Stenosis of both renal arteries Stenosis of carotid artery Transient ischemic attack Bilateral iliac artery stenosis Stenosis of right renal artery Kidney stone HLD (hyperlipidemia) GERD (gastroesophageal reflux disease) Cancer Type 2 diabetes mellitus Chronic kidney disease Hypertension TIA (transient ischemic attack) Surgical History History of cholecystectomy History of total right hip replacement Family History Other Cancer Hypertension Social History Smoking Status: Never smoker alcohol intake: never substance use type: denies use current occupational status: retired Travel in the last 8 weeks?: None household members: family housing: house Have you lived/traveled outside US in past 30 days?: No Contact w/someone who lives/traveled outside US past 30 days?: No Exposure to someone with infectious disease in past 14 days?: No Do you have a fever (greater than 100.4 F or 38 C)?: No Have you tested positive for COVID-19?: No Exposed to someone with COVID-19 in past 14 days?: No Do you have a sore throat?: No Do you have a cough?: No Do you have any weakness?: No Do you have any diarrhea?: No Are you experiencing any unusual bleeding?: No Do you have any muscle aches/pain?: No Do you have any abdominal pain?: No Are you experiencing loss of taste or smell?: No Other Medical History Have you received the Pneumonia Vaccine: Yes ROS Obtained: Yes Systems reviewed as appropriate & no additional complaints except as documented Physical Exam General General appearance: alert and in no apparent distress Head Head exam: atraumatic and normocephalic Eye Eye exam: Present normal appearance and PERRL ENT ENT exam: Present normal exam Neck Neck exam: Present normal inspection Chest Chest inspection: Present normal inspection and symmetric chest wall rise; Absent tenderness Respiratory Respiratory exam: Present normal lung sounds bilaterally Cardiovascular Cardiovascular exam: Present regular rate Abdominal Exam Abdominal exam: Present soft and normal bowel sounds; Absent tenderness Extremities Exam Extremities exam: Present normal inspection and full ROM Back Exam Back exam: Present normal inspection and full ROM Neurological Exam Neurological exam: Present alert and oriented X3 Psychiatric Psychiatric exam: Present normal affect and normal mood Skin Skin exam: Present warm and dry Medical Decision Making Medical Records Screening: Per USPSTF and CDC recommendations, given the prevalence of disease in our region, it is our hospital?s policy to screen for HIV and viral Hepatitis for all patients aged 18 and over and those with ongoing risk factors. Jovani Inquiry Pt receiving controlled substance: No Vital Signs: 11/24/24 18:03 11/24/24 18:03 11/24/24 18:31 Temperature 98.6 F Temperature Source Oral Pulse Rate 67 70 Pulse Rate [Left] 64 Respiratory Rate 16 22 15 Blood Pressure 200/63 H Blood Pressure [Right Arm] 207/108 H Blood Pressure Mean 124 Blood Pressure Mean [Right Arm] 141 Blood Pressure Source [Right Arm] Automatic Cuff 02 Sat by Pulse Oximetry 95 95 93 L Oxygen Delivery Method Room Air Room Air Room Air 11/24/24 18:46 11/24/24 19:01 11/24/24 19:06 Temperature Temperature Source Pulse Rate 66 68 63 Pulse Rate [Left] Respiratory Rate 17 22 19 Blood Pressure 215/70 H 214/71 H 199/68 H Blood Pressure [Right Arm] Blood Pressure Mean 121 115 111 Blood Pressure Mean [Right Arm] Blood Pressure Source [Right Arm] 02 Sat by Pulse Oximetry 95 96 98 Oxygen Delivery Method Room Air 11/24/24 19:10 11/24/24 19:16 11/24/24 19:20 Temperature Temperature Source Pulse Rate 70 67 74 Pulse Rate [Left] Respiratory Rate 18 18 19 Blood Pressure 210/72 H 204/68 H 211/68 H Blood Pressure [Right Arm] Blood Pressure Mean 115 113 115 Blood Pressure Mean [Right Arm] Blood Pressure Source [Right Arm] 02 Sat by Pulse Oximetry 97 98 95 Oxygen Delivery Method 11/24/24 19:31 11/24/24 19:40 11/24/24 19:50 Temperature Temperature Source Pulse Rate 74 71 70 Pulse Rate [Left] Respiratory Rate 20 22 13 Blood Pressure 201/73 H 219/73 H 202/64 H Blood Pressure [Right Arm] Blood Pressure Mean 122 121 112 Blood Pressure Mean [Right Arm] Blood Pressure Source [Right Arm] 02 Sat by Pulse Oximetry 95 95 96 Oxygen Delivery Method 11/24/24 20:00 11/24/24 20:10 11/24/24 20:25 Temperature Temperature Source Pulse Rate 73 74 76 Pulse Rate [Left] Respiratory Rate 19 18 13 Blood Pressure 197/81 H 202/62 H 199/74 H Blood Pressure [Right Arm] Blood Pressure Mean 114 108 115 Blood Pressure Mean [Right Arm] Blood Pressure Source [Right Arm] 02 Sat by Pulse Oximetry 95 Oxygen Delivery Method Orders (Tests/Meds): ED MEDICATIONS Discontinued Medications Generic Name Dose Route Start Last Admin Trade Name Freq PRN Reason Stop Dose Admin Carvedilol 25 mg 11/24/24 20:42 Carvedilol 25mg Tablet PO 11/24/24 20:43 ONCE ONE Tranexamic Acid 1,000 mg/ 260 mls @ 32.5 mls/hr 11/24/24 18:07 11/24/24 18:18 Sodium Chloride IV 11/24/24 18:08 Not Given ONCE ONE Tranexamic Acid 100 mg 11/24/24 18:30 11/24/24 18:17 Tranexamic Acid 1,000 Mg/10 Ml Vial TP 11/24/24 18:31 100 mg ONCE ONE Administration Medical Decision Narrative: In summary, patient is a 84-year-old male PMHx CKD (on dialysis), HTN, CAD, GERD, TIA, DMT2, PAD who presents to the ED after having multiple areas of skin removed by his genetic counsellor yesterday for biopsy. He states that the area that was removed on his right shoulder has persistent slow bleeding. He states that he has no additional complaints. Daughter is at bedside, she is changing his dressings, states that the right shoulder area is the only place that is bleeding. They have not contacted the dermatology office today. Denies fever, chills, headache, visual disturbances, chest pain, shortness of breath. Upon initial evaluation patient has a open area approximately the size of a quarter on his right shoulder, minimal bleeding noted. Initial dressing was removed, wound was cleaned, TXA applied to area. Upon reassessment, bleeding has slowed however still present. Attempted to apply pressure dressing, once p ressure dressing was left on for 30 to 45 minutes, dressing was removed and area was still bleeding. Surgicel applied. Patient is also noted to be hypertensive, has not taken his nighttime antihypertensives, will administer in the ED. Patient continues to deny any other complaints at this time. Surgicel did not stop the persistent bleeding from the area. I was able to cauterize the wound with the Bovie, bleeding stopped. We will continue to apply the pressure dressing. Advised patient and daughter to leave the pressure dressing on until the morning. Advised her to call dermatology office for [place] the morning for further directions. Discussed return to the ED for worsening of condition. Critical Care Critical Care Time Critical Care Time: No
[2024-11-24] MEDS: CARVEDILOL 25MG TABLET 25 MG PO (21:00)
== END 2024-11-24 21:08 | disposition home or self-care (01) ==
PROVIDERS: Emergency Provider Emergency Medicine; PCP Family Medicine
DX: L76.22 Postprocedural hemorrhage of skin and subcutaneous tissue following other procedure (principal); I10 Essential (primary) hypertension; Z48.817 Encounter for surgical aftercare following surgery on the skin and subcutaneous tissue; Z79.01 Long term (current) use of anticoagulants; Z86.73 Personal history of transient ischemic attack (TIA), and cerebral infarction without residual deficits
CPT/HCPCS: 99283

== ENCOUNTER 2024-12-07 22:03 | Emergency (ER) | payer MEDICARE, SELFPAY ==
--- OUTSIDE RECORDS SUMMARY | 2024-10-12 11:59 | XMS_ITS | Encounter Summary ---
Author Organization [facility] Address [address] [place] [address] Care Team Providers Care Medical Grade Shoemaker Name Role Phone Oz Ramos MD Primary Care Provider [phone] John Joseph MD Unavailable [phone] Cheyenne Mitchell APRN, DEVI Unavailable [phone] Reason for Referral * Imaging (Routine) - Closed Specialty Diagnoses / Procedures Referred By Contac t Referred To Contact Radiology Diagnoses Left renal mass Procedures US Renal Complete Ruben Ramsay MD [address] [address] Phone: tel: fax: Referral ID Status Reason Start Date Expiration Date Visits Re quested Visits Authorized [id number] Closed 08/26/2024 02/25/2026 1 1 Reason for Visit * Imaging (Routine) - Closed Specialty Diagnoses / Procedures Referred By Contac t Referred To Contact Radiology Diagnoses Left renal mass Procedures US Renal Complete Ruben Ramsay MD [address] [address] Phone: tel: fax: Referral ID Status Reason Start Date Expiration Date Visits Re quested Visits Authorized [id number] Closed 08/26/2024 02/25/2026 1 1 Encounter Details Date Type Department Care Team (Latest Contact Info) Description 10/12/2024 11:59 AM EDT - 10/12/2024 11:59 PM EDT Hospital Encounter [facility] Ultrasound [address] [place] [address] Left renal mass Discharge Disposition: [...] any time in the past 12 m [facility], were you homeless or living in a long-term (including now)? No 06/19/2024 CAGE ASSESSMENT Answer [...] drink first t jeff in the morning (EYE-COSMETIC CHEMIST) to steady your nerves or to get rid of a hangover? 0 06/18/2024 CAGE Questionnaire Score 0 025 Utilities Answer Date Recorded In the past 12 months has th e [employer], [employer], oil, or water [employer] threatened to shut off services in your [...] Upcoming Encounters Date Type Department Care Team (Latest Contact Info) Description 12/25/2024 7:30 AM EDT Hospital Encounter [facility] [address] [place] [address] Carolee Gr MD [address] [place] [address] 12/25/2024 7:30 AM EDT Anesthesia Event [facility] [address] [place] [address] Sun Dean PA [address] [place] [phone] 12/25/2024 7:30 AM EDT - 12/25/2024 10:00 AM EDT Surgery [facility] [address] [place] [address] Carolee Gr MD [address] [place] [address] REVISION, AV FISTULA, UPPER EXTREMITY [92682 (CPT )] 05/03/2025 8:00 AM EST Appointment [facility] Ultrasound [address] [place] [phone] 2025 1:00 PM EST [facility] [address], [address]rd [place] [address] Rudy Andersen MD [address] [place] [address] 05/13/2025 8:10 AM EST Office Visit [facility] Urology [address], [address] [place] [address] Cheyenne Mitchell, PSYCHOLOGICAL ANTHROPOLOGIST, DNP [address] [place] [address] Scheduled Procedures Name Priority Associated Diagnoses Date/Ti me REVISION, AV FISTULA OR GRAFT, UPPER EXTREMITY ESRD (end stage renal disease) ([facility]) 12/25/2024 7:30 AM EDT documented as of this encounter Procedures Procedure [...] Xochilt Ly DO on 10/12/2024 1:47 PM Ruben Ramsay MD [facility] PROCEDURES Final Result documented in this encounter Visit Diagnoses Diagnosis Left renal mass Unspecified disorder of kidney and ureter [facility]D (end stage renal disease) [facility]) End stage renal disease documented in this encounter Additional Health Concerns Assessment Noted Time PHQ-9 Depression Total Score: 0 08/27/19 25 12:37 PM EDT A fall risk assessment has been complete d for the patient 08/26/2024 12:38 PM EDT A Body Mass Index follow-up plan has been documented for the patient 09/25/2024 6:16 AM EDT documented as of this encounter Care Teams Medical Grade Shoemaker Relationship Specialty Start Date End Date Oz Ramos MD [address] [place] [address] [address] [place] [address] PCP - General 10/07/20 John Joseph MD [address] [place] [address] Consulting Physician Urology 02/04/23 Cheyenne Mitchell, ELIZABETH, DEVI [address] [place] [address] Nurse Practitioner Urology 05/13/24 documented as of this encounter
--- OUTSIDE RECORDS SUMMARY | 2024-10-22 08:34 | XMS_ITS | Encounter Summary ---
Author Organization [facility] Address [address] [place] [address] Care Team Providers Care Finger Lift Operator Name Role Phone Oz Ramos MD Primary Care Provider [phone] John Joseph MD Unavailable [phone] Cheyenne Mitchell APRN, DNP Unavailable [phone] Reason for Referral * Imaging (Routine) - Closed Specialty Diagnoses / Procedures Referred By Contac t Referred To Contact Cardiology Diagnoses ESRD (end stage renal disease) ([facility]) Procedures VAS US Hemodialysis Access Left Carolee Gr MD [address] [address] Phone: tel: fax: Referral ID Status Reason Start Date Expiration Date V isits Requested Visits Authorized [id number] Closed Perform Procedure 09/11/2024 03/13/2026 1 1 Reason for Visit * Imaging (Routine) - Closed Specialty Diagnoses / Procedures Referred By Contac t Referred To Contact Cardiology Diagnoses ESRD (end stage renal disease) ([facility]) Procedures VAS US Hemodialysis Access Left Carolee Gr MD [address] [address] Phone: tel: fax: Referral ID Status Reason Start Date Expiration Date V isits Requested Visits Authorized [id number] Closed Perform Procedure 09/11/2024 03/13/2026 1 1 Encounter Details Date Type Department Care Team (Latest Contact Info) Description 10/22/2024 8:34 AM EDT - 10/22/2024 11:59 PM EDT [facility] [address] [facility] 5th Floor [address], [address] [place] [address] ESRD (end stage renal disease) ([facility]) Discharge Disposition: Home or Self Care Social [...] any time in the past 12 m [facility], were you homeless or living in a intermediate (including now)? No 06/19/2024 CAGE ASSESSMENT Answer [...] drink first t jeff in the morning (EYE-MEASUREMENT TECHNICIAN) to steady your nerves or to [...] Hospital Encounter [facility] [address] [place] [address] Carolee Gr MD [address] [address] 12/25/2024 7:30 AM EDT Anesthesia Event [facility] [address] [place] [address] Sun Dean PA [address] [place] [address] 12/25/2024 7:30 AM EDT - 12/25/2024 10:00 AM EDT Surgery [facility] [address] [place] [address] Carolee Gr MD [address] [facility] [address] [place] [address] REVISION, AV FISTULA, UPPER EXTREMITY [96860 (CPT )] 05/03/2025 8:00 AM EST Appointment [facility] Ultrasound [address] [place] [address] 2025 1:00 PM EST [facility] [address], [address]rd [place] [address] Rudy Andersen MD [address] [facility] [address] [place] [address] 05/13/2025 8:10 AM EST [facility] [address], [address] [place] [address] Cheyenne Mitchell, PARKING METER SERVICER, DNP [address] [place] [address] Scheduled Procedures Name Priority Associated Diagnoses Date/Ti me REVISION, AV FISTULA OR GRAFT, UPPER EXTREMITY ESRD (end stage renal disease) ([facility]) 12/25/2024 7:30 AM EDT documented as of this encounter Procedures Procedure Name Priority Date/Time Associated Diagnosis Comments VAS US HEMODIALYSIS ACCESS DUPLEX Routine 10/22/2024 9:42 AM EDT ESRD (end stage renal disease) ([facility]) documented in this encounter Results * VAS [...] Diagnoses Diagnosis ESRD (end stage renal disease) ([facility]) End stage renal disease ESRD (end stage renal disease) ([facility]) End stage renal disease documented in this encounter Additional Health Concerns Assessment Noted Time PHQ-9 Depression Total Score: 0 08/27/19 25 12:37 PM EDT A fall risk assessment has been complete d for the patient 10/22/2024 10:29 AM EDT A Body Mass Index follow-up plan has been documented for the patient 10/22/2024 11:03 AM EDT documented as of this encounter Care Teams Finger Lift Operator Relationship Specialty Start Date End Date Oz Ramos MD [address] [place] [address] [address] [place] [address] PCP - General 10/07/20 John Joseph MD [address] [place] [address] Consulting Physician Urology 02/04/23 Cheyenne Mitchell, ELIZABETH, DNP [address] [place] [address] Nurse Practitioner Urology 05/13/24 documented as of this encounter
--- OUTSIDE RECORDS SUMMARY | 2024-10-22 10:40 | XMS_ITS | Encounter Summary ---
Author Organization [facility] Address [address] [place] [address] Care Team Providers Care Transfer Clerk Name Role Phone Oz Ramos MD Primary Care Provider [phone] John Joseph MD Unavailable [phone] Cheyenne Mitchell APRN [facility] Unavailable [phone] Reason for Visit * Reason Comments ESRD (end stage renal disease) * Consultation (Routine) - Closed Specialty Diagnoses / Procedures Referred By Contact Referred To Contact Vascular Surgery / Comprehensive Vascular Clinic Diagnoses ESRD (end stage renal disease) ([facility]) Carolee Gr MD [address] [facility] [address] [place] [address] Phone: tel:[phone] fax:[phone] [facility] [address] [place] [address] Phone: tel: fax: Referral ID Status Reason Start Date Expiration Date V isits Requested Visits Authorized [id number] Closed Specialty Services Required 09/11/2024 03/13/2026 1 1 Encounter Details Date Type Department Care Team (Latest Contact Info) Description 10/22/2024 10:40 AM EDT Office Visit [facility] [address] [place] [address] Carolee Gr MD [address] [place] [address] ESRD (end stage renal disease) ([facility]) Social History Tobacco Use Types [...] any time in the past 12 m [facility], were you homeless or living [...] drink first t jeff in the morning (EYE-BEET END SUPERVISOR) to steady your nerves or to get rid of a hangover? 0 06/18/2024 CAGE Questionnaire Score 0 025 Utilities Answer Date Recorded In the past 12 months has [employer], gas, oil, or water company threatened to [...] Date Noted ESRD (end stage renal disease) ([facility]) 08/13/2024 Kidney lesion, [place], left 06/24/2024 CORY (acute kidney injury) ([facility]) 05/28/2024 The following portions of [...] sensation and reflexes and motor intact Skin: [place], warm, well perfused Extremities: LUE with well-healed AVF and palpable thrill and palpable radial pulse Assessment/Plan In Summary: Nader Briggs is a 84 y.o. year old male who we saw today in clinic. I discussed the test interpretations and management with associated orders of the following medical conditions of: Problem List Items Addressed This Visit Genitourinary ESRD (end stage renal disease) ([facility]) We will see him back [...] Hospital Encounter [facility] [address] [place] [phone] Carolee Gr MD [address] [facility] [address] [place] [address] 12/25/2024 7:30 AM EDT Anesthesia Event [facility] [address] [place] [address] Sun Dean PA [address] [place] [address] 12/25/2024 7:30 AM EDT - 12/25/2024 10:00 AM EDT Surgery [facility] [place] [phone] Carolee Gr MD [address] [facility] [address] [place] [phone] REVISION, AV FISTULA, UPPER EXTREMITY [[id number] (CPT )] 05/03/2025 8:00 AM EST Appointment [facility] [address] [place] [address] 2025 1:00 PM EST Office Visit [facility] Otolaryngology [address] [place] [address] Rudy Andersen MD [address] [place] [address] 05/13/2025 8:10 AM EST Office Visit [facility] Urology [address] [place] [address] Cheyenne Mitchell APRN, DEVI [address] [place] [address] Scheduled Procedures Name Priority Associated Diagnoses Date/Ti me REVISION, AV FISTULA OR GRAFT, UPPER EXTREMITY ESRD (end stage renal disease) ([facility]) 12/25/2024 7:30 AM EDT documented as of this encounter Visit Diagnoses Diagnosis ESRD (end stage renal disease) ([facility]) End stage renal disease ESRD (end stage renal disease) ([facility]) End stage renal disease documented [...] documented as of this encounter Care Teams Transfer Clerk Relationship Specialty Start Date End Date Oz Ramos MD [address] [place] [address] [address] [place] [address] PCP - General 10/07/20 John Joseph MD [address] [place] [address] Consulting Physician Urology 02/04/23 Cheyenne Mitchell APRN, DNP [address] [place] [address] Nurse Practitioner Urology 05/13/24 documented as of this encounter
--- OUTSIDE RECORDS SUMMARY | 2024-10-30 10:50 | XMS_ITS | Encounter Summary ---
Author Organization [facility] Address [address] [place] [address] Care Team Providers Care Admitting Coordinator Name Role Phone Oz Ramos MD Primary Care Provider [phone] John Joseph MD Unavailable [phone] Cheyenne Mitchell APRN, DNP Unavailable [phone] Reason for Visit * Reason Comments Dysphagia, unspecified * Consultation (Routine) - Closed Specialty Diagnoses / Procedures Referred By Titi chinchilla Referred To Contact Gastroenterology Diagnoses Dysphagia Ben Dobbins MD [address] [facility] [address] [place] [address] Phone: tel: fax: Referral ID Status Reason Start Date Expiration Date V isits Requested Visits Authorized [id number] Closed Specialty Services Required 08/05/2024 02/04/2026 1 1 Encounter Details Date Type Department Care Team (Late st Contact Info) Description 10/30/2024 10:50 AM EDT Office Visit [facility] [address] [place] [address] Essence Nayak PA [address] [facility] [address] [place] [address] Pharyngeal dysphagia (Primary Dx) Social History Tobacco Use Types Packs/Day Years [...] time in the past 12 m [facility], were you homeless or living in a assisted (including now)? 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 0 06/18/2024 CAGE Questionnaire Score 0 025 Utilities Answer Date Recorded In the past 12 months has [employer] gas, oil, or water [employer] threatened to shut off services in your [...] Sign Reading Time Taken Comments Blood Pressure 145/54 10/30/2024 11:03 AM EDT Pulse 53 10/30/2024 10:19 AM EDT Temperature 36.5 C (97.7 F) 10/30/2024 10:19 AM EDT Respiratory Rate - - Oxygen Saturation 95% 10/30/2024 10:19 AM EDT Inhaled Oxygen Concentration - - Weight 59.1 kg (130 lb 4.7 oz) 10/30/2024 10:19 AM EDT Height 180.3 cm (5' 11 ) 10/30/2024 10:19 AM EDT Body Mass Index 18.17 10/30/2024 10:19 AM EDT documented in this encounter Functional Status * Over the past 2 weeks, how often have you been bothered by any of the following problems? Question Answer Date of Assessment Author Little interest or pleasure in doing things Not at all 10/30/2024 10:22 AM EDT Tom Scott Feeling down, depressed, or hopeless Not at all 10/30/2024 10:22 AM EDT Tom Scott Patient Health Questionnaire -2 Score 0 10/30/2024 10:22 AM EDT Tom Scott * Question Answer Date of Assessment Author Trouble falling or staying asleep, or sleeping too much Several days 10/30/2024 10:22 AM EDT Tom Scott a Feeling tired or having little energy Not at all 10/30/2024 10:22 AM EDT Tom Scott a Poor appetite or overeating Nearly every day 10:22 AM EDT Tom Scotta Feeling bad about yourself - or that you are a failure or have let yourself or your family down Not at all 10/30/2024 10:22 AM EDT Tom Scott a Trouble concentrating on things, such as reading the newspaper or watching television Not at all 10/30/2024 10:22 AM EDT Tom Scott a Moving or speaking so slowly that other people could have noticed? Or the opposite - being so fidgety or restless that you have been moving around a lot more than usual. Not at all 10/30/2024 10:22 AM EDT Tom Scott a Thoughts that you would be better off or hurting yourself in some way Not at all 10/30/2024 10:22 AM EDT Amado Scott Patient Health Questionnaire-9 Score 4 10/30/2024 10:22 AM EDT Rosita Scott iia * If you checked off any problems on this questionnaire so far, Question Answer Date of Assessment Author How difficult have these problems made it for you to do your work, take care of things at home, or get along with other people? Not difficult at all 10/30/2024 10:22 AM EDT Amado Scott ia * How difficult have these problems made it for you to do your work, take care of things at home, or get along with other people? Answer Date of Assessment Author Not difficult at all 10/30/2024 10:22 AM EDT Berna Garcia documented as of this encounter Miscellaneous Notes * Progress Notes - Essence Nayak PA - 10/30/2024 10:50 AM EDT Subjective Patient ID: Phillip Briggs is a 84 y.o. male. Chief Complaint Patient presents with Dysphagia, unspecified Abdominal Pain This is a new problem. The current episode started more than 1 month ago. The onset quality is undetermined. The problem occurs rarely. Associated symptoms include anorexia, arthralgias and weight loss. Pertinent negatives include no belching, constipation, diarrhea, dysuria, fever, flatus, frequency, headaches, hematochezia, hematuria, melena, myalgias, nausea or vomiting. The pain is aggravatedby eating. Prior diagnostic workup includes upper endoscopy. Mr. Nader Briggs is an 84 year old male who presents in consultation with complaints of dysphagia. 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 Seen today at the request of Dr. Ben Dobbins following an office visit 06/2024. Per reviewof referral patient had complaints of dysphagia following radiation treatments to his throat. Pt had hospitalization 05/28-06/04/24 for worsening kidney function. During this time renal had requested GI consultation for weight loss. Reviewed modified barium swallow (05/2024) showing penetration of thin liquid barium, no aspiration, and pharyngeal dysphagia present with all consistencies. Reviewed EGD (05/2024) showing stricture/fibrosis with tortuosity at the level of the cricopharynx, transverable otherwise normal stomach and duodenum. At that time was recommended if dilation to be pursued to haveconsultation with ENT. 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 Again recommended referral to ENT. Pt has consultation with ENT Dr. Andersen (09/2024) and underwent laryngoscopy without overt stricture noted, however recommended SML with lysis of web and steroid injection followed by esophageal balloon dilation. This was performed (10/07/24) with patient noting no change in symptoms. He is accompanied today by his daughter Julissa. Mr. Briggs reports longstanding history of dysphagia following the radiation therapy to his neck.Initially this wasn't too bothersome, however over the last year this has been worsening. Reports dysphagia to solids with intermittent dysphagia to liquids. States has a lot of coughing and most of the time coughes up about 30% of food he consumes. This has been discouraging for him resulting in poor PO intake. He has had 11# weight loss since 08/2024. Following his procedure 10/07/24 noticed worsening dysphagia to liquids. He has nutritional supplement shakes but finds these difficult to tolerate. He was able to eat a baked potato yesterday without issue. Denies significant reflux or heartburn. Denies abdominal pain. Denies changes in bowel habits. Denies hematochezia or melena. Takes baby ASA daily. Nonsmoker. Denies alcohol or illicit drug use. Report remote history of colonoscopy that was normal. States was told would not need further colorectal cancer screening. Denies family history of GI malignancy, IBD or celiac disease -10/07/24 OP Note: Old pill found in the posterior hypopharynx and removed. Narrowing at the post cricoid region with edematous appearing tissue, which was biopsied. Balloon dilation in this area to 20 mm. There was also food bolus seen at the proximal esophagus just past the introitus. No other concerning lesions or abnormal mucosa in the mid and distal esophagus. Path: A. POST CRYCOID MUCOSA, BIOPSY: BENIGN SQUAMOUS EPITHELIUM WITH SUBEPITHELIAL EDEMA AND MILD CHRONIC INFLAMMATION -07/2024 EGD: Just above the UES (from 13-14 cm there was a mild, extrinsic stricture (traversable).Repositioning of the jaw by DISPENSING OPTICIAN APPRENTICE allowed for passage of the diagnostic gastroscope without resistance. The was carefully examined and showed an internal diameter of 12 mm. As this was above the UES and appeared to be extrinsic, will defer to ENT for possible dilation vs. Other interventions. The upper third of the esophagus, middle third of the esophagus, lower third of the esophagus and GE junction appeared normal. No rings, narrowings or strictures in the esophagus to account for Mr. Briggs's dysphagia. The extrinsic narrowing noted at and just above the level of the cricopharynx is likely the cause of his swallowing troubles. The cardia, fundus of the stomach, body of the stomach, incisura, antrum, prepyloric region and pylorus appeared normal. The duodenal bulb and 2nd part of the duodenum appeared normal -05/2024 EGD: Stricture / fibrosis with tortuosity at the level of the cricopharynx. This was traversable. The stomach appeared normal. Noted diminutive mucosal nodules consistent with benign fundic gland polyps. The duodenum appeared normal. Stenosis is very proximal and appears to be benign / intrinsic consistent with given history of of radiation treatment for head and neck cancer -05/2024 MBS: Penetration of thin liquid barium. No aspiration. Pharyngeal dysphagia present with all consistencies The following portions of the chart were reviewed this encounter and updated as appropriate: Tobacco Allergies Meds Problems Med Hx Surg Hx Fam Hx Review of Systems Constitutional: Positive for weight loss. Negative for fever. HENT: Positive for trouble swallowing. Respiratory: Positive for cough. Gastrointestinal: Positive for anorexia. Negative for abdominal pain, constipation, diarrhea, flatus, hematochezia, melena, nausea and vomiting. Genitourinary: Negative for dysuria, frequency and hematuria. Musculoskeletal: Positive for arthralgias. Negative for myalgias. Neurological: Negative for headaches. Objective Vitals: 10/30/24 1019 10/30/24 1103 BP: (!) 147/51 (!) 145/54 Pulse: 53 Temp: 36.5 ??C (97.7 ??F) TempSrc: Oral SpO2: 95% Weight: 59.1 kg (130 lb 4.7 oz) Height: 1.803 m (5' 11 ) Physical Exam Constitutional: General: He is not in acute distress. Appearance: Normal appearance. HENT: Head: Normocephalic. Nose: Nose normal. Eyes: General: No scleral icterus. Neck: Comments: Surgical and radiation changes to left neck. No erythema, tenderness or drainage. Cardiovascular: Rate and Rhythm: Normal rate and regular rhythm. Pulmonary: Effort: Pulmonary effort is normal. Breath sounds: Normal breath sounds. Abdominal: General: Abdomen is flat. Bowel sounds are normal. There is no distension. Palpations: Abdomen is soft. Tenderness: There is no abdominal tenderness. Musculoskeletal: Cervical back: Neck supple. Lymphadenopathy: Cervical: No cervical adenopathy. Skin: General: Skin is dry. Neurological: Mental Status: He is alert and oriented to person, place, and time. Psychiatric: Mood and Affect: Mood normal. Behavior: Behavior normal. Judgment: Judgment normal. Assessment/Plan Pharyngeal dysphagia Suspect related to previous neck surgery/radiation - reviewed EGD (05/2024): Stricture / fibrosis with tortuosity at the level of the cricopharynx. This was traversable. The stomach and duodenum appeared normal. Stenosis is very proximal and appears to be benign / intrinsic consistent with given history of radiation treatment for head and neck cancer - reviewed MBS (05/2024): Penetration of thin liquid barium. No aspiration. Pharyngeal dysphagia present with all consistencies - reviewed speech pathology note 06/01/24: recommendations: The patient chooses to continue with oraldiet. The patient is recommended to follow an IDDSI Level 7 - Easy to Chew and IDDSI Level 0 - Thindiet. To optimize safety and efficiency, he should alternate bites and sips and take small bites and sips with each intake. Continued monitoring and compensatory strategies should be implemented to reduce aspiration risk and promote adequate clearance of pharyngeal residue. - Reviewed repeat EGD (07/2024): Just above the UES (from 13-14 cm there was a mild, extrinsic stricture (traversable). Repositioning of the jaw by DISPENSING OPTICIAN APPRENTICE allowed for passage of the diagnostic gastroscope without resistance. The was carefully examined and showed an internal diameter of 12 mm. As this was above the UES and appeared to be extrinsic, will defer to ENT for possible dilation vs. Other interventions. The upper third of the esophagus, middle third of the esophagus, lower third of the esophagus and GE junction appeared normal. - reviewed consultation and OP note from ENT Dr. Andersen: Old pill found in the posterior hypopharynxand removed. Narrowing at the post cricoid region with edematous appearing tissue, which was biopsied. Balloon dilation in this area to 20 mm. There was also food bolus seen at the proximal esophagusjust past the introitus. No other concerning lesions or abnormal mucosa in the mid and distal esophagus. Path: A. POST CRYCOID MUCOSA, BIOPSY: BENIGN SQUAMOUS EPITHELIUM WITH SUBEPITHELIAL EDEMA AND MILD CHRONIC INFLAMMATION - consider eval and treat with speech therapy. - Agree with repeat MBS scheduled next week - Given current findings and patient symptoms unsure if GI intervention would be beneficial or provide improvement in patients symptoms. Did discuss if unable to tolerate PO intake a feeding tube maybe an appropriate option. States he does not want to consider this at this time but may be open to it in the future. - continue follow up with ENT - continue omeprazole 40mg daily. Rx by PCP Follow up pending further eval with ENT, may need follow up in fellows clinic for consideration of PEG Essence Nayak PA-C A total of 55 minutes was spent on this patient encounter - educating patient, interpreting and discussing labs and imaging, impressions, prognosis, risks/benefits of current treatment options, risk factor reduction, instructions for management, and documentation. Care coordination provided included review and summary of medical records and additional diagnostic research, phone collaboration and consult with peers. documented in this encounter Plan of Treatment Upcoming Encounters Date Type Department Care Team (Latest Contact Info) Description 12/25/2024 7:30 AM EDT Hospital Encounter [facility] [address] [place] [id number] Carolee Gr MD [address] [place] [phone] 12/25/2024 7:30 AM EDT Anesthesia Event [facility] [address] [place] [address] Sun Dean PA [address] [place] [address] 12/25/2024 7:30 AM EDT - 12/25/2024 10:00 AM EDT Surgery [facility] [address] [place] [address] Carolee Gr MD [address] [place] [phone] REVISION, AV FISTULA, UPPER EXTREMITY [[id number] (CPT )] 05/03/2025 8:00 AM EST Appointment [facility] Ultrasound [address] [place] [address] 2025 1:00 PM EST [facility] [address] [place] [address] Rudy Andersen MD [address] [place] [address] 05/13/2025 8:10 AM EST Office [facility] [address] [place] [address] Cheyenne Mitchell APRN, DNP [address] [place] [address] Scheduled Procedures Name Priority Associated Diagnoses Date/Ti me REVISION, AV FISTULA OR GRAFT, UPPER EXTREMITY ESRD (end stage renal disease) ([facility]) 12/25/2024 7:30 AM EDT documented as of this encounter Visit Diagnoses Diagnosis Pharyngeal dysphagia- Primary Dysphagia, pharyngeal phase ESRD (end stage renal disease) ([facility]) End stage renal disease documented in this encounter Additional Health Concerns Assessment Noted Time PHQ-9 Depression Total Score: 4 10/31/19 25 10:22 AM EDT A fall risk assessment has been complete d for the patient 10/30/2024 10:23 AM EDT A Body Mass Index follow-up plan has been documented for the patient 10/30/2024 11:00 AM EDT documented as of this encounter Care Teams Admitting Coordinator Relationship Specialty Start Date End Date Oz Ramos MD [address] [place] [address] [address] [place] [address] PCP - General 10/07/20 John Joseph MD [address] [place] [address] Consulting Physician Urology 02/04/23 Cheyenne Mitchell APRN, DNP [address] [place] [address] Nurse Practitioner Urology 05/13/24 documented as of this encounter
--- OUTSIDE RECORDS SUMMARY | 2024-11-06 15:14 | XMS_ITS | Encounter Summary ---
Author Organization [facility] Address [address] [place] [address] Care Team Providers Care Flap Maker Name Role Phone Oz Ramos MD Primary Care Provider [phone] John Joseph MD Unavailable [phone] Cheyenne Mitchell APRN [facility] Unavailable [phone] Reason for Referral * Imaging (Routine) - Closed Specialty Diagnoses / Procedures Referred By Contac t Referred To Contact Radiology Diagnoses Dysphagia, unspecified type Procedures [place] Modified Barium Swallow Yadiel Thornton MD [address] [address] Phone: tel: fax: Referral ID Status Reason Start Date Expiration Date V isits Requested Visits Authorized [id number] Closed Perform Procedure 10/13/2024 04/14/2026 1 1 Reason for Visit * Imaging (Routine) - Closed Specialty Diagnoses / Procedures Referred By Contac t Referred To Contact Radiology Diagnoses Dysphagia, unspecified type Procedures FL Modified Barium Swallow Yadiel Thornton MD [address] [address] Phone: tel: fax: Referral ID Status Reason Start Date Expiration Date V isits Requested Visits Authorized [id number] Closed Perform Procedure 10/13/2024 04/14/2026 1 1 Encounter Details Date Type Department Care Team (Latest Contact Info) Description 11/06/2024 3:14 PM EDT - 11/06/2024 11:59 PM EDT Hospital Encounter [facility] Radiology [address] [place] [address] Socorro Cameron MS CCC-OVEN BUILDER Dysphagia, oropharyngeal (Primary Dx); Dysphagia, unspecified type [...] any time in the past 12 m [facility], were you homeless or living in a longterm (including now)? No 06/19/2024 CAGE ASSESSMENT Answer [...] drink first t jeff in the morning (EYE-TRIAL COURT JUSTICE) to steady your nerves or to get rid of a hangover? 0 06/18/2024 CAGE Questionnaire Score 0 025 Utilities Answer Date Recorded In the past 12 months has th [employer], gas, oil, or water [employer] threatened to shut off services in your [...] Progress Notes - Socorro Cameron, MS [facility]OVEN BUILDER - 11/06/2024 3:30 PM EDT [facility] Modified Barium [...] on 10/07/2024. Results of Previous Dysphagia Evaluations: [facility] inpatient on 06/01/2024: moderate pharyngeal dysphagia. During [...] Varibar Thin Liquid: 5-mL x2, 10-mL Varibar [place]-thick Liquid: 5-mL Puddin-mL via spoon Positioning during [...] airway, below the vocal folds, not ejected [place]-thick liquid 4- Enters airway, contacts the folds [...] consuming 32 ounces of liquids each day. OVEN BUILDER reached out to flooring salesperson to ensure patient is receiving adequate nutrition while requiring a liquid wash after each bite.) Recommendation for Referral to Additional Providers: Follow-up with referring provider. PATIENT/CAREGIVER EDUCATION PROVIDED The family was provided education regarding the results of this study. They verbalized understanding. The family was provided education regarding the risks versus benefits of an oral diet. OVEN BUILDER discussed risks of aspiration such as possible development of aspiration pneumonia. OVEN BUILDER also discussed ways to mitigate the risk, including maintaining good oral hygiene and remaining physically active. . documented in this encounter Plan of Treatment Upcoming Encounters Date Type Department Care Team (Latest Contact Info) Description 12/25/2024 7:30 AM EDT Hospital Encounter [facility] OPERATING ROOM [address] [place] [id number] Carolee Gr MD [address] [place] [address] 12/25/2024 7:30 AM EDT Anesthesia Event [facility] [address] [place] [address] Sun Dean PA [address] [place] [address] 12/25/2024 7:30 AM EDT - 12/25/2024 10:00 AM EDT Surgery [facility] [address] [place] [address] Carolee Gr MD [address] [facility] [address] [place] [address] REVISION, AV FISTULA, UPPER EXTREMITY [45777 (CPT )] 05/03/2025 8:00 AM EST Appointment [facility] Ultrasound [address] [place] [address] 2025 1:00 PM EST Office [facility] Ot[facility] [address], 3rd [place] [address] Yadiel Thornton MD [address] [facility] [address] [place] [address] 05/13/2025 8:10 AM EST [facility] Urology [address], [address] [place] [address] Cheyenne Mitchell, CHORE TENDER, DNP [address] [place] [address] Scheduled Procedures Name Priority Associated Diagnoses Date/Ti me REVISION, AV FISTULA OR GRAFT, UPPER EXTREMITY ESRD (end stage renal disease) ([facility]) 12/25/2024 7:30 AM EDT documented [...] varying consistencies. Fluoroscopy Time: 2.9 minutes. COMPARISON: [facility], 06/01/2024. Chest CT 05/28/2024. FINDINGS: Swallowing: Penetration [...] varying consistencies. Fluoroscopy Time: 2.9 minutes. COMPARISON: [facility], 06/01/2024. Chest CT 05/28/2024. FINDINGS: Swallowing: Penetration [...] were discussed via secure chat with YADIEL Flores on 11/06/2024 4:52 PM by Bob Nathan MD. By electronically signing this report, I, the attending physician, attestthat I have personally reviewed the images/data for the aboveexamination(s) and agree with the final edited report. Drafted by Santos Benavides MD on 11/06/2024 4:31 PM Final report signed by Bob Nathan MD on 11/06/2024 4:53 PM Yadiel Thornton MD IMG FLUOROSCOPY PROCEDURES Final Result documented in this encounter Visit Diagnoses Diagnosis Dysphagia, oropharyngeal- Primary Dysphagia, oropharyngeal phase Dysphagia, unspecified type ESRD (end stage renal disease) ([facility]) End stage renal disease documented in this encounter Administered Medications Inactive Administered Medications - up to 3 most recent administrations Medication Order MAR Action Action Date Dose Rate Site barium sulfate (Varibar [place]) 40 % suspension 120 mL 120 mL, [...] documented as of this encounter Care Teams Flap Maker Relationship Specialty Start Date End Date Oz Ramos MD [address] [place] [address] [address] [place] [address] PCP - General 10/07/20 John Joseph MD [address] [place] [address] Consulting Physician Urology 02/04/23 Cheyenne Mitchell, ELIZABETH, DEVI [address] [place] [address] Nurse Practitioner Urology 05/13/24 documented as of this encounter
--- OUTSIDE RECORDS SUMMARY | 2024-11-19 10:30 | XMS_ITS | Encounter Summary ---
Author Organization [facility] Address [address] [place] [address] Care Team Providers Care Arabic Translator Name Role Phone Oz Ramos MD Primary Care Provider [phone] John Joseph MD Unavailable [phone] Cheyenne Mitchell APRN, DNP Unavailable [phone] Reason for Visit * Reason Comments Post-op Encounter Details Date Type Department Care Team (Latest Contact Info) Description 11/19/2024 10:30 AM EDT [facility] [address], [address] [place] [address] Rudy Andersen MD [address] [place] [address] Pharyngoesophageal dysphagia (Primary Dx); History of squamous cell carcinoma; History of radiation therapy; Dysphonia Social History Tobacco Use Types Packs/Day Years [...] any time in the past 12 m [facility], were you homeless or living in a skilled nursing (including now)? No 06/19/2024 AUDIT-C Answer Date Recorded Frequency of Alcohol Consumption Not on file 11/26/2024 Q2: How many drinks containi ng alcohol do you have on a typical day when you are drinking? Patient does not drink Frequency of Binge Drinking Not on file 07/2024 CAGE ASSESSMENT Answer Date Recorded Cage unable [...] drink first t jeff in the morning (EYE-DOPEMAN) to steady your nerves or to get rid of a hangover? 0 06/18/2024 CAGE Questionnaire Score 0 025 Utilities Answer Date Recorded In the past 12 months has th e [email or web address], gas, oil, or water [employer] threatened to shut off services in your [...] Sign Reading Time Taken Comments Blood Pressure 144/69 11/19/2024 10:29 AM EDT Pulse 53 11/19/2024 10:29 AM EDT Temperature - - Respiratory Rate - - Oxygen Saturation - - Inhaled Oxygen Concentration - - Weight - - Height - - Body Mass Index - - documented in this encounter Functional Status * Calculated C-SSRS Risk Score (Lifetime/Recent) Answer Date of Assessment Author No Risk Indicated 11/26/2024 10:53 AM EDT Lindsey Knight RN * Question Answer Date of Assessment Author 1. Wish to be (Past 1 Month) No 025 10:53 AM EDT Lindsey Knight RN 2. Non-Specific Active Suici ceasar Thoughts (Past 1 Month) No 11/26/2024 10:53 AM EDT Lindsey Knight RN 6. Suicidal Behavior (Lifetime) No 10:53 AM EDT Lindsey Knight RN documented as of this encounter Miscellaneous Notes * Progress Notes - Rudy Andersen MD - 11/19/2024 10:30 AM EDT Chief Complaint Patient presents with Post-op Dear Dr. Andersen , Thank you for requesting a consultation for your patient. My full consultation is as follows. I had the pleasure of seeing your patient today in clinic. Nader Briggs is a 84 y.o. male that returns with problems with his swallowing. 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 He has gradually worsened with his swallowing, but really worsened over the past year. He was referred by Dr. France jane to GI for treatment of his swallowing, but they encountered only an upper esophageal/pharyngeal stricture at only 14cm from the teeth and referred to me. He has been worsening with his food and will primarily do softs and liquids. He has been slowly losing weight and currently 131 pounds today. Denies ever smoking. He is currently on dialysis as well for ESRD. Has been having a weaker voice,but no acute change. He returns today after having had esophagoscopy and dilation of his upper esophageal stenosis and removal of pill in the posterior hypopharynx as well. He was dilated to 20mm and has improved with swallowing to a mild extent. Still having to take time and chew things down very small and still very dry. Visit Vitals BP (!) 144/69 Pulse 53 Smoking Status Never Allergies[1] Active Ambulatory Problems Diagnosis Date Noted CORY (acute kidney injury) ([facility]) 05/28/2024 Kidney lesion, lovelock, left 06/24/2024 ESRD (end stage renal disease) ([facility]) 08/13/2024 Dysphagia, oropharyngeal 11/10/2024 Resolved Ambulatory Problems Diagnosis Date Noted No Resolved Ambulatory Problems Past Medical History: Diagnosis Date Anemia Aquino's esophagus Cancer of neck ([facility]) Carotid artery occlusion 2019 Chronic cough Conversions - Other Dental disease Diabetes mellitus ([facility]) Disease of thyroid gland Dysphagia History of throat problem HL (hearing loss) Hoarseness 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 MBS from last week also improved. Restricted still somewhat due to fluid restriction from the kidneys. RTC 6 months to make sure swallowing is stable and no aspiration pneumonias. [1] Allergies Allergen Reactions Nsaids Unknown - Patient states they do not know rxn details and Nausea Renal documented in this encounter Plan of Treatment Upcoming Encounters Date Type Department Care Team (Latest Contact Info) Description 12/25/2024 7:30 AM EDT Hospital Encounter [facility]ATING RO[facility] [address] [place] [phone] Carolee Gr MD [address] [place] [address] 12/25/2024 7:30 AM EDT Anesthesia Event [facility] RO[facility] [address] [place] [phone] Sun Dean PA [address] [place] [address] 12/25/2024 7:30 AM EDT - 12/25/2024 10:00 AM EDT Surgery [facility] [address] [place] [address] Carolee Gr MD [address] [facility] [address] [place] [address] REVISION, AV FISTULA, UPPER EXTREMITY [[id number] (CPT )] 05/03/2025 8:[address] [facility] Ultrasound [address] [place] [address] 2025 1:00 PM EST [facility] [address], [address]rd [place] [address] Rudy Andersen MD [address] [facility] [address] [place] [address] 05/13/2025 8:10 AM EST Office Visit [facility] Urology [address], [address] [place] [address] Cheyenne Mitchell, FIELD SAMPLING TECHNICIAN, DNP [address] [facility] [address] [place] [address] Scheduled Procedures Name Priority Associated Diagnoses Date/Ti me REVISION, AV FISTULA OR GRAFT, UPPER EXTREMITY ESRD (end stage renal disease) ([facility]) 12/25/2024 7:30 AM EDT documented as of this encounter Visit Diagnoses Diagnosis Pharyngoesophageal dysphagia- Primary Dysphagia, pharyngoesophageal phase History of squamous cell carcinoma History of radiation therapy Personal history of irradiation, presenting hazards to health Dysphonia ESRD (end stage renal disease) ([facility] Primary End stage renal disease ESRD (end stage renal disease) ([facility]) End stage renal disease documented in this encounter Additional Health Concerns Assessment Noted Time PHQ-9 Depression Total Score: 4 10/31/19 25 10:22 AM EDT A fall risk assessment has been complete d for the patient 10/30/2024 10:23 AM EDT A Body Mass Index follow-up plan has been documented for the patient 11/29/2024 3:08 PM EDT documented as of this encounter Care Teams Arabic Translator Relationship Specialty Start Date End Date Oz Ramos MD [address] [place] [address] [address] [place] [address] PCP - General 10/07/20 John Joseph MD [address] [place] [address] Consulting Physician Urology 02/04/23 Cheyenne Mitchell, ELIZABETH, DNP [address] [place] [address] Nurse Practitioner Urology 05/13/24 documented as of this encounter
--- OUTSIDE RECORDS SUMMARY | 2024-11-26 10:00 | XMS_ITS | Encounter Summary ---
Author Organization [facility] Address [address] [place] [address] Care Team Providers Care Hot Plate Plywood Press Operator Name Role Phone Oz Ramos MD Primary Care Provider [phone] John Joseph MD Unavailable [phone] Cheyenne Mitchell APRN, DEVI Unavailable [phone] Reason for Visit * Reason Comments End-Stage Renal Disease Encounter Details Date Type Department Care Team (Latest Contact Info) Description 11/26/2024 10:00 AM EDT [facility] [address] [place] [address] Carolee Gr MD [address] [facility] [address] [place] [address] ESRD (end stage renal disease) (CMS/HCC) (Primary Dx) Social History Tobacco Use Types [...] in a intermediate (including now)? No 06/19/2024 AUDIT-C Answer Date [...] drink first t jeff in the morning ([employer] POULTRY [employer]ATCH[employer]) to steady your nerves or to get [...] Sign Reading Time Taken Comments Blood Pressure 77/36 11/26/2024 10:10 AM EDT Pulse 51 11/26/2024 10:10 AM EDT Temperature 36.2 C (97.2 F) 11/26/2024 9:52 AM EDT Respiratory Rate - - Oxygen Saturation 93% 11/26/2024 10:10 AM EDT Inhaled Oxygen Concentration - - Weight 59 kg (130 lb) 11/26/2024 9:52 AM EDT Height - - Body Mass Index 18.13 10/30/2024 10:19 AM EDT documented in this encounter Functional Status documented as of this encounter Miscellaneous Notes * Clinician Note - Gaby Marley RN - 11/26/2024 10:00 AM EDT Patient presented to clinic with generalized fatigue, weakness and dizziness. Daughter reports thatpatient almost fell out of the car upon arriving to clinic. Vital signs during intake BP 83/38. Upon assessment by RN, daughter states that patient went to the stripe matcher on Saturday, and had a spotshaved off. Daughter statues unaware to her at the time, patient began bleeding. Patient had continu ed bleeding until Saturday night, when he proceeded to go to his local ER to have wound cauterized. Patient reports having dialysis on Saturday as well. Daughter reports that since having wound cauterized, it is not longer bleeding. Upon assessment, patient's blood pressure was 77/36. HR 51, O2 93% on RA. GCS 15, A&O x 4. Upon assessment by MD, patient advised to go to the ER for evaluation. EMS transport called to assist patient to ER. Report called to ED Charge Casie. Patient left facility with EMS at 1025. Proceeding to [facility]. * H&P - Júnior Galicia MD - 11/26/2024 10:00 AM EDT Dear Oz Ramos MD, HPI Mr. Briggs is an 84yoM with PMH of DM, HTN, CAD, TIA s/p left carotid stent, and ESRD on HD via right internal jugular TDC s/p left brachiobasilic AVF creation on 09/11/2024. Duplex with adequate flow in the fistula and nearby cyst versus lymphocele. At last clinic visit we had discussion that fistula appeared superficial enough for access, but that it would potentially be difficult/uncomfortable due to posterior nature. He expressed a strong desire to avoid another surgery if possible. We agreed to try for dialysis access. Unfortunately this was not successful. He presents today with his daughter to discuss supervascularization surgery. Today he is lethargic, dizzy and fainting. His BP was 83/38 and 76/36 on repeat. They report he recently had substantial bleeding following a shoulder biopsy and has felt ill ever since. Vitals: 11/26/24 0952 BP: (!) 83/38 Pulse: 52 Temp: (!) 36.2 ??C (97.2 ??F) His chronic comorbid conditions that impact our treatment planning include: Chronic Kidney Disease (CKD) - onIHD, with a last eGFR of: 14.3mL/min/1.73 sq meters The following portions of the chart were reviewed this encounter and updated as appropriate: Tobacco Allergies Meds Problems Med Hx Surg Hx Fam Hx Subjective Review of Systems 14 point review of systems was obtained and is negative except for as above in HPI. Objective Physical Exam/ Constitutional: ill appearing, but non-toxic and thin Respiratory: Normal expansion. Clear to auscultation. No rales, rhonchi, or wheezing. Cardiac: Heart sounds are normal. Regular rate and rhythm without murmur, gallop or rub. Neurologic: normal sensation and reflexes and motor intact Skin: Warm, Extremity perfusion: decreased skin turgor Assessment/Plan In Summary: Nader Briggs is a 84 y.o. year old male who we saw today in clinic. Below is a summary of the diagnoses addressed in today's visit and any associated orders: Problem List Items Addressed This Visit ESRD (end stage renal disease) ([facility]) - Primary Relevant Orders Case Request Operating Room: REVISION, AV FISTULA, UPPER EXTREMITY (Completed) We discussed that from a vascular surgery standpoint we will schedule for left upper extremity AV fistula superficialization. Will contact for scheduling. Due to illness today will obtain informed consent on day of surgery. We discussed our recommendation to proceed to the ED today as patient likely requires blood transfusion for acute blood loss anemia. Will assist with transfer. The patient was counseled on the importance of: - proper nutrition, exercise and maintaining a healthy weight. Cosigned by Carolee Gr MD at 11/26/2024 10:40 AM EDT Associated attestation - Carolee Gr MD - 11/26/2024 10:40 AM EDT I saw and evaluated the patient with the resident/fellow. I discussed the case with the resident/fellow and agree with the findings and plan as documented. documented in this encounter Plan of Treatment Upcoming Encounters Date Type Department Care Team (Latest Contact Info) Description 12/25/2024 7:30 AM EDT Hospital Encounter [facility] [address] [place] [address] Carolee Gr MD [address] [facility] [address] [place] [address] 12/25/2024 7:30 AM EDT Anesthesia Event [facility] [address] [place] [address] Sun Dean PA [address] [place] [address] 12/25/2024 7:30 AM EDT - 12/25/2024 10:00 AM EDT Surgery [facility] [address] [place] [address] Carolee Gr MD [address] [place] [address] REVISION, AV FISTULA, UPPER EXTREMITY [[id number] (CPT )] 05/03/2025 8:00 AM EST Appointment [facility] Ultrasound [address] [place] [id number] 2025 1:00 PM EST [facility] [address] [place] [address] Rudy Andersen MD [address] [place] [address] 05/13/2025 8:10 AM EST Office Visit [facility] Urology [address] [place] [address] Cheyenne Mitchell, INTEGRATED CIRCUIT IC LAYOUT DESIGNER, DNP [address] [place] [address] Scheduled Procedures Name Priority Associated Diagnoses Date/Ti me REVISION, AV FISTULA OR GRAFT, UPPER EXTREMITY ESRD (end stage renal disease) ([facility]) 12/25/2024 7:30 AM EDT documented as of this encounter Goals Goal Patient Goal Type Associated Problems Recent Progress Patient-Stated? Author Autogenera kp Goal Care Plan Autogenerated Problem No Purnima Calhoun documented as of this encounter Visit Diagnoses Diagnosis ESRD (end stage renal disease) ([facility])- Primary End stage renal disease ESRD (end stage renal disease) ([facility]) End stage renal disease documented in this encounter Additional Health Concerns Active Problems Noted Date Diagnosed Date Autogenerated Problem 11/26/2024 Assessment Noted Time PHQ-9 Depression Total Score: 4 10/31/19 25 10:22 AM EDT A fall risk assessment has been complete d for the patient 11/26/2024 9:56 AM EDT A Body Mass Index follow-up plan has been documented for the patient 11/26/2024 10:41 AM EDT documented as of this encounter Care Teams Hot Plate Plywood Press Operator Relationship Specialty Start Date End Date Oz Ramos MD [address] [place] [address] #1 #1 ELO Damian [id number] PCP - General 10/07/20 John Joseph MD [address] [place] [address] Consulting Physician Urology 02/04/23 Cheyenne Mitchell, INTEGRATED [employer] IC LAYOUT DESIGNER, DNP [address] [place] [address] Nurse Practitioner Urology 05/13/24 documented as of this encounter
--- OUTSIDE RECORDS SUMMARY | 2024-11-26 10:45 | XMS_ITS | Encounter Summary ---
Author Organization [facility] Address [address] [place] [id number] Care Team Providers Care Curtain Fitter Name Role Phone Oz Ramos MD Primary Care Provider [phone] John Joseph MD Unavailable [phone] Cheyenne Mitchell APRN, [facility] Unavailable [phone] Reason for Visit * Reason Comments Hypotension Encounter Details Date Type Department Care Team (Late st Contact Info) Description 11/26/2024 10:45 AM EDT - 11/26/2024 3:09 PM EDT Emergency [facility] Emergency Department [address] [place] [id number] Benny Harris MD [address] [place] [address] Tiana Winston DO [address] [place] [address] Hypotension due to blood loss (Primary Dx) Discharge Disposition: Home or Self Care Social [...] the past 12 m [facility], were you homeless or living in a fci (including now)? No 06/19/2024 AUDIT-C Answer Date [...] drink first t jeff in the morning (EYE-PANEL MONITOR) to steady your nerves or to get rid of a hangover? 0 06/18/2024 CAGE Questionnaire Score 0 025 Utilities Answer Date Recorded In the past 12 months has th e Compass, gas, oil, or water [employer] threatened to shut off services in your [...] Sign Reading Time Taken Comments Blood Pressure 163/54 11/26/2024 3:00 PM EDT Pulse 56 11/26/2024 3:00 PM EDT Temperature 36.6 C (97.8 F) 11/26/2024 3:00 PM EDT Respiratory Rate 9 11/26/2024 3:00 PM EDT Oxygen Saturation 100% 11/26/2024 3:00 PM EDT Inhaled Oxygen Concentration - - Weight 61 kg (134 lb 7.7 oz) 11/26/2024 10:50 AM EDT Height 180.3 cm (5' 11 ) 11/26/2024 10:50 AM EDT Body Mass Index 18.76 11/26/2024 10:50 AM EDT documented in this encounter Functional [...] 1 Month) No 11/26/2024 10:53 AM EDT Shoot, Lindsey A, RN 6. Suicidal Behavior (Lifetime) No 5 10:53 AM EDT Lindsey Knight RN documented as of this encounter Discharge Instructions * Discharge Instructions* Teetee Mooney APRN - 11/26/2024 2:58 PM EDT You were seen in the emergency department today and evaluated for low blood pressure. I believe theblood pressure was low because of your recent bleeding from your dermatologic procedure. Please maintain your dialysis and return to the ED with any signs and symptoms of worsening condition. documented in this encounter Medications at Time [...] CC (Adalat CC) 60 MG 24 hr tabletIndication s:ESRD (end stage renal disease) (CMS/[facility]) TAKE 1 TABLET BY MOUTH DAILY BEFORE BREAKFAST DO NOT CRUSH, CHEW, OR SPIT. 90 tablet 3 11/09/2024 omeprazole (PriLOSEC) [address] capsule Take 1 capsule by mouth nightly. 02/08/2021 PreviDent 5000 Booster Plus 1.1 % paste APPLY A THIN RIBBON TO THE TOOTHBRUSH AND BRUSH THOROUGHLY ONCE DAILY 10/12/2024 valsartan (Diovan) 160 MG tablet Take 1 tablet (160 mg) by mouth 1 (one) time each day. 30 tablet 06/25/2024 documented as of this encounter Miscellaneous Notes * Progress Notes - Atif Miller RN - 11/26/2024 11:53 AM EDT Geriatric Screening at risk for malnutrition Geriatric MNA alert for a pt response on the questionnaire. CM reviewed chart prior to assessment. Patient alert is triggered to assist in preventing further deterioration and improve patient outcomeif monitored. Spoke with patient and family at bedside, pt has not been drinking any nutritional supplement drinks/day. Eating 75 % of meals but has difficulty swallowing. Daughter at bedside says he might eat only 1 meal a day. Patient has a diagnosis of ESRD and radiation treatments on his throat in the s that could be linked to possible malnutrition. Mini Nutritional Assessment/Screening (Adults 65 and Older) A. Has food intake declined over the past 3 months due to loss of appetite, digestive problems, chewing or swallowing difficulties?: No decrease in food intake B. Weight loss during the last 3 months: No weight loss C. Mobility: Goes out D. Has suffered psychological stress or acute disease in the past 3 months?: No E. Neuropsychological problems: No psychological problems F1. MNA Body Mass Index (BMI) (Weight in kg)/(Height in m)2: 0 Mini Nutritional Screening Score : 11 Copy of Recommendation for Intervention provided to patient to take to next PCP appt and faxed to PCP. Case management will continue to follow as needed and able to offer additional resources at request. Lien Miller ED-maintenance department technician * ED Provider Notes - Vinicio Teetee ELIZABETH Salmon - 11/26/2024 10:45 AM EDT Images from the original note were not included. HPI Chief Complaint Patient presents with Hypotension Phillip Briggs is a 84-year old male with a PMH of DM, CKD on dialysis (last on Saturday), neck cancer, TIA on Plavix and aspirin who presented to the ED for evaluation for hypotension. According to the patient and his daughter at bedside, he was at a routine vascular appt today and was found to be hypotensive with SBP of 77 which is what prompted them to seek medical attention. It is of note that 2 days ago the patient has a dermatologic procedure where he had an area concerning for malignancy removed from his right shoulder. The daughter presented to his home after and found his shirt,sheets, and bed saturated with blood as well as it was briskly bleeding that was untreated with TXAgauze, surgicel, and cauterization. Site is currently hemostatic but daughter notes he was bleedingfor 2 straight days. Patient notes dizziness with position changes and generalized fatigue. Denies fevers, chills, abdominal pain, diarrhea, vomiting, decreased oral intake, urinary symptoms. Daughter notes he is at his baseline. History provided by: Patient and relative cage fighter used: No Patient History Past Medical History[1] Surgical History[2] Family History[3] Social History[4] Allergies: Allergies[5] Physical Exam ED Triage Vitals [11/26/24 1050] Temp Heart Rate Resp BP 36.6 ??C (97.9 ??F) 52 15 (!) 111/38 SpO2 Temp Source Heart Rate Source Patient Position 91 % Oral -- -- BP Location FiO2 (%) -- -- Physical Exam Vitals and nursing note reviewed. Constitutional: General: He is not in acute distress. Appearance: Normal appearance. He is well-developed and normal weight. HENT: Head: Normocephalic and atraumatic. Eyes: Extraocular Movements: Extraocular movements intact. Conjunctiva/sclera: Conjunctivae normal. Pupils: Pupils are equal, round, and reactive to light. Cardiovascular: Rate and Rhythm: Regular rhythm. Bradycardia present. Pulses: Normal pulses. Heart sounds: Normal heart sounds. No murmur heard. Comments: Dixon in place in the right chest, C/D/I Pulmonary: Effort: Pulmonary effort is normal. No respiratory distress. Breath sounds: Examination of the right-lower field reveals decreased breath sounds. Examination ofthe left-lower field reveals decreased breath sounds. Decreased breath sounds present. Abdominal: Palpations: Abdomen is soft. Tenderness: There is no abdominal tenderness. Musculoskeletal: General: No swelling. Cervical back: Neck supple. Skin: General: Skin is warm and dry. Capillary Refill: Capillary refill takes less than 2 seconds. Coloration: Skin is pale. Comments: Wound to the right shoulder, hemostatic. See photo below Neurological: General: No focal deficit present. Mental Status: He is alert and oriented to person, place, and time. Mental status is at baseline. Psychiatric: Mood and Affect: Mood normal. EASI ?? Total Score: 0 [place] Coma Scale Score: 15 Mini Nutritional Screening Score : 11 TRST Assessment Total: 0 ED Course & MDM - Assessment: 84 y.o. male presents to ED with complaint of hypotension. It should be noted that the chronic conditions includes CKD, which currently is at goal therapy. This complicates the clinical picture because it Comorbidities: increases the amount and complexity of data to be reviewed Differential Diagnosis includes but is not limited to: Orthostatic hypotension secondary to blood loss, In order to fully explore the differential diagnosis the following treatments and tests were ordered: All Other Orders Ordered Status Ordering Provider 11/26/24 1119 Prepare Leukocyte Reduced RBC: 1 Units Blood - Once Placed in And Linked Group Final result TEETEE MOONEY 11/26/24 1119 Transfuse RBC Transfusion Placed in And Linked Group Final result TEETEE MOONEY 11/26/24 1059 PT-INR STAT Final result TEETEE MOONEY 11/26/24 1059 APTT STAT Final result TEETEE MOONEY 11/26/24 1059 Magnesium STAT Final result TEETEE MOONEY 11/26/24 1059 Phosphorus STAT Final result TEETEE MOONEY 11/26/24 1059 Blood gas panel, venous STAT Final result TEETEE MOONEY 11/26/24 1059 Insert peripheral IV Once Acknowledged TEETEE MOONEY 11/26/24 1059 Type and screen Start now Final result TEETEE MOONEY 11/26/24 1059 EKG now - STAT (adult) Once Preliminary result TEETEE MOONEY 11/26/24 1059 XR Chest 1 View One time imaging Final result TEETEE MOONEY 11/26/24 1059 CMP STAT Final result TEETEE MOONEY 11/26/24 1059 CBC w/diff STAT Final result TEETEE MOONEY 11/26/24 1054 POCT glucose meter PROCEDURE ONCE Final result POCT, GENERIC PROVIDER ED Course as of 11/26/24 1505 Chely Nov 26, 2024 1059 POCT Glucose(!): 164 [NT] 1059 On arrival patient is hemodynamically stable with an initial blood pressure of 111/83 with a repeat blood pressure of 117/73, afebrile at 97.9?? F and bradycardic at 52 beats per minute however according to the patient's daughter whom is at bedside this is his baseline. Patient states that he has been per feeling profoundly weak and having orthostatic dizziness with position changes for the last 2 days. Patient had a recent dermatologic procedure of his right shoulder where he had extensive bleeding from a previous biopsy location. Patient denies any other somatic complaints with the exception of his dizziness and weakness including chest pain, shortness of breath, nausea, vomiting, or diarrhea however initial O2 saturation of 84% on room air. Placed on 2 L nasal cannula with improvement however trialing alternate locations for pulse oximeter. [NT] 1111 Heart Rate: 52 Beta blocked, takes daily carvedilol [NT] 1118 Hemoglobin(!): 7.5 Given symptoms and recent bleeding, opted to provide 1 unit of PRBC [NT] 1118 pH, Venous: 7.39 [NT] 1118 pCO2, Venous: 48 [NT] 1118 Potassium, Whole Blood: 3.9 [NT] 1118 Sodium, Whole Blood: 143 [NT] 1118 Lactate: 0.8 [NT] 1118 EKG now - STAT (adult) Sinus bradycardia, no STEMI. [NT] 1152 aPTT(!): 36 [NT] 1152 INR: 1.1 [NT] 1152 Phosphorus: 3.7 [NT] 1153 ABO/Rh: O Positive [NT] 1203 BUN(!): 36 baseline [NT] 1302 Creatinine(!): 6.06 Elevated from baseline [NT] 1302 XR Chest 1 View Dixon in the right chest, nodular changes in the right lung. See formal radiologist read for final impression. [NT] 1405 Upon repeat exam, patient is far improved with BP to WNL, patients pallor has resolved and patient notes his symptoms are much better. Pending ambulation trial but likely discharge. Tolerate transfusion well without issue. [NT] 1459 Patient was able to ambulate without dizziness, lightheadedness, shortness of breath, or chestpain. At this time patient was agreeable as well as his daughter was agreeable to discharge. Strictreturn precautions were discussed and the patient and his daughter expressed understanding. Patientdischarged in stable condition and ambulated from the ED with steady gait [NT] 1503 BP(!): 163/54 MAP WNL [NT] ED Course User Index [NT] Teetee Mooney APRN Clinical Impressions as of 11/26/24 1505 Hypotension due to blood loss Social Determinates of Health Risks (including Economic Stability, Education and level of understanding, Healthcare access and quality and concerning social factors): None identified on this visit Ultimately, this patient was Was discharged Home (Discharge) The encounter diagnosis was Hypotension due to blood loss. . Patient was counseled on the diagnoses. Discharge medications if any are listed below. Listed medications are thought be either curative for listed diagnoses or will help control ongoing symptoms. Patient is requested to follow up with Patient's Primary Care Provider in order to obtain routine follow-up. Instructions on follow up as well as precautions to return to the ER provided verbally by the EM provider, as well as written in patients discharge education packet. ED Prescriptions None - Discharge Instructions You were seen in the emergency department today and evaluated for low blood pressure. I believe theblood pressure was low because of your recent bleeding from your dermatologic procedure. Please maintain your dialysis and return to the ED with any signs and symptoms of worsening condition. 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 Hyperlipidemia Hypertension Kidney stone Skin cancer Stroke ([facility]) TIA (transient ischemic attack) 2013 [2] Past Surgical History: Procedure Laterality Date APPENDECTOMY CAROTID ARTERY ANGIOPLASTY N/A Carotid artery angioplasty and stenting from [facility] CAROTID ENDARTERECTOMY 209 CAROTID STENT 2018 CHOLECYSTECTOMY NECK SURGERY N/A Neck Surgery from [facility] PROSTATE SURGERY N/A Prostate Surgery from [facility] THROAT SURGERY 10/08/2024 TOTAL HIP ARTHROPLASTY N/A Hip Replacement from [facility] [3] Family History Problem Relation Name Age of Onset Hypertension Mother Berna Benign Essential Hypertension Mother Berna Arthritis Father Nader Anesthesia problems Neg Hx Malig Hyperthermia Neg Hx [4] Tobacco Use Smoking status: Never Smokeless tobacco: Never Vaping Use Vaping status: Never Used Substance Use Topics Alcohol use: Never Drug use: Never [5] Allergies Allergen Reactions Nsaids Unknown - Patient states they do not know rxn details and Nausea Renal Teetee Mooney APRN 11/26/24 1505 Cosigned by Benny Harris MD at 11/27/2024 1:08 AM EDT Associated attestation - Benny Harris MD - 11/27/2024 1:08 AM EDT I attest to being involved in providing substantive part of the medical decision making in patient care. * ED Triage Notes - Lindsey Knight RN - 11/26/2024 10:45 AM EDT Initial BP in clinic was 77/30's c/o generalized weakness. Seen at [facility] operator had a spot removedand has been bleeding x2 days. Pt takes Plavix and ASA. Upon pt arrival BP is 111/38. FS 164. Last dialysis Saturday. documented in this encounter Plan of Treatment Upcoming Encounters Date Type Department Care Team (Latest Contact Info) Description 12/25/2024 7:30 AM EDT Hospital Encounter [facility] OPERATING ROOM [address] [place] [address] Carolee Gr MD [address] [place] [address] 12/25/2024 7:30 AM EDT Anesthesia Event [facility] OPERATING ROOM [address] [place] [address] Sun Dean PA [address] [place] [address] 12/25/2024 7:30 AM EDT - 12/25/2024 10:00 AM EDT Surgery [facility] OPERATING ROOM [address] [place] [address] Carolee Gr MD [address] [place] [address] REVISION, AV FISTULA, UPPER EXTREMITY [18709 (CPT )] 05/03/2025 8:00 AM EST Appointment [facility] Ultrasound [address] [place] [address] 2025 1:00 PM EST Office [facility] [address] [place] [id number] Rudy Andersen MD [address] [place] [address] 05/13/2025 8:10 AM EST Office [facility] [address] [place] [id number] Cheyenne Mitchell P, COARSE WIRE DRAWER, DNP [address] [place] [address] Scheduled Procedures Name Priority Associated Diagnoses Date/Ti me REVISION, AV FISTULA OR GRAFT, UPPER EXTREMITY ESRD (end stage renal disease) ([facility]) 12/25/2024 7:30 AM EDT documented as of this encounter Goals Goal Patient Goal Type Associated Problems Recent Progress Patient-Stated? Author Autogenera kp Goal Care Plan Autogenerated Problem No Purnima Calhoun documented as of this encounter Procedures Procedure Name Priority Date/Time Associated Diagnosis Comments TRANSFUSE RED BLOOD CELLS STAT 11/26/2024 12:12 PM EDT XR CHEST 1 VIEW STAT 11/26/2024 11:29 AM EDT PREPARE RBC STAT 11/26/2024 11:20 AM EDT ECG ADULT STAT 11/26/2024 11:17 AM EDT APTT STAT 11/26/2024 11:08 AM EDT PROTHROMBIN TIME(PT) / INR STAT 11/26/2024 11:08 AM EDT CBC WITH AUTO DIFFERENTIAL STAT 11/26/2024 11:08 AM EDT TYPE AND SCREEN STAT 11/26/2024 11:08 AM EDT PHOSPHORUS, PLASMA STAT 11/26/2024 11 :08 AM EDT MAGNESIUM, PLASMA STAT 11/26/2024 11: 08 AM EDT BLOOD GAS PANEL, VENOUS STAT 11/26/2024 11:08 AM EDT COMPREHENSIVE METABOLIC PANEL, PLASMA STAT 11/26/2024 11:08 AM EDT POCT GLUCOSE METER UNSOLICITED RESULTS Routine 11/26/2024 10:54 AM EDT documented in this encounter Results * Transfuse RBC (11/26/2024 1:22 PM EDT) us Teetee E Toffey COARSE WIRE DRAWER BLOOD TRANSFUSION ORDERABL ES Final Result * Transfuse RBC: 1 Units (11/26/2024 1:22 PM EDT) us Teetee E Toffey COARSE WIRE DRAWER BLOOD TRANSFUSION ORDERABL ES Final Result * XR Chest 1 View (11/26/2024 11:29 AM EDT) Anatomical Region Laterality Modality Chest Digital Radiogra phy Impressions 11/26/2024 1:39 PM EDT Bilateral lower lobe airspace disease which may be due to atelectasis and/or infection. CRITICAL RESULT: No. COMMUNICATION: Per this written report. Drafted by Juan Trent MD on 11/26/2024 1:38 PM Final report signed by Juan Trent MD on 11/26/2024 1:39 PM Narrative 11/26/2024 1:39 PM EDT CLINICAL INDICATION: hypoxia TECHNIQUE: XR CHEST 1 VIEW COMPARISON: 06/26/2024 FINDINGS: Stable cardiomediastinal contour. Right IJ Vas-Cath present with the tip in region of the SVC. Airspace opacity in both lower lobes which may be due to atelectasis and/or infection. No large pleural effusion, pneumothorax, or acute osseous finding. Procedure Note Juan Trent MD - 11/26/2024 CLINICAL INDICATION: hypoxia TECHNIQUE: XR CHEST 1 VIEW COMPARISON: 06/26/2024 FINDINGS: Stable cardiomediastinal contour. Right IJ Vas-Cath present with the tipin region of the SVC. Airspace opacity in both lower lobes which may bedue to atelectasis and/or infection. No large pleural effusion,pneumothorax, or acute osseous finding. IMPRESSION: Bilateral lower lobe airspace disease which may be due to atelectasisand/or infection. CRITICAL RESULT: No. COMMUNICATION: Per this written report. Drafted by Juan Trent MD on 11/26/2024 1:38 PM Final report signed by Juan Trent MD on 11/26/2024 1:39 PM us Teetee E Toffey COARSE WIRE DRAWER IMG XR PROCEDURES Final Re sult * Prepare Leukocyte Reduced RBC: 1 Units (11/26/2024 11:20 AM EDT) Product Code [id number] BLOO D BANK Dispense Status Transfused BLOOD BANK Blood Expiration Date [id number] BLOOD BANK Unit Number [id number] CH B LOOD BANK Product Blood Type 9500 BLOOD BANK Blood Type O- BLOOD BANK Crossmatch Compatible BLOOD BANK Other us Teetee E Jose Gferafa COARSE WIRE DRAWER BLOOD BANK PRODUCT ORDERAB LES Final Result BLOOD BANK [address] [place] [address], * EKG now - STAT (adult) (11/26/2024 11:17 AM EDT) EKG DIAGNOSIS CLASS Borderline Normal MUSE ECG Ventricular Rate 54 BPM MUSE ECG Atrial Rate 54 BPM MUSE ECG CO Interval 178 ms MUSE ECG QRSD Interval 70 ms MUSE ECG QT Interval 440 ms MUSE ECG QTC Interval 417 ms MUSE ECG P [place] 38 degrees MUSE ECG R [place] 20 degrees MUSE ECG T Wave [place] -19 degrees MUSE ECG Diagnosis Sinus bradycardia with premature atrial complexes MUSE ECG Diagnosis Otherwise normal ECG MUSE ECG Diagnosis MUSE ECG Diagnosis Confirmed by Rahul Sexton ([id number]) on 11/26/2024 4:11:09 PM MUSE ECG 11/26/2024 11:1 7 AM EDT 11/26/2024 4:11 PM EDT Teetee E Jose Gfey COARSE WIRE DRAWER ECG ORDERABLES Final Resu lt MUSE ECG * Type and screen (11/26/2024 11:08 AM EDT) ABO/Rh O Positive 11/26/2024 11:00 AM EDT BLOOD BANK Antibody Screen Negative 11/26/2024 11:00 AM EDT BLOOD BANK Specimen Expiration 11/29/2024 23:59 11/26/2024 11:00 AM EDT BLOOD BANK Blood Venous blood specimen / Unknown Venipuncture / Unknown 11/26/2024 11:08 AM EDT 11/26/2024 11:17 AM EDT us Teetee Mooney ELIZABETH LAB BLOOD BANK TEST ORDERA BLES Final Result BLOOD BANK [address] [place] [address], * (ABNORMAL) Blood gas panel, venous (11/26/2024 11:08 AM EDT) pH, Venous 7.39 7.32 - 7.43 LAB HEMATOLOGY METHOD 11/26/2024 11:14 AM EDT [facility] pCO2, Venous 48 40 - 55 mmHg LAB HEMATOLOGY METHOD 11/26/2024 11:14 AM EDT [facility] pO2, Venous 46(H) 25 - 40 mmHg LAB HEMATOLOGY METHOD 11/26/2024 11:14 AM EDT [facility] SO2, Measured, Venous 81(H) 65 - 80 % LAB HEMATOLOGY METHOD 11/26/2024 11:14 AM EDT [facility] Base Excess, Venous 3.3(H) -2.0 - 3.0 mmol/L LAB HEMATOLOGY METHOD 11/26/2024 11:14 AM EDT [facility] Bicarbonate, Calculated, Venous 29(H) 22 - 26 mmol/L LAB HEMATOLOGY METHOD 11/26/2024 11:14 AM EDT [facility] Hematocrit, Whole Blood 23.2(L) 40.0 - 51.0 % LAB HEMATOLOGY METHOD 11/26/2024 11:14 AM EDT [facility] Sodium, Whole Blood 143 136 - 145 mmol/L LAB HEMATOLOGY METHOD 11/26/2024 11:14 AM EDT [facility] Potassium, Whole Blood 3.9 3.6 - 4.9 mmol/L LAB HEMATOLOGY METHOD 11/26/2024 11:14 AM EDT [facility] Chloride, Whole Blood 103 97 - 107 mmol/L LAB HEMATOLOGY METHOD 11/26/2024 11:14 AM EDT [facility] Glucose, Whole Blood 178(H) 74 - 99 mg/dL LAB HEMATOLOGY METHOD 11/26/2024 11:14 AM EDT [facility] Lactate, Venous, Whole Blood 0.8 0.5 - 2.2 mmol/L LAB HEMATOLOGY METHOD 11/26/2024 11:14 AM EDT [facility] Ionized Calcium, Whole Blood 4.3(L) 4.6 - 5.1 mg/dL LAB HEMATOLOGY METHOD 11/26/2024 11:14 AM EDT [facility] Blood Venous blood specimen / Unknown Venipuncture / Unknown 11/26/2024 11:08 AM EDT 11/26/2024 11:10 AM EDT us Teetee Mooney APRN LAB BLOOD ORDERABLES Final Result [facility] [address] [place] [address] * Phosphorus (11/26/2024 11:08 AM EDT) Phosphorus, Plasma 3.7 2.5 - 4.5 mg/dL 11/26/2024 11:32 AM EDT [facility] Blood Venous blood specimen / Unknown Venipuncture / Unknown 11/26/2024 11:08 AM EDT 11/26/2024 11:11 AM EDT us Teetee Mooney COARSE WIRE DRAWER LAB BLOOD ORDERABLES Final Result Performing Organization Address City/[facility]/ZIP Co de Phone Number [facility] [address] [place] [address] * (ABNORMAL) Magnesium (11/26/2024 11:08 AM EDT) Magnesium, Plasma 1.7(L) 1.9 - 2.4 mg/dL 11/26/2024 11:32 AM EDT [facility] Blood Venous blood specimen / Unknown Venipuncture / Unknown 11/26/2024 11:08 AM EDT 11/26/2024 11:11 AM EDT us Teetee Mooney COARSE WIRE DRAWER LAB BLOOD ORDERABLES Final Result [facility] [address] [place] [address] * (ABNORMAL) APTT (11/26/2024 11:08 AM EDT) aPTT 36(H) 25 - 35 sec 11/26/2024 11:27 AM EDT [facility] Blood Venous blood specimen / Unknown Venipuncture / Unknown 11/26/2024 11:08 AM EDT 11/26/2024 11:11 AM EDT us Teetee Mooney COARSE WIRE DRAWER LAB BLOOD ORDERABLES Final Result Performing Organization Address [facility]/ZIP Co de Phone Number [facility] [address] [place] [address] * PT-INR (11/26/2024 11:08 AM EDT) Prothrombin Time 13.8 12.0 - 14.3 sec 11/26/2024 11:26 AM EDT [facility] INR 1.1 0.9 - 1.1 11/26/2024 11:26 AM EDT [facility] Blood Venous blood specimen / Unknown Venipuncture / Unknown 11/26/2024 11:08 AM EDT 11/26/2024 11:11 AM EDT Narrative [facility] - 11/26/2024 11:26 AM EDT OPTIMAL INR RANGES FOR PATIENT ON ORAL ANTICOAGULANT THERAPY Prevention of venous thromboembolism INR 2.0 to 3.0 In patients with heart disease: Atrial fibrillation INR 2.0 to 3.0 Valvular heart disease INR 2.0 to 3.0 Tissue heart valves INR 2.0 to 3.0 Mechanical prosthetic valves INR 2.5 to 3.5 Prevention of recurrent TN INR 2.5 to 3.5 us Teetee Mooney COARSE WIRE DRAWER LAB BLOOD ORDERABLES Final Result Performing Organization Address City/[facility]/ZIP Co de Phone Number [facility] [address] [place] [address] * (ABNORMAL) CBC w/diff (11/26/2024 11:08 AM EDT) WBC Count 7.22 3.70 - 10.30 10*3/uL LAB HEMATOLOGY METHOD 11/26/2024 11:16 AM EDT [facility] RBC Count 2.52(L) 4.60 - 6.10 10*6/uL LAB HEMATOLOGY METHOD 11/26/2024 11:16 AM EDT [facility] HGB 7.5(L) 13.7 - 17.5 g/dL LAB HEMATOLOGY METHOD 11/26/2024 11:16 AM EDT [facility] HCT 24.9(L) 40.0 - 51.0 % LAB HEMATOLOGY METHOD 11/26/2024 11:16 AM EDT [facility] Platelet Count 169 155 - 369 10*3/uL LAB HEMATOLOGY METHOD 11/26/2024 11:16 AM EDT [facility] MCV 99(H) 79 - 98 fL LAB HEMATOLOGY METHOD 11/26/2024 11:16 AM EDT [facility] MCH 29.8 26.0 - 32.0 pg LAB HEMATOLOGY METHOD 11/26/2024 11:16 AM EDT [facility] MCHC 30.1(L) 30.7 - 35.5 g/dL LAB HEMATOLOGY METHOD 11/26/2024 11:16 AM EDT [facility] RDW 18.1(H) 11.5 - 14.5 % LAB HEMATOLOGY METHOD 11/26/2024 11:16 AM EDT [facility] MPV 10.3 8.8 - 12.5 fL LAB HEMATOLOGY METHOD 11/26/2024 11:16 AM EDT [facility] nRBC 0.0 <=0.0 per 100 WBCs LAB HEMATOLOGY METHOD 11/26/2024 11:16 AM EDT [facility] Differential Type Automated LAB HEMATOLOGY METHOD 11/26/2024 11:16 AM EDT [facility] Neutrophils % 73 % LAB HEMATOLOGY METHOD 11/26/2024 11:16 AM EDT [facility] Lymphocytes % 18 % LAB HEMATOLOGY METHOD 11/26/2024 11:16 AM EDT [facility] Monocytes % 7 % LAB HEMATOLOGY METHOD 11/26/2024 11:16 AM EDT [facility] Eosinophils % 2 % LAB HEMATOLOGY METHOD 11/26/2024 11:16 AM EDT [facility] Basophils % 0 % LAB HEMATOLOGY METHOD 11/26/2024 11:16 AM EDT [facility] Immature Granulocytes % 0 % LAB HEMATOLOGY METHOD 11/26/2024 11:16 AM EDT [facility] Neutrophils Absolute 5.14 1.60 - 6.10 10*3/uL LAB HEMATOLOGY METHOD 11/26/2024 11:16 AM EDT [facility] Lymphocytes Absolute 1.33 1.20 - 3.90 10*3/uL LAB HEMATOLOGY METHOD 11/26/2024 11:16 AM EDT [facility] Monocytes Absolute 0.52 0.30 - 0.90 10*3/uL LAB HEMATOLOGY METHOD 11/26/2024 11:16 AM EDT [facility] Eosinophils Absolute 0.17 0.00 - 0.50 10*3/uL LAB HEMATOLOGY METHOD 11/26/2024 11:16 AM EDT [facility] Basophils Absolute 0.03 0.00 - 0.10 10*3/uL LAB HEMATOLOGY METHOD 11/26/2024 11:16 AM EDT [facility] Immature Granulocytes Absolute 0.03 0.00 - 0.06 10*3/uL LAB HEMATOLOGY METHOD 11/26/2024 11:16 AM EDT [facility] Blood Venous blood specimen / Unknown Venipuncture / Unknown 11/26/2024 11:08 AM EDT 11/26/2024 11:10 AM EDT Narrative [facility] - 11/26/2024 11:16 AM EDT Therapeutic decision making should be based on absolute values, rather than percentages. us Teetee Mooney APRN LAB BLOOD ORDERABLES Final Result [facility] [address] [place] [address] * (ABNORMAL) CMP (11/26/2024 11:08 AM EDT) Glucose, Plasma 178(H) 74 - 99 mg/dL 11/26/2024 11:32 AM EDT [facility] BUN, Plasma 36(H) 8 - 23 mg/dL 11/26/2024 11:32 AM EDT [facility] Creatinine, Plasma 6.06(H) 0.70 - 1.20 mg/dL 11/26/2024 11:32 AM EDT [facility] BUN/Creatinine Ratio 6 11/26/2024 11:32 AM EDT [facility] Sodium, Plasma 141 136 - 145 mmol/L 11/26/2024 11:32 AM EDT [facility] Potassium, Plasma 4.1 3.6 - 4.9 mmol/L 11/26/2024 11:32 AM EDT [facility] Chloride, Plasma 102 97 - 107 mmol/L 11/26/2024 11:32 AM EDT [facility] CO2, Plasma 25 22 - 29 mmol/L 11/26/2024 11:32 AM EDT [facility] Anion Gap 14 6 - 16 mmol/L 11/26/2024 11:32 AM EDT [facility] Total Calcium, Plasma 8.3(L) 8.9 - 10.2 mg/dL 11/26/2024 11:32 AM EDT [facility] Total Protein 5.8(L) 6.3 - 7.9 g/dL 11/26/2024 11:32 AM EDT [facility] Albumin, Plasma 3.1(L) 3.5 - 5.2 g/dL 11/26/2024 11:32 AM EDT [facility] AST, Plasma 14 10 - 50 U/L 11/26/2024 11:32 AM EDT [facility] ALT, Plasma 13 10 - 50 U/L 11/26/2024 11:32 AM EDT [facility] Alkaline Phosphatase, Plasma 55 40 - 115 U/L 11/26/2024 11:32 AM EDT [facility] Total Bilirubin, Plasma 0.2 0.2 - 1.1 mg/dL 11/26/2024 11:32 AM EDT [facility] eGFRcr 8.6 mL/min/1.7 3m*2 11/26/2024 11:32 AM EDT [facility] Comment:Reported eGFRcr in m L/min/1.73m2 is based the CKD-EPI 2020 equation that does not use a race coefficient. Blood Venous blood specimen / Unknown Venipuncture / Unknown 11/26/2024 11:08 AM EDT 11/26/2024 11:11 AM EDT us Teetee Mooney APRN LAB BLOOD ORDERABLES Final Result [facility] [address] [place] [address] * (ABNORMAL) POCT glucose meter (11/26/2024 10:54 AM EDT) [facility] POCT Glucose 164(H) 74 - 99 mg/dL 11/26/2024 10:57 AM EDT [facility] Comment:Accuracy of a glucos e result obtained from a capillary whole blood specimen relies upon adequate, non-compromised capillary blood flow. If the capillary glucose result is not consistent with the patient's clinical signs and symptoms, glucose testing should be repeated with either an arterial or venous sample on the glucometer or sent to the main labortory for testing. Comment 11/26/2024 10:57 AM EDT [facility] Ophthalmic Surgeon ID Ekaterina Miller 10:57 AM EDT [facility] Device ID [id number] 11/26/2024 10:57 AM EDT [facility] Specimen Type POC Capillary 11/26/2024 10:57 AM EDT [facility] Blood Capillary blood specimen / Unknown 11/26/2024 10:54 AM EDT 11/26/2024 10:57 AM EDT Generic Provider Poct LAB POINT OF CARE TEST DOCKED DEVICE UNSOLICITED RESULTS Final Result Performing Organization Address City/[facility]/ZIP Co de Phone Number [facility] [address] [place] [address] documented in this encounter Visit Diagnoses Diagnosis Hypotension due to blood loss- Primary ESRD (end stage renal disease) ([facility]) End stage renal disease documented [...] documented as of this encounter Care Teams Curtain Fitter Relationship Specialty Start Date End Date Oz Ramos MD [address] [place] [address] [address] [place] [address] PCP - General 10/07/20 John Joseph MD [address] [place] [address] Consulting Physician Urology 02/04/23 Cheyenne Mitchell, COARSE WIRE DRAWER, DNP [address] [place] [address] Nurse Practitioner Urology 05/13/24 documented as of this encounter
--- OUTSIDE RECORDS SUMMARY | 2024-12-07 10:00 | XMS_ITS | Encounter Summary ---
Author Organization [facility] Address [address] 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 Meds * Agents No agents on file. * Blood No blood administrations on file. Lines, Drains, and Airways Type Details Placement Removal Wound 09/11/24; 1156; N; Y es; Surgical; Open Surg; Arm; Left, Upper 09/11/24 1156 by May Rizo RN Wound 10/07/24; 1428; N; Y es; Surgical; (dilation); Inner 10/07/24 1428 by Leilani Shipman documented in this encounter Social History Tobacco [...] in the past 12 m [facility], were you homeless or living in a fdc (including now)? 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 0 06/18/2024 CAGE Questionnaire Score 0 025 Utilities Answer Date Recorded In the past 12 months has e [place], gas, oil, or water company threatened to [...] Sign Reading Time Taken Comments Blood Pressure - - Pulse - - Temperature - - Respiratory Rate - - Oxygen Saturation - - Inhaled Oxygen Concentration - - Weight 58.1 kg (128 lb) 12/07/2024 4:15 PM EDT Height - - Body Mass Index 17.85 11/26/2024 10:50 AM EDT documented in this encounter Miscellaneous Notes * Mehreen Pride - Sun Dean PA - 12/07/2024 4:35 PM EDT Images from the original note were not included. 40 Bathing Before Surgery Basic instructions ?? You need to bathe with Hibiclens (chlorhexidine) before surgery. This will clean your skin and remove germs that live on the skin. This reduces your risk of infection after surgery. ?? You can buy Hibiclens at most drug stores. ?? You need to bathe with Hibiclens twice before surgery - once the night before surgery and again the morning of surgery. ?? Do not use Hibiclens on your hair or anywhere above the neck. ?? You should not shave with a razor or use hair removal creams near the surgery site for 4 days before surgery. Night before surgery If you take a shower or tub bath: 1. Wash with regular soap and water and rinse off. 2. You may wash your hair the night before or the morning of surgery. Shampoo and rinse as usual. 3. Pour 1 ounce (2 tablespoons) of Hibiclens on a clean washcloth. Wash the area where you will be having your surgery first. Then wash the rest of the body, leaving the groin area until last. 4. Allow the Hibiclens to stay on the skin for 5 minutes, then rinse off completely. 5. Use a clean towel to dry off. 6. Put on clean clothing and be sure to have clean sheets on your bed. ? If you take a bed bath: 1. Wash with regular soap and water and rinse off. 2. Place 1 ounce (2 tablespoons) of Hibiclens solution in a wash basin of clean water. Wash the area where you will be having surgery first. 3. Then wash the rest of the body. Leave the groin area until last. 4. Allow the Hibiclens to stay on the skin for 5 minutes. Then rinse off completely. 5. Use a clean towel to dry off. 6. Put on clean clothing. Be sure to have clean sheets on your bed. Morning of surgery ?? Repeat the above steps. You are now ready for surgery with the cleanest possible skin! If you develop a skin problem between now and your surgery, please tell your doctor as soon as possible! * Mehreen [facility] - Sun Dean PA - 12/07/2024 4:35 PM EDT Images from the original note were not included. 1072 Patient Surgery Guide The doctors and staff of [facility] would like to welcome you, your family, and friends to HealthCare. We offer access to more than 1,500 doctors from many specialty areas. Our goal is to provide high-quality, patient-centered care throughout your experience. We have a team approach tosurgery, and you and your family are an important part of our team. Surgeons, surgical nurses, anest hesiologists, dietitians, social workers, pharmacists, and others will work with you to decide the best plan of care for you. We understand surgery is a stressful time. This information will help you be more comfortable with [facility] and the surgical process. This information provides an overview answering many of yourquestions. But if you have further questions, please ask your doctor or nurse. Preoperative Anesthesia Clinic Your doctor may ask you to go to the Preoperative Anesthesia Clinic before your surgery. This visitallows us to evaluate your overall health and reduce the chance of delays or cancellation on the day of surgery. Please bring a complete list of the medicines your currently take. Bring any recent test reports you may have, including blood work, EKG, X-rays. Bring the results of any recent heart evaluation, including doctor?s notes and test reports. If you are not scheduled for a Preoperative Anesthesia Clinic visit, a nurse will call you to go over your health history and give you information about your surgery. It is very important you speak to a nurse before your surgery. The Preoperative Anesthesia Clinic is located on the first floor of the [facility] near the Pharmacy and main clinic entrance. We are open Saturday-Saturday from 8 a.m. to 4:30 p.m. A clinic construction representative can be reached at [phone]. Parking is available in the [facility] garage on [facility] or in the [facility] garage located at [address] [place] [address], directly across [facility] from [facility]. The day before surgery You will receive a phone call telling you what time you need to arrive at the hospital for surgery.If you miss the call, please call one of the following numbers (depending on where your surgery is scheduled): ?? [facility]: [phone] or [phone] ?? [facility]: [phone] or [phone] The day of surgery ?? Arrive on time to avoid delays or cancellation. ?? Park in the [facility] parking garage located at [address] It is directly across [facility] from the [facility]. ?? If you are scheduled for surgery at [facility], take the hospital garage elevator to Level C, then cross the concourse bridge to the Surgery Waiting Room to register for your surgery. The Surgery Waiting Room is located down the first hallway to the right at the end of the concourse bridge. If you need help crossing the concourse, you may garbage pick up worker the patient golf cart shuttle directly to the right of the elevators on Level C. ?? If you are scheduled for surgery at the [facility], take the garage elevator [address] A and catch the free shuttle to the hospital. (Be careful not to take the [facility] shuttle - there is an ambassador there who can help you.) Exit the shuttle at the first shuttle stop, then proceed to the registration desk to the right of the entrance. ?? Registration staff will take your insurance information and confirm your name, birthday, addressand other information. When you arrive After you register, we will take you to the preoperative area. Here the nurses will get you ready for surgery. Visitors are limited in the preoperative area. Nurses will: ?? Allow you to change into a hospital gown. ?? Check your arm band for your name and birthday. Your arm band will be checked many times throughout your stay at [facility] to ensure your safety. ?? Go over your health history. ?? Review your medicines and allergies. ?? Check your temperature, blood pressure, heart rate, height and weight. ?? Start an IV. ?? Tell you what to expect during your stay at the hospital. During surgery Your family and friends will be directed to the Surgery Waiting Room. There they will receive regular updates during your surgery. Your doctor will talk to them after your surgery. A parts clerk plant maintenance is available in the waiting room to help family and visitors. Space is limited, so please limit the number of people who come with you for your surgery. After surgery We will take you to a special area called the Post-Anesthesia Care Unit, or ?PACU.? There nurses will take care of you as you recover from surgery. Most patients will stay in the PACU for about 1-2 hours. Some people might need to stay longer. During this time the doctors and nurses will: ?? Keep your pain level as low as possible. ?? Help keep you from being sick to your stomach. ?? Make sure you are warm and comfortable. ?? Update your family on how you are doing. The anesthesia doctor will decide when you can go home or to your room. If you are going home after surgery: A nurse will give you and your family instructions on how to care for yourself when you go home. You will also get written instructions. This information will tell you how to schedule a follow-up appointment if an appointment is not scheduled before you leave, and how to contact your surgeon. If you are staying in the hospital after surgery: You will stay in the PACU until you are assigned a room. Your family and friends may visit you once you get to your hospital room. Parents of children or caregivers of special needs patients may remain in the preoperative area forthe entire time. They will be allowed in the PACU as soon as possible after the operation. At home ?? Plan to go straight home to rest when you leave the hospital. If you wish, your medicines to take home can be brought to your room before you leave. ?? Follow your doctor?s instructions about rest, what to eat, what you can and cannot do, which medicines to take and when you may return to your normal activities. ?? Be sure to keep your follow-up appointment with your doctor. You should be scheduled for a clinic appointment before you leave the hospital. Special reminders If you take insulin or other medicine for diabetes, the doctor will tell you what dose to take before your surgery. This will probably be different from your normal dose. Please bring your insulin with you on the day of surgery. If you are taking a blood thinner (for example: Coumadin, Plavix, aspirin, etc.), please tell your surgeon and anesthesia doctor. For all other medicines, you will receive instructions during your Anesthesia Preoperative Clinic visit or phone screening. Updates from the operating room It is important to protect your privacy when you are in the hospital. We also want to make it easy for your family to find out how you are doing while you are in surgery. To do this, on the day of your surgery a nurse will ask you to choose a password and share it with just one family member or friend. This password will then be put on your chart. When your family member calls to check on your condition, he or she must give the password to the nurse. The nurse will look on your chart to make sure it is the correct password and then give the person information on your condition. If you have any questions about this process, please ask. Our mission is to give you the very best care, including protecting your privacy. Feel better faster You should take walks if possible and do plenty of deep breathing. This will help you feel better more quickly after surgery. Walking and deep breathing help prevent blood clots and pneumonia and mayhelp ease any muscle soreness. Surgery do's ?? Be sure to bring your current insurance card and a picture ID. ?? Please bring copies of the following,if you have them: living will, health care surrogate, powerof deputy attorney general or guardianship papers. ?? Bring a responsible adult to drive you home (or ride with you in a taxi) if you are having outpatient surgery. ?? Plan to have someone stay with you at home for 24 hours after your surgery. ?? Bring a list of your current medicines, including how much you take and when you take it. You may also just bring the medicines (in their original containers) with you. ?? Tell your doctor about any allergies you have to medicines or food. ?? Wear comfortable, loose-fitting clothes and low-heeled shoes. ?? Bring a case to store glasses, contact lenses or dentures during surgery. Label the containers with your name. ?? Pack an overnight bag that includes personal care items, such as a toothbrush and lotion, if youare staying in the hospital. ?? Bring a parent or guardian if you are younger than 18. ?? Bring a favorite toy or blanket for children having surgery. Surgery don'ts ?? Starting at midnight, don?t eat anything on the day of your surgery. ?? Don?t drink anything after midnight (unless told otherwise by your doctor or nurse) the day before your surgery. ?? Don?t smoke, use smokeless tobacco, eat mints or chew gum after midnight the day of your surgery. ?? Don?t drink alcohol 24 hours before your surgery. ?? Don?t wear makeup, jewelry (including body piercing) or nail bulgarian. ?? Don?t bring money or valuables to the hospital. ?? Don?t drive a motor vehicle for 24 hours after your surgery. ?? Don?t make important decisions or sign any legal documents for 24 hours after your surgery. ?? Don?t drink alcohol or take medicine not prescribed by your doctor for 24 hours after your surgery. Need to cancel? If you decide not to have surgery or if you need to cancel because of a fever, a breathing or viralillness, or a family emergency, please call your surgeon?s office and the Preoperative Anesthesia Clinic at [phone] or [phone]. If it is the day of surgery, call the location where you are scheduled to have your surgery: [facility] at [phone] or [phone] or [facility] at [phone] or [phone]. For more information Visit www.[email or web address] or call [phone] or [phone]. [facility] does not discriminate. [facility] complies with applicable Federal civil rights laws and does not discriminate on the basis of race, color, national origin, age, disability, or sex. * Mehreen [facility]amanFORMERLY [facility] - Sun Dean PA - 12/07/2024 4:35 PM EDT Images from the original note were not included. 489 Map to [facility] Facilities Directions Easy directions to and from [address] (from [address]) Directions from I-75/[place]-64 to the [facility] Parking Garage: ?? From [address], turn right off the exit ramp onto [address] ([place] [address] [address]) toward [place]. ?? In 4.1 miles, turn left onto [address] (at the [employer] gas station). ?? In a half-mile, turn right onto [address]. ?? In .3 miles, turn right onto [address] (just past the [employer] gas station). Garage entrance is on the left. ?? Important: This garage address will change to [address] [place] [address] on November 24, 2024. Directions from [facility] Parking Garage to I-75/[place]-64: ?? Turn left out of the garage onto [facility]. ?? Turn left onto [address]. ?? In .3 miles, turn left down [address] ?? In a half-mile, turn right onto [address] (at the [employer] gas station). In 4.1 miles, merge onto [address] /[address] (near the [employer] by [employer]). Parking Any patients or visitors of [facility] can park in the following areas: ?? HealthCare Parking Garage (main garage): [address] (Levels A-F) ?? [facility] Garage: [address] (Levels 1-6) ?? [facility] lot: Located off [address] (limited parking for [facility] outpatients only). Upon Your Arrival ?? Patients and visitors going to Pavilion A, H, G and [facility] may walk acrossthe pedway, located at Level C of the main parking garage ([address] or take the free shuttle from Level A. Golf carts are available on the pedway. ?? Patients and visitors going to all other hospital pavilions are encouraged to take a free shuttle at Level A of the main garage. ?? Emergency Department (ED) patients in need of immediate treatment may be dropped off at the ED entrance at the 15-minute dropoff area. Vehicles in this lot must be moved to the main hospital garage after 15 minutes. The ED may also be accessed via the pedway off the main hospital garage on Level C. If you need a shuttle to the ED, one can be called for you at Level A of the main garage or contact any of the information desks, . Additional Information For additional information, please visit our information desks located throughout [facility]. Information desks have additional maps and resources. Information desks are located at the main entrances of: Pav[facility] (first floor and ground floor), [facility], [facility] H, [facility] CC, [facility], [facility] (first and third floor), and [facility]. Informationdesk number: [phone]. Important Addresses [address] [place] [address] ?? [facility] entrance ?? Pavilion A [facility] G ([facility]) ?? Emergency Department [address] ?? Pav[facility] H ?? [facility] CC ([facility]) ?? [facility] ([facility]) ?? [facility] [address] [facility] ?? [facility] [address] [facility] ?? [facility] [address] [facility] ?? [facility] * PAT Evaluation Note - Sun Dean PA - 12/07/2024 10:00 AM EDT Images from the original note were not included. HPI Nader Briggs is a 84 y.o. male who presents with Pre-op Diagnosis of ESRD (end stage renal disease) now scheduled for REVISION, AV FISTULA, UPPER EXTREMITY (Left)with Carolee Gr MD on 12/25/2024 at [facility] Past Medical History[1] Family History[2] Social History[3] SURGICAL HISTORY: Surgical History[4] Allergies[5] MEDICATIONS: Current Medications[6] ROS Anesthesia: Date of last anesthetic: Most recent anesthesia ~ 10/07/2024 SUSPENSION MICROLARYNGOSCOPY WITH LYSIS OF WEB, FLEXIBLE ESOPHAGOSCOPY WITH BALLOON DILATION Difficult Airway: Yes Final Airway Type: endotracheal airway Mask Difficulty Assessment: 2 - vent by mask + OA or adjuvant +/- NMBA (2 handed mask + oral airway) Final Endotracheal Airway: ETT, FINANCE BUSINESS MANAGER Cuffed: Yes Cormack-Lehane Classification: grade IIb - view of arytenoids or posterior of glottis only Technique Used For Successful Placement: video laryngoscopy Devices/Methods Used in Placement: intubating stylet, Bougie Insertion Site: oral Blade Type: (LoPro S3) ETT Size (mm): 6.0 history of previous anesthesia and difficult intubation. Does not have a history of anesthetic complications, a history awareness of surgery under anesthesia, a history of delayed emergence, malignant hyperthermia, obstructive sleep apnea, PONV and a history of prolonged emergence. Cardiovascular: CAD, hyperlipidemia and a murmur. Does not have angina, CHF, dysrhythmias, pacemaker or past [place]. hypertension: is well controlled. Does not have chest pain. Cardio additional comments: Denies any active current cardiac complaints. + trace pulmonic and tricuspid regurgitation + minimal activity; can walk I apt complex but no stamina. Respiratory: no asthma: no COPD: Has not had an upper respiratory infection in last 30 days. Has not had bronchitis in the last 30 days, pneumonia in the last 30 days or COVID in the last 30 days. HEENT: difficulty swallowing and chipped teeth.Does not have loose teeth.Does not have temporomandibular joint syndrome. hearing loss. 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 Neurological: Does not have headaches. no seizures: Did not have a cerebrovascular accident.TIA (TIAs 2013, 2019). Neuro additional comments: + S/P Left carotid stent; stenosis on Right ICA Musculoskeletal: arthritis (S/P THR). cervical spine limited mobility. Gastrointestinal: GERD: well controlled.esophageal stricture. Does not have cirrhosis or hepatitis. GI/ additional comments: + Aquino's esophagus + simple renal cysts Genitourinary: chronic renal disease: ESRDprostate cancer (prostate cancer s/p TURP) and renal calculi. Does not have recurrent UTIs or renal disease. Hematological/Lymphatic: History of no DVT. History of no pulmonary embolism. Not in a hypercoagulable state. no history of chemotherapy history of radiation (neck) Does not have MRSA or tuberculosis. Endocrine/Metabolic: diabetes mellitus (not as many issue with weight loss). thyroid disorder (hypothyroidism). gout. 11/26/2024 05/29/2024 ECHO: Left Ventricle The left ventricle is normal size. There is normal left ventricular myocardial thickness and mass. The left ventricular systolic function is normal. The LVEF as measured by biplane volume is 60%. The diastolic function is indeterminate. The left ventricular wall motion is normal. Right Ventricle The right ventricle is normal in size. The right ventricular systolic function is normal. Unable to estimate the right ventricular systolic pressure (RVSP) due to inadequate TR signal. Left Atrium The left atrial size is moderately increased with an indexed volume of 42-48 mL/m2. Theinteratrial septum is intact with no evidence for an atrial septal defect. Right Atrium The right atrial size is normal. Aortic Valve The aortic valve appears to be trileaflet. There is calcification of the aortic valve leaflets. There is aortic annular calcfication present. There is no valvular regurgitation. There isno hemodynamically significant valvular aortic stenosis. Mitral Valve The mitral valve leaflets are normal in appearance with no evidence of mitral valve prolapse. There is trace mitral regurgitation. There is no mitral stenosis. Tricuspid Valve The tricuspid valve is normal in appearance. There is trace tricuspid regurgitation. There is no tricuspid stenosis. Pulmonic Valve The pulmonic valve is normal in appearance. There is trace pulmonic regurgitation. There is no pulmonic stenosis. Great Vessels The aortic root is normal in size. The sinus of Valsalva (aortic root) diameter is 32mm by leading edge to leading edge method. In the maximally visualized portion, the ascending aortaappears normal in size. In the maximally visualized portion, the aortic arch appears normal in size. The main pulmonary artery is not well visualized. IVC/SVC The IVC was not well visualized, and an assumed pressure of 8mmHg was used for calculations. Pericardium No pericardial effusion. Lab Results Component Value Date WBC 7.22 11/26/2024 HGB 7.5 (L) 11/26/2024 HCT 24.9 (L) 11/26/2024 MCV 99 (H) 11/26/2024 PLT 169 11/26/2024 Lab Results Component Value Date GLUCOSE 178 (H) 11/26/2024 BUN 36 (H) 11/26/2024 CREATININE 6.06 (H) 11/26/2024 BCR 6 11/26/2024 NA 141 11/26/2024 K 4.1 11/26/2024 CL 102 11/26/2024 CO2 25 11/26/2024 CA 9.0 11/13/2017 ALBUMIN 3.1 (L) 11/26/2024 ALKPHOS 55 11/26/2024 BILITOT 0.2 11/26/2024 Lab Results Component Value Date HGBA1C 6.4 (H) 05/28/2024 Lab Results Component Value Date INR 1.1 11/26/2024 INR 1.0 06/23/2024 INR 1.1 06/02/2024 Visit Vitals Wt 58.1 kg (128 lb) BMI 17.85 kg/m?? Smoking Status Never BSA 1.71 m?? Physical Exam Anesthesia Plan ASA 4 Anesthesia technique(s) discussed with the patient/family: general Comment: JAYDE phone screen. Reviewed with pt's daughter, Martine Briggs JAKY Lisa [1] Past Medical History: Diagnosis Date Anemia Aquino's esophagus Cancer of neck (CMS/HCC) with radiation Carotid artery occlusion 2018 Chronic cough Conversions - Other Nephrolithiasis Dental disease Diabetes mellitus (CMS/HCC) hasn't been on medication since 2024. 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 Hyperlipidemia Hypertension Kidney stone Skin cancer Stroke (CMS/HCC) TIA (transient ischemic attack) 2013 [2] Family [...] N/A Carotid artery angioplasty and stenting from [facility] CAROTID ENDARTERECTOMY 209 CAROTID STENT 2018 CHOLECYSTECTOMY NECK SURGERY N/A Neck Surgery from [facility] PROSTATE SURGERY N/A Prostate Surgery from [facility] THROAT SURGERY 10/08/2024 TOTAL HIP ARTHROPLASTY N/A Hip Replacement from [facility] [5] Allergies Allergen Reactions Nsaids Unknown - Patient states they do not know rxn details and Nausea Renal [6] Current Outpatient Medications: aspirin, Take 1 tablet [...] carvedilol, Take 1 tablet by mouth 2 times a day. clopidogrel, Take 1 tablet by mouth nightly. ferrous sulfate, Take 2 tablets by mouth daily with breakfast. Do not crush, chew, or split. levothyroxine, Take 1 tablet by mouth daily before breakfast. NIFEdipine CC, TAKE 1 TABLET BY MOUTH DAILY BEFORE BREAKFAST DO NOT CRUSH, CHEW, OR SPIT. omeprazole, Take 1 capsule by mouth nightly. PreviDent 5000 Booster Plus, APPLY A THIN RIBBON TO THE TOOTHBRUSH AND BRUSH THOROUGHLY ONCE DAILY valsartan, Take 1 tablet (160 mg) by mouth 1 (one) time each day. (Patient taking differently: Take1 tablet by mouth daily. Held this AM) acetaminophen, Take 20.3 mL by mouth every 4 hours as needed for moderate pain. ipratropium, Administer 2 sprays into each nostril 3 times a day as needed. (Patient not taking: Reported on 12/07/2024) NIFEdipine CC, Take 1 tablet (60 mg) by mouth daily before breakfast. Do not crush, chew, or split. * Preprocedure Instructions - Sun Dean PA - 12/07/2024 10:00 AM EDT Home Medication Instructions Current Medications Medication Instructions aspirin 81 MG EC tablet Take morning of surgery per surgeon atorvastatin (Lipitor) 20 MG tablet Take night before surgery B complex-vitamin C-folic acid (Nephro-Jose J) 0.8 MG tablet Hold day of surgery calcitriol (Rocaltrol) 0.25 MCG capsule Hold day of surgery calcium acetate (Phoslo) 667 MG capsule Hold day of surgery carvedilol (Coreg) 25 MG tablet Take morning of surgery clopidogrel (Plavix) 75 MG tablet Take night before surgery per surgeon ferrous sulfate 324 (65 Fe) MG EC tablet Hold day of surgery levothyroxine (Synthroid, Levoxyl) 100 MCG tablet Take morning of surgery NIFEdipine CC (Adalat CC) 60 MG 24 hr tablet Take morning of surgery omeprazole (PriLOSEC) [address] capsule Take night before surgery PreviDent 5000 Booster Plus 1.1 % paste Take as prescribed valsartan (Diovan) 160 MG tablet Hold day [...] card, photo ID, along with power of deputy attorney general, guardianship or advanced directives if applicable Do [...] to arrival for surgery for low glucose documented in this encounter Plan of Treatment Upcoming Encounters Date Type Department Care Team (Latest Contact Info) Description 12/25/2024 7:30 AM EDT Hospital Encounter [facility] [address] [place] [id number] Carolee Gr MD [address] [phone] 12/25/2024 7:30 AM EDT Anesthesia Event [facility] [address] [place] [address] Sun Dean PA [address] [place] [address] 12/25/2024 7:30 AM EDT - 12/25/2024 10:00 AM EDT Surgery [facility] [address] [place] [phone] Carolee Gr MD [address] [place] [address] REVISION, AV FISTULA, UPPER EXTREMITY [86538 (CPT )] 05/03/2025 8:00 AM EST Appointment [facility] Ultrasound [address] [place] [address] 2025 1:00 PM EST [facility] [address], [address] [place] [address] Rudy Andersen MD [address] [place] [address] 05/13/2025 8:10 AM EST Office Visit [facility] Urology [address], [address] [place] [address] Cheyenne Mitchell, CASHIER PARKING LOT, DNP [address] [place] [address] Scheduled Procedures Name Priority Associated Diagnoses Date/Ti me REVISION, AV FISTULA OR GRAFT, UPPER EXTREMITY ESRD (end stage renal disease) ([facility]) 12/25/2024 7:30 AM EDT documented as of this encounter Goals Goal Patient Goal Type Associated Problems Recent Progress Patient-Stated? Author Autogenera kp Goal Care Plan Autogenerated Problem No Purnima Calhoun documented as of this encounter Visit Diagnoses Not on filedocumented in this encounter Additional Health Concerns Active [...] documented as of this encounter Care Teams Drain Tile Machine Operator Relationship Specialty Start Date End Date Oz Ramos MD [address] [place] [address] #1 #1 E[place] Damian [address] PCP - General 10/07/20 John Joseph MD [address] [place] [address] Consulting Physician Urology 02/04/23 Cheyenne Mitchell APRN, [facility] [address] [place] [address] Nurse Practitioner Urology 05/13/24 documented as of this encounter
--- NOTE | 2024-12-07 22:08 | ECG_ITS ---
APPROVED REPORT Exam: Resting ECG HR:78 bpm ECG Measurements Heart Rate 78 AXES ND 152 P 82 QRSd 86 QRS 58 QT 369 T 50 QTc 402 Conclusion SINUS RHYTHM WITH OCCASIONAL SUPRAVENTRICULAR PREMATURE COMPLEXES SEPTAL MYOCARDIAL INFARCTION , OF INDETERMINATE AGE [40+ ms Q WAVE IN V1/V2] No STEMI Electronically signed by : KARL LITTLE, 12/08/2024 00:10:02
--- OUTSIDE RECORDS SUMMARY | 2024-12-07 22:12 | XMS_ITS | Encounter Summary ---
Author Organization [employer] ([place], [place], [place], [place]) Address [address] [place] [address] Care Team Providers Care Audio Video Mechanic Name Role Phone Unavailable Primary Care Provider Unavailabl e Encounter Details Date Type Department Care Team (Late st Contact Info) Description 12/03/2018 Transcribed Document [facility] Radiology [address] [place] [address] Max Estrada MD [address] [place], [place] [id number] Social History Tobacco Use Types Packs/Day Years Used Date Smoking Tobacco: Never Assessed Sex and Gender Information Value Date Recorded Sex Assigned at Male 11/21/2021 1:59 PM CDT Legal Sex Male 1:59 PM CDT Gender Identity Male 11/21/2021 1:59 PM CDT Sexual Orientation Not on file documented as of this encounter Miscellaneous Notes * Cerner Conversion Note - Max Estrada MD - 12/03/2018 1:49 PM EDT DATE [...] Jared Ramos. 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 We went ahead and consulted Dr. Fofana's in [facility]. Dr. Estrada changed his Coreg [...] 12. Vitamin B complex p.o. daily. 13. Clyde-3 1000 mg p.o. daily. 14. MiraLAX 17 [...]
--- OUTSIDE RECORDS SUMMARY | 2024-12-07 22:12 | XMS_ITS | Encounter Summary ---
Author Organization [facility] [place] Address [address] [place] [address] Care Team Providers Care Top Cleaner Name Role Phone Oz Ramos MD Primary Care Provider [phone] John Joseph MD Unavailable [phone] Cheyenne Mitchell APRN, DEVI Unavailable [phone] Encounter Details Date Type Department Care Team (Latest Contact Info) Description 11/26/2024 Travel Social History Tobacco Use Types Packs/Day [...] any time in the past [address] [facility], were you homeless or living in a senior living (including now)? No 06/19/2024 AUDIT-C Answer Date [...] drink first t jeff in the morning (EYE-TECHNICAL SPEC) to steady your nerves or to get [...] Knight RN documented as of this encounter Plan of Treatment Upcoming Encounters Date Type Department Care Team (Latest Contact Info) Description 12/25/2024 7:30 AM EDT Hospital Encounter [facility] [address] [place] [address] Carolee Gr MD [address] [phone] 12/25/2024 7:30 AM EDT Anesthesia Event [facility] [address] [place] [address] Sun Dean PA [address] [place] [address] 12/25/2024 7:30 AM EDT - 12/25/2024 10:00 AM EDT Surgery [facility] [address] [place] [address] Carolee Gr MD [address] [place] [address] REVISION, AV FISTULA, UPPER EXTREMITY [81728 (CPT )] 05/03/2025 8:00 AM EST Appointment [facility] Ultrasound [address]nd [place] [address] 2025 1:00 PM EST [facility] Visit [facility] [address], [address]rd [place] [address] Rudy Andersen MD [address] [place] [address] 05/13/2025 8:10 AM EST Office Visit [facility] Urology [address], [address] [place] [address] Cheyenne Mitchell, CORNETIST, DNP [address] [place] [address] Scheduled Procedures Name Priority Associated Diagnoses Date/Ti me REVISION, AV FISTULA OR GRAFT, UPPER EXTREMITY ESRD (end stage renal disease) ([facility]) 12/25/2024 7:30 AM EDT documented as of [...] documented as of this encounter Care Teams Top Cleaner Relationship Specialty Start Date End Date Oz Ramos MD [address] [place] [address] #1 #1 E[place] Dam[place] [address] PCP - General 10/07/20 John Joseph MD [address] [place] [address] Consulting Physician Urology 02/04/23 Cheyenne Mitchell APRN, DNP [address] [place] [address] Nurse Practitioner Urology 05/13/24 documented as of this encounter
--- OUTSIDE RECORDS SUMMARY | 2024-12-07 22:12 | XMS_ITS | Encounter Summary ---
Author Organization [employer] ([place], [place], [place], [place]) Address [address] [place] [address] Care Team Providers Care Armored Car Guard And Driver Name Role Phone Unavailable Primary Care Provider Unavailabl e Encounter Details Date Type Department Care Team (Late st Contact Info) Description 12/02/2018 Transcribed Document [facility] Family Medicine [facility] [place] [address] ProviderBrianne MD [address] [place] [id number] Social History Tobacco Use Types Packs/Day Years [...]
--- OUTSIDE RECORDS SUMMARY | 2024-12-07 22:12 | XMS_ITS | Encounter Summary ---
Author Organization [email or web address] ([place], [place], [place], [place]) Address [address] [place] [address] Care Team Providers Care Knitting Inspector Name Role Phone Unavailable Primary Care Provider Unavailabl e Encounter Details Date Type Department Care Team (Late st Contact Info) Description 12/02/2018 Transcribed Document [facility] [place] [address] [place] [address] ProviderBrianne MD [address] [place] [address] Social History Tobacco Use Types [...]
--- OUTSIDE RECORDS SUMMARY | 2024-12-07 22:12 | XMS_ITS | Encounter Summary ---
Author Organization [employer] ([place], [place], [place], [place]) Address [address] [place] [address] Care Team Providers Care Escalator Operator Name Role Phone Unavailable Primary Care Provider Unavailabl e Encounter Details Date Type Department Care Team (Late st Contact Info) Description 12/02/2018 Transcribed Document [facility] Cardiology [address] [place], [place] [address] [place] [address] [place] [address] [address] [place] [address] Social History Tobacco Use Types Packs/Day Years [...] of motion, Normal strength. Integumentary: Warm, Dry, [place]. Neurologic: Alert, Oriented. Psychiatric: Cooperative, Appropriate mood & affect. Results Review Telemetry Admission Weight Todays Weight DEC 01 07:22 145 H 115 H 24 / 102 4.1 25 1.20 \ DEC 01 07:22 \ L 11.8 / 6.0 L 143 / L 35.2 \ Cardiac Markers (Current Encounter/Past 24 Hours) No Cardiac Marker Results Found (Past 24 Hours) Radiology Results (Last 48 hours) [id number] -- 11/30/2018 19:19 CR Chest 1 Vw [...]
--- OUTSIDE RECORDS SUMMARY | 2024-12-07 22:12 | XMS_ITS | Encounter Summary ---
Author Organization [facility] ([place], [place], [place], [place]) Address [address] [place] [address] Care Team Providers Care Brusher Warp Name Role Phone Unavailable Primary Care Provider Unavailabl e Encounter Details Date Type Department Care Team (Late st Contact Info) Description 12/02/2018 Transcribed Document [facility] [place] [facility] [place] [address] ProviderBrianne MD [facility] [place] [id number] Social History Tobacco Use Types Packs/Day Years [...] On: 12/02/2018 16:00 EDT by NARA HEBERT, RN-Ripsaw Grader Initial Assessment I Previously Documented Living Environment : No qualifying data available. Living Situation : Home Patient Lives With : Alone Emergency Contact #1 : Julissa Chester Emergency Contact #1 Phone Number : [phone] Emergency Contact #1 Relationship : daughter Enter Doctors Name : Jared Ramos Does Patient have PCP Listed? : Yes Legal Guardian : Yes Is Guardianship Needed : Yes NARA HEBERT, RN-Ripsaw Grader - 12/02/2018 16:00 EDT Initial Assessment II Sensory and Motor Deficits : None Current Home Treatments and Equipment : Cane, Crutches Does the Patient have a Floor to SNF Benefit? : Yes NARA HEBERT, RN-Ripsaw Grader - 12/02/2018 16:00 EDT Discharge Needs I Anticipated Discharge Date : 12/03/2018 EDT Anticipated Discharge To, CM : Home independently Current Home Treatment/Equipment : Current Home Treatment/Equipment No qualifying data available. Post Acute/Home Treatments : None NARA HEBERT, RN-Ripsaw Grader - 12/02/2018 16:00 EDT Discharge Needs II Professional Skilled Services : Professional Skilled Services No qualifying data available. Needs Assistance with Transportation : No Discharge Options Discussed with Patient : DME, Home Health NARA HEBERT, RN-Ripsaw Grader - 12/02/2018 16:00 EDT Narrative Note Narrative Note : Pt off the floor. Met with pt's daughter. Discussed home health at discharge. Pt's daughter refuses at this time. Pt's daughter denies any discharge needs. NARA HEBERT, RN-Ripsaw Grader - 12/02/2018 16:00 EDT documented in this encounter Plan of Treatment Not on file documented as of this encounter Visit Diagnoses Not on filedocumented in this encounter
--- OUTSIDE RECORDS SUMMARY | 2024-12-07 22:12 | XMS_ITS | Encounter Summary ---
Author Organization [employer] ([place], [place], [place], [place]) Address [address] [place] [address] Care Team Providers Care Chemistry Quality Control Analyst Name Role Phone Unavailable Primary Care Provider Unavailabl e Encounter Details Date Type Department Care Team (Late st Contact Info) Description 12/02/2018 Transcribed Document [facility] Radiology [address] [place] [address] Max Feliz MD [address] [place], [place] [id number] Social History Tobacco Use Types Packs/Day Years [...] Problem list: Medical Arthritis / SNOMED CT 7368661 / Confirmed At risk for sleep apnea / IMO 01066252 / Confirmed Barretts esophagus / SNOMED CT 072188688 / Confirmed Carotid artery disease / SNOMED CT 3491706615 / Confirmed Cataract//extraction / SNOMED CT 016455710 / Confirmed Urinary catheter complication////DO NOT CATH///URINARY / SNOMED CT 6185729131 / Confirmed ARTIFICAL SPHINCTER Diabetes mellitus type II / SNOMED CT 05211140 / Confirmed Disorder of prostate//cancer / SNOMED CT 92418379 / Confirmed Urinary //artifical urinary sphincter / SNOMED CT 237918194 / Confirmed GERD - Gastro-esophageal reflux disease / SNOMED CT 8001046630 / Confirmed Hard of hearing / SNOMED CT 836255948 / Confirmed Right hip pain / SNOMED CT 90090378 / Confirmed Hyperlipidemia / SNOMED CT 91023178 / Confirmed Hypertension / SNOMED CT 68859669 / Confirmed Kidney disease///stage 3 / SNOMED CT 889369963 / Confirmed Right knee pain / SNOMED CT 64521784 / Confirmed Cancer//left side of neck / SNOMED CT 5790240139 / Confirmed Renal calculus / SNOMED CT 162292504 / Confirmed Thyroid disease / SNOMED CT 799169341 / Confirmed TIA (transient ischemic attack) 2013 and 05/2018 / SNOMED CT 947318676 / Confirmed, Active Problems (21) Arthritis At [...] status post recent stent Continue with platelet [facility] surgery- consult. dc 7-7 by [facility] surfgery -Hypertension, labile and hypotension Hold oral [...] back hospitalized he did 2 days ago. [employer] Communicationsation system used. Computer program makes numerous spelling grammar mistakes. If you have any questions or concerns do not hesitate call Dr. Max Holbrook at cell phone number [phone]. documented in this encounter Plan of Treatment Not on file documented as of this encounter Visit Diagnoses Not on filedocumented in this encounter
--- OUTSIDE RECORDS SUMMARY | 2024-12-07 22:12 | XMS_ITS | Encounter Summary ---
Author Organization [facility] Address [address] [place] [address] Care Team Providers Care Ultimate Hoops Scoreboard Operator Name Role Phone zO Ramos MD Primary Care Provider [phone] John Joseph MD Unavailable [phone] Cheyenne Mitchell APRN, DEVI Unavailable [phone] Encounter Details Date Type Department Care Team [...] time in the past [address] [facility], were you homeless or living [...] first t jeff in the morning (EYE-DIRECTOR CORPORATE SALES) to steady your nerves or to get [...] Hospital Encounter [facility] [address] [place] [address] Carolee Gr MD [address] [place] [address] 12/25/2024 7:30 AM EDT Anesthesia Event [facility] [address] [place] [address] Sun Dean PA [address] [place] [address] 12/25/2024 7:30 AM EDT - 12/25/2024 10:00 AM EDT Surgery [facility] [address] [place] [address] Carolee Gr MD [address] [facility] [address] [place] [address] REVISION, AV FISTULA, UPPER EXTREMITY [40544 (CPT )] 05/03/2025 8:00 AM EST Appointment [facility] Ultrasound [address] [place] [address] 2025 1:00 PM EST Office Visit [facility] [address], [address] [place] [address] Rudy Andersen MD [address] [place] [address] 05/13/2025 8:10 AM EST Office Visit [facility] Urology [address], [address] [place] [address] Cheyenne Mitchell P, SLITTING MACHINE FEEDER, DNP [address] [place] [address] Scheduled Procedures Name Priority Associated Diagnoses Date/Ti me REVISION, AV FISTULA OR GRAFT, UPPER EXTREMITY ESRD (end stage renal disease) ([facility]) 12/25/2024 7:30 AM EDT documented as of [...] documented as of this encounter Care Teams Ultimate Hoops Scoreboard Operator Relationship Specialty Start Date End Date Oz Ramos MD [address] [place] [address] #1 #1 [place] [address] PCP - General 10/07/20 John Joseph MD [address] [place] [address] Consulting Physician Urology 02/04/23 Cheyenne Mitchell, ELIZABETH, DNP [address] [place] [address] Nurse Practitioner Urology 05/13/24 documented as of this encounter
--- OUTSIDE RECORDS SUMMARY | 2024-12-07 22:12 | XMS_ITS | Encounter Summary ---
Author Organization [employer] ([place], [place], [place], [place]) Address [address] [place] [address] Care Team Providers Care Container Washer Machine Name Role Phone Unavailable Primary Care Provider Unavailabl e Encounter Details Date Type Department Care Team (Late st Contact Info) Description 12/03/2018 Transcribed Document [facility] Family Medicine [address] [place] [address] ProviderBrianne MD [address], [place] [phone] Social History Tobacco Use Types Packs/Day Years [...] ALFREDO REINOSO RN - 12/03/2018 16:10 EDT documented in this encounter Plan of Treatment Not on file documented as of this encounter Visit Diagnoses Not on filedocumented in this encounter
--- OUTSIDE RECORDS SUMMARY | 2024-12-07 22:12 | XMS_ITS | Encounter Summary ---
Author Organization [employer] ([place], [place], [place], [place]) Address [address] [place] [address] Care Team Providers Care Residential Construction Instructor Name Role Phone Unavailable Primary Care Provider Unavailabl e Encounter Details Date Type Department Care Team (Late st Contact Info) Description 12/01/2018 Transcribed Document [facility] Cardiology [address] [phone] Jose A Ascencio MD [address] [facility] [address] [place] [address] Social History Tobacco Use Types Packs/Day Years [...] list: All Problems Arthritis / SNOMED CT 3859022 / Confirmed At risk for sleep apnea / IMO 89711384 / Confirmed Barretts esophagus / SNOMED CT 152210000 / Confirmed Carotid artery disease / SNOMED CT 0136656997 / Confirmed Carotid stent occlusion / SNOMED CT 111555892 / Confirmed Cataract//extraction / SNOMED CT 538900881 / Confirmed Urinary catheter complication////DO NOT CATH///URINARY / SNOMED CT 1226705168 / Confirmed ARTIFICAL SPHINCTER Diabetes mellitus type II / SNOMED CT 56926263 / Confirmed Disorder of prostate//cancer / SNOMED CT 87812532 / Confirmed Urinary //artifical urinary sphincter / SNOMED CT 349628940 / Confirmed GERD - Gastro-esophageal reflux disease / SNOMED CT 6190312126 / Confirmed Hard of hearing / SNOMED CT 815124209 / Confirmed Right hip pain / SNOMED CT 16341053 / Confirmed Hyperlipidemia / SNOMED CT 59476836 / Confirmed Hypertension / SNOMED CT 13740069 / Confirmed Kidney disease///stage 3 / SNOMED CT 296797150 / Confirmed Right knee pain / SNOMED CT 84305432 / Confirmed Cancer//left side of neck / SNOMED CT 9688722570 / Confirmed Renal calculus / SNOMED CT 232937838 / Confirmed Thyroid disease / SNOMED CT 000550585 / Confirmed TIA (transient ischemic attack) 2013 and 05/2018 / SNOMED CT 389609947 / Confirmed, Active Problems (21) Arthritis At [...] 24 Hours) Radiology Results (Last 48 hours) [id number] -- 11/30/2018 19:19 CR Chest 1 Vw [...]
--- OUTSIDE RECORDS SUMMARY | 2024-12-07 22:12 | XMS_ITS | Encounter Summary ---
Author Organization [employer] ([place], [place], [place], [place]) Address [address] [place] [address] Care Team Providers Care Tamale Machine Feeder Name Role Phone Unavailable Primary Care Provider Unavailabl e Encounter Details Date Type Department Care Team (Late st Contact Info) Description 12/03/2018 Transcribed Document [facility] [place] [facility] [place] [address] ProviderBrianne MD [address] [place], [place] [id number] Social History Tobacco Use Types Packs/Day Years [...] On: 12/03/2018 13:52 EDT by NARA HEBERT, RN-Assembler Final Discharge Planning Follow Up Appointment Scheduled [...] : Yes Discharge To Care Management : Home/Residential/Detention or Self Care - NARA HEBERT RN-Assembler - 12/03/2018 13:53 EDT Discharge Arrangements : Patient Post-Acute Information Patient Name: [facility]: [id number] Gender: Male : 44 Age: 78 Years No Post-Acute Placement(s) Listed No Post-Acute Service(s) Listed No [place] Referral(s) Listed Transportation Needs : Car Discharge Transportation Arrangement Cmt : daughter NARA HEBERT, RN-Assembler - 12/03/2018 13:52 EDT Final Narrative Note Final Narrative Note : Pt to discharge to home with his daughter. Pt and daughter both refuse home health at this time and deny any discharge needs. Pt's daughter to transport. NARA HEBERT, RN-Assembler - 12/03/2018 13:53 EDT documented in this encounter Plan of Treatment Not on file documented as of this encounter Visit Diagnoses Not on filedocumented in this encounter
--- OUTSIDE RECORDS SUMMARY | 2024-12-07 22:12 | XMS_ITS | Encounter Summary ---
Author Organization [employer] ([place], [place], [place], [place]) Address [address] [place] [address] Care Team Providers Care Resistance Brazer Name Role Phone Unavailable Primary Care Provider Unavailabl e Encounter Details Date Type Department Care Team (Late st Contact Info) Description 12/02/2018 Transcribed Document [facility] [place] [facility] [place] [address] ProviderBrianne MD [address] [place], [place] [phone] Social History Tobacco Use Types Packs/Day Years [...] Emergency Room Visit : 12/01/18, admitted to [facility] AIDAN RAO RN - 12/02/2018 12:36 EDT Electronically signed by Cari [facility] Conversion Sports Management Professor Cerner at 09/14/2022 12:16 PM CDT documented in this encounter Plan of Treatment Not on file documented as of this encounter Visit Diagnoses Not on filedocumented in this encounter
--- OUTSIDE RECORDS SUMMARY | 2024-12-07 22:12 | XMS_ITS | Encounter Summary ---
Author Organization [employer] ([place], [place], [place], [place]) Address [address] [place] [address] Care Team Providers Care Wire Setter Name Role Phone Unavailable Primary Care Provider Unavailabl e Encounter Details Date Type Department Care Team (Late st Contact Info) Description 12/23/2018 Transcribed Document [facility] [place] [facility] [address] ProviderBrianne MD [address] [place] [place], [place] [phone] Social History Tobacco Use Types Packs/Day Years [...] from sitting : Mild 4. Bending to floor/slat pickler an object : Severe 5. Lying in [...]
--- OUTSIDE RECORDS SUMMARY | 2024-12-07 22:12 | XMS_ITS | Encounter Summary ---
Author Organization [employer] ([place], [place], [place], [place]) Address [address] [place] [address] Care Team Providers Care Grapple Yarder Operator Name Role Phone Unavailable Primary Care Provider Unavailabl e Encounter Details Date Type Department Care Team (Late st Contact Info) Description 12/17/2018 Transcribed Document [facility] [place] [facility] [place] [address] ProviderBrianne MD [address] [place] [address] Social History Tobacco Use Types [...] Source : Measured Height Entry Format : [place] Height, Feet : 0 ft(Converted to: 0 cm, 0 Inch) Height, Inches : 71 Inch(Converted to: 5 ft 11 Inch, 180.34 cm) Clinical Height : 180.34 cm Weight Source : Standing scale Weight Entry Format : [place] Clinical Dosing Weight : 67.64 kg Weight, Pounds : 148.8 lb Body Surface Area (BSA) : 1.86 m2 Body Mass Index : 20.8 kg/m2 [place] Body Weight : 74 kg GUSTABO PITTMAN [...] Daughter Legal Guardian : Yes Support Person/Patient Assembler Insulator : Yes Support Person/Pt Rep Name : deepak Tenorio Contact Password : bruce Support Person/Pt Rep Contact Information : [phone] cell Want Family/Rep/Phys Notified of Admit : No Emergency Contact #1 : Julsisa Diaz Emergency Contact #1 cell Emergency Contact #1 Relationship : daughter Emergency Contact #2 : none Emergency Contact #2 Phone Number : none Emergency Contact #2 Relationship : none Information Obtained From : Patient Primary Language : Gabonese Preferred Communication Mode : Verbal Communication Barrier [...] Electronically signed by Victor Manuel Alcala Conversion President Mortgage Company Cerner at 09/14/2022 12:15 PM CDT documented in this encounter Plan of Treatment Not on file documented as of this encounter Visit Diagnoses Not on filedocumented in this encounter
--- OUTSIDE RECORDS SUMMARY | 2024-12-07 22:12 | XMS_ITS | Encounter Summary ---
Author Organization [facility] Address [address] [place] [address] Care Team Providers Care Automation Manager Name Role Phone Oz Ramos MD Primary Care Provider [phone] John Joseph MD Unavailable [phone] Cheyenne Mitchell DIRECTOR OF CONSUMER MARKETING, DNP Unavailable [phone] Nancy Mitchell LPN Unavailable Unavailable Reason for Visit * Reason Comments Med Refill Encounter Details Date Type Department Care Team (Late st Contact Info) Description 01/07/2022 Refill [facility] Nephrology, Bone & Mineral Metabolism [address], [address] [place] [address] Claus Gibbs MD [address] [place] [address] Social History Tobacco Use Types [...] Hospital Encounter [facility] [address] [place] [address] Carolee Gr MD [address] [facility] [address] [place] [address] 12/25/2024 7:30 AM EDT Anesthesia Event [facility] [address] [place] [address] Sun Dean PA [address] [place] [address] 12/25/2024 7:30 AM EDT - 12/25/2024 10:00 AM EDT Surgery [facility] [address] [place] [address] Carolee Gr MD [address] [facility] [address] [place] [address] REVISION, AV FISTULA, UPPER EXTREMITY [88643 (CPT )] 05/03/2025 8:00 AM EST Appointment [facility] Ultrasound [address] [place] [id number] 2025 1:00 PM EST Office Visit [facility] Otol[facility]ology [address], [address]rd [place] [address] Rudy Andersen MD [address] [facility] [address] [place] [address] 05/13/2025 8:10 AM EST Office Visit [facility] Urology [address], [address] [place] [address] Cheyenne Mitchell, DIRECTOR OF CONSUMER MARKETING, DNP [address] [place] [address] Scheduled Procedures Name Priority Associated Diagnoses Date/Ti me REVISION, AV FISTULA OR GRAFT, UPPER EXTREMITY ESRD (end stage renal disease) ([facility]) 12/25/2024 7:30 AM EDT documented [...] documented as of this encounter Care Teams Automation Manager Relationship Specialty Start Date End Date Oz Ramos MD [address] [place] [address] [address] [place] [address] PCP - General 10/07/20 John Joseph MD [address] [place] [phone] Consulting Physician Urology 02/04/23 Cheyenne Mitchell, DIRECTOR OF CONSUMER MARKETING, DNP [address] [place] [address] Nurse Practitioner Urology 05/13/24 Nancy Mitchell LPN TCM Nurse 06/25/24 07/24/24 documented as of this encounter
--- OUTSIDE RECORDS SUMMARY | 2024-12-07 22:12 | XMS_ITS | Encounter Summary ---
Author Organization [employer] ([place], [place], [place], [place]) Address [address] [place] [address] Care Team Providers Care Home Health Registered Nurse Name Role Phone Unavailable Primary Care Provider Unavailabl e Encounter Details Date Type Department Care Team (Late st Contact Info) Description 12/03/2018 Transcribed Document [facility] [place] [facility] [place] [address] ProviderBrianne MD [address] [place], [place] [phone] Social History Tobacco Use Types Packs/Day Years [...] be at higher risk if you are -Cymraes. ??? Gender. Men are at higher risk [...] provider. This is important. Medicines ??? Take iajm-lad-booxhnj and prescription medicines only as told by [...] 05/13/2006 Document Revised: 04/10/2017 Document Reviewed: 04/10/2017 iPinYou Interactive Patient Education ? 2019 [employer]PinYou Inc. Mental and Behavioral Health Confusion Confusion [...] lot or have excessive sleepiness. ??? Take bbxw-yol-wywialt and prescription medicines only as told by [...] more information For more information, visit: ??? [place] Stroke Association: www.strokeassociation.org ??? National Stroke Association: [...] 06/20/2005 Document Revised: 06/18/2017 Document Reviewed: 06/18/2017 ElsePanjo Interactive Patient Education ? 2019 [employer]You Inc. Electronically signed by Victor Manuel Alcala Conversion Head Bander And Liner Operator Alpesh at 09/13/2022 4:32 PM CDT documented in this encounter Plan of Treatment Not on file documented as of this encounter Visit Diagnoses Not on filedocumented in this encounter
--- OUTSIDE RECORDS SUMMARY | 2024-12-07 22:12 | XMS_ITS | Encounter Summary ---
Author Organization [employer] ([place], [place], [place], [place]) Address [address] [place] [address] Care Team Providers Care Sql Bi Developer Name Role Phone Unavailable Primary Care Provider Unavailabl e Encounter Details Date Type Department Care Team (Late st Contact Info) Description 12/01/2018 Transcribed Document [facility] [place] [facility] [place] [address] ProviderBrianne MD [facility] [place] [phone] Social History Tobacco Use Types Packs/Day Years [...]
--- OUTSIDE RECORDS SUMMARY | 2024-12-07 22:12 | XMS_ITS | Encounter Summary ---
Author Organization [employer] ([place], [place], [place], [place]) Address [address] [place] [address] Care Team Providers Care Intake Worker Name Role Phone Unavailable Primary Care Provider Unavailabl e Encounter Details Date Type Department Care Team (Late st Contact Info) Description 12/02/2018 Transcribed Document [facility] [place] [facility] [place] [address] ProviderBrianne MD [address] [place], [place] [phone] Social History Tobacco Use Types Packs/Day Years [...] Insurance 1 Health Plan: MEDICARE Policy Number: [id number] Authorization Number: Insurance 2 Health Plan: AARP N Policy Number: [id number] Authorization Number: Insurance Primary Name : MEDICARE Authorized Service Begin Date-Primary : 11/30/2018 EDT Historical Authorization Comments-Primary : No Authorization Comments Found ROLLY LAY Rn-Utilization Review - 12/02/2018 11:50 EDT documented in this encounter Plan of Treatment Not on file documented as of this encounter Visit Diagnoses Not on filedocumented in this encounter
--- OUTSIDE RECORDS SUMMARY | 2024-12-07 22:12 | XMS_ITS | Encounter Summary ---
Author Organization [employer] ([place], [place], [place], [place]) Address [address] [place] [address] Care Team Providers Care Computer Video Game Designer Name Role Phone Unavailable Primary Care Provider Unavailabl e Encounter Details Date Type Department Care Team (Late st Contact Info) Description 12/03/2018 Transcribed Document [facility] [place] [address] [place] [address] ProviderBrianne MD [address] [place], [place] [phone] Social History Tobacco Use Types Packs/Day Years [...] Electronically signed by Victor Manuel Alcala Conversion Automatic Machine Attendant Cerner at 09/13/2022 4:28 PM CDT documented in this encounter Plan of Treatment Not on file documented as of this encounter Visit Diagnoses Not on filedocumented in this encounter
--- OUTSIDE RECORDS SUMMARY | 2024-12-07 22:12 | XMS_ITS | Encounter Summary ---
Author Organization [employer] ([place], [place], [place]) Address [address] [place] [address] Care Team Providers Care Brand Activation Manager Name Role Phone Unavailable Primary Care Provider Unavailabl e Encounter Details Date Type Department Care Team (Late st Contact Info) Description 12/03/2018 Transcribed Document [facility] [place] [facility] [place] [address] ProviderBrianne MD [address] [place] [address] Social History Tobacco Use Types [...] Kim MD - 12/03/2018 3:13 PM CDT [facility] [place] [address] NADER TOLENTINO :1940 Visit Time:12/02/2018 [...] BURNS When Within 2 weeks Where: [address] [place] [address] [employer] Business (1) Follow Up with GALEN THAKUR When Within 2 to 4 weeks Comments Patient should call for a follow up with his outpatient neurologist. Where: [address] [place] [address]- Business (1) Follow Up with [facility] When Within 2 to 3 days Where: [address] [place] [address]- Business (1) Follow Up with Patient Resource [...] 06/20/2005 Document Revised: 11/30/2016 Document Reviewed: 06/18/2014 Webstep Interactive Patient Education ?? 2019 [employer]Tac[employer]. Hypertension Hypertension, commonly called high blood pressure, [...] be at higher risk if you are -Slovenian. ??? Gender. Men are at higher risk [...] provider. This is important. Medicines ??? Take gxyn-ics-cxlbvey and prescription medicines only as told by [...] 05/13/2006 Document Revised: 04/10/2017 Document Reviewed: 04/10/2017 Webstep Interactive Patient Education ?? 2019 [employer]TacMag. Stroke Prevention Some medical conditions and behaviors [...] lot or have excessive sleepiness. ??? Take ssqb-jpg-iszwpwu and prescription medicines only as told by [...] more information For more information, visit: ??? [place] Stroke Association: www.strokeassociation.org ??? National Stroke Association: [...] 06/20/2005 Document Revised: 06/18/2017 Document Reviewed: 06/18/2017 Webstep Interactive Patient Education ?? 2019 Webstep Inc. metoprolol (oral/injection) (me TOE pro lol) [...] may report side effects to FDA at 5-733-TQF-3573. What other drugs will affect metoprolol? Tell [...] may affect metoprolol. This includes prescription and jwgy-bud-fbgvkdm medicines, vitamins, and herbal products. Not all [...] to ensure that the information provided by [employer]olar. ('Multum') is accurate, up-to-date, and complete, but no guarantee is made to that effect. Drug information contained herein may be time sensitive. BenchBankingum information has been compiled for use by healthcare practitioners and consumers in the [place] and therefore [employer] does not warrant that uses outside of the [place] are appropriate, unless specifically indicated otherwise. [employer]'s drug information does not endorse drugs, diagnose patients or recommend therapy. [employer]'s drug information is an informational resource designed [...] effective or appropriate for any given patient. [facility] does not assume any responsibility for any aspect of healthcare administered with the aid of information [facility] provides. The information contained herein is not intended to cover all possible uses, directions, precautions, warnings, drug interactions, allergic reactions, or adverse effects. If you have questions about the drugs you are taking, check with your doctor, nurse or pharmacist. Copyright 5681-4875 [facility] Standard Diagnostics. Version: 17.03. Revision Date: 10/22/2018.aspirin (oral) ( [...] What is aspirin? Aspirin is a salicylate (pk-YTY-tp-ate). It works by reducing substances in the [...] may report side effects to FDA at 5-723-LEC-6700. What other drugs will affect aspirin? Ask [...] drugs may affect aspirin, including prescription and qsql-rzc-fvbcdwg medicines, vitamins, and herbal products. Not all [...] to ensure that the information provided by [employer]. ('Multum') is accurate, up-to-date, and complete, but no guarantee is made to that effect. Drug information contained herein may be time sensitive. [employer] information has been compiled for use by healthcare practitioners and consumers in the [place] and therefore [employer] does not warrant that uses outside of the [place] are appropriate, unless specifically indicated otherwise. [employer] drug information does not endorse drugs, diagnose patients or recommend therapy. [employer] drug information is an informational resource designed [...] effective or appropriate for any given patient. [employer] does not assume any responsibility for any aspect of healthcare administered with the aid of information [employer] provides. The information contained herein is not intended to cover all possible uses, directions, precautions, warnings, drug interactions, allergic reactions, or adverse effects. If you have questions about the drugs you are taking, check with your doctor, nurse or pharmacist. Copyright 7421-7000 [employer]. Version: 15.. Revision Date: 08/26/2017.polyethylene glycol 3350 (arabella ee ETH il een GLYE kol) ClearLax, GaviLAX, Gialax, GlycoLax, MiraLax, OPK2889, SunMark ClearLax What is the most important [...] may report side effects to FDA at 8-340-PHC-8196. What other drugs will affect polyethylene glycol 3350? Other drugs may interact with polyethylene glycol 3350, including prescription and fmzc-zmz-akxhsii medicines, vitamins, and herbal products. Tell each [...] to ensure that the information provided by [employer]. ('QuicklyChattum') is accurate, up-to-date, and complete, but no guarantee is made to that effect. Drug information contained herein may be time sensitive. [employer] information has been compiled for use by healthcare practitioners and consumers in the [place] and therefore [employer] does not warrant that uses outside of the [place] are appropriate, unless specifically indicated otherwise. [employer]'s drug information does not endorse drugs, diagnose patients or recommend therapy. [employer] drug information is an informational resource designed [...] effective or appropriate for any given patient. [employer] does not assume any responsibility for any aspect of healthcare administered with the aid of information [employer] provides. The information contained herein is not intended to cover all possible uses, directions, precautions, warnings, drug interactions, allergic reactions, or adverse effects. If you have questions about the drugs you are taking, check with your doctor, nurse or pharmacist. Copyright 4937-1363 [employer]. Version: 2.04. Revision Date: 08/29/2016.atorvastatin (a TOR [...] may report side effects to FDA at 4-457-ZTF-9328. What other drugs will affect atorvastatin? Certain [...] drugs may affect atorvastatin, including prescription and iwwz-uto-ydlaxcp medicines, vitamins, and herbal products. Not all [...] to ensure that the information provided by [employer]. ('Multum') is accurate, up-to-date, and complete, but no guarantee is made to that effect. Drug information contained herein may be time sensitive. [employer] information has been compiled for use by healthcare practitioners and consumers in the [place] and therefore [employer] does not warrant that uses outside of the [place] are appropriate, unless specifically indicated otherwise. [employer] drug information does not endorse drugs, diagnose patients or recommend therapy. [employer] drug information is an informational resource designed [...] effective or appropriate for any given patient. [facility] does not assume any responsibility for any aspect of healthcare administered with the aid of information [facility] provides. The information contained herein is not intended to cover all possible uses, directions, precautions, warnings, drug interactions, allergic reactions, or adverse effects. If you have questions about the drugs you are taking, check with your doctor, nurse or pharmacist. Copyright 4837-2894 [facility] Standard Diagnostics. Version: .. Revision Date: 01/09/2018.lisinopril (lyse IN [...] have an allergic reaction if you are -Slovenian. Call your doctor at once if you [...] may report side effects to FDA at 0-633-UJC-1190. What other drugs will affect lisinopril? Tell [...] drugs may affect lisinopril, including prescription and rulk-tzh-jdmcmny medicines, vitamins, and herbal products. Not all possible drug interactions are listed here. Where can I get more information? documented in this encounter Plan of Treatment Not on file documented as of this encounter Visit Diagnoses Not on filedocumented in this encounter
--- OUTSIDE RECORDS SUMMARY | 2024-12-07 22:12 | XMS_ITS | Encounter Summary ---
Author Organization [facility] Address [address] [place] [address] Care Team Providers Care Quencher Operator Name Role Phone Oz Ramos MD Primary Care Provider [phone] John Joseph MD Unavailable [phone] Cheyenne Mitchell APRN, DEVI Unavailable [phone] Encounter Details Date Type Department Care Team (Latest Contact Info) Description 12/07/2024 Travel Social History Tobacco Use Types Packs/Day [...] any time in the past 12 [facility], were you homeless or living in a care home (including now)? No 06/19/2024 AUDIT-C Answer Date [...] drink first t jeff in the morning (EYE-INFECTION CONTROL PRACTITIONER) to steady your nerves or to get [...] Hospital Encounter P[facility] A OPERATING ROOM [address] [place] [address] Carolee Gr MD [address] [facility] [address] [place] [address] 12/25/2024 7:30 AM EDT Anesthesia Event P[facility] OPERATING ROOM [address] [place] [address] Sun Dean PA [address] [place] [address] 12/25/2024 7:30 AM EDT - 12/25/2024 10:00 AM EDT Surgery [facility] A [facility]PERATING ROOM [address] [place] [address] Carolee Gr MD [address] [facility] [address] [place] [address] REVISION, AV FISTULA, UPPER EXTREMITY [73241 (CPT )] 05/03/2025 8:00 AM EST Appointment [facility] Ultrasound [address] [place] [address] 2025 1:00 PM EST Office Visit [facility] [address], [address] [place] [address] Rudy Andersen MD [address] [place] [address] 05/13/2025 8:10 AM EST Office Visit [facility] Urology [address], [address] [place] [address] Cheyenne Mitchell APRN, DNP [address] [place] [address] Scheduled Procedures Name Priority Associated Diagnoses Date/Ti me REVISION, AV FISTULA OR GRAFT, UPPER EXTREMITY ESRD (end stage renal disease) ([facility] 12/25/2024 7:30 AM EDT documented [...] documented as of this encounter Care Teams Quencher Operator Relationship Specialty Start Date End Date Oz Ramos MD [address] [place] [address] [address] [place] [address] PCP - General 10/07/20 John Joseph MD [address] [place] [address] Consulting Physician Urology 02/04/23 Cheyenne Mitchell APRN, DNP [address] [place] [address] Nurse Practitioner Urology 05/13/24 documented as of this encounter
--- OUTSIDE RECORDS SUMMARY | 2024-12-07 22:12 | XMS_ITS | Encounter Summary ---
Author Organization [facility] Address [address] [place] [address] Care Team Providers Care Production Machinist Name Role Phone Oz Ramos MD Primary Care Provider [phone] John Joseph MD Unavailable [phone] Cheyenne Mitchell APRN, DEVI Unavailable [phone] Encounter Details Date Type Department Care Team (Latest Contact Info) Description 11/24/2024 Travel Social History Tobacco Use Types Packs/Day [...] time in the past 12 m [facility], were you homeless or living in a [...] drink first t jeff in the morning (EYE-UNDERGRADUATE INTERN) to steady your nerves or to get [...] Hospital Encounter [facility] [address] [place] [address] Carolee Gr MD [address] [place] [address] 12/25/2024 7:30 AM EDT Anesthesia Event [facility] [address] [place] [address] Sun Dean PA [address] [place] [address] 12/25/2024 7:30 AM EDT - 12/25/2024 10:00 AM EDT Surgery [facility] [address] [place] [address] Carolee Gr MD [address] [facility] [[email or web address] [address] [place] [address] REVISION, AV FISTULA, UPPER EXTREMITY [78535 (CPT )] 05/03/2025 8:00 AM EST Appointment [facility] Ultrasound [address]nd [place] [address] 2025 1:00 PM EST Office [facility] [address], [address]rd [place] [address] Rudy Andersen MD [address] [place] [address] 05/13/2025 8:10 AM EST Office Visit [facility] Urology [address], [address] [place] [address] Cheyenne Mitchell P, POT OPERATOR, DNP [address] [place] [address] Scheduled Procedures Name Priority Associated Diagnoses Date/Ti me REVISION, AV FISTULA OR GRAFT, UPPER EXTREMITY ESRD (end stage renal disease) ([facility]) 12/25/2024 7:30 AM EDT documented [...] documented as of this encounter Care Teams Production Machinist Relationship Specialty Start Date End Date Oz Ramos MD [address] [place] [address] [address] [place] [address] PCP - General 10/07/20 John Joseph MD [address] [place] [address] Consulting Physician Urology 02/04/23 Cheyenne Mitchell, ELIZABETH, DNP [address] [place] [address] Nurse Practitioner Urology 05/13/24 documented as of this encounter
--- OUTSIDE RECORDS SUMMARY | 2024-12-07 22:12 | XMS_ITS | Encounter Summary ---
Author Organization [employer] ([place], [place], [place], [place]) Address [address] [place] [address] Care Team Providers Care Medical Appliance Maker Name Role Phone Unavailable Primary Care Provider Unavailabl e Encounter Details Date Type Department Care Team (Late st Contact Info) Description 12/02/2018 Transcribed Document [facility] [place] [facility] [place] [address] ProviderBrianne MD [address], [place] [id number] Social History Tobacco Use Types Packs/Day Years [...] Zuleyka Smith RN - 12/02/2018 8:26 EDT documented in this encounter Plan of Treatment Not on file documented as of this encounter Visit Diagnoses Not on filedocumented in this encounter
--- OUTSIDE RECORDS SUMMARY | 2024-12-07 22:12 | XMS_ITS | Encounter Summary ---
Author Organization [employer] ([place], [place]) Address [address] [place] [address] Care Team Providers Care Photovoltaic Installation Technician Name Role Phone Unavailable Primary Care Provider Unavailabl e Encounter Details Date Type Department Care Team (Late st Contact Info) Description 12/01/2018 Transcribed Document [facility] [place] [address] [place] [address] ProviderBrianne MD [address], [place] [id number] Social History Tobacco Use Types Packs/Day Years [...] PT : 78 yo male adm to [facility] 11/30 for Flucuating BP and Acute Contusion Pt was discharged home 11/30 at 1300 from [facility] PMHx significant for Neck CA, OA, Carotid [...] ROM : WFL Right LE Strength : [facility] LLE Active ROM : WFL Left LE [...] process of getting medical clearance for R [place] for DJD CORKY BELTRE, PT - 12/01/2018 [...] CORKY BELTRE, PT - 12/01/2018 14:30 EDT Electronically signed by Cari [facility] Conversion Electronic Pagination System Operator Cerner at 09/13/2022 4:38 PM CDT documented in this encounter Plan of Treatment Not on file documented as of this encounter Visit Diagnoses Not on filedocumented in this encounter
--- OUTSIDE RECORDS SUMMARY | 2024-12-07 22:12 | XMS_ITS | Encounter Summary ---
Author Organization [employer] ([place], [place]) Address [address] [place] [address] Care Team Providers Care Cisco Certified Network Associate Name Role Phone Unavailable Primary Care Provider Unavailabl e Encounter Details Date Type Department Care Team (Late st Contact Info) Description 12/03/2018 Transcribed Document [facility] Family Medicine [facility] [place] [address] ProviderBrianne MD [address] [place], [place] [id number] Social History Tobacco Use Types Packs/Day Years [...]
--- OUTSIDE RECORDS SUMMARY | 2024-12-07 22:12 | XMS_ITS | Continuity of Care Document ---
Author Organization [facility] DAVIS Rodriguez VENICE Address [address] [place] [address] Care Team Providers Care Lace Weaver Name Role Phone JOHANNY NORTH Referring Provider [phone] JOHANNY NORTH Primary Care Provider DALIA BARBER [employer] Consultant Assessment No assessment recorded. Plan of Treatment Reminders Order Date Submit Date Provider Last Modified By Organization Details Last Modified Time Details Appointments [facility] 2024 07:30A M DR SARAH HALL Not available Not available Not available FOLLOW UP [facility] 2025 08:10A M DALIA BARBER PA-C Not [...] Address Organization Details Recorded Time Hyperlipi demia 63726326 Active 2015 From Automated Load;Provi mayra: Karolina Moscoso;Stat us: Active Not Available [facility] 6 04:13:14 Squamous cell carcinoma of skin 468932251 Active 2014 From Automated Load;Provi mayra: Rachael Dobbins: Active Karen Anatoliy [facility] 9 13:57:55 Impacted cerumen 75316262 Active 2014 From Automated Load;Provi mayra: Rachael Dobbins: Active Karne Cope [facility] 9 13:57:55 Sensorine ural hearing loss 45267258 Active 2014 Provider: Ben Dobbins; atus: Active ELO Palacios [facility] 9 13:57:55 Sensorine ural hearing loss of bilateral ears 428059801 Active 2014 From Automated Load;Provi mayra: Ben Dobbins; atus: Active ELO Palacios [facility] 9 13:57:55 Cerebrova scular disease 01345044 Active 2015 From Automated Load;Provi mayra: Karolina Moscoso;Stat us: Active ELO Palacios [facility] 13:57:55 Hypertens dirk disorder 64522794 Active 2015 From Automated Load;Provi mayra: Karolina Moscoso;Stat us: Active Not Available [facility] 6 04:13:14 Disorder of nervous system due to type 2 diabetes mellitus 433751399 Active 2015 From Automated Load;Provi mayra: Karolina Moscoso;Stat us: Active ELO Palacios [facility] 13:57:55 Problem Notes None recorded. Procedures Surgical History Date Name Laterality Status Provider Name and Address Organization Details Recorded Time 11/24/19 25 DAK - Cryo AK completed Massiel Josephagata [facility] 11/23/2024 08:46:30 11/24/19 25 Blade Biopsy w/ ED&C completed Massiel Hamagata [facility] 11/23/2024 08:57:03 11/24/19 25 Blade Biopsy completed Massiel Hamagata [place] [facility] 11/23/2024 08:51:34 11/24/19 25 Destruction BN Lesions completed Massiel Hamagata [facility] 11/23/2024 08:43:36 09/11/19 25 DAK - Cryo AK completed Diana Mitchell [facility] 09/10/2024 11:24:31 09/11/19 25 Blade Biopsy completed Diana Mitchell [facility] 09/10/2024 11:23:13 07/21/19 25 Cerumen removal - Instruments, Bilateral completed Brittany Vance [facility] 07/21/2024 13:51:54 08/13/19 24 Cerumen removal - Instruments, Bilateral completed Brittany Angelam [facility] 08/13/2023 09:35:39 07/31/19 23 Cerumen removal - Instruments, Bilateral completed Daria Samir [facility] 07/30/2022 09:04:39 12/26/19 22 Smell Inventory Test completed Claudette Flores [facility] 12/25/2021 10:52:08 11/01/19 22 Cerumen removal - Instruments, Bilateral completed Claudette Flores [facility] 10/31/2021 12:32:26 07/19/19 21 Tympanogram completed AGUSTÍN PALOMINO AUD [address] [place], [address], [facility] 07/19/2020 08:43:47 07/19/19 21 Audiogram completed AGUSTÍN PALOMINO AUD [address] [place], [address], [facility] 07/19/2020 08:43:45 07/19/19 21 Cerumen removal - Instruments, Bilateral completed Nora Oviedo [facility] 07/19/2020 09:23:47 10/16/19 20 Injection Joint/Bursa, Major completed JULIO RUSHING MD [address] [place], [address], [facility] 10/16/2019 11:40:23 02/19/20 19 Destruction Premalignant Lesion(s) completed Tiana Mcdowell [facility] 02/18/2019 08:35:39 02/19/20 19 Destruction BN Lesions completed Tiana Mcdowell [facility] 02/18/2019 08:35:20 01/08/20 19 Total hip arthroplasty completed Don Fox [facility] 03/03/2019 14:20:33 08/21/19 19 Destruction [place] Lesion; trunk, arm, leg completed Willis Deutsch [facility] 08/20/2018 09:02:32 08/21/19 19 Destruction Premalignant Lesion(s) completed [facility] 08/20/2018 08:43:32 08/01/19 19 Tympanogram completed DAY MCDOWLEL, AUD [address] [place], [address], [facility] 07/31/2018 09:42:26 08/01/19 19 Audiogram completed DAY MCDOWELL, AUD [address] [place], [address], [facility] 07/31/2018 09:42:25 08/01/19 19 Audiogram completed [facility] 07/31/2018 10:08:27 08/01/19 19 [facility] 07/31/2018 10:08:21 08/01/19 19 Cerumen removal - Instruments, Bilateral completed [facility] 07/31/2018 09:14:28 02/20/20 18 Destruction Premalignant Lesion(s) completed [facility] 02/19/2018 09:05:40 02/20/20 18 Destruction BN Lesions completed [facility] 02/19/2018 09:05:51 08/15/19 18 Destruction [place] Lesion; face, ear, eyelid, nose, lip completed [facility] 08/14/2017 10:38:16 08/15/19 18 Destruction Premalignant Lesion(s) completed [facility] 08/14/2017 10:24:05 06/25/19 18 Cerumen removal - Instruments, Bilateral completed [facility] 06/25/2017 10:30:05 12/27/19 17 Destruction Premalignant Lesion(s) [facility] 12/26/2016 08:21:05 06/27/19 17 Biopsy Skin [facility] 06/27/2016 09:26:47 06/27/19 17 Destruction Premalignant Lesion(s) [facility] 06/27/2016 09:27:14 Fragmenting of kidney stone completed Sun Mcarthur [facility] 09/19/2016 08:15:44 [facility]omy [facility] 09/19[facility]2016 08:15:47 Prostatectomy (turp) completed [facility] 09/19/2016 08:16:00 Shoulder Surgery [facility] 09/19/2016 08:16:09 Knee Surgery completed [facility] 09/19/2016 08:16:16 Other completed [facility] 09/19/2016 08:16:22 Imaging Results None recorded. Procedure [...] bromide 42 mcg (0.06 %) nasal spray [place] 2 sprays 3 times a day by [...] Available Vitals Date Recorded Body temperature Systolic And Diastolic Provider Name and Address Organization Details Last Updated DateTime 11/04/2024 96.9 [degF] 153/67 mm[Hg] [facility] 11/04/2024 14:19:50 Date Recorded Body height Body temperature Systolic And Diastolic Provider Name and Address Organization Details Last Updated DateTime 11/04/2024 180.34 cm 96.5 [degF] 116/59 mm[Hg] Amy Dickey [facility] 11/04/2024 10:02:58 Social History Question Answer Notes LastModified by Organizat ion Details LastModified Time Tobacco Smoking Status [facility] 05/31/2016 08:25:52 How Much Tobacco Do You Chew? None [email or web address] Information not available 02/18/2019 Live Alone Or With Others? Alone Information not available 09/19/2016 Marital Status Informat ion not available 09/19/2016 What Was The Date Of Your Most Recent Tobacco Screening? 09/10/2024 [email or web address] Information not available 09/10/2024 Sex: Male Functional Status Question Answer Note LastModified by Organizat ion Details LastModified Time What is your level of alcohol consumption? None Information not available 09/19/2016 Do you or have you ever used smokeless tobacco? 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 Never used electronic cigarettes [email or web address] Information not available 02/18/2019 Mental Status None recorded. Family History Relationship Description Onset Age of this Age Resolved Age Notes LastModified by Organization Details LastModified Time Mother History of hypertension asalva Not available 09/2016 08:25:48 Mother Alzheimer's disease [email or web address] Not available 08:15:14 Medical History Condition Response Kidney Stones N Hyperthyroidism Y Heart Arrhythmia N Emphysema N Esophagus/swallowing troubles Y Hypothyroidism N Glaucoma N Lung Disease N Depression N Anesthesia Complications N Anxiety Disorder N Hearing Loss Y Arthritis Y Acid Reflux (GERD) Y Cancer Y Melanoma N Stroke Y Hoarseness N Alcohol Overuse/Alcohol Abuse N High Cholesterol Y Skin Cancer N Liver Disease N Snoring problems N Headaches N Kidney Disease Y Allergies/Hayfever N Heart Problems N Mental handicap N Ear or Hearing Problems Y Gallbladder Disease N Migraines N Thyroid Problems Y Goiter N Anemia N Immune System Disorder N Chest Pain N Stomach trouble N Heart Attack ([place]) N Ulcers N Diabetes Y Rheumatic Fever N Bleeding Disorder N Tuberculosis N AIDS/HIV N Hyperlipidemia N Asthma N Epilepsy/Seizures N Basal Cell Carcinoma Y Sleep Disorder N Hepatitis N Heart Disease Y Hypertension Y Past Encounters Encounter ID Performer Location Encounter Start Date Encounter Closed Date Diagnosis/Indication Diagnosis SNOMED-CT Code Diagnosis ICD10 Code Diagnosis Note [id number] JULIETH MYERS MD [address] [address] 11/04/2024 09:31:21 11/06/2024 11:13:29 Health Concerns Section Related Observation LastModified by Organization Detai ls LastModified Time None Recorded Concern Status LastModified by Organization Details LastModified Time None Recorded Payers Encounter Date Sequence Insurance Name Policy Number Policy Giron Covered Member ID Giron Member ID Guarantor Name 11/04/2024 1 [place] Nader Briggs [id number] Nader Briggs 11/04/2024 2 AARP (MEDICARE SUPPLEMENT) Nader Briggs [id number] Nader Briggs Notes Date Note Type Note [...] ride home? YES - Notes: Not Available [facility] 11/05/2024 15:44:46
--- OUTSIDE RECORDS SUMMARY | 2024-12-07 22:12 | XMS_ITS | Encounter Summary ---
Author Organization [facility] ([place], [place], [place], [place]) Address [address] [place] [address] Care Team Providers Care Sisal Picker Name Role Phone Unavailable Primary Care Provider Unavailabl e Encounter Details Date Type Department Care Team (Late st Contact Info) Description 01/06/2019 Transcribed Document [facility] Radiology [address] [place] [address] Urszula Mccullough MD [facility] [place] [address] Social History Tobacco Use Types Packs/Day Years [...]
--- OUTSIDE RECORDS SUMMARY | 2024-12-07 22:12 | XMS_ITS | Encounter Summary ---
Author Organization [employer] ([place], [place]) Address [address] [place] [address] Care Team Providers Care High Reach Operator Name Role Phone Unavailable Primary Care Provider Unavailabl e Encounter Details Date Type Department Care Team (Late st Contact Info) Description 12/03/2018 Transcribed Document [facility] Family Medicine [facility] [place] [address] ProviderBrianne MD [address], [place] [id number] Social History Tobacco Use Types Packs/Day Years [...] Electronically signed by Victor Manuel Alcala Conversion Exhaust Emissions Automotive Technician Cerner at 09/13/2022 4:22 PM CDT documented in this encounter Plan of Treatment Not on file documented as of this encounter Visit Diagnoses Not on filedocumented in this encounter
--- OUTSIDE RECORDS SUMMARY | 2024-12-07 22:12 | XMS_ITS | Encounter Summary ---
Author Organization [employer] ([place], [place]) Address [address] [place] [address] Care Team Providers Care Solar Tech Name Role Phone Unavailable Primary Care Provider Unavailabl e Encounter Details Date Type Department Care Team (Late st Contact Info) Description 12/03/2018 Transcribed Document [facility] [place] [facility] [place] [address] ProviderBrianne MD [address] [place] [id number] Social History Tobacco Use Types Packs/Day Years [...] On: 12/03/2018 13:52 EDT by NARA HEBERT, RN-Business Development ManagerCarpenter'S Assistant Progress Note Discharge Arrangements : Patient Post-Acute [...] Attend Multidisciplinary Rounds? : No NARA HEBERT, RN-Business Development Manager - 12/03/2018 13:52 EDT Electronically signed by Cari [facility] Conversion Circulation Crew Leader Cerner at 09/13/2022 4:29 PM CDT documented in this encounter Plan of Treatment Not on file documented as of this encounter Visit Diagnoses Not on filedocumented in this encounter
--- OUTSIDE RECORDS SUMMARY | 2024-12-07 22:13 | XMS_ITS | Encounter Summary ---
Author Organization [facility] Address [address] [place] [address] Care Team Providers Care Press Set Up Person Name Role Phone Oz Ramos MD Primary Care Provider [phone] John Joseph MD Unavailable [phone] Cheyenne Mitchell APRN, DEVI Unavailable [phone] Encounter Details Date Type Department Care Team [...] any time in the past 12 m [facility], were you homeless or living in [...] drink first t jeff in the morning (EYE-GREETING CARD WRITER) to steady your nerves or to get [...] Hospital Encounter [facility]PERATING RO[facility] [address] [place] [address] Carolee Gr MD [address] [place] [address] 12/25/2024 7:30 AM EDT Anesthesia Event [facility] [address] [place] [address] Sun Dean PA [address] [place] [address] 12/25/2024 7:30 AM EDT - 12/25/2024 10:00 AM EDT Surgery [address] [address] [place] [address] Carolee Gr MD [address] [facility] [address] [place] [address] REVISION, AV FISTULA, UPPER EXTREMITY [72047 (CPT )] 05/03/2025 8:00 AM EST Appointment [facility] Ultrasound [address] [place] [address] 2025 1:00 PM EST Office Visit [facility] [address], [address]rd [place] [address] Rudy Andersen MD [address] [place] [address] 05/13/2025 8:10 AM EST Office Visit [facility] Urology [address], [address] [place] [address] Cheyenne Mitchell P, SUPERCHARGE REPAIR SUPERVISOR, DNP [address] [place] [address] Scheduled Procedures Name Priority Associated Diagnoses Date/Ti me REVISION, AV FISTULA OR GRAFT, UPPER EXTREMITY ESRD (end stage renal disease) ([facility]) 12/25/2024 7:30 AM EDT documented [...] documented as of this encounter Care Teams Press Set Up Person Relationship Specialty Start Date End Date Oz Ramos MD [address] [place] [address] [address] [place] [address] PCP - General 10/07/20 John Joseph MD [address] [place] [address] Consulting Physician Urology 02/04/23 Cheyenne Mitchell, ELIZABETH, DNP [address] [place] [address] Nurse Practitioner Urology 05/13/24 documented as of this encounter
--- OUTSIDE RECORDS SUMMARY | 2024-12-07 22:13 | XMS_ITS | Encounter Summary ---
Author Organization [facility] Address [address] [place] [address] Care Team Providers Care Dermatologist Managing Partner Name Role Phone Oz Ramos MD Primary Care Provider [phone] John Joseph MD Unavailable [phone] Cheyenne Mitchell APRN, DEVI Unavailable [phone] Encounter Details Date Type Department Care Team [...] any time in the past 12 m [facility], were you homeless or living in [...] drink first t jeff in the morning (EYE-AUTO DAMAGE TRAINEE) to steady your nerves or to get [...] Hospital Encounter PAV A OPERATING ROOM [address] [place] [address] Carolee Gr MD [address] [place] [address] 12/25/2024 7:30 AM EDT Anesthesia Event [facility]PERATING RO[facility] [address] [place] [address] Sun Dean PA [address] [place] [address] 12/25/2024 7:30 AM EDT - 12/25/2024 10:00 AM EDT Surgery [facility]PER[address] [place] [address] Carolee Gr MD [address] [facility] [address] [place] [address] REVISION, AV FISTULA, UPPER EXTREMITY [73009 (CPT )] 05/03/2025 8:00 AM EST Appointment [facility] Ultrasound [address] [place] [address] 2025 1:00 PM EST Office [facility] Otol[facility]ology [address]rd [place] [address] Rudy Andersen MD [address] [place] [address] 05/13/2025 8:10 AM EST Office Visit [facility] Urology [address] [place] [address] Cheyenne Mitchell P, PLANT TECHNICIAN/CONTROL ROOM OPERATOR, DNP [address] [place] [address] Scheduled Procedures Name Priority Associated Diagnoses Date/Ti me REVISION, AV FISTULA OR GRAFT, UPPER EXTREMITY ESRD (end stage renal disease) ([facility]) 12/25/2024 7:30 AM EDT documented [...] documented as of this encounter Care Teams Dermatologist Managing Partner Relationship Specialty Start Date End Date Oz Ramos MD [address] [place] [address] [address] [place] [address] PCP - General 10/07/20 John Joseph MD [address] [place] [address] Consulting Physician Urology 02/04/23 Cheyenne Mitchell, ELIZABETH, DNP [address] [place] [address] Nurse Practitioner Urology 05/13/24 documented as of this encounter
--- OUTSIDE RECORDS SUMMARY | 2024-12-07 22:13 | XMS_ITS | Encounter Summary ---
Author Organization [facility] Address [address] [place] [address] Care Team Providers Care Conference Planner Name Role Phone Oz Ramos MD Primary Care Provider [phone] John Joseph MD Unavailable [phone] Cheyenne Mitchell APRN [facility] Unavailable [phone] Reason for Referral * Consultation (Routine) - Authorized Specialty Diagnoses / Procedures Referred By Contact Referred To Contact Dietitian / Hematology and Oncology Diagnoses History of squamous cell carcinoma History of radiation therapy Dysphagia, unspecified type Rudy Andersen MD [address] [facility] [address] [place] [address] Phone: tel:[phone] fax:[phone] [facility] Multidisciplinary Oncology Clinic [address] [place] [address] Phone: tel: fax: Referral ID Status Reason Start Date Expiration Date Visits Requested Visits Authorized [id number] Authorized Specialty Services Required 11/10/2024 05/12/2026 1 1 Scheduling Instructions *Do Not Schedule* - This referral is for managing the [facility] Dietitian workflow. Encounter Details Date Type Department Care Team (Late st Contact Info) Description 11/10/[address] [facility] Otolaryngology [address], 3rd [place] [address] Vira Margot Salmeron History of radiation therapy [...] time in the past 12 m [facility], were you homeless or living in [...] drink first t jeff in the morning (EYE-MANAGER ASSISTED LIVING) to steady your nerves or to get [...] Hospital Encounter [facility] [address] [place] [address] Carolee Gr MD [address] [place] [address] 12/25/2024 7:30 AM EDT Anesthesia Event [facility] [address] [place] [address] Sun Dean PA [address] [place] [address] 12/25/2024 7:30 AM EDT - 12/25/2024 10:00 AM EDT Surgery [facility] [address] [place] [address] Carolee Gr MD [address] [place] [address] REVISION, AV FISTULA, UPPER EXTREMITY [28034 (CPT )] 05/03/2025 8:00 AM EST Appointment [facility] Ultrasound [address], 2nd [place] [address] 2025 1:00 PM EST Office Visit [facility]ology [address], 3rd [place] [address] Rudy Andersen MD [address] [place] [address] 05/13/2025 8:10 AM EST Office Visit [facility] Urology [address], 2nd [place] [address] Cheyenne Mitchell, UNIVERSITY COUNSELOR, DNP [address] [place] [address] Scheduled Procedures Name Priority Associated Diagnoses Date/Ti me REVISION, AV FISTULA OR GRAFT, UPPER EXTREMITY ESRD (end stage renal disease) ([facility]) 12/25/2024 7:30 AM EDT Scheduled Referrals Name Type Priority Associated Diagnoses Orde r Schedule Ambulatory referral to [facility] Oncology Nutrition Outpatient Referral Routine History of squamous cell carcinoma History of radiation therapy Dysphagia, unspecified type Expected: 11/10/2024 (Approximate), Expires: 05/12/2026 documented as of this encounter Visit Diagnoses Diagnosis History of radiation therapy- Primary Personal history of irradiation, presenting hazards to health History of squamous cell carcinoma Dysphagia, unspecified type ESRD (end stage renal disease) ([facility]) End stage renal disease documented in this encounter Additional Health Concerns Assessment Noted Time PHQ-9 Depression Total Score: 4 10/31/19 25 10:22 AM EDT A fall risk assessment has been complete d for the patient 10/30/2024 10:23 AM EDT A Body Mass Index follow-up plan has been documented for the patient 10/30/2024 11:00 AM EDT documented as of this encounter Care Teams Conference Planner Relationship Specialty Start Date End Date Oz Ramos MD [address] [place] [address] [address] [place] [address] PCP - General 10/07/20 John Joseph MD [address] [address] Consulting Physician Urology 02/04/23 Cheyenne Mitchell, ELIZABETH, DNP [address] [facility] [address] [place] [address] Nurse Practitioner Urology 05/13/24 documented as of this encounter
--- OUTSIDE RECORDS SUMMARY | 2024-12-07 22:13 | XMS_ITS | Encounter Summary ---
Author Organization [facility] Address [address] [place] [address] Care Team Providers Care Clinic Scheduler Name Role Phone Oz Ramos MD Primary Care Provider [phone] John Joseph MD Unavailable [phone] Cheyenne Mitchell APRN, DEVI Unavailable [phone] Encounter Details Date Type Department Care Team (Late st Contact Info) Description 10/26/2024 Telephone [place] [facility] [address] [facility] 5th Floor Wing [address], [address] [place] [address] Carolee Gr MD [address] [facility] [address] [place] [address] Social History Tobacco Use Types [...] any time in the past 12 m [facility], were you homeless or living in [...] drink first t jeff in the morning (EYE-CHANNEL DEVELOPMENT DIRECTOR) to steady your nerves or to get rid of a hangover? 0 06/18/2024 CAGE Questionnaire Score 0 025 Utilities Answer Date Recorded In the past 12 months has th e [employer], gas, oil, or water company threatened to [...] optimal time of day to reach caller: [phone] Note: Please do not reply to this message. Follow-up communication and further actions as a result of this message need to be communicated with the patient directly, if the patient is not active onMyChart. If the patient is active on MyChart, they will receive notification of the communication/outcome via [employer]. documented in this encounter Plan of Treatment Upcoming Encounters Date Type Department Care Team (Latest Contact Info) Description 12/25/2024 7:30 AM EDT Hospital Encounter [facility] OPERATING ROOM [address] [place] [address] Carolee Gr MD [address] [place] [address] 12/25/2024 7:30 AM EDT Anesthesia Event [facility] RO[facility] [address] [place] [address] Sun Dean PA [address] [place] [address] 12/25/2024 7:30 AM EDT - 12/25/2024 10:00 AM EDT Surgery [facility] RO[facility] [address] [place] [address] Carolee Gr MD [address] [place] [address] REVISION, AV FISTULA, UPPER EXTREMITY [[id number] (CPT )] 05/03/2025 8:00 AM EST Appointment [facility] Ultrasound [address], 2nd [place] [address] 2025 1:00 PM EST Office Visit [place] [facility] Otol[facility]ology [address], 3rd [place] [address] Rudy Andersen MD [address] [place] [address] 05/13/2025 8:10 AM EST Office Visit [facility] Urology [address], [address]nd [place] [address] Cheyenne Mitchell, PHOTOTYPESETTER OPERATOR, DNP [address] [place] [address] Scheduled Procedures Name Priority Associated Diagnoses Date/Ti me REVISION, AV FISTULA OR GRAFT, UPPER EXTREMITY ESRD (end stage renal disease) ([facility]) 12/25/2024 7:30 AM EDT documented [...] documented as of this encounter Care Teams Clinic Scheduler Relationship Specialty Start Date End Date Oz Ramos MD [address] [place] [address] [address] [place] [address] PCP - General 10/07/20 John Joseph MD [address] [place] [address] Consulting Physician Urology 02/04/23 Cheyenne Mitchell APRN, DNP [address] [place] [address] Nurse Practitioner Urology 05/13/24 documented as of this encounter
--- OUTSIDE RECORDS SUMMARY | 2024-12-07 22:13 | XMS_ITS | Encounter Summary ---
Author Organization [facility] Address [address] [place] [address] Care Team Providers Care Lead Pressman [employer] Name Role Phone Oz Ramos MD Primary Care Provider [phone] John Joseph MD Unavailable [phone] Cheyenne Mitchell APRN, DEVI Unavailable [phone] Reason for Visit * Reason Comments Med Refill Encounter Details Date Type Department Care Team (Late st Contact Info) Description 11/07/2024 Refill [place] [facility] [address] [facility] 5th Floor Wing [address], [address] [place] [address] Carolee Gr MD [address] [facility] [address] [place] [address] ESRD (end stage renal disease) ([facility]) (Primary Dx) Social History Tobacco Use Types [...] any time in the past 12 m [facility], were you homeless or living in a [...] drink first t jeff in the morning (EYE-FINANCE CLERK) to steady your nerves or to get [...] Hospital Encounter PAV A OPERATING ROOM [address] [place] [address] Carolee Gr MD [address] [facility]19 [place] [address] 12/25/2024 7:30 AM EDT Anesthesia Event P[facility] A OPERATING ROOM [address] [place] [address] Sun Dean PA [address] [place] [address] 12/25/2024 7:30 AM EDT - 12/25/2024 10:00 AM EDT Surgery [facility]PERATING ROOM [address] [place] [address] Carolee Gr MD [address] [place] [address] REVISION, AV FISTULA, UPPER EXTREMITY [[id number] (CPT )] 05/03/2025 8:00 AM EST Appointment [facility] Ultrasound [address], 2nd [place] [address] 2025 1:00 PM EST Office Visit [place] [facility] Otolaryngology [address], 3rd [place] [address] Rudy Andersen MD [address] [place] [address] 05/13/2025 8:10 AM EST Office Visit [facility] Urology [address], 2nd [place] [address] Cheyenne Mitchell, MEMBER OF TECHNICAL STAFF, DNP [address] [place] [address] Scheduled Procedures Name Priority Associated Diagnoses Date/Ti me REVISION, AV FISTULA OR GRAFT, UPPER EXTREMITY ESRD (end stage renal disease) ([facility]) 12/25/2024 7:30 AM EDT documented as of this encounter Visit Diagnoses Diagnosis ESRD (end stage renal disease) ([facility])- Primary End stage renal disease ESRD (end stage renal disease) ([facility]) End stage renal disease documented [...] documented as of this encounter Care Teams Lead Pressman [employer] Relationship Specialty Start Date End Date Oz Ramos MD [address] [place] [address] [address]1 [address]1 [place] [address] PCP - General 10/07/20 John Joseph MD [address] [place] [address] Consulting Physician Urology 02/04/23 Cheyenne Mitchell APRN, DNP [address] [address] Nurse Practitioner Urology 05/13/24 documented as of this encounter
--- OUTSIDE RECORDS SUMMARY | 2024-12-07 22:13 | XMS_ITS | Encounter Summary ---
Author Organization [facility] Address [address] [place] [address] Care Team Providers Care Vacuum Conditioner Operator Name Role Phone Oz Ramos MD Primary Care Provider [phone] John Joseph MD Unavailable [phone] Cheyenne Mitchell APRN, DEVI Unavailable [phone] Encounter Details Date Type Department Care Team [...] any time in the past 12 m [facility], were you homeless or living in a usp (including now)? No 06/19/2024 CAGE ASSESSMENT Answer [...] drink first t jeff in the morning (EYE-PRIVATE EQUITY ASSOCIATE) to steady your nerves or to get [...] Hospital Encounter PAV A OPERATING ROOM [address] [place] [address] Carolee Gr MD [address] [place] [address] 12/25/2024 7:30 AM EDT Anesthesia Event PAV A OPERATING ROOM [address] [place] [address] Sun Dean PA [address] [place] [address] 12/25/2024 7:30 AM EDT - 12/25/2024 10:00 AM EDT Surgery [address]PERATING ROOM [address] [place] [address] Carolee Gr MD [address] [place] [address] REVISION, AV FISTULA, UPPER EXTREMITY [[id number] (CPT )] 05/03/2025 8:00 AM EST Appointment [facility] Ultrasound [address], [address]nd [place] [address] 2025 1:00 PM EST Office Visit [place] [facility] Otolaryngology [address], 3rd [place] [address] Rudy Andersen MD [address] [place] [address] 05/13/2025 8:10 AM EST Office Visit [facility] Urology [address], 2nd [place] [address] Cheyenne Mitchell P, DEBT COUNSELOR, DNP [address] [place] [address] Scheduled Procedures Name Priority Associated Diagnoses Date/Ti me REVISION, AV FISTULA OR GRAFT, UPPER EXTREMITY ESRD (end stage renal disease) ([facility]) 12/25/2024 7:30 AM EDT documented as of [...] documented as of this encounter Care Teams Vacuum Conditioner Operator Relationship Specialty Start Date End Date Oz Ramos MD [address] [place] [address] [address]1 [address] [place] [address] PCP - General 10/07/20 John Joseph MD [address] [place] [address] Consulting Physician Urology 02/04/23 Cheyenne Mitchell, ELIZABETH, DNP [address] [place] [address] Nurse Practitioner Urology 05/13/24 documented as of this encounter
--- OUTSIDE RECORDS SUMMARY | 2024-12-07 22:13 | XMS_ITS | Referral Summary ---
Author Organization [employer] ([place], [place], [place], [place]) Address [address] [place] [address] Care Team Providers Care Site Auditor Name Role Phone Unavailable Primary Care Provider [...]
--- OUTSIDE RECORDS SUMMARY | 2024-12-07 22:13 | XMS_ITS | Encounter Summary ---
Author Organization [facility] Address [address] [place] [address] Care Team Providers Care Socially Responsible Investment Adviser Name Role Phone Oz Ramos MD Primary Care Provider [phone] John Joseph MD Unavailable [phone] Cheyenne Mitchell APRN, DEVI Unavailable [phone] Encounter Details Date Type Department Care Team [...] in the past 12 m [facility], were you homeless or living in a correction (including now)? No 06/19/2024 CAGE ASSESSMENT Answer [...] drink first t jeff in the morning (EYE-BRAKE LINER) to steady your nerves or to get [...] Hospital Encounter PAV A OPERATING ROOM [address] [place] [address] Carolee Gr MD [address] [place] [address] 12/25/2024 7:30 AM EDT Anesthesia Event P[facility] A [facility]PERATING ROOM [address] [place] [address] Sun Dean PA [address] [place] [address] 12/25/2024 7:30 AM EDT - 12/25/2024 10:00 AM EDT Surgery [address]PERATING ROOM [address] [place] [address] Carolee Gr MD [address] [facility] [address] [place] [address] REVISION, AV FISTULA, UPPER EXTREMITY [[id number] (CPT )] 05/03/2025 8:00 AM EST Appointment [facility] Ultrasound [address]nd [place] [address] 2025 1:00 PM EST Office Visit [place] [facility] Otolaryngology [address], 3rd [place] [address] Rudy Andersen MD [address] [place] [address] 05/13/2025 8:10 AM EST Office Visit [facility] Urology [address], [address]nd [place] [address] Cheyenne Mitchell P, ORACLE SOA DEVELOPER, DNP [address] [place] [address] Scheduled Procedures Name Priority Associated Diagnoses Date/Ti me REVISION, AV FISTULA OR GRAFT, UPPER EXTREMITY ESRD (end stage renal disease) ([facility]) 12/25/2024 7:30 AM [...] documented as of this encounter Care Teams Socially Responsible Investment Adviser Relationship Specialty Start Date End Date Oz Ramos MD [address] [place] [address] [address]1 [address] [place] [address] PCP - General 10/07/20 John Joseph MD [address] [place] [address] Consulting Physician Urology 02/04/23 Cheyenne Mitchell, ELIZABETH, DNP [address] [place] [address] Nurse Practitioner Urology 05/13/24 documented as of this encounter
--- OUTSIDE RECORDS SUMMARY | 2024-12-07 22:13 | XMS_ITS | Encounter Summary ---
Author Organization [facility] Address [address] [place] [address] Care Team Providers Care Mask Design Engineer Name Role Phone Oz Ramos MD Primary Care Provider [phone] John Joseph MD Unavailable [phone] Cheyenne Mitchell APRN, DEVI Unavailable [phone] Encounter Details Date Type Department Care Team [...] in the past 12 m [facility], were you homeless or living in a prison (including now)? No 06/19/2024 CAGE ASSESSMENT Answer [...] drink first t jeff in the morning (EYE-LOCOMOTIVE SWITCH OPERATOR) to steady your nerves or to [...] Hospital Encounter PAV A OPERATING ROOM [address] [place] [address] Carolee Gr MD [address] [place] [address] 12/25/2024 7:30 AM EDT Anesthesia Event PAV A OPERATING ROOM [address] [place] [address] Sun Dean PA [address] [place] [address] 12/25/2024 7:30 AM EDT - 12/25/2024 10:00 AM EDT Surgery [address] [place] [address] Carolee Gr MD [address] [facility] [address] [place] [address] REVISION, AV FISTULA, UPPER EXTREMITY [[id number] (CPT )] 05/03/2025 8:00 AM EST Appointment [facility] Ultrasound [address]nd [place] [address] 2025 1:00 PM EST Office Visit [place] [facility] Otolaryngology [address], 3rd [place] [address] Rudy Andersen MD [address] [place] [address] 05/13/2025 8:10 AM EST Office Visit [facility] Urology [address], [address]nd [place] [address] Cheyenne Mitchell P, BLUE LINE TRIMMER, DNP [address] [place] [address] Scheduled Procedures Name Priority Associated Diagnoses Date/Ti me REVISION, AV FISTULA OR GRAFT, UPPER EXTREMITY ESRD (end stage renal disease) ([facility]) 12/25/2024 7:30 AM EDT documented as of [...] documented as of this encounter Care Teams Mask Design Engineer Relationship Specialty Start Date End Date Oz Ramos MD [address] [place] [address] [address]1 [address] [place] [address] PCP - General 10/07/20 John Joseph MD [address] [place] [address] Consulting Physician Urology 02/04/23 Cheyenne Mitchell, ELIZABETH, DNP [address] [place] [address] Nurse Practitioner Urology 05/13/24 documented as of this encounter
--- OUTSIDE RECORDS SUMMARY | 2024-12-07 22:13 | XMS_ITS | Encounter Summary ---
Author Organization [facility] Address [address] [place] [address] Care Team Providers Care Pad Tufter Name Role Phone Oz Ramos MD Primary Care Provider [phone] John Joseph MD Unavailable [phone] Cheyenne Mitchell APRN, DEVI Unavailable [phone] Encounter Details Date Type Department Care Team [...] any time in the past 12 m [facility], were you homeless or living in a nursing home (including now)? No 06/19/2024 CAGE ASSESSMENT [...] drink first t jeff in the morning (EYE-JIG BORER) to steady your nerves or to get [...] Hospital Encounter PAV A OPERATING ROOM [address] [place] [address] Carolee Gr MD [address] [facility] [address] [place] [address] 12/25/2024 7:30 AM EDT Anesthesia Event [address] A OPERATING ROOM [address] [place] [address] Sun Dean PA [address] [place] [address] 12/25/2024 7:30 AM EDT - 12/25/2024 10:00 AM EDT Surgery [address] A [address]PERATING RO[address] [place] [address] Carolee Gr MD [address] [place] [address] REVISION, AV FISTULA, UPPER EXTREMITY [[id number] (CPT )] 05/03/2025 8:00 AM EST Appointment [facility] Ultrasound [address] 2nd [place] [address] 2025 1:00 PM EST Office Visit [facility] Otolaryngology [address], 3rd [place] [address] Rudy Andersen MD [address] [place] [address] 05/13/2025 8:10 AM EST Office Visit [place] [facility] Urology [address], [address]nd [place] [address] Cheyenne Mitchell APRN, DNP [address] [facility] [place] [address] Scheduled Procedures Name Priority Associated Diagnoses Date/Ti me REVISION, AV FISTULA OR GRAFT, UPPER EXTREMITY ESRD (end stage renal disease) ([facility]) 12/25/2024 7:30 AM EDT documented as [...] documented as of this encounter Care Teams Pad Tufter Relationship Specialty Start Date End Date Oz Ramos MD [address] [place] [address] [address] [place] [address] PCP - General 10/07/20 John Joseph MD [address] [address] Consulting Physician Urology 02/04/23 Cheyenne Mitchell APRN, DNP [address] [facility] [place] [address] Nurse Practitioner Urology 05/13/24 documented as of this encounter
--- OUTSIDE RECORDS SUMMARY | 2024-12-07 22:13 | XMS_ITS | Encounter Summary ---
Author Organization [facility] Address [address] [place] [address] Care Team Providers Care Weight And Test Bar Clerk Name Role Phone Oz Ramos MD Primary Care Provider [phone] John Joseph MD Unavailable [phone] Cheyenne Mitchell APRN, DEVI Unavailable [phone] Encounter Details Date Type Department Care Team [...] any time in the past 12 m [facility], were you homeless or living in [...] drink first t jeff in the morning (EYE-DIVISION MANAGER) to steady your nerves or to [...] Hospital Encounter PAV A OPERATING ROOM [address] [place] [address] Carolee Gr MD [address] [place] [address] 12/25/2024 7:30 AM EDT Anesthesia Event PAV A OPERATING ROOM [address] [place] [address] Sun Dean PA [address] [place] [address] 12/25/2024 7:30 AM EDT - 12/25/2024 10:00 AM EDT Surgery [address] OPERATING RO[address] [place] [address] Carolee rG MD [address] [facility] [address] [place] [address] REVISION, AV FISTULA, UPPER EXTREMITY [64240 (CPT )] 05/03/2025 8:00 AM EST Appointment [facility] Ultrasound [address]nd [place] [address] 2025 1:00 PM EST Office Visit [facility] Ot[facility] [address], 3rd [place] [address] Rudy Andersen MD [address] [place] [address] 05/13/2025 8:10 AM EST Office Visit [facility] Urology [address], 2nd [place] [address] Cheyenne Mitchell P, MAP COMPILER, DNP [address] [place] [address] Scheduled Procedures Name Priority Associated Diagnoses Date/Ti me REVISION, AV FISTULA OR GRAFT, UPPER EXTREMITY ESRD (end stage renal disease) ([facility]) 12/25/2024 7:30 AM EDT documented [...] documented as of this encounter Care Teams Weight And Test Bar Clerk Relationship Specialty Start Date End Date Oz Ramos MD [address] [place] [address] [address] [place] [address] PCP - General 10/07/20 John Joseph MD [address] [place] [address] Consulting Physician Urology 02/04/23 Cheyenne Mitchell, ELIZABETH, DNP [address] [place] [address] Nurse Practitioner Urology 05/13/24 documented as of this encounter
--- OUTSIDE RECORDS SUMMARY | 2024-12-07 22:13 | XMS_ITS | Encounter Summary ---
Author Organization [facility] Address [address] [place] [address] Care Team Providers Care Packing Shed Supervisor Name Role Phone Oz Ramos MD Primary Care Provider [phone] John Joseph MD Unavailable [phone] Cheyenne Mitchell APRN, DNP Unavailable [phone] Encounter Details Date Type Department Care Team (Late st Contact Info) Description 10/23/2024 Telephone [place] [facility] Otol[facility]ology [address], 3rd [place] [address] Rashmi Paige Social History Tobacco [...] any time in the past 12 m [facility], were you homeless or living [...] drink first t jeff in the morning (EYE-FLIGHT OPERATIONS INSPECTOR) to steady your nerves or to [...] Hospital Encounter PAV A OPERATING ROOM [address] [place] [address] Carolee Gr MD [address] [place] [address] 12/25/2024 7:30 AM EDT Anesthesia Event PAV A OPERATING ROOM [address] [place] [address] Sun Dean PA [address] [place] [address] 12/25/2024 7:30 AM EDT - 12/25/2024 10:00 AM EDT Surgery PAV A OPERATING ROOM [address] [place] [address] Carolee Gr MD [address] [facility] [address] [place] [address] REVISION, AV FISTULA, UPPER EXTREMITY [25631 (CPT )] 05/03/2025 8:00 AM EST Appointment [facility] Ultrasound [address], 2nd [place] [address] 2025 1:00 PM EST Office Visit [place] [facility] [address], 3rd [place] [address] Rudy Andersen MD [address] [place] [address] 05/13/2025 8:10 AM EST Office Visit [facility] Urology [address], [address]nd [place] [address] Cheyenne Mitchell APRN, DNP [address] [place] [address] Scheduled Procedures Name Priority Associated Diagnoses Date/Ti me REVISION, AV FISTULA OR GRAFT, UPPER EXTREMITY ESRD (end stage renal disease) ([facility]) 12/25/2024 7:30 AM EDT [...] documented as of this encounter Care Teams Packing Shed Supervisor Relationship Specialty Start Date End Date Oz Ramos MD [address] [place] [address] [address] [place] [address] PCP - General 10/07/20 John Joseph MD [address] [place] [address] Consulting Physician Urology 02/04/23 Cheyenne Mitchell APRN, DNP [address] [place] [address] Nurse Practitioner Urology 05/13/24 documented as of this encounter
--- OUTSIDE RECORDS SUMMARY | 2024-12-07 22:13 | XMS_ITS | Encounter Summary ---
Author Organization [facility] Address [address] [place] [address] Care Team Providers Care Slot Operations Director Name Role Phone Oz Ramos MD Primary Care Provider [phone] John Joseph MD Unavailable [phone] Cheyenne Mitchell APRN, DEVI Unavailable [phone] Encounter Details Date Type Department Care Team (Late st Contact Info) Description 11/17/2024 Telephone [place] [facility] [address] [place] [address] Carolee Gr MD [address] [facility] [address] [place] [address] Social History Tobacco Use Types [...] were you homeless or living in a halfway (including now)? No 06/19/2024 CAGE ASSESSMENT Answer [...] drink first t jeff in the morning (EYE-RN PERITONEAL DIALYSIS) to steady your nerves or to get rid of a hangover? 0 06/18/2024 CAGE Questionnaire Score 0 025 Utilities Answer Date Recorded In the past 12 months has th e [employer], gas, oil, or water company threatened to [...] overbook per Dr. Gr. Requestsent to front office clerk to call daughter to move up appointment. [...] a call back. Thanks! Best contact number: [phone] (mobile) Optimal time of day to reach caller: ANYTIME Additional comments/information from caller: None Note: Please do not reply to this message. Follow-up communication and further actions as a result of this message need to be communicated with the patient directly, if the patient is not active onMyChart. If the patient is active on MyChart, they will receive notification of the communication/outcome via [employer]. documented in this encounter Plan of Treatment Upcoming Encounters Date Type Department Care Team (Latest Contact Info) Description 12/25/2024 7:30 AM EDT Hospital Encounter PAV A OPERATING ROOM [address] [place] [address] Carolee Gr MD [address] [place] [address] 12/25/2024 7:30 AM EDT Anesthesia Event PAV A OPERATING ROOM [address] [place] [address] Sun Dean PA [address] [place] [address] 12/25/2024 7:30 AM EDT - 12/25/2024 10:00 AM EDT Surgery PAV A OPERATING ROOM [address] [place] [address] Carolee Gr MD [address] [facility] [address] [place] [address] REVISION, AV FISTULA, UPPER EXTREMITY [02019 (CPT )] 05/03/2025 8:00 AM EST Appointment [facility] Ultrasound [address] 2nd [place] [address] 2025 1:00 PM EST Office Visit [place] [facility] [address], 3rd [place] [address] Rudy Andersen MD [address] [facility] [address] [place] [address] 05/13/2025 8:10 AM EST Office Visit [facility]rology [address], 2nd [place] [address] Cheyenne Mitchell, YARD SUPERVISOR, DNP [address] [place] [address] Scheduled Procedures Name Priority Associated Diagnoses Date/Ti me REVISION, AV FISTULA OR GRAFT, UPPER EXTREMITY ESRD (end stage renal disease) ([facility]) 12/25/2024 7:30 [...] documented as of this encounter Care Teams Slot Operations Director Relationship Specialty Start Date End Date Oz Ramos MD [address] [place] [address] [address] [place] [address] PCP - General 10/07/20 John Joseph MD [address] [place] [address] Consulting Physician Urology 02/04/23 Cheyenne Mitchell, ELIZABETH, DNP [address] [place] [address] Nurse Practitioner Urology 05/13/24 documented as of this encounter
--- OUTSIDE RECORDS SUMMARY | 2024-12-07 22:13 | XMS_ITS | Encounter Summary ---
Author Organization [facility] Address [address] [place] [address] Care Team Providers Care Rate Analyst Name Role Phone Oz Ramos MD Primary Care Provider [phone] John Joseph MD Unavailable [phone] Cheyenne Mitchell APRN, DEVI Unavailable [phone] Encounter Details Date Type Department Care Team (Late st Contact Info) Description 10/12/2024 Results [facility]Up [facility] [address], [address]nd [place] [address] Ruben Ramsay MD [address] [place] [address] Social History Tobacco Use Types [...] any time in the past 12 m [facility], were you homeless or [...] drink first t jeff in the morning (EYE-GRID INSPECTOR) to steady your nerves or to get rid of a hangover? 0 06/18/2024 CAGE Questionnaire Score 0 025 Utilities Answer Date Recorded In the past 12 months has th e [employer], gas, oil, or water company threatened to [...] Hospital Encounter PAV A OPERATING ROOM [address] [place] [address] Carolee Gr MD [address] [address] 12/25/2024 7:30 AM EDT Anesthesia Event PAV A OPERATING ROOM [address] [place] [address] Sun Dean PA [address] [place] [address] 12/25/2024 7:30 AM EDT - 12/25/2024 10:00 AM EDT Surgery PAV A OPERATING ROOM [address] [place] [address] Caorlee Gr MD [address] [place] [address] REVISION, AV FISTULA, UPPER EXTREMITY [42253 (CPT )] 05/03/2025 8:00 AM EST Appointment [facility] Ultrasound [address], [address]nd [place] [address] 2025 1:00 PM EST Office Visit [facility] [address], 3rd [place] [address] Rudy Andersen MD [address] [facility] [address] [place] [address] 05/13/2025 8:10 AM EST Office Visit [facility] Urology [address], [address]nd [place] [address] Cheyenne Mitchell, LOADING INSPECTOR, DNP [address] [facility] [address] [place] [address] Scheduled Procedures Name Priority Associated Diagnoses Date/Ti me REVISION, AV FISTULA OR GRAFT, UPPER EXTREMITY ESRD (end stage renal disease) ([facility]) 12/25/2024 7:30 AM EDT documented as of [...] documented as of this encounter Care Teams Rate Analyst Relationship Specialty Start Date End Date Oz Ramos MD [address] [place] [address] #1 [address]1 [place] [address] PCP - General 10/07/20 John Joseph MD [address] [place] [address] Consulting Physician Urology 02/04/23 Cheyenne Mitchell APRN, DNP [address] [facility] [place] [address] Nurse Practitioner Urology 05/13/24 documented as of this encounter
--- OUTSIDE RECORDS SUMMARY | 2024-12-07 22:13 | XMS_ITS | Encounter Summary ---
Author Organization [facility] Address [address] [place] [address] Care Team Providers Care Mail Delivery Supervisor Name Role Phone Oz Ramos MD Primary Care Provider [phone] John Joseph MD Unavailable [phone] Cheyenne Mitchell PRODUCE INSPECTOR, DNP Unavailable [phone] Nancy Mitchell CERTIFIED LEGAL INVESTIGATOR Unavailable Unavailable Encounter Details Date Type Department Care Team (Late st Contact Info) Description 10/16/2020 [facility] Nephrology, Bone & Mineral Metabolism [address] [facility], [address] [place] [address] Claus Gibbs MD [address] [facility] [address] [place] [address] Social History Tobacco Use Types [...] Hospital Encounter PAV A OPERATING ROOM [address] [place] [address] Carolee Gr MD [address] [facility] [address] [place] [address] 12/25/2024 7:30 AM EDT Anesthesia Event PAV A OPERATING ROOM [address] [place] [address] Sun Dean PA [address] [place] [address] 12/25/2024 7:30 AM EDT - 12/25/2024 10:00 AM EDT Surgery PAV A OPERATING ROOM [address] [place] [address] Carolee Gr MD [address] [place] [address] REVISION, AV FISTULA, UPPER EXTREMITY [49159 (CPT )] 05/03/2025 8:00 AM EST Appointment [facility] Ultrasound [address], [address]nd [place] [address] 2025 1:00 PM EST Office Visit [facility] [address], 3rd [place] [address] Rudy Andersen MD [address] [facility] [address] [place] [address] 05/13/2025 8:10 AM EST Office Visit [facility] [address], [address]nd [place] [address] Cheyenne Mitchell, PRODUCE INSPECTOR, DNP [address] [facility] [address] [place] [address] Scheduled Procedures Name Priority Associated Diagnoses Date/Ti me REVISION, AV FISTULA OR GRAFT, UPPER EXTREMITY ESRD (end stage renal disease) ([facility]) 12/25/2024 7:30 AM EDT documented as of this encounter Visit Diagnoses Not on filedocumented in this encounter Additional Health Concerns Infection Onset Date Last Indicated Resolved Time COVID-19 Rule-Out 05/28/2024 05/28/2024 05/29/2024 12:31 AM EST Respiratory Rule-Out 05/28/2024 05/28/2024 025 1:23 AM EST documented as of this encounter Care Teams Mail Delivery Supervisor Relationship Specialty Start Date End Date Oz Ramos MD [address] [place] [address] [address]1 [address] [place] [address] PCP - General 10/07/20 John Joseph MD [address] [place] [address] Consulting Physician Urology 02/04/23 Cheyenne Mitchell, PRODUCE INSPECTOR, DNP [address] [place] [address] Nurse Practitioner Urology 05/13/24 Nancy Mitchell, CERTIFIED LEGAL INVESTIGATOR TCM Nurse 06/25/24 07/24/24 documented as of this encounter
--- OUTSIDE RECORDS SUMMARY | 2024-12-07 22:13 | XMS_ITS | Encounter Summary ---
Author Organization [facility] Address [address] [place] [address] Care Team Providers Care Technical Sales Director Name Role Phone Oz Ramos MD Primary Care Provider [phone] John Joseph MD Unavailable [phone] Cheyenne Mitchell APRN [facility] Unavailable [phone] Reason for Referral * Imaging (Routine) - Closed Specialty Diagnoses / Procedures Referred By Contac t Referred To Contact Radiology Diagnoses Dysphagia, unspecified type Procedures FL Modified Barium Swallow Yadiel [place] MD [address] [place] [address] Phone: tel: fax: Referral ID Status Reason Start Date Expiration Date V isits Requested Visits Authorized [id number] Closed Perform Procedure 10/13/2024 04/14/2026 1 1 Encounter Details Date Type Department Care Team (Late st Contact Info) Description 10/13/2024 Orders Only [facility] [address] 3rd [place] [address] Margot Constantino Dysphagia, unspecified type [...] a care home (including now)? No 06/19/2024 CAGE ASSESSMENT [...] first t jeff in the morning (EYE-CUSTOMER EXPERIENCE STRATEGIST) to steady your nerves or to get [...] Hospital Encounter PAV A OPERATING ROOM [address] [place] [address] Carolee Gr MD [address] [place] [address] 12/25/2024 7:30 AM EDT Anesthesia Event PAV A OPERATING ROOM [address] [place] [address] Sun Dean PA [address] [place] [address] 12/25/2024 7:30 AM EDT - 12/25/2024 10:00 AM EDT Surgery [address] A [address]PER[address] RO[address] [place] [address] Carolee Gr MD [address] [place] [address] REVISION, AV FISTULA, UPPER EXTREMITY [84913 (CPT )] 05/03/2025 8:00 AM EST Appointment [facility] Ultrasound [address]nd [place] [address] 2025 1:00 PM EST [facility] Visit [facility] [address] 3rd [place] [address] Yadiel [place] MD [address] [place] [address] 05/13/2025 8:10 AM EST Office Visit [facility] Urology [address] [place] [address] Cheyenne Mitchell, FOUNDATION DIRECTOR, DNP [address] [place] [address] Scheduled Procedures Name Priority Associated Diagnoses Date/Ti me REVISION, AV FISTULA OR GRAFT, UPPER EXTREMITY ESRD (end stage renal disease) ([facility]) 12/25/2024 7:30 AM EDT documented as of this encounter Results * [...] varying consistencies. Fluoroscopy Time: 2.9 minutes. COMPARISON: [facility], 06/01/2024. Chest CT 05/28/2024. FINDINGS: Swallowing: Penetration [...] varying consistencies. Fluoroscopy Time: 2.9 minutes. COMPARISON: [facility], 06/01/2024. Chest CT 05/28/2024. FINDINGS: Swallowing: Penetration [...] signing this report, I, the attending physician, tinoat I have personally reviewed the images/data for [...] disease) ([facility]) End stage renal disease documented in this encounter Additional Health Concerns Assessment Noted Time PHQ-9 Depression Total Score: 0 08/27/19 25 12:37 PM EDT A fall risk assessment has been complete d for the patient 08/26/2024 12:38 PM EDT A Body Mass Index follow-up plan has been documented for the patient 09/25/2024 6:16 AM EDT documented as of this encounter Care Teams Technical Sales Director Relationship Specialty Start Date End Date Oz Ramos MD [address] [place] [address] [address] [place] [address] PCP - General 10/07/20 John Joseph MD [address] [place] [address] Consulting Physician Urology 02/04/23 Cheyenne Mitchell, FOUNDATION DIRECTOR, DNP [address] [place] [address] Nurse Practitioner Urology 05/13/24 documented as of this encounter
--- OUTSIDE RECORDS SUMMARY | 2024-12-07 22:14 | XMS_ITS | Encounter Summary ---
Author Organization [employer] ([place], [place], [place], [place]) Address [address] [place] [address] Care Team Providers Care Shoe Polisher Name Role Phone Unavailable Primary Care Provider Unavailabl e Encounter Details Date Type Department Care Team (Late st Contact Info) Description 12/01/2018 Transcribed Document [facility] [place] [facility] [place] [address] ProviderBrianne MD [address] [place] [phone] Social History Tobacco Use Types Packs/Day Years [...] with the outpatient neurologist, Dr. Moscoso at [facility] for his history of TIAs. Also [...] may or may not have included: 1. Gratis-3. 2. Vitamin B12 pills. 3. Vitamin D. [...] above. SOCIAL HISTORY: The patient lives in [place]. He is . He has two children. [...] nerves 2-12 were intact. Coordination shows intact [id number]-jp-[id number] and lfva-bg-yhte. Gait was not tested. Reflexes were 0 [...] Trans: 12/01/2018 20:45:50 CC1: Abundio Doss M.D. Electronically signed by Victor Manuel Alcala Conversion Ceramic Engineering Professor Cerner at 09/13/2022 4:38 PM CDT documented in this encounter Plan of Treatment Not on file documented as of this encounter Visit Diagnoses Not on filedocumented in this encounter
--- OUTSIDE RECORDS SUMMARY | 2024-12-07 22:14 | XMS_ITS | Encounter Summary ---
Author Organization [employer] ([place], [place], [place], [place]) Address [address] [place] [address] Care Team Providers Care Personal Investment Adviser Name Role Phone Unavailable Primary Care Provider Unavailabl e Encounter Details Date Type Department Care Team (Late st Contact Info) Description 11/30/2018 Transcribed Document [facility] Radiology [address] [place] [id number] Ashvin Irby MD [address] [place] [address] Social History Tobacco Use Types Packs/Day Years [...] 11/29/18 16:55:00 EDT, Cardiac Diet, 60 gm carbs:[id number] murray Patient Discharge Summary Orders Discharge Activity: [...]
--- OUTSIDE RECORDS SUMMARY | 2024-12-07 22:14 | XMS_ITS | Encounter Summary ---
Author Organization [employer] ([place], [place], [place]) Address [address] [place] [address] Care Team Providers Care Joint Yarner Name Role Phone Unavailable Primary Care Provider Unavailabl e Encounter Details Date Type Department Care Team (Late st Contact Info) Description 11/30/2018 Transcribed Document [facility] [place] [address] ProviderBrianne MD [address] [place] [id number] Social History Tobacco Use Types Packs/Day Years [...] these instructions at home: Medicines ??? Take fsqr-vkg-lpkvwte and prescription medicines only as told by [...] and water are not available, use hand sandblaster glass. ? Change your dressing as told by [...] 02/05/2016 Elsevier Interactive Patient Education ? 2019 [employer] documented in this encounter Plan of Treatment Not on file documented as of this encounter Visit Diagnoses Not on filedocumented in this encounter
--- OUTSIDE RECORDS SUMMARY | 2024-12-07 22:14 | XMS_ITS | Encounter Summary ---
Author Organization [employer] ([place], [place], [place], [place]) Address [address] [place] [address] Care Team Providers Care Air Traffic Control Supervisor Name Role Phone Unavailable Primary Care Provider Unavailabl e Encounter Details Date Type Department Care Team (Late st Contact Info) Description 11/28/2018 Transcribed Document [facility] Family Medicine [facility] [place] [address] ProviderBrianne MD [address] [place] [id number] Social History Tobacco Use Types Packs/Day Years [...]
--- OUTSIDE RECORDS SUMMARY | 2024-12-07 22:14 | XMS_ITS | Encounter Summary ---
Author Organization [employer] ([place], [place], [place], [place]) Address [address] [place] [address] Care Team Providers Care Preschool Paraprofessional Name Role Phone Unavailable Primary Care Provider Unavailabl e Encounter Details Date Type Department Care Team (Late st Contact Info) Description 11/30/2018 Transcribed Document [facility] Family Medicine [address] [place] [address] ProviderBrianne MD [address] [place], [place] [id number] Social History Tobacco Use Types Packs/Day Years [...] Corina Alford Rn - 11/30/2018 19:38 EDT Electronically signed by Victor Manuel Alcala Conversion Manager Document Control Cerner at 09/13/2022 4:27 PM CDT documented in this encounter Plan of Treatment Not on file documented as of this encounter Visit Diagnoses Not on filedocumented in this encounter
--- OUTSIDE RECORDS SUMMARY | 2024-12-07 22:14 | XMS_ITS | Encounter Summary ---
Author Organization [employer] ([place], [place], [place], [place]) Address [address] [place] [address] Care Team Providers Care Bulk Intake Worker Name Role Phone Unavailable Primary Care Provider Unavailabl e Encounter Details Date Type Department Care Team (Late st Contact Info) Description 11/30/2018 Transcribed Document [facility] [place] Family Medicine [facility] [place] [address] ProviderBrianne MD [facility] [place] [id number] Social History Tobacco Use Types Packs/Day Years [...] Briggs Emergency Contact #1 Phone Number : [phone] Emergency Contact #1 Relationship : daughter Emergency Contact #2 : na Emergency Contact #2 Phone Number : na Emergency Contact #2 Relationship : na Chief Complaint : pt d/c from hospital at 13:00 today, per family pt disorieted, confused, not acting right, unsteady gait. Information Obtained From : Patient, Daughter Primary Language : Burkinan Preferred Communication Mode : Verbal Communication Barrier [...] Scale Risk Level : 0-24 Low Risk [place] Fall Interventions : Adequate lighting, Assistive devices [...] Source : Stated Height Entry Format : [place] Height, Feet : 5 ft(Converted to: 152 cm, 60 Inch) Height, Inches : 11 Inch(Converted to: 0 ft 11 Inch, 27.94 cm) Clinical Height : 180.34 cm Weight Source : Bed scale Weight Entry Format : [place] Clinical Dosing Weight : 67.45 kg Weight, Pounds : 148.4 lb Body Surface Area (BSA) : 1.86 m2 Body Mass Index : 20.7 kg/m2 [place] Body Weight : 74 kg Poppy Hardin [...] Poppy Hardin RN - 11/30/2018 22:05 EDT documented in this encounter Plan of Treatment Not on file documented as of this encounter Visit Diagnoses Not on filedocumented in this encounter
--- OUTSIDE RECORDS SUMMARY | 2024-12-07 22:14 | XMS_ITS | Continuity of Care Document ---
Author Organization [facility] DAVIS Rodriguez [place] Address [address] [place] [address] Care Team Providers Care Terrazzo Worker Name Role Phone JOHANNY NORTH Referring Provider [phone] JOHANNY NORTH Primary Care Provider DALIA BARBER Software Performance Engineer Assessment No assessment recorded. Plan of Treatment Reminders Order Date Submit Date Provider Last Modified By Organization Details Last Modified Time Details Appointments [facility] 2024 07:30A M DR SARAH HALL Not available Not available Not available FOLLOW UP DAK 2025 08:10A M DALIA BARBER PA-C Not available Not available Not available Lab surgical pathology study 202430/2 [id number] [email or web address] [facility], [address] [place] [address], [id number], 11/25/2024 07:04:16 Referral None recorded. Procedures None recorded. Surgeries None recorded. Imaging None recorded. Medication Orders None recorded. Patient TargetsNo targets recorded. Patient Instructions Encounter Date Encounter Id Patient Instructions Last Modified By Organization Details Last Modified Time 11/23/2024 [id number] F/u in 6 months for FBSE. [email or web address] Not available 11/23/2024 08:41:56 Reason for Referral None Reported. Problems Name Problem SNOMED Code Status Onset Date Resolution Date Notes Provider Name and Address Organization Details Recorded Time Hyperlipi demia 43335809 Active 2015 From Automated Load;Provi mayra: Karolina Moscoso;Stat us: Active Not Available [facility] 6 04:13:14 Squamous cell carcinoma of skin 960120320 Active 2014 From Automated Load;Provi mayra: Ben Dobbins;St atus: Active [facility] 9 13:57:55 Impacted cerumen 85829111 Active 2014 From Automated Load;Provi mayra: Ben Dobbins;St atus: Active [facility] 9 13:57:55 Sensorine ural hearing loss 64116034 Active 2014 Provider: Ben Dobbins;St atus: Active [facility] 13:57:55 Sensorine ural hearing loss of bilateral ears 731594746 Active 2014 From Automated Load;Provi mayra: Ben Dobbins;St atus: Active [facility] 13:57:55 Cerebrova scular disease 55814565 Active 2015 From Automated Load;Provi mayra: Karolina Moscoso;Stat us: Active [facility] 13:57:55 Hypertens dirk disorder 70533876 Active 2015 From Automated Load;Provi mayra: Karolina Moscoso;Stat us: Active Not Available [facility] 6 04:13:14 Disorder of nervous system due to type 2 diabetes mellitus 368799598 Active 2015 From Automated Load;Provi mayra: Karolina Moscoso;Stat us: Active [facility] 13:57:55 Problem Notes None recorded. Procedures Surgical History Date Name Laterality Status Provider Name and Address Organization Details Recorded Time 11/24/19 25 DAK - Cryo AK completed Massiel Juan Ja [facility] 11/23/2024 08:46:30 11/24/19 25 Blade Biopsy w/ ED&C completed Massiel Hamagata [place] [facility] 11/23/2024 08:57:03 11/24/19 25 Blade Biopsy [place] [facility] [facility] 11/23/2024 08:51:34 11/24/19 25 Destruction BN Lesions completed Massiel Ruizagata [facility] 11/23/2024 08:43:36 09/11/19 25 DAK - Cryo AK completed iDana Mitchell [facility] 09/10/2024 11:24:31 09/11/19 25 Blade Biopsy completed Diana Mitchell [facility] 09/10/2024 11:23:13 07/21/19 25 Cerumen removal - Instruments, Bilateral completed Brittany Angelam [facility] 07/21/2024 13:51:54 08/13/19 24 Cerumen removal - Instruments, Bilateral completed Brittany Angelam [facility] 08/13/2023 09:35:39 07/31/19 23 Cerumen removal - Instruments, Bilateral completed Daria Dawson [facility] 07/30/2022 09:04:39 12/26/19 22 Smell Inventory Test completed Claudette Flores [facility] 12/25/2021 10:52:08 11/01/19 22 Cerumen removal - Instruments, Bilateral completed Claudette Flores [facility] 10/31/2021 12:32:26 07/19/19 21 Tympanogram completed AGUSTÍN PALOMINO AUD [address] [place], [address], [facility] 07/19/2020 08:43:47 07/19/19 21 Audiogram completed AGUSTÍN PALOMINO AUD [address] [place], [address], [facility] 07/19/2020 08:43:45 07/19/19 21 Cerumen removal - Instruments, Bilateral completed Nora Oviedo [facility] 07/19/2020 09:23:47 10/16/19 20 Injection Joint/Bursa, Major completed JULIO RUSHING MD [address] [place], [address], [facility] 10/16/2019 11:40:23 02/19/20 19 Destruction Premalignant Lesion(s) completed Tiana Mcdowell [facility] 02/18/2019 08:35:39 02/19/20 19 Destruction BN Lesions completed Tiana Mcdowell [facility] 02/18/2019 08:35:20 01/08/20 19 Total hip arthroplasty completed Don Fox [facility] 03/03/2019 14:20:33 08/21/19 19 Destruction MN Lesion; trunk, arm, leg completed [facility] 08/20/2018 09:02:32 08/21/19 19 Destruction Premalignant Lesion(s) completed [facility] 08/20/2018 08:43:32 08/01/19 19 Tympanogram completed DAY MCDOWELL, AUD [address] [place], [address], [facility] 07/31/2018 09:42:26 08/01/19 19 Audiogram completed DAY MCDOWELL, AUD [address] [place], [address], [facility] 07/31/2018 09:42:25 08/01/19 19 Audiogram completed Irma Bray [facility] 07/31/2018 10:08:27 08/01/19 19 Tympanometry completed Irmaregla Bray [facility] 07/31/2018 10:08:21 08/01/19 19 Cerumen removal - Instruments, Bilateral completed Irmaregla Bray [facility] 07/31/2018 09:14:28 02/20/20 18 Destruction Premalignant Lesion(s) completed [facility] 02/19/2018 09:05:40 02/20/20 18 Destruction BN Lesions completed [facility] 02/19/2018 09:05:51 08/15/19 18 Destruction MN Lesion; face, ear, eyelid, nose, lip completed [facility] 08/14/2017 10:38:16 08/15/19 18 Destruction Premalignant Lesion(s) completed [facility] 08/14/2017 10:24:05 06/25/19 18 Cerumen removal - Instruments, Bilateral completed Irma Bray [facility] 06/25/2017 10:30:05 12/27/19 17 Destruction Premalignant Lesion(s) completed Ava Johnson [facility] 12/26/2016 08:21:05 06/27/19 17 Biopsy Skin completed [facility] 06/27/2016 09:26:47 06/27/19 17 Destruction Premalignant Lesion(s) completed [facility] 06/27/2016 09:27:14 Fragmenting of kidney stone completed [facility] 09/19/2016 08:15:44 Tonsillectomy completed [facility] 09/19/2016 08:15:47 Prostatectomy (turp) completed [facility] 09/19/2016 08:16:00 Shoulder Surgery completed [facility] 09/19/2016 08:16:09 Knee Surgery completed [facility] 09/19/2016 08:16:16 Other completed [facility] 09/19/2016 08:16:22 Imaging Results None recorded. Procedure [...] bromide 42 mcg (0.06 %) nasal spray [place] 2 sprays 3 times a day by [...] Not Available Vitals Date Recorded Body height Provider Name an d Address Organization Details Last Updated DateTime 11/23/2024 180.34 cm Sally Bojorquez [facility] 11/23/2024 08:11:20 Social History Question Answer Notes LastModified by Organizat ion Details LastModified Time Tobacco Smoking Status [facility]2016 08:25:52 How Much Tobacco Do You Chew? None [email or web address] Information not available 02/18/2019 Live Alone Or With Others? Alone Information not available 09/19/2016 Marital Status Informat ion not available 09/19/2016 What Was The Date Of Your Most Recent Tobacco Screening? 09/10/2024 [email or web address] Information not available 09/10/2024 Sex: Male Functional Status Question Answer Note LastModified by Organizat ion Details LastModified Time What is your level of alcohol consumption? None Information not available 09/19/2016 Do you or have you ever used smokeless tobacco? 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 Never used electronic cigarettes [email or web address] Information not available 02/18/2019 Mental Status None recorded. Family History Relationship Description Onset Age of this Age Resolved Age Notes LastModified by Organization Details LastModified Time Mother History of hypertension [email or web address] Not available 09/2016 08:25:48 Mother Alzheimer's disease [email or web address] Not available 08:15:14 Medical History Condition Response Kidney Stones N Hyperthyroidism Y Heart Arrhythmia N Emphysema N Esophagus/swallowing troubles Y Depression N Anxiety Disorder N Arthritis Y Acid Reflux (GERD) Y Cancer Y Stroke Y Melanoma N Hoarseness N Skin Cancer N Snoring problems N Headaches N Kidney Disease Y Heart Problems N Mental handicap N Ear or Hearing Problems Y Gallbladder Disease N Migraines N Goiter N Ulcers N Rheumatic Fever N Bleeding Disorder N Tuberculosis N AIDS/HIV N Asthma N Sleep Disorder N Hepatitis N Glaucoma N Hypothyroidism N Lung Disease N Anesthesia Complications N Hearing Loss Y Alcohol Overuse/Alcohol Abuse N High Cholesterol Y Liver Disease N Allergies/Hayfever N Thyroid Problems Y Anemia N Immune System Disorder N Chest Pain N Stomach trouble N Heart Attack ([place]) N Diabetes Y Hyperlipidemia N Epilepsy/Seizures N Basal Cell Carcinoma Y Heart Disease Y Hypertension Y Past Encounters Encounter ID Performer Location Encounter Start Date Encounter Closed Date Diagnosis/Indication Diagnosis SNOMED-CT Code Diagnosis ICD10 Code Diagnosis Note [id number] JULIETH MYERS MD [address] [address] 11/04/2024 09:31:21 11/06/2024 11:13:29 [id number] DALIA BARBER PA-C [address] [address] 11/23/2024 08:05:13 11/23/2024 09:03:23 Multiple benign melanocytic nevi 924441848 D22.5 L81.4 D18.01 L82.1 Benign appearing lesions.Re assurance given.Sun protection discussed. Look for physical christian sunscreens with at least SPF 30 containing zinc oxide or titanium dioxide as active ingredient .Recommend monthly self examinatio ns and yearly full skin examinatio n with a dermatolog y provider.P atient instructed to call with any concerns or changing lesions. History of malignant neoplasm of skin 389053010 Z85.828 The scar is clear with no evidence of recurrence .Cont to monitor for any changes. Neoplasm o f uncertain behavior of skin 99479115 D48.5 The etiology of lesion(s) discussed. Biopsy [...] if lesion(s) persist. Inflamed s eborrheic keratosis 796642316 L82.0 R52 Benign appearing lesions.Si nce bothersome [...] Member ID Giron Member ID Guarantor Name 11/23/2024 1 [place] Nader Ira Chester [id number] Nader Briggs 11/23/2024 2 AARP (MEDICARE SUPPLEMENT) Nader Ira Briggs [id number] Nader Briggs Notes Date Note Type Note Provider Name and Address Organization Details Recorded Time 11/23/2024 text/html [place] [facility] daughter pt reports concern with spot on R shoulder. DALIA BARBER PA-C [address] [place], [address], [facility] 11/25/2024 07:51:24
--- OUTSIDE RECORDS SUMMARY | 2024-12-07 22:14 | XMS_ITS | Encounter Summary ---
Author Organization [employer] ([place], [place], [place], [place]) Address [address] [place] [address] Care Team Providers Care Thiokol Operator Name Role Phone Unavailable Primary Care Provider Unavailabl e Encounter Details Date Type Department Care Team (Late st Contact Info) Description 12/01/2018 Transcribed Document [facility] [place] [address] [place] [address] ProviderBrianne MD [address] [place], [place] [phone] Social History Tobacco Use Types Packs/Day Years [...] Performed On: 12/01/2018 4:37 EDT [facility] Call for Consults Consult Phone Call/Page Attempt : First call Consult, Additional Information : [place] [phone] on 12/01/18 [facility] - 12/01/2018 8:18 EDT Electronically signed by Victor Manuel Alcala Conversion Aviation Electronics Technician Cerner at 09/13/2022 4:35 PM CDT documented in this encounter Plan of Treatment Not on file documented as of this encounter Visit Diagnoses Not on filedocumented in this encounter
--- OUTSIDE RECORDS SUMMARY | 2024-12-07 22:14 | XMS_ITS | Data Portability ---
Author Organization [facility] EARNEST RodriguezS [place] CLOSED Address [address] [place] [address] Care Team Providers Care Photoengraving Sketch Maker Name Role Phone JOHANNY RAMOS Referring Provider JOHANNY RAMOS Primary Care Provider DALIA BARBER Peer Health Promoter Assessment No assessment recorded. Plan of Treatment Reminders Order Date Submit Date Provider Last Modified By Organization Details Last Modified Time Details Appointments [facility] 2024 07:30A M DR SARAH HALL Not available Not available Not available FOLLOW UP DAK 2025 08:10A M DALIA BARBER PA-C Not available Not available Not available Lab surgical patholog y study 2024 025 [email or web address] [facility], [address] [place] [address], [phone], 11/25/2024 07:04:16 surgical patholog y study 2024 025 TERENCE [facility], [address] [place] [address], [phone], 09/14/2024 11:44:20 Referral None recorded . Procedures None recorded . Surgeries None recorded . Imaging None recorded . Medication Orders ipratrop ium bromide 42 mcg (0.06 %) nasal spray 2023 024 [id number], [address], [id number], 08/13/2023 09:58:39 Patient TargetsNo targets recorded. Patient Instructions Encounter Date Encounter Id Patient Instructions Last Modified By Organization Details Last Modified Time 08/13/2023 [id number] 1. Bilateral cerumenectomy performed in office today. [...] cell carcinoma 6. F/u in one year [email or web address] Not available 08/13/2023 09:40:49 07/21/2024 [id number] 1. Bilateral cerumenectomy performed in office today. [...] drink BID 8. F/u in 1 year [email or web address] Not available 07/21/2024 14:01:55 11/23/2024 [id number] F/u in 6 months for FBSE. [email or web address] Not available 11/23/2024 08:41:56 Reason for Referral None Reported. Results Created Date Observation Date Name Description Value Unit Range Abnormal Flag Note LastModifiedBy Organization Detail LastModifiedTime 09/11/1909/10/2024 SURGI ZACH surgical SEE BELOW abnormal [place] topat holog y Repor t NAME: ANNE [...] Date: 09/14 11:44 1 Not Available [facility] [address] [place], [address], 09/14/2024 11:44:20 11/24/1911/23/2024 SURGI ZACH surgical SEE BELOW abnormal [place] topat holog y Repor t NAME: ANNE LANDERS TT PATH: [id number] PROCE DURE DATE: 11/23 SIGNO UT DATE: 11/24 Copy to: Diagn osis: A: Right super ior shoul mayra- BASAL CELL CARCI NOMA, SUPER FICIA L Comme nt: Both perip heral wali ns are invol [place] with tumor . AJCC: T1, Nx, Mx B: Left super ior shoul mayra- SQUAM OUS CELL CARCI NOMA Comme nt: The deep wali n is invol [place] with tumor . AJCC: T1, Nx, Mx SOURC E OF SPECI MEN: 1) SKIN, R SUP SHOUL MAYRA 2) SKIN, L SUP SHOUL MAYRA CLINI ZACH INFOR MATIO N: A: R/O: ISK VS SCC. B: R/O: ISK VS SCC. ED&C DONE. Gross Descr iptio n: A) The speci men consi sted of a singl e chapman tissu e fragm ent which measu red 24 x 13 x 8 mm. Speci men is seria lly secti oned (x8). All is submi tted in four casse ttes. B) The speci men consi sted of a chapman fragm ent which was trise cted and measu red 10 x 7 x 3 mm. All submi tted in one casse tte. Micro scopi c Descr iptio n: A: Super ficia l aggre an of basal oid cells are prese nt at the derma l-epi derma l junct ion. B: Irreg ular islan ds and nests of cytol ogica lly atypi zach kerat inizi ng epith elial cells infil trate the dermi s. TERESE CARL MD Sunshine d Out Date: 11/24 11:04 1 Not Available [facility] [address] [place] [address], [phone], 11/24/2024 11:04:35 Result Notes None recorded. Problems Name Problem SNOMED Code Status Onset Date Resolution Date Notes Provider Name and Address Organization Details Recorded Time Hyperlipi demia 95113353 Active 2015 From Automated Load;Provi mayra: Karolina Moscoso;Stat us: Active Not Available [facility] 6 04:13:14 Squamous cell carcinoma of skin 566899452 Active 2014 From Automated Load;Provi mayra: Avtar Valenzuela;St atus: Active [facility] 9 13:57:55 Impacted cerumen 08747683 Active 2014 From Automated Load;Provi mayra: Ton ValenzuelaSt atus: Active Karen Cope [facility] 9 13:57:55 Sensorine ural hearing loss 21038710 Active 2014 Provider: Rachael Valenzuela atus: Active Karen Cope [facility] 9 13:57:55 Sensorine ural hearing loss of bilateral ears 243384298 Active 2014 From Automated Load;Provi mayra: Avtar Valenzuela;St atus: Active Karen Anatoliy [facility] 9 13:57:55 Cerebrova scular disease 16073758 Active 2015 From Automated Load;Provi mayra: Karolina Moscoso;Stat us: Active Karen nix [facility] 9 13:57:55 Hypertens dirk disorder 22092317 Active 2015 From Automated Load;Provi mayra: Karolina Moscoso;Stat us: Active Not Available [facility] 6 04:13:14 Disorder of nervous system due to type 2 diabetes mellitus 500772723 Active 2015 From Automated Load;Provi mayra: Karolina Moscoso;Stat us: Active Karen nix [facility] 13:57:55 Problem Notes None recorded. Procedures Surgical History Date Name Laterality Status Provider Name and Address Organization Details Recorded Time 11/24/19 25 DAK - Cryo AK completed Massiel [facility] 11/23/2024 08:46:30 11/24/19 25 Blade Biopsy w/ ED&C completed Massiel Juan Ja [facility] 11/23/2024 08:57:03 11/24/19 25 Blade Biopsy [facility] 11/23/2024 08:51:34 11/24/19 25 Destruction BN Lesions completed Massiel Hamagata [facility] 11/23/2024 08:43:36 09/11/19 25 DAK - Cryo AK completed Diana Mitchell [facility] 09/10/2024 11:24:31 09/11/19 25 Blade Biopsy completed Diana Mitchell [facility] 09/10/2024 11:23:13 07/21/19 25 Cerumen removal - Instruments, Bilateral completed Brittany Vance [facility] 07/21/2024 13:51:54 08/13/19 24 Cerumen removal - Instruments, Bilateral completed Brittany Vance [facility] 08/13/2023 09:35:39 07/31/19 23 Cerumen removal - Instruments, Bilateral completed Daria Dawson [facility] 07/30/2022 09:04:39 12/26/19 22 Smell Inventory Test completed Claudette Flores [facility] 12/25/2021 10:52:08 11/01/19 22 Cerumen removal - Instruments, Bilateral completed Claudette Flores [facility] 10/31/2021 12:32:26 07/19/19 21 Tympanogram completed AGUSTÍN PALOMINO AUD [address] [place], [address], [facility] 07/19/2020 08:43:47 07/19/19 21 Audiogram completed AGUSTÍN PALOMINO AUD [address] [place], [address], [facility] 07/19/2020 08:43:45 07/19/19 21 Cerumen removal - Instruments, Bilateral completed Nora Oviedo [facility] 07/19/2020 09:23:47 10/16/19 20 Injection Joint/Bursa, Major completed JULIO RUSHING MD [address] [place], [address], [facility] 10/16/2019 11:40:23 02/19/20 19 Destruction Premalignant Lesion(s) completed Tiana Mcdowell [facility] 02/18/2019 08:35:39 02/19/20 19 Destruction BN Lesions completed Tiana Mcdowell [facility] 02/18/2019 08:35:20 01/08/20 19 Total hip arthroplasty completed Don Fox [facility] 03/03/2019 14:20:33 08/21/19 19 Destruction [place] Lesion; trunk, arm, leg completed Willis Deutsch [facility] 08/20/2018 09:02:32 08/21/19 19 Destruction Premalignant Lesion(s) completed [facility] 08/20/2018 08:43:32 08/01/19 19 Tympanogram completed DAY MCDOWELL AUD [address] [place], [address], [facility] 07/31/2018 09:42:26 08/01/19 19 Audiogram completed DAY MCDOWELL AUD [address] [place], [address], [facility] 07/31/2018 09:42:25 03/07/20 19 Audiogram completed [facility] 07/31/2018 10:08:27 08/01/19 19 Tympanometry completed [facility] 07/31/2018 10:08:21 08/01/19 19 Cerumen removal - Instruments, Bilateral completed [facility] 07/31/2018 09:14:28 02/20/20 18 Destruction Premalignant Lesion(s) completed [facility] 02/19/2018 09:05:40 02/20/20 18 Destruction BN Lesions completed [facility] 02/19/2018 09:05:51 08/15/19 18 Destruction [place] Lesion; face, ear, eyelid, nose, lip completed [facility] 08/14/2017 10:38:16 08/15/19 18 Destruction Premalignant Lesion(s) completed [facility] 08/14/2017 10:24:05 06/25/19 18 Cerumen removal - Instruments, Bilateral completed [facility] 06/25/2017 10:30:05 12/27/19 17 Destruction Premalignant Lesion(s) completed [facility] 12/26/2016 08:21:05 06/27/19 17 Biopsy Skin completed [facility] 06/27/2016 09:26:47 06/27/19 17 Destruction Premalignant Lesion(s) completed [facility] 06/27/2016 09:27:14 Fragmenting of kidney stone completed [facility] 09/19/2016 08:15:44 Tonsillectomy completed [facility] 09/19/2016 08:15:47 Prostatectomy (turp) completed [facility] 09/19/2016 08:16:00 Shoulder Surgery completed [facility] 09/19/2016 08:16:09 Knee Surgery completed [facility] 09/19/2016 08:16:16 Other completed [facility] 09/19/2016 08:16:22 Imaging Results None recorded. [...] bromide 42 mcg (0.06 %) nasal spray [place] 2 sprays 3 times a day by [...] index (BMI) Body weight Body temperature Systolic And Diastolic Provider Name and Address Organization Details Last Updated DateTime 07/21/2024 180.34 cm 20.4 kg/m2 31650.2 g 98.2 [degF] 168/69 mm[Hg] Beni Albert [facility] 5 13:21:30 Date Recorded Body height Body mass index (BMI) Body weight Body temperature Heart rate Systolic And Diastolic Provider Name and Address Organization Details Last Updated DateTime 4 180.34 cm 20.3 kg/m2 16609.6 9 g 97.9 [degF] 66 /min 162/83 mm[Hg] Za Davila [facility] 4 09:04:32 Date Recorded Body temperature Systolic And Diastolic Provider Name and Address Organization Details Last Updated DateTime 11/04/2024 96.9 [degF] 153/67 mm[Hg] Lani Davila [facility] 11/04/2024 14:19:50 Date Recorded Body height Body temperature Systolic And Diastolic Provider Name and Address Organization Details Last Updated DateTime 11/04/2024 180.34 cm 96.5 [degF] 116/59 mm[Hg] Amy Dickey [facility] 11/04/2024 10:02:58 Date Recorded Body height Provider Name an d Address Organization Details Last Updated DateTime 11/23/2024 180.34 cm Sally Bojorquez [facility] 11/23/2024 08:11:20 Social History Question Answer Notes LastModified by Organizat ion Details LastModified Time Tobacco Smoking Status [facility]2016 08:25:52 How Much Tobacco Do You Chew? None [email or web address] Information not available 02/18/2019 Live Alone Or With Others? Alone Information not available 09/19/2016 Marital Status laura Informat ion not available 09/19/2016 What Was The Date Of Your Most Recent Tobacco Screening? 09/10/2024 [email or web address] Information not available 09/10/2024 Sex: Male Functional Status Question Answer Note LastModified by Organizat ion Details LastModified Time What is your level of alcohol consumption? None Information not available 09/19/2016 Do you or have you ever used smokeless tobacco? 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 Never used electronic cigarettes [email or web address] Information not available 02/18/2019 Mental Status None [...] Pain N Stomach trouble N Heart Attack ([place]) N Ulcers N Diabetes Y Rheumatic Fever N Bleeding Disorder N Tuberculosis N AIDS/HIV N Hyperlipidemia N Asthma N Epilepsy/Seizures N Basal Cell Carcinoma Y Sleep Disorder N Hepatitis N Heart Disease Y Hypertension Y Past Encounters Encounter ID Performer Location Encounter Start Date Encounter Closed Date Diagnosis/Indication Diagnosis SNOMED-CT Code Diagnosis ICD10 Code Diagnosis Note [id number] AVTAR VALENZUELA MD CT [address] [address] [place] [address] 05/31/2016 08:22:15 05/31/2016 09:10:47 Squamous cell carcinoma of oropharynx 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.9 status post radical tonsillect jordan - no evidence of recurrence Metastatic squamous cell carcinoma 814619279 C79.9 status post left neck dissection - no evidence of recurrence Sensorineu ral hearing loss of bilateral ears 799826046 H90.3 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 Solar lentiginosis 64741 2006 L81.4 BENIGN APPEARANCE - REASSURED PT Multiple b enign melanocytic nevi 461610139 D22.9 BENIGN APPEARANCE - RETURN TO OFFICE WITH CHANGE Actinic keratosis 367278 007 L57.0 CRYO X 4 Senile hyperkeratosis 39 1130725 L82.1 BENIGN APPEARANCE - REASSURED PT [id number] PAULINE LUCAS MD SURGERY SCHEDULE [address] [place] [address] 07/18/2016 08:44:24 07/18/2016 08:44:57 [id number] KAROLINA MOSCOSO MD NEUROLOGY [facility] [address] [place] [address] 09/19/2016 09:30:45 09/19/2016 10:35:09 Cerebrovascular disease 16575390 I67.9 TIA spring 2013 in setting of [...] vegetables - RTC 1 yr Essential hypertension 47997442 I10 as above Type 2 yovani betes mellitus 51908538 E11.49 see above Hyperlipidemia 57438619 E78.5 as above [id number] JEAN-PIERRE LOMBARDI APRN [facility] [address] [place] [address] 12/26/2016 08:02:15 12/27/2016 09:07:26 Solar lentiginosis 349029400 L81.4 BENIGN APPEARANCE - REASSURED PT Multiple b enign melanocytic nevi 545201339 D22.9 BENIGN APPEARANCE - RETURN TO OFFICE WITH CHANGE History of malignant basal cell neoplasm of skin 230981593 Z85.828 NO RECURRENCE Multiple skin tags 04446 7009 L91.8 BENIGN APPEARANCE - REASSURED PT Hemangioma 718133112 D18 .00 BENIGN APPEARANCE - REASSURED PT Actinic keratosis 007 L57.0 CRYO X 4 Epidermoid cyst 73655102 6 L72.0 BENIGN APPEARANCE - REASSURED PT- NO RECURRENCE Senile hyperkeratosis 39 6745039 L82.1 BENIGN APPEARANCE - REASSURED PT [id number] AVTAR VALENZUELA MD CT ENT [address] [place] [address] 06/25/2017 09:10:27 06/25/2017 10:55:45 Squamous cell carcinoma of oropharynx 320233954 C10.9 status post radical tonsillect jordan 1997- no evidence of recurrence Metastatic squamous cell carcinoma 030886588 C79.9 status post left neck dissection 1997 - no evidence of recurrence Sensorineu ral hearing loss of bilateral ears 345920896 H90.3 Aquino's esophagus 3029 10743 K22.70 Malignant neoplasm of skin 815398799 C44.90 [id number] JEAN-PIERRE LOMBARDI APRN [facility] [address] [place] [address] 08/14/2017 09:22:33 08/20/2017 08:19:40 Solar lentiginosis 079643647 L81.4 BENIGN APPEARANCE - REASSURED PT Senile hyperkeratosis 39 2289983 L82.1 BENIGN APPEARANCE - REASSURED PT Multiple b enign melanocytic nevi 924007988 D22.9 BENIGN APPEARANCE - RETURN TO OFFICE WITH CHANGE History of malignant basal cell neoplasm of skin 282444248 Z85.828 NO EVIDENCE OF RECURRENCE Multiple skin tags 52744 7009 L91.8 BENIGN APPEARANCE - REASSURED PT Hemangioma 414791397 D18 .00 BENIGN APPEARANCE - REASSURED PT Actinic keratosis 007 L57.0 CRYO X 3SEE PROCEDURE NOTE; PATIENT ADVISED WHAT TO EXPECT FROM FREEZING Epidermoid cyst 28725549 6 L72.0 BENIGN APPEARANCE - REASSURED PT- NO RECURRENCE Neoplasm o f uncertain behavior of skin 93247821 D48.5 R/O BCCLEFT LOWER [place] BIOPSY/EDC X3GEL FOAM/PRESS URE BANDAGECON SENT SIGNEDSEE PROCEDURE NOTEWOUND CARE INSTRUCTIO CHRISTY PROVIDEDFO LLOW UP PER PATH/PRN Basal cell carcinoma of skin 762158324 C44.91 LESION TREATED ABOVE ON CHIN BIOPSY PROVEN [id number] KAROLINA MOSCOSO MD [facility]UROLOGY [facility] [address] [place] [address] 10/16/2017 10:16:10 10/16/2017 11:57:07 Cerebrovascular disease 13515978 I67.9 TIA spring 2013 in setting of [...] counseling - RTC 1 yr Essential hypertension 61139048 I10 as above - goal BP < 120/80 -- close to goal and much better controlled on current medication s Type 2 yovani betes mellitus 32671511 E11.49 see above - goal FBG <100 Hyperlipidemia 88349436 E78.5 as above continue simvastati n - goal FLP for diabetic guildeline s; per PCP - continue krill oil and CoQ10 [id number] JEAN-PIERRE J LOMBARDI, SUPERINTENDENT DRILLING [facility] [address] [place] [address] 02/19/2018 08:39:45 02/19/2018 09:16:14 Actinic keratosis 013862290 L57.0 CRYO X 2SEE PROCEDURE NOTE; PATIENT ADVISED WHAT TO EXPECT FROM FREEZING. Senile hyperkeratosis 39 8670567 L82.1 CRYO X 24 WITH IRRITATED SENSATION SEE PROCEDURE NOTE; PATIENT ADVISED WHAT TO EXPECT FROM FREEZING. OTHERS BENIGN APPEARANCE - REASSURED PT Multiple b enign melanocytic nevi 481988189 D22.9 BENIGN APPEARANCE - RETURN TO OFFICE WITH CHANGE History of malignant basal cell neoplasm of skin 882662826 Z85.828 NO EVIDENCE OF RECURRENCE Multiple skin tags 28515 7009 L91.8 BENIGN APPEARANCE - REASSURED PT Hemangioma 818976456 D18 .00 BENIGN APPEARANCE - REASSURED PT Solar lentiginosis 37795 2007 L81.4 BENIGN APPEARANCE - REASSURED PT Epidermoid cyst 51824324 6 L72.0 BENIGN APPEARANCE - REASSURED PT- NO RECURRENCE Skin sensa tion disturbance 03219903 R20.9 [id number] KAROLINA MOSCOSO MD NEUROLOGY [facility] [address] [place] [address] 07/30/2018 13:31:29 07/30/2018 15:45:06 Cerebrovascular disease 03924362 I67.9 TIA/Stroke spring 2013 in setting of [...] counseling - RTC 1 yr Essential hypertension 56236815 I10 as above; not well controlled at [...] instructio ns Type 2 yovani betes mellitus 32202694 E11.49 - continue tx of DM; on glimiperid e and pt counseled on importance of avoiding sweets, using his logs in conjunctio n with diet to adjust his diet - goal FBG <100 Hyperlipidemia 87334040 E78.5 as above continue simvastati n - goal FLP for diabetic guildeline s; per PCP - continue krill oil and CoQ10 [id number] AVTAR VALENZUELA MD CT ENT [address] [place] [address] 07/31/2018 08:24:22 07/31/2018 10:15:16 Squamous cell carcinoma of oropharynx 503567662 C10.9 status post radical tonsillect jordan 1997- no evidence of recurrence Metastatic squamous cell carcinoma 613313268 C79.9 status post left neck dissection 1997 - no evidence of recurrence Sensorineu ral hearing loss of bilateral ears 660073980 H90.3 Aquino's esophagus 3029 05856 K22.70 Malignant neoplasm of skin 242667928 C44.90 Impacted c erumen of bilateral ears 1014431381 821534 H61.[id number] [place] [address] 07/31/2018 09:23:23 07/31/2018 10:09:21 Asymmetrical sensorineural hearing loss 366254388 H90.5 [id number] JEAN-PIERRE LOMBARDI APRN [facility] [address] [place] [address] 08/20/2018 08:14:29 08/21/2018 11:06:19 Actinic keratosis 219181076 L57.0 CRYO X 4SEE PROCEDURE NOTERISKS OF CRYO SURGERY DISCUSSED; POST OP CARE INSTRUCTIO NS PROVIDED. VERBAL CONSENT TO TREAT GIVEN BY PATIENT. Epidermoid cyst 70391842 6 L72.0 BENIGN APPEARANCE - REASSURED PT- NO RECURRENCE Senile hyperkeratosis 39 9567391 L82.1 BENIGN APPEARANCE , PT REASSURED Multiple b enign melanocytic nevi 699176795 D22.9 BENIGN APPEARANCE - RETURN TO OFFICE WITH CHANGE History of malignant basal cell neoplasm of skin 515110943 Z85.828 NO EVIDENCE OF RECURRENCE Multiple skin tags 06805 7009 L91.8 BENIGN APPEARANCE - REASSURED PT Hemangioma 547911388 D18 .00 BENIGN APPEARANCE - REASSURED PT Solar lentiginosis 96064 2007 L81.4 BENIGN APPEARANCE - REASSURED PT Neoplasm o f uncertain behavior of skin 17752431 D48.5 R/O [address] BIOPSY EDC X 3GEL FOAM/PRESS URE BANDAGECON SENT SIGNEDSEE PROCEDURE NOTEWOUND CARE INSTRUCTIO NS PROVIDEDFO LLOW UP PER PATH/PRN Basal cell carcinoma of skin 865747242 C44.91 LESION TREATED ABOVE ON RIGHT SHOULDER BIOPSY PROVEN [id number] JULIO Francisco MD [facility] [address] [place] [address] [place] [address] 10/16/2018 15:17:42 10/16/2018 16:40:27 Knee pain 62679682 M25.561 Osteoarthritis of hip 23 2936800 M16.11 [id number] KAROLINA MOSCOSO MD NEUROLOGY [facility] [address] [place] [address] 12/26/2018 14:44:23 12/26/2018 16:30:59 Cerebrovascular disease 24893698 I67.9 AMS/enceph alopathy/c onfusion during hypotensio n [...] as schedule 07/29/2019 Mild neuro cognitive disorder 052526799 G31.84 mild cognitive impairment in 78 yo [...] active - he is ok to drive [id number] JULIO Francisco MD SURGERY SCHEDULE [address] [place] [address] 01/09/2019 16:51:14 01/12/2019 14:39:23 [id number] C FREDERICK MOSCOSO PA-C [facility] [address] [place] [address] 01/28/2019 13:32:22 01/28/2019 14:21:37 Postoperative care 072383260 Z48.89 Attempted to temper patient's exuberance for increased activity. Though he has no formal hip precaution s he is already had a fall from moving too quickly without appropriat e thought. Patient should not drive until off all narcotics. Patient family would like him to extend home health as they have no one available to transfer him for 2 more weeks [id number] JEAN-PIERRE LOMBARDI APRN [facility] [address] [place] [address] 02/18/2019 08:11:43 02/18/2019 09:07:43 Actinic keratosis 275111635 L57.0 CRYO x4 RISKS OF CRYO SURGERY DISCUSSED; POST OP CARE INSTRUCTIO NS PROVIDED. VERBAL CONSENT TO TREAT GIVEN BY PATIENT. RECHECK IF PERSISTING AFTER TREATMENT. Epidermoid cyst 85461982 6 L72.0 BENIGN APPEARANCE - REASSURED PT- NO RECURRENCE Senile hyperkeratosis 39 4521352 L82.1 BENIGN APPEARANCE , PT REASSURED Multiple b enign melanocytic nevi 262082417 D22.9 BENIGN APPEARANCE - RETURN TO OFFICE WITH CHANGE History of malignant basal cell neoplasm of skin 817699611 Z85.828 NO EVIDENCE OF RECURRENCE Multiple skin tags 24160 7009 L91.8 BENIGN APPEARANCE - REASSURED PT Hemangioma 958168942 D18 .00 BENIGN APPEARANCE - REASSURED PT Solar lentiginosis 06367 2007 L81.4 BENIGN APPEARANCE - REASSURED PT Inflamed s eborrheic keratosis 781850217 L82.0 CRYO x2 RISKS OF CRYO SURGERY DISCUSSED; POST OP CARE INSTRUCTIO NS PROVIDED. VERBAL CONSENT TO TREAT GIVEN BY PATIENT. RECHECK IF PERSISTING AFTER TREATMENT. [id number] JULIO Francisco MD [facility] [address] [address] 03/03/2019 13:34:57 03/03/2019 14:42:11 History of total hip arthroplasty 5810237414 06 Z96.528 [id number] AVTAR VALENZUELA MD [place] ENT [address] [place] [address] 07/14/2019 08:43:51 07/14/2019 12:26:07 Squamous cell carcinoma of skin 977563657 C44.92 Squamous c ell carcinoma of oropharynx 871596067 C10.9 - Status post radical tonsillect jordan 1997- no evidence of recurrence Metastatic squamous cell carcinoma 584868458 C79.9 - Status post left neck dissection 1997 - no evidence of recurrence Sensorineu ral hearing loss of bilateral ears 747029255 H90.3 Aquino's esophagus 3029 61456 K22.70 Malignant neoplasm of skin 593095748 C44.90 [id number] KAROLINA MOSCOSO MD NEUROLOGY [facility] [address] [place] [address] 07/29/2019 08:30:18 07/29/2019 10:39:34 Cerebrovascular disease 55631158 I67.9 AMS/enceph alopathy/c onfusion during hypotensio n [...] >50% in counseling Mild neuro cognitive disorder 293272456 G31.84 mild cognitive impairment in 79 yo [...] he at times misses taking medication s. [id number] JULIO Francisco MD [facility] CL[facility] [address] [address] 10/16/2019 08:34:33 10/16/2019 09:25:50 Greater trochanteric pain syndrome 8061526 M70.60 History of total replacement of right hip joint [id number] 02979 Z96.026 [id number] AVTAR VALENZUELA MD [facility] [address] [place] [address] 07/19/2020 08:14:02 07/19/2020 09:51:25 Squamous cell carcinoma of skin 361503378 C44.92 Squamous c ell carcinoma of oropharynx 242601404 C10.9 - Status post radical tonsillect jordan 1997- no evidence of recurrence Metastatic squamous cell carcinoma 704089351 C79.9 - Status post left neck dissection 1997 - no evidence of recurrence Sensorineu ral hearing loss of bilateral ears 680090840 H90.3 Aquino's esophagus 3029 93146 K22.70 Malignant neoplasm of skin 182724926 C44.90 [id number] ELENA RIOJAS [facility] [address] [place] [address] 07/19/2020 08:43:28 07/19/2020 09:56:00 Sensorineural hearing loss of bilateral ears 544553161 H90.3 [id number] KAROLINA MOSCOSO MD NEUROLOGY [facility] [address] [place] [address] 07/27/2020 08:10:45 07/27/2020 10:00:07 Cerebrovascular disease 00924498 I67.9 AMS/enceph alopathy/c onfusion during hypotensio n [...] BPs and resolution of acute renal failure. Phillpi has multiple vascular risk factors including 2 [...] or sooner PRN Mild neuro cognitive disorder 456523780 G31.84 mild cognitive impairment in 80 yo [...] he at times misses taking medication s. [id number] C FREDERICK MOSCOSO PA-C [facility] [address] [place] [address] 10/11/2020 11:05:41 10/11/2020 12:26:51 Greater trochanteric pain syndrome 1055846 M70.60 Patient was educated on use of [...] potential for damage to the associated tendons [id number] BARBER PHELAN PA-C [facility] [address] [address] 12/13/2020 09:39:57 12/13/2020 10:23:13 Greater trochanteric pain syndrome 7990204 M70.60 patient did not find relief with [...] well fixed without evidence of complicati on. [id number] MD [facility]LO [facility] [address] [place] [address] 10/31/2021 11:06:58 10/31/2021 12:40:10 Squamous cell carcinoma of skin 374086627 C44.92 Squamous c ell carcinoma of oropharynx 459537492 C10.9 - Status post radical tonsillect jordan 1997- no evidence of recurrence Metastatic squamous cell carcinoma 689746789 C79.9 - Status post left neck dissection 1997 - no evidence of recurrence Sensorineu ral hearing loss of bilateral ears 425431642 H90.3 Aquino's esophagus 3029 72047 K22.70 Malignant neoplasm of skin 131347339 C44.90 [id number] MD ELO ODOM ENT STEVE Francisco [facility] CLOSED [address] [place] [address] 12/25/2021 09:15:55 12/25/2021 10:55:34 Squamous cell carcinoma of oropharynx 657106166 C10.9 - Status post radical tonsillect jordan 1997- no evidence of recurrence Metastatic squamous cell carcinoma 877346054 C79.9 - Status post left neck dissection 1997 - no evidence of recurrence Sensorineu ral hearing loss of bilateral ears 403815735 H90.3 Has ordered hearing aids Taste sense altered 2718 77755 R43.2 Likely from dysosmia Sense of s kraig impaired 33098976 R43.9 Identifies 22 of 40 itemsCorre ctly on smell test [id number] AVTAR VALENZUELA MD CT ENT [facility] CLOSED [address] [place] [address] 07/30/2022 08:24:56 07/30/2022 11:05:23 Sense of smell impaired 65273443 R43.9 Identifies 22 of 40 itemsCorre ctly on smell test Taste sense altered 2718 56089 R43.2 Likely from dysosmia Squamous c ell carcinoma of oropharynx 169044760 C10.9 - Status post radical tonsillect jordan 1997- no evidence of recurrence Metastatic squamous cell carcinoma 937243398 C79.9 - Status post left neck dissection 1997 - no evidence of recurrence Sensorineu ral hearing loss of bilateral ears 333171332 H90.3 Has ordered hearing aids Finding of hearing aid 343244284 Z97.4 bilaterall y through [facility] Basal cell carcinoma of skin 750640600 C44.91 Impacted c erumen of bilateral ears 5560597554 364508 H61.23 [id number] MD ELO ODOM ENT [address] [place] [address] 08/13/2023 08:38:40 08/13/2023 10:52:51 Sense of smell impaired 86329396 R43.9 Identifies 22 of 40 itemsCorre ctly on smell test Taste sense altered 2718 07226 R43.2 Likely from dysosmia Squamous c ell carcinoma of oropharynx 050579826 C10.9 - Status post radical tonsillect jordan 1997- no evidence of recurrence 08/12/24- SUNIL Metastatic squamous cell carcinoma 543572013 C79.9 - Status post left neck dissection 1997 - no evidence of recurrence 08/13/23- SUNIL Basal cell carcinoma of skin 908206680 C44.91 08/13/23- recent removals on the pt's back. 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 Arm and neck appear to be active07/21- left side of face. x1 removal with recurrence present today Squamous c ell carcinoma of oropharynx 333372481 C10.9 - Status post radical tonsillect jordan 1997- no evidence of recurrence 08/12/24- NE07/21/24 - SUNIL Metastatic squamous cell carcinoma 163534231 C79.9 - Status post left neck dissection 1997 - no evidence of recurrence 08/13/23- SUNIL Sensorineu ral hearing loss of bilateral ears 481963073 H90.3 Has ordered hearing aids Finding of hearing aid 543353348 Z97.4 bilaterall y through [facility] Chronic ki dney disease stage 4 250539148 N18.4 Dysphagia 91717709 R13.1 0 07/21/24- with esophageal stenosis and dysphagia Stricture of esophagus 94109751 K22.2 Consider dilatation by GI Clearing t hroat - hawking 555124485 R05.9 [id number] DALIA BARBER PA-C [place] [address] [place] [address] 09/10/2024 10:25:23 09/10/2024 12:32:04 Neoplasm of uncertain behavior of skin 41813809 D48.5 The etiology of lesion(s) discussed. x1 Biopsy recommende d and completed today.1) 0.9cm firm, pink, hyperkerat otic plaque- L posterior cheek r/o SCCHealing process and wound care discussed. Will call pt with results or post to portal if benign. Actinic keratosis L57.0 The nature of the diagnosis was explained. Pre-cancer ous.x1 Treated with LN2. Healing process discussed. Pt to call with any concerns or if lesion(s) persist. Seborrheic keratosis 394 443840 L82.1 The nature of the diagnosis was explained. Appears clinically benign. Reassuranc e given.Cont inue to monitor area and call with concerns/c hanges. [id number] JULIETH MYERS MD [address] [address] 11/04/2024 09:31:21 11/06/2024 11:13:29 [id number] [place] [address] 11/23/2024 08:05:13 11/23/2024 09:03:23 Multiple benign melanocytic nevi 050410999 D22.5 L81.4 D18.01 L82.1 Benign appearing lesions.Re assurance given.Sun protection discussed. Look for physical christian sunscreens with at least SPF 30 containing zinc oxide or titanium dioxide as active ingredient .Recommend monthly self examinatio ns and yearly full skin examinatio n with a dermatolog y provider.P atient instructed to call with any concerns or changing lesions. History of malignant neoplasm of skin 098711681 Z85.828 The scar is clear with no evidence of recurrence .Cont to monitor for any changes. Neoplasm o f uncertain behavior of skin 55534312 D48.5 The etiology of lesion(s) discussed. Biopsy [...] if lesion(s) persist. Inflamed s eborrheic keratosis 852080165 L82.0 R52 Benign appearing lesions.Si nce bothersome [...] 10/31/2021 2 AARP PLAN F Nader Briggs [id number] Nader Briggs 11/30/2024 1 MEDICARE-[place] (MEDICARE) Nader Briggs [id number] Nader Briggs 10/31/2021 2 AARP (MEDICARE SUPPLEMENT) Nader Briggs [id number] Nader Briggs 11/30/2024 2 AARP (MEDICARE SUPPLEMENT) Nader Briggs [id number] Nader Briggs Notes Date Note Type Note [...] eat once a day. AVTAR VALENZUELA MD [address] [facility] [place], [address], [facility] 08/13/2023 11:22:13 07/21/2024 text/html Phillip presents in [...] accompanies him today and she is from [place]. AVTAR VALENZUELA MD [address] [place] [address], [address], [facility] 07/21/2024 17:10:05 09/10/2024 text/html spot of concern location: Cheekduration: 1+ yeartx tried: NE5mghvjw: I would like it removed. DALIA BARBER PA-C [address] [place] [address], [address], [facility] 09/10/2024 12:35:58 11/04/2024 text/html PREOP CHECKLIST1 . [...] ride home? YES - Notes: Not Available [facility] 11/05/2024 15:44:46 11/23/2024 text/html 08/2024Hx [facility] pt is accompanied by daughter pt reports concern with spot on R shoulder. DALIA BARBER PA-C [address] [place], [address], [facility] 11/25/2024 07:51:24
--- OUTSIDE RECORDS SUMMARY | 2024-12-07 22:14 | XMS_ITS | Encounter Summary ---
Author Organization [employer] ([place], [place], [place], [place]) Address [address] [place] [address] Care Team Providers Care Manager Icu Name Role Phone Unavailable Primary Care Provider Unavailabl e Encounter Details Date Type Department Care Team (Late st Contact Info) Description 11/30/2018 Transcribed Document [facility] [place] Family Medicine [facility] [place] [address] ProviderBrianne MD [address] [place] [address] Social History Tobacco Use Types Packs/Day [...] Kim MD - 11/30/2018 10:11 AM CDT [facility] [place] [address] NADER TOLENTINO :1940 Visit Time:11/29/2018 [...] on December 01, 2018 for appointment Where: [address] [place], [place] [address]- x13 [facility] (1) Medications What How Much When Instructions [...] Day tomorrow tomorrow omega-3 polyunsaturated fatty acids ([employer]'s Bounty Red Krill Oil) 350 Milligram(s) Oral [...] these instructions at home: Medicines ??? Take yqce-lym-mtaphcw and prescription medicines only as told by [...] and water are not available, use hand linen folder. ? Change your dressing as told by [...] Assistance with quitting is available by contacting 4-750-XZMCNOW. This is a free resource providing counseling, support, and referral. Or you may contact your personal physician. [place] Suicide Prevention Lifeline: The National Suicide Prevention [...] was given the opportunity to ask questions. Patient/Advertising Sales Manager Name: Patient/Advertising Sales Manager Signature: Relationship to Patient: Clinician/Hospital Advertising Sales Manager Signature: Date: documented in this encounter Plan of Treatment Not on file documented as of this encounter Visit Diagnoses Not on filedocumented in this encounter
--- OUTSIDE RECORDS SUMMARY | 2024-12-07 22:14 | XMS_ITS | Encounter Summary ---
Author Organization [employer] ([place], [place], [place], [place]) Address [address] [place] [address] Care Team Providers Care Barrel Assembler Helper Name Role Phone Unavailable Primary Care Provider Unavailabl e Encounter Details Date Type Department Care Team (Late st Contact Info) Description 12/01/2018 Transcribed Document [facility] [place] [address] [place] [address] ProviderBrianne MD [address] [place] [id number] Social History Tobacco Use Types Packs/Day Years [...] Performed On: 12/01/2018 8:17 EDT by [facility] Phone Call for Consults Consult Phone Call/Page Attempt : First call Consult, Additional Information : consult called to dr harvey emmanuel at 0835 on 12/01/18 [facility] Coord - 12/01/2018 8:35 EDT Electronically signed by Cari [facility] Conversion General Passenger Agent Cerner at 09/13/2022 4:35 PM CDT documented in this encounter Plan of Treatment Not on file documented as of this encounter Visit Diagnoses Not on filedocumented in this encounter
--- OUTSIDE RECORDS SUMMARY | 2024-12-07 22:14 | XMS_ITS | Encounter Summary ---
Author Organization [employer] ([place], [place], [place], [place]) Address [address] [place] [address] Care Team Providers Care Drum Drier Name Role Phone Unavailable Primary Care Provider Unavailabl e Encounter Details Date Type Department Care Team (Late st Contact Info) Description 12/01/2018 Transcribed Document [facility] [address] [place] [address] ProviderBrianne MD [address] [place] [id number] Social History Tobacco Use Types Packs/Day Years [...] Performed On: 12/01/2018 13:[address]T [address] [facility] [facility] [facility] Phone Call for Consults Consult Phone Call/Page Attempt : First call Consult, Additional Information : consult called to torrie solano at 1655 on 12/01/18 [facility] - 12/01/2018 16:55 EDT Electronically signed by Cari [facility] Conversion Extrusion Technician Cerner at 09/13/2022 4:30 PM CDT documented in this encounter Plan of Treatment Not on file documented as of this encounter Visit Diagnoses Not on filedocumented in this encounter
--- OUTSIDE RECORDS SUMMARY | 2024-12-07 22:14 | XMS_ITS | Encounter Summary ---
Author Organization [employer] ([place], [place], [place], [place]) Address [address] [place] [address] Care Team Providers Care Litigation Attorney Associate Name Role Phone Unavailable Primary Care Provider Unavailabl e Encounter Details Date Type Department Care Team (Late st Contact Info) Description 12/01/2018 Transcribed Document [facility] Radiology [address] [place] [address] Max Feliz MD [address] [place], [place] [address] Social History Tobacco Use Types Packs/Day Years [...] Problem list: Medical Arthritis / SNOMED CT 7098617 / Confirmed At risk for sleep apnea / IMO 43385130 / Confirmed Barretts esophagus / SNOMED CT 630660026 / Confirmed Carotid artery disease / SNOMED CT 5207112426 / Confirmed Cataract//extraction / SNOMED CT 441843437 / Confirmed Urinary catheter complication////DO NOT CATH///URINARY / SNOMED CT 7354871530 / Confirmed ARTIFICAL SPHINCTER Diabetes mellitus type II / SNOMED CT 11559159 / Confirmed Disorder of prostate//cancer / SNOMED CT 88592013 / Confirmed Urinary //artifical urinary sphincter / SNOMED CT 957799615 / Confirmed GERD - Gastro-esophageal reflux disease / SNOMED CT 6377414047 / Confirmed Hard of hearing / SNOMED CT 479105589 / Confirmed Right hip pain / SNOMED CT 07137525 / Confirmed Hyperlipidemia / SNOMED CT 77701357 / Confirmed Hypertension / SNOMED CT 92356126 / Confirmed Kidney disease///stage 3 / SNOMED CT 463378635 / Confirmed Right knee pain / SNOMED CT 19645878 / Confirmed Cancer//left side of neck / SNOMED CT 9490061513 / Confirmed Renal calculus / SNOMED CT 881725627 / Confirmed Thyroid disease / SNOMED CT 780843215 / Confirmed TIA (transient ischemic attack) 2013 and 05/2018 / SNOMED CT 112441579 / Confirmed, Active Problems (21) Arthritis At [...] EDT Height Source Stated Height Entry Format [place] Height/Length, BELARUSIAN (ft) 5 ft Height/Length BELARUSIAN 11 Inch CLINICALHEIGHT 180.34 cm [place] Body Weight 74 kg Weight Source Bed scale Weight Entry Format [place] Weight Frisian lb 148.4 lb CLINICALWEIGHT 67.45 kg Body Surface Area (BSA) 1.86 m2 Body Mass Index 20.7 kg/m2 11/30/2018 16:16 EDT Height Source Stated Height Entry Format [place] Height/Length, BELARUSIAN (ft) 5 ft Height/Length BELARUSIAN 7 Inch CLINICALHEIGHT 170.18 cm [place] Body Weight 65.16 kg Weight Source, ED Standing scale Weight Entry Format [place] Weight Frisian lb 148.4 lb CLINICALWEIGHT 67.45 kg Body [...] status post recent stent Continue with platelet [facility] surgery- consult. dc 7-7 by [facility] surfgery -Hypertension, labile Hold oral [...] can taper titrate. started lisinorpl 5 bid. [place] dictation system used. Computer program makes numerous spelling grammar mistakes. If you have any questions or concerns do not hesitate call Dr. Max Holbrook at cell phone number [phone]. documented in this encounter Plan of Treatment Not on file documented as of this encounter Visit Diagnoses Not on filedocumented in this encounter
--- OUTSIDE RECORDS SUMMARY | 2024-12-07 22:14 | XMS_ITS | Encounter Summary ---
Author Organization [employer] ([place], [place], [place], [place]) Address [address] [place] [address] Care Team Providers Care Class B Truck Driver Name Role Phone Unavailable Primary Care Provider Unavailabl e Encounter Details Date Type Department Care Team (Late st Contact Info) Description 11/29/2018 Transcribed Document [facility] [place] Family Medicine [facility] [place] [address] ProviderBrianne MD [address], [place] [id number] Social History Tobacco Use Types Packs/Day Years [...] ALBERTO DURAN, RN - 11/29/2018 5:39 EDT Electronically signed by Victor Manuel Alcala Conversion Edging Machine Operator Cerner at 09/14/2022 12:20 PM CDT documented in this encounter Plan of Treatment Not on file documented as of this encounter Visit Diagnoses Not on filedocumented in this encounter
--- OUTSIDE RECORDS SUMMARY | 2024-12-07 22:14 | XMS_ITS | Encounter Summary ---
Author Organization [employer] ([place], [place], [place], [place]) Address [address] [place] [address] Care Team Providers Care Gsa Coordinator Name Role Phone Unavailable Primary Care Provider Unavailabl e Encounter Details Date Type Department Care Team (Late st Contact Info) Description 12/01/2018 Transcribed Document [facility] [place] [facility] [place] [address] ProviderBrianne MD [address] [place] [id number] Social History Tobacco Use Types Packs/Day Years [...] Insurance 1 Health Plan: MEDICARE Policy Number: [id number] Authorization Number: Insurance 2 Health Plan: AARP N Policy Number: [id number] Authorization Number: Insurance Primary Name : MEDICARE Authorized Service Begin Date-Primary : 11/30/2018 EDT Historical Authorization Comments-Primary : No Authorization Comments Found Krista Sheldon Rn-Utilization Review - 12/01/2018 10:49 EDT Electronically signed by Victor Manuel Alcala Conversion Paint Spray Inspector Cermarian at 09/13/2022 4:37 PM CDT documented in this encounter Plan of Treatment Not on file documented as of this encounter Visit Diagnoses Not on filedocumented in this encounter
--- OUTSIDE RECORDS SUMMARY | 2024-12-07 22:14 | XMS_ITS | Encounter Summary ---
Author Organization [employer] ([place], [place], [place], [place]) Address [address] [place] [address] Care Team Providers Care Middle School Guidance Counselor Name Role Phone Unavailable Primary Care Provider Unavailabl e Encounter Details Date Type Department Care Team (Late st Contact Info) Description 11/30/2018 Transcribed Document [facility] Family Medicine [facility] [place] [address] ProviderBrianne MD [address] [place], [place] [id number] Social History Tobacco Use Types Packs/Day Years [...] Historical ProviderMD - 11/30/2018 2:00 AM CDT Rag Room Supervisor Details Entered On: 11/30/2018 4:43 EDT Performed [...]
--- OUTSIDE RECORDS SUMMARY | 2024-12-07 22:14 | XMS_ITS | Encounter Summary ---
Author Organization [employer] ([place], [place], [place], [place]) Address [address] [place] [address] Care Team Providers Care Election Assistant Name Role Phone Unavailable Primary Care Provider Unavailabl e Encounter Details Date Type Department Care Team (Late st Contact Info) Description 11/29/2018 Transcribed Document [facility] [place] [address] [place] [address] ProviderBrianne MD [address] [phone] Social History Tobacco Use Types Packs/Day Years [...] Historical ProviderMD - 11/29/2018 2:00 AM CDT Extracorporeal Technician Details Entered On: 11/29/2018 1:55 EDT Performed [...]
--- OUTSIDE RECORDS SUMMARY | 2024-12-07 22:14 | XMS_ITS | Encounter Summary ---
Author Organization [employer] ([place], [place], [place], [place]) Address [address] [place] [address] Care Team Providers Care Laundry Folder Name Role Phone Unavailable Primary Care Provider Unavailabl e Encounter Details Date Type Department Care Team (Late st Contact Info) Description 11/30/2018 Transcribed Document [facility] [place] [facility] [place] [address] ProviderBrianne MD [address] [place] [id number] Social History Tobacco Use Types Packs/Day Years [...] On: 11/30/2018 16:16 EDT by BLANCA MCCANN DREDGEMASTER Triage Across the Room Triage Date/Time : 11/30/2018 16:30 EDT Chief Complaint : pt d/c from hospital at 13:00 today, per family pt disorieted, confused, not acting right, unsteady gait. BLANCA MCCANN RN - 11/30/2018 16:30 EDT DCP GENERIC CODE Tracking Acuity : 2 - Emergent Tracking Group : [facility] BLANCA MCCANN RN - 11/30/2018 16:30 [...] 11/30/2018 16:32:27 EDT) Problems(Active) Arthritis (SNOMED CT :8078334 ) Name of Problem: Arthritis ; Recorder: JAX MENDEZ RN; Confirmation: Confirmed ; Classification: Medical ; Code: 7050574 ; Contributor System: [employer] ; Last Updated: 11/12/2018 8:30 EDT ; Life Cycle Date: 11/12/2018 ; Life Cycle Status: Active ; Vocabulary: SNOMED CT At risk for sleep apnea (IMO :40615206 ) Name of Problem: At risk for sleep apnea ; Recorder: SYSTEM, SYSTEM; Confirmation: Confirmed ; Classification: Medical ; Code: 24504825 ; Last Updated: 11/12/2018 8:53 EDT ; Life Cycle Date: 11/12/2018 ; Life Cycle Status: Active ; Vocabulary: IMO Barretts esophagus (SNOMED CT :767831906 ) Name of Problem: Barretts esophagus ; Recorder: JAX MENDEZ RN; Confirmation: Confirmed ; Classification: Medical ; Code: 492516237 ; Contributor System: [employer] ; Last Updated: 11/12/2018 8:23 EDT ; Life Cycle Date: 11/12/2018 ; Life Cycle Status: Active ; Vocabulary: SNOMED CT Cancer//left side of neck (SNOMED CT :8638104326 ) Name of Problem: Cancer//left side of neck ; Recorder: JAX MENDEZ RN; Confirmation: Confirmed ; Classification: Medical ; Code: 7155922196 ; Contributor System: [employer] ; Last Updated: 11/12/2018 8:54 EDT ; Life Cycle Date: 11/12/2018 ; Life Cycle Status: Active ; Vocabulary: SNOMED CT Carotid artery disease (SNOMED CT :2076085665 ) Name of Problem: Carotid artery disease ; Recorder: JAX MENDEZ RN; Confirmation: Confirmed ; Classification: Medical ; Code: 0373966890 ; Contributor System: [employer] ; Last Updated: 11/12/2018 8:54 EDT ; Life Cycle Date: 11/12/2018 ; Life Cycle Status: Active ; Vocabulary: SNOMED CT Cataract//extraction (SNOMED CT :453943996 ) Name of Problem: Cataract//extraction ; Recorder: JAX MENDEZ RN; Confirmation: Confirmed ; Classification: Medical ; Code: 933343147 ; Contributor System: [employer] ; Last Updated: 11/12/2018 8:26 EDT ; Life Cycle Date: 11/12/2018 ; Life Cycle Status: Active ; Vocabulary: SNOMED CT Diabetes mellitus type II (SNOMED CT :72025083 ) Name of Problem: Diabetes mellitus type II ; Recorder: JAX MENDEZ RN; Confirmation: Confirmed ; Classification: Medical ; Code: 33325853 ; Contributor System: [employer] ; Last Updated: 11/12/2018 8:23 EDT ; Life Cycle Date: 11/12/2018 ; Life Cycle Status: Active ; Vocabulary: SNOMED CT Disorder of prostate//cancer (SNOMED CT :57568354 ) Name of Problem: Disorder of prostate//cancer ; Recorder: JAX MENDEZ RN; Confirmation: Confirmed ; Classification: Medical ; Code: 55896751 ; Contributor System: [employer] ; Last Updated: 11/12/2018 8:29 EDT ; Life Cycle Date: 11/12/2018 ; Life Cycle Status: Active ; Vocabulary: SNOMED CT GERD - Gastro-esophageal reflux disease (SNOMED CT :0399177019 ) Name of Problem: GERD - Gastro-esophageal reflux disease ; Recorder: JAX MENDEZ RN; Confirmation: Confirmed ; Classification: Medical ; Code: 7759387066 ; Contributor System: [employer] ; Last Updated: 11/12/2018 8:27 EDT ; Life Cycle Date: 11/12/2018 ; Life Cycle Status: Active ; Vocabulary: SNOMED CT Hard of hearing (SNOMED CT :997616888 ) Name of Problem: Hard of hearing ; Recorder: JAX EMNDEZ RN; Confirmation: Confirmed ; Classification: Medical ; Code: 503753215 ; Contributor System: [employer] ; Last Updated: 11/12/2018 8:25 EDT ; Life Cycle Date: 11/12/2018 ; Life Cycle Status: Active ; Vocabulary: SNOMED CT Hyperlipidemia (SNOMED CT :19697549 ) Name of Problem: Hyperlipidemia ; Recorder: JAX MENDEZ RN; Confirmation: Confirmed ; Classification: Medical ; Code: 65021931 ; Contributor System: [employer] ; Last Updated: 11/12/2018 8:24 EDT ; Life Cycle Date: 11/12/2018 ; Life Cycle Status: Active ; Vocabulary: SNOMED CT Hypertension (SNOMED CT :17889197 ) Name of Problem: Hypertension ; Recorder: JAX MENDEZ RN; Confirmation: Confirmed ; Classification: Medical ; Code: 77108911 ; Contributor System: [employer] ; Last Updated: 11/12/2018 8:23 EDT ; Life Cycle Date: 11/12/2018 ; Life Cycle Status: Active ; Vocabulary: SNOMED CT Kidney disease///stage 3 ([address] :497891647 ) Name of Problem: Kidney disease///stage 3 ; Recorder: JAX MENDEZ RN; Confirmation: Confirmed ; Classification: Medical ; Code: 199424189 ; Contributor System: [employer] ; Last Updated: 11/12/2018 8:30 EDT ; Life Cycle Date: 11/12/2018 ; Life Cycle Status: Active ; Vocabulary: SNOMED CT Renal calculus (SNOMED CT :922746745 ) Name of Problem: Renal calculus ; Recorder: JAX MENDEZ RN; Confirmation: Confirmed ; Classification: Medical ; Code: 351913353 ; Contributor System: PowerChart ; Last Updated: 11/12/2018 8:42 EDT ; Life Cycle Date: 11/12/2018 ; Life Cycle Status: Active ; Vocabulary: SNOMED CT Right hip pain (SNOMED CT :89199241 ) Name of Problem: Right hip pain ; Recorder: JAX MENDEZ RN; Confirmation: Confirmed ; Classification: Medical ; Code: 40243441 ; Contributor System: [employer] ; Last Updated: 11/12/2018 8:30 EDT ; Life Cycle Date: 11/12/2018 ; Life Cycle Status: Active ; Vocabulary: SNOMED CT Right knee pain (SNOMED CT :05859318 ) Name of Problem: Right knee pain ; Recorder: JAX MENDEZ RN; Confirmation: Confirmed ; Classification: Medical ; Code: 36889226 ; Contributor System: [employer] ; Last Updated: 11/12/2018 8:31 EDT ; Life Cycle Date: 11/12/2018 ; Life Cycle Status: Active ; Vocabulary: SNOMED CT Thyroid disease (SNOMED CT :100031866 ) Name of Problem: Thyroid disease ; Recorder: JAX MENDEZ RN; Confirmation: Confirmed ; Classification: Medical ; Code: 390229553 ; Contributor System: [employer] ; Last Updated: 11/12/2018 8:24 EDT ; Life Cycle Date: 11/12/2018 ; Life Cycle Status: Active ; Vocabulary: SNOMED CT TIA (transient ischemic attack) 2013 and 05/2018 (SNOM[address] CT :752836880 ) Name of Problem: TIA (transient ischemic attack) 2013 and 05/2018 ; Recorder: JAX MENDEZ RN; Confirmation: Confirmed ; Classification: Medical ; Code: 363390531 ; Contributor System: [employer] ; Last Updated: 11/12/2018 8:25 EDT ; Life Cycle Status: Active ; Vocabulary: SNOMED CT Urinary //artifical urinary sphincter (SNOMED CT :223585299 ) Name of Problem: Urinary //artifical urinary sphincter ; Recorder: JAX MENDEZ RN; Confirmation: Confirmed ; Classification: Medical ; Code: 431705591 ; Contributor System: [employer] ; Last Updated: 11/12/2018 8:29 EDT ; Life Cycle Date: 11/12/2018 ; Life Cycle Status: Active ; Vocabulary: SNOMED CT Urinary catheter complication////DO NOT CATH///URINARY (SNOMED CT :8113280139 ) Name of Problem: Urinary catheter complication////DO NOT CATH///URINARY ; Recorder: JAX MENDEZ RN; Confirmation: Confirmed ; Classification: Medical ; Code: 6357899373 ; Contributor System: [employer] ; Last Updated: 11/12/2018 8:33 EDT ; [...] PNED ; Probability: 0 ; Diagnosis Code: [id number] ED Height and Weight Height Source : Stated Height Entry Format : [place] Height, Feet : 5 ft(Converted to: 152 cm, 60 Inch) Height, Inches : 7 Inch(Converted to: 0 ft 7 Inch, 17.78 cm) Clinical Height : 170.18 cm Weight Source, ED : Standing scale Weight Entry Format : [place] Weight, Pounds : 148.4 lb Clinical Dosing Weight : 67.45 kg Body Surface Area (BSA) : 1.78 m2 Body Mass Index : 23.3 kg/m2 [place] Body Weight (IBW) : 65.16 kg BLANCA MCCANN RN - 11/30/2018 16:30 EDT Electronically signed by Victor Manuel Alcala Conversion Mail Delivery Supervisor Cerner at 09/13/2022 4:22 PM CDT documented in this encounter Plan of Treatment Not on file documented as of this encounter Visit Diagnoses Not on filedocumented in this encounter
--- OUTSIDE RECORDS SUMMARY | 2024-12-07 22:14 | XMS_ITS | Encounter Summary ---
Author Organization [employer] ([place], [place], [place], [place]) Address [address] [place] [address] Care Team Providers Care Cloth Hand Name Role Phone Unavailable Primary Care Provider Unavailabl e Encounter Details Date Type Department Care Team (Late st Contact Info) Description 11/30/2018 Transcribed Document [facility] [place] [address] [place] [address] ProviderBrianne MD [address] [place], [place] [id number] Social History Tobacco Use Types Packs/Day Years [...] scale Pain Score During-Intervention : 0 JONESBARONSTELLABRYCE TIRDAO/Jaron 12/01/2018 13:20 EDT Image 1 - Images [...] Electronically signed by Victor Manuel Alcala Conversion Electrical Design Engineer Alpesh at 09/13/2022 4:36 PM CDT documented in this encounter Plan of Treatment Not on file documented as of this encounter Visit Diagnoses Not on filedocumented in this encounter
--- OUTSIDE RECORDS SUMMARY | 2024-12-07 22:14 | XMS_ITS | Encounter Summary ---
Author Organization [employer] ([place], [place], [place], [place]) Address [address] [place] [address] Care Team Providers Care Pulmonary Function Technologist Name Role Phone Unavailable Primary Care Provider Unavailabl e Encounter Details Date Type Department Care Team (Late st Contact Info) Description 12/01/2018 Transcribed Document [facility] [place] Medicine [address] [place] [address] ProviderBrianne MD [address] [place], [place] [phone] Social History Tobacco Use Types Packs/Day Years [...] Brianne ProviderMD - 12/01/2018 3:47 PM CDT CRAWLER TRACTOR OPERATOR Therapy Screen Entered On: 12/01/2018 15:47 EDT Performed On: 12/01/2018 15:47 EDT by NAEL LAST CRAWLER TRACTOR OPERATOR Therapy Screen Medical Chart Reviewed, CRAWLER TRACTOR OPERATOR : Yes Information Obtained From, CRAWLER TRACTOR OPERATOR : Family, Patient Therapy Screen Completed, CRAWLER TRACTOR OPERATOR : Yes Recommendations for Evaluation CRAWLER TRACTOR OPERATOR : None Therapy Screen Comment, CRAWLER TRACTOR OPERATOR : No further ST. Skills are at baseline. NAEL LAST SLP - 12/01/2018 15:47 EDT Electronically signed by Cari [facility] Conversion Airline Radio Operator Cerner at 09/13/2022 4:30 PM CDT documented in this encounter Plan of Treatment Not on file documented as of this encounter Visit Diagnoses Not on filedocumented in this encounter
--- OUTSIDE RECORDS SUMMARY | 2024-12-07 22:14 | XMS_ITS | Encounter Summary ---
Author Organization [employer] ([place], [place], [place], [place]) Address [address] [place] [address] Care Team Providers Care Gis Analyst Name Role Phone Unavailable Primary Care Provider Unavailabl e Encounter Details Date Type Department Care Team (Late st Contact Info) Description 11/28/2018 Transcribed Document [facility] [place] [facility] [place] [address] ProviderBrianne MD [address] [place], [place] [id number] Social History Tobacco Use Types Packs/Day Years [...] On: 11/28/2018 11:59 EDT by Kamila Wynn Operations Chief-Health Unit Coord Phone Call for Consults Consult Phone Call/Page Attempt : First call Consult, Additional Information : Kamila Wynn Care Asst-Health Unit Coord - 11/28/2018 15:50 EDT Electronically signed by Victor Manuel Alcala Conversion Electronic Sensing Equipment Assembler Alpesh at 09/14/2022 12:18 PM CDT documented in this encounter Plan of Treatment Not on file documented as of this encounter Visit Diagnoses Not on filedocumented in this encounter
--- OUTSIDE RECORDS SUMMARY | 2024-12-07 22:14 | XMS_ITS | Encounter Summary ---
Author Organization [facility] Address [address] [id number] Care Team Providers Care Electrical Engineer Name Role Phone Oz Ramos MD Primary Care Provider [phone] John Joseph MD Unavailable [phone] Cheyenne Mitchell APRN, DEVI Unavailable [phone] Encounter Details Date Type Department Care Team (Late st Contact Info) Description 11/11/2024 Telephone [facility] [address] [place] [address] Pascale Everett [address] [address] Social History Tobacco Use Types Packs/Day Years [...] in the past [address] [facility], were you homeless or living [...] drink first t jeff in the morning (EYE-HARDSCAPE FOREMAN) to steady your nerves or to get [...] Reason for call: nutrition counseling Referral source: PUBLISHING MANAGER Call details: Referral per PUBLISHING MANAGER after swallow eval; last clinic visit and hx reviewed. Noted ESRD. Attempted to reach pt/daughter via phone; non-urgent voice message left for pt to return call r/t nutrition. Sent written materials r/t IDDSI diet 4 and [address] PUBLISHING MANAGER [address] avail prn in clinic. Wt [...] EDT Hospital Encounter [facility] A OPERATING ROOM [address] [place] [address] Carolee Gr MD [address] [facility] [address] [place] [address] 12/25/2024 7:30 AM EDT Anesthesia Event [facility] [address] [place] [address] Sun Dean, JAKY [address] [place] [address] 12/25/2024 7:30 AM EDT - 12/25/2024 10:00 AM EDT Surgery [facility] [address] [place] [address] Carolee Gr MD [address] [facility] [address] [place] [address] REVISION, AV FISTULA, UPPER EXTREMITY [23463 (CPT )] 05/03/2025 8:00 AM EST Appointment [facility] Ultrasound [address] [place] [address] 2025 1:00 PM EST Office [address] [facility] Otolaryngology [address], [address] [place] [address] Rudy Andersen MD [address] [facility] [address] [place] [address] 05/13/2025 8:10 AM EST Office Visit [facility] Urology [address], [address] [place] [address] Cheyenne Mitchell, CLINICAL REHABILITATION LIAISON, DNP [address] [facility] [address] [place] [address] Scheduled Procedures Name Priority Associated Diagnoses Date/Ti me REVISION, AV FISTULA OR GRAFT, UPPER EXTREMITY ESRD (end stage renal disease) ([facility]) 12/25/2024 7:30 [...] documented as of this encounter Care Teams Electrical Engineer Relationship Specialty Start Date End Date Oz Ramos MD [address] [place] [address] #1 [address]1 [place] [address] PCP - General 10/07/20 John Joseph MD [address] [place] [address] Consulting Physician Urology 02/04/23 Cheyenne Mitchell, ELIZABETH, DNP [address] [place] [address] Nurse Practitioner Urology 05/13/24 documented as of this encounter
--- OUTSIDE RECORDS SUMMARY | 2024-12-07 22:14 | XMS_ITS | Encounter Summary ---
Author Organization [employer] ([place], [place], [place], [place]) Address [address] [place] [address] Care Team Providers Care Olive Packer Name Role Phone Unavailable Primary Care Provider Unavailabl e Encounter Details Date Type Department Care Team (Late st Contact Info) Description 11/30/2018 Transcribed Document [facility] [place] [facility] [place] [address] ProviderBrianne MD [facility] [place] [phone] Social History Tobacco Use Types Packs/Day Years [...] Communication Barrier : None Primary Language : Greek Any Spiritual/Cultural Needs or Requests : No [...] 11/30/2018 16:56 EDT Electronically signed by Cari [facility] Conversion Entry Level Project Coordinator Cerner at 09/13/2022 4:23 PM CDT documented in this encounter Plan of Treatment Not on file documented as of this encounter Visit Diagnoses Not on filedocumented in this encounter
--- OUTSIDE RECORDS SUMMARY | 2024-12-07 22:14 | XMS_ITS | Encounter Summary ---
Author Organization [employer] ([place], [place], [place], [place]) Address [address] [place] [address] Care Team Providers Care Cone Baker Machine Name Role Phone Unavailable Primary Care Provider Unavailabl e Encounter Details Date Type Department Care Team (Late st Contact Info) Description 11/28/2018 Transcribed Document [facility] [address] [place] [id number] Ashvin Irby MD [address] [place] [address] Social History Tobacco Use Types Packs/Day Years [...]
--- OUTSIDE RECORDS SUMMARY | 2024-12-07 22:14 | XMS_ITS | Encounter Summary ---
Author Organization [employer] ([place], [place], [place], [place]) Address [address] [place] [address] Care Team Providers Care News Director Name Role Phone Unavailable Primary Care Provider Unavailabl e Encounter Details Date Type Department Care Team (Late st Contact Info) Description 11/30/2018 Transcribed Document [facility] [place] Medicine [address] [place] [address] ProviderBrianne MD [address] [place], [place] [phone] Social History Tobacco Use Types Packs/Day Years [...] Electronically signed by Victor Manuel Alcala Conversion Director Integrated Svetlananer at 09/14/2022 12:16 PM CDT documented in this encounter Plan of Treatment Not on file documented as of this encounter Visit Diagnoses Not on filedocumented in this encounter
--- OUTSIDE RECORDS SUMMARY | 2024-12-07 22:14 | XMS_ITS | Encounter Summary ---
Author Organization [employer] ([place], [place], [place], [place]) Address [address] [place] [address] Care Team Providers Care Video Editor Name Role Phone Unavailable Primary Care Provider Unavailabl e Encounter Details Date Type Department Care Team (Late st Contact Info) Description 11/28/2018 Transcribed Document [facility] [place] [facility] [place] [address] ProviderBrianne MD [facility] [place], [place] [phone] Social History Tobacco Use Types Packs/Day Years [...] : jaycob Emergency Contact #1 Relationship : [phone] Emergency Contact #2 : none Emergency Contact #2 Phone Number : none Emergency Contact #2 Relationship : none Primary Language : Upper Sorbian Communication Barrier : None SEBASTIAN HUFF Rn [...] Scale Risk Level : 25-45 Medium Risk Ulen Fall Interventions : Adequate lighting, Personal items [...] Source : Measured Height Entry Format : [place] Height, Feet : 5 ft(Converted to: 152 cm, 60 Inch) Height, Inches : 11 Inch(Converted to: 0 ft 11 Inch, 27.94 cm) Clinical Height : 180.34 cm Weight Source : Standing scale Weight Entry Format : [place] Clinical Dosing Weight : 68.18 kg Weight, Pounds : 150 lb Body Surface Area (BSA) : 1.87 m2 Body Mass Index : 21 kg/m2 [place] Body Weight : 74 kg SEBASTIAN HUFF [...] Electronically signed by Victor Manuel Alcala Conversion Retail Support Manager Cerner at 09/14/2022 12:14 PM CDT documented in this encounter Plan of Treatment Not on file documented as of this encounter Visit Diagnoses Not on filedocumented in this encounter
--- OUTSIDE RECORDS SUMMARY | 2024-12-07 22:14 | XMS_ITS | Encounter Summary ---
Author Organization [employer] ([place], [place], [place], [place]) Address [address] [place] [address] Care Team Providers Care Foxer Name Role Phone Unavailable Primary Care Provider Unavailabl e Encounter Details Date Type Department Care Team (Late st Contact Info) Description 11/30/2018 Transcribed Document [facility] [place] Medicine [facility] [place] [address] ProviderBrianne MD [facility] [place], [place] [phone] Social History Tobacco Use Types Packs/Day Years [...] Carina Barriga Rn - 11/30/2018 12:54 EDT Electronically signed by Victor Manuel Alcala Conversion Air Conditioning Unit Assembler Cerner at 09/14/2022 12:17 PM CDT documented in this encounter Plan of Treatment Not on file documented as of this encounter Visit Diagnoses Not on filedocumented in this encounter
--- OUTSIDE RECORDS SUMMARY | 2024-12-07 22:14 | XMS_ITS | Encounter Summary ---
Author Organization [employer] ([place], [place], [place], [place]) Address [address] [place] [address] Care Team Providers Care Laster Hand Name Role Phone Unavailable Primary Care Provider Unavailabl e Encounter Details Date Type Department Care Team (Late st Contact Info) Description 11/30/2018 Transcribed Document [facility] [place] Family Medicine [facility] [place] [address] ProviderBrianne MD [address] [place], [place] [id number] Social History Tobacco Use Types Packs/Day Years [...] Carina Barriga Rn - 11/30/2018 8:28 EDT Electronically signed by Victor Manuel Alcala Conversion Correctional Officer Chief Cerner at 09/14/2022 12:15 PM CDT documented in this encounter Plan of Treatment Not on file documented as of this encounter Visit Diagnoses Not on filedocumented in this encounter
--- OUTSIDE RECORDS SUMMARY | 2024-12-07 22:14 | XMS_ITS | Encounter Summary ---
Author Organization [facility] Address [address] [place] [address] Care Team Providers Care Mechanical Maintenance Supervisor Name Role Phone Oz Ramos MD Primary Care Provider [phone] John Joseph MD Unavailable [phone] Cheyenne Mitchell APRN, DEVI Unavailable [phone] Encounter Details Date Type Department Care Team [...] time in the past 12 m [facility], were you homeless or living in [...] drink first t jeff in the morning (EYE-MICA WASHER GLUER) to steady your nerves or to get [...] Hospital Encounter [facility] RO[facility] [address] [place] [address] Carolee Gr MD [address] [place] [address] 12/25/2024 7:30 AM EDT Anesthesia Event [facility] RO[facility] [address] [place] [address] Sun Dean PA [address] [place] [address] 12/25/2024 7:30 AM EDT - 12/25/2024 10:00 AM EDT Surgery [facility] [address] [place] [address] Carolee Gr MD [address] [facility] [address] [place] [address] REVISION, AV FISTULA, UPPER EXTREMITY [15699 (CPT )] 05/03/2025 8:00 AM EST Appointment [facility] Ultrasound [address] [place] [address] 2025 1:00 PM EST Office Visit [place] [facility] Ot[facility] [address], [address] [place] [address] Rudy Andersen MD [address] [place] [address] 05/13/2025 8:10 AM EST Office Visit [facility] Urology [address], [address] [place] [address] Cheyenne Mitchell P, ELEMENTARY SUBSTITUTE TEACHER, DNP [address] [place] [address] Scheduled Procedures Name Priority Associated Diagnoses Date/Ti me REVISION, AV FISTULA OR GRAFT, UPPER EXTREMITY ESRD (end stage renal disease) ([facility]) 12/25/2024 7:30 AM EDT documented as of [...] as of this encounter Care Teams Mechanical Maintenance Supervisor Relationship Specialty Start Date End Date Oz Ramos MD [address] [place] [address] #1 [address]1 [place] [address] PCP - General 10/07/20 John Joseph MD [address] [place] [address] Consulting Physician Urology 02/04/23 Cheyenne Mitchell, ELIZABETH, DNP [address] [place] [address] Nurse Practitioner Urology 05/13/24 documented as of this encounter
--- OUTSIDE RECORDS SUMMARY | 2024-12-07 22:14 | XMS_ITS | Encounter Summary ---
Author Organization [employer] ([place], [place], [place], [place]) Address [address] [place] [address] Care Team Providers Care Emergency Medicine Specialist Name Role Phone Unavailable Primary Care Provider Unavailabl e Encounter Details Date Type Department Care Team (Late st Contact Info) Description 11/30/2018 Transcribed Document [facility] [place] [facility] [place] [address] ProviderBrianne MD [address] [place] [id number] Social History Tobacco Use Types Packs/Day Years [...] Diagnostic Results Radiology Results (Last 48 hours) [id number] -- 11/30/2018 19:19 CTA Head (11/30/2018 18:22) [...] Lymph # 1.45 x10(3)/uL 11/30/2018 17:00 EDT Keith % 13.0 % (High) 11/30/2018 17:00 EDT Keith # 1.15 K/uL (High) 11/30/2018 17:00 EDT [...] Appearance CLEAR2 11/30/2018 18:20 EDT Urine Specific [place] 1.009 11/30/2018 18:20 EDT Urine pH Dipstick [...] 11/30/18 19:18:00 EDT, Full Code, Continuous Order Electronically signed by Cari [facility] Conversion Location And Measurement Technician Cerner at 09/13/2022 4:29 PM CDT documented in this encounter Plan of Treatment Not on file documented as of this encounter Visit Diagnoses Not on filedocumented in this encounter
--- OUTSIDE RECORDS SUMMARY | 2024-12-07 22:14 | XMS_ITS | Encounter Summary ---
Author Organization [employer] ([place], [place], [place], [place]) Address [address] [place] [address] Care Team Providers Care Shrimp Picker Name Role Phone Unavailable Primary Care Provider Unavailabl e Encounter Details Date Type Department Care Team (Late st Contact Info) Description 11/30/2018 Transcribed Document [facility] [place] [facility] [place] [address] ProviderBrianne MD [facility] [place] [id number] Social History Tobacco Use Types Packs/Day Years [...] shoulder///torn rotator, prostatectomy. Allergies NSAIDs (Kidney disease) documented in this encounter Plan of Treatment Not on file documented as of this encounter Visit Diagnoses Not on filedocumented in this encounter
--- OUTSIDE RECORDS SUMMARY | 2024-12-07 22:14 | XMS_ITS | Encounter Summary ---
Author Organization [employer] ([place], [place], [place], [place]) Address [address] [place] [address] Care Team Providers Care Stem Shaper Name Role Phone Unavailable Primary Care Provider Unavailabl e Encounter Details Date Type Department Care Team (Late st Contact Info) Description 11/30/2018 Transcribed Document [facility] [place] [facility] [place] [address] ProviderBrianne MD [address], [place] [phone] Social History Tobacco Use Types Packs/Day Years [...] EDT Height Source Stated Height Entry Format [place] Height/Length, [place] (ft) 5 ft Height/Length [place] 7 Inch CLINICALHEIGHT 170.18 cm [place] Body Weight 65.16 kg Weight Source, ED Standing scale Weight Entry Format [place] Weight [place] lb 148.4 lb CLINICALWEIGHT 67.45 kg Body [...] % . General: Alert, no acute distress. Morning View coma scale: Eye response: 4 /4, verbal [...] ED Adult Triage: ED Clinical Reconciliation: ED [employer] advisor: Lactic Acid Level with Reflex if Indicated: Normal Saline Flush: 10 mL, IV Push, 1-Time POC Blood Glucose Monitoring: PT/INR Prothrombin Time: Pulse Oximetry Continuous Monitoring: Saline Lock Insert: Troponin I Ultra: Urinalysis w Microscopic if Indicated: iopamidol: 75 mL, IV Push, ADHOC. Electrocardiogram: Time 11/30/2018 16:29:00, rate 60, normal sinus rhythm, No ST changes, no ectopy, normal MT & QRS intervals, EP Interp. Results review: Lab results : Lab Results 11/30/2018 16:53 EDT Device Comment 1 11/30/2018 18:20 EDT Urine Type U CleanCatch Urine Color Yellow Urine Appearance Clear Urine Specific [place] 1.009 Urine pH Dipstick 5.5 LOW Urine [...] 16.3 % LOW Lymph # 1.45 x10(3)/uL [place] % 13.0 % HI [place] # 1.15 K/uL HI Eos % 1.5 [...] 11/29/2018 20:42 EDT Glucose POC2 175 mg/dL [place] 11/29/2018 17:42 EDT Glucose POC2 95 mg/dL 11/29/2018 16:49 EDT Glucose POC2 73 mg/dL 11/29/2018 11:43 EDT Device Comment 1 Glucose POC2 135 mg/dL [place] 11/29/2018 6:50 EDT Device Comment 1 Glucose POC2 115 mg/dL [place] 11/29/2018 4:47 EDT Sodium Level 142 mmol/L Potassium Level 4.3 mmol/L Chloride Level 112 mmol/L Carbon Dioxide Level 27 mmol/L Anion Gap 7 LOW Glucose Level 129 mg/dL GA Blood Urea Nitrogen 24 mg/dL HI Creatinine [...] Radiology results: Radiology Results (Last 48 hours) [id number] -- 11/30/2018 16:15 CTA Head (11/30/2018 18:22) [...] Electronically signed by Victor Manuel [facility]cal[facility] Conversion Transportation Supervisor Cerner at 09/13/2022 4:29 PM CDT documented in this encounter Plan of Treatment Not on file documented as of this encounter Visit Diagnoses Not on filedocumented in this encounter
--- OUTSIDE RECORDS SUMMARY | 2024-12-07 22:14 | XMS_ITS | Clinical Summary ---
Author Organization [facility] Address [address] [place] [address] Care Team Providers Care Aeronautical Design Engineer Name Role Phone Oz Ramos MD Primary Care Provider [phone] John Joseph MD Unavailable [phone] Cheyenne Mitchell APRN, DEVI Unavailable [phone] Allergies Active Allergy Reactions Criticality Noted Date [...] Oral Daily, Held this AM, Reported on 12/07/2024 calcium acetate (Phoslo) 667 MG capsule Take [...] hr tabletIndicati ons:ESRD (end stage renal disease) ([facility]) TAKE 1 TABLET BY MOUTH DAILY BEFORE [...] (end stage renal disease) 08/13/2024 Kidney lesion, [place], left 06/24/2024 CORY (acute kidney injury) 05/28/2024 Encounters Date Type Department Care Team Description 12/07/2024 10:00 AM EDT Pre[place] Testing [place] [facility] [address], 1st [place] [address] 12/07/2024 Travel 11/26/2024 10:45 AM EDT - 11/26/2024 3:09 PM EDT Emergency [facility] Emergency Department [address] [place] [address] Benny Harris MD Houck, Jessica L, Hypotension due to blood loss (Primary Dx) Discharge Disposition: Home or Self Care 11/26/2024 10:00 AM EDT Office Visit [facility] Vascular Clinic [address] [place] [address] 5th [facility] Wing [address], [address] [place] [address] Carolee Gr MD ESRD (end stage renal disease) ([facility]) (Primary Dx) 11/26/2024 Travel 11/24/2024 Travel 11/19/2024 10:30 AM EDT Office Visit [facility] Otolaryngology [address] [place] [address] [place] [address] Yadiel Thornton MD Pharyngoesophageal dysphagia (Primary Dx); History of squamous cell carcinoma; History of radiation therapy; Dysphonia 11/19/2024 Travel 11/17/[address], [address] [place] [address] Carolee Gr MD 11/17/2024 Travel 11/11/2024 Telephone [facility] Multidisciplinary Oncology Clinic [address] [place] [address] Pascale Everett 11/10/2024 Orders Only [facility] Otolaryngology [address] [place] [address] 3rd [place] [address] Margot Constantino History of radiation therapy (Primary Dx); History of squamous cell carcinoma; Dysphagia, unspecified type 11/07/2024 Refill [facility] Vascular [place] [address] Floor [address], [address] [place] [address] Carolee Gr MD ESRD (end stage renal disease) ([facility]) (Primary Dx) 11/06/2024 3:14 PM EDT - 11/06/2024 11:59 PM EDT Hospital Encounter [facility] H Radiology [address] [place] [address] Socorro Cameron MS CCC-ACCOUNT PROCESSOR Dysphagia, oropharyngeal (Primary Dx); Dysphagia, unspecified type Discharge Disposition: Home or Self Care 11/06/2024 Travel 10/30/2024 10:50 AM EDT Office Visit [facility] Medicine Specialties [address] 2nd [place] [address] Essence Nayak PA Pharyngeal dysphagia (Primary Dx) 10/30/2024 Travel 10/28/2024 Travel 10/26/2024 Telephone [facility] Comprehensive Vascular Clinic [address] 5th Floor [address], [address] [place] [address] Carolee Gr MD 10/23/2024 Telephone [facility] Ot[facility]ology [address], 3rd [place] [address] Rashmi Paige 10/22/2024 10:40 AM EDT Office Visit [facility] Comprehensive Vascular Clinic [address] 5th Floor [address], [address] [place] [address] Carolee Gr MD ESRD (end stage renal disease) ([facility]) 10/22/2024 8:34 AM EDT - 10/22/2024 11:59 PM EDT Hospital Encounter [facility] V[facility] Lab [address] 5th Floor [address] [place] [address] ESRD (end stage renal disease) ([facility]) Discharge Disposition: Home or Self Care 10/22/2024 Travel 10/16/2024 Travel 10/13/2024 Orders Only [facility] Otol[facility]ology [address], 3rd [place] [address] Margot Morris Dysphagia, unspecified type (Primary Dx) 10/12/2024 11:59 AM EDT - 10/12/2024 11:59 PM EDT Hospital Encounter [facility] Ultrasound [address], [address]nd [place] [address] Left renal mass Discharge Disposition: Home or Self Care 10/12/2024 Results Follow-Up [facility] Urology [address], 2nd [place] [address] Ruben Ramsay MD 10/12/2024 Travel 10/09/2024 Travel 10/07/2024 1:34 PM EDT Anesthesia Event [facility] Advanced Surgery [address] [place] [address] Casie Baker MD Perry, Joseph D 10/07/2024 1:15 PM EDT - 10/07/2024 2:15 PM EDT Surgery [facility] G [facility] Advanced Surgery [address] [place] [address] Yadiel Thornton MD SUSPENSION MICROLARYNGOSCOPY WITH LYSIS OF WEB, FLEXIBLE ESOPHAGOSCOPY WITH BALLOON DILATION 10/07/2024 11:21 AM EDT - 10/07/2024 1:10 PM EDT Hospital Encounter [facility] Advanced Surgery [address] [place] [address] Yadiel Thornton MD Dysphagia, unspecified type Discharge Disposition: Home or Self Care 10/07/2024 Travel 09/28/2024 Telephone Vascular Surgery [address] [place] [address] Ariel Gonzalez, RN 09/28/2024 Telephone [facility] Otolaryngology [address], 3rd [place] [address] Rashmi Paige 09/25/2024 11:00 AM EDT Pre-Admission Testing [facility] Pre-op Clinic [address], 1st [place] [address] 09/25/2024 Travel 09/24/2024 1:40 PM EDT Consult [facility] Otolaryngology [address], 3rd [place] [address] Yadiel Thornton MD Dysphonia (Primary Dx); Dysphagia, unspecified; History of squamous cell carcinoma; History of radiation therapy 09/24/2024 Travel 09/15/2024 Telephone Vascular Surgery [address] [place] [address] Ariel Gonzalez RN 09/11/2024 11:30 AM EDT Anesthesia Event [facility] A OPERATING ROOM [address] [place] [address] Myke Murphy MD Woo, Melissa W, CRNA, DNP 09/11/2024 11:20 AM EDT - 09/11/2024 1:50 PM EDT Surgery [facility] A OPERATING ROOM [address] [place] [phone] Carolee Gr MD CREATION, AV FISTULA, OR AV GRAFT INSERTION, UPPER EXTREMITY [00441 (CPT )] 09/11/2024 9:07 AM EDT - 09/11/2024 2:48 PM EDT Hospital Encounter [facility] A OPERATING ROOM [address] [place] [address] Carolee Gr MD ESRD (end stage renal disease) ([facility]) (Primary Dx) Discharge Disposition: Home or Self Care 09/11/2024 Travel 09/07/2024 Travel 09/07/2024 Refill [facility] [address] [facility] 5th Floor [address], [address] [place] [address] Carolee Gr MD from Last 3 Months Immunizations Immunization Administration [...] any time in the past 12 [facility], were you homeless or living in a long term (including now)? No 06/19/2024 AUDIT-C Answer Date Recorded Frequency of Alcohol Consumption Not on file 11/26/2024 Q2: How many drinks containi ng alcohol do you have on a typical day when you are drinking? Patient does not drink Frequency of Binge Drinking Not on file 070 07/2024 CAGE ASSESSMENT Answer Date Recorded Cage [...] drink first t jeff in the morning (EYE-DAM WORKER) to steady your nerves or to get [...] EDT Inhaled Oxygen Concentration - - Weight 58.1 kg (128 lb) 12/07/2024 4:15 PM EDT Height 180.3 cm (5' 11 ) 11/26/2024 10:50 AM EDT Body Mass Index 17.85 11/26/2024 10:50 AM EDT Plan of Treatment Upcoming Encounters Date Type Department Care Team (Latest Contact Info) Description 12/25/2024 7:30 AM EDT Hospital Encounter [facility] A OPERATING ROOM [address] [place] [phone] Carolee Gr MD [address] [facility] [address] [place] [address] 12/25/2024 7:30 AM EDT Anesthesia Event [facility] A OPERATING ROOM [address] [place] [address] Sun Dean PA [address] [facility] [address] [place] [address] 12/25/2024 7:30 AM EDT - 12/25/2024 10:00 AM EDT Surgery [facility] A OPERATING ROOM [address] [place] [address] Carolee Gr MD [address] [facility] [address] [place] [address] REVISION, AV FISTULA, UPPER EXTREMITY [23726 (CPT )] 05/03/2025 8:[address] [facility] Ultrasound [address]nd [place] [address] 2025 1:00 PM EST [facility] Ot[facility] [address], 3rd [place] [address] Yadiel Thornton MD [address] [facility] [address] [place] [address] 05/13/2025 8:10 AM EST Office Visit [facility] Urology [address], 2nd [place] [address] Cheyenne Mitchell, TICKET COLLECTOR OR USHER, DNP [address] [facility] [address] [place] [address] Scheduled Procedures Name Priority Associated Diagnoses Date/Ti me REVISION, AV FISTULA OR GRAFT, UPPER EXTREMITY ESRD (end stage renal disease) ([facility]) 12/25/2024 7:30 AM EDT Health Maintenance Due Date Last Done Comments [facility]-Medicare Annual Wellness (AWV) 1940 [facility]-/Child/Adol SDOH Screenings 1940 Diabetes: Dental Exam 1952 [facility]-DTaP,Tdap,and Td Vaccines (1 - Tdap) 1961 [facility]-Zoster Vaccines (1 of 2) 1961 [facility]-RSV Vaccine: 60+ Years or (1 - 1-dose 75+ series) 2017 [id number] Vaccine (5 - 2023- season) 2024 09/06/2021, 02/01/2021, 08/03/2020, Additional history exists [facility]-Pneumococcal Vaccine: 50+ Years (2 of 2 - PPSV23) 03/03/2024 01/07/2024 [facility]-Diabetes: Hemoglobin A1C 11/25/2024 05/28/2024 [facility]- SDOH Screenings 12/17/2024 [facility]-Adult SDOH Screenings 12/17/2024 06/19/2024 [facility]-Influenza Vaccine (#1) 2025 03/26/2023, [facility]-Depression Screening 10/30/2025 025, 10/30/2024, 09/18/2021 HPV [...] on patient's age to complete this topic Goals Goal Patient Goal Type Associated Problems Recent Progress Patient-Stated? Author Autogenera kp Goal Care Plan Autogenerated Problem No Purnima Calhoun Procedures Procedure Name Priority Date/Time Associated Diagnosis Comments TRANSFUSE RED BLOOD CELLS STAT 11/26/2024 12:12 PM EDT XR CHEST 1 VIEW STAT 11/26/2024 11:29 AM EDT PREPARE RBC STAT 11/26/2024 11:20 AM EDT ECG ADULT STAT 11/26/2024 11:17 AM EDT TYPE AND SCREEN STAT 11/26/2024 11:08 AM EDT BLOOD GAS PANEL, VENOUS STAT 11/26/2024 11:08 AM EDT PHOSPHORUS, PLASMA STAT 11/26/2024 11 :08 AM EDT MAGNESIUM, PLASMA STAT 11/26/2024 11: 08 AM EDT APTT STAT 11/26/2024 11:08 AM EDT PROTHROMBIN TIME(PT) / INR STAT 11/26/2024 11:08 AM EDT CBC WITH AUTO DIFFERENTIAL STAT 11/26/2024 11:08 AM EDT COMPREHENSIVE METABOLIC PANEL, PLASMA STAT 11/26/2024 11:08 AM EDT POCT GLUCOSE METER UNSOLICITED RESULTS Routine 11/26/2024 10:54 AM EDT FL MODIFIED BARIUM SWALLOW Routine 11/06/2024 4:03 PM EDT Dysphagia, unspecified type VAS US HEMODIALYSIS ACCESS DUPLEX Routine 10/22/2024 9:42 AM EDT ESRD (end stage renal disease) ([facility]) US RENAL COMPLETE Routine 10/12/2024 12: 37 PM EDT Left renal mass POCT GLUCOSE METER UNSOLICITED RESULTS Routine 10/07/2024 2:39 PM EDT SURGICAL PATHOLOGY EXAM Routine 10/07/2024 2:23 PM EDT Dysphagia, unspecified type PB ANESTHESIA PLACEHOLDER Routine 10/07/2024 1:57 PM EDT TN AN ELECTIVE ENDOTRACHEAL AIRWAY Routine 10/07/2024 1:57 PM EDT LARYNGOSCOPY 10/07/2024 1:24 PM EDT Dysphagia, unspecified type DILATION, ESOPHAGUS 10/07/2024 1 :24 PM EDT Dysphagia, unspecified type BLOOD GAS PANEL, VENOUS STAT 10/07/2024 12:49 PM EDT POCT GLUCOSE METER UNSOLICITED RESULTS Routine 10/07/2024 12:33 PM EDT PB ANESTHESIA PLACEHOLDER Routine 09/11/2024 11:42 AM EDT TN AN ELECTIVE ENDOTRACHEAL AIRWAY Routine 09/11/2024 11:42 AM EDT TN CREAT AV FISTULA,AUTOGENOUS GRAFT 09/11/2024 11:16 AM EDT ESRD (end stage renal disease) ([facility]) PB POINT OF CARE IMAGING PLACEHOLDER Routine 09/11/2024 11:15 AM EDT BLOOD GAS PANEL, VENOUS STAT 09/11/2024 10:50 AM EDT HEMOGLOBIN A1C Add-On 05/28/2024 7:49 PM EST from Last 3 Months or Most Recently Relevant to Health Maintenance Results * Transfuse RBC (11/26/2024 1:22 PM EDT) us Teetee Mooney APRN BLOOD TRANSFUSION ORDERABL ES Final Result * [...] Juan Trent MD on 11/26/2024 1:39 PM Teetee Mooney APRN IMG XR PROCEDURES Final Re sult * Prepare Leukocyte Reduced RBC: 1 Units (11/26/2024 11:20 AM EDT) Product Code [id number] BLOO D BANK Dispense Status Transfused BLOOD BANK Blood Expiration Date [id number] BLOOD BANK Unit Number [id number] B LOOD BANK Product Blood Type 9500 BLOOD BANK Blood Type O- BLOOD BANK Crossmatch Compatible BLOOD BANK Other us Teetee Mooney APRN BLOOD BANK PRODUCT ORDERAB LES Final Result BLOOD BANK [address] [place] [address], * EKG now - STAT (adult) (11/26/2024 11:17 AM EDT) EKG DIAGNOSIS CLASS Borderline Normal MUSE ECG Ventricular Rate 54 BPM MUSE ECG Atrial Rate 54 BPM MUSE ECG TN Interval 178 ms MUSE ECG QRSD Interval 70 ms MUSE ECG QT Interval 440 ms MUSE ECG QTC Interval 417 ms MUSE ECG P [place] 38 degrees MUSE ECG R [place] 20 degrees MUSE ECG T Wave [place] -19 degrees MUSE ECG Diagnosis Sinus bradycardia with premature atrial complexes MUSE ECG Diagnosis Otherwise normal ECG MUSE ECG Diagnosis MUSE ECG Diagnosis Confirmed by Rahul Sexton ([id number]) on 11/26/2024 4:11:09 PM MUSE ECG 11/26/2024 11:1 7 AM EDT 11/26/2024 4:11 PM EDT Teetee Mooney APRN ECG ORDERABLES Final Resu lt MUSE ECG * (ABNORMAL) APTT (11/26/2024 11:08 AM EDT) Pathologist [facility] aPTT 36(H) 25 - 35 sec 11/26/2024 11:27 AM EDT [facility] Blood Venous blood specimen / Unknown Venipuncture / Unknown 11/26/2024 11:08 AM EDT 11/26/2024 11:11 AM EDT Teetee Mooney APRN LAB BLOOD ORDERABLES Final Result [facility] [address] [place] [address] * PT-INR (11/26/2024 11:08 AM EDT) Prothrombin Time 13.8 12.0 - 14.3 sec 11/26/2024 11:26 AM EDT [facility] INR 1.1 0.9 - 1.1 11/26/2024 11:26 AM EDT [facility] Blood Venous blood specimen / Unknown Venipuncture / Unknown 11/26/2024 11:08 AM EDT 11/26/2024 11:11 AM EDT Narrative [facility] - 11/26/2024 11:26 AM EDT OPTIMAL INR RANGES FOR PATIENT ON ORAL ANTICOAGULANT THERAPY Prevention of venous thromboembolism INR 2.0 to 3.0 In patients with heart disease: Atrial fibrillation INR 2.0 to 3.0 Valvular heart disease INR 2.0 to 3.0 Tissue heart valves INR 2.0 to 3.0 Mechanical prosthetic valves INR 2.5 to 3.5 Prevention of recurrent IA INR 2.5 to 3.5 us Teetee Mooney APRN LAB BLOOD ORDERABLES Final Result [facility] [address] [place] [address] * (ABNORMAL) CBC w/diff (11/26/2024 11:08 AM EDT) WBC Count 7.22 3.70 - 10.30 10*3/uL LAB HEMATOLOGY METHOD 11/26/2024 11:16 AM EDT [facility] RBC Count 2.52(L) 4.60 - 6.10 10*6/uL LAB HEMATOLOGY METHOD 11/26/2024 11:16 AM EDT [facility] HGB 7.5(L) 13.7 - 17.5 g/dL LAB HEMATOLOGY METHOD 11/26/2024 11:16 AM EDT [facility] HCT 24.9(L) 40.0 - 51.0 % LAB HEMATOLOGY METHOD 11/26/2024 11:16 AM EDT [facility] Platelet Count 169 155 - 369 10*3/uL LAB HEMATOLOGY METHOD 11/26/2024 11:16 AM EDT [facility] MCV 99(H) 79 - 98 fL LAB HEMATOLOGY METHOD 11/26/2024 11:16 AM EDT [facility] MCH 29.8 26.0 - 32.0 pg LAB HEMATOLOGY METHOD 11/26/2024 11:16 AM EDT [facility] MCHC 30.1(L) 30.7 - 35.5 g/dL LAB HEMATOLOGY METHOD 11/26/2024 11:16 AM EDT [facility] RDW 18.1(H) 11.5 - 14.5 % LAB HEMATOLOGY METHOD 11/26/2024 11:16 AM EDT [facility] MPV 10.3 8.8 - 12.5 fL LAB HEMATOLOGY METHOD 11/26/2024 11:16 AM EDT [facility] nRBC 0.0 <=0.0 per 100 WBCs LAB HEMATOLOGY METHOD 11/26/2024 11:16 AM EDT [facility] Differential Type Automated LAB HEMATOLOGY METHOD 11/26/2024 11:16 AM EDT [facility] Neutrophils % 73 % LAB HEMATOLOGY METHOD 11/26/2024 11:16 AM EDT [facility] Lymphocytes % 18 % LAB HEMATOLOGY METHOD 11/26/2024 11:16 AM EDT [facility] Monocytes % 7 % LAB HEMATOLOGY METHOD 11/26/2024 11:16 AM EDT [facility] Eosinophils % 2 % LAB HEMATOLOGY METHOD 11/26/2024 11:16 AM EDT [facility] Basophils % 0 % LAB HEMATOLOGY METHOD 11/26/2024 11:16 AM EDT [facility] Immature Granulocytes % 0 % LAB HEMATOLOGY METHOD 11/26/2024 11:16 AM EDT [facility] Neutrophils Absolute 5.14 1.60 - 6.10 10*3/uL LAB HEMATOLOGY METHOD 11/26/2024 11:16 AM EDT [facility] Lymphocytes Absolute 1.33 1.20 - 3.90 10*3/uL LAB HEMATOLOGY METHOD 11/26/2024 11:16 AM EDT [facility] Monocytes Absolute 0.52 0.30 - 0.90 10*3/uL LAB HEMATOLOGY METHOD 11/26/2024 11:16 AM EDT [facility] Eosinophils Absolute 0.17 0.00 - 0.50 10*3/uL LAB HEMATOLOGY METHOD 11/26/2024 11:16 AM EDT [facility] Basophils Absolute 0.03 0.00 - 0.10 10*3/uL LAB HEMATOLOGY METHOD 11/26/2024 11:16 AM EDT [facility] Immature Granulocytes Absolute 0.03 0.00 - 0.06 10*3/uL LAB HEMATOLOGY METHOD 11/26/2024 11:16 AM EDT [facility] Blood Venous blood specimen / Unknown Venipuncture / Unknown 11/26/2024 11:08 AM EDT 11/26/2024 11:10 AM EDT Narrative [facility] - 11/26/2024 11:16 AM EDT Therapeutic decision making should be based on absolute values, rather than percentages. Teetee E Vinicio TICKET COLLECTOR OR USHER LAB BLOOD ORDERABLES Final Result Performing Organization Address City/[facility]/ZIP Co de Phone Number [facility] [address] [place] [address] * Type and screen (11/26/2024 11:08 AM EDT) ABO/Rh O Positive 11/26/2024 11:00 AM EDT BLOOD BANK Antibody Screen Negative 11/26/2024 11:00 AM EDT BLOOD BANK Specimen Expiration 11/29/2024 23:59 11/26/2024 11:00 AM EDT BLOOD BANK Blood Venous blood specimen / Unknown Venipuncture / Unknown 11/26/2024 11:08 AM EDT 11/26/2024 11:17 AM EDT Teetee Mooney TICKET COLLECTOR OR USHER LAB BLOOD BANK TEST ORDERA BLES Final Result Performing Organization Address [facility]/ZIP Co de Phone Number BLOOD BANK [address] [place] [address], [place] * Phosphorus (11/26/2024 11:08 AM EDT) Phosphorus, Plasma 3.7 2.5 - 4.5 mg/dL 11/26/2024 11:32 AM EDT [facility] Blood Venous blood specimen / Unknown Venipuncture / Unknown 11/26/2024 11:08 AM EDT 11/26/2024 11:11 AM EDT Teetee Mooney TICKET COLLECTOR OR USHER LAB BLOOD ORDERABLES Final Result Performing Organization Address City/[facility]/ZIP Co de Phone Number [facility] [address] [place] [address] * (ABNORMAL) Magnesium (11/26/2024 11:08 AM EDT) Magnesium, Plasma 1.7(L) 1.9 - 2.4 mg/dL 11/26/2024 11:32 AM EDT [facility] Blood Venous blood specimen / Unknown Venipuncture / Unknown 11/26/2024 11:08 AM EDT 11/26/2024 11:11 AM EDT us Teetee Mooney ELIZABETH LAB BLOOD ORDERABLES Final Result [facility] [address] [place] [address] * (ABNORMAL) Blood gas panel, venous (11/26/2024 11:08 AM EDT) Only the most recent of3 resultswithin the time period is included. pH, Venous 7.39 7.32 - 7.43 LAB HEMATOLOGY METHOD 11/26/2024 11:14 AM EDT [facility] pCO2, Venous 48 40 - 55 mmHg LAB HEMATOLOGY METHOD 11/26/2024 11:14 AM EDT [facility] pO2, Venous 46(H) 25 - 40 mmHg LAB HEMATOLOGY METHOD 11/26/2024 11:14 AM EDT [facility] SO2, Measured, Venous 81(H) 65 - 80 % LAB HEMATOLOGY METHOD 11/26/2024 11:14 AM EDT [facility] Base Excess, Venous 3.3(H) -2.0 - 3.0 mmol/L LAB HEMATOLOGY METHOD 11/26/2024 11:14 AM EDT [facility] Bicarbonate, Calculated, Venous 29(H) 22 - 26 mmol/L LAB HEMATOLOGY METHOD 11/26/2024 11:14 AM EDT [facility] Hematocrit, Whole Blood 23.2(L) 40.0 - 51.0 % LAB HEMATOLOGY METHOD 11/26/2024 11:14 AM EDT [facility] Sodium, Whole Blood 143 136 - 145 mmol/L LAB HEMATOLOGY METHOD 11/26/2024 11:14 AM EDT [facility] Potassium, Whole Blood 3.9 3.6 - 4.9 mmol/L LAB HEMATOLOGY METHOD 11/26/2024 11:14 AM EDT [facility] Chloride, Whole Blood 103 97 - 107 mmol/L LAB HEMATOLOGY METHOD 11/26/2024 11:14 AM EDT [facility] Glucose, Whole Blood 178(H) 74 - 99 mg/dL LAB HEMATOLOGY METHOD 11/26/2024 11:14 AM EDT [facility] Lactate, Venous, Whole Blood 0.8 0.5 - 2.2 mmol/L LAB HEMATOLOGY METHOD 11/26/2024 11:14 AM EDT [facility] Ionized Calcium, Whole Blood 4.3(L) 4.6 - 5.1 mg/dL LAB HEMATOLOGY METHOD 11/26/2024 11:14 AM EDT [facility] Blood Venous blood specimen / Unknown Venipuncture / Unknown 11/26/2024 11:08 AM EDT 11/26/2024 11:10 AM EDT us Teetee Mooney APRN LAB BLOOD ORDERABLES Final Result [facility] [address] [place] [address] * (ABNORMAL) CMP (11/26/2024 11:08 AM EDT) Glucose, Plasma 178(H) 74 - 99 mg/dL 11/26/2024 11:32 AM EDT [facility] BUN, Plasma 36(H) 8 - 23 mg/dL 11/26/2024 11:32 AM EDT [facility] Creatinine, Plasma 6.06(H) 0.70 - 1.20 mg/dL 11/26/2024 11:32 AM EDT [facility] BUN/Creatinine Ratio 6 11/26/2024 11:32 AM EDT [facility] Sodium, Plasma 141 136 - 145 mmol/L 11/26/2024 11:32 AM EDT [facility] Potassium, Plasma 4.1 3.6 - 4.9 mmol/L 11/26/2024 11:32 AM EDT [facility] Chloride, Plasma 102 97 - 107 mmol/L 11/26/2024 11:32 AM EDT [facility] CO2, Plasma 25 22 - 29 mmol/L 11/26/2024 11:32 AM EDT [facility] Anion Gap 14 6 - 16 mmol/L 11/26/2024 11:32 AM EDT [facility] Total Calcium, Plasma 8.3(L) 8.9 - 10.2 mg/dL 11/26/2024 11:32 AM EDT [facility] Total Protein 5.8(L) 6.3 - 7.9 g/dL 11/26/2024 11:32 AM EDT [facility] Albumin, Plasma 3.1(L) 3.5 - 5.2 g/dL 11/26/2024 11:32 AM EDT [facility] AST, Plasma 14 10 - 50 U/L 11/26/2024 11:32 AM EDT [facility] ALT, Plasma 13 10 - 50 U/L 11/26/2024 11:32 AM EDT [facility] Alkaline Phosphatase, Plasma 55 40 - 115 U/L 11/26/2024 11:32 AM EDT [facility] Total Bilirubin, Plasma 0.2 0.2 - 1.1 mg/dL 11/26/2024 11:32 AM EDT [facility] eGFRcr 8.6 mL/min/1.7 3m*2 11/26/2024 11:32 AM EDT [facility] Comment:Reported eGFRcr in m L/min/1.73m2 is based the CKD-EPI 2020 equation that does not use a race coefficient. Blood Venous blood specimen / Unknown Venipuncture / Unknown 11/26/2024 11:08 AM EDT 11/26/2024 11:11 AM EDT us Teetee Mooney APRN LAB BLOOD ORDERABLES Final Result [facility] [address] [place] [address] * (ABNORMAL) POCT glucose meter (11/26/2024 10:54 AM EDT) Only the most recent of3 resultswithin the time period is included. POCT Glucose 164(H) 74 - 99 mg/dL 11/26/2024 10:57 AM EDT [facility] Comment:Accuracy of a glucos e result [...] Comment 11/26/2024 10:57 AM EDT [facility] Metal Window Frame Maker ID Ekaterina Miller 10:57 AM EDT [facility] Device ID [id number] 11/26/2024 10:57 AM EDT [facility] Specimen Type POC Capillary 11/26/2024 10:57 AM EDT [facility] Blood Capillary blood specimen / Unknown 11/26/2024 10:54 AM EDT 11/26/2024 10:57 AM EDT us Generic Provider [facility] POINT OF CARE TEST DOCKED DEVICE UNSOLICITED RESULTS Final Result Performing Organization Address City/State/[facility] Co de Phone Number [facility] [address] [place] [address] * [place] Modified Barium Swallow (11/06/2024 4:03 [...] varying consistencies. Fluoroscopy Time: 2.9 minutes. COMPARISON: [facility] [place], 06/01/2024. Chest CT 05/28/2024. [...] varying consistencies. Fluoroscopy Time: 2.9 minutes. COMPARISON: [facility] [place], 06/01/2024. Chest CT 05/28/2024. [...] MD on 10/23/2024 4:30 PM us Carolee M Simón MD CV VASCULAR PROCEDURES Final Re sult [...] 10/12/2024 1:47 PM us Ruben Ramsay MD IM US PROCEDURES Final Result * Surgical Pathology Exam (10/07/2024 2:23 PM EDT) Case Report Surgical Pathology Case: [id number] Authorizing Provider: Yadiel Thornton MD Collected: 10/07/2024 1423 Ordering Location: [facility] Received: 10/07/2024 1625 Surgery Pathologist: Katina Funez MD Specimen: Larynx, post crycoid mucosa 10/09/2024 2:56 PM EDT [facility] Final Diagnosis A. POST CRYCOID MUCOSA, BIOPSY: - BENIGN SQUAMOUS EPITHELIUM WITH SUBEPITHELIAL EDEMA AND MILD CHRONIC INFLAMMATION 10/09/2024 2:56 PM EDT [facility] at 1456 EDT Clinical Information Dysphagia, unspecified type [R13.10] 10/09/2024 2:56 PM EDT [facility] Gross Description A. POST CRYCOID MUCOSA Received in formalin labeled p ost cricoid mucosa , is 1 pink-chapman soft tissue fragment measuring 0.7 cm in greatest dimension. Entirely submitted in cassette A1. Cold Time: <1m Michelle Eleazar Pettey 10/09/2024 2:56 PM EDT [facility] Note: A resident was involved in the service. I attest I examined the relevant preparations for the specimens and confirmed the diagnosis or interpretation. 10/09/2024 2:56 PM EDT [facility] Tissue Laryngeal structure / Unknown 10/07/2024 2:23 PM EDT 10/07/2024 4:25 PM EDT Comment:Pre-op diagnosis: Dysphagia, unspecified type [R13.10] us Yadiel Thornton MD LAB PATHOLOGY ORDERABLES Final R esult [facility] [address] [place] [address] * [place] AN ELECTIVE ENDOTRACHEAL AIRWAY, PB ANESTHESIA PLACEHOLDER [...] type: endotracheal airway Successful airway: ETT and SAP ENTERPRISE PORTAL CONSULTANT Cuffed: yes Successful intubation technique: video laryngoscopy [...] Ultimately able to pass Bougie and 6.0 SAP ENTERPRISE PORTAL CONSULTANT tube passed over. Dentition in preoperative condition. us Casie Baker MD ANESTHESIA ORDERABLES Final R esult * [place] AN ELECTIVE ENDOTRACHEAL AIRWAY, PB ANESTHESIA PLACEHOLDER (09/11/2024 11:42 AM EDT) Narrative Brooke Adorno CRNA, DNP - 09/11/2024 11:42 AM EDT Brooke Adorno CRNA, DNP 09/11/2024 11:59 AM Airway Date/Time: 09/11/2024 11:42 AM Reason: elective Airway not difficult General Information and Staff Patient location during procedure: OR CURRICULUM MANAGER: Brooke Adorno CRNA, DNP Performed: CURRICULUM MANAGER Patient Condition Indications for airway management: anesthesia [...] monitoring: continuous pulse ox, heart rate and orthotic practitioner Block type: supraclavicular Laterality: left Injection technique: [...] 6.4(H) <5.7 % 05/29/2024 5:06 AM EST [facility] Blood Venous blood specimen / Unknown Venipuncture / Unknown 05/28/2024 7:49 PM EST 05/28/2024 7:55 PM EST Narrative [facility] - 05/29/2024 5:06 AM EST HA1C Interpretive Data: Diagnosis of Diabetes: Diabetic > or = 6.5% Pre-diabetic 5.7 to 6.4% Non-diabetic < or = 5.6% Glycemic Targets for Type I and Type II Diabetics: Non- Adults <7.0% Adults <6.0% Children and Adolescents <7.5% Source: [place] [employer]. Standards of medical care in diabetes,2017. Diabetes Care.2017:40 (suppl 1):S1-S135. HbA1c assay performed by an ion-exchange chromatography method that is certified traceable to the DCCT. us Teetee Palacio MD LAB BLOOD ORDERABLES Final Result [facility] [address] [place] [address] from Last 3 Months or Most Recently Relevant to Health Maintenance Additional Health Concerns Active Problems Noted Date Diagnosed Date Autogenerated Problem 11/26/2024 [place] [address] [facility] Advance Directives * Full Code (Latest Code Status on File) Date Activated Date Inactivated Comments 06/18/2024 10:59 PM 06/24/2024 6:54 PM Question Answer Comments Patient has decision-making capacity? Yes * Full Code Date Activated Date Inactivated Comments 05/28/2024 11:11 PM 06/04/2024 9:30 PM Question Answer Comments Patient has decision-making capacity? Yes Care Teams Aeronautical Design Engineer Relationship Specialty Start Date End Date Oz Ramos MD [address] [facility] [address] [place] [address] PCP - General 10/07/20 John Joseph MD [address] [facility] [address] [place] [id number] Consulting Physician Urology 02/04/23 Cheyenne Mitchell, ELIZABETH, DNP [address] [phone] Nurse Practitioner Urology 05/13/24
--- OUTSIDE RECORDS SUMMARY | 2024-12-07 22:14 | XMS_ITS | Encounter Summary ---
Author Organization [employer] ([place], [place], [place], [place]) Address [address] [place] [address] Care Team Providers Care Bulb Weeder Name Role Phone Unavailable Primary Care Provider Unavailabl e Encounter Details Date Type Department Care Team (Late st Contact Info) Description 11/28/[address] [facility] [place] Medicine [facility] [place] [address] ProviderBrianne MD [address] [place], [place] [id number] Social History Tobacco Use Types Packs/Day Years [...] Source : Measured Height Entry Format : [place] Height, Feet : 5 ft(Converted to: 152 cm, 60 Inch) Height, Inches : 11 Inch(Converted to: 0 ft 11 Inch, 27.94 cm) Clinical Height : 180.34 cm Weight Source : Standing scale Weight Entry Format : [place] Clinical Dosing Weight : 68.18 kg Weight, Pounds : 150 lb Body Surface Area (BSA) : 1.87 m2 Body Mass Index : 21 kg/m2 Hay Body Weight : 74 kg MARICRUZ RODRIGUEZ [...] : jaycob Emergency Contact #1 Relationship : [phone] Emergency Contact #2 : none Emergency Contact #2 Phone Number : none Emergency Contact #2 Relationship : none Primary Language : Spanish Communication Barrier : None MARICRUZ RODRIGUEZ RN [...] Scale Risk Level : 0-24 Low Risk Willet Fall Interventions : Adequate lighting, Assistive devices [...] Electronically signed by Victor Manuel Alcala Conversion Ambulatory Care Coordinator Cerner at 09/14/2022 12:20 PM CDT documented in this encounter Plan of Treatment Not on file documented as of this encounter Visit Diagnoses Not on filedocumented in this encounter
--- OUTSIDE RECORDS SUMMARY | 2024-12-07 22:15 | XMS_ITS | Encounter Summary ---
Author Organization [employer] ([place], [place], [place], [place]) Address [address] [place] [address] Care Team Providers Care Juvenile Detention Officer Name Role Phone Unavailable Primary Care Provider Unavailabl e Encounter Details Date Type Department Care Team (Late st Contact Info) Description 01/07/2019 Transcribed Document [facility] [place] Family Medicine [facility] [place] [address] ProviderBrianne MD [address] [place], [place] [phone] Social History Tobacco Use Types Packs/Day Years [...] 01/07/2019 6:28 EDT Electronically signed by Cari [facility] Conversion Wicker Worker Cerner at 09/14/2022 12:15 PM CDT documented in this encounter Plan of Treatment Not on file documented as of this encounter Visit Diagnoses Not on filedocumented in this encounter
--- OUTSIDE RECORDS SUMMARY | 2024-12-07 22:15 | XMS_ITS | Encounter Summary ---
Author Organization [employer] ([place], [place], [place], [place]) Address [address] [place] [address] Care Team Providers Care Mattress Stuffer Name Role Phone Unavailable Primary Care Provider Unavailabl e Encounter Details Date Type Department Care Team (Late st Contact Info) Description 01/12/2019 Transcribed Document [facility] [place] [facility] [place] [address] ProviderBrianne MD [facility] [place], [place] [id number] Social History Tobacco Use Types Packs/Day Years [...] History : First call Phone Number : [phone] Contact Relationship to Patient : Adult child [...] 01/12/2019 11:20 EDT Electronically signed by Cari [facility] Conversion Clothes Separator Cerner at 09/14/2022 12:17 PM CDT documented in this encounter Plan of Treatment Not on file documented as of this encounter Visit Diagnoses Not on filedocumented in this encounter
--- OUTSIDE RECORDS SUMMARY | 2024-12-07 22:15 | XMS_ITS | Encounter Summary ---
Author Organization [employer] ([place], [place], [place], [place]) Address [address] [place] [address] Care Team Providers Care Lap Checker Name Role Phone Unavailable Primary Care Provider Unavailabl e Encounter Details Date Type Department Care Team (Late st Contact Info) Description 12/01/2018 Transcribed Document [facility] [place] Medicine [address] [place] [address] ProviderBrianne MD [address] [place], [place] [phone] Social History Tobacco Use Types Packs/Day Years [...] On: 12/01/2018 4:37 EDT by Purnima Luis [facility] Coord Phone Call for Consults Consult Phone Call/Page Attempt : First call Consult, Additional Information : duplicate Purnima Luis [facility] Unit Coord - 12/01/2018 8:34 EDT documented in this encounter Plan of Treatment Not on file documented as of this encounter Visit Diagnoses Not on filedocumented in this encounter
--- OUTSIDE RECORDS SUMMARY | 2024-12-07 22:15 | XMS_ITS | Encounter Summary ---
Author Organization [employer] ([place], [place], [place], [place]) Address [address] [place] [address] Care Team Providers Care Monument Stonecutter Name Role Phone Unavailable Primary Care Provider Unavailabl e Encounter Details Date Type Department Care Team (Late st Contact Info) Description 01/08/2019 Transcribed Document [facility] [place] Family Medicine [facility] [place] [address] ProviderBrianne MD [address] [place] [phone] Social History Tobacco Use Types Packs/Day Years [...] of Dr. Mccullough or Dr. Shields, call [phone] If you are a patient of Dr. Alfonso, call [phone] Nurse Navigator: Ariana Mccallum Office: [phone]; ; available during regular business hours documented in this encounter Plan of Treatment Not on file documented as of this encounter Visit Diagnoses Not on filedocumented in this encounter
--- OUTSIDE RECORDS SUMMARY | 2024-12-07 22:15 | XMS_ITS | Encounter Summary ---
Author Organization [employer] ([place], [place], [place], [place]) Address [address] [place] [address] Care Team Providers Care Clinical Operations Manager Name Role Phone Unavailable Primary Care Provider Unavailabl e Encounter Details Date Type Department Care Team (Late st Contact Info) Description 01/07/2019 Transcribed Document [facility] [place] [facility] [place] [address] ProviderBrianne MD [address] [place], [place] [phone] Social History Tobacco Use Types Packs/Day Years [...] Electronically signed by Victor Manuel Alcala Conversion Shop And Alteration Tailor Cerner at 09/14/2022 12:13 PM CDT documented in this encounter Plan of Treatment Not on file documented as of this encounter Visit Diagnoses Not on filedocumented in this encounter
--- OUTSIDE RECORDS SUMMARY | 2024-12-07 22:15 | XMS_ITS | Encounter Summary ---
Author Organization [employer] ([place], [place], [place], [place]) Address [address] [place] [address] Care Team Providers Care Maritime Engineer Name Role Phone Unavailable Primary Care Provider Unavailabl e Encounter Details Date Type Department Care Team (Late st Contact Info) Description 12/01/2018 Transcribed Document [facility] [place] Family Medicine [facility] [place] [address] ProviderBrianne MD [address] [place], [place] [phone] Social History Tobacco Use Types Packs/Day Years [...]
--- OUTSIDE RECORDS SUMMARY | 2024-12-07 22:15 | XMS_ITS | Encounter Summary ---
Author Organization [employer] ([place], [place], [place], [place]) Address [address] [place] [address] Care Team Providers Care Brush Head Maker Name Role Phone Unavailable Primary Care Provider Unavailabl e Encounter Details Date Type Department Care Team (Late st Contact Info) Description 01/07/2019 Transcribed Document [facility] [place] [facility] [place] [address] ProviderBrianne MD [facility] [place], [place] [phone] Social History Tobacco Use Types Packs/Day Years [...] Joint Academy Date : 12/17/2018 EDT Joint Senior Security Architect Attended Academy : Yes Joint Senior Security Architect Name : daughterJulissa Type of Surgery : Anterior Hip Replacement, Right Does Patient Have a Walker? : No Walker/toilette Ordered for After Discharge : Yes Anticipated Discharge Plan : Home Health PT Anticipated Discharge Plan Comment : Patient plans to d/c home with the help of his daughter [facility]. Patient Completed RAPT Score : 7 RICK PULIDO Rn-Ortho Nurse Navigator - 01/07/2019 16:25 EDT Teaching/Learning Assessment Barriers To Learning : None evident Individuals Taught : Patient, Child Readiness to Learn : Cooperative Readiness to Learn : Demonstration, Explanation, Printed materials, Teach back method Education Comment : Incentive spirometry taught at [facility], patient verbalizes understanding, also via teach [...] Electronically signed by Victor Manuel Alcala Conversion Outboard System Operator Cerner at 09/14/2022 12:19 PM CDT documented in this encounter Plan of Treatment Not on file documented as of this encounter Visit Diagnoses Not on filedocumented in this encounter
--- OUTSIDE RECORDS SUMMARY | 2024-12-07 22:15 | XMS_ITS | Encounter Summary ---
Author Organization [employer] ([place], [place], [place], [place]) Address [address] [place] [address] Care Team Providers Care Pilot Plant Supervisor Name Role Phone Unavailable Primary Care Provider Unavailabl e Encounter Details Date Type Department Care Team (Late st Contact Info) Description 01/07/2019 Transcribed Document [facility] [place] Medicine [facility] [place] [address] ProviderBrianne MD [address] [place], [place] [phone] Social History Tobacco Use Types Packs/Day Years [...] Electronically signed by Victor Manuel Alcala Conversion Gravity Prospecting Supervisor Cerner at 09/14/2022 12:20 PM CDT documented in this encounter Plan of Treatment Not on file documented as of this encounter Visit Diagnoses Not on filedocumented in this encounter
--- OUTSIDE RECORDS SUMMARY | 2024-12-07 22:15 | XMS_ITS | Encounter Summary ---
Author Organization [employer] ([place], [place], [place], [place]) Address [address] [place] [address] Care Team Providers Care Disability Case Manager Name Role Phone Unavailable Primary Care Provider Unavailabl e Encounter Details Date Type Department Care Team (Late st Contact Info) Description 12/01/2018 Transcribed Document [facility] [place] [address] ProviderBrianne MD [address] [place], [place] [phone] Social History Tobacco Use Types Packs/Day Years [...] On: 12/01/2018 15:30 EDT by NAEL LAST, RN CARDIAC REHAB General Information Visit Type, RN CARDIAC REHAB : Initial evaluation Patient Orders : Speech Language Pathology Swallow Evaluation and Treatment -111 Start: 12/01/18 14:17:00 EDT, Routine, For Swallow Eval and Treat, Ischemic Stroke - RIVAS COBURN MD-KALINA Admission Date : Admission Date/Time: 11/30/18 19:19:00 Medical Chart Reviewed, RN CARDIAC REHAB : Yes Personal Devices : Personal Devices No Devices Recorded Assistive Devices : Assistive Devices No Devices Recorded Active Diagnoses : 11/30/2018 00:00 Altered mental status 11/30/2018 00:00 Disorientation, unspecified 11/30/2018 00:00 Other disorder of circulatory system Therapy Diagnosis, RN CARDIAC REHAB : Normal oral phase of the swallow. [...] : Regular/thin then made NPO. Intubation Comment, RN CARDIAC REHAB : n/a Vital Signs RTF : Vitals [...] 15:49 EDT General Status Patient Received Status, RN CARDIAC REHAB : Long sitting in bed Patient Left Status, RN CARDIAC REHAB : Long sitting in bed NAEL LAST [...] Oral Mechanism for Daily Living : Intact RN CARDIAC REHAB Cough : Strong Facial Appearance: : Asymmetrical, [...] - 12/01/2018 15:49 EDT Therapy Indication Assessment RN CARDIAC REHAB Indicated : No RN CARDIAC REHAB Not Indicated : At prior level of function NAEL LAST SLP - 12/01/2018 15:49 EDT Swallow Plan/Goals Treatment Frequency, RN CARDIAC REHAB : Other: No further ST Treatment Plan Est w/Pt/Caregvr, Swallow : Yes NAEL LAST SLP - 12/01/2018 15:49 EDT Education Barriers To Learning : Hearing deficit Individuals Taught : Patient, Child Readiness to Learn : Cooperative Readiness to Learn : Explanation NAEL LAST SLP - 12/01/2018 15:49 EDT RN CARDIAC REHAB Education Assessment Grid 1 Aspiration : Verbalizes understanding Diet Recommendation : Verbalizes understanding NAEL LAST, DIANA - 12/01/2018 15:49 EDT RN CARDIAC REHAB Education Assessment Grid 2 Treatment Plan : Verbalizes understanding NAEL LAST SLP - 12/01/2018 15:[address] [facility] RN CARDIAC REHAB Charges Evaluation Swallowing Function : 1 NAEL LAST SLP - 12/01/2018 15:49 EDT Electronically signed by Cari [facility] Conversion Sock Boarder Cerner at 09/13/2022 4:28 PM CDT documented in this encounter Plan of Treatment Not on file documented as of this encounter Visit Diagnoses Not on filedocumented in this encounter
--- OUTSIDE RECORDS SUMMARY | 2024-12-07 22:15 | XMS_ITS | Encounter Summary ---
Author Organization [employer] ([place], [place], [place], [place]) Address [address] [place] [address] Care Team Providers Care Flotation Tender Name Role Phone Unavailable Primary Care Provider Unavailabl e Encounter Details Date Type Department Care Team (Late st Contact Info) Description 12/01/2018 Transcribed Document [facility] [place] Family Medicine [facility] [place] [address] ProviderBrianne MD [address] [place], [place] [phone] Social History Tobacco Use Types Packs/Day Years [...] CORKY BELTRE, PT - 12/01/2018 14:47 EDT documented in this encounter Plan of Treatment Not on file documented as of this encounter Visit Diagnoses Not on filedocumented in this encounter
--- OUTSIDE RECORDS SUMMARY | 2024-12-07 22:15 | XMS_ITS | Encounter Summary ---
Author Organization [employer] ([place], [place], [place], [place]) Address [address] [place] [address] Care Team Providers Care Transmission Operator Name Role Phone Unavailable Primary Care Provider Unavailabl e Encounter Details Date Type Department Care Team (Late st Contact Info) Description 12/01/2018 Transcribed Document [facility] [place] [address] [place] [address] ProviderBrianne MD [address] [place], [place] [phone] Social History Tobacco Use Types Packs/Day Years [...]
--- OUTSIDE RECORDS SUMMARY | 2024-12-07 22:15 | XMS_ITS | Encounter Summary ---
Author Organization [employer] ([place], [place], [place], [place]) Address [address] [place] [address] Care Team Providers Care Junior Art Director Name Role Phone Unavailable Primary Care Provider Unavailabl e Encounter Details Date Type Department Care Team (Late st Contact Info) Description 01/07/2019 Transcribed Document [facility] [place] [facility] [address] ProviderBrianne MD [address] [place], [place] [phone] Social History Tobacco Use Types Packs/Day Years [...] Kim MD - 01/07/2019 7:55 AM CDT [facility] Main OR Preop Summary Primary Physician: JULIO RUSHING MD-ORT Finalized Date/Time: 01/07/19 10:09:51 Pt. Name: NADER TOLENTINO /Sex: 1940 Male Med Rec #: [id number] Physician: JULIO RUSHING MD-ORT Financial #: [id number] Pt. Type: I Room/Bed: ASA/1 Admit/Disch: 01/07/19 07:08:00 - Institution: [facility] PreOp Case Times Entry 1 In Preop 01/07/19 05:35:00 Ready for Holding n/a Room Patient Ready for 01/07/19 06:39:00 Surgery Patient Out of Preop 01/07/19 07:16:00 Patient Out of n/a Holding Room Last Modified By: Whit Lamb RN 01/07/19 10:09:50 [facility] PreOp Case Times Audit 01/07/19 10:09:50 Block Engraver: RUSTY Modifier: REISNERK <+> 1 Patient Out of Preop 01/07/19 06:39:14 Block Engraver: RUSTY Modifier: REISNERK <+> 1 Patient Ready for Surgery Finalized By: Whit Lamb, RN Document Signatures Signed By: Whit Lamb RN 01/07/19 10:09 Electronically signed by Cari [facility] Conversion Asset Management Coordinator Cerner at 09/14/2022 12:16 PM CDT documented in this encounter Plan of Treatment Not on file documented as of this encounter Visit Diagnoses Not on filedocumented in this encounter
--- OUTSIDE RECORDS SUMMARY | 2024-12-07 22:15 | XMS_ITS | Encounter Summary ---
Author Organization [employer] ([place], [place], [place], [place]) Address [address] [place] [address] Care Team Providers Care Watch Engine Operator Name Role Phone Unavailable Primary Care Provider Unavailabl e Encounter Details Date Type Department Care Team (Late st Contact Info) Description 01/07/2019 Transcribed Document [facility] [place] [facility] [address] ProviderBrianne MD [address] [place] [id number] Social History Tobacco Use Types Packs/Day Years [...] DAY RAJAN, PT - 01/07/2019 14:43 EDT Intermediate Accountant Goals Mobility/Bed Mobility LTG PT Grid Goal [...] DAY RAJAN PT - 01/07/2019 14:43 EDT [place] PT Charges Gait Training Each 15 Min : 1 PT Nedra Low Complexity : 1 DAY RAJAN PT - 01/07/2019 14:43 EDT documented in this encounter Plan of Treatment Not on file documented as of this encounter Visit Diagnoses Not on filedocumented in this encounter
--- OUTSIDE RECORDS SUMMARY | 2024-12-07 22:15 | XMS_ITS | Encounter Summary ---
Author Organization [employer] ([place], [place], [place], [place]) Address [address] [place] [address] Care Team Providers Care Factory Process Workers Name Role Phone Unavailable Primary Care Provider Unavailabl e Encounter Details Date Type Department Care Team (Late st Contact Info) Description 01/08/2019 Transcribed Document [facility] Radiology [address] [place] [id number] Agnieszka Live MD [address] [place] [address] Social History Tobacco Use Types Packs/Day [...] is a 78 yo male [address] [facility] per Dr. Mccullough for a right total [...] (Current Encounter/Past 24 Hours) WBC 10.4 K/uL [place] 01/08/2019 05:26 Hct 30.6 % [facility] 01/08/2019 05:26 Hgb 10.1 g/dL [facility] 01/08/2019 05:26 Platelet Count 158 K/uL [...] mg/dL 01/08/2019 05:49 Glucose Level 140 mg/dL [place] 01/08/2019 05:49 Calcium Level 8.8 mg/dL 01/08/2019 [...]
--- OUTSIDE RECORDS SUMMARY | 2024-12-07 22:15 | XMS_ITS | Encounter Summary ---
Author Organization [employer] ([place], [place], [place], [place]) Address [address] [place] [address] Care Team Providers Care Pie Dough Roller Name Role Phone Unavailable Primary Care Provider Unavailabl e Encounter Details Date Type Department Care Team (Late st Contact Info) Description 01/08/2019 Transcribed Document [facility] Radiology [address] [place] [id number] Urszula Mccullough MD [facility] [place] [address] Social History Tobacco Use Types Packs/Day Years [...] swelling Pending Labs In Process SENDOUT REPORT [id number], [id number], RT - Routine, 01/07/19 8:12:00 EDT Pathology Tissue Request [id number], [id number], 01/07/19 8:12:00 EDT, Collected, RT - Routine, 01/07/19 11:11:30 EDT, AMIE JUÁREZ, Histblaynech/Siftit tech, Specimen Type: AP Specimen, Specimen Desc: [...]
--- OUTSIDE RECORDS SUMMARY | 2024-12-07 22:15 | XMS_ITS | Encounter Summary ---
Author Organization [employer] ([place], [place], [place], [place]) Address [address] [place] [address] Care Team Providers Care Dairy Husbandry Teacher Name Role Phone Unavailable Primary Care Provider Unavailabl e Encounter Details Date Type Department Care Team (Late st Contact Info) Description 01/07/2019 Transcribed Document [facility] [place] [facility] [place] [address] ProviderBrianne MD [facility]ly [facility], [facility] [place], [place] [id number] Social History Tobacco Use Types Packs/Day Years [...] Other: ice RN/PCT Informed Comment : RN, matthias and pt consent Treatment End Time : [...] DAY Chou PT - 01/08/2019 12:36 EDT Mill Recorder Goals Mobility/Bed Mobility LTG PT Grid Goal [...] acute complaints. Additional Objective Information : Joint horse riding coach or instructor present during treatment Independent sup-sit SBA sit-stand [...] DAY RAJAN PT - 01/08/2019 12:36 EDT Electronically signed by Victor Manuel Alcala Conversion Vein Access Technician Alpesh at 09/14/2022 12:17 PM CDT documented in this encounter Plan of Treatment Not on file documented as of this encounter Visit Diagnoses Not on filedocumented in this encounter
--- OUTSIDE RECORDS SUMMARY | 2024-12-07 22:15 | XMS_ITS | Encounter Summary ---
Author Organization [employer] ([place], [place], [place], [place]) Address [address] [place] [address] Care Team Providers Care Payloader Machine Operator Name Role Phone Unavailable Primary Care Provider Unavailabl e Encounter Details Date Type Department Care Team (Late st Contact Info) Description 01/07/2019 Transcribed Document [facility] [place] [facility] [place] [address] ProviderBrianne MD [address] [place], [place] [id number] Social History Tobacco Use Types Packs/Day Years Used Date Smoking Tobacco: Never Assessed Sex and Gender Information Value Date Recorded Sex Assigned at Male 11/21/2021 1:59 PM CDT Legal Sex Male 1:59 PM CDT Gender Identity Male 11/21/2021 1:59 PM CDT Sexual Orientation Not on file documented as of this encounter Miscellaneous Notes * Cerner Conversion Note - Brainne Kim MD - 01/07/2019 7:55 AM CDT [facility] Main OR PACU Summary Primary Physician: JULIO RUSHING MD-ORT Finalized Date/Time: 01/07/19 10:48:18 Pt. Name: NADER TOLENTINO /Sex: 1940 Male Med Rec #: [id number] Physician: JULIO RUSHING MD-ORT Financial #: [id number] Pt. Type: I Room/Bed: 638/1 Admit/Disch: 01/07/19 07:08:00 - Institution: [facility] Main OR PACU I Case Times Entry 1 In PACU I 01/07/19 09:18:00 Ready for PACU 01/07/19 10:07:00 Discharge Discharge from PACU 01/07/19 10:40:00 I Last Modified By: JATINDER LYN RN 01/07/19 10:48:02 [facility] Main OR PACU I Case Times Audit 01/07/19 10:48:02 Point Of Care Technician: BRANDEP Modifier: BRANDEP <+> 1 Discharge from PACU I 01/07/19 10:47:55 Point Of Care Technician: BRANDEP Modifier: BRANDEP <+> 1 Ready for PACU Discharge [facility] Main OR PACU Acuity Entry 1 Start Time 01/07/19 10:07:00 Stop Time 01/07/19 10:40:00 Acuity Level [facility] PACU Acuity I Last Modified By: JATINDER LYN RN 01/07/19 10:48:17 Finalized By: JATINDER LYN RN Document Signatures Signed By: JATINDER LYN RN 01/07/19 10:48 Electronically signed by [facility] Conversion Vp Ad Products And Planning Cerner at 09/14/2022 12:18 PM CDT documented in this encounter Plan of Treatment Not on file documented as of this encounter Visit Diagnoses Not on filedocumented in this encounter
--- OUTSIDE RECORDS SUMMARY | 2024-12-07 22:15 | XMS_ITS | Encounter Summary ---
Author Organization [employer] ([place], [place], [place]) Address [address] [place] [address] Care Team Providers Care Ingot Buggy Operator Name Role Phone Unavailable Primary Care Provider Unavailabl e Encounter Details Date Type Department Care Team (Late st Contact Info) Description 01/07/2019 Transcribed Document [facility] Family Medicine Formerly [facility] [place] [address] ProviderBrianne MD [address] [place], [place] [id number] Social History Tobacco Use Types Packs/Day Years [...] STELLA JONES OTR/L - 01/08/2019 15:26 EDT [facility] Goals, OT Dressing, Lower Body LTG Grid Goal #1 Activity : Dressing, Lower Body Assist : Supervision or set up Equipment : Long Handled Counter Intelligence, Sock aid, Long handled shoehorn Date to [...] safety in home setting with ADLs Joint assistant wrestling coach present STELLA JONES OTR/L - 01/08/2019 [...] Electronically signed by Victor Manuel Alcala Conversion Market Research Associate Cerner at 09/14/2022 12:21 PM CDT documented in this encounter Plan of Treatment Not on file documented as of this encounter Visit Diagnoses Not on filedocumented in this encounter
--- OUTSIDE RECORDS SUMMARY | 2024-12-07 22:15 | XMS_ITS | Encounter Summary ---
Author Organization [facility] ([place]) Address [address] [place] [address] Care Team Providers Care Industrial Training Specialist Name Role Phone Unavailable Primary Care Provider Unavailabl e Encounter Details Date Type Department Care Team (Late st Contact Info) Description 01/08/2019 Transcribed Document [facility] [place] [facility] [place] [address] ProviderBrianne MD [address] [place] [phone] Social History Tobacco Use Types Packs/Day Years [...] On: 01/08/2019 14:30 EDT by KATARINA BREWER RN-Molder Closed Molds Initial Assessment I Previously Documented Living Environment [...] none Legal Guardian : Yes KATARINA BREWER RN-Molder Closed Molds - 01/08/2019 14:30 EDT Initial Assessment II Sensory and Motor Deficits : None Current Home Treatments and Equipment : None, Cane, Crutches KATARINA BREWER RN-Molder Closed Molds - 01/08/2019 14:30 EDT Discharge Needs I Anticipated Discharge Date : 01/08/2019 EDT Anticipated Discharge To, CM : Home with home health Current Home Treatment/Equipment : Current Home Treatment/Equipment No qualifying data available. Post Acute/Home Treatments : Bedside commode, Walker KATARINA BREWER RN-Molder Closed Molds - 01/08/2019 14:30 EDT Discharge Needs II Professional Skilled Services : Professional Skilled Services No qualifying data available. Needs Assistance with Transportation : No Discharge Options Discussed with Patient : DME, Home Health KATARINA BREWER RN-Molder Closed Molds - 01/08/2019 14:30 EDT Narrative Note Narrative Note : 78yo male pt s/p RTHA-direct anterior approach. Met with pt and friend at bedside to discuss DCP. FRW and BSC obtained from [facility] and have beend elivered to pt's room. Referral sent to [facility] via Andrea and zain Choi. No other CM needs identified. KATARINA BREWER RN-Molder Closed Molds - 01/08/2019 14:30 EDT documented in this encounter Plan of Treatment Not on file documented as of this encounter Visit Diagnoses Not on filedocumented in this encounter
--- OUTSIDE RECORDS SUMMARY | 2024-12-07 22:15 | XMS_ITS | Encounter Summary ---
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 Patient and family verbalize understanding Moira Evans RN - 01/08/2019 17:03 EDT Electronically signed by Cari, [facility] Conversion Business Specialist Cerner at 09/14/2022 12:18 PM CDT documented in this encounter Plan of Treatment Not on file documented as of this encounter Visit Diagnoses Not on filedocumented in this encounter
--- OUTSIDE RECORDS SUMMARY | 2024-12-07 22:15 | XMS_ITS | Encounter Summary ---
Author Organization [employer] ([place], [place], [place], [place]) Address [address] [place] [address] Care Team Providers Care Network Developer Name Role Phone Unavailable Primary Care Provider Unavailabl e Encounter Details Date Type Department Care Team (Late st Contact Info) Description 01/07/2019 Transcribed Document [facility] Radiology [address] [place] [id number] Agnieszka Live MD [address] [place] [id number] Social History Tobacco Use Types Packs/Day [...] is a 78 yo male admitted to [facility] per Dr. Mccullough for a right total [...]
--- OUTSIDE RECORDS SUMMARY | 2024-12-07 22:15 | XMS_ITS | Encounter Summary ---
Author Organization [employer] ([place], [place], [place], [place]) Address [address] [place] [address] Care Team Providers Care Retail Sales Vitamin Consultant Name Role Phone Unavailable Primary Care Provider Unavailabl e Encounter Details Date Type Department Care Team (Late st Contact Info) Description 01/07/2019 Transcribed Document [facility] [place] [facility] [place] [address] ProviderBrianne MD [address] [place] [phone] Social History Tobacco Use Types Packs/Day Years [...] STELLA JONES NINI - 01/07/2019 15:29 EDT Senior Care Goals, OT Dressing, Lower Body LTG Grid Goal #1 Activity : Dressing, Lower Body Assist : Supervision or set up Equipment : Long Handled Railroad Wheels And Axle Inspector, Sock aid, Long handled shoehorn Date [...] : Initial goal KAREN NINI DOUGLAS - 01/07/2019 15:29 EDT Treatment Note [...] STELLA JONES OTR/Jaron - 01/07/2019 15:29 EDT Electronically signed by Victor Manuel Alcala Conversion Tunneling Machine Operator Cerner at 09/14/2022 12:20 PM CDT documented in this encounter Plan of Treatment Not on file documented as of this encounter Visit Diagnoses Not on filedocumented in this encounter
--- OUTSIDE RECORDS SUMMARY | 2024-12-07 22:15 | XMS_ITS | Encounter Summary ---
Author Organization [employer] ([place]) Address [address] [place] [address] Care Team Providers Care Feeder Catcher Tobacco Name Role Phone Unavailable Primary Care Provider Unavailabl e Encounter Details Date Type Department Care Team (Late st Contact Info) Description 11/12/2018 Transcribed Document [facility] [place] [facility] [place] [address] ProviderBrianne MD [address] [place] [address] Social History Tobacco Use Types [...] dr. Moscoso neurologist. dr rodriguez phone number [phone]. will have Ariana Mccallum call daughter and go over class instructions with pt/daughter or reschedule appt for class... JAX MENDEZ RN - 11/12/2018 9:47 EDT documented in this encounter Plan of Treatment Not on file documented as of this encounter Visit Diagnoses Not on filedocumented in this encounter
--- OUTSIDE RECORDS SUMMARY | 2024-12-07 22:15 | XMS_ITS | Encounter Summary ---
Author Organization [employer] ([place], [place], [place], [place]) Address [address] [place] [address] Care Team Providers Care Drug And Alcohol Counsellor Name Role Phone Unavailable Primary Care Provider Unavailabl e Encounter Details Date Type Department Care Team (Late st Contact Info) Description 01/08/2019 Transcribed Document [facility] [place] [facility] [place] [address] ProviderBrianne MD [address] [place] [phone] Social History Tobacco Use Types Packs/Day Years [...] Moira Evans RN - 01/08/2019 10:58 EDT Electronically signed by Victor Manuel Alcala Conversion Quality Control Operator Alpesh at 09/14/2022 12:12 PM CDT documented in this encounter Plan of Treatment Not on file documented as of this encounter Visit Diagnoses Not on filedocumented in this encounter
--- OUTSIDE RECORDS SUMMARY | 2024-12-07 22:15 | XMS_ITS | Clinical Summary ---
Author Organization [employer] ([place], [place], [place]) Address [address] [place] [address] Care Team Providers Care Harness Cleaner Name Role Phone Unavailable Primary Care [...]
--- OUTSIDE RECORDS SUMMARY | 2024-12-07 22:15 | XMS_ITS | Encounter Summary ---
Author Organization [employer] ([place], [place], [place], [place]) Address [address] [place] [address] Care Team Providers Care Biological Photographer Name Role Phone Unavailable Primary Care Provider Unavailabl e Encounter Details Date Type Department Care Team (Late st Contact Info) Description 01/08/2019 Transcribed Document [facility] [place] [facility] [place] [address] ProviderBrianne MD [address] [place], [place] [id number] Social History Tobacco Use Types Packs/Day Years [...] On: 01/08/2019 14:32 EDT by KATARINA BREWER RN-Case Packer Final Discharge Planning Discharge Arrangements : Patient [...] Services (Related/SOC within 3 days)-06 KATARINA BREWER RN-Case Packer - 01/08/2019 14:32 EDT Electronically signed by Cari [facility] Conversion Hay Stacker Operator Cerner at 09/14/2022 12:16 PM CDT documented in this encounter Plan of Treatment Not on file documented as of this encounter Visit Diagnoses Not on filedocumented in this encounter
--- OUTSIDE RECORDS SUMMARY | 2024-12-07 22:15 | XMS_ITS | Encounter Summary ---
Author Organization [employer] ([place], [place], [place], [place]) Address [address] [place] [address] Care Team Providers Care Cnc Manufacturing Engineer Name Role Phone Unavailable Primary Care Provider Unavailabl e Encounter Details Date Type Department Care Team (Late st Contact Info) Description 01/07/2019 Transcribed Document [facility] [place] [facility] [place] [address] ProviderBrianne MD [address], [place] [phone] Social History Tobacco Use Types Packs/Day Years [...] Kim MD - 01/07/2019 7:55 AM CDT [facility] Main OR IntraOp Summary Primary Physician: JULIO RUSHING MD-ORT Finalized Date/Time: 01/08/19 13:21:56 Pt. Name: NADER TOLENTINO /Sex: 1940 Male Med Rec #: [id number] Physician: JULIO RUSHING MD-ORT Financial #: [id number] Pt. Type: I Room/Bed: 638/1 Admit/Disch: 01/07/19 07:08:00 - Institution: [facility] IntraOp Case Attendance Entry 1 Entry 2 Entry 3 Case Attendee JULIO RUSHING WILSON, MATTHEW L, MD VON KUSTER, NICOLASA MD-ASHLEY ARREGUIN, SENIOR MORTGAGE UNDERWRITER Role Performed Surgeon/Proceduralist, Anesthesiologist of SENIOR MORTGAGE UNDERWRITER/Nurse Energy Broker First Record Time In 01/07/19 07:19:00 01/07/19 [...] Lucie Madrigal, BARBER Lock CSA Lasslo, Jamie, Scrap Hoist Operator Role Performed Ticket Agent, Security Director, First Scrub, First Time In 01/07/19 07:19:00 [...] Juan Carlos Pref Card Builder Role Performed Hoisting Engineer Pile Driving Scrub, Second Vendor Time In 01/07/19 07:19:00 [...] Modified By: Lucie Madrigal Rn 01/07/19 09:36:01 [facility] IntraOp Case Attendance Audit 01/07/19 09:36:01 Beamer Helper: [id number] Modifier: [id number] 1 <+> Time Out 1 <*> Procedure [...] Procedure Hip Total Anterior Approach(Right) 01/07/19 09:05:32 Beamer Helper: [id number] Modifier: [id number] 1 <*> Procedure Hip Total Anterior Approach(Right) [...] 10 <*> Procedure Hip Total Anterior Approach(Right) [facility] IntraOp Case Times Entry 1 Patient In Room Time 01/07/19 07:19:00 Out Room Time 01/07/19 09:14:00 Anesthesia Start Time 01/07/19 07:19:00 Stop Time 01/07/19 09:14:00 Surgery / Procedure Times Start Time 01/07/19 07:55:00 Stop Time 01/07/19 09:05:00 Last Modified By: Lucie Madrigal Rn 01/07/19 09:14:50 [facility] IntraOp Case Times Audit 01/07/19 09:14:50 Beamer Helper: [id number] Modifier: [id number] <+> 1 Out Room Time <+> 1 Stop Time 01/07/19 09:05:31 Beamer Helper: [id number] Modifier: [id number] <+> 1 Stop Time [facility] IntraOp Cautery Entry 1 ESU Identification Cautery Type Monopolar ESU ID Number [id number] ID Type Hospital Number Cautery Settings Cut Setting 50 Coag Setting 50 ESU Grounding Pad Ground Pad Type Adult Grounding Pad Site Left thigh Grounding Pad Lucie Madrigal Rn Applied By Grounding Pad Site Intact, Warm, Dry Skin Condition Before Cautery Grounding Pad Site Unchanged Skin Condition After Cautery Last Modified By: Lucie Madrigal Rn 01/07/19 08:06:36 [facility] IntraOp Communication Entry 1 Entry 2 Communication To Family/Significant other Family/Significant other Comment START CLOSING Communication By Lucie Madrigal, Rn Lucie Madrigal, Rn Date and Time 01/07/19 07:56:00 01/07/19 08:52:00 Last Modified By: Lucie Madrigal Rn Bruner, Kristen D, Rn 01/07/19 08:06:48 01/07/19 08:52:32 [facility] IntraOp Communication Audit 01/07/19 08:52:32 Beamer Helper: [id number] Modifier: [id number] <+> 2 Communication By <+> 2 Date and Time <+> 2 Communication To <+> 2 Comment [facility] IntraOp Counts Verification Entry 1 Procedure Hip Total Anterior Approach(Right) Count Info Count Type Sponge, Sharps, Miscellaneous Counts Verification Baseline/pre-procedure Sequence Count Results Not Applicable Counts Performed By Count Performed By Luis Marcos, Surgical (Scrub) Beef Trimmer Count Performed By Lucie Madrigal Rn (RN) Last Modified By: Lucie Madrigal Rn 01/07/19 08:06:57 [facility] IntraOp Counts Final Entry 1 Procedure Hip Total Anterior Approach(Right) Final Count Info Count Type Sponge, Sharps, Miscellaneous Counts Verification Skin Closure/end of Sequence procedure Count Results Correct, surgeon notified Counts Performed By Count Performed By Luis Marcos, Surgical (Scrub) Beef Trimmer Count Performed By Lucie Madrigal Rn (RN) Last Modified By: Lucie Madrigal Rn 01/07/19 08:52:23 [facility] IntraOp Counts Final Audit 01/07/19 08:52:23 Beamer Helper: [id number] Modifier: [id number] 1 <*> Procedure Hip Total Anterior Approach(Right) 1 <+> Count Performed By (Scrub) 1 <+> Count Performed By (RN) [facility] IntraOp Cultures and Spec Summary Entry 1 Cultrures and Specimens Specimen Ordered: Yes Test(s) Routine/Path-Lab Requested/Final Disposition Last Modified By: Lucie Madrigal Rn 01/07/19 08:08:06 General Comments: A. RIGHT FEMORAL HEAD [facility] IntraOp Departure from OR Entry 1 Integumentary Assessment Integumentary WDL with patient Assessment WDL specific variances Patient's Normal NEW SURGICAL INCISION Integumentary Variance(s) Transfer/Handoff Transfer to PACU Phase I Handoff Method Phone call Post-op Transport Stretcher/Yang Via Patient Transport NICOLASA LEAL Accompanied by KRISTI ARREGUIN Bruner, Kristen D, Rn Last Modified By: Lucie Madrigal Rn 01/07/19 08:08:31 [facility] IntraOp Dressing and Packing Entry 1 Type Dressing Location OPERATIVE SITE Wound Dressing Item Occlusive dressing, Skin Closure Glue Supplemental Cold pack Applications Applied By BARBER RAMIREZ CSA Other Comments [employer]OV[employer] Last Modified By: Lucie Madrigal Rn 01/07/19 08:08:42 [facility] IntraOp Fire Risk Assessment Entry 1 Fire Info Surgical Site or 0- No Incision Above the Xyphoid Open O2 Source 0- No (Mask or Cannula) Available Ignition 1- Yes (ESU, Laser, Light Source) Fire Risk 1 Assessment Score Fire Score Fire Risk Yes Assessment Complete Fire Risk Lucie Madrigal, Monument Setter Helper Verified By Fire Risk 01/07/19 07:19:00 Assessment Verified Date/Time Fire Risk Standard Fire Yes Safety Precautions Followed Last Modified By: Lucie Madrigal Rn 01/07/19 08:08:47 [facility] IntraOp General Case Fancy Wire Drawer 1 Case Information OR OR 04 [facility] Case Level 1 Room Verified Yes Wound Class I - Clean Specialty SN Orthopedic Anesthesia Type General ASA Class 3 Diagnosis Preop Diagnosis UNILATERAL PRIMARY OSTEOARTHRITIS: RIGHT HIP Postop Same As Preop No Postop Diagnosis SEE MD POSTOP NOTE Last Modified By: Lucie Madrigal Rn 01/07/19 08:09:19 [facility] IntraOp General Case Data Audit 01/07/19 08:09:19 Beamer Helper: [id number] Modifier: [id number] <+> 1 Postop Same As Preop <+> 1 Preop Diagnosis <+> 1 Postop Diagnosis [facility] IntraOp Implant Log Entry 1 Entry 2 Entry 3 Type Implant (Synthetic) Implant (Synthetic) Implant (Synthetic) Implant Log Implant Type Hardware Hardware Hardware Tissue Implant Type Implant INSRT TRIDENT X3 0DEG TRIDENT II TRI SCR LOW PROFILE Identification [id number] [facility] [id number] Description Implant Quantity 1 1 1 Implant Site OPSITE: RIGHT HIP OPSITE: RIGHT HIP OPSITE: RIGHT HIP Implant Identification Model Number Implant Identification Serial Number Implant [id number] Identification Lot Number Implant Koko:[place]rose Koko Ortho Cap Montrose:Montrose Identification Orthopaedics Orthopaedics Hoof Trimmer Name: Implant [id number] Identification Catalog Number Implant Size 36MM 52MM 6.5X25MM Implant Has an Yes Yes Yes Expiration Date Implant Expiration 06/01/24 06/10/24 04/10/24 Date Wasted Radioactive Material Time Implanted Tissue Implant Continue for Tissue Implant Documentation Tissue Identification Number Graft Prep Per Hoof Trimmer Instructions: Tissue Preparation Method: Reconstitution Solution: Reconstitution Solution Lot Number Reconstitution Solution Expiration Date: Thawing Solution Thawing Solution Lot Number Thawing Solution Expiration Date Preparation Materials, Other Preparation Materials, Other Lot Number Preparation Materials, Other Expiration Date Tissue Prepared/Processed By Hoof Trimmer Paperwork Completed Implant Type Comment Last Modified By: Lucie Madrigal Rn Bruner, Kristen D, Lucie Cantu, Luis 01/07/19 08:32:30 01/07/19 08:32:30 01/07/19 08:32:30 Entry 4 Entry 5 Entry 6 Type Implant (Synthetic) Implant (Synthetic) Implant (Synthetic) Implant Log Implant Type Hardware Hardware Hardware Tissue Implant Type Implant SCR LOW PROFILE HIP STEM ACCOLADE II HEAD FEM BIOLOX V40 Identification [id number] Description Implant Quantity 1 1 1 Implant Site OPSITE: RIGHT HIP OPSITE: RIGHT HIP OPSITE: RIGHT HIP Implant Identification Model Number Implant Identification Serial Number Implant [id number] Identification Lot Number Implant Montrose:Koko Montrose:Koko Koko:Koko Identification Orthopaedics Orthopaedics Orthopaedics Hoof Trimmer Name: Implant [id number] Identification Catalog Number Implant Size 6.5X20MM 9 36MM Implant Has an Yes Yes Yes Expiration Date Implant Expiration 08/07/23 03/12/23 09/08/23 Date Wasted Radioactive Material Time Implanted Tissue Implant Continue for Tissue Implant Documentation Tissue Identification Number Graft Prep Per Hoof Trimmer Instructions: Tissue Preparation Method: Reconstitution Solution: Reconstitution Solution Lot Number Reconstitution Solution Expiration Date: Thawing Solution Thawing Solution Lot Number Thawing Solution Expiration Date Preparation Materials, Other Preparation Materials, Other Lot Number Preparation Materials, Other Expiration Date Tissue Prepared/Processed By Hoof Trimmer Paperwork Completed Implant Type Comment Last Modified By: Lucie Madrigal, Lucie Cantu, Lucie Cantu Rn 01/07/19 08:32:30 01/07/19 08:52:11 01/07/19 08:52:11 [facility] IntraOp Implant Log Audit 01/07/19 08:52:11 Beamer Helper: [id number] Modifier: [id number] <+> 5 Implant Identification Description <+> 5 Implant Identification Lot Number <+> 5 Implant Identification Hoof Trimmer Name: <+> 5 Implant Size <+> 5 Implant Expiration Date <+> 5 Implant Site <+> 5 Implant Quantity <+> 5 Implant Identification Catalog Number <+> 5 Implant Type <+> 5 Implant Has an Expiration Date <+> 5 Type <+> 6 Implant Identification Description <+> 6 Implant Identification Lot Number <+> 6 Implant Identification Hoof Trimmer Name: <+> 6 Implant Size <+> 6 Implant Expiration Date <+> 6 Implant Site <+> 6 Implant Quantity <+> 6 Implant Identification Catalog Number <+> 6 Implant Type <+> 6 Implant Has an Expiration Date <+> 6 Type [facility] IntraOp Intraoperative Assessment Entry 1 Handoff Method [...] Modified By: Lucie Madrigal Rn 01/07/19 08:09:27 [facility] IntraOp Intraoperative Equipment Entry 1 Type Equipment Equipment Equipment Vinicius Suction System ID Number [id number] Setting HIGH Intraop Monitoring Electrocardiogram Three lead placement (ECG) Electrode Placement Blood Pressure Non-Invasive BP Device Source Blood Pressure Arm, right upper Location Pulse Oximeter Hand, left Probe Site Antiembolic Devices Antiembolic Devices Sequential compression device, knee high, Antiembolic hose, thigh high Antiembolic Device Bilateral Location Scopes Photo/Video Documentation Last Modified By: Lucie Madrigal Rn 01/07/19 08:09:46 [facility] IntraOp Medication Admin Entry 1 Entry 2 Medication/Irrigant Bacitracin 50,00units vancomycin 1Gm vial - powder vial [id number] Combo Med List 1 - Combo Med Time Administered Route of ADDED TO IRRIGATION TOPICAL Administration Dose Dose 50666 1 Unit of Measure units gram Volume Administered By JULIO RUSHING, JULIO RUSHING MD-ORT MD-ORT Procedure Irrigation Irrigant Volume In Irrigant Volume Out Last Modified By: Lucie Madrigal Rn Bruner, Kristen D, Rn 01/07/19 08:10:01 01/07/19 08:10:01 [facility] IntraOp Patient Positioning Entry 1 Procedure Hip Total Anterior Approach(Right) Body Position Supine Left Arm Position Secured on padded arm board Right Arm Position Secured on padded arm board Left Leg Position Secured in Leg Igron Right Leg Position Secured in Leg Giron [...] Modified By: Lucie Madrigal Rn 01/07/19 08:10:10 [facility] IntraOp Sign In Entry 1 Patient, Site, [...] Modified By: Lucie Madrigal Rn 01/07/19 08:10:15 [facility] IntraOp Sign Out Entry 1 RN Confirmation [...] Modified By: Lucie Madrigal Rn 01/07/19 09:05:41 [facility] IntraOp Sign Out Audit 01/07/19 09:05:41 Beamer Helper: [id number] Modifier: [id number] <+> 1 RN Sign Out Signature Date/Time [facility] IntraOp Skin Prep Entry 1 Procedure Hip Total Anterior Approach(Right) Prescribed Yes Pre-Surgical Prep Completed Prep Area OPERATIVE HIP TO KNEE Intraop Prep Integumentary WDL Assessment WDL Prep Agents Alcohol, Chloraprep, DuraPrep, Chlorhexadine gluconate Prep by Lucie Madrigal Rn Hair Removal Methods No hair removal performed Last Modified By: Lucie Madrigal Rn 01/07/19 08:10:26 [facility] IntraOp Surgical Procedures Entry 1 Procedure Hip [...] TO STERILE FIELD PER Alla MADRIGAL RN [facility] IntraOp Surgical Procedures Audit 01/07/19 09:05:36 Beamer Helper: [id number] Modifier: [id number] 1 <*> Procedure Hip Total Anterior Approach 1 <*> Procedure Hip Total Anterior Approach 1 <*> Procedure Hip Total Anterior Approach 1 <*> Stop 1 <*> Stop [facility] IntraOp Temp Regulation Devices Entry 1 Temp Regulation Temperature Forced Air Warming Regulation Device device, Warm blankets Temperature Regulation Device Serial/Unit Number Temperature Upper body Regulation Site Temperature Device 43 DEGREES CELCIUS Setting Temperature VON NICOLASA HINTON Regulation Device KRISTI ARREGUIN Applied by Last Modified By: Lucie Madrigal Rn 01/07/19 08:11:19 [facility] IntraOP Time Out Entry 1 Procedure to [...] Modified By: Lucie Madrigal Rn 01/07/19 08:11:45 [facility] IntraOp X-Ray and Images Entry 1 X-Ray/Imaging Type Fluoroscopy Fluoroscopy Type C-Arm Site OPERATIVE HIP Epic Specialist Name DARNELL COBIAN Rashid Protective Devices No [...] WATTSDR Correct Billing Electronically signed by Cari [facility] Conversion Air Purifier Servicer Cerner at 09/14/2022 12:16 PM CDT documented in this encounter Plan of Treatment Not on file documented as of this encounter Visit Diagnoses Not on filedocumented in this encounter
--- OUTSIDE RECORDS SUMMARY | 2024-12-07 22:15 | XMS_ITS | Encounter Summary ---
Author Organization [employer] ([place], [place], [place], [place]) Address [address] [place] [address] Care Team Providers Care Surveillance Sensor Operator Name Role Phone Unavailable Primary Care Provider Unavailabl e Encounter Details Date Type Department Care Team (Late st Contact Info) Description 01/08/2019 Transcribed Document [facility] [place] [facility] [place] [address] ProviderBrianne MD [address] [place], [place] [phone] Social History Tobacco Use Types Packs/Day Years [...]
--- OUTSIDE RECORDS SUMMARY | 2024-12-07 22:15 | XMS_ITS | Encounter Summary ---
Author Organization [employer] ([place], [place], [place], [place]) Address [address] [place] [address] Care Team Providers Care A Operator Name Role Phone Unavailable Primary Care Provider Unavailabl e Encounter Details Date Type Department Care Team (Late st Contact Info) Description 01/07/2019 Transcribed Document [facility] Radiology [address] [place] [id number] Urszula Mccullough MD [facility] [place] [address] Social History Tobacco Use Types [...] Diagnosis Osteoarthritis right hip *Surgeon(s) Surgeon: Jamel Probation Officer: Darrell *Procedure Narrative Patient was identified in [...] patient was then carefully positioned on the [place] table. The hip was then prepped and [...] series of hemispherical acetabular reamers were passed. Gytj-rr-graw ream, with an excellent bleeding cancellous bony [...] femoral head: 36 mm +5 Reaming technique: [id number] Initial press-fit assessment: adequate Acetabular screws: 2 [...]
--- OUTSIDE RECORDS SUMMARY | 2024-12-07 22:15 | XMS_ITS | Encounter Summary ---
Author Organization [employer] ([place], [place], [place], [place]) Address [address] [place] [address] Care Team Providers Care Statement Distribution Clerk Name Role Phone Unavailable Primary Care Provider Unavailabl e Encounter Details Date Type Department Care Team (Late st Contact Info) Description 01/07/2019 Transcribed Document [facility] [place] [facility] [place] [address] ProviderBrianne MD [address], [place] [phone] Social History Tobacco Use Types Packs/Day Years [...] Electronically signed by Victor Manuel Alcala Conversion Commissioned Defence [employer] Officer Cerner at 09/14/2022 12:21 PM CDT documented in this encounter Plan of Treatment Not on file documented as of this encounter Visit Diagnoses Not on filedocumented in this encounter
--- OUTSIDE RECORDS SUMMARY | 2024-12-07 22:15 | XMS_ITS | Encounter Summary ---
Author Organization [employer] ([place], [place], [place], [place]) Address [address] [place] [address] Care Team Providers Care Credit Cashier Name Role Phone Unavailable Primary Care Provider Unavailabl e Encounter Details Date Type Department Care Team (Late st Contact Info) Description 01/08/2019 Transcribed Document [facility] [place] [facility] [address] ProviderBrianne MD [facility] [place], [place] [phone] Social History Tobacco Use Types Packs/Day Years [...] 01/08/2019 12:39 EDT Electronically signed by Cari, [facility] Conversion Vacuum Repairer Cerner at 09/14/2022 12:18 PM CDT documented in this encounter Plan of Treatment Not on file documented as of this encounter Visit Diagnoses Not on filedocumented in this encounter
--- OUTSIDE RECORDS SUMMARY | 2024-12-07 22:15 | XMS_ITS | Encounter Summary ---
Author Organization [employer] ([place], [place], [place], [place]) Address [address] [place] [address] Care Team Providers Care Visual Lead Name Role Phone Unavailable Primary Care Provider Unavailabl e Encounter Details Date Type Department Care Team (Late st Contact Info) Description 01/08/2019 Transcribed Document [facility] [place] [facility] [place] [address] ProviderBrianne MD [facility] [place], [place] [phone] Social History Tobacco Use Types Packs/Day Years [...] On: 01/08/2019 14:32 EDT by KATARINA BREWER RN-Medical Records Library ProfessorCheerleading Coach Progress Note Discharge Arrangements : Patient Post-Acute [...] to SNF Benefit? : Yes KATARINA BREWER RN-Medical Records Library Professor - 01/08/2019 14:32 EDT Electronically signed by Cari [facility] Conversion Real Estate Consultant Cerner at 09/14/2022 12:16 PM CDT documented in this encounter Plan of Treatment Not on file documented as of this encounter Visit Diagnoses Not on filedocumented in this encounter
--- OUTSIDE RECORDS SUMMARY | 2024-12-07 22:15 | XMS_ITS | Encounter Summary ---
Author Organization [employer] ([place], [place], [place], [place]) Address [address] [place] [address] Care Team Providers Care Label Stamper Name Role Phone Unavailable Primary Care Provider Unavailabl e Encounter Details Date Type Department Care Team (Late st Contact Info) Description 11/28/2018 Transcribed Document [facility] Radiology [address] [place] [address] Ashvin Irby MD [address] [place] [address] Social History Tobacco Use Types Packs/Day Years [...] DESCRIPTION: Patient was taken back to the supervisor laboratory animal facility and placed in supine position on the supervisor laboratory animal facility table. Following time-out, he was sedated. His bilateral groins were widely prepped and draped in standard sterile fashion. Systemic heparinization was performed. Right femoral arteriotomy was accessed and a 6-Japanese sheath was placed. Systemic heparinization was performed. [...] made to proceed with carotid stenting. A 6-Japanese sheath was advanced into the left common [...]
--- OUTSIDE RECORDS SUMMARY | 2024-12-07 22:15 | XMS_ITS | Encounter Summary ---
Author Organization [employer] ([place], [place], [place], [place]) Address [address] [place] [address] Care Team Providers Care Pcas Name Role Phone Unavailable Primary Care Provider Unavailabl e Encounter Details Date Type Department Care Team (Late st Contact Info) Description 01/08/2019 Transcribed Document [facility] [place] [facility] [place] [address] ProviderBrianne MD [facility] [place], [place] [phone] Social History Tobacco Use Types Packs/Day Years [...]
--- OUTSIDE RECORDS SUMMARY | 2024-12-07 22:15 | XMS_ITS | Encounter Summary ---
Author Organization [employer] ([place], [place], [place], [place]) Address [address] [place] [address] Care Team Providers Care Parquetry Layer Name Role Phone Unavailable Primary Care Provider Unavailabl e Encounter Details Date Type Department Care Team (Late st Contact Info) Description 01/07/2019 Transcribed Document [facility] [place] [facility] [place] [address] ProviderBrianne MD [address] [place], [place] [phone] Social History Tobacco Use Types Packs/Day Years [...]
--- OUTSIDE RECORDS SUMMARY | 2024-12-07 22:15 | XMS_ITS | Encounter Summary ---
Author Organization [employer] ([place], [place], [place], [place]) Address [address] [place] [address] Care Team Providers Care Asset Protection Specialist Name Role Phone Unavailable Primary Care Provider Unavailabl e Encounter Details Date Type Department Care Team (Late st Contact Info) Description 01/08/2019 Transcribed Document [facility] [place] [address] [place] [address] ProviderBrianne MD [address] [place] [address] Social History Tobacco Use Types [...] Kim MD - 01/08/2019 3:56 PM CDT [facility] [address] NADER TOLENTINO :1940 Visit Time:01/07/2019 Your Visit Summary Your Care Team Admitting Physician - JULIO MCCULLOUGH MD-ORT Attending Physician - JULIO MCCULLOUGH MD-ORT Primary Care Physician - SIMON AG MD-RICHARD Referring Physician - JULIO MCCULLOUGH MD-ASHLEY Your Diagnosis History of hip replacement, total Unilateral primary osteoarthritis, right hip, Unilateral primary osteoarthritis, right hip These Are Your Goals Walk around big [employer] and up and down stairs. Discharge Vitals [...] to air Medical Equipment for Home Use: Contours--[phone] Home Health Services: [facility]--[phone] Discharge Follow Up Instructions: Follow-up Dr. Mccullough 3 wks ([phone]) Follow Up Instructions: Continue NADIA hose for 6 weeks Follow Up Instructions: Leave Aquacel dressing in place x 7-10d, then open to air. Follow-Up Appointments Follow Up with JA THAKUR PA-ORT When 01/28/2019 01:45 PM EDT Comments JAKY Hussein Where: [address] [place], [place] [address], [place] [address]- Medications What How Much When Instructions Next [...] of Dr. Mccullough or Dr. Shields, call [phone] If you are a patient of Dr. Alfonso, call [phone] Nurse Navigator: Ariana Mccallum Office: [phone]; ; available during regular business hours ferrous [...] may report side effects to FDA at 5-579-TPK-9722. What other drugs will affect ferrous gluconate? Other drugs may interact with ferrous gluconate, including prescription and oesk-zmc-jvazioh medicines, vitamins, and herbal products. Tell your [...] to ensure that the information provided by [employer]. ('[employer]') is accurate, up-to-date, and complete, but no guarantee is made to that effect. Drug information contained herein may be time sensitive. [employer] information has been compiled for use by healthcare practitioners and consumers in the [place] and therefore [employer] does not warrant that uses outside of the [place] are appropriate, unless specifically indicated otherwise. [employer] drug information does not endorse drugs, diagnose patients or recommend therapy. [employer] drug information is an informational resource designed [...] effective or appropriate for any given patient. [employer] does not assume any responsibility for any aspect of healthcare administered with the aid of information [facility] provides. The information contained herein is not intended to cover all possible uses, directions, precautions, warnings, drug interactions, allergic reactions, or adverse effects. If you have questions about the drugs you are taking, check with your doctor, nurse or pharmacist. Copyright 8778-6018 [employer]. Version: 2.01. Revision Date: 02/19/2017. acetaminophen and [...] may report side effects to FDA at 8-693-KLU-0433. What other drugs will affect acetaminophen and [...] affect acetaminophen and oxycodone, including prescription and ukdc-fmy-tdbenan medicines, vitamins, and herbal products. Not all [...] to ensure that the information provided by [employer] ('[employer]') is accurate, up-to-date, and complete, but no guarantee is made to that effect. Drug information contained herein may be time sensitive. [employer] information has been compiled for use by healthcare practitioners and consumers in the [place] and therefore [employer] does not warrant that uses outside of the [place] are appropriate, unless specifically indicated otherwise. [employer] drug information does not endorse drugs, diagnose patients or recommend therapy. [employer] drug information is an informational resource designed [...] effective or appropriate for any given patient. [employer] does not assume any responsibility for any aspect of healthcare administered with the aid of information [employer] provides. The information contained herein is not intended to cover all possible uses, directions, precautions, warnings, drug interactions, allergic reactions, or adverse effects. If you have questions about the drugs you are taking, check with your doctor, nurse or pharmacist. Copyright 5507-9226 [employer]. Version: 18.02. Revision Date: 04/23/2018. aspirin (oral) [...] What is aspirin? Aspirin is a salicylate (rd-GCO-km-ate). It works by reducing substances in the [...] may report side effects to FDA at 9-995-NVM-3459. What other drugs will affect aspirin? Ask [...] drugs may affect aspirin, including prescription and kmcq-hwv-oxihbdk medicines, vitamins, and herbal products. Not all [...] to ensure that the information provided by [employer]. ('[employer]') is accurate, up-to-date, and complete, but no guarantee is made to that effect. Drug information contained herein may be time sensitive. [employer] information has been compiled for use by healthcare practitioners and consumers in the [place] and therefore [employer] does not warrant that uses outside of the [place] are appropriate, unless specifically indicated otherwise. [employer] drug information does not endorse drugs, diagnose patients or recommend therapy. [employer] drug information is an informational resource designed [...] effective or appropriate for any given patient. [employer] does not assume any responsibility for any aspect of healthcare administered with the aid of information [employer] provides. The information contained herein is not intended to cover all possible uses, directions, precautions, warnings, drug interactions, allergic reactions, or adverse effects. If you have questions about the drugs you are taking, check with your doctor, nurse or pharmacist. Copyright 7912-7032 [employer]. Version: 15.. Revision Date: 08/26/2017. docusate (oral/rectal) [...] 8 ounces of milk, fruit juice, or infant formula and drink the mixture right away. [...] may report side effects to FDA at 2-591-DIC-0045. What other drugs will affect docusate? Other drugs may interact with docusate, including prescription and ixpy-pdi-ccnsbmw medicines, vitamins, and herbal products. Tell each [...] to ensure that the information provided by [employer]. ('[employer]') is accurate, up-to-date, and complete, but no guarantee is made to that effect. Drug information contained herein may be time sensitive. [employer] information has been compiled for use by healthcare practitioners and consumers in the [place] and therefore [employer] does not warrant that uses outside of the [place] are appropriate, unless specifically indicated otherwise. [employer] drug information does not endorse drugs, diagnose patients or recommend therapy. [employer] drug information is an informational resource designed [...] effective or appropriate for any given patient. [employer] does not assume any responsibility for any aspect of healthcare administered with the aid of information [employer] provides. The information contained herein is not intended to cover all possible uses, directions, precautions, warnings, drug interactions, allergic reactions, or adverse effects. If you have questions about the drugs you are taking, check with your doctor, nurse or pharmacist. Copyright 3693-2115 [employer]. Version: 3.03. Revision Date: 07/08/2013. Emergency Awareness [...] Assistance with quitting is available by contacting 4-085-MJTH-NOW. This is a free resource providing counseling, support, and referral. Or you may contact your personal physician. [place] Suicide Prevention Lifeline: The National Suicide Prevention [...] range between ( 0.0 and 7.0 ) [place] #: 1.32 K/uL -- Normal range between ( 0.16 and 1.00 ) [place] #: 0.00 x10(3)/uL -- Normal range between ( 0.00 and 0.80 ) [place] %: 12.7 % -- Normal range between [...] was given the opportunity to ask questions. Patient/Kiln Burner Name: Patient/Kiln Burner Signature: Relationship to Patient: Clinician/Hospital Kiln Burner Signature: Date: Electronically signed by Victor Manuel Alcala Conversion Experiential Therapist Alpesh at 09/14/2022 12:17 PM CDT documented in this encounter Plan of Treatment Not on file documented as of this encounter Visit Diagnoses Not on filedocumented in this encounter
--- OUTSIDE RECORDS SUMMARY | 2024-12-07 22:15 | XMS_ITS | Encounter Summary ---
Author Organization [employer] ([place], [place], [place], [place]) Address [address] [place] [address] Care Team Providers Care Wire Tinner Name Role Phone Unavailable Primary Care Provider Unavailabl e Encounter Details Date Type Department Care Team (Late st Contact Info) Description 11/12/2018 Transcribed Document [facility] [place] Medicine [address] [place] [address] ProviderBrianne MD [address] [place] [address] Social History Tobacco Use Types [...] Source : Measured Height Entry Format : [place] Height, Feet : 5 ft(Converted to: 152 cm, 60 Inch) Height, Inches : 11 Inch(Converted to: 0 ft 11 Inch, 27.94 cm) Clinical Height : 180.34 cm Weight Source : Standing scale Weight Entry Format : [place] Clinical Dosing Weight : 70 kg Weight, Pounds : 154 lb Body Surface Area (BSA) : 1.89 m2 Body Mass Index : 21.5 kg/m2 [place] Body Weight : 74 kg JAX MENDEZ [...] to Learn : Explanation, Printed materials JAX MENDEZ RN - 11/12/2018 9:44 EDT Education Topics, [...] From : Patient, Daughter Primary Language : Thai Communication Barrier : None JAX MENDEZ RN [...] EDT Pain Scale Intensity : 7 JAX MEDNEZ RN - 11/12/2018 9:25 EDT Image 4 - Images currently included in the form version of this document have not been included in the text rendition version of the form. documented in this encounter Plan of Treatment Not on file documented as of this encounter Visit Diagnoses Not on filedocumented in this encounter
--- OUTSIDE RECORDS SUMMARY | 2024-12-07 22:15 | XMS_ITS | Encounter Summary ---
Author Organization [employer] ([place], [place], [place], [place]) Address [address] [place] [address] Care Team Providers Care Manager Telemetry Name Role Phone Unavailable Primary Care Provider Unavailabl e Encounter Details Date Type Department Care Team (Late st Contact Info) Description 12/01/2018 Transcribed Document [facility] [place] Medicine [address] [place] [address] ProviderBrianne MD [address], [place] [id number] Social History Tobacco Use Types Packs/Day Years [...] assessment KALYAN POLANCO - 12/01/2018 15:00 EDT Electronically signed by Victor Manuel Alcala Conversion Client Service Executive Cerner at 09/13/2022 4:25 PM CDT documented in this encounter Plan of Treatment Not on file documented as of this encounter Visit Diagnoses Not on filedocumented in this encounter
--- OUTSIDE RECORDS SUMMARY | 2024-12-07 22:15 | XMS_ITS | Encounter Summary ---
Author Organization [employer] ([place], [place], [place], [place]) Address [address] [place] [address] Care Team Providers Care Supervisor Compressed Yeast Name Role Phone Unavailable Primary Care Provider Unavailabl e Encounter Details Date Type Department Care Team (Late st Contact Info) Description 01/07/2019 Transcribed Document [facility] [place] [facility] [place] [address] ProviderBrianne MD [address], [place] [id number] Social History Tobacco Use Types Packs/Day Years [...] Electronically signed by Victor Manuel Alcala Conversion Document Management Consultant Cerner at 09/14/2022 12:13 PM CDT documented in this encounter Plan of Treatment Not on file documented as of this encounter Visit Diagnoses Not on filedocumented in this encounter
--- OUTSIDE RECORDS SUMMARY | 2024-12-07 22:15 | XMS_ITS | Encounter Summary ---
Author Organization [employer] ([place], [place], [place], [place]) Address [address] [place] [address] Care Team Providers Care Crepe Sole Wire Brusher Name Role Phone Unavailable Primary Care Provider Unavailabl e Encounter Details Date Type Department Care Team (Late st Contact Info) Description 01/08/2019 Transcribed Document [facility] [place] Family Medicine [facility] [place] [address] ProviderBrianne MD [address], [place] [id number] Social History Tobacco Use Types Packs/Day Years [...] Insurance 1 Health Plan: MEDICARE Policy Number: [id number] Authorization Number: Insurance 2 Health Plan: AARP N Policy Number: [id number] Authorization Number: Insurance Primary Name : MEDICARE Authorized Service Begin Date-Primary : 01/07/2019 EDT Historical Authorization Comments-Primary : No Authorization Comments Found Krista Sheldon Rn-Utilization Review - 01/08/2019 8:54 EDT Electronically signed by Victor Manuel Alcala Conversion [employer] Cermarian at 09/14/2022 12:12 PM CDT documented in this encounter Plan of Treatment Not on file documented as of this encounter Visit Diagnoses Not on filedocumented in this encounter
[2024-12-07 22:21] VITALS: BP 208/64; PULSE 62; RESP 18; TEMP 36.8; O2SAT 98; BMI 17.8
--- NOTE | 2024-12-07 22:27 | CT_ITS ---
PROCEDURE INFORMATION: Exam: CT Head Without Contrast Exam date and time: 12/07/2024 10:35 PM Age: 84 years old Clinical indication: Other: Weak; Additional info: Weak, found stuck on toilet after hours TECHNIQUE: Imaging protocol: Computed tomography of the head without contrast. Radiation optimization: All CT scans at this facility use at least one of these dose optimization techniques: automated exposure control; mA and/or kV adjustment per patient size (includes targeted exams where dose is matched to clinical indication); or iterative reconstruction. COMPARISON: CT HEAD/BRAIN WO CON 04/29/2019 4:10 PM FINDINGS: Brain: No acute intracranial hemorrhage, midline shift, or mass effect. Diffuse brain parenchymal volume loss. 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 Moderate hypodensities within the cerebral white matter most consistent with chronic small-vessel ischemic changes. Cerebral ventricles: No ventriculomegaly. Paranasal sinuses: Minimal scattered mucosal thickening. Mastoid air cells: Visualized mastoid air cells are well aerated. Bones: Unremarkable. No acute fracture. Soft tissues: Unremarkable. IMPRESSION: No acute intracranial findings.
--- NOTE | 2024-12-07 22:29 | XR_ITS ---
PROCEDURE INFORMATION: Exam: XR Chest Exam date and time: 12/07/2024 10:36 PM Age: 84 years old Clinical indication: Other: AMS TECHNIQUE: Imaging protocol: Radiologic exam of the chest. Views: 1 view. COMPARISON: CR XR CHEST PORTABLE 09/23/2022 1:34 PM FINDINGS: Tubes, catheters and devices: Right internal jugular dialysis catheter with tip terminating over the right atrium. Lungs: Mild pulmonary vascular congestion. Mildly increased lower lung opacities. Pleural spaces: No pleural effusion. No pneumothorax. Heart/Mediastinum: Stable cardiomediastinal contours. Bones/joints: No acute findings. IMPRESSION: Mild pulmonary vascular congestion. Mildly increased lower lung opacities, which may be seen with pulmonary edema, aspiration/pneumonia, or atelectasis in the acute setting.
[2024-12-07 22:38] LABS: Albumin Level 3.9 g/dl (3.5-5.0); Chloride 99 mmol/L (98-107); Sodium 136 mmol/L (136-145)
[2024-12-07 22:39] LABS: Potassium 4.9 mmoL/L (3.5-5.1)
[2024-12-07 22:41] LABS: Alanine Aminotransferase 22 U/L (12-78); Albumin/Globulin Ratio 1.2 (1.1-1.8); Alkaline Phosphatase 55 U/L (38-126); Anion Gap 17.9 mEq/L (5-15); Aspartate Amino Transferase 54 U/L (17-59); Bilirubin,Total 0.7 mg/dl (0.2-1.3); Blood Urea Nitrogen 43 mg/dl (9-20); Carbon Dioxide 24 mmol/L (22.0-30.0); Creatine Kinase 696 U/L (55-170); Creatinine Clearance Estimated 8 mL/min (50-200); Estimated Glomerular Filt Rate 9 ml/min (>60); GFR (African American) 11 ML/MIN (>60); Globulin 3.3 g/dL (1.3-3.2); Total Protein,Serum 7.2 g/dl (6.3-8.2)
[2024-12-07 22:42] LABS: Calcium 7.6 mg/dl (8.4-10.2); Glucose 150 mg/dl (74-100); Hematocrit 32.8 % (42.0-52.0); Hemoglobin 10.1 g/dL (14.1-18.0); Immature Granulocytes % 0.6 %; Magnesium 1.6 mg/dl (1.6-2.3); Mean Corpuscular HGB Conc 30.8 g/dL (31.8-35.4); Mean Corpuscular Hemoglobin 30.0 pg (27.0-31.2); Mean Corpuscular Volume 97.3 fl (80-94); Nucleated Red Blood Cells % 0 %; Phosphorous 6.2 mg/dl (2.5-4.5); Platelet Count 203 K/mm3 (142-424); Red Blood Count 3.37 M/mm3 (4.60-6.20); Red Cell Distribution Width-SD 62.2 fL; White Blood Count 13.7 K/mm3 (4.8-10.8)
[2024-12-07 22:50] LABS: Activated Partial Thrombo Time 29.1 seconds (22.8-30.6); INR 1.05 (0.9-1.1); Prothrombin Time 11.6 seconds (10.1-12.5)
[2024-12-07 22:55] LABS: Troponin I 0.09 ng/ml (0.00-0.034)
[2024-12-07 22:59] LABS: T4 (Thyroxine) 5.6 ug/dl (5.53-11.0)
[2024-12-07 23:00] VITALS: BP 206/73; PULSE 75; RESP 26; O2SAT 90
[2024-12-07 23:02] LABS: Creatinine,Serum 6.10 mg/dl (0.66-1.25)
[2024-12-07 23:04] VITALS: BP 203/70; PULSE 74; RESP 28; O2SAT 89
[2024-12-07 23:08] LABS: Lactate Venous 1.2 mmol/L (0.4-2.0); VBG HCO3 23.2 mmol/L (23-30); VBG PCO2 43.0 mmol/L (35-51); VBG PH 7.35 mmol/L (7.31-7.41); VBG PO2 99.6 mmol/L (28-40)
[2024-12-07 23:13] LABS: Thyroid Stimulating Hormone 10.20 uIU/mL (0.465-4.68)
--- NOTE | 2024-12-07 23:26 | ED_ITS ---
Discharge Plan Disposition Patient Disposition: Xfer Short-Term Hosp Condition: Fair Prescriptions Prescriptions: No Action atorvastatin 20 mg tablet 20 mg PO HS lisinopril 20 mg tablet 20 mg PO DAILY mupirocin 2 % ointment 1 applic topical BID 14 Days Qty: 15 0RF glimepiride 2 mg tablet 4 mg PO DAILY omeprazole 40 mg capsule,delayed release(DR/EC) 40 mg PO HS clopidogrel 75 mg tablet 75 mg PO HS krill oil 500 mg capsule 1 cap PO DAILY mecobalamin (vitamin B12) 1,000 mcg tablet,disintegrating 1,000 mcg SUBLINGUAL DAILY cholecalciferol (vitamin D3) 2,000 unit capsule 4,000 unit PO DAILY aspirin [Adult Low Dose Aspirin] 81 mg tablet,delayed release (DR/EC) 81 mg PO DAILY chlorthalidone 25 mg tablet 25 mg PO DAILY levothyroxine 88 mcg tablet 88 mcg PO DAILY doxycycline hyclate 100 mg capsule 100 mg PO BID 14 Days Qty: 28 0RF vitamin B complex 1 EACH tablet 1 each PO DAILY carvedilol 25 MG tablet 25 mg PO BID amlodipine 5 mg tablet 5 mg PO DAILY Rx Instructions: take one tablet by mouth once daily oxybutynin chloride 5 mg tablet 5 mg PO BID allopurinol 100 mg tablet 200 mg PO DAILY coenzyme Q10 [Co Q-10] 100 mg Capsule 100 mg PO DAILY Lokelma 5 gram Powder In Packet 5 g PO DAILY ciprofloxacin HCl 500 mg tablet 500 mg PO DAILY Qty: 5 0RF Referrals Follow up/Referrals: Jared Ramos MD [Primary Care Provider, Medical] - See instructions Clinical Impressions Clinical Impression: Rhabdomyolysis, Generalized weakness Stand Alone Forms Stand Alone Forms: Transfer Record - ED Print Language Print Language: Japanese Discharge ED Provider: Cynthia Atkinson General Adult HPI <Cynthia Atkinson DO - Last Filed: 12/07/24 23:36> General Chief complaint: PAIN Stated complaint: General Weakness Time Seen by Provider: 12/07/24 22:14 Mode of Arrival: Ambulatory Source of Information: Patient Description of Symptoms (Recalled from ER Triage Doc. by RN): pt presents to the Ed via ems, after being found on toilet. pt is unsure how long he has been down. pt last seen by daughter at 1330. pt is alert by complaining of tailbone pain. History of Present Illness HPI narrative: This patient is an 84-year-old male with a history of end-stage renal disease on Saturday and Saturday dialysis, prior TIAs on aspirin and Plavix, hypertension, hyperlipidemia, type 2 diabetes, CAD, and UTIs presenting to the emergency department for evaluation with concern because he was unable to get up off the toilet this evening. According the patient's family, they came in and found him this evening stuck on the toilet, where he had been for hours on end. He is not sure exactly what time he went to the bathroom, but he states that he was just too weak to get up. He notes that he sat slow progressive worsening in weakness for the last bit, having to sit more frequently and take breaks anytime he is up doing something and also having to try multiple times before successfully getting off the toilet. He had a life alert on but for some reason did not push this. He states that he went to have a bowel movement and he denies any excessive straining or struggling to have a bowel movement. No blood in his stools or dark tarry stools. He states he actually has had good regular bowel movements as of late. He denies any headache, vision change, chest pain, shortness of breath, abdominal pain, nausea, vomiting, changes of bowel movements, numbness, tingling, saddle anesthesia, or other concerns. He is alert and oriented x 4. His daughter states that she last saw him around 130 this evening and he was completely normal at that time, able to get out of his car and walk to his front door. Related Data Home Medications ?Medication ?Instructions ?Recorded ?Confirmed clopidogrel 75 mg tablet 75 mg PO HS ANTIPLATELET/CAD 08/14/17 11/25/24 glimepiride 2 mg tablet 4 mg PO DAILY Diabetes 08/1411/25/24 krill oil 500 mg capsule 1 cap PO DAILY Supplement 11/25/24 mecobalamin (vitamin B12) 1,000 1,000 mcg sublingual D AILY 08/14/17 11/25/24 mcg disintegrating Supplement tablet,sublingual omeprazole 40 mg capsule,delayed 40 mg PO HS Acid Refl ux 08/14/17 11/25/24 release cholecalciferol (vitamin D3) 50 4,000 unit PO DAILY Flores pplement 10/31/17 11/25/24 mcg (2,000 unit) capsule aspirin 81 mg tablet,delayed 81 mg PO DAILY Heart Heal th/CAD 07/29/18 11/25/24 release (Adult Low Dose Aspirin) atorvastatin 20 mg tablet 20 mg PO HS Cholesterol 11/2411/25/24 vitamin B complex 1 each PO DAILY Supplement 1 06/30/18 11/25/24 lisinopril 20 mg tablet 20 mg PO DAILY Blood Pressur e 10/07/19 11/25/24 chlorthalidone 25 mg tablet 25 mg PO DAILY high blood 08/09/21 11/25/24 pressure/diuretic levothyroxine 88 mcg tablet 88 mcg PO DAILY thyroid 11/25/24 amlodipine 5 mg tablet 5 mg PO DAILY Blood Pressure 12/04/22 11/25/24 carvedilol 25 mg tablet 25 mg PO BID Blood Pressure 12/04/22 11/25/24 oxybutynin chloride 5 mg tablet 5 mg PO BID overactive bladder 12/04/22 11/25/24 allopurinol 100 mg tablet 200 mg PO DAILY Gout 3 11/25/24 coenzyme Q10 100 mg capsule (Co 100 mg PO DAILY Supple ment 12/05/22 11/25/24 Q-10) sodium zirconium cyclosilicate 5 5 g PO DAILY Suppleme nt 12/05/22 11/25/24 gram oral powder packet (Lokelma) Previous Rx's ?Medication ?Instructions ?Recorded ciprofloxacin HCl 500 mg tablet 500 mg PO DAILY #5 tab s 12/05/22 doxycycline hyclate 100 mg capsule 100 mg PO BID infec tion 14 days 05/14/24 #28 caps mupirocin 2 % topical ointment 1 applic topical BID in fection 14 05/28/24 days #15 grams Allergies Allergy/AdvReac Type Severity Reaction Status Date / Time NSAIDS (Non-Steroidal AdvReac Other Verified 12/07/24 22:26 Anti-Inflamma PFS <Cynthia Atkinson DO - Last Filed: 12/07/24 23:36> FOR[facility]LY [facility] Disclaimer: The information contained in this section may have been updated after the patient was seen, as this information can be updated by other users. Medical History Acute alteration in mental status Aorto-iliac disease Chronic kidney disease Dysplasia of toenail Dystrophia unguium Hypertension with goal to be determined Hypertensive emergency without congestive heart failure Hypertensive encephalopathy Ingrown nail Keratosis Occlusion of common femoral artery Persistent headaches Stenosis of both renal arteries Stenosis of carotid artery Transient ischemic attack Bilateral iliac artery stenosis Stenosis of right renal artery Kidney stone HLD (hyperlipidemia) GERD (gastroesophageal reflux disease) Cancer Type 2 diabetes mellitus Chronic kidney disease Hypertension TIA (transient ischemic attack) Surgical History History of cholecystectomy History of total right hip replacement Family History Other Cancer Hypertension Social History Smoking Status: Never smoker alcohol intake: never substance use type: denies use current occupational status: retired Travel in the last 8 weeks?: None household members: family housing: house Have you lived/traveled outside US in past 30 days?: No Contact w/someone who lives/traveled outside US past 30 days?: No Exposure to someone with infectious disease in past 14 days?: No Do you have a fever (greater than 100.4 F or 38 C)?: No Have you tested positive for COVID-19?: No Exposed to someone with COVID-19 in past 14 days?: No Do you have a sore throat?: No Do you have a cough?: No Do you have any weakness?: No Do you have any diarrhea?: No Are you experiencing any unusual bleeding?: No Do you have any muscle aches/pain?: No Do you have any abdominal pain?: No Are you experiencing loss of taste or smell?: No Other Medical History Have you received the Pneumonia Vaccine: Yes <Cynthia Atkinson DO - Last Filed: 12/07/24 23:36> ROS Obtained: Yes All systems reviewed & no additional complaints except as documented Physical Exam <Cynthia Atkinson DO - Last Filed: 12/07/24 23:36> General General appearance: alert and in no apparent distress Comment: Thin, frail, chronically ill-appearing Head Head exam: atraumatic and normocephalic Eye Eye exam: Present normal appearance, PERRL and EOMI ENT ENT exam: Present mucous membranes moist, normal external ear exam and other (Dry mucous membranes) Neck Neck exam: Present normal inspection, full ROM and trachea midline; Absent tenderness Chest Chest inspection: Present normal inspection and symmetric chest wall rise; Absent tenderness Respiratory Respiratory exam: Present normal lung sounds bilaterally; Absent respiratory distress, wheezes, stridor or accessory muscle use Cardiovascular Cardiovascular exam: Present regular rate and normal rhythm Abdominal Exam Abdominal exam: Present soft; Absent distention, tenderness or guarding Extremities Exam Extremities exam: Present normal inspection, full ROM and normal capillary refill; Absent tenderness or edema Back Exam Back exam: Present normal inspection and full ROM; Absent tenderness Neurological Exam Neurological exam: Present alert, oriented X3, CN II-XII intact and other (Generally weak with no focal neurologic deficits noted); Absent motor sensory deficit Psychiatric Psychiatric exam: Present normal affect and normal mood Skin Skin exam: Present warm and dry Medical Decision Making <Cynthia Atkinson, DO - Last Filed: 12/07/24 23:36> Medical Records Medical records reviewed: Yes I reviewed the patient's medical records. Screening: Per USPSTF and CDC recommendations, given the prevalence of disease in our region, it is our hospital?s policy to screen for HIV and viral Hepatitis for all patients aged 18 and over and those with ongoing risk factors. Jovani Inquiry Pt receiving controlled substance: No Vital Signs: 12/07/24 22:21 12/07/24 23:00 12/07/24 23:04 Temperature 98.3 F Temperature Source Oral Pulse Rate 75 74 Pulse Rate [Right Radial] 62 Respiratory Rate 18 26 H 28 H Blood Pressure 206/73 H 203/70 H Blood Pressure [Right Arm] 208/64 H Blood Pressure Mean [Right Arm] 112 Blood Pressure Position [Right Arm] Supine 02 Sat by Pulse Oximetry 98 90 L 89 L Oxygen Delivery Method Room Air 12/07/24 23:30 Temperature Temperature Source Pulse Rate 74 Pulse Rate [Right Radial] Respiratory Rate 21 Blood Pressure 197/76 H Blood Pressure [Right Arm] Blood Pressure Mean [Right Arm] Blood Pressure Position [Right Arm] 02 Sat by Pulse Oximetry 92 L Oxygen Delivery Method Lab Data Lab results reviewed: Yes I reviewed the patient's lab results. Lab Results 12/07/24 22:17: WBC 13.7 H, RBC 3.37 L, Hgb 10.1 L, Hct 32.8 L, MCV 97.3 H, MCH 30.0, MCHC 30.8 L, RDW 17.2, Plt Count 203, MPV 10.1, Neut % (Auto) 81.2 H, Lymph % (Auto) 10.2, [place] % (Auto) 7.4, Eos % (Auto) 0.5, Baso % (Auto) 0.1, N eut # (Auto) 11.1 H, Lymph # (Auto) 1.4, [place] # (Auto) 1.0, Eos # (Auto) 0.1, Baso # (Auto) 0.0, PT 11.6, INR 1.05, APTT 29.1, Sodium 136, Potassium 4.9, Chloride 99, Carbon Dioxide 24, Anion Gap 17.9 H, BUN 43 H, Creatinine 6.10 H, Estimated Creat Clear 8, Estimated GFR 9 L*, Est GFR ( Amer) 11 L*, G lucose 150 H, Calcium 7.6 L, Phosphorus 6.2 H, Magnesium 1.6, Total Bilirubin 0.7, AST 54, ALT 22, Alkaline Phosphatase 55, Total Creatine Kinase 696 H*, T roponin I 0.09 H, Total Protein 7.2, Albumin 3.9, Globulin 3.3 H, Albumin/Globulin Ratio 1.2, TSH 10.20 H, Thyroxine (T4) 5.6 12/07/24 22:53: VBG pH 7.35, VBG pCO2 43.0, VBG pO2 99.6 H, VBG HCO3 23.2, VBG Total CO2 24.5, VBG O2 Saturation 97.0 H, VBG Base Excess -2.4, VBG Lactic Acid 1.2 12/07/24 22:17 12/07/24 22:17 Orders (Tests/Meds): ED MEDICATIONS Generic Name Dose Route Start Last Admin Trade Name Freq PRN Reason Stop Dose Admin Sodium Chloride 1,000 mls @ 100 mls/hr 12/08/24 00:45 12/08/24 00:57 Sod Chlor 0.9% 1000ml Bag IV 01/07/25 00:44 100 mls/hr .Q10H BINA Administration ORDERS Category Date Time Status CT head/brain wo con Stat Cat Scan 12/07/24 22:27 Completed CXR --portable [XR chest portable] Stat Exams 12/07/24 22:29 Completed CK [Creatine Kinase] Stat Lab 12/07/24 22:17 Completed Complete Blood Count Auto Diff Stat Lab 12/07/24 22:17 Completed Comprehensive Metabolic Panel Stat Lab 12/07/24 22:17 Completed MAG [Magnesium] Stat Lab 12/07/24 22:17 Completed PHOS [Phosphorous] Stat Lab 12/07/24 22:17 Completed PT INR [Prothrombin Time INR] Stat Lab 12/07/24 22:17 Completed PTT [Activated Partial Thrombo Time] Stat Lab 12/07/24 22:17 Completed T4 (Thyroxine) Stat Lab 12/07/24 22:17 Completed TSH [Thyroid Stimulating Hormone] Stat Lab 12/07/24 22:17 Completed Trop I [Troponin I] Stat Lab 12/07/24 22:17 Completed Troponin I Q3H Lab 12/08/24 01:30 Ordered Troponin I Q3H Lab 12/08/24 04:30 Ordered UA [Urinalysis and Microscopic] Stat Lab 12/07/24 22:27 Ordered VBG [Venous Blood Gas] Stat RT 12/07/24 22:53 Completed ECG Data Tracing #1: I reviewed this ECG and interpreted as documented below: Sinus rhythm with a ventricular rate of 78 bpm. Occasional premature supraventricular complexes. No acute ST changes concerning for ischemia ECG initial impression date: 12/07/24 ECG initial impression time: 22:10 Medical Decision Narrative: In summary, this patient is a 84-year-old male presenting to the Emergency Department for evaluation of general weakness preventing from being able to get up off the toilet this evening, where he sat for hours. Differential diagnoses considered include but are not limited to dehydration, electrolyte derangements, rhabdomyolysis, dehydration, CVA, acute cardiac event, orthostatic hypotension. Ruling out the most morbid conditions drove assessment. It should be noted patient's history includes renal disease, carotid stenosis, prior TIAs, hypertension, hyperlipidemia, type 2 diabetes, GERD, CAD which may or may not be at goal therapy. This complicates all aspects of care by increasing patient's risk for morbidity. I reviewed patient's past medical records and noted prior evaluations by podiatry for diabetic foot. Also noted prior evaluation by myself at the beginning of this month for a bleeding wound, which was cauterized here. On exam, the patient is lying in bed in no acute distress. He has dry mucous membranes. Cardiopulmonary and abdominal exams are benign. He is completely neurologically intact with no focal deficits. He is alert and oriented x 4. Workup included lab evaluation to evaluate for infectious, metabolic, cardiac derangements as well as CT head without contrast, and chest x-ray. EKG was obtained and is reassuring. Labs demonstrated mild leukocytosis, mild anemia. The anemia is chronic. Patient has reassuring VBG. Chemistry is consistent with end-stage renal disease with elevated creatinine and BUN. Potassium is within normal limits. Phosphorus is slightly high. Patient makes some urine but does not have any urine in his bladder currently.. I independently interpreted CT scan and x-ray prior to the radiologist read and noted patchy consolidation in the lungs, no acute intracranial hemorrhage or obvious acute ischemic area. Please see their read for final interpretation. Concerning findings include a mildly elevated troponin as well as an elevated CK. Patient care was signed out to the oncoming provider, Dr. Serra, pending final radiology reads and ultimate disposition. <Nam Serra MD - Last Filed: 12/08/24 01:04> Vital Signs: 12/07/24 22:21 12/07/24 23:00 12/07/24 23:04 Temperature 98.3 F Temperature Source Oral Pulse Rate 75 74 Pulse Rate [Right Radial] 62 Respiratory Rate 18 26 H 28 H Blood Pressure 206/73 H 203/70 H Blood Pressure [Right Arm] 208/64 H Blood Pressure Mean [Right Arm] 112 Blood Pressure Position [Right Arm] Supine 02 Sat by Pulse Oximetry 98 90 L 89 L Oxygen Delivery Method Room Air 12/07/24 23:30 Temperature Temperature Source Pulse Rate 74 Pulse Rate [Right Radial] Respiratory Rate 21 Blood Pressure 197/76 H Blood Pressure [Right Arm] Blood Pressure Mean [Right Arm] Blood Pressure Position [Right Arm] 02 Sat by Pulse Oximetry 92 L Oxygen Delivery Method Lab Data Lab Results 12/07/24 22:17: WBC 13.7 H, RBC 3.37 L, Hgb 10.1 L, Hct 32.8 L, MCV 97.3 H, MCH 30.0, MCHC 30.8 L, RDW 17.2, Plt Count 203, MPV 10.1, Neut % (Auto) 81.2 H, Lymph % (Auto) 10.2, [place] % (Auto) 7.4, Eos % (Auto) 0.5, Baso % (Auto) 0.1, N eut # (Auto) 11.1 H, Lymph # (Auto) 1.4, [place] # (Auto) 1.0, Eos # (Auto) 0.1, Baso # (Auto) 0.0, PT 11.6, INR 1.05, APTT 29.1, Sodium 136, Potassium 4.9, Chloride 99, Carbon Dioxide 24, Anion Gap 17.9 H, BUN 43 H, Creatinine 6.10 H, Estimated Creat Clear 8, Estimated GFR 9 L*, Est GFR ( Amer) 11 L*, G lucose 150 H, Calcium 7.6 L, Phosphorus 6.2 H, Magnesium 1.6, Total Bilirubin 0.7, AST 54, ALT 22, Alkaline Phosphatase 55, Total Creatine Kinase 696 H*, T roponin I 0.09 H, Total Protein 7.2, Albumin 3.9, Globulin 3.3 H, Albumin/Globulin Ratio 1.2, TSH 10.20 H, Thyroxine (T4) 5.6 12/07/24 22:53: VBG pH 7.35, VBG pCO2 43.0, VBG pO2 99.6 H, VBG HCO3 23.2, VBG Total CO2 24.5, VBG O2 Saturation 97.0 H, VBG Base Excess -2.4, VBG Lactic Acid 1.2 Orders (Tests/Meds): ED MEDICATIONS Generic Name Dose Route Start Last Admin Trade Name Freq PRN Reason Stop Dose Admin Sodium Chloride 1,000 mls @ 100 mls/hr 12/08/24 00:45 12/08/24 00:57 Sod Chlor 0.9% 1000ml Bag IV 01/07/25 00:44 100 mls/hr .Q10H BINA Administration ORDERS Category Date Time Status CT head/brain wo con Stat Cat Scan 12/07/24 22:27 Completed CXR --portable [XR chest portable] Stat Exams 12/07/24 22:29 Completed CK [Creatine Kinase] Stat Lab 12/07/24 22:17 Completed Complete Blood Count Auto Diff Stat Lab 12/07/24 22:17 Completed Comprehensive Metabolic Panel Stat Lab 12/07/24 22:17 Completed MAG [Magnesium] Stat Lab 12/07/24 22:17 Completed PHOS [Phosphorous] Stat Lab 12/07/24 22:17 Completed PT INR [Prothrombin Time INR] Stat Lab 12/07/24 22:17 Completed PTT [Activated Partial Thrombo Time] Stat Lab 12/07/24 22:17 Completed T4 (Thyroxine) Stat Lab 12/07/24 22:17 Completed TSH [Thyroid Stimulating Hormone] Stat Lab 12/07/24 22:17 Completed Trop I [Troponin I] Stat Lab 12/07/24 22:17 Completed Troponin I Q3H Lab 12/08/24 01:30 Ordered Troponin I Q3H Lab 12/08/24 04:30 Ordered UA [Urinalysis and Microscopic] Stat Lab 12/07/24 22:27 Ordered VBG [Venous Blood Gas] Stat RT 12/07/24 22:53 Completed Medical Decision Narrative: In summary, this patient is a 84-year-old male presenting to the Emergency Department for evaluation of general weakness preventing from being able to get up off the toilet this evening, where he sat for hours. Differential diagnoses considered include but are not limited to dehydration, electrolyte derangements, rhabdomyolysis, dehydration, CVA, acute cardiac event, orthostatic hypotension. Ruling out the most morbid conditions drove assessment. It should be noted patient's history includes renal disease, carotid stenosis, prior TIAs, hypertension, hyperlipidemia, type 2 diabetes, GERD, CAD which may or may not be at goal therapy. This complicates all aspects of care by increasing patient's risk for morbidity. I reviewed patient's past medical records and noted prior evaluations by podiatry for diabetic foot. Also noted prior evaluation by myself at the beginning of this month for a bleeding wound, which was cauterized here. On exam, the patient is lying in bed in no acute distress. He has dry mucous membranes. Cardiopulmonary and abdominal exams are benign. He is completely neurologically intact with no focal deficits. He is alert and oriented x 4. Workup included lab evaluation to evaluate for infectious, metabolic, cardiac derangements as well as CT head without contrast, and chest x-ray. EKG was obtained and is reassuring. Labs demonstrated mild leukocytosis, mild anemia. The anemia is chronic. Patient has reassuring VBG. Chemistry is consistent with end-stage renal disease with elevated creatinine and BUN. Potassium is within normal limits. Phosphorus is slightly high. Patient makes some urine but does not have any urine in his bladder currently.. I independently interpreted CT scan and x-ray prior to the radiologist read and noted patchy consolidation in the lungs, no acute intracranial hemorrhage or obvious acute ischemic area. Please see their read for final interpretation. Concerning findings include a mildly elevated troponin as well as an elevated CK. Patient care was signed out to the oncoming provider, Dr. Serra, pending final radiology reads and ultimate disposition. Serra: Upon my assumption of care patient is stable and resting comfortably. I agree with the assessment and plan from Dr. Atkinson. CT head personally interpreted does not demonstrate acute intracranial pathology, see radiology read for final interpretation. CK is elevated but I am not starting the patient on any fluids at this time as I do not want to further fluid overload him without a plan for dialysis. Troponin is also elevated but patient has no ischemic changes on EKG, has not had any chest pain, I believe this is likely a chronic problem related to his kidney dysfunction. Chest x-ray demonstrates mild patchy changes likely secondary to slight volume overload since patient is due for dialysis. He is not symptomatic from this at this time. See radiology read for final interpretation. With CK being elevated, I believe patient requires admission for rhabdomyolysis. Patient and family are comfortable with this plan. I discussed with him that he would have to be transferred since he requires routine dialysis in the morning. They are agreeable to this, they would prefer [facility] but are open to other facilities if needed. We reach out to [facility] initially but their appointment scheduler is not going to be available so we had to explore other facility options. [facility] had availability at [place] and I spoke with their hospitalist, Wilda, nurse practitioner. They do have nephrology consult available and are able to do dialysis at their facility. I discussed with Wilda that I had not yet started the patient on any fluids despite his mild rhabdo because I do not want to fluid overload him and wanted to make sure he would be able to get his dialysis in the morning as scheduled. She states he will be able to go and would like the patient to be started on 100 mL/h maintenance fluids. Normal saline 100 mL/h was initiated. We discussed this patient's troponin as well, she and I agree that it is likely related to his poor kidney function. She does not recommend any intervention at this time patient was accepted to [facility] for admission for continued management. Patient and family were updated about this. I called the patient's daughter, Julissa, by phone and informed her of this. Awaiting a bed assignment at this time. Bed assignment was provided, report called. Patient is appropriate for transfer at this time. I reassessed him immediately prior to transfer and he continues to protect his airway, resting comfortably, vital stable. Fluids will continue so patient will go via ALS ambulance. Patient was transferred in stable condition. Critical Care <Cynthia Atkinson, DO - Last Filed: 12/07/24 23:36> Critical Care Time Critical Care Time: No
[2024-12-07 23:30] VITALS: BP 197/76; PULSE 74; RESP 21; O2SAT 92
[2024-12-08 00:01] VITALS: BP 195/74; PULSE 73; RESP 18; O2SAT 91
--- NOTE | 2024-12-08 00:08 | PC.NURSE ---
Called [facility] in regards to a transfer. waiting field [employer] cannoneer back
[2024-12-08 00:31] VITALS: BP 181/119; PULSE 73; RESP 25; O2SAT 92
[2024-12-08] MEDS: 0.9 % SODIUM CHLORIDE 1000ML 1,000 ML 100 ML IV (00:57)
[2024-12-08 01:01] VITALS: BP 184/71; PULSE 71; RESP 18; O2SAT 93
[2024-12-08 01:30] VITALS: BP 138/72; PULSE 72; RESP 16; TEMP 36.6; O2SAT 92
[2024-12-08 01:34] VITALS: BP 138/72; PULSE 72; RESP 16; TEMP 36.6; O2SAT 92
== END 2024-12-08 01:36 | disposition short-term general hospital (02) ==
PROVIDERS: Emergency Provider Emergency Medicine; PCP Family Medicine
DX: M62.82 Rhabdomyolysis (principal); R53.1 Weakness; E86.0 Dehydration; N18.6 End stage renal disease; Z99.2 Dependence on renal dialysis; I12.0 Hypertensive chronic kidney disease with stage 5 chronic kidney disease or end stage renal disease
CPT/HCPCS: 70450; 71045; 80053; 82550; 82803; 83735; 84100; 84436; 84443; 84484; 85025; 85610; 85730; 93005; 96360; 99285; J7030